=== PATIENT | female | born 1950 | race Caucasian/White ===

== ENCOUNTER 2018-01-16 07:05 | Day surgery (SDC) | payer BC, SELFPAY ==
[2018-01-16 07:20] VITALS: BP 140/75; PULSE 77; RESP 14; TEMP 36.9; O2SAT 96; BMI 27.9
[2018-01-16 08:20] VITALS: BP 140/75; BP 96/50; PULSE 76; RESP 18; TEMP 36.1; O2SAT 99
[2018-01-16 08:25] VITALS: BP 112/63; BP 140/75; PULSE 73; RESP 17; O2SAT 98
[2018-01-16 08:30] VITALS: BP 132/72; BP 140/75; PULSE 73; RESP 16; O2SAT 98
[2018-01-16 08:35] VITALS: BP 123/72; BP 140/75; PULSE 67; RESP 17; TEMP 36.2; O2SAT 97
--- NOTE | 2018-01-16 08:44 | PCM.OPRPT ---
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 After obtaining informed consent, the scope was passed under direct visualization. Throughout the procedure, the patient's blood pressure pulse and position saturations were monitored continuously anesthesia. The colonoscope was introduced through the anus and advanced to the cecum, identified by the ileocolic anastomosis. The colonoscopy was performed without difficulty. The patient tolerated procedure well. Quality of bowel prep was good. Findings: The perianal and digital rectal exam revealed residual external hemorrhoidal tissue, internal hemorrhoid at the right posterior cushion. Moderate diverticulosis was noted in the sigmoid colon. The ileocolic anastomosis was widely patent. Otherwise the colon (entire examined portion) appeared normal. Retroflexed view of the distal rectum and anal verge showed an internal hemorrhoid. Impression: 1. Widely patent ileocolic anastomosis 2. Moderate diverticulosis of the sigmoid colon 3. Internal hemorrhoid-grade 1 Recommendations: Repeat colonoscopy in 2 years for screening purposes and history of colon cancer - Complications none
[2018-01-16 08:52] VITALS: BP 140/75
== END 2018-01-16 08:58 | disposition home or self-care (01) ==
LOC: EN 07:05 → AC 07:07
PROVIDERS: Family Provider Family Medicine; PCP Family Medicine; Visit Provider Surgery
PROC: 0DJD8ZZ Inspection of Lower Intestinal Tract, Via Natural or Artificial Opening Endoscopic (ICD-10-PCS; CPT 45378; principal; 2018-01-16 07:55)
DX: K57.30 Diverticulosis of large intestine without perforation or abscess without bleeding (principal); K64.8 Other hemorrhoids; Z85.038 Personal history of other malignant neoplasm of large intestine; Z87.891 Personal history of nicotine dependence
CPT/HCPCS: 45378; J7120

== ENCOUNTER → 2018-10-22 09:08 | Outpatient (CLI) | payer BC, SELFPAY | PROVIDERS: Family Provider Family Medicine; PCP Family Medicine; Visit Provider Family Medicine | DX: R31.9 Hematuria, unspecified (principal) | CPT/HCPCS: 87086 ==

== ENCOUNTER → 2018-10-29 09:51 | Outpatient (CLI) | payer BC, SELFPAY ==
--- NOTE | 2018-10-29 09:55 | US_ITS ---
STUDY: RENAL ULTRASOUND - COMPLETE REASON FOR EXAM: Female, 68 years old. Hematuria TECHNIQUE: Ultrasound evaluation of the kidneys was performed with real-time and static dugan-scale imaging. COMPARISON: None. FINDINGS: RIGHT KIDNEY: Normal location of the right kidney, which is normal in size. The right kidney measures 10.1 x 4.9 x 3.9 cm. There is a normal cortex of the right kidney. The renal cortex measures 1.2 cm. There is no right renal mass or cyst. There are no right renal calculi. There is no right hydronephrosis. DISTAL RIGHT URETER: There is non-visualization of the distal right ureter. LEFT KIDNEY: Normal location of the left kidney, which is normal in size. The left kidney measures 10.0 x 4.3 x 5.7 cm. There is a normal cortex of the left kidney. The renal cortex measures 1.3 cm. There is no left renal mass or cyst. There are no left renal calculi. There is no left hydronephrosis. DISTAL LEFT URETER: There is non-visualization of the distal left ureter. BLADDER: The distended urinary bladder has a volume of 536 ml. The post void urinary bladder has a volume of 18 ml. There is a normal wall thickness of the distended urinary bladder. There is no demonstrated mass within the urinary bladder. There are no demonstrated bladder calculi. US/Kidney and Bladder IMPRESSION: Normal ultrasound of the kidneys. Mild post void residual in the urinary bladder. Electronically Signed: Christiano Hooks DO at 23:52 EST Tel [phone], Service support ,
== END ==
PROVIDERS: Family Provider Family Medicine; PCP Family Medicine; Referring Provider Family Medicine; Visit Provider Family Medicine
DX: R31.9 Hematuria, unspecified (principal)
CPT/HCPCS: 76770

== ENCOUNTER → 2018-11-05 13:19 | Outpatient (CLI) | payer BC, SELFPAY ==
--- NOTE | 2018-11-05 13:21 | US_ITS ---
STUDY: ULTRASOUND OF THE FEMALE PELVIS - COMPLETE REASON FOR EXAM: Female, 68 years old. Postmenopausal bleeding x2 weeks LMP: Unknown. TECHNIQUE: Transabdominal and Transvaginal TECHNICAL QUALITY: Adequate. COMPARISON: None. FINDINGS: The uterus is retroverted and is in a midline position. The uterus measures 7.3 x 4.9 x 3.8 cm. There is a Nabothian cyst of the cervix. The endometrium measures 5 mm in thickness, and is fluid distended. There is no demonstrated endometrial mass. Possible pedunculated fibroid measuring 2 x 1.9 x 1.4 cm. Another mass in the pelvis measuring 3.2 x 4.3 x 2.3 cm. Unsure if this also represents a fibroid. I.U.D. - The patient does not have an I.U.D. The right ovary is visualized. The right ovary measures 3.3 x 2.6 x 2.1 cm. Dominant anechoic follicle measuring 1.6 x 1.4 x 0.6 cm. There is no visualized right adnexal mass or complex lesion. There is normal arterial and normal venous vascularity. The left ovary is visualized. The left ovary measures 3.3 x 3.1 x 1.4 cm. There is no left ovarian cyst or ovarian mass. There is no visualized left adnexal mass or complex lesion. There is normal arterial and normal venous vascularity. There is no fluid in the cul-de-sac. The pre void volume of the bladder was 209 ml. US/Pelvic (Non ) IMPRESSION: 1. Fluid distended endometrium measuring 5 mm. 2. Possible uterine fibroids versus pelvic masses. Difficult to evaluate with ultrasound. Consider female pelvic MRI to further evaluate. Electronically Signed: Anthony Madsen DO at 9:55 EST Tel , Service support ,
--- NOTE | 2018-11-05 13:22 | US_ITS ---
STUDY: ULTRASOUND OF THE FEMALE PELVIS - COMPLETE REASON FOR EXAM: Female, 68 years old. Postmenopausal bleeding x2 weeks LMP: Unknown. TECHNIQUE: Transabdominal and Transvaginal TECHNICAL QUALITY: Adequate. COMPARISON: None. FINDINGS: The uterus is retroverted and is in a midline position. The uterus measures 7.3 x 4.9 x 3.8 cm. There is a Nabothian cyst of the cervix. The endometrium measures 5 mm in thickness, and is fluid distended. There is no demonstrated endometrial mass. Possible pedunculated fibroid measuring 2 x 1.9 x 1.4 cm. Another mass in the pelvis measuring 3.2 x 4.3 x 2.3 cm. Unsure if this also represents a fibroid. I.U.D. - The patient does not have an I.U.D. The right ovary is visualized. The right ovary measures 3.3 x 2.6 x 2.1 cm. Dominant anechoic follicle measuring 1.6 x 1.4 x 0.6 cm. There is no visualized right adnexal mass or complex lesion. There is normal arterial and normal venous vascularity. The left ovary is visualized. The left ovary measures 3.3 x 3.1 x 1.4 cm. There is no left ovarian cyst or ovarian mass. There is no visualized left adnexal mass or complex lesion. There is normal arterial and normal venous vascularity. There is no fluid in the cul-de-sac. The pre void volume of the bladder was 209 ml. US/Transvaginal Non- IMPRESSION: 1. Fluid distended endometrium measuring 5 mm. 2. Possible uterine fibroids versus pelvic masses. Difficult to evaluate with ultrasound. Consider female pelvic MRI to further evaluate. Electronically Signed: Anthony Madsen DO at 9:55 EST Tel , Service support ,
== END ==
PROVIDERS: Family Provider Family Medicine; PCP Family Medicine; Referring Provider Urology; Visit Provider Urology
DX: N95.0 Postmenopausal bleeding (principal)
CPT/HCPCS: 76830; 76856; 93976

== ENCOUNTER → 2018-11-06 10:42 | Outpatient (CLI) | payer BC, SELFPAY ==
--- NOTE | 2018-11-06 | EMB_PTH ---
PATIENT: SANTI NAM LOC: [facility] U#:[id number] AGE/SX: 75/F ROOM: RE11/06/[address]: PAYAL Kilpatrick : 1950 BED: DIS: SPEC #: [id number] RECD: 11/06/18 13:08 STATUS: LOLA KEYSHAWN #: [id number] AARON: 11/06/18 00:[address]: Lorie Landry NP DEPT: SURGICAL PATHOLOGY RECD BY: Fabiano Malave ENTERED: 11/06/18 14:24 SP TYPE: ENDOM BX/C MAO DR: Dr. Adrián Mckee MD Tissues: Endometrium, NOS Procedures: Surgery Specimen Level IV HEADER OPERATION: Endometrial biopsy PRE-OP DIAGNOSIS: Postmenopausal bleeding TISSUE SUBMITTED: Endometrial biopsy MICROSCOPIC DIAGNOSIS Endometrium, biopsy: Scant strips of benign superficial glandular mucosa. See comment. AM:john 11/07/18 COMMENT The specimen primarily consists of mucous. Clinical correlation is suggested. MICROSCOPIC DESCRIPTION Slides are reviewed. GROSS DESCRIPTION Received is one container labeled with the patient's name and not further designated. The specimen consists of multiple irregular fragments of light pink-figueroa mucoid tissue that in aggregate measure 2 x 1.8 x 0.2 cm. The specimen is totally submitted in one cassette. / AM:john 11/06/18 TC:5 [facility]: [id number]
[2018-11-06 10:11] VITALS: BMI 27.9
[2018-11-08 20:44] LABS: Cancer Antigen 125 9.3 U/mL (0.0-38.1); Carbohydrate Ag 19-9 2261 5 U/mL (0-35); Carcinoembryonic Antigen 7.6 ng/mL (0.0-4.7)
[2018-11-13 11:11] LABS: HPV APTIMA, High Risk Negative (Negative)
== END ==
LOC: PAVLAB 10:44 → LABSPEC 13:39
PROVIDERS: Family Provider Family Medicine; PCP Family Medicine; Referring Provider Nurse Practitioner Women's Health; Visit Provider Nurse Practitioner Women's Health
DX: N95.0 Postmenopausal bleeding (principal); Z12.4 Encounter for screening for malignant neoplasm of cervix
CPT/HCPCS: 82378; 86301; 86304; 87624; 88175; 88305; G0145

== ENCOUNTER → 2018-11-14 12:52 | Outpatient (CLI) | payer BC, SELFPAY ==
[2018-11-06 10:11] VITALS: BMI 27.9
--- NOTE | 2018-11-14 13:19 | MRI_ITS ---
STUDY: MRI FEMALE PELVIS WITHOUT AND WITH IV CONTRAST REASON FOR EXAM: Female, 68 years old. Uterine mass, vaginal bleeding. History of colon cancer. TECHNIQUE: Multisequence multiplanar MRI of the pelvis without and with IV contrast. Gadavist, 7 mL. COMPARISON: Ultrasound pelvis 11/05/2018, CT abdomen and pelvis 01/16/2017 FINDINGS: Body wall soft tissues: No acute process. No inguinal lymphadenopathy. Osseous structures: No evidence of lytic or blastic metastatic disease. Small bowel: No acute process. Urinary tract: Distal ureters, urinary bladder normal. Ovaries: Unremarkable appearance of the left ovary with no mass or cyst. There are 2 small follicles of the right ovary measuring 9.5 mm and 7.5 mm respectively. Vagina: Normal. Cervix: Small nabothian cysts, the largest measuring approximately 8.3 mm. Uterus: The cervix anteverted, uterus retroflexed. There is a septation running down the entire length of the endometrial cavity, complete septate uterus with what appears to be a single cervix. The endometrium within the right-sided endometrium measures up to 6.6 cm and the left sided endometrium 7 mm. There is no evidence of endometrial mass. There is no evidence of myometrial mass. Large bowel: Normal appearance of the evaluated portions of the sigmoid colon. In the proximal 3rd of the rectum, there is a mass of the anterior wall the rectum measuring approximately 3.5 cm craniocaudal, 2.3 cm anterior-posterior, and 3 cm transverse. Centrally the mass has fairly abundant T2 signal suggesting mucoid features. The mass involves the rectal wall from the right 10:00 position, around the anterior margin to the leftward 5:00 position. There is obliteration of the muscular propria with extension of the mass through the muscular propria along its anterior and left anterior lateral margin. The axis of imaging along the mass makes it somewhat difficult to assess the extent of anterior extension. The mass appears to penetrate through the mesial rectal fascial/peritoneal reflection with its anterior most margin abutting the left posterior margin of the uterus. The inferior margin of the mass lies approximately 6.4 cm from the anorectal angle, and 9 cm from the anal verge. Suspected. The level of the mass on the left, a lymph node in the perirectal fat measures 4.1 mm. No other definitive adenopathy is evident. MRI/Pelvis W/WO Contrast IMPRESSION: 1. Mass within the proximal 3rd of the rectum. The left anterior portion of the mass appears to penetrate the mesorectal fascia/peritoneal reflection. Approximate staging: T4a N1 Multiple Savage images are saved to the PACS archive. 2. There is no evidence of myometrial mass. The cervix anteverted, the uterus retroflexed. Complete septate uterus. Electronically Signed: Von Mcdermott MD at 8:52 EST Tel , Service support ,
== END ==
PROVIDERS: Family Provider Family Medicine; PCP Family Medicine; Referring Provider Nurse Practitioner Women's Health; Visit Provider Nurse Practitioner Women's Health
DX: C18.0 Malignant neoplasm of cecum (principal); N95.0 Postmenopausal bleeding
CPT/HCPCS: 72197; A9585

== ENCOUNTER 2018-12-06 12:42 | Day surgery (SDC) | payer BC, SELFPAY ==
[2018-11-06 10:11] VITALS: BMI 27.9
[2018-12-06] VITALS (7 sets, daily range): BP systolic 100–149; BP diastolic 71–85; PULSE 63–74; RESP 14–16; TEMP 36.2–36.5; O2SAT 97–100; BMI 25.2
--- NOTE | 2018-12-06 08:20 | HP.PCM_ITS ---
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 Patient was diagnosed with ascending adenocarcinoma in December 2016 and underwent right hemicolectomy and also chemotherapy. Patient's port was removed in 2018. However patient began having postmenopausal vaginal bleeding. Upon workup patient was had found to have abnormal glandular cells and a subsequent MRI was performed. This did show a mass in the pelvis which invaded the uterus as well as the rectum. Patient has been followed by Dr. Whyte. She was referred to [facility] regarding oncology as well as colorectal emplaning to have chemotherapy starting 12/11/18. Patient still having vaginal bleeding pad every 2-3 days denies any blood per rectum however is also difficult to tell occasionally when she wipes she will have blood. Past Medical History Past Medical History (Chronic Problems): Chronic Problems (Last Updated 12/06/18 @ 08:19 by Emma Zurita MD) S/P colectomy (Chronic) right colectomy Acid reflux (Chronic) Medical History: Medical History (Last Updated 12/06/18 @ 08:19 by Emma Zurita MD) Acid reflux (Chronic) K21.9 Encounter for adjustment or management of vascular access device (Acute) Z45.2 Port removed in office 11/27/2017 Adenocarcinoma of cecum (Resolved) C18.0 Will get a repeat colonoscopy in a year at the end of December 2017. Peritoneal metastases C78.6 Allergies No Known Allergies Allergy (Verified 12/03/18 08:10) Home Medications: Ambulatory Orders Medication Instructions Recorded Multivitamins,Therapeutic 1 tab PO DAILY 01/12/17 [Multivitamin] Omeprazole [Prilosec] 20 mg PO DAILY 01/12/17 Fexofenadine HCl 180 mg PO DAILY 01/15/17 Docusate Sodium [Colace] 100 mg PO DAILY 12/06/18 Surgical History: Surgical History (Last Updated 11/06/18 @ 09:54 by Marisel Dimas) S/P laparoscopic colectomy Z90.49 History of Z98.891 s/p port placement Surgical History: - - right hemicolectomy 01/2017, colonoscopy 01/08 & 01/09 Psychiatric 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: - - Postmenopausal bleeding due to tumor invading the uterus Smoking Status: Former smoker - *Family History Maternal Family History: Family History (Last Updated 11/06/18 @ 09:55 by Marisel Dimas) Mother Hypertension Father Melanoma Brother Melanoma Aunt Breast cancer Review of Systems Constitutional: Denies: Anorexia Eyes: Denies: Blurred vision Cardiovascular: Denies: Chest Pain Respiratory: Denies: Shortness of breath at rest Gastrointestinal: Denies: Abdominal Pain Gynecological: Reports: Vaginal bleeding VTE Information - Inpt Only VTE Present on Admission: Yes VTE Mechan Device Prophylaxis: SCD's - Physical Exam General: Alert, Oriented x3, Cooperative, No apparent distress HEENT: Atraumatic Neck: Supple Lungs: Normal air movement Cardiovascular: Regular rate Abdomen: Soft, Non Tender, Non-Distended, - - Midline incision well-healed Extremities: No clubbing, No cyanosis, No edema Skin: No rashes Neurological: Cranial nerves II-XII grossly intact Psych/Mental Status: Normal Affect Body Mass Index (BMI) 27.9 Assessment/Plan All Active Problems (Last Updated 12/06/18 @ 08:19 by Emma Zurita MD) s/p port placement (Acute) 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 Patient has been counseled as to the risks/benefits of the procedure. I have explained the risks of the surgery, including but not limited to: infection, bleeding, injury to any blood vessels/nerves, injury to lungs (such as pneumothorax or hemothorax and need for chest tube), not having any access, nonfunctioning of port due to thrombosis, infection of port, etc. the patient understands and agrees to proceed. I have answered all the patient's questions to the patient?s satisfaction and the patient has no further questions. Emma Zurita M.D. Pager: [phone] [facility] [address] [place] [address], [facility], [address] [place] [address] Office: [phone]
--- NOTE | 2018-12-06 13:50 | PCM.HP.STD ---
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 Patient was diagnosed with ascending adenocarcinoma in December 2016 and underwent right hemicolectomy and also chemotherapy. Patient's port was removed in 2018. However patient began having postmenopausal vaginal bleeding. Upon workup patient was had found to have abnormal glandular cells and a subsequent MRI was performed. This did show a mass in the pelvis which invaded the uterus as well as the rectum. Patient has been followed by Dr. Whyte. She was referred to [facility] regarding oncology as well as colorectal emplaning to have chemotherapy starting 12/11/18. Patient still having vaginal bleeding pad every 2-3 days denies any blood per rectum however is also difficult to tell occasionally when she wipes she will have blood. Past Medical History Past Medical History (Chronic Problems): Chronic Problems (Last Updated 12/06/18 @ 08:19 by Emma Zurita MD) S/P colectomy (Chronic) right colectomy Acid reflux (Chronic) Medical History: Medical History (Last Updated 12/06/18 @ 08:19 by Emma Zurita MD) Acid reflux (Chronic) K21.9 Encounter for adjustment or management of vascular access device (Acute) Z45.2 Port removed in office 11/27/2017 Adenocarcinoma of cecum (Resolved) C18.0 Will get a repeat colonoscopy in a year at the end of December 2017. Peritoneal metastases C78.6 Allergies No Known Allergies Allergy (Verified 12/03/18 08:10) Home Medications: Ambulatory Orders Medication Instructions Recorded Multivitamins,Therapeutic 1 tab PO DAILY 01/12/17 [Multivitamin] Omeprazole [Prilosec] 20 mg PO DAILY 01/12/17 Fexofenadine HCl 180 mg PO DAILY 01/15/17 Docusate Sodium [Colace] 100 mg PO DAILY 12/06/18 Surgical History: Surgical History (Last Updated 11/06/18 @ 09:54 by Marisel Dimas) S/P laparoscopic colectomy Z90.49 History of Z98.891 s/p port placement Surgical History: - - right hemicolectomy 01/2017, colonoscopy 01/08 & 01/09 Psychiatric History: 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: - - Postmenopausal bleeding due to tumor invading the uterus Smoking Status: Former smoker - *Family History Maternal Family History: Family History (Last Updated 11/06/18 @ 09:55 by Marisel Dimas) Mother Hypertension Father Melanoma Brother Melanoma Aunt Breast cancer Review of Systems Constitutional: Denies: Anorexia Eyes: Denies: Blurred vision Cardiovascular: Denies: Chest Pain Respiratory: Denies: Shortness of breath at rest Gastrointestinal: Denies: Abdominal Pain Gynecological: Reports: Vaginal bleeding VTE Information - Inpt Only VTE Present on Admission: Yes VTE Mechan Device Prophylaxis: SCD's - Physical Exam General: Alert, Oriented x3, Cooperative, No apparent distress HEENT: Atraumatic Neck: Supple Lungs: Normal air movement Cardiovascular: Regular rate Abdomen: Soft, Non Tender, Non-Distended, - - Midline incision well-healed Extremities: No clubbing, No cyanosis, No edema Skin: No rashes Neurological: Cranial nerves II-XII grossly intact Psych/Mental Status: Normal Affect Body Mass Index (BMI) 27.9 Assessment/Plan All Active Problems (Last Updated 12/06/18 @ 08:19 by Emma Zurita MD) s/p port placement (Acute) 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 Patient has been counseled as to the risks/benefits of the procedure. I have explained the risks of the surgery, including but not limited to: infection, bleeding, injury to any blood vessels/nerves, injury to lungs (such as pneumothorax or hemothorax and need for chest tube), not having any access, nonfunctioning of port due to thrombosis, infection of port, etc. the patient understands and agrees to proceed. I have answered all the patient's questions to the patient?s satisfaction and the patient has no further questions. Emma Zurita M.D. Pager: [phone] [facility] [address] [place] [address], [facility], [address] [place] [address] Office: [phone]
[2018-12-06] MEDS: Cefazolin 2 GM in 0.9% Normal Saline 100 ML IV (14:24)
[2018-12-06] MEDS: Bupivacaine Mpf 0.5% 30 ML VIAL (14:45)
--- NOTE | 2018-12-06 15:11 | PCM.OPRPT ---
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 Placement of left IJ Port-A-Cath. 2. Use of fluoroscopy. 3. Use of ultrasound Type of Anesthesia:: MAC/Supplemental/Local Anesthesiologist: Vik Faith Special Medications: ancef 2 grams IV x1 Specimen's removed: none Estimated Blood Loss (mL): minimal Fluids Replaced: 900 cc Description of Procedure: After informed consent was given, the patient was brought to the operating room and placed in the supine position. Appropriate time out protocol was followed. He was then given IV conscious sedation for anesthesia. The patient's bilateral upper chest and neck were then prepped with a surgical skin preparation and sterile surgical drapes were placed. After proper landmarks were ascertained, the skin at the upper left chest area was then infiltrated with 1:1 mixture of 1% lidocaine with epinephrine and 0.5% maricaine. A needle trocar was then inserted into the left internal jugular vein with ultrasound guidance-multiple vessels were viewed with u/s and the left IJ was chosen-- and there was good aspiration of venous blood. A wire was then threaded into the needle trocar and this was visualized under fluoroscopy to ensure that the wire was in the superior vena cava. Once this was done, then the needle trocar was removed. A small skin cleveland was made with an 11 blade knife at the wire entrance site. The dilator with the introducer sheath attached was then placed over the wire into the left internal jugular vein via the Seldinger technique and this was visualized under fluoroscopy. The dilator and sheath were in proper position as visualized by fluoroscopy. A subcutaneous pocket was then created caudad to the catheter insertion site. A transverse skin incision was made after the skin and subcutaneous tissues were infiltrated with local anesthetic. Blunt dissection was then used to create a space large enough for placement of the subcutaneous port. The catheter was then tunneled into the subcutaneous pocket. The wire and dilator were then removed. The catheter was then threaded into the introducer sheath and was positioned with its tip at the junction of the superior vena cava and the right atrium as visualized under fluoroscopy. The excess catheter was transected. The catheter was then attached to the subcutaneous port using manufacturers guidelines. The catheter was flushed with a heparin saline mixture prior to placement. Hemostasis was carefully controlled with electrocautery. The port was sutured to the subcutaneous fascia using 3-0 PDS suture at two sites. The port was then placed in the subcutaneous pocket and the sutures were ligated. The incision were reapproximated with interrupted subdermal 3-0 vicryl sutures. The skin was reapproximated with 3-0 nylon suture in a interrupted fashion. Steristrips were used for reinforcement of the skin closure at IJ insertion site and a sterile opsite dressings were applied. The patient tolerated the procedure well. Implants Used: [employer] PowerPort isp M.R.I. 6Fr Lot [id number] Grafts/Implants Used: [employer] PowerPort isp M.R.I. 6Fr Lot [id number] - Complications none
--- NOTE | 2018-12-06 15:17 | DCINST_ITS ---
Discharge Diet: No Restrictions Discharge Activity: May not drive while taking narcotic pain medications. May shower in (days): 5 - keep port dry for 5 days, ok for lower showers or cover with taped off ziplock bag Lifting Restrictions: no lifting >15 lb w left arm x 1 week Call your doctor if your incision/area has: Continuous Slow Oozing, Sudden Increased Bleeding, Increased Pain/ Swelling, Increased Redness, Foul Smelling Discharge, Swelling at the incision site Call your doctor if you observe: Fever of 101 or Higher Remove Dressing in (days):: 3 - ok to remove neck opsite tomorrow and ok to keep other opsite in place for 2-3 days Allergies/Adverse Reactions: Allergies No Known Allergies Allergy (Verified 12/03/18 08:10) Medications to take at Discharge Multivitamins,Therapeutic [Multivitamin] 1 tab PO DAILY 01/12/17 Omeprazole [Prilosec] 20 mg PO DAILY 01/12/17 Fexofenadine HCl 180 mg PO DAILY 01/15/17 Docusate Sodium [Colace] 100 mg PO DAILY 12/06/18 Primary Care Physician: Adrián Mckee MD [Primary Care Provider] - Test Results: Test results from this visit will be discussed in further detail at your follow- up appointment, if applicable. Please Follow Up With: Emma Zurita MD - After 5 PM and on the weekends call [phone] with any concerns When: Call the office on Sunday for a follow-up appointment in 10 days from surge Proposed Discharge Date: 12/06/18
--- NOTE | 2018-12-06 15:19 | RAD_ITS ---
STUDY: X-RAY CHEST REASON FOR EXAM: Female, 68 years old. Status post port placement TECHNIQUE: Single AP portable view of the chest. COMPARISON: 05/19/2017 chest x-ray FINDINGS: There is a left-sided Port-A-Cath the tip is in the superior vena cava. There is no evidence of pneumothorax. The lungs are clear and expanded. There is no demonstrated pleural abnormality. There is borderline cardiomegaly. Normal mediastinum and mamta. Normal visualized pulmonary arteries. There is atherosclerotic tortuosity of the aortic arch and descending thoracic aorta. Normal visualized thoracic spine. Normal visualized ribs, clavicles, and shoulders. There is no demonstrated abnormality of the visualized soft tissue structures of the upper abdomen. RAD/CXR for Line Placement IMPRESSION: Left-sided Port-A-Cath tip in the superior vena cava. Electronically Signed: Susy Gee MD at 15:42 EDT Tel , Service support ,
== END 2018-12-06 16:26 | disposition home or self-care (01) ==
LOC: SDC 12:42 → AC 12:45
PROVIDERS: Family Provider Family Medicine; PCP Family Medicine; Referring Provider Surgery; Visit Provider Surgery
PROC: (CPT 36561; principal; 2018-12-06 14:15)
DX: Z45.2 Encounter for adjustment and management of vascular access device (principal); C78.6 Secondary malignant neoplasm of retroperitoneum and peritoneum; C18.0 Malignant neoplasm of cecum; K21.9 Gastro-esophageal reflux disease without esophagitis; Z90.49 Acquired absence of other specified parts of digestive tract; Z87.891 Personal history of nicotine dependence; Z85.038 Personal history of other malignant neoplasm of large intestine
CPT/HCPCS: 00532; 36561; 71045; 77001; J7120

== ENCOUNTER 2023-05-29 15:27 | Inpatient (IN) | payer MEDICARE, OTHER, SELFPAY ==
[2023-05-29] VITALS (12 sets, daily range): BP systolic 92–130; BP diastolic 48–65; PULSE 18–122; RESP 16–22; TEMP 36.2–37.2; O2SAT 96–100; BMI 25.9; BMI 25.4
--- NOTE | 2023-05-29 15:30 | EKG12_ITS ---
Test Reason : DIZZY Blood Pressure : / mmHG Vent. Rate : 078 BPM Atrial Rate : 078 BPM P-R Int : 194 ms QRS Dur : 084 ms QT Int : 356 ms P-R-T Axes : 073 064 077 degrees QTc Int : 405 ms Poor data quality, interpretation may be adversely affected Normal sinus rhythm Normal ECG Confirmed by DANIELLE FORBES, AMAURI ([id number]), scientific editor RYAN BOWEN ([id number]) on 06/01/2023 11:23:00 AM Referred By: Confirmed By:AMAURI SANTOS MD
--- NOTE | 2023-05-29 15:31 | EDS_ITS ---
HPI History of Present Illness Chief Complaint: Hypotension Narrative Narrative: Patient has a history of colon cancer, she has not been on chemotherapy for over a month, about 3 weeks ago she had surgery at [facility] and had an ileostomy placed. She has been weak since then however over the past 2 to 3 days she has been increasingly weak, she has been lightheaded quite unsteady when she walks around. She was found to have somewhat low blood pressure her visiting home nurse today she was 80s over 50s. She tells me she does feel lightheaded when she stands up. She has no vertiginous symptoms. She is denying any fevers or chills. She tells me her p.o. intake is relatively adequate per her, no excessive output in the ostomy. No urinary symptoms. She is denying any chest pain or shortness of breath. [facility] Medical History Acid reflux Adenocarcinoma of cecum Encounter for adjustment or management of vascular access device Peritoneal metastases s/p port placement Home Medications omeprazole 20 mg capsule,delayed release 20 mg PO DAILY ACID REFLUX 01/12/17 [History Last Taken 12/06/18 07:30] fexofenadine 180 mg tablet 180 mg PO DAILY PRN ALLERGIES 01/15/17 [History Last Taken Unknown] amlodipine 5 mg tablet 5 mg PO DAILY BLOOD PRESSURE 05/29/23 [History Last Taken 05/28/23] lisinopril 30 mg tablet 30 mg PO DAILY BLOOD PRESSURE 05/29/23 [History Last Taken 05/28/23] Allergy/AdvReac Type Severity Reaction Status Date / Time No Known Allergies Allergy Verified 05/29/23 15:31 Family History Mother Hypertension Father Melanoma Brother Melanoma Aunt Breast cancer Surgical History History of bowel resection History of Hx of ileostomy S/P laparoscopic colectomy s/p port placement (~12/06/18) Social History Smoking Status: Former smoker alcohol intake: current alcohol intake frequency: holidays/special occasions only substance use type: does not use caffeine: Yes what type of physical activity do you participate in: walking and weight training frequency: daily seatbelt use: always do you feel safe at home: Yes additional social history: - [employer]-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 Generalized weakness. ENT: No upper airway congestion, normal voice Neck: No neck pain Cardiovascular: No chest pain no palpitations. Respiratory: No shortness of breath or cough Gastrointestinal: No abdominal pain, nausea or vomiting. Normal output of the ostomy Genitourinary: No dysuria Musculoskeletal: Denies myalgias. Skin: No rash Neurological: No memory loss, confusion or any focal weakness Psych: No recent behavioral changes Hematologic: No easy bleeding or easy bruising EXAM Physical Exam Narrative Exam Narrative: Physical exam Blood pressure in the ED is 104/48. Heart rate is 82. General: Well nourished, Well developed, No Acute Distress Head: Normocephalic, Atraumatic Eyes: Conjunctiva not pale ENT: Dry mucous membranes Neck: Supple, Nontender, No lymphadenopathy Cardiovascular: Regular rate, Regular rhythm Chest wall: Mediport site is clean dry and intact Respiratory: No distress, CTA bilaterally Abdomen: Soft, Nontender, Nondistended. Ostomy is intact with output in the ostomy bag without any signs of infection. Back: Nontender, Normal Inspection. Negative for: CVA tenderness Extremities: Nontender, No edema Skin: Normal color, No rash Neurological: Alert, Normal Strength, Normal Sensation Const Vital Signs: 05/29/23 15:28 05/29/23 16:53 05/29/23 16:54 Temperature 97.7 F L Temperature Source Temporal Pulse Rate 82 79 Respiratory Rate 16 16 Respiratory Pattern Normal Blood Pressure 104/48 L 111/50 L Blood Pressure Mean 66 70 Pulse Ox 100 99 Oxygen Delivery Method Room Air Room Air MDM MDM MDM Narrative Medical decision making narrative: Patient is found to have acute kidney injury. Creatinine is 10, BUN is 144. Patient is also hyperkalemic at 7.2. There are no EKG changes. Patient received IV fluids and we will treat the hyperkalemia. At this time there is no evidence of sepsis or any kind of infection the CT does show possible cystitis however the patient has not made urine in a few days. I talked to the hospitalist for admission. I have a call out to nephrology to see if the patient meets criteria for emergent dialysis. In the meantime we will admit to the intensive care unit. Patient is not acidotic therefore I did not give bicarb. Patient is not have any EKG changes or instability therefore I did not give calcium for the hyperkalemia Lab Data Labs: Laboratory Results - last 24 hr 05/29/23 05/29/23 15:25 15:36 WBC 14.5 H RBC 4.29 Hgb 11.2 L Hct 36.3 L MCV 84.6 MCH 26.1 L MCHC 30.9 L RDW Std Deviation 53.7 H RDW Coeff of Ismael 17.5 H Plt Count 613 H MPV 9.9 Immature Gran % (Auto) 0.600 Neut % (Auto) 84.8 H Lymph % (Auto) 6.0 L [place] % (Auto) 8.3 Eos % (Auto) 0.1 Baso % (Auto) 0.2 Absolute Neuts (auto) 12.3 H Absolute Lymphs (auto) 0.87 Nucleated RBC % 0 PT 14.3 INR 1.1 Sodium 128 L Potassium 7.2 H* Chloride 95 L Carbon Dioxide 13.0 L Anion Gap 20 H BUN 144 H* Creatinine 10.00 H* Estim Creat Clear Calc 5.02 Est GFR (MDRD) Af Amer 5 L Est GFR (MDRD) Non-Af 4 L BUN/Creatinine Ratio 14.4 Glucose 116 H Lactic Acid 0.9 Calcium 10.5 H Total Bilirubin 0.40 AST 17 ALT 20 Alkaline Phosphatase 202 H Total Protein 8.8 H Albumin 4.1 Globulin 4.7 H Albumin/Globulin Ratio 0.9 Lipase 328 H Radiography Diagnostic Testing: Clinical Impression(s) from Imaging Studies Chest X-Ray 05/29/23 15:50 IMPRESSION: Streaky opacities in the right lung base could represent atelectasis versus infection. Electronically Signed: Carson Pruett MD at 16:27 EDT , Abdomen/Pelvis CT 05/29/23 16:19 IMPRESSION: Findings suspicious for cystitis. Correlate with urinalysis. Findings suspicious for enteritis. Bibasilar lung consolidations versus atelectasis. Consider chest CT for further evaluation. Postsurgical changes status post partial bowel resection with ileostomy in place. Electronically Signed: Carson Pruett MD at 17:02 EDT , Chest x-ray read by me as normal Critical Care Time Critical care time (excluding procedures): 30-74 minutes, Discussing w/Patient &/or Family/[employer]ipes [employer]sembler, Discussing w/Consultants, Arranging Admission or Transfer, Performing Direct Patient Care at Bedside and - (35 minutes) Discharge Plan Triage Chief Complaint: Hypotension Other Complaint: Dizziness ED Provider: Ned Posey Dx/Rx/DC Orders Clinical Impression: MAJO (acute kidney injury), Anuria, Dehydration, Acute hyperkalemia Prescriptions: No Action omeprazole 20 MG capsule 20 mg PO DAILY fexofenadine 180 MG tablet 180 mg PO DAILY PRN (Reason: ALLERGIES) amlodipine 5 mg tablet 5 mg PO DAILY lisinopril 30 mg tablet 30 mg PO DAILY Primary Care Provider: Adrián Mckee Referrals: Adrián Mckee MD [Primary Care Provider] - Disposition Disposition: Acute Care Hospital [facility]
[2023-05-29] MEDS: 0.9% Normal Saline 1,000 ML 1000 ML IV (15:34)
[2023-05-29 15:46] LABS: Absolute Lymphocyte Count 0.87 X10^3/uL (0.83-4.51); Absolute Neutrophil Count 12.3 X10^3/uL (2.0-7.7); Basophil# 0.03 X10^3/uL; Basophil% 0.2 % (0-1); Eosinophil# 0.01 X10^3/uL; Eosinophils% 0.1 % (0-5); Hematocrit 36.3 % (37-47); Hemoglobin 11.2 g/dL (12.0-15.0); Lymphocyte # 0.87 X10^3/ul (0.83-4.51); Mean Corp Hgb Conc 30.9 g/dL (32-36); Mean Corpuscular Hgb 26.1 pg (27.0-32.0); Mean Corpuscular Volume 84.6 fL (81-99); Mean Platelet Vol. 9.9 fl (6.2-12.0); Monocyte% 8.3 % (0-10); NRBC Flagged by Analyzer 0 % (0-5); Neutrophil % 84.8 % (47-70); Platelet Count 613 K/mm3 (150-450); RBC Distribution Width CV 17.5 % (11.6-14.6); RBC Distribution Width SD 53.7 fl (35.1-43.9); Red Blood Count 4.29 M/mm3 (4.2-5.4); White Blood Count 14.5 K/mm3 (4.4-11.0)
--- NOTE | 2023-05-29 15:50 | RAD_ITS ---
INDICATION: weakness EXAMINATION/TECHNIQUE: X-RAY - XR Chest 1 View COMPARISON: 12/06/2018. FINDINGS: Streaky opacities in the right lung base. Tortuous and calcified thoracic aorta. The heart is not enlarged. Left sided chest port. No pleural effusion or pneumothorax. Degenerative changes of the thoracic spine. RAD/Chest 1 View (Portable) IMPRESSION: Streaky opacities in the right lung base could represent atelectasis versus infection. Electronically Signed: Carson Pruett MD at 16:27 EDT ,
[2023-05-29 15:57] LABS: International Normalized Ratio 1.1; Prothrombin Time (Protime)PT. 14.3 SECONDS (11.7-14.9)
[2023-05-29 16:12] LABS: ALB/GLOB Ratio 0.9 RATIO (0.9-2.4); AST(SGOT) 17 U/L (15-37); Alanine Aminotransfer ALT/SGPT 20 U/L (13-56); Albumin, Serum 4.1 g/dL (3.2-5.0); Alkaline Phosphatase 202 U/L (45-117); Anion Gap 20 (5-15); BUN 144 mg/dL (7-18); BUN/Creat Ratio 14.4 RATIO (10-20); Calcium,Total 10.5 mg/dL (8.5-10.1); Chloride 95 mmol/L (98-107); EST Glomerular Filtration Rate 4 mL/min (>60); Est Glom Filt Rate - Afr Amer 5 mL/min (>60); Estimated Creatinine Clearance 5.02 ml/min; Globulin 4.7 g/dL (2.2-4.2); Glucose 116 mg/dL (74-106); Lipase 328 U/L (13-75); Potassium 7.2 mmol/L (3.5-5.1); Protein, Total 8.8 g/dL (6.4-8.2); Sodium Level 128 mmol/L (136-145)
[2023-05-29 16:18] LABS: Lactic Acid 0.9 mmol/L (0.4-1.9)
--- NOTE | 2023-05-29 16:19 | CT_ITS ---
INDICATION: pain post op EXAMINATION: CT Abdomen And Pelvis W/O Contrast Injection TECHNIQUE: Helically acquired images were obtained of the abdomen and pelvis after IV contrast. A radiation dose optimization technique was used for this scan. IV Contrast dosage and agent: None Oral contrast: None. COMPARISON: 01/16/2017 FINDINGS: Visualized lung bases: Bibasilar consolidations versus atelectasis. Liver: Unremarkable Gallbladder: Unremarkable Spleen: Unremarkable Pancreas: Unremarkable Adrenal Glands: Unremarkable Kidneys: Unremarkable Vasculature: Unremarkable GI Tract: Postsurgical changes status post partial bowel resection with ileostomy in place. A few proximal loops of small bowel demonstrate mild circumferential wall thickening with surrounding mesenteric fat stranding. Lymphadenopathy: None Peritoneum: No ascites. Bladder: Mild circumferential wall thickening with subtle surrounding inflammatory changes. Reproductive organs: Unremarkable Bones/Soft tissues: There are diffuse degenerative changes of the spine. CT/Abdomen/Pelvis without Cont IMPRESSION: Findings suspicious for cystitis. Correlate with urinalysis. Findings suspicious for enteritis. Bibasilar lung consolidations versus atelectasis. Consider chest CT for further evaluation. Postsurgical changes status post partial bowel resection with ileostomy in place. Electronically Signed: Carson Pruett MD at 17:02 EDT ,
--- NOTE | 2023-05-29 17:22 | HP.PCM_ITS ---
HPI - General General Date of Admission: 05/29/23 Date of Service: 05/29/23 Chief Complaint: hypotension HPI Narrative SANTI NAM, is a 73 F with a PMH as outlined who presents via the ED on 05/29/2023 with a complaint of hypotension. She has a history of colon cancer and had surgery with ileostomy placed ~ 3 weeks ago. She has been feeling weak and tired with associated lightheadedness. She has been unsteady on her feet. She has not been eating and drinking well. She denied any fever, chills, cough, chest pain, palpitations, dizziness, nausea, vomiting or any other symptoms. Review of systems is otherwise negative. Her home nurse went to see her and she was found to be hypotensive, so she was asked to come to the ED.She says she has been having at least 1.2L of output from the ileostomy, and has been vomiting also. She has however not been eating or drinking well. She hasnt had chemotherapy for at least one month due to her having surgery. Vitals in the ED were BP of 11/50, NM of 79, RR of 16 and she has been saturating at 99% on room air. CBC showed hb of 11.2, wbc of 14.5 and platelets of 613. Chemistry showed sodiium of 128, potassium of 7.2, bicarb of 13 and Cr of 10. Anion gap is 20. Calcium is 10.5. Lipase was 328. CT abdomen pelvis showed evidence of cystitis and enteritis and bibasilar lung consolidations vs atelectasis, with evidence of post surgical changes s/p partial bowel resection with ileostomy. She is being admitted to the ICu to be managed for MAJO with hyperkalemia and anion gap metabolic acidosis. [facility] Medical History Acid reflux Adenocarcinoma of cecum Encounter for adjustment or management of vascular access device Peritoneal metastases s/p port placement Home Medications omeprazole 20 mg capsule,delayed release 20 mg PO DAILY ACID REFLUX 01/12/17 [History Last Taken 12/06/18 07:30] fexofenadine 180 mg tablet 180 mg PO DAILY PRN ALLERGIES 01/15/17 [History Last Taken Unknown] amlodipine 5 mg tablet 5 mg PO DAILY BLOOD PRESSURE 05/29/23 [History Last Taken 05/28/23] lisinopril 30 mg tablet 30 mg PO DAILY BLOOD PRESSURE 05/29/23 [History Last Taken 05/28/23] Allergy/AdvReac Type Severity Reaction Status Date / Time No Known Allergies Allergy Verified 05/29/23 15:31 Family History Mother Hypertension Father Melanoma Brother Melanoma Aunt Breast cancer Surgical History History of bowel resection History of Hx of ileostomy S/P laparoscopic colectomy s/p port placement (~12/06/18) Social History Smoking Status: Former smoker alcohol intake: current alcohol intake frequency: holidays/special occasions only substance use type: does not use caffeine: Yes what type of physical activity do you participate in: walking and weight training frequency: daily seatbelt use: always do you feel safe at home: Yes additional social history: - [employer]-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[facility] Constitutional Constitutional: Reports anorexia, fatigue, malaise and weakness; Denies chills or fever(s) Eyes Eyes: Denies change in vision ENT HEENT: Denies dysphagia Cardiovascular Cardiovascular: Denies chest pain, edema, orthopnea, palpitations or syncope Respiratory/Chest Respiratory/Chest: Denies cough, shortness of breath at rest or shortness of breath with exertion Gastrointestinal Gastrointestinal: Denies abdominal pain, constipation, diarrhea, nausea or vomiting Genitourinary Genitourinary: Denies dysuria Musculoskeletal Musculoskeletal: Denies back pain, extremity pain or muscle weakness Neurologic Neurologic: Denies confusion, dizziness or headache(s) Psychiatric Psychiatric: Denies anxiety Hematologic/Lymphatic Hematologic/Lymphatic: Denies anemia Vital Signs Vital Signs Vital Signs: 05/29/23 15:28 05/29/23 16:53 05/29/23 16:54 Temperature 97.7 F L Temperature Source Temporal Pulse Rate 82 79 Respiratory Rate 16 16 Respiratory Pattern Normal Blood Pressure 104/48 L 111/50 L Blood Pressure Mean 66 70 Pulse Ox 100 99 Oxygen Delivery Method Room Air Room Air Weight Weight: 166 lb 0.129 oz Body Mass Index (BMI) 25.9 Physical Exam Const alert, oriented x3 and no apparent distress Constitutional Narrative: frail General Appearance: cooperative HEENT normocephalic and head/scalp atraumatic Mouth: dry mucous membranes Eyes PERRL and EOMs intact bilaterally Neck no lymphadenopathy and supple Lymph Lymphatic: no lymphadenopathy noted and no lymphedema noted Resp Resp Narrative: mildly diminiished breath sounds bibasally, no wheezes or crackles. on room air. Cardio regular rate, regular rhythm, S1 normal heart sound, S2 normal heart sound and no murmurs GI normal to inspection, nondistended, normoactive bowel sounds, soft to palpation and non-tender GI Narrative: ileostomy bag in place Extremity normal capillary refill and no clubbing, cyanosis or edema Skin General Skin Exam: no breakdown Neuro CN's II-XII intact bilaterally, no focal motor deficits and no sensory deficits noted Coordination / Balance: [id number] test normal Motor Exam: strength 5/5 throughout Psych thought process normal, cooperative and affect normal Results Lab / Micro Data 05/30/23 09:20 05/30/23 09:20 Labs: Laboratory Results - last 24 hr 05/29/23 15:25: WBC 14.5 H, RBC 4.29, Hgb 11.2 L, Hct 36.3 L, MCV 84.6, MCH 26.1 L, MCHC 30.9 L, RDW Std Deviation 53.7 H, RDW Coeff of Ismael 17.5 H, Plt Count 613 H, MPV 9.9, Immature Gran % (Auto) 0.600, Neut % (Auto) 84.8 H, Lymph % (Auto) 6.0 L, [place] % (Auto) 8.3, Eos % (Auto) 0.1, Baso % (Auto) 0.2, Absolute Neuts (auto) 12.3 H, Absolute Lymphs (auto) 0.87, Nucleated RBC % 0, PT 14.3, INR 1.1, Sodium 128 L, Potassium 7.2 H*, Chloride 95 L, Carbon Dioxide 13.0 L, Anion Gap 20 H, BUN 144 H*, Creatinine 10.00 H*, Estim Creat Clear Calc 5.02, Est GFR (MDRD) Af Amer 5 L, Est GFR (MDRD) Non-Af 4 L, BUN/Creatinine Ratio 14.4, Glucose 116 H, Calcium 10.5 H, Total Bilirubin 0.40, AST 17, ALT 20, Alkaline Phosphatase 202 H, Total Protein 8.8 H, Albumin 4.1, Globulin 4.7 H, Albumin/Globulin Ratio 0.9, Lipase 328 H 05/29/23 15:36: Lactic Acid 0.9 Radiology Impression Chest X-Ray 05/29/23 15:50 IMPRESSION: Streaky opacities in the right lung base could represent atelectasis versus infection. Electronically Signed: Carson Pruett MD at 16:27 EDT , Abdomen/Pelvis CT 05/29/23 16:19 IMPRESSION: Findings suspicious for cystitis. Correlate with urinalysis. Findings suspicious for enteritis. Bibasilar lung consolidations versus atelectasis. Consider chest CT for further evaluation. Postsurgical changes status post partial bowel resection with ileostomy in place. Electronically Signed: Carson Pruett MD at 17:02 EDT , Assessment & Plan Assessment/Plan (1) MAJO (acute kidney injury): (2) Metabolic acidosis: PLAN: Plan #Acute kidney injury with metabolic acidosis and hyperkalemia * admit to ICU * Cr is 10, with last known Cr being 0.86, from 2017 * BUN is 144 and potassium is 7.2 (no hemolysis) * sodium is 128. * consult nephrology urgently; ED doctor spoke to nephrology and Dr Tafoya requested for initiation of a bicarb drip * insert Dennis catheter * CT abdomen and pelvis showed no evidence of urinary outlet obstruction * hydrate with IVF NS @ 125cc/hr * give potassium depleting cocktail * consult critical care * didnt recently have chemotherapy so tumor lysis syndrome is lower on the list of differentials. Will check uric acid and and phosphate levels out of an abundance of precaution * #Anion gap metabolic acidosis * start bicarb drip per nephrology * bicarb is 13 and anion gap is 20. * consult nephrology * * #Hyperkalemia: as above. EKG didnt show any acute ST changes. #Hyponatremia: * sodium is 128. Likely due to dehydration. Should improve with hydration. if it doesnt, will do further workup for hyponatremia #Leucocytosis * wbc is 14.5 * denies any cough or shortness of breath * CXR showed patchy opacities in the right lung base which could represent atelectasis vs infection * CT abdomen showed bibasilar consolidations vs atelectasis. * Says she has no cough or shortness of breath no fever, the WBC could be reactive and I am leaning more towards possible atelectasis for the chest imaging findings. * Will monitor for now and if WBC trends upwards or she develops a fever, chills or shortness of breath, will have a low threshold for initiating antibiotics. 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 * Patient counseled extensively about different types of CODE STATUS including full code, DNR CCA and DNR CCA. Patient elects to be full code. Her healthcare power of procurement specialist is her daughter Jocelynn. * Total [id number] time 16 minutes. * * Total critical care time spent on evaluation and management of patient, reviewing chart and specialist notes, discussing plan with patient, discussion with nursing and ancillary staff as well as documentation: 85 mins Charges/Coding Visit Charges Inpatient E&M: 96246 Init Hosp L3 Procedures Hospitalists Procedures: 49415 Critial Care 1st Hr (advanced care plan 30 mins: [id number])
[2023-05-29] MEDS: Ceftriaxone 1 GM/50 ML BAG IV (18:02)
[2023-05-29 18:06] LABS: Bacteria 0 SEEN /hpf (None Seen); Mucous, Urine 0 SEEN /hpf (<or=2+); Red Blood Cells-Urine 0 SEEN /hpf (0-5); Squamous Epithelial Cells - UA 0 SEEN /hpf (5-10)
[2023-05-29 18:29] LABS: Uric Acid 15.8 mg/dL (2.6-6.0)
[2023-05-29 18:32] LABS: Color, Urine Yellow (Yellow); Glucose, Dipstick Normal (Normal); Ketone-Dipstick Negative (Negative); Leukocyte Esterase-Dipstick 500 /ul (Negative); Nitrite-Dipstick Negative (Negative); Occult Blood-Urine 150 /ul (Negative); Protein-Dipstick 500 mg/dl (Negative); Specific Gravity, Urine 1.015 (1.002-1.030); Urine Bilirubin Dipstick Negative (Negative); Urine Clarity Turbid (Clear); Urine Urobilinogen Normal (Normal)
--- NOTE | 2023-05-29 19:16 | ED.RN ---
1914: Report called to Yumiko BANEGAS on ICU.
[2023-05-29 19:21] LABS: White Blood Cells >100 SEEN /hpf (0-5)
[2023-05-29] MEDS: Ondansetron 4 MG/2 ML Vial IV (19:52)
[2023-05-29] MEDS: Sodium Polystyrene Sulfonate 15 GM/60 ML UDC 30 GM PO (19:57)
[2023-05-29] MEDS: 0.9% Normal Saline 1,000 ML 125 ML IV (20:00)
[2023-05-29] MEDS: Dextrose 50%-Water 25 GM/50 ML DISP.SYRIN IV (20:00)
[2023-05-29] MEDS: Insulin Lispro 10 UNIT in Syringe 0 ML 6 UNIT IV (20:20)
[2023-05-29] MEDS: Calcium Gluconate IV 3 GM in Syringe 1 EACH IV (20:21)
[2023-05-29] MEDS: Albuterol 2.5 MG/3 ML VIAL.NEB. 10 MG INHALATION (20:37)
[2023-05-29 21:09] LABS: Allen Test Positive; Base Excess -15 mmol/L (-2 to +2); Bicarbonate 11.3 mmol/L (22-26); Blood Gas Specimen Type ART; O2 Delivery Device Room Air; PO2 113 mmHG (75-100); SITE R Radial; SO2 98 % (95-99); Total Carbon Dioxide 12 mmol/L
[2023-05-29] MEDS: Heparin Injection (Vial) 5,000 UNIT/ML VIAL 5000 UNIT SC (21:50)
[2023-05-29 22:33] LABS: Anion Gap 18 (5-15); BUN 143 mg/dL (7-18); BUN/Creat Ratio 15.6 RATIO (10-20); Calcium,Total 10.9 mg/dL (8.5-10.1); Chloride 99 mmol/L (98-107); Creatinine, Serum 9.16 mg/dL (0.55-1.02); EST Glomerular Filtration Rate 5 mL/min (>60); Est Glom Filt Rate - Afr Amer 6 mL/min (>60); Estimated Creatinine Clearance 5.48 ml/min; Glucose 188 mg/dL (74-106); Potassium 5.6 mmol/L (3.5-5.1); Sodium Level 131 mmol/L (136-145)
[2023-05-30] VITALS (53 sets, daily range): BP systolic 69–143; BP diastolic 47–77; PULSE 83–112; RESP 14–24; TEMP 36.8–37.6; O2SAT 96–100; BMI 25.6
[2023-05-30] MEDS: 0.9% Normal Saline 1,000 ML 999 ML IV ×2 (00:31→02:36)
[2023-05-30] MEDS: Calcium Gluconate 1 GM/10 ML Vial 0.5 GM IVP (01:29)
[2023-05-30] MEDS: Dextrose 50%-Water 25 GM/50 ML DISP.SYRIN IV (01:31)
[2023-05-30] MEDS: Insulin Lispro 10 UNIT in Syringe 0 ML 6 UNIT IV (01:32)
[2023-05-30] MEDS: 0.9% Saline Lock 10 ML Syringe IV ×4 (01:40→06:13)
[2023-05-30] MEDS: Albuterol 2.5 MG/3 ML VIAL.NEB. 10 MG INHALATION (02:06)
[2023-05-30 03:33] LABS: Absolute Lymphocyte Count 0.84 X10^3/uL (0.83-4.51); Absolute Neutrophil Count 6.1 X10^3/uL (2.0-7.7); Basophil# 0.01 X10^3/uL; Basophil% 0.1 % (0-1); Eosinophil# 0.01 X10^3/uL; Eosinophils% 0.1 % (0-5); Hematocrit 24.6 % (37-47); Hemoglobin 7.8 g/dL (12.0-15.0); Lymphocyte # 0.84 X10^3/ul (0.83-4.51); Lymphocyte % 10.2 % (19-41); Mean Corp Hgb Conc 31.7 g/dL (32-36); Mean Corpuscular Volume 85.1 fL (81-99); Mean Platelet Vol. 9.7 fl (6.2-12.0); Monocyte# 1.23 X10^3/uL; NRBC Flagged by Analyzer 0 % (0-5); Neutrophil # 6.05 X10^3/uL (2.7-7.7); Neutrophil % 73.7 % (47-70); Platelet Count 321 K/mm3 (150-450); RBC Distribution Width CV 17.3 % (11.6-14.6); RBC Distribution Width SD 54.4 fl (35.1-43.9); Red Blood Count 2.89 M/mm3 (4.2-5.4); White Blood Count 8.2 K/mm3 (4.4-11.0)
--- NOTE | 2023-05-30 04:06 | PCM.HOSP.N ---
Hospitalist Note Patient with ongoing issues with hypotension despite IVFs. When completes she has recurrent hypotension. Normally on HTN regimen per RN report. Currently onset mild crackles/starting to appear overloaded. Obtained repeat BMP w/ K improved but notable MAJO. Suspect likely will need HD. Given current mildly overloaded appearance with aggressive IVFs already administered, no marked UOP will start NEP and continue to closely monitor. If needs HD may be difficult to be initiated given her BP.
[2023-05-30 04:23] LABS: Anion Gap 17 (5-15); BUN 128 mg/dL (7-18); BUN/Creat Ratio 15.8 RATIO (10-20); Calcium,Total 9.1 mg/dL (8.5-10.1); Chloride 106 mmol/L (98-107); Creatinine, Serum 8.09 mg/dL (0.55-1.02); EST Glomerular Filtration Rate 5 mL/min (>60); Est Glom Filt Rate - Afr Amer 6 mL/min (>60); Glucose 192 mg/dL (74-106); Potassium 4.6 mmol/L (3.5-5.1); Sodium Level 138 mmol/L (136-145)
[2023-05-30] MEDS: Loperamide 2 MG Capsule 4 MG PO (04:31)
[2023-05-30] MEDS: Heparin Injection (Vial) 5,000 UNIT/ML VIAL 5000 UNIT SC ×3 (06:12→23:40)
--- NOTE | 2023-05-30 06:16 | CON.PCM.CC_ITS ---
Assessment & Plan Assessment/Plan (1) MAJO (acute kidney injury): (2) Metabolic acidosis: PLAN: Plan RECOMMENDATIONS: 1. Start empiric broad-spectrum antimicrobials. 2. Check C. difficile PCR and enteric panel. 3. Continue Levophed to maintain mean arterial pressure at or above 65 mmHg. 4. Send type and screen. Continue to monitor H&H. Transfuse if hemoglobin drops below 7 g/dL. 5. Continue sodium bicarbonate infusion. Await nephrology consultation. 6. Continue appropriate DVT and GI prophylaxis. IMPRESSIONS: 1. Multifactorial shock The patient presented to the hospital with generalized weakness and dizziness in the setting of decreased p.o. intake and hypotension. Her presenting is likely multifactorial with intravascular volume depletion and possible sepsis contributing. The patient did develop fluid refractory hypotension, which required the initiation of vasopressor support. Potential sources of infection include pneumonia, cystitis and possible C. difficile colitis. Cultures are pending. We will plan to initiate appropriate antimicrobials at this time, pending infectious work-up. Continue Levophed to maintain a mean arterial pressure at or above 65 mmHg. 2. Acute kidney injury Most likely prerenal in etiology with evolution to ischemic ATN in the setting of #1. Urine output is minimal. The patient has been volume resuscitated and remains on Levophed. Nephrology has been consulted to evaluate the patient. Plan to continue to monitor urine output for now and await nephrology recommendations regarding the need for dialysis. 3. Anemia The patient was quite hemoconcentrated upon arrival to the hospital. With volume resuscitation her hemoglobin has dropped to 7.8 g/dL. Recommend sending type and screen and continuing to monitor H&H daily. Plan to transfuse if hemoglobin drops below 7 g/dL. Continue PPI therapy. 4. History of colon CA status post recent surgical intervention/hyp ertension/GERD Complicates care, management, recovery and prognosis. Continue to hold home antihypertensives. TIME: 38 minutes of critical care time, independent of procedures, was spent addressing the patient's multifactorial shock, acute kidney injury, anemia, review of all data and collaboration with the care team. HPI Consult Data Date of Consult: 05/30/23 HPI Narrative Reason for Consultation: Acute kidney injury HPI Narrative: The patient is a 73-year-old female, with a history as outlined below, who presented to the emergency department on May 29 with generalized weakness and dizziness. The patient has a history of colon CA and recently underwent surgery with ileostomy approximately 3 weeks ago. The patient also has a medical history significant for hypertension and GERD. The patient did report decreased p.o. intake in the days leading up to her hospitalization along with increased output from her ostomy. On presentation to the emergency department, the patient was noted to be afebrile with a presenting blood pressure of 104/48 mmHg. She was maintaining appropriate oxygen saturations on room air. Initial laboratory evaluation revealed a white blood cell count of 14,000. Hemoglobin was noted to be 11.2 g/dL. Arterial blood gas obtained on room air demonstrated a pH of 7.3 with a PCO2 of 23 and PO2 of 113. Chemistry profile was notable for a sodium of 128, potassium of 7.2, chloride of 95, bicarbonate of 13, anion gap of 20, BUN of 144 and creatinine of 10.0. Lactate was normal at 0.9. Lipase was elevated at 328. Urine analysis was positive for leukocyte esterase but no urine bacteria. Chest x-ray demonstrated streaky atelectasis in the right lung base. CT abdomen/pelvis demonstrated findings suspicious for cystitis and enteritis. Bibasilar lung consolidations were also noted. The patient received supplemental IV fluid hydration. She was initiated on a sodium bicarbonate infusion. This morning, the patient sodium has improved to 138 with a bicarbonate of 15, BUN of 128 and creatinine of 8.09. [facility] Medical History Acid reflux Adenocarcinoma of cecum Encounter for adjustment or management of vascular access device Peritoneal metastases s/p port placement Home Medications omeprazole 20 mg capsule,delayed release 20 mg PO DAILY ACID REFLUX 01/12/17 [History Last Taken 12/06/18 07:30] fexofenadine 180 mg tablet 180 mg PO DAILY PRN ALLERGIES 01/15/17 [History Last Taken Unknown] amlodipine 5 mg tablet 5 mg PO DAILY BLOOD PRESSURE 05/29/23 [History Last Taken 05/28/23] lisinopril 30 mg tablet 30 mg PO DAILY BLOOD PRESSURE 05/29/23 [History Last Taken 05/28/23] Allergy/AdvReac Type Severity Reaction Status Date / Time No Known Allergies Allergy Verified 05/29/23 15:31 Family History Mother Hypertension Father Melanoma Brother Melanoma Aunt Breast cancer Surgical History History of bowel resection History of Hx of ileostomy S/P laparoscopic colectomy s/p port placement (~12/06/18) Social History Smoking Status: Former smoker alcohol intake: current alcohol intake frequency: holidays/special occasions only substance use type: does not use caffeine: Yes what type of physical activity do you participate in: walking and weight training frequency: daily seatbelt use: always do you feel safe at home: Yes additional social history: - 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 Physical Exam Const alert and no apparent distress General Appearance: cooperative HEENT normocephalic and head/scalp atraumatic Eyes PERRL, EOMs intact bilaterally and conjunctivae normal Neck supple General: trachea midline Chest inspection of chest normal Resp normal respiratory effort Auscultation: diminished lung sounds; Negative for rales, rhonchi or wheezes Cardio regular rate and regular rhythm GI soft to palpation and non-tender Inspection: ostomy present Extremity no clubbing, cyanosis or edema Skin no rashes or lesions noted Neuro CN's II-XII intact bilaterally and no focal motor deficits Psych cooperative and affect normal Lab / Micro Data 05/30/23 09:20 05/30/23 09:20 Labs: Laboratory Results - last 24 hr 05/29/23 15:25: WBC 14.5 H, RBC 4.29, Hgb 11.2 L, Hct 36.3 L, MCV 84.6, MCH 26.1 L, MCHC 30.9 L, RDW Std Deviation 53.7 H, RDW Coeff of Ismael 17.5 H, Plt Count 613 H, MPV 9.9, Immature Gran % (Auto) 0.600, Neut % (Auto) 84.8 H, Lymph % (Auto) 6.0 L, [place] % (Auto) 8.3, Eos % (Auto) 0.1, Baso % (Auto) 0.2, Absolute Neuts (auto) 12.3 H, Absolute Lymphs (auto) 0.87, Nucleated RBC % 0, PT 14.3, INR 1.1, Sodium 128 L, Potassium 7.2 H*, Chloride 95 L, Carbon Dioxide 13.0 L, Anion Gap 20 H, BUN 144 H*, Creatinine 10.00 H*, Estim Creat Clear Calc 5.02, Est GFR (MDRD) Af Amer 5 L, Est GFR (MDRD) Non-Af 4 L, BUN/Creatinine Ratio 14.4, Glucose 116 H, Uric Acid 15.8 H, Calcium 10.5 H, Total Bilirubin 0.40, AST 17, ALT 20, Alkaline Phosphatase 202 H, Total Protein 8.8 H, Albumin 4.1, Globulin 4 .7 H, Albumin/Globulin Ratio 0.9, Lipase 328 H 05/29/23 15:36: Lactic Acid 0.9 05/29/23 17:45: Urine Color Yellow, Urine Clarity Turbid, Urine pH 7.0, Ur Specific [place] 1.015, Urine Protein 500 H, Urine Glucose (UA) Normal, Urine Ketones Negative, Urine Occult Blood 150 H, Urine Nitrite Negative, Urine Bilirubin Negative, Urine Urobilinogen Normal, Ur Leukocyte Esterase 500 H, Urine RBC 0 SEEN, Urine WBC >100 SEEN, Ur Squamous Epith Cells 0 SEEN, Urine Bacteria 0 SEEN, Urine Mucus 0 SEEN 05/29/23 21:48: Sodium 131 L, Potassium 5.6 H, Chloride 99, Carbon Dioxide 14.0 L, Anion Gap 18 H, BUN 143 H*, Creatinine 9.16 H*, Estim Creat Clear Calc 5.48, Est GFR (MDRD) Af Amer 6 L, Est GFR (MDRD) Non-Af 5 L, BUN/Creatinine Ratio 15.6, Glucose 188 H, Calcium 10.9 H 05/30/23 03:25: WBC 8.2, RBC 2.89 L, Hgb 7.8 L, Hct 24.6 L, MCV 85.1, MCH 27.0, MCHC 31.7 L, RDW Std Deviation 54.4 H, RDW Coeff of Ismael 17.3 H, Plt Count 321, MPV 9.7, Immature Gran % (Auto) 0.900, Neut % (Auto) 73.7 H, Lymph % (Auto) 10.2 L, [place] % (Auto) 15.0 H, Eos % (Auto) 0.1, Baso % (Auto) 0.1, Absolute Neuts (auto) 6.1, Absolute Lymphs (auto) 0.84, Nucleated RBC % 0, Sodium 138, Potassium 4.6, Chloride 106, Carbon Dioxide 15.0 L, Anion Gap 17 H, BUN 128 H*, Creatinine 8.09 H*, Estim Creat Clear Calc 6.20, Est GFR (MDRD) Af Amer 6 L, Est GFR (MDRD) Non-Af 5 L, BUN/Creatinine Ratio 15.8, Glucose 192 H, Calcium 9.1 05/30/23 04:40: Procalcitonin 0.20 H Micro: Microbiology 05/30/23 04:30 Stool Stool Occult Blood (JULIET) - Final ABG Data ABG results: ABG 05/29/23 21:05 Specimen Type ART Sample Site R Radial pH 7.30 L Bicarbonate Actual 11.3 L Total CO2 12 Base Excess -15 L O2 Saturation 98 ABG pCO2 23.0 L ABG pO2 113 H Shantanu Test Positive O2 Delivery Device Room Air Radiology Impression Chest X-Ray 05/29/23 15:50 IMPRESSION: Streaky opacities in the right lung base could represent atelectasis versus infection. Electronically Signed: Carson Pruett MD at 16:27 EDT , Abdomen/Pelvis CT 05/29/23 16:19 IMPRESSION: Findings suspicious for cystitis. Correlate with urinalysis. Findings suspicious for enteritis. Bibasilar lung consolidations versus atelectasis. Consider chest CT for further evaluation. Postsurgical changes status post partial bowel resection with ileostomy in place. Electronically Signed: Carson Pruett MD at 17:02 EDT , Charges/Coding Procedures Hospitalists Procedures: [id number] Critial Care 1st Hr
--- NOTE | 2023-05-30 07:05 | NURSING ---
Addendum entered by Bel Boswell 05/30/23 07:10: Correction: 250 mL Original Note: Upon further investigation, patient wilson tubing was found to be kinked. Preventing urine from flowing. After straightening catheter, patient had about 400 mL of output.
--- NOTE | 2023-05-30 07:14 | PN.HOSP_ITS ---
Objective Data Objective Data Vital Signs: Vital Signs Temp Pulse Resp BP Pulse Ox O2 Del Method 98.6 F 85 19 H 125/58 H 98 Room Air 05/30/23 07:00 05/30/23 07:00 05/30/23 07:00 05/30/23 07:00 05/30/23 07:00 05/30/23 07:00 Oxygen Delivery Method Room Air Weight: 163 lb 9.328 oz Body Mass Index (BMI) 25.6 Intake & Output: Intake and Output for Last 24 Hours 05/28/23 05/29/23 05/30/23 23:59 23:59 23:59 Intake Total 1080 / 1080 4211.73 / 4211.73 Output Total 415 / 430 1715 / 1715 Balance 665 / 650 2496.73 / 2496.73 Lab / Micro Data 05/30/23 09:20 05/30/23 09:20 Labs: Laboratory Results - last 24 hr 05/29/23 15:25: WBC 14.5 H, RBC 4.29, Hgb 11.2 L, Hct 36.3 L, MCV 84.6, MCH 26.1 L, MCHC 30.9 L, RDW Std Deviation 53.7 H, RDW Coeff of Ismael 17.5 H, Plt Count 613 H, MPV 9.9, Immature Gran % (Auto) 0.600, Neut % (Auto) 84.8 H, Lymph % (Auto) 6.0 L, [place] % (Auto) 8.3, Eos % (Auto) 0.1, Baso % (Auto) 0.2, Absolute Neuts (auto) 12.3 H, Absolute Lymphs (auto) 0.87, Nucleated RBC % 0, PT 14.3, INR 1.1, Sodium 128 L, Potassium 7.2 H*, Chloride 95 L, Carbon Dioxide 13.0 L, Anion Gap 20 H, BUN 144 H*, Creatinine 10.00 H*, Estim Creat Clear Calc 5.02, Est GFR (MDRD) Af Amer 5 L, Est GFR (MDRD) Non-Af 4 L, BUN/Creatinine Ratio 14.4, Glucose 116 H, Uric Acid 15.8 H, Calcium 10.5 H, Total Bilirubin 0.40, AST 17, ALT 20, Alkaline Phosphatase 202 H, Total Protein 8.8 H, Albumin 4.1, Globulin 4.7 H, Albumin/Globulin Ratio 0.9, Lipase 328 H 05/29/23 15:36: Lactic Acid 0.9 05/29/23 17:45: Urine Color Yellow, Urine Clarity Turbid, Urine pH 7.0, Ur Specific [employer] 1.015, Urine Protein 500 H, Urine Glucose (UA) Normal, Urine Ketones Negative, Urine Occult Blood 150 H, Urine Nitrite Negative, Urine Bilirubin Negative, Urine Urobilinogen Normal, Ur Leukocyte Esterase 500 H, Urine RBC 0 SEEN, Urine WBC >100 SEEN, Ur Squamous Epith Cells 0 SEEN, Urine Bacteria 0 SEEN, Urine Mucus 0 SEEN 05/29/23 21:48: Sodium 131 L, Potassium 5.6 H, Chloride 99, Carbon Dioxide 14.0 L, Anion Gap 18 H, BUN 143 H*, Creatinine 9.16 H*, Estim Creat Clear Calc 5.48, Est GFR (MDRD) Af Amer 6 L, Est GFR (MDRD) Non-Af 5 L, BUN/Creatinine Ratio 15.6, Glucose 188 H, Calcium 10.9 H 05/30/23 03:25: WBC 8.2, RBC 2.89 L, Hgb 7.8 L, Hct 24.6 L, MCV 85.1, MCH 27.0, MCHC 31.7 L, RDW Std Deviation 54.4 H, RDW Coeff of Ismael 17.3 H, Plt Count 321, MPV 9.7, Immature Gran % (Auto) 0.900, Neut % (Auto) 73.7 H, Lymph % (Auto) 10.2 L, [place] % (Auto) 15.0 H, Eos % (Auto) 0.1, Baso % (Auto) 0.1, Absolute Neuts (auto) 6.1, Absolute Lymphs (auto) 0.84, Nucleated RBC % 0, Sodium 138, Potassium 4.6, Chloride 106, Carbon Dioxide 15.0 L, Anion Gap 17 H, BUN 128 H*, Creatinine 8.09 H*, Estim Creat Clear Calc 6.20, Est GFR (MDRD) Af Amer 6 L, Est GFR (MDRD) Non-Af 5 L, BUN/Creatinine Ratio 15.8, Glucose 192 H, Calcium 9.1 05/30/23 04:40: Procalcitonin 0.20 H Micro: Microbiology 05/30/23 04:30 Stool Stool Occult Blood (JULIET) - Final ABG Data ABG results: ABG 05/29/23 21:05 Specimen Type ART Sample Site R Radial pH 7.30 L Bicarbonate Actual 11.3 L Total CO2 12 Base Excess -15 L O2 Saturation 98 ABG pCO2 23.0 L ABG pO2 113 H Shantanu Test Positive O2 Delivery Device Room Air Radiography Diagnostic Testing: Radiology Impression Chest X-Ray 05/29/23 15:50 IMPRESSION: Streaky opacities in the right lung base could represent atelectasis versus infection. Electronically Signed: Carson Pruett MD at 16:27 EDT , Abdomen/Pelvis CT 05/29/23 16:19 IMPRESSION: Findings suspicious for cystitis. Correlate with urinalysis. Findings suspicious for enteritis. Bibasilar lung consolidations versus atelectasis. Consider chest CT for further evaluation. Postsurgical changes status post partial bowel resection with ileostomy in place. Electronically Signed: Carson Pruett MD at 17:02 EDT , Assessment & Plan Assessment/Plan (1) MAJO (acute kidney injury): (2) Metabolic acidosis: PLAN: Plan 73-year-old female is being admitted through ED for generalized weakness, lightheadedness, hypotension, vomiting and increased ileostomy output at least 1.2 L daily. Patient had decreased urine output very concentrated before admission. Overnight patient continued to be low blood pressure/recurrent hypotension despite IV fluid patient started developing crackles therefore started on IV norepinephrine drip. #Acute kidney injury with metabolic acidosis and hyperkalemia with anion gap metabolic acidosis * Admitted to ICU. * Cr is 10, with last known Cr being 0.86, from 2017 * BUN is 144 and potassium is 7.2 (no hemolysis). Repeat potassium is 4.6. BUNs/creatinine 1.88/8.07 * sodium is 128. Martin sodium 138. * Design Inserter is consulted; ED doctor spoke to nephrology and Dr Tafoya. Patient on bicarb drip * Dennis catheter. Urine output 165 mL on 9/5 and 265 mL since midnight. * CT abdomen and pelvis showed no evidence of urinary outlet obstruction * didnt recently have chemotherapy so tumor lysis syndrome is lower on the list of differentials. * Repeat bicarb is 15. Anion gap 17. High anion gap metabolic acidosis. * EKG didnt show any acute ST changes. * #Hyponatremia: sodium is 128. Likely due to dehydration. Repeat sodium is 138 #Multifactorial shock: Patient presented with hypotension with decreased intake increased ileostomy output. Patient developed refractory hypotension therefore started on norepinephrine. Potential sources of infection include pneumonia cystitis possible C. difficile. Cultures are pending. * wbc is 14.5. Repeat labs shows WBC count 8.2 thousand. Hemoglobin 7.8. Neutrophils 73%., Lymphocyte 10%. Monocytosis 15%. * denies any cough or shortness of breath * CXR showed patchy opacities in the right lung base which could represent atelectasis vs infection * CT abdomen showed bibasilar consolidations vs atelectasis. * Says she has no cough or shortness of breath no fever, the WBC could be reactive. * Started on White antibiotic. 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 * hasnt had chemotherapy for ~ 4 weeks. Uric acid 15.8. Lactic acid normal. * s/p colectomy. * had surgery with ileostomy bag placement a few weeks ago * management as per oncology as an outpatient. * Stool output 250 mill 9/5, 1650 mL today. Stool for enteric bacteriology panel and C. difficile ordered. DVT prophylaxis: heparin Code status; full code. * Patient counseled extensively about different types of CODE STATUS including full code, DNR CCA and DNR CCA. Patient elects to be full code. Her healthcare power of civil litigation attorney is her daughter Jocelynn. Total time of the visit including total time spent in counseling or coordination of care, (more than 50% of the total time, spent in obtaining medical information from nurses and other ancillary care providers,explaining to the patient about labs, imaging, diagnosis and management of active complex medical conditions), discussion with consultants, review of labs and imaging is 40 minutes. Charges/Coding Visit Charges Inpatient E&M: 75092 Subs Hosp L3
[2023-05-30] MEDS: Pantoprazole Sodium 20 MG Tablet PO (08:12)
[2023-05-30] MEDS: amLODIPine 5 MG Tablet PO (08:12)
[2023-05-30 09:59] LABS: Absolute Lymphocyte Count 0.83 X10^3/uL (0.83-4.51); Absolute Neutrophil Count 9.4 X10^3/uL (2.0-7.7); Basophil# 0.03 X10^3/uL; Basophil% 0.3 % (0-1); Eosinophil# 0.04 X10^3/uL; Eosinophils% 0.3 % (0-5); Hematocrit 25.2 % (37-47); Hemoglobin 8.3 g/dL (12.0-15.0); Lymphocyte # 0.83 X10^3/ul (0.83-4.51); Lymphocyte % 7.1 % (19-41); Mean Corp Hgb Conc 32.9 g/dL (32-36); Mean Corpuscular Hgb 27.6 pg (27.0-32.0); Mean Corpuscular Volume 83.7 fL (81-99); Mean Platelet Vol. 9.9 fl (6.2-12.0); Monocyte# 1.35 X10^3/uL; Monocyte% 11.5 % (0-10); NRBC Flagged by Analyzer 0 % (0-5); Neutrophil # 9.42 X10^3/uL (2.7-7.7); Neutrophil % 80.3 % (47-70); Platelet Count 441 K/mm3 (150-450); RBC Distribution Width CV 17.5 % (11.6-14.6); RBC Distribution Width SD 53.6 fl (35.1-43.9); Red Blood Count 3.01 M/mm3 (4.2-5.4); White Blood Count 11.7 K/mm3 (4.4-11.0)
--- NOTE | 2023-05-30 10:15 | CASEMGMT ---
Addendum entered by Amanda Kline 05/30/23 13:48: Confirmation pt is active with [facility]care with SN services, they are able to accept pt back for care. Original Note: BASSAM DEL VALLE Assessment: Face to Face with pt for initial transition planning/care coordination assessment. BASSAM DEL VALLE introduced self and role at [facility], pt voices understanding and consents to assessment. Pt is A/O x4 and answers all questions appropriately at this time. Pt lying in bed in no distress. Care providers, pharmacy, and demographics verified/updated. Admitting Dx: MAJO, hyperkalemia PCP:Rafi Specialists:[facility], onc; [facility], colorectal OR Preferred Pharmacy: [facility] Insurance: [employer], [employer] Supp Prescription Benefit: yes LNOK: Jocelynn Agrawal dtr Living Arrangements: Pt lives alone in a single story home with 4 steps to enter. Pt reports she typically is I in ADL's but in the last week has needed help. Pt does her own meals, groceries and laundry. Pt denies concerns at home. Transportation: Pt drives self and denies concerns with transportation. DME/HHC/SNF: Pt has a FWW that she just started using a couple of days ago. Pt receives ostomy supplies from [facility] Homecare in which she is active with for SN. Pt states she could be independent with all aspects of the care of her ostomy but [facility] is assisting still. Pt denies SNF stays. Pt states no concerns with going home at time of dc. Pt would like to return home with [facility] Homecare. She is open to adding therapy if she needs it. DC mail handler assistant [facility] and they are willing to continue her care post dc. Pt denies need for a list of other options of [facility] agencies. Pt states no further concerns/needs. CM to follow. Advised pt to ask CM if any further question/concerns/needs arise, voices understanding. Pt Goal: Home with [facility] Plan: Home with [facility], follow to add therapy; pending course of hospitalization
[2023-05-30 10:19] LABS: Phosphorus 8.1 mg/dL (2.5-4.9)
[2023-05-30 10:25] LABS: Magnesium 2.1 mg/dL (1.6-2.6)
[2023-05-30 10:29] LABS: Anion Gap 16 (5-15); BUN 125 mg/dL (7-18); BUN/Creat Ratio 17.5 RATIO (10-20); Calcium,Total 9.1 mg/dL (8.5-10.1); Chloride 101 mmol/L (98-107); Creatinine, Serum 7.16 mg/dL (0.55-1.02); EST Glomerular Filtration Rate 6 mL/min (>60); Est Glom Filt Rate - Afr Amer 7 mL/min (>60); Estimated Creatinine Clearance 7.01 ml/min; Glucose 234 mg/dL (74-106); Sodium Level 134 mmol/L (136-145)
--- NOTE | 2023-05-30 10:31 | CASEMGMT ---
Discharge Planning Resumption referral sent to [facility] via [facility]. Kathleen Shin, Dicharge Planning Asst.
--- NOTE | 2023-05-30 11:47 | CON.PCM.RE_ITS ---
Assessment & Plan Assessment/Plan (1) MAJO (acute kidney injury): PLAN: Acute renal failure. Normal baseline creatinine. CT abdomen without any hydronephrosis. She had a CT cystogram with [facility] on the which did not show any urinary leak. Ileostomy output has been around 1200 cc a day. Poor appetite, poor oral intake. Likely volume depletion. Continue IV bicarbonate for now. Hyperkalemia. Potassium has improved. HPI Consult Data Date of Consult: 05/30/23 HPI Narrative Reason for Consultation: Renal failure HPI Narrative: SANTI NAM, is a 73 F who presents hospital with acute renal failure. Nephrology on consult for the same. Most of her recent care has been with [facility]. Review of records. She has known history of colon cancer which was initially diagnosed in 2017. Initially had hemicolectomy. 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 Recently had peritoneal metastasis resection along with Bilateral ureteral stents Exploratory laparotomy with extensive lysis of adhesions Resection of pelvic metastasis included vaginal cuff repair and partial bladder resection Colorectal anastomosis Terminal ileal resection with ileostomy Splenic flexure mobilization Bladder repair by urology Vaginal cuff resection by [facility]EL[facility]IST[facility] oncologist Omental pedicle graft She was discharged home on the . Says she has been feeling weak since then. Poor appetite. Urine output stopped completely over the weekend. Found to have acute renal failure, acidosis Somewhat better today [facility] Medical History Acid reflux Adenocarcinoma of cecum Encounter for adjustment or management of vascular access device Peritoneal metastases s/p port placement Home Medications omeprazole 20 mg capsule,delayed release 20 mg PO DAILY ACID REFLUX 01/12/17 [History Last Taken 12/06/18 07:30] fexofenadine 180 mg tablet 180 mg PO DAILY PRN ALLERGIES 01/15/17 [History Last Taken Unknown] amlodipine 5 mg tablet 5 mg PO DAILY BLOOD PRESSURE 05/29/23 [History Last Taken 05/28/23] lisinopril 30 mg tablet 30 mg PO DAILY BLOOD PRESSURE 05/29/23 [History Last Taken 05/28/23] Allergy/AdvReac Type Severity Reaction Status Date / Time No Known Allergies Allergy Verified 05/29/23 15:31 Family History Mother Hypertension Father Melanoma Brother Melanoma Aunt Breast cancer Surgical History History of bowel resection History of Hx of ileostomy S/P laparoscopic colectomy s/p port placement (~12/06/18) Social History Smoking Status: Former smoker alcohol intake: current alcohol intake frequency: holidays/special occasions only substance use type: does not use caffeine: Yes what type of physical activity do you participate in: walking and weight training frequency: daily seatbelt use: always do you feel safe at home: Yes additional social history: - [employer]-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 ROS ROS Narrative negative except above Physical Exam Narrative Alert awake oriented x 3 no obvious distress no pallor no icterus no JVD s1s2 no murmurs lungs clear abdomen soft no organomegaly no edema no cyanosis wilson + Lab / Micro Data 05/30/23 09:20 05/30/23 09:20 Labs: Laboratory Results - last 24 hr 05/29/23 15:25: WBC 14.5 H, RBC 4.29, Hgb 11.2 L, Hct 36.3 L, MCV 84.6, MCH 26.1 L, MCHC 30.9 L, RDW Std Deviation 53.7 H, RDW Coeff of Ismael 17.5 H, Plt Count 613 H, MPV 9.9, Immature Gran % (Auto) 0.600, Neut % (Auto) 84.8 H, Lymph % (Auto) 6.0 L, [place] % (Auto) 8.3, Eos % (Auto) 0.1, Baso % (Auto) 0.2, Absolute Neuts (auto) 12.3 H, Absolute Lymphs (auto) 0.87, Nucleated RBC % 0, PT 14.3, INR 1.1, Sodium 128 L, Potassium 7.2 H*, Chloride 95 L, Carbon Dioxide 13.0 L, Anion Gap 20 H, BUN 144 H*, Creatinine 10.00 H*, Estim Creat Clear Calc 5.02, Est GFR (MDRD) Af Amer 5 L, Est GFR (MDRD) Non-Af 4 L, BUN/Creatinine Ratio 14.4, Glucose 116 H, Uric Acid 15.8 H, Calcium 10.5 H, Total Bilirubin 0.40, AST 17, ALT 20, Alkaline Phosphatase 202 H, Total Protein 8.8 H, Albumin 4.1, Globulin 4.7 H, Albumin/Globulin Ratio 0.9, Lipase 328 H 05/29/23 15:36: Lactic Acid 0.9 05/29/23 17:45: Urine Color Yellow, Urine Clarity Turbid, Urine pH 7.0, Ur Specific [place] 1.015, Urine Protein 500 H, Urine Glucose (UA) Normal, Urine Ketones Negative, Urine Occult Blood 150 H, Urine Nitrite Negative, Urine Bilirubin Negative, Urine Urobilinogen Normal, Ur Leukocyte Esterase 500 H, Urine RBC 0 SEEN, Urine WBC >100 SEEN, Ur Squamous Epith Cells 0 SEEN, Urine Bacteria 0 SEEN, Urine Mucus 0 SEEN 05/29/23 21:48: Sodium 131 L, Potassium 5.6 H, Chloride 99, Carbon Dioxide 14.0 L, Anion Gap 18 H, BUN 143 H*, Creatinine 9.16 H*, Estim Creat Clear Calc 5.48, Est GFR (MDRD) Af Amer 6 L, Est GFR (MDRD) Non-Af 5 L, BUN/Creatinine Ratio 15.6, Glucose 188 H, Calcium 10.9 H 05/30/23 03:25: WBC 8.2, RBC 2.89 L, Hgb 7.8 L, Hct 24.6 L, MCV 85.1, MCH 27.0, MCHC 31.7 L, RDW Std Deviation 54.4 H, RDW Coeff of Ismael 17.3 H, Plt Count 321, MPV 9.7, Immature Gran % (Auto) 0.900, Neut % (Auto) 73.7 H, Lymph % (Auto) 10.2 L, [place] % (Auto) 15.0 H, Eos % (Auto) 0.1, Baso % (Auto) 0.1, Absolute Neuts (auto) 6.1, Absolute Lymphs (auto) 0.84, Nucleated RBC % 0, Sodium 138, Potassium 4.6, Chloride 106, Carbon Dioxide 15.0 L, Anion Gap 17 H, BUN 128 H*, Creatinine 8.09 H*, Estim Creat Clear Calc 6.20, Est GFR (MDRD) Af Amer 6 L, Est GFR (MDRD) Non-Af 5 L, BUN/Creatinine Ratio 15.8, Glucose 192 H, Calcium 9.1 05/30/23 04:40: Procalcitonin 0.20 H 05/30/23 09:20: WBC 11.7 H, RBC 3.01 L, Hgb 8.3 L, Hct 25.2 L, MCV 83.7, MCH 27.6, MCHC 32.9, RDW Std Deviation 53.6 H, RDW Coeff of Ismael 17.5 H, Plt Count 441, MPV 9.9, Immature Gran % (Auto) 0.500, Neut % (Auto) 80.3 H, Lymph % (Auto) 7.1 L, [place] % (Auto) 11.5 H, Eos % (Auto) 0.3, Baso % (Auto) 0.3, Absolute Neuts (auto) 9.4 H, Absolute Lymphs (auto) 0.83, Nucleated RBC % 0, Sodium 134 L, Potassium 5.0, Chloride 101, Carbon Dioxide 17.0 L, Anion Gap 16 H, BUN 125 H*, Creatinine 7.16 H, Estim Creat Clear Calc 7.01, Est GFR (MDRD) Af Amer 7 L, Est GFR (MDRD) Non-Af 6 L, BUN/Creatinine Ratio 17.5, Glucose 234 H, Calcium 9.1, Phosphorus 8.1 H, Magnesium 2.1, Blood Type B NEGATIVE, Antibody Screen NEGATIVE Micro: Microbiology 05/30/23 04:30 Stool Stool Occult Blood (JULIET) - Final ABG Data ABG results: ABG 05/29/23 21:05 Specimen Type ART Sample Site R Radial pH 7.30 L Bicarbonate Actual 11.3 L Total CO2 12 Base Excess -15 L O2 Saturation 98 ABG pCO2 23.0 L ABG pO2 113 H Shantanu Test Positive O2 Delivery Device Room Air Radiology Impression Chest X-Ray 05/29/23 15:50 IMPRESSION: Streaky opacities in the right lung base could represent atelectasis versus infection. Electronically Signed: Carson Pruett MD at 16:27 EDT , Abdomen/Pelvis CT 05/29/23 16:19 IMPRESSION: Findings suspicious for cystitis. Correlate with urinalysis. Findings suspicious for enteritis. Bibasilar lung consolidations versus atelectasis. Consider chest CT for further evaluation. Postsurgical changes status post partial bowel resection with ileostomy in place. Electronically Signed: Carson Pruett MD at 17:02 EDT ,
[2023-05-30 12:03] LABS: M R Staph aureus DNA By PCR Negative (Negative)
[2023-05-30 12:05] LABS: Probe Check PASS; Specimen Processing Control PASS
[2023-05-30 12:13] LABS: CPK Total, Creatine Kinase 34 U/L (26-192)
--- NOTE | 2023-05-30 12:50 | PCM.RX.CS ---
Consult Antibiotic Management Pharmacy has been consulted to manage selected antiobiotic: Vancomycin Type of Intervention Type of Consult: New start Suspected Infection Suspected Infection: Pneumonia Prior Doses of Antibiotics Prior Doses of Antibiotics Received/Current Regimen: Received 1750mg iv x 1 on 05.30.23. Labs Labs: Sodium 134 mmol/L (136-145) L 05/30/23 09:20 Potassium 5.0 mmol/L (3.5-5.1) 05/30/23 09:20 Chloride 101 mmol/L (98-107) 05/30/23 09:20 Carbon Dioxide 17.0 mmol/L (21.0-32.0) L 05/30/23 09:20 Anion Gap 16 (5-15) H 05/30/23 09:20 BUN 125 mg/dL (7-18) H* 05/30/23 09:20 Creatinine 7.16 mg/dL (0.55-1.02) H 05/30/23 09:20 Est GFR (MDRD) Af Amer 7 mL/min (>60) L 05/30/23 09:20 Est GFR (MDRD) Non-Af 6 mL/min (>60) L 05/30/23 09:20 BUN/Creatinine Ratio 17.5 RATIO (10-20) 05/30/23 09:20 Glucose 234 mg/dL (74-106) H 05/30/23 09:20 Microbiology Microbiology: Microbiology 05/30/23 04:30 Stool Stool Occult Blood (JULIET) - Final Dosing Weight Weight used for dosin.2 kg Estimated Creatinine Clearance Estimated Creatinine Clearance: 6 ml/min Goal Trough Goal Trough: 15-20 mcg/mL Pharmacy Plan for Drug Dosing Pharmacy Plan for Drug Dosing: Cr 8.09m with CrCl ~6ml/min. Given a 1x order of ~25mg/kg (1750mg) as 1x order. No further dosing to be done at this time due to renal function. Have ordered random level for AM of 06.01.23. Pharmacy Service will continue to monitor and adjust dosing as required. Follow-Up Labs Follow-Up Labs: Trough: Other (random level 06.01.23 in AM)
[2023-05-31] VITALS (19 sets, daily range): BP systolic 93–140; BP diastolic 50–71; PULSE 77–104; RESP 16–20; TEMP 36.6–37.2; O2SAT 94–100; BMI 26.6
[2023-05-31 05:14] LABS: Absolute Lymphocyte Count 0.66 X10^3/uL (0.83-4.51); Basophil# 0.03 X10^3/uL; Basophil% 0.5 % (0-1); Eosinophil# 0.33 X10^3/uL; Eosinophils% 5.6 % (0-5); Hematocrit 23.6 % (37-47); Hemoglobin 7.4 g/dL (12.0-15.0); Lymphocyte # 0.66 X10^3/ul (0.83-4.51); Lymphocyte % 11.2 % (19-41); Mean Corp Hgb Conc 31.4 g/dL (32-36); Mean Corpuscular Hgb 26.5 pg (27.0-32.0); Mean Corpuscular Volume 84.6 fL (81-99); Mean Platelet Vol. 9.1 fl (6.2-12.0); Monocyte# 0.82 X10^3/uL; Monocyte% 13.9 % (0-10); NRBC Flagged by Analyzer 0 % (0-5); Neutrophil # 4.02 X10^3/uL (2.7-7.7); Neutrophil % 68.5 % (47-70); Platelet Count 267 K/mm3 (150-450); RBC Distribution Width CV 17.2 % (11.6-14.6); RBC Distribution Width SD 53.8 fl (35.1-43.9); Red Blood Count 2.79 M/mm3 (4.2-5.4); White Blood Count 5.9 K/mm3 (4.4-11.0)
[2023-05-31] MEDS: Heparin Injection (Vial) 5,000 UNIT/ML VIAL 5000 UNIT SC ×3 (05:14→21:41)
[2023-05-31 05:34] LABS: ALB/GLOB Ratio 0.9 RATIO (0.9-2.4); AST(SGOT) 11 U/L (15-37); Alanine Aminotransfer ALT/SGPT 10 U/L (13-56); Albumin, Serum 2.6 g/dL (3.2-5.0); Alkaline Phosphatase 105 U/L (45-117); Anion Gap 6 (5-15); BUN 86 mg/dL (7-18); BUN/Creat Ratio 23.4 RATIO (10-20); Calcium,Total 8.4 mg/dL (8.5-10.1); Chloride 104 mmol/L (98-107); Creatinine, Serum 3.68 mg/dL (0.55-1.02); EST Glomerular Filtration Rate 13 mL/min (>60); Est Glom Filt Rate - Afr Amer 16 mL/min (>60); Estimated Creatinine Clearance 13.64 ml/min; Glucose 128 mg/dL (74-106); Magnesium 1.9 mg/dL (1.6-2.6); Phosphorus 4.9 mg/dL (2.5-4.9); Potassium 4.7 mmol/L (3.5-5.1); Protein, Total 5.6 g/dL (6.4-8.2); Sodium Level 142 mmol/L (136-145)
--- NOTE | 2023-05-31 07:23 | PCM.PN.INT ---
Assessment & Plan Assessment/Plan (1) MAJO (acute kidney injury): (2) Metabolic acidosis: PLAN: Plan RECOMMENDATIONS: 1. Continue empiric antimicrobials, pending finalized culture results. 2. Defer ongoing need for sodium bicarbonate to nephrology. 3. Continue to monitor H&H. Transfuse if hemoglobin drops below 7 g/dL. 4. Continue appropriate DVT prophylaxis. 5. Encourage incentive spirometer use and mobilize patient as tolerated. 6. The patient is medically stable for transfer out of the intensive care unit. IMPRESSIONS: 1. Multifactorial shock The patient presented to the hospital with generalized weakness and dizziness in the setting of decreased p.o. intake and hypotension. Her presenting symptoms were likely multifactorial with intravascular volume depletion and possible sepsis contributing. The patient did develop fluid refractory hypotension, which required the initiation of vasopressor support. However, with aggressive volume resuscitation, the patient has been weaned from vasopressor support. C. difficile colitis was ruled out. Blood and urine cultures are still pending. Plan to continue empiric antimicrobials for now. If cultures are negative tomorrow, antibiotics can be likely discontinued. 2. Acute kidney injury Improving. Most likely prerenal in etiology with evolution to ischemic ATN in the setting of #1. The patient remains on a sodium bicarb infusion with improving renal function parameters. Nephrology is following to assist with medical management. 3. Anemia The patient was quite hemoconcentrated upon arrival to the hospital. With volume resuscitation her hemoglobin was noted to have dropped. Plan to continue to monitor H&H and transfuse if hemoglobin drops below 7 g/dL. Continue PPI therapy. 4. History of colon CA status post recent surgical intervention/hypertension/GERD Complicates care, management, recovery and prognosis. Continue to hold home antihypertensives. This note was generated with [employer] dictation software. It may contain incorrect words, spelling, and punctuation that were not noted in checking the note before signing. Subjective Subjective The patient was seen and examined at the bedside this morning. Events from the last 24 hours have been reviewed. The patient is currently afebrile, hemodynamically stable and maintaining appropriate oxygen saturations on room air. The patient was able to be weaned completely off of Levophed. She has no specific complaints this morning. The patient is documented to be overall net +3.4 L for the hospitalization. Hemoglobin this morning was noted to be 7.4 g/dL. Renal function has improved with a BUN of 86 and creatinine of 3.68. Objective Data Objective Data The patient's most recent lab work, culture data and imaging studies have all been personally reviewed. C. difficile PCR was negative. Enteric panel was unremarkable. Blood and urine cultures are pending. Vital Signs: Vital Signs Temp Pulse Resp BP Pulse Ox O2 Del Method 98.3 F 77 18 140/58 H 95 Room Air 05/31/23 04:00 05/31/23 06:21 05/31/23 06:21 05/31/23 06:21 05/31/23 06:21 05/31/23 06:21 Oxygen Delivery Method Room Air Weight: 170 lb 6.677 oz Body Mass Index (BMI) 26.6 Intake & Output: Intake and Output for Last 24 Hours 05/29/23 05/30/23 05/31/23 23:59 23:59 23:59 Intake Total 1080 / 1080 7414.10 / 7414.10 50 / 50 Output Total 415 / 430 4065 / 4065 650 / 650 Balance 665 / 650 3349.10 / 3349.10 -600 / -600 Lab / Micro Data Attestation: I reviewed the patient's lab results. 05/31/23 05:00 05/31/23 05:00 Labs: Laboratory Results - last 24 hr 05/30/23 09:20: WBC 11.7 H, RBC 3.01 L, Hgb 8.3 L, Hct 25.2 L, MCV 83.7, MCH 27.6, MCHC 32.9, RDW Std Deviation 53.6 H, RDW Coeff of Ismael 17.5 H, Plt Count 441, MPV 9.9, Immature Gran % (Auto) 0.500, Neut % (Auto) 80.3 H, Lymph % (Auto) 7.1 L, [place] % (Auto) 11.5 H, Eos % (Auto) 0.3, Baso % (Auto) 0.3, Absolute Neuts (auto) 9.4 H, Absolute Lymphs (auto) 0.83, Nucleated RBC % 0, Sodium 134 L, Potassium 5.0, Chloride 101, Carbon Dioxide 17.0 L, Anion Gap 16 H, BUN 125 H*, Creatinine 7.16 H, Estim Creat Clear Calc 7.01, Est GFR (MDRD) Af Amer 7 L, Est GFR (MDRD) Non-Af 6 L, BUN/Creatinine Ratio 17.5, Glucose 234 H, Calcium 9.1, Phosphorus 8.1 H, Magnesium 2.1, Total Creatine Kinase 34, Blood Type B NEGATIVE, Antibody Screen NEGATIVE 05/30/23 09:30: MRSA (PCR) Negative 05/31/23 05:00: WBC 5.9, RBC 2.79 L, Hgb 7.4 L, Hct 23.6 L, MCV 84.6, MCH 26.5 L, MCHC 31.4 L, RDW Std Deviation 53.8 H, RDW Coeff of Ismael 17.2 H, Plt Count 267, MPV 9.1, Immature Gran % (Auto) 0.300, Neut % (Auto) 68.5, Lymph % (Auto) 11.2 L, [place] % (Auto) 13.9 H, Eos % (Auto) 5.6 H, Baso % (Auto) 0.5, Absolute Neuts (auto) 4.0, Absolute Lymphs (auto) 0.66 L, Nucleated RBC % 0, Sodium 142, Potassium 4.7, Chloride 104, Carbon Dioxide 32.0, Anion Gap 6, BUN 86 H, Creatinine 3.68 H, Estim Creat Clear Calc 13.64, Est GFR (MDRD) Af Amer 16 L, Est GFR (MDRD) Non-Af 13 L, BUN/Creatinine Ratio 23.4 H, Glucose 128 H, Calcium 8.4 L, Phosphorus 4.9, Magnesium 1.9, Total Bilirubin 0.30, AST 11 L, ALT 10 L, Alkaline Phosphatase 105, Total Protein 5.6 L, Albumin 2.6 L, Globulin 3.0, Albumin/Globulin Ratio 0.9 Micro: Microbiology 05/30/23 09:30 Stool C. difficile DNA Amplification - Final 05/30/23 09:30 Stool Enteric Bacteriology - Final 05/30/23 04:30 Stool Stool Occult Blood (JULIET) - Final Physical Exam Const alert and no apparent distress General Appearance: cooperative HEENT normocephalic and head/scalp atraumatic Eyes PERRL, EOMs intact bilaterally and conjunctivae normal Neck supple General: trachea midline Chest inspection of chest normal Resp normal respiratory effort Auscultation: diminished lung sounds; Negative for rales, rhonchi or wheezes Cardio regular rate and regular rhythm GI soft to palpation and non-tender Inspection: ostomy present Extremity no clubbing, cyanosis or edema Skin no rashes or lesions noted Neuro oriented x3, CN's II-XII intact bilaterally, moves all extremities and no focal motor deficits Psych cooperative and affect normal Charges/Coding Visit Charges Inpatient E&M: 33541 Subs Hosp L3
--- NOTE | 2023-05-31 08:27 | PN.HOSP_ITS ---
Reason for Visit Reason for Visit: Diagnoses Acidosis, unspecified (05/29/23) Acute kidney failure, unspecified (05/29/23) Objective Data Objective Data Vital Signs: Vital Signs Temp Pulse Resp BP Pulse Ox O2 Del Method 98.8 F 92 19 H 100/58 L 96 Room Air 05/31/23 08:00 05/31/23 08:00 05/31/23 08:00 05/31/23 08:00 05/31/23 08:00 05/31/23 08:00 Oxygen Delivery Method Room Air Weight: 170 lb 6.677 oz Body Mass Index (BMI) 26.6 Intake & Output: Intake and Output for Last 24 Hours 05/29/23 05/30/23 05/31/23 23:59 23:59 23:59 Intake Total 1080 / 1080 7414.10 / 7414.10 50 / 50 Output Total 415 / 430 4065 / 4065 650 / 650 Balance 665 / 650 3349.10 / 3349.10 -600 / -600 Lab / Micro Data 05/31/23 05:00 05/31/23 05:00 Labs: Laboratory Results - last 24 hr 05/30/23 09:20: WBC 11.7 H, RBC 3.01 L, Hgb 8.3 L, Hct 25.2 L, MCV 83.7, MCH 27.6, MCHC 32.9, RDW Std Deviation 53.6 H, RDW Coeff of Ismael 17.5 H, Plt Count 44 1, MPV 9.9, Immature Gran % (Auto) 0.500, Neut % (Auto) 80.3 H, Lymph % (Auto) 7.1 L, [place] % (Auto) 11.5 H, Eos % (Auto) 0.3, Baso % (Auto) 0.3, Absolute Neuts (auto) 9.4 H, Absolute Lymphs (auto) 0.83, Nucleated RBC % 0, Sodium 134 L, Potassium 5.0, Chloride 101, Carbon Dioxide 17.0 L, Anion Gap 16 H, BUN 125 H*, Creatinine 7.16 H, Estim Creat Clear Calc 7.01, Est GFR (MDRD) Af Amer 7 L, Est GFR (MDRD) Non-Af 6 L, BUN/Creatinine Ratio 17.5, Glucose 234 H, Calcium 9.1, Phosphorus 8.1 H, Magnesium 2.1, Total Creatine Kinase 34, Blood Type B NEGATIVE, Antibody Screen NEGATIVE 05/30/23 09:30: MRSA (PCR) Negative 05/31/23 05:00: WBC 5.9, RBC 2.79 L, Hgb 7.4 L, Hct 23.6 L, MCV 84.6, MCH 26.5 L , MCHC 31.4 L, RDW Std Deviation 53.8 H, RDW Coeff of Ismael 17.2 H, Plt Count 267, MPV 9.1, Immature Gran % (Auto) 0.300, Neut % (Auto) 68.5, Lymph % (Auto) 11.2 L , [place] % (Auto) 13.9 H, Eos % (Auto) 5.6 H, Baso % (Auto) 0.5, Absolute Neuts (auto) 4.0, Absolute Lymphs (auto) 0.66 L, Nucleated RBC % 0, Sodium 142, Potassium 4.7, Chloride 104, Carbon Dioxide 32.0, Anion Gap 6, BUN 86 H, Creatinine 3.68 H, Estim Creat Clear Calc 13.64, Est GFR (MDRD) Af Amer 16 L, Est GFR (MDRD) Non-Af 13 L, BUN/Creatinine Ratio 23.4 H, Glucose 128 H, Calcium 8.4 L, Phosphorus 4.9, Magnesium 1.9, Total Bilirubin 0.30, AST 11 L, ALT 10 L, Alkaline Phosphatase 105, Total Protein 5.6 L, Albumin 2.6 L, Globulin 3.0, Albumin/Globulin Ratio 0.9 Micro: Microbiology 05/30/23 09:30 Stool C. difficile DNA Amplification - Final 05/30/23 09:30 Stool Enteric Bacteriology - Final 05/30/23 04:30 Stool Stool Occult Blood (JULIET) - Final Physical Exam Narrative Seen and examined. Patient is awake and alert and responsive. Urine output has increased mostly clear except some residual in the Dennis tube. Increased stool/ileostomy output. Levophed is off. No fever. Physical exam: General: Alert, Oriented x3, Cooperative HEENT: Atraumatic, PERRLA, EOMI, Normocephalic Oral: Oral mucosa dry. No Gingival or Mucosal Lesions/ Ulcerations Neck: Supple, No JVD, Negative Carotid Bruits Lungs: Air entry diminished in bilateral lung bases. No crepitation/rhonchi Cardiovascular: Regular rate, Regular Rhythm, Normal S1, Normal S2, systolic murmur LLSB and apex Abdomen: Bowel Sounds Present, Soft, Non Tender, Non-Distended. RLQ ileostomy with liquid bilious stool. : Dennis catheter. No renal angle tenderness. No suprapubic tenderness. Extremities: Pitting bilateral ankle edema, Capillary Refill Less than 3 Seconds Skin: No rashes, No breakdown Musculoskeletal: No Tenderness to Palpation of Joints or Extremities. ROM intact. Neurological: Cranial nerves II-XII grossly intact, DTR 2+/4. No acute focal neurological deficit. Psych/Mental Status: Normal Affect, Appropriate. Assessment & Plan Assessment/Plan (1) MAJO (acute kidney injury): (2) Metabolic acidosis: PLAN: Plan #Acute kidney injury with metabolic acidosis and hyperkalemia * admit to ICU * Cr is 10, with last known Cr being 0.86, from 2017 * BUN is 144 and potassium is 7.2 (no hemolysis) * sodium is 128. * consult nephrology urgently; ED doctor spoke to nephrology and Dr Tafoya requested for initiation of a bicarb drip * insert Dennis catheter * CT abdomen and pelvis showed no evidence of urinary outlet obstruction * hydrate with IVF NS @ 125cc/hr * give potassium depleting cocktail * consult critical care * didnt recently have chemotherapy so tumor lysis syndrome is lower on the list of differentials. Uric acid was high 15.8. Phosphorus 8.1 05/31: Patient off Levophed drip last night. Maintaining her blood pressure in systolic 100s. cardiac monitor shows sinus rhythm. Phosphorus 4.9. BUN/creatinine profile but 36/3.68. Urine output about 1900 mL yesterday and 500 mL since midnight. Ileostomy/stool output 2100 mL yesterday. Net positive fluid balance 3.4 L. #Anion gap metabolic acidosis * start bicarb drip per nephrology * bicarb is 13 and anion gap is 20. 05/31: Electrolytes in normal range. Anion gap 6 bicarb 32. Patient on bicarbonate which can be stopped. #Hyperkalemia: as above. EKG didnt show any acute ST changes. 05/31: Resolved. #Hyponatremia: * sodium is 128. Likely due to dehydration. Should improve with hydration. if it doesnt, will do further workup for hyponatremia 05/31: Resolved. #Leucocytosis * wbc is 14.5, H&H 11.2/36.3 probably concentrated as it dropped to 7.8 next day. * denies any cough or shortness of breath * CXR showed patchy opacities in the right lung base which could represent atelectasis vs infection * CT abdomen showed bibasilar consolidations vs atelectasis. * Says she has no cough or shortness of breath no fever, the WBC could be reactive and I am leaning more towards possible atelectasis for the chest imaging findings. 05/31: Leukocytosis resolved WBC count 5.9 thousand. Severe normocytic anemia 7.4. Platelet count normal. #Adenocarcinoma of the cecum with mets to the peritoneum * hasnt had chemotherapy for ~ 4 weeks * s/p colectomy * had surgery with ileostomy bag placement a few weeks ago * management as per oncology DVT prophylaxis: heparin We will discontinue heparin. Code status; full code. * Patient counseled extensively about different types of CODE STATUS including full code, DNR CCA and DNR CCA. Patient elects to be full code. Her healthcare power of civil attorney is her daughter Jocelynn. Total time of the visit including total time spent in counseling or coordination of care, (more than 50% of the total time, spent in obtaining medical information from nurses and other ancillary care providers,explaining to the patient about labs, imaging, diagnosis and management of active complex medical conditions), discussion with consultants head trimmer and fiber optics engineer, review of labs and imaging is 45 minutes. Charges/Coding Visit Charges Inpatient E&M: 63643 Subs Hosp L3
[2023-05-31] MEDS: 0.45% Normal Saline 1,000 ML 100 ML IV ×2 (09:20→19:29)
[2023-05-31] MEDS: Pantoprazole Sodium 20 MG Tablet PO (09:20)
[2023-05-31 09:21] LABS: CPK Total, Creatine Kinase 32 U/L (26-192); Uric Acid 11.1 mg/dL (2.6-6.0)
--- NOTE | 2023-05-31 11:03 | PN.RENAL_ITS ---
Subjective Subjective Patient is awake, resting quietly. Denies any complaints today. She is complaining of feeling thirsty. Objective Data Objective Data Vital Signs: Vital Signs Temp Pulse Resp BP Pulse Ox O2 Del Method 98.8 F 93 19 H 99/51 L 100 Room Air 05/31/23 08:00 05/31/23 10:00 05/31/23 08:00 05/31/23 10:00 05/31/23 10:00 05/31/23 10:00 Oxygen Delivery Method Room Air Weight: 77.3 kg Body Mass Index (BMI) 26.6 Intake & Output: Intake and Output for Last 24 Hours 05/29/23 05/30/23 05/31/23 23:59 23:59 23:59 Intake Total 1080 / 1080 7414.10 / 7414.10 1200 / 1200 Output Total 415 / 430 4065 / 4065 900 / 900 Balance 665 / 650 3349.10 / 3349.10 300 / 300 Lab / Micro Data 05/31/23 05:00 05/31/23 05:00 Labs: Laboratory Results - last 24 hr 05/30/23 09:20: Total Creatine Kinase 34 05/30/23 09:30: MRSA (PCR) Negative 05/31/23 05:00: WBC 5.9, RBC 2.79 L, Hgb 7.4 L, Hct 23.6 L, MCV 84.6, MCH 26.5 L , MCHC 31.4 L, RDW Std Deviation 53.8 H, RDW Coeff of Ismael 17.2 H, Plt Count 267, MPV 9.1, Immature Gran % (Auto) 0.300, Neut % (Auto) 68.5, Lymph % (Auto) 11.2 L , Bethel % (Auto) 13.9 H, Eos % (Auto) 5.6 H, Baso % (Auto) 0.5, Absolute Neuts (auto) 4.0, Absolute Lymphs (auto) 0.66 L, Nucleated RBC % 0, Sodium 142, Potassium 4.7, Chloride 104, Carbon Dioxide 32.0, Anion Gap 6, BUN 86 H, Creatinine 3.68 H, Estim Creat Clear Calc 13.64, Est GFR (MDRD) Af Amer 16 L, Est GFR (MDRD) Non-Af 13 L, BUN/Creatinine Ratio 23.4 H, Glucose 128 H, Uric Acid 11.1 H, Calcium 8.4 L, Phosphorus 4.9, Magnesium 1.9, Total Bilirubin 0.30, AST 11 L, ALT 10 L, Alkaline Phosphatase 105, Total Creatine Kinase 32, Total Protein 5.6 L, Albumin 2.6 L, Globulin 3.0, Albumin/Globulin Ratio 0.9 Micro: Microbiology 05/30/23 06:45 Urine Catheter - Wilson Urine Culture - Preliminary GPC Poss Enterococcus sp GNR lactose organic chemistry professor 05/30/23 09:30 Stool C. difficile DNA Amplification - Final 05/30/23 09:30 Stool Enteric Bacteriology - Final 05/30/23 04:30 Stool Stool Occult Blood (JULIET) - Final Physical Exam Narrative Alert awake oriented x 3 no obvious distress s1s2 no murmurs lungs clear abdomen soft no edema wilson + Assessment & Plan Assessment/Plan (1) MAJO (acute kidney injury): PLAN: Acute renal failure likely secondary to significant volume depletion. Normal baseline creatinine. Creatinine 10 mg/dL on admission (05/29), today renal function improving, creatinine 3.68 mg/dL. No acute indication for [facility]. Potassium and bicarb normal. Good urine output. CT abdomen without any hydronephrosis. She had a CT cystogram with [facility] on the which did not show any urinary leak. Poor appetite, poor oral intake. Initially on IV bicarbonate, changed to half-normal saline. Continue IV fluids as combined output yesterday from urine and stool around 4 L. Encouraged patient to try to increase solute and fluid intake. Hyperkalemia. Potassium has improved. HTN; bps on low side, amlodipine on hold Stool negative for C. difficile. Blood culture, urine culture final report pending. On Zosyn
[2023-06-01] VITALS: BP 112/58; PULSE 97; RESP 15; TEMP 36.7; O2SAT 97
[2023-06-01 01:00] VITALS: BP 114/71; PULSE 100; RESP 18; TEMP 36.7; O2SAT 97
[2023-06-01] MEDS: Heparin Injection (Vial) 5,000 UNIT/ML VIAL 5000 UNIT SC (05:19)
[2023-06-01] MEDS: 0.45% Normal Saline 1,000 ML 100 ML IV (05:19)
[2023-06-01 05:32] VITALS: BMI 27.2
[2023-06-01 05:34] LABS: Absolute Lymphocyte Count 0.82 X10^3/uL (0.83-4.51); Absolute Neutrophil Count 3.7 X10^3/uL (2.0-7.7); Basophil# 0.02 X10^3/uL; Basophil% 0.3 % (0-1); Eosinophil# 0.64 X10^3/uL; Eosinophils% 10.6 % (0-5); Hemoglobin 7.3 g/dL (12.0-15.0); Lymphocyte # 0.82 X10^3/ul (0.83-4.51); Lymphocyte % 13.5 % (19-41); Mean Corp Hgb Conc 30.4 g/dL (32-36); Mean Corpuscular Volume 88.9 fL (81-99); Mean Platelet Vol. 9.2 fl (6.2-12.0); Monocyte# 0.81 X10^3/uL; Monocyte% 13.4 % (0-10); NRBC Flagged by Analyzer 0 % (0-5); Neutrophil # 3.74 X10^3/uL (2.7-7.7); Neutrophil % 61.7 % (47-70); Platelet Count 244 K/mm3 (150-450); RBC Distribution Width CV 17.3 % (11.6-14.6); White Blood Count 6.1 K/mm3 (4.4-11.0)
[2023-06-01 05:56] LABS: ALB/GLOB Ratio 0.8 RATIO (0.9-2.4); AST(SGOT) 13 U/L (15-37); Alanine Aminotransfer ALT/SGPT 11 U/L (13-56); Albumin, Serum 2.5 g/dL (3.2-5.0); Alkaline Phosphatase 102 U/L (45-117); Anion Gap 0 (5-15); BUN 55 mg/dL (7-18); BUN/Creat Ratio 22.1 RATIO (10-20); Calcium,Total 8.3 mg/dL (8.5-10.1); Chloride 107 mmol/L (98-107); Creatinine, Serum 2.49 mg/dL (0.55-1.02); EST Glomerular Filtration Rate 20 mL/min (>60); Est Glom Filt Rate - Afr Amer 25 mL/min (>60); Estimated Creatinine Clearance 20.15 ml/min; Globulin 3.1 g/dL (2.2-4.2); Glucose 87 mg/dL (74-106); Magnesium 1.9 mg/dL (1.6-2.6); Phosphorus 3.2 mg/dL (2.5-4.9); Protein, Total 5.6 g/dL (6.4-8.2); Sodium Level 140 mmol/L (136-145)
[2023-06-01 05:58] LABS: Vancomycin, Random Level 12.2 ug/mL (0.0-15.0)
[2023-06-01 06:21] LABS: CPK Total, Creatine Kinase 33 U/L (26-192)
--- NOTE | 2023-06-01 06:51 | PCM.PN.INT ---
Assessment & Plan Assessment/Plan (1) MAJO (acute kidney injury): (2) Metabolic acidosis: PLAN: Plan RECOMMENDATIONS: 1. Okay to discontinue antimicrobials from my perspective. 2. Continue supplemental IV fluid hydration. 3. Continue to monitor H&H. Transfuse if hemoglobin drops below 7 g/dL. 4. Continue appropriate DVT prophylaxis. 5. Encourage incentive spirometer use and mobilize patient as tolerated. 6. We will sign off from a critical care perspective. Please call with any additional questions. IMPRESSIONS: 1. Multifactorial shock The patient presented to the hospital with generalized weakness and dizziness in the setting of decreased p.o. intake and hypotension. Her presenting symptoms were likely multifactorial with intravascular volume depletion. Sepsis was ruled out with negative culture results. The patient did develop fluid refractory hypotension, which required the initiation of vasopressor support. However, with aggressive volume resuscitation, the patient has been weaned from vasopressor support. C. difficile colitis was ruled out. Empiric antimicrobials can be discontinued from my perspective. 2. Acute kidney injury Improving. Most likely prerenal in etiology with evolution to ischemic ATN in the setting of #1. Nephrology is following to assist with medical management. 3. Anemia The patient was quite hemoconcentrated upon arrival to the hospital. With volume resuscitation her hemoglobin was noted to have dropped. Plan to continue to monitor H&H and transfuse if hemoglobin drops below 7 g/dL. Continue PPI therapy. 4. History of colon CA status post recent surgical intervention/hypertension/GERD Complicates care, management, recovery and prognosis. Continue to hold home antihypertensives. This note was generated with [employer] dictation software. It may contain incorrect words, spelling, and punctuation that were not noted in checking the note before signing. Subjective Subjective The patient was seen and examined at the bedside this morning. Events from the last 24 hours have been reviewed. The patient is currently afebrile, hemodynamically stable and maintaining appropriate oxygen saturations on room air. No overnight events were noted. Hemoglobin remained stable at 7.3 g/dL. Creatinine has improved to 2.49. Objective Data Objective Data The patient's most recent lab work, culture data and imaging studies have all been personally reviewed. C. difficile PCR was negative. Enteric panel was unremarkable. Blood and urine cultures are pending. Vital Signs: Vital Signs Temp Pulse Resp BP Pulse Ox O2 Del Method 98.0 F 100 18 114/71 97 Room Air 06/01/23 01:00 06/01/23 01:00 06/01/23 01:00 06/01/23 01:00 06/01/23 01:00 06/01/23 02:00 Oxygen Delivery Method Room Air Weight: 173 lb 15.115 oz Body Mass Index (BMI) 27.2 Intake & Output: Intake and Output for Last 24 Hours 05/30/23 05/31/23 06/01/23 23:59 23:59 23:59 Intake Total 7414.10 / 7414.10 2250 / 2250 1033.33 / 1033.33 Output Total 4065 / 4065 3050 / 3050 850 / 850 Balance 3349.10 / 3349.10 -800 / -800 183.33 / 183.33 Lab / Micro Data Attestation: I reviewed the patient's lab results. 06/01/23 05:30 06/01/23 05:30 Labs: Laboratory Results - last 24 hr 05/31/23 05:00: Uric Acid 11.1 H, Total Creatine Kinase 32 06/01/23 05:30: WBC 6.1, RBC 2.70 L, Hgb 7.3 L, Hct 24.0 L, MCV 88.9 D, MCH 27.0, MCHC 30.4 L, RDW Std Deviation 56.0 H, RDW Coeff of Ismael 17.3 H, Plt Count 244, MPV 9.2, Immature Gran % (Auto) 0.500, Neut % (Auto) 61.7, Lymph % (Auto) 13.5 L, [place] % (Auto) 13.4 H, Eos % (Auto) 10.6 H, Baso % (Auto) 0.3, Absolute Neuts (auto) 3.7, Absolute Lymphs (auto) 0.82 L, Nucleated RBC % 0, Sodium 140, Potassium 5.0, Chloride 107, Carbon Dioxide 33.0 H, Anion Gap 0 L, BUN 55 H, Creatinine 2.49 H, Estim Creat Clear Calc 20.15, Est GFR (MDRD) Af Amer 25 L, Est GFR (MDRD) Non-Af 20 L, BUN/Creatinine Ratio 22.1 H, Glucose 87, Calcium 8.3 L, Phosphorus 3.2, Magnesium 1.9, Total Bilirubin 0.30, AST 13 L, ALT 11 L, Alkaline Phosphatase 102, Total Creatine Kinase 33, Total Protein 5.6 L, Albumin 2.5 L, Globulin 3.1, Albumin/Globulin Ratio 0.8 L, Random Vancomycin 12.2 Micro: Microbiology 05/30/23 06:45 Urine Catheter - Dennis Urine Culture - Preliminary GPC Poss Enterococcus sp GNR lactose cylinder tester 05/30/23 09:30 Stool C. difficile DNA Amplification - Final 05/30/23 09:30 Stool Enteric Bacteriology - Final 05/30/23 04:30 Stool Stool Occult Blood (JULIET) - Final Physical Exam Const alert and no apparent distress General Appearance: cooperative HEENT normocephalic and head/scalp atraumatic Eyes PERRL, EOMs intact bilaterally and conjunctivae normal Neck supple General: trachea midline Chest inspection of chest normal Resp normal respiratory effort Auscultation: diminished lung sounds; Negative for rales, rhonchi or wheezes Cardio regular rate and regular rhythm GI soft to palpation and non-tender Inspection: ostomy present Extremity no clubbing, cyanosis or edema Skin no rashes or lesions noted Neuro oriented x3, CN's II-XII intact bilaterally, moves all extremities and no focal motor deficits Psych cooperative and affect normal Charges/Coding Visit Charges Inpatient E&M: 76767 Subs Hosp L2
[2023-06-01 07:00] VITALS: BP 110/64; PULSE 83; RESP 16; TEMP 36.7; O2SAT 98
--- NOTE | 2023-06-01 07:28 | PN.HOSP_ITS ---
Reason for Visit Reason for Visit: Diagnoses Acidosis, unspecified (05/29/23) Acute kidney failure, unspecified (05/29/23) Subjective Subjective No acute complaint. Ileostomy bag is still has liquid bilious stool Objective Data Objective Data Vital Signs: Vital Signs Temp Pulse Resp BP Pulse Ox O2 Del Method 98.0 F 100 18 114/71 97 Room Air 06/01/23 01:00 06/01/23 01:00 06/01/23 01:00 06/01/23 01:00 06/01/23 01:00 06/01/23 02:00 Oxygen Delivery Method Room Air Weight: 173 lb 15.115 oz Body Mass Index (BMI) 27.2 Intake & Output: Intake and Output for Last 24 Hours 05/30/23 05/31/23 06/01/23 23:59 23:59 23:59 Intake Total 7414.10 / 7414.10 2250 / 2250 1033.33 / 1033.33 Output Total 4065 / 4065 3050 / 3050 850 / 850 Balance 3349.10 / 3349.10 -800 / -800 183.33 / 183.33 Lab / Micro Data 06/01/23 05:30 06/01/23 05:30 Labs: Laboratory Results - last 24 hr 05/31/23 05:00: Uric Acid 11.1 H, Total Creatine Kinase 32 06/01/23 05:30: WBC 6.1, RBC 2.70 L, Hgb 7.3 L, Hct 24.0 L, MCV 88.9 D, MCH 27.0, MCHC 30.4 L, RDW Std Deviation 56.0 H, RDW Coeff of Ismael 17.3 H, Plt Count 244, MPV 9.2, Immature Gran % (Auto) 0.500, Neut % (Auto) 61.7, Lymph % (Auto) 13.5 L, Marshall % (Auto) 13.4 H, Eos % (Auto) 10.6 H, Baso % (Auto) 0.3, Absolute Neuts (auto) 3.7, Absolute Lymphs (auto) 0.82 L, Nucleated RBC % 0, Sodium 140, Potassium 5.0, Chloride 107, Carbon Dioxide 33.0 H, Anion Gap 0 L, BUN 55 H, C reatinine 2.49 H, Estim Creat Clear Calc 20.15, Est GFR (MDRD) Af Amer 25 L, Est GFR (MDRD) Non-Af 20 L, BUN/Creatinine Ratio 22.1 H, Glucose 87, Calcium 8.3 L, Phosphorus 3.2, Magnesium 1.9, Total Bilirubin 0.30, AST 13 L, ALT 11 L, Alkaline Phosphatase 102, Total Creatine Kinase 33, Total Protein 5.6 L, Albumin 2.5 L, Globulin 3.1, Albumin/Globulin Ratio 0.8 L, Random Vancomycin 12.2 Micro: Microbiology 05/30/23 06:45 Urine Catheter - Dennis Urine Culture - Preliminary GPC Poss Enterococcus sp GNR lactose front desk associate 05/30/23 09:30 Stool C. difficile DNA Amplification - Final 05/30/23 09:30 Stool Enteric Bacteriology - Final 05/30/23 04:30 Stool Stool Occult Blood (JULIET) - Final Physical Exam Narrative Seen and examined. Patient is awake and alert and responsive. Afebrile. Urine output has is clear in the Dennis tube. Increased stool/ileostomy output. Pressure spontaneously. Physical exam: General: Alert, Oriented x3, Cooperative HEENT: Atraumatic, PERRLA, EOMI, Normocephalic Oral: Oral mucosa No Gingival or Mucosal Lesions/ Ulcerations Neck: Supple, No JVD, Negative Carotid Bruits Lungs: Air entry diminished in bilateral lung bases. No crepitation/rhonchi Cardiovascular: Regular rate, Regular Rhythm, Normal S1, Normal S2, systolic murmur LLSB and apex Abdomen: Bowel Sounds Present, Soft, Non Tender, Non-Distended. RLQ ileostomy with liquid bilious stool. : Dennis catheter. No renal angle tenderness. No suprapubic tenderness. Extremities: Pitting bilateral ankle edema, Capillary Refill Less than 3 Seconds Skin: No rashes, No breakdown Musculoskeletal: No Tenderness to Palpation of Joints or Extremities. ROM intact. Neurological: Cranial nerves II-XII grossly intact, DTR 2+/4. No acute focal neurological deficit. Psych/Mental Status: Normal Affect, Appropriate. Assessment & Plan Assessment/Plan (1) MAJO (acute kidney injury): (2) Metabolic acidosis: PLAN: Plan 73-year-old female is being admitted through ED for generalized weakness, lightheadedness, hypotension, vomiting and increased ileostomy output at least 1.2 L daily. Patient had decreased urine output very concentrated before admission. Overnight patient continued to be low blood pressure/recurrent hypotension despite IV fluid patient started developing crackles therefore started on IV norepinephrine drip. #Acute kidney injury with metabolic acidosis and hyperkalemia with anion gap metabolic acidosis * Admitted to ICU. * Cr is 10, with last known Cr being 0.86, from 2017 * BUN is 144 and potassium is 7.2 (no hemolysis). Repeat potassium is 4.6. BUNs/creatinine 1.88/8.07 * sodium is 128. Martin sodium 138. * Textile Coating Machine Operator is consulted; ED doctor spoke to nephrology and Dr Tafoya. Patient on bicarb drip * Dennis catheter. Urine output 165 mL on 05/29 and 265 mL since midnight. * CT abdomen and pelvis showed no evidence of urinary outlet obstruction * didnt recently have chemotherapy so tumor lysis syndrome is lower on the list of differentials. * Repeat bicarb is 15. Anion gap 17. High anion gap metabolic acidosis. * EKG didnt show any acute ST changes. 06/01: Creatinine profile is better. Urine output 1850 mL yesterday. Stool amount 1200 bilious fluid yesterday. Patient having bilateral lower extremity pitting edema therefore IV fluid discontinued. Urine culture shows less than 1000 GPC possible Enterococcus and GNR lactose front desk associate in nonpathologic range therefore empiric antibiotic discontinued. Microbiology Past 72 Hours 05/30/23 06:55 Blood Culture (Wb) - Anticubital Right Blood Culture - Preliminary No growth in 48 hours. 05/30/23 06:45 Blood Culture (Wb) - Port Blood Culture - Preliminary No growth in 48 hours. 05/30/23 06:45 Urine Catheter - Dennis Urine Culture - Preliminary GPC Poss Enterococcus sp GNR lactose front desk associate 05/30/23 09:30 Stool C. difficile DNA Amplification - Final 05/30/23 09:30 Stool Enteric Bacteriology - Final 05/30/23 04:30 Stool Stool Occult Blood (JULIET) - Final Laboratory Results 05/31/23 05:00: Uric Acid 11.1 H, Total Creatine Kinase 32 06/01/23 05:30: WBC 6.1, RBC 2.70 L, Hgb 7.3 L, Hct 24.0 L, MCV 88.9 D, MCH 27.0, MCHC 30.4 L, RDW Std Deviation 56.0 H, RDW Coeff of Ismael 17.3 H, Plt Count 244, MPV 9.2, Immature Gran % (Auto) 0.500, Neut % (Auto) 61.7, Lymph % (Auto) 13.5 L, Marshall % (Auto) 13.4 H, Eos % (Auto) 10.6 H, Baso % (Auto) 0.3, Absolute Neuts (auto) 3.7, Absolute Lymphs (auto) 0.82 L, Nucleated RBC % 0, Sodium 140, Potassium 5.0, Chloride 107, Carbon Dioxide 33.0 H, Anion Gap 0 L, BUN 55 H, Creatinine 2.49 H, Estim Creat Clear Calc 20.15, Est GFR (MDRD) Af Amer 25 L, Est GFR (MDRD) Non-Af 20 L, BUN/Creatinine Ratio 22.1 H, Glucose 87, Calcium 8.3 L, Phosphorus 3.2, Magnesium 1.9, Total Bilirubin 0.30, AST 13 L, ALT 11 L, Alkaline Phosphatase 102, Total Creatine Kinase 33, Total Protein 5.6 L, Albumin 2.5 L, Globulin 3.1, Albumin/Globulin Ratio 0.8 L, Random Vancomycin 12.2 06/01/23 07:35: Retic Count 1.02, Immature Retic Fraction 17.10 H, Retic Hgb Equivalent 30.5, Iron Pending, TIBC Pending, Iron Saturation Pending, Ferritin Pending, Vitamin B12 Pending, Folate Pending #Hyponatremia: sodium is 128. Likely due to dehydration. Repeat sodium is 138 06/01: Serum sodium potassium bicarb level acceptable limit. #Multifactorial shock: Patient presented with hypotension with decreased intake increased ileostomy output. Patient developed refractory hypotension therefore started on norepinephrine. Potential sources of infection include pneumonia cystitis possible C. difficile. Cultures are pending. * wbc is 14.5. Repeat labs shows WBC count 8.2 thousand. Hemoglobin 7.8. Neutrophils 73%., Lymphocyte 10%. Monocytosis 15%. * denies any cough or shortness of breath * CXR showed patchy opacities in the right lung base which could represent atelectasis vs infection * CT abdomen showed bibasilar consolidations vs atelectasis. * Says she has no cough or shortness of breath no fever, the WBC could be reactive. 06/01: Started on antibiotic on admission and discontinued after cultures did not grow bacteria and pathology cringe. 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 * hasnt had chemotherapy for ~ 4 weeks. Uric acid 15.8. Lactic acid normal. * s/p colectomy. * had surgery with ileostomy bag placement a few weeks ago * management as per oncology as an outpatient. * Stool output 250 mill 05/29, 1650 mL today. 06/01: Stool for enteric bacteriology panel CD4 negative. Stool output about 1200 mL. Liquid bilious in nature. #Severe normocytic normal anemic: Patient baseline hemoglobin about 11 g in 2017 and on November 26, 2022. This might be hemoconcentrated as hemoglobin sedately decreased to 7.8 next day to 12 hours after fluid resuscitation. Anemia work-up including iron profile reticulocyte panel, B12 and folic acid ordered. DVT prophylaxis: 06/01: Heparin subcu for DVT prophylaxis discontinued because of severe anemia Code status; full code. * Patient counseled extensively about different types of CODE STATUS including full code, DNR CCA and DNR CCA. Patient elects to be full code. Her healthcare power of senior trial attorney is her daughter Jocelynn. Total time of the visit including total time spent in counseling or coordination of care, (more than 50% of the total time, spent in obtaining medical information from nurses and other ancillary care providers,explaining to the patient about labs, imaging, diagnosis and management of active complex medical conditions), discussion with consultants, review of labs and imaging is 40 minutes. Charges/Coding Visit Charges Inpatient E&M: 67954 Subs Hosp L3
[2023-06-01 07:54] LABS: Platelet Count 242 K/mm3 (150-450); RET-HE 30.5 pg (30-35); Reticulocyte Count 1.02 % (0.5-1.5)
--- NOTE | 2023-06-01 07:54 | PHA.PHARE_ITS ---
Consult Antibiotic Management Pharmacy has been consulted to manage selected antiobiotic: Vancomycin Type of Intervention Type of Consult: Follow-up Suspected Infection Suspected Infection: Sepsis Prior Doses of Antibiotics Prior Doses of Antibiotics Received/Current Regimen: Vancomycin 1750 mg X1 given 05/30/23 @ 1021 Labs Labs: Sodium 140 mmol/L (136-145) 06/01/23 05:30 Potassium 5.0 mmol/L (3.5-5.1) 06/01/23 05:30 Chloride 107 mmol/L (98-107) 06/01/23 05:30 Carbon Dioxide 33.0 mmol/L (21.0-32.0) H 06/01/23 05:30 Anion Gap 0 (5-15) L 06/01/23 05:30 BUN 55 mg/dL (7-18) H 06/01/23 05:30 Creatinine 2.49 mg/dL (0.55-1.02) H 06/01/23 05:30 Est GFR (MDRD) Af Amer 25 mL/min (>60) L 06/01/23 05:30 Est GFR (MDRD) Non-Af 20 mL/min (>60) L 06/01/23 05:30 BUN/Creatinine Ratio 22.1 RATIO (10-20) H 06/01/23 05:30 Glucose 87 mg/dL (74-106) 06/01/23 05:30 Random Vancomycin 12.2 ug/mL (0.0-15.0) 06/01/23 05:30 Microbiology Microbiology: Microbiology 05/30/23 06:55 Blood Culture (Wb) - Anticubital Right Blood Culture - Preliminary No growth in 48 hours. 05/30/23 06:45 Blood Culture (Wb) - Port Blood Culture - Preliminary No growth in 48 hours. 05/30/23 06:45 Urine Catheter - Dennis Urine Culture - Preliminary GPC Poss Enterococcus sp GNR lactose green promotions specialist 05/30/23 09:30 Stool C. difficile DNA Amplification - Final 05/30/23 09:30 Stool Enteric Bacteriology - Final 05/30/23 04:30 Stool Stool Occult Blood (JULIET) - Final Dosing Weight Weight used for dosin lb 15.115 oz Goal Trough Goal Trough: 15-20 mcg/mL Pharmacy Plan for Drug Dosing Pharmacy Plan for Drug Dosing: Begin vancomycin 750 mg q24h starting today, trough prior to 3rd dose. Pharmacy Service will continue to monitor and adjust dosing as required. Follow-Up Labs Follow-Up Labs: Trough: Vancomycin Date/Time Labs Ordered Labs to be done on [date and time ordered]: @ 0800
[2023-06-01 08:23] LABS: Ferritin 61 ng/mL (8-252); Iron 21 ug/dL (50-170); Iron Binding Capacity,Total 239 ug/dL (250-450); PERCENT IRON SATURATION 8.8 % (15.0-55.0)
[2023-06-01] MEDS: Pantoprazole Sodium 20 MG Tablet PO (08:33)
[2023-06-01 09:31] LABS: Vitamin B12 217 pg/mL (211-911)
--- NOTE | 2023-06-01 10:13 | CASEMGMT ---
Addendum entered by Srinivas Yee 06/01/23 15:22: BASSAM DEL VALLE received message that [facility] nurse inquiring about update and tentative d/c plan. Call placed to [facility] and spoke with Maia. She was made aware anticipate pt will ready for discharge over the weekend. Original Note: BASSAM DEL VALLE NOTE: BASSAM DEL VALLE to room. Pt resting in bed. Wound nurse, Kristi, @ bedside. Pt made aware therapy recommending additional therapy and that therapy can be added onto HHC orders. Pt voices thinks this would be good, as she has been weak. She confirms she does wish to resume w/[facility] and declines wanting list of other HHC options. Order placed for PT/OT eval and treat to be added onto [facility] order. Kathleen, d/c media planner, notified and will update [facility] via [facility]. Pt declines having other discharge planning needs or concerns. She states has all the ostomy supplies needed. Melida WALSH RN, CM
--- NOTE | 2023-06-01 10:26 | CASEMGMT ---
Discharge Planning Resumption HH order sent to [facility] via [facility]. Noted that PT/OT have been added. Kathleen Shin, Discharge Planning Asst.
--- NOTE | 2023-06-01 10:36 | WOUNDNOTE ---
Ileostomy appliance changed. stoma is well bedded and pink. peristomal skin is intact. cleansed with warm water and pat dry. applied a new 2 piece flat Paisley appliance with a paste ring. pt tolerated well. very appreciative of care.
[2023-06-01 13:00] VITALS: BP 120/65; PULSE 90; RESP 16; TEMP 36.6; O2SAT 99
--- NOTE | 2023-06-01 13:50 | PN.RENAL_ITS ---
Subjective Subjective No new complaints today. Ileostomy bag with mostly watery content. Urine output has improved. Creatinine down to 2.3. Appetite has improved. No nausea, abdominal pain. Objective Data Objective Data Vital Signs: Vital Signs Temp Pulse Resp BP Pulse Ox O2 Del Method 97.9 F 90 16 120/65 99 Room Air 06/01/23 13:00 06/01/23 13:00 06/01/23 13:00 06/01/23 13:00 06/01/23 13:00 06/01/23 13:00 Oxygen Delivery Method Room Air Weight: 78.9 kg Body Mass Index (BMI) 27.2 Intake & Output: Intake and Output for Last 24 Hours 05/30/23 05/31/23 06/01/23 23:59 23:59 23:59 Intake Total 7414.10 / 7414.10 2250 / 2250 1720.00 / 1720.00 Output Total 4065 / 4065 3050 / 3050 1200 / 1200 Balance 3349.10 / 3349.10 -800 / -800 520.00 / 520.00 Lab / Micro Data 06/01/23 05:30 06/01/23 05:30 Labs: Laboratory Results - last 24 hr 06/01/23 05:30: WBC 6.1, RBC 2.70 L, Hgb 7.3 L, Hct 24.0 L, MCV 88.9 D, MCH 27.0, MCHC 30.4 L, RDW Std Deviation 56.0 H, RDW Coeff of Ismael 17.3 H, Plt Count 244, MPV 9.2, Immature Gran % (Auto) 0.500, Neut % (Auto) 61.7, Lymph % (Auto) 13.5 L, Millard % (Auto) 13.4 H, Eos % (Auto) 10.6 H, Baso % (Auto) 0.3, Absolute Neuts (auto) 3.7, Absolute Lymphs (auto) 0.82 L, Nucleated RBC % 0, Sodium 140, Potassium 5.0, Chloride 107, Carbon Dioxide 33.0 H, Anion Gap 0 L, BUN 55 H, Creatinine 2.49 H, Estim Creat Clear Calc 20.15, Est GFR (MDRD) Af Amer 25 L, Est GFR (MDRD) Non-Af 20 L, BUN/Creatinine Ratio 22.1 H, Glucose 87, Calcium 8.3 L, Phosphorus 3.2, Magnesium 1.9, Total Bilirubin 0.30, AST 13 L, ALT 11 L, Alkaline Phosphatase 102, Total Creatine Kinase 33, Total Protein 5.6 L, Albumin 2.5 L, Globulin 3.1, Albumin/Globulin Ratio 0.8 L, Random Vancomycin 12.2 06/01/23 07:35: Retic Count 1.02, Immature Retic Fraction 17.10 H, Retic Hgb Equivalent 30.5, Iron 21 L, TIBC 239 L, Iron Saturation 8.8 L, Ferritin 61, Vitamin B12 217, Folate 12.10 Micro: Microbiology 05/30/23 06:45 Urine Catheter - Dennis Urine Culture - Final Enterococcus faecalis Klebsiella pneumoniae sp pneum 05/30/23 06:55 Blood Culture (Wb) - Anticubital Right Blood Culture - Preliminary No growth in 48 hours. 05/30/23 06:45 Blood Culture (Wb) - Port Blood Culture - Preliminary No growth in 48 hours. 05/30/23 09:30 Stool C. difficile DNA Amplification - Final 05/30/23 09:30 Stool Enteric Bacteriology - Final 05/30/23 04:30 Stool Stool Occult Blood (JULIET) - Final Physical Exam Narrative Alert awake oriented x 3 no obvious distress s1s2 no murmurs lungs clear abdomen soft no edema Assessment & Plan Assessment/Plan (1) MAJO (acute kidney injury): PLAN: Acute renal failure likely secondary to significant volume depletion. Normal baseline creatinine. Creatinine 10 mg/dL on admission (05/29), today renal function improving, creatinine 2.3. Good urine output. CT abdomen without any hydronephrosis. She had a CT cystogram with [facility] on the which did not show any urinary leak. Poor appetite, poor oral intake. Initially on IV bicarbonate, changed to half-normal saline. Currently off fluids due to some lower extremity edema. Hyperkalemia. Potassium has improved. HTN; bps on low side, amlodipine on hold Stool negative for C. difficile. Off pressors. Has large amounts of ileostomy output. Advised her to call [facility] to see if there can try medication such as Questran/Imodium for high ileostomy output. No further work-up from nephrology standpoint
[2023-06-01 17:46] VITALS: BP 116/72; PULSE 92; RESP 15; TEMP 36.6; O2SAT 98
[2023-06-01 23:30] VITALS: BP 130/65; PULSE 85; RESP 18; TEMP 37.1; O2SAT 98
[2023-06-02] VITALS: BP 130/65; PULSE 85; RESP 18; TEMP 37.2; O2SAT 98
[2023-06-02 05:00] VITALS: BP 129/66; PULSE 87; RESP 16; TEMP 36.7; O2SAT 96
[2023-06-02 05:37] LABS: CPK Total, Creatine Kinase 25 U/L (26-192)
[2023-06-02 05:54] LABS: Magnesium 1.5 mg/dL (1.6-2.6); Phosphorus 2.2 mg/dL (2.5-4.9)
[2023-06-02 06:00] VITALS: BMI 26.8
--- NOTE | 2023-06-02 07:37 | PN.HOSP_ITS ---
Reason for Visit Reason for Visit: Diagnoses Acidosis, unspecified (05/29/23) Acute kidney failure, unspecified (05/29/23) Objective Data Objective Data Vital Signs: Vital Signs Temp Pulse Resp BP Pulse Ox O2 Del Method 98.0 F 87 16 129/66 H 96 Room Air 06/02/23 05:00 06/02/23 05:00 06/02/23 05:00 06/02/23 05:00 06/02/23 05:00 06/02/23 05:00 Oxygen Delivery Method Room Air Weight: 171 lb 4.787 oz Body Mass Index (BMI) 26.8 Intake & Output: Intake and Output for Last 24 Hours 05/31/23 06/01/23 06/02/23 23:59 23:59 23:59 Intake Total 2250 / 2250 2060.00 / 2060.00 Output Total 3050 / 3050 2200 / 2200 450 / 450 Balance -800 / -800 -140.00 / -140.00 -450 / -450 Lab / Micro Data 06/01/23 05:30 06/01/23 05:30 Labs: Laboratory Results - last 24 hr 06/01/23 07:35: Retic Count 1.02, Immature Retic Fraction 17.10 H, Retic Hgb Equivalent 30.5, Iron 21 L, TIBC 239 L, Iron Saturation 8.8 L, Ferritin 61, Vitamin B12 217, Folate 12.10 06/02/23 05:08: Phosphorus 2.2 L, Magnesium 1.5 L, Total Creatine Kinase 25 L Micro: Microbiology 05/30/23 06:45 Urine Catheter - Dennis Urine Culture - Final Enterococcus faecalis Klebsiella pneumoniae sp pneum 05/30/23 06:55 Blood Culture (Wb) - Anticubital Right Blood Culture - Preliminary No growth in 48 hours. 05/30/23 06:45 Blood Culture (Wb) - Port Blood Culture - Preliminary No growth in 48 hours. 05/30/23 09:30 Stool C. difficile DNA Amplification - Final 05/30/23 09:30 Stool Enteric Bacteriology - Final 05/30/23 04:30 Stool Stool Occult Blood (JULIET) - Final Physical Exam Narrative Seen and examined. Patient is awake and alert and responsive. Afebrile. Urine output has is clear in the Dennis tube. Increased stool/ileostomy output. Pressure spontaneously. Physical exam: General: Alert, Oriented x3, Cooperative HEENT: Atraumatic, PERRLA, EOMI, Normocephalic Oral: Oral mucosa No Gingival or Mucosal Lesions/ Ulcerations Neck: Supple, No JVD, Negative Carotid Bruits Lungs: Air entry diminished in bilateral lung bases. No crepitation/rhonchi Cardiovascular: Regular rate, Regular Rhythm, Normal S1, Normal S2, systolic murmur LLSB and apex Abdomen: Bowel Sounds Present, Soft, Non Tender, Non-Distended. RLQ ileostomy with liquid bilious stool. : Dennis catheter. No renal angle tenderness. No suprapubic tenderness. Extremities: Pitting bilateral ankle edema, Capillary Refill Less than 3 Seconds Skin: No rashes, No breakdown Musculoskeletal: No Tenderness to Palpation of Joints or Extremities. ROM intact. Neurological: Cranial nerves II-XII grossly intact, DTR 2+/4. No acute focal neurological deficit. Psych/Mental Status: Normal Affect, Appropriate. Assessment & Plan Assessment/Plan (1) MAJO (acute kidney injury): (2) Metabolic acidosis: PLAN: Plan 73-year-old female is being admitted through ED for generalized weakness, lightheadedness, hypotension, vomiting and increased ileostomy output at least 1.2 L daily. Patient had decreased urine output very concentrated before admission. Overnight patient continued to be low blood pressure/recurrent hypotension despite IV fluid patient started developing crackles therefore started on IV norepinephrine drip. #Acute kidney injury with metabolic acidosis and hyperkalemia with anion gap metabolic acidosis * Admitted to ICU. * Cr is 10, with last known Cr being 0.86, from 2017 * BUN is 144 and potassium is 7.2 (no hemolysis). Repeat potassium is 4.6. BUNs/creatinine 1.88/8.07 * sodium is 128. Martin sodium 138. * Executive Services Administrator is consulted; ED doctor spoke to nephrology and Dr Tafoya. Patient on bicarb drip * Dennis catheter. Urine output 165 mL on 05/29 and 265 mL since midnight. * CT abdomen and pelvis showed no evidence of urinary outlet obstruction * didnt recently have chemotherapy so tumor lysis syndrome is lower on the list of differentials. * Repeat bicarb is 15. Anion gap 17. High anion gap metabolic acidosis. * EKG didnt show any acute ST changes. 06/01: Creatinine profile is better. Urine output 1850 mL yesterday. Stool amount 1200 bilious fluid yesterday. Patient having bilateral lower extremity pitting edema therefore IV fluid discontinued. Urine culture shows less than 1000 GPC possible Enterococcus and GNR lactose legal department manager in nonpathologic range therefore empiric antibiotic discontinued. Microbiology Past 72 Hours 05/30/23 06:55 Blood Culture (Wb) - Anticubital Right Blood Culture - Preliminary No growth in 48 hours. 05/30/23 06:45 Blood Culture (Wb) - Port Blood Culture - Preliminary No growth in 48 hours. 05/30/23 06:45 Urine Catheter - Dennis Urine Culture - Preliminary GPC Poss Enterococcus sp GNR lactose legal department manager 05/30/23 09:30 Stool C. difficile DNA Amplification - Final 05/30/23 09:30 Stool Enteric Bacteriology - Final 05/30/23 04:30 Stool Stool Occult Blood (JULIET) - Final Laboratory Results 05/31/23 05:00: Uric Acid 11.1 H, Total Creatine Kinase 32 06/01/23 05:30: WBC 6.1, RBC 2.70 L, Hgb 7.3 L, Hct 24.0 L, MCV 88.9 D, MCH 27.0, MCHC 30.4 L, RDW Std Deviation 56.0 H, RDW Coeff of Ismael 17.3 H, Plt Count 244, MPV 9.2, Immature Gran % (Auto) 0.500, Neut % (Auto) 61.7, Lymph % (Auto) 13.5 L, Baraga % (Auto) 13.4 H, Eos % (Auto) 10.6 H, Baso % (Auto) 0.3, Absolute Neuts (auto) 3.7, Absolute Lymphs (auto) 0.82 L, Nucleated RBC % 0, Sodium 140, Potassium 5.0, Chloride 107, Carbon Dioxide 33.0 H, Anion Gap 0 L, BUN 55 H, Creatinine 2.49 H, Estim Creat Clear Calc 20.15, Est GFR (MDRD) Af Amer 25 L, Est GFR (MDRD) Non-Af 20 L, BUN/Creatinine Ratio 22.1 H, Glucose 87, Calcium 8.3 L, Phosphorus 3.2, Magnesium 1.9, Total Bilirubin 0.30, AST 13 L, ALT 11 L, Alkaline Phosphatase 102, Total Creatine Kinase 33, Total Protein 5.6 L, Albumin 2.5 L, Globulin 3.1, Albumin/Globulin Ratio 0.8 L, Random Vancomycin 12.2 06/01/23 07:35: Retic Count 1.02, Immature Retic Fraction 17.10 H, Retic Hgb Equivalent 30.5, Iron Pending, TIBC Pending, Iron Saturation Pending, Ferritin Pending, Vitamin B12 Pending, Folate Pending #Hyponatremia: sodium is 128. Likely due to dehydration. Repeat sodium is 138 06/01: Serum sodium potassium bicarb level acceptable limit. #Multifactorial shock: Patient presented with hypotension with decreased intake increased ileostomy output. Patient developed refractory hypotension therefore started on norepinephrine. Potential sources of infection include pneumonia cystitis possible C. difficile. Cultures are pending. * wbc is 14.5. Repeat labs shows WBC count 8.2 thousand. Hemoglobin 7.8. Neutrophils 73%., Lymphocyte 10%. Monocytosis 15%. * denies any cough or shortness of breath * CXR showed patchy opacities in the right lung base which could represent atelectasis vs infection * CT abdomen showed bibasilar consolidations vs atelectasis. * Says she has no cough or shortness of breath no fever, the WBC could be reactive. 06/01: Started on antibiotic on admission and discontinued after cultures did not grow bacteria and pathology cringe. 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 * hasnt had chemotherapy for ~ 4 weeks. Uric acid 15.8. Lactic acid normal. * s/p colectomy. * had surgery with ileostomy bag placement a few weeks ago * management as per oncology as an outpatient. * Stool output 250 mill 05/29, 1650 mL today. 06/01: Stool for enteric bacteriology panel CD4 negative. Stool output about 1200 mL. Liquid bilious in nature. #Severe normocytic normal anemic: Patient baseline hemoglobin about 11 g in 2017 and on November 26, 2022. This might be hemoconcentrated as hemoglobin sedately decreased to 7.8 next day to 12 hours after fluid resuscitation. Anemia work-up including iron profile reticulocyte panel, B12 and folic acid ordered. DVT prophylaxis: 06/01: Heparin subcu for DVT prophylaxis discontinued because of severe anemia Code status; full code. * Patient counseled extensively about different types of CODE STATUS including full code, DNR CCA and DNR CCA. Patient elects to be full code. Her healthcare power of senior trial attorney is her daughter Jocelynn. Total time of the visit including total time spent in counseling or coordination of care, (more than 50% of the total time, spent in obtaining medical information from nurses and other ancillary care providers,explaining to the patient about labs, imaging, diagnosis and management of active complex medical conditions), discussion with consultants, review of labs and imaging is 40 minutes.
--- NOTE | 2023-06-02 09:08 | PCM.DC ---
Discharge Instructions Diet Discharge Diet: 2000 mg Sodium Diet Activity Discharge Activity: Return to Normal Activity Weight Bearing Status: Weight bearing as tolerated Dressing / Incision Call your doctor if you observe: Fever of 101 or Higher, Coldness, Increased Pain, Numbness or Tingling, Change in Color, Inability to urinate, Inability to have a bowel movement, Shortness of breath, Dizziness, Fainting spells, Swelling in the ankles, Chest pain, Prolonged hiccupping, Increased palpitations (irregular heartbeat) and Calf discomfort Follow Up Care When: IN 2 WEEKS Test Results: Test results from this visit will be discussed in further detail at your follow-up appointment, if applicable. Discharge Plan Admission Admit Date/Time: 05/29/23 17:39 Primary Reason for Your Visit: MAJO with metabolic acidosis Attending Provider: Papi Campos Primary Care Provider: Adrián Mckee Consulting Providers: Isamar Degroot; Enoch Desir; Mckay Warren; Jose Roberto Caballero; Jeremiah Dalton; Luis Khan; Arabella Lam NP; Florentino Tafoya Instructions Additional Instructions / Restrictions: Follow-up BMP, magnesium and phosphorus with freight flow sales leader or PCP in 1 week Discharge Orders/Prescriptions Prescriptions: Continued omeprazole 20 MG capsule 20 mg PO DAILY fexofenadine 180 MG tablet 180 mg PO DAILY PRN (Reason: ALLERGIES) amlodipine 5 mg tablet 5 mg PO DAILY 30 Days Qty: 0 0RF Rx Instructions: Hold for SBP less than 130 mmHg Held lisinopril 30 mg tablet 30 mg PO DAILY Hold Instructions: Hold for 1 week until sees freight flow sales leader Referrals / Follow Up: Adrián Mckee MD [Primary Care Provider] - Florentino Tafoya MD [Med Staff - Consulting] - Within 1 Week (Follow-up BMP, magnesium and phosphorus in 1 week) Disposition Disposition (needs filled in before D/C Order can be placed): Home Health Service
[2023-06-02] MEDS: Pantoprazole Sodium 20 MG Tablet PO (09:16)
[2023-06-02 09:33] LABS: Absolute Lymphocyte Count 0.85 X10^3/uL (0.83-4.51); Absolute Neutrophil Count 4.4 X10^3/uL (2.0-7.7); Basophil# 0.02 X10^3/uL; Basophil% 0.3 % (0-1); Eosinophil# 0.95 X10^3/uL; Eosinophils% 13.5 % (0-5); Hematocrit 24.9 % (37-47); Hemoglobin 7.7 g/dL (12.0-15.0); Lymphocyte # 0.85 X10^3/ul (0.83-4.51); Lymphocyte % 12.1 % (19-41); Mean Corp Hgb Conc 30.9 g/dL (32-36); Mean Corpuscular Hgb 27.6 pg (27.0-32.0); Mean Corpuscular Volume 89.2 fL (81-99); Mean Platelet Vol. 10.2 fl (6.2-12.0); Monocyte# 0.76 X10^3/uL; Monocyte% 10.8 % (0-10); NRBC Flagged by Analyzer 0 % (0-5); Neutrophil % 62.7 % (47-70); Platelet Count 257 K/mm3 (150-450); RBC Distribution Width CV 17.2 % (11.6-14.6); RBC Distribution Width SD 55.8 fl (35.1-43.9); Red Blood Count 2.79 M/mm3 (4.2-5.4)
[2023-06-02 09:38] LABS: Anion Gap 3 (5-15); BUN 36 mg/dL (7-18); BUN/Creat Ratio 25.5 RATIO (10-20); Calcium,Total 7.1 mg/dL (8.5-10.1); Chloride 117 mmol/L (98-107); Creatinine, Serum 1.41 mg/dL (0.55-1.02); EST Glomerular Filtration Rate 39 mL/min (>60); Est Glom Filt Rate - Afr Amer 47 mL/min (>60); Estimated Creatinine Clearance 35.59 ml/min; Glucose 77 mg/dL (74-106); Potassium 4.2 mmol/L (3.5-5.1); Sodium Level 144 mmol/L (136-145)
[2023-06-02 11:00] VITALS: BP 137/69; PULSE 93; RESP 15; TEMP 36.7; O2SAT 98
--- NOTE | 2023-06-02 11:51 | PCM.DC.SUM ---
Providers Date of Admission: 05/29/23 Date of Discharge: 06/02/23 Primary Care Physician: Dr. Adrián Mckee MD Consultations 05/29/23 19:39 Consult: It Help Desk Associate / Pulmonary Medicine Routine Consulting Provider: Pulmonary Medicine gabbie [place] Reason for Consult: MAJO with severe hyperkalemia EMERGENT Consult: No Notified: Yes Date Notified: 05/29/23 Time Notified: 17:42 Method of Notification: Text Consult: Nephrology Routine Consulting Provider: Florentino Tafoya Reason for Consult: MAJO with hyperkalemia EMERGENT Consult: No Notified: Yes Date Notified: 05/29/23 Time Notified: 17:42 Method of Notification: Text 05/31/23 10:05 Consult: Onc/Wound/director of head start Routine Comment: Last change of appliance was 05/29 Reason for Consult:: Ileostomy Comments:: Surgery 3 wks ago, home RN still helping pt manage Reason For Visit: MAJO, HYPERKALEMIA Diagnosis Discharge Diagnosis (1) MAJO (acute kidney injury): Status: Acute Code(s): N17.9 - Acute kidney failure, unspecified (2) Metabolic acidosis: Status: Acute Code(s): E87.20 - Acidosis, unspecified Plan 73-year-old female is being admitted through ED for generalized weakness, lightheadedness, hypotension, vomiting and increased ileostomy output at least 1.2 L daily. Patient had decreased urine output very concentrated before admission. Overnight patient continued to be low blood pressure/recurrent hypotension despite IV fluid patient started developing crackles therefore started on IV norepinephrine drip. #Acute kidney injury with metabolic acidosis and hyperkalemia with anion gap metabolic acidosis Admitted to ICU. Cr is 10, with last known Cr being 0.86, from 2017 BUN is 144 and potassium is 7.2 (no hemolysis). Repeat potassium is 4.6. BUNs/creatinine 1.88/8.07 sodium is 128. Martin sodium 138. Radiographer is consulted; ED doctor spoke to nephrology and Dr Tafoya. Patient on bicarb drip Dennis catheter. Urine output 165 mL on 05/29 and [address] abdomen and pelvis showed no evidence of urinary outlet obstruction didnt recently have chemotherapy so tumor lysis syndrome is lower on the list of differentials. Repeat bicarb is 15. Anion gap 17. High anion gap metabolic acidosis. EKG didnt show any acute ST changes. 06/01: Creatinine profile is better. Urine output 1850 mL yesterday. Stool amount 1200 bilious fluid yesterday. Patient having bilateral lower extremity pitting edema therefore IV fluid discontinued. 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 06/02: Rate. Labs reviewed. BUNs/creatinine 36/1.41 markedly improved. Patient making good amount of urine. Dennis catheter already removed yesterday. Voiding urine spontaneously. Electrolytes in normal range except chloride 117. Magnesium 1.5, hypomagnesemia, magnesium chloride prescription given. Total CK normal. Hold lisinopril until patient has repeat BMP, magnesium and phosphorus and follow-up with teletype or varitype keyboard operator in 1 week. Discussed with the teletype or varitype keyboard operator regarding discharge. #Hyponatremia: sodium is 128. Likely due to dehydration. Repeat sodium is 138 06/01: Serum sodium potassium bicarb level acceptable limit. #Multifactorial shock: Patient presented with hypotension with decreased intake increased ileostomy output. Patient developed refractory hypotension therefore started on norepinephrine. Potential sources of infection include pneumonia cystitis possible C. difficile. Cultures are pending. wbc is 14.5. Repeat labs shows WBC count 8.2 thousand. Hemoglobin 7.8. Neutrophils 73%., Lymphocyte 10%. Monocytosis 15%. denies any cough or shortness of breath CXR showed patchy opacities in the right lung base which could represent atelectasis vs infection CT abdomen showed bibasilar consolidations vs atelectasis. Says she has no cough or shortness of breath no fever, the WBC could be reactive. 06/01: Started on antibiotic on admission and discontinued after cultures did not grow bacteria and pathology cringe. 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 hasnt had chemotherapy for ~ 4 weeks. Uric acid 15.8. Lactic acid normal. s/p colectomy. had surgery with ileostomy bag placement a few weeks ago management as per oncology as an outpatient. Stool output 250 mill 05/29, 1650 mL today. 06/01: Stool for enteric bacteriology panel CD4 negative. Stool output about 1200 mL. Liquid bilious in nature. #Severe normocytic normal anemic: Patient baseline hemoglobin about 11 g in 2017 and on November 26, 2022. This might be hemoconcentrated as hemoglobin sedately decreased to 7.8 next day to 12 hours after fluid resuscitation. Anemia work-up including iron profile reticulocyte panel, B12 and folic acid ordered. 06/02: Anemia work-up shows low iron, TIBC low iron saturation low but ferritin normal suggestive of anemia of chronic disease probably due to kidney disease. Prescription for ferrous sulfate and vitamin C given. DVT prophylaxis: 06/01: Heparin subcu for DVT prophylaxis discontinued because of severe anemia Code status; full code. Patient counseled extensively about different types of CODE STATUS including full code, DNR CCA and DNR CCA. Patient elects to be full code. Her healthcare power of counselor nurses' association is her daughter Jocelynn. Total time of the visit including total time spent in counseling or coordination of care, (more than 50% of the total time, spent in obtaining medical information from nurses and other ancillary care providers,explaining to the patient about labs, imaging, diagnosis and management of active complex medical conditions), discussion with consultants, review of labs and imaging is 40 minutes. Medications at Discharge Home Medications omeprazole 20 mg capsule,delayed release 20 mg PO DAILY ACID REFLUX 01/12/17 fexofenadine 180 mg tablet 180 mg PO DAILY PRN ALLERGIES 01/15/17 lisinopril 30 mg tablet 30 mg PO DAILY BLOOD PRESSURE 05/29/23 amlodipine 5 mg tablet 5 mg PO DAILY BLOOD PRESSURE 30 days #0 tabs 06/02/23 ascorbic acid (vitamin C) 500 mg tablet 500 mg PO BID #60 tabs 06/02/23 ferrous sulfate 325 mg (65 mg iron) tablet (FeroSul) 325 mg PO DAILY #30 tabs 06/02/23 magnesium chloride 64 mg (magnesium chloride) tablet,delayed release 128 mg (2 x 64 mg) PO BID 3 days #12 tabs 06/02/23 Physical Exam Narrative Seen and examined. Patient is awake and alert and responsive. Afebrile. Voiding urine spontaneously. Increased stool/ileostomy output 350 mL so far since midnight. Blood pressure normal. site monitor shows sinus rhythm. Physical exam: General: Alert, Oriented x3, Cooperative HEENT: Atraumatic, PERRLA, EOMI, Normocephalic Oral: Oral mucosa No Gingival or Mucosal Lesions/ Ulcerations Neck: Supple, No JVD, Negative Carotid Bruits Lungs: Air entry diminished in bilateral lung bases. No crepitation/rhonchi Cardiovascular: Regular rate, Regular Rhythm, Normal S1, Normal S2, systolic murmur LLSB and apex Abdomen: Bowel Sounds Present, Soft, Non Tender, Non-Distended. RLQ ileostomy with liquid bilious stool. : Dennis catheter. No renal angle tenderness. No suprapubic tenderness. Extremities: Pitting bilateral ankle edema, Capillary Refill Less than 3 Seconds Skin: No rashes, No breakdown Musculoskeletal: No Tenderness to Palpation of Joints or Extremities. ROM intact. Neurological: Cranial nerves II-XII grossly intact, DTR 2+/4. No acute focal neurological deficit. Psych/Mental Status: Normal Affect, Appropriate. Weight / BMI Weight Weight: 171 lb 4.787 oz Body Mass Index (BMI) 26.8 ABG / Lab / Microbiology Data 06/02/23 05:08 06/02/23 05:08 Laboratory: Laboratory Results - last 24 hr 06/02/23 05:08: WBC 7.0, RBC 2.79 L, Hgb 7.7 L, Hct 24.9 L, MCV 89.2, MCH 27.6, MCHC 30.9 L, RDW Std Deviation 55.8 H, RDW Coeff of Ismael 17.2 H, Plt Count 257, MPV 10.2, Immature Gran % (Auto) 0.600, Neut % (Auto) 62.7, Lymph % (Auto) 12.1 L, [place] % (Auto) 10.8 H, Eos % (Auto) 13.5 H, Baso % (Auto) 0.3, Absolute Neuts (auto) 4.4, Absolute Lymphs (auto) 0.85, Nucleated RBC % 0, Sodium 144, Potassium 4.2, Chloride 117 H, Carbon Dioxide 24.0, Anion Gap 3 L, BUN 36 H, Creatinine 1.41 H, Estim Creat Clear Calc 35.59, Est GFR (MDRD) Af Amer 47 L, Est GFR (MDRD) Non-Af 39 L, BUN/Creatinine Ratio 25.5 H, Glucose 77, Calcium 7.1 L, Phosphorus 2.2 L, Magnesium 1.5 L, Total Creatine Kinase 25 L Microbiology: Microbiology 05/30/23 06:45 Urine Catheter - Dennis Urine Culture - Final Enterococcus faecalis Klebsiella pneumoniae sp pneum 05/30/23 06:55 Blood Culture (Wb) - Anticubital Right Blood Culture - Preliminary No growth in 48 hours. 05/30/23 06:45 Blood Culture (Wb) - Port Blood Culture - Preliminary No growth in 48 hours. 05/30/23 09:30 Stool C. difficile DNA Amplification - Final 05/30/23 09:30 Stool Enteric Bacteriology - Final 05/30/23 04:30 Stool Stool Occult Blood (JULIET) - Final D/C Instructions Discharge Diet: 2000 mg Sodium Diet Weight Bearing Status: Weight bearing as tolerated Call your doctor if you observe: Fever of 101 or Higher, Coldness, Increased Pain, Numbness or Tingling, Change in Color, Inability to urinate, Inability to have a bowel movement, Shortness of breath, Dizziness, Fainting spells, Swelling in the ankles, Chest pain, Prolonged hiccupping, Increased palpitations (irregular heartbeat) and Calf discomfort When: IN 2 WEEKS Meaningful Use Info Meaningful Use Diagnoses (Choose all that apply): None applicable Discharge Plan Admission Admit Date/Time: 05/29/23 17:39 Primary Reason for Your Visit: MAJO with metabolic acidosis Attending Provider: Papi Campos Primary Care Provider: Adrián Mckee Consulting Providers: Isamar Degroot; Enoch Desir; Mckay Warren; Jose Roberto Caballero; Jeremiah Dalton; Luis Khan; Arabella Lam NP; Florentino Tafoya Instructions Additional Instructions / Restrictions: Follow-up BMP, magnesium and phosphorus with teletype or varitype keyboard operator or PCP in 1 week Discharge Orders/Prescriptions Prescriptions: New ferrous sulfate [FeroSul] 325 mg (65 mg iron) tablet 325 mg PO DAILY Qty: 30 1RF ascorbic acid (vitamin C) 500 mg tablet 500 mg PO BID Qty: 60 2RF magnesium chloride 64 mg tablet,delayed release (DR/EC) 128 mg PO BID 3 Days Qty: 12 0RF Continued omeprazole 20 MG capsule 20 mg PO DAILY fexofenadine 180 MG tablet 180 mg PO DAILY PRN (Reason: ALLERGIES) amlodipine 5 mg tablet 5 mg PO DAILY 30 Days Qty: 0 0RF Rx Instructions: Hold for SBP less than 130 mmHg Held lisinopril 30 mg tablet 30 mg PO DAILY Hold Instructions: Hold for 1 week until sees teletype or varitype keyboard operator Referrals / Follow Up: Adrián Mckee MD [Primary Care Provider] - Florentino Tafoya MD [Med Staff - Consulting] - Within 1 Week (Follow-up BMP, magnesium and phosphorus in 1 week) Disposition Disposition (needs filled in before D/C Order can be placed): Home Health Service Charges/Coding Visit Charges Inpatient E&M: 67968 Disch Hosp >30min
--- NOTE | 2023-06-02 13:30 | CASEMGMT ---
Social Work SW contacted by patient's RN, patient inquiring about transportation resources for appointments. SW met with patient and introduced self and role as [facility] SW. Patient seated on chair and agreeable to speak with SW. SW engaged patient in conversation regarding transportation needs. Patient inquired about transportation options in the community. SW provided resource list of transportation services and reviewed [facility] transportation and [employer] transportation programs. Patient voiced understanding and reports no other needs. Rebecca Morrissey MSW, [place]
== END 2023-06-02 15:15 | disposition home health service (06) | DRG 640 ==
LOC: ED 17:34 → ICU 05-30 07:00
PROVIDERS: Family Medicine; Internal Medicine Critical Care Medicine; Admitting Provider Student in an Organized Health Care Education/Training Program; Emergency Provider Emergency Medicine; PCP Family Medicine; Visit Provider Internal Medicine
DX: E87.1 Hypo-osmolality and hyponatremia (principal); N17.0 Acute kidney failure with tubular necrosis; R57.9 Shock, unspecified; C78.6 Secondary malignant neoplasm of retroperitoneum and peritoneum; C18.0 Malignant neoplasm of cecum; N30.00 Acute cystitis without hematuria; E87.20 Acidosis, unspecified; D64.9 Anemia, unspecified; Z93.2 Ileostomy status; I10 Essential (primary) hypertension; D72.821 Monocytosis (symptomatic); E86.0 Dehydration; E87.5 Hyperkalemia; Z87.891 Personal history of nicotine dependence; Z80.8 Family history of malignant neoplasm of other organs or systems; Z80.3 Family history of malignant neoplasm of breast
CPT/HCPCS: 36600; 71045; 74176; 80048; 80053; 80202; 81001; 82274; 82550; 82607; 82728; 82746; 82803; 83540; 83550; 83605; 83690; 83735; 84100; 84145; 84550; 85025; 85045; 85610; 86850; 86900; 86901; 87040; 87077; 87086; 87088; 87186; 87493; 87506; 87641; 93005; 94640; 97110; 97162; 97166; 97530; 97535; 97802; 99285; J7030; J7040; J7050; A4216; J0612; J2405

== ENCOUNTER 2023-08-01 17:42 | Inpatient (IN) | payer MEDICARE, OTHER, SELFPAY ==
[2023-08-01 17:43] VITALS: BP 127/79; PULSE 101; RESP 18; TEMP 36.6; O2SAT 98; BMI 25.4
[2023-08-01 18:37] VITALS: O2SAT 99
[2023-08-01 18:39] LABS: Absolute Lymphocyte Count 1.33 X10^3/uL (0.83-4.51); Absolute Neutrophil Count 4.8 X10^3/uL (2.0-7.7); Basophil# 0.03 X10^3/uL; Basophil% 0.4 % (0-1); Eosinophil# 0.26 X10^3/uL; Eosinophils% 3.6 % (0-5); Hematocrit 33.8 % (37-47); Hemoglobin 10.6 g/dL (12.0-15.0); Lymphocyte # 1.33 X10^3/ul (0.83-4.51); Lymphocyte % 18.4 % (19-41); Mean Corp Hgb Conc 31.4 g/dL (32-36); Mean Platelet Vol. 9.1 fl (6.2-12.0); Monocyte# 0.75 X10^3/uL; Monocyte% 10.4 % (0-10); NRBC Flagged by Analyzer 0 % (0-5); Neutrophil # 4.76 X10^3/uL (2.7-7.7); Neutrophil % 66.1 % (47-70); Platelet Count 243 K/mm3 (150-450); RBC Distribution Width CV 15.8 % (11.6-14.6); RBC Distribution Width SD 49.1 fl (35.1-43.9); Red Blood Count 3.93 M/mm3 (4.2-5.4); White Blood Count 7.2 K/mm3 (4.4-11.0)
--- NOTE | 2023-08-01 18:45 | RAD_ITS ---
INDICATION: SOB EXAMINATION: Frontal view of the chest COMPARISON: Chest x-ray May 29, 2023. FINDINGS: Frontal view of the chest was obtained. The tip of the left Port-A-Cath projects over the superior vena cava. The cardiac silhouette is not enlarged. Linear atelectasis/scarring at the right lung base, similar to the prior exam. Suspected mild right lower lobe opacity, new. No pneumothorax. RAD/Chest 1 View (Portable) IMPRESSION: Atelectasis/scarring in the right lower lobe with a suspected new mild opacity. Findings raise the possibility of infection. Electronically Signed: Jonny Goldstein MD at 19:48 EST ,
[2023-08-01 18:52] LABS: Anion Gap 7 (5-15); BUN 22 mg/dL (7-18); BUN/Creat Ratio 14.9 RATIO (10-20); Calcium,Total 9.2 mg/dL (8.5-10.1); Chloride 108 mmol/L (98-107); Creatinine, Serum 1.48 mg/dL (0.55-1.02); EST Glomerular Filtration Rate 37 mL/min (>60); Est Glom Filt Rate - Afr Amer 45 mL/min (>60); Glucose 110 mg/dL (74-106); Potassium 4.1 mmol/L (3.5-5.1); Sodium Level 137 mmol/L (136-145)
[2023-08-01 19:31] VITALS: BP 141/80; PULSE 80; RESP 16; O2SAT 99
--- NOTE | 2023-08-01 19:42 | CT_ITS ---
We are attempting to reach an attending provider to discuss findings. An addendum with communication details will be sent when the communication is complete. EXAM: CT pulmonary angiogram. HISTORY: Pulmonary embolism TECHNIQUE: CTA Chest WO/W Contrast Injection A radiation dose optimization technique was used for this scan. Multiplanar reconstructions were obtained. 3-D postprocessing was performed. COMPARISON: Chest CT January 16, 2017. LIMITATIONS: None. LUNGS: Linear atelectasis in the lower lungs bilaterally. Multiple pulmonary nodules bilaterally, new since the prior exam. The largest measures 1.5 cm in the right lower lobe. Focal opacity measures 1.8 cm in the right lung apex, new since the prior exam. Mild adjacent bronchiectasis. PULMONARY VESSELS: Filling defects are in the right main pulmonary artery as well as lobar and segmental pulmonary arteries in the right upper, middle and lower lobes. Filling defect in the left lower lobar pulmonary artery. Segmental filling defects in the left upper and lower lobes as well as the lingula. PLEURA: Normal. MEDIASTINUM: Normal. HEART: Upper normal in size. No definitive evidence of right heart strain. AORTA: No thoracic aortic aneurysm or dissection. UPPER ABDOMEN: Moderate hydronephrosis of the partially visualized right kidney. BONES/SOFT TISSUES: No acute fracture. OTHER: 6 mm nodule in the right lobe of the thyroid gland. CONCLUSION: Large central pulmonary emboli diffusely bilaterally. Multiple pulmonary nodules bilaterally suggestive of metastatic disease. Opacity in the right lung apex could represent mild infection, scarring/atelectasis or metastatic disease. Partially visualized moderate right hydronephrosis. Electronically Signed: Jonny Goldstein MD at 20:38 EST , CT/CTA Chest W/WO Contrast IMPRESSION: undefined
--- NOTE | 2023-08-01 19:43 | EKG12_ITS ---
Test Reason : DYSRHYTHMIA Blood Pressure : / mmHG Vent. Rate : 076 BPM Atrial Rate : 076 BPM P-R Int : 172 ms QRS Dur : 084 ms QT Int : 388 ms P-R-T Axes : 056 017 048 degrees QTc Int : 436 ms Normal sinus rhythm Normal ECG Confirmed by OLGA FORBES, BENJI ([id number]), department editor LEIDA DUDLEY ([id number]) on 08/06/2023 10:38:07 AM Referred By: Confirmed By:NANCI ESPINOZA MD
--- NOTE | 2023-08-01 19:45 | EDS_ITS ---
HPI History of Present Illness Chief Complaint: Shortness of Breath Onset/Context/Timing Onset: Days (4) Context: exertion Timing: Intermittent Quality: Positive for Dyspnea on exertion Worsened by: Exertion Relieved by: Rest Associated Symptoms cough, rhinorrhea and clear sputum; Negative for post nasal drip, fever, sore throat, chills, sweats, white sputum, yellow sputum or green sputum Narrative Narrative: Patient presents with shortness of breath that has been getting worse over the last 4 days. Patient underwent chemotherapy last week. Patient states she was referred to the emergency department for possible pulmonary embolism. Patient states her breathing is worse with any exertion and better with rest. Patient states she is coughing up some clear sputum in the mornings. Patient also admits to some rhinorrhea. Patient denies any fevers or chills. Patient denies any chest pain. Patient states she had similar symptoms with a urinary tract infection recently. PE Risk Factors: Positive for Cancer and Recent surgery; Negative for Prior DVT or PE, Recent immobilization or Recent travel [facility] Medical History Acid reflux Adenocarcinoma of cecum Encounter for adjustment or management of vascular access device Peritoneal metastases s/p port placement Home Medications omeprazole 20 mg capsule,delayed release 40 mg PO DAILY ACID REFLUX 01/12/17 [History Last Taken 08/01/23] amlodipine 5 mg tablet 5 mg PO DAILY BLOOD PRESSURE 30 days #0 tabs 06/02/23 [Rx Last Taken 08/01/23] loperamide 2 mg capsule 2 mg PO Q6H PRN loose stool 08/01/23 [History Last Taken 08/01/23 09:58] loratadine 10 mg tablet (Claritin) 10 mg PO DAILY allergies 08/01/23 [History Last Taken 07/31/23] Allergy/AdvReac Type Severity Reaction Status Date / Time No Known Allergies Allergy Verified 08/01/23 17:43 Family History Mother Hypertension Father Melanoma Brother Melanoma Aunt Breast cancer Surgical History History of bowel resection History of Hx of ileostomy S/P laparoscopic colectomy s/p port placement (~12/06/18) Social History Smoking Status: Former smoker alcohol intake: current alcohol intake frequency: holidays/special occasions only substance use type: does not use caffeine: Yes what type of physical activity do you participate in: walking and weight training frequency: daily seatbelt use: always do you feel safe at home: Yes additional social history: - [employer]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 ROS ROS ED Constitutional Constitutional ED: Denies chills or fever(s) Eyes Eyes: Denies blurry vision or change in vision ENT ENT ED: Denies rhinorrhea or sore throat Cardiovascular Cardiovascular: Denies chest pain or palpitations Respiratory/Chest Respiratory/Chest: Reports cough and dyspnea Gastrointestinal Gastrointestinal: Reports nausea; Denies vomiting Genitourinary Genitourinary ED: Denies dysuria or hematuria Musculoskeletal Musculoskeletal: Denies back pain or neck pain Integumentary Denies abscess or rash Neurologic Neurologic: Denies headache(s) or weakness Allergic/Immunologic Allergic/Immunologic ED: Denies mouth swelling or urticaria EXAM Physical Exam Const Vital Signs: 08/01/23 17:43 08/01/23 18:37 08/01/23 18:37 Temperature 97.8 F Temperature Source Temporal Pulse Rate 101 H Respiratory Rate 18 Respiratory Effort Blood Pressure 127/79 H Blood Pressure Mean 95 Pulse Ox 98 99 Oxygen Delivery Method Room Air Room Air Room Air 08/01/23 18:37 08/01/23 19:31 08/01/23 21:19 Temperature Temperature Source Pulse Rate 80 98 Respiratory Rate 16 18 Respiratory Effort Short of Breath Blood Pressure 141/80 H 165/82 H Blood Pressure Mean 100 109 Pulse Ox 99 97 Oxygen Delivery Method Room Air Room Air 08/01/23 21:42 Temperature 98 F Temperature Source Pulse Rate 102 H Respiratory Rate 16 Respiratory Effort Blood Pressure 144/85 H Blood Pressure Mean 104 Pulse Ox Oxygen Delivery Method Positive well nourished and well developed General Appearance ED: well developed and NAD HEENT Reports moist mucous membranes Neck supple and no JVD Resp normal respiratory effort and clear to auscultation bilaterally Cardio regular rate and regular rhythm GI non-distended Auscultation: normoactive bowel sounds Palpation: soft Neuro oriented x3, CN's II-XII intact bilaterally and no sensory deficits noted Grabiel Coma Scale: document GCS findings Spontaneous Obeys Commands Oriented 15 Sensorium / Orientation: alert Motor Exam: strength 5/5 throughout Psych mental status grossly normal MDM MDM MDM Narrative Medical decision making narrative: Differential diagnosis includes pulmonary embolism, pneumonia, cardiac dysrhythmia, cardiac ischemia, urinary tract infection, and electrolyte abnormality. CBC will be obtained to assess for leukocytosis and anemia. Chest x-ray will be obtained to assess for pneumonia. Basic metabolic profile will be obtained to assess for electrolyte abnormality and renal function. High- sensitivity troponin will be obtained to assess for cardiac ischemia. CTA of the chest will be obtained to assess for pulmonary embolism. 19 rapid antigen will be obtained to assess for COVID-19 infection. Lab Data Attestation: I reviewed the patient's lab results. Lab results narrative: CBC was reviewed. There is a mild anemia with a hemoglobin of 10.6 and hematocrit 33.8. Platelets were normal. White blood cell count was normal. Basic metabolic profile was reviewed. BUN was slightly elevated at 22 and creatinine was 1.48. These are consistent with prior results. High-sensitivity troponin was reviewed and was normal at 8. Urinalysis was reviewed. Leukocyte esterase was 500 with 50-100 white blood cells. Labs: Laboratory Results - last 24 hr 08/01/23 08/01/23 18:30 20:29 WBC 7.2 RBC 3.93 L Hgb 10.6 L Hct 33.8 L MCV 86.0 MCH 27.0 MCHC 31.4 L RDW Std Deviation 49.1 H RDW Coeff of Ismael 15.8 H Plt Count 243 MPV 9.1 Immature Gran % (Auto) 1.100 H Neut % (Auto) 66.1 Lymph % (Auto) 18.4 L [place] % (Auto) 10.4 H Eos % (Auto) 3.6 Baso % (Auto) 0.4 Absolute Neuts (auto) 4.8 Absolute Lymphs (auto) 1.33 Nucleated RBC % 0 Sodium 137 Potassium 4.1 Chloride 108 H Carbon Dioxide 22.0 Anion Gap 7 BUN 22 H Creatinine 1.48 H Estim Creat Clear Calc 33.90 Est GFR (MDRD) Af Amer 45 L Est GFR (MDRD) Non-Af 37 L BUN/Creatinine Ratio 14.9 Glucose 110 H Calcium 9.2 Troponin I High Sens 8 Urine Color Yellow Urine Clarity Sl. Cloudy Urine pH 6.0 Ur Specific [place] 1.010 Urine Protein 30 H Urine Glucose (UA) Normal Urine Ketones Negative Urine Occult Blood 10 H Urine Nitrite Negative Urine Bilirubin Negative Urine Urobilinogen Normal Ur Leukocyte Esterase 500 H Urine RBC 0 SEEN Urine WBC 50-100 SEEN Ur Squamous Epith Cells 0-5 SEEN Urine Bacteria 0 SEEN Urine Mucus 0 SEEN Urine Yeast 1+ Radiography Diagnostic Testing: Clinical Impression(s) from Imaging Studies Chest X-Ray 08/01/23 18:45 IMPRESSION: Atelectasis/scarring in the right lower lobe with a suspected new mild opacity. Findings raise the possibility of infection. Electronically Signed: Jonny Goldstein MD at 19:48 EST , Chest CTA 08/01/23 19:42 IMPRESSION: undefined ADDENDUM: 08/01/232045 IMPRESSION: undefined Portable 1 view chest x-ray was obtained. On my independent interpretation, lung grady show atelectasis versus infiltrate in the right lower lobe. There is normal cardiac silhouette. Bony thorax is normal. Radiologist also interpreted the x-ray and agrees. CTA of the chest was obtained. There are bilateral central pulmonary emboli noted. There is metastatic disease noted. This was interpreted by the radiologist and was also independently reviewed by myself. Treatment and Re-Evaluation :: Patient was given IV fluids. Urine culture was ordered. Patient was advised of her findings. Patient was given a dose of Lovenox here. Patient was also given a dose of Rocephin. Because of the bilateral central pulmonary emboli, I recommended admission to the hospital. Patient is agreeable with this. Case will be discussed with the hospitalist for admission. Hospitalist will admit the patient to PCU. Patient understood and was agreeable with the plan. All questions were answered. Discharge Plan Dx/Rx/DC Orders Clinical Impression: Urinary tract infection, Bilateral pulmonary embolism Disposition Disposition: Acute Care Hospital [facility]
[2023-08-01] MEDS: 0.9% Normal Saline (1000mL) 1,000 ML 1000 ML IV (19:56)
[2023-08-01 20:10] LABS: Troponin-I HS 8 pg/mL (3.0-54.0)
[2023-08-01 20:37] LABS: Bacteria 0 SEEN /hpf (None Seen); Mucous, Urine 0 SEEN /hpf (<or=2+); Red Blood Cells-Urine 0 SEEN /hpf (0-5)
[2023-08-01 20:38] LABS: Color, Urine Yellow (Yellow); Glucose, Dipstick Normal (Normal); Ketone-Dipstick Negative (Negative); Leukocyte Esterase-Dipstick 500 /ul (Negative); Nitrite-Dipstick Negative (Negative); Occult Blood-Urine 10 /ul (Negative); Protein-Dipstick 30 mg/dl (Negative); Urine Bilirubin Dipstick Negative (Negative); Urine Clarity Sl. Cloudy (Clear); Urine Urobilinogen Normal (Normal)
[2023-08-01 20:44] LABS: White Blood Cells 50-100 SEEN /hpf (0-5); Yeast-Urine 1+ /hpf (None Seen)
[2023-08-01 20:45] LABS: Squamous Epithelial Cells - UA 0-5 SEEN /hpf (5-10)
[2023-08-01 21:19] VITALS: BP 165/82; PULSE 98; RESP 18; O2SAT 97
[2023-08-01] MEDS: Ceftriaxone 1 GM/50 ML BAG IV (21:27)
[2023-08-01] MEDS: Enoxaparin 80 MG/0.8 ML Syringe SC (21:27)
--- NOTE | 2023-08-01 21:39 | PCM.HP.STD ---
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 Mrs. Nam reports her symptoms began approximately 4 days prior to admission with dyspnea on exertion that progressed to shortness of breath at rest. She states that she was referred to the emergency department for possible pulmonary embolism with her previous work-up negative for venous thromboembolism. She does admit to rhinorrhea and congested cough with patient bringing up clear sputum mainly in the mornings. She denies associated fever, chills, nausea or vomiting. In the ER CT scan of the chest was positive for bilateral central PE's without evidence of right heart strain and her urinalysis was positive for acute cystitis; without gross hematuria with a chest x-ray that was suspicious for right lower lobe atelectasis. She was then admitted to the PCU for ongoing care for a stay that is expected to be greater than 48 hours. [facility] Medical History Acid reflux Adenocarcinoma of cecum Encounter for adjustment or management of vascular access device Peritoneal metastases s/p port placement Home Medications omeprazole 20 mg capsule,delayed release 40 mg PO DAILY ACID REFLUX 01/12/17 [History Last Taken 08/01/23] amlodipine 5 mg tablet 5 mg PO DAILY BLOOD PRESSURE 30 days #0 tabs 06/02/23 [Rx Last Taken 08/01/23] loperamide 2 mg capsule 2 mg PO Q6H PRN loose stool 08/01/23 [History Last Taken 08/01/23 09:58] loratadine 10 mg tablet (Claritin) 10 mg PO DAILY allergies 08/01/23 [History Last Taken 07/31/23] Allergy/AdvReac Type Severity Reaction Status Date / Time No Known Allergies Allergy Verified 08/01/23 17:43 Family History Mother Hypertension Father Melanoma Brother Melanoma Aunt Breast cancer Surgical History History of bowel resection History of Hx of ileostomy S/P laparoscopic colectomy s/p port placement (~12/06/18) Social History Smoking Status: Former smoker alcohol intake: current alcohol intake frequency: holidays/special occasions only substance use type: does not use caffeine: Yes what type of physical activity do you participate in: walking and weight training frequency: daily seatbelt use: always do you feel safe at home: Yes additional social history: - [employer]-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 [employer] Narrative Review of systems: Constitutional: Patient appears well-nourished and well-developed with no reports of fevers or chills Eyes: Patient denies blurry vision or changes in her vision HEENT: Patient denies sore throat or difficulty swallowing Cardiovascular: Patient denies chest pain or palpitations Respiratory: Patient admits to dyspnea on exertion that has progressed to shortness of breath at rest along with cough productive of clear sputum Gastrointestinal: Patient denies nausea, vomiting or diarrhea Genitourinary: Patient denies dysuria or hematuria Musculoskeletal: Patient denies back or neck pain Integumentary: Patient denies abscess or rash on skin Neurologic: Patient denies headache or focal neurologic deficits Allergic: Patient denies mild swelling or urticaria 14 point review of systems otherwise negative except for positives noted in HPI above. Vital Signs Vital Signs Vital Signs: 08/01/23 17:43 08/01/23 18:37 08/01/23 18:37 Temperature 97.8 F Temperature Source Temporal Pulse Rate 101 H Respiratory Rate 18 Respiratory Effort Blood Pressure 127/79 H Blood Pressure Mean 95 Pulse Ox 98 99 Oxygen Delivery Method Room Air Room Air Room Air 08/01/23 18:37 08/01/23 19:31 08/01/23 21:19 Temperature Temperature Source Pulse Rate 80 98 Respiratory Rate 16 18 Respiratory Effort Short of Breath Blood Pressure 141/80 H 165/82 H Blood Pressure Mean 100 109 Pulse Ox 99 97 Oxygen Delivery Method Room Air Room Air Weight Weight: 162 lb 14.4 oz Body Mass Index (BMI) 25.4 Physical Exam Const alert, oriented x3, no apparent distress, average body habitus and healthy appearing General Appearance: cooperative HEENT normocephalic, head/scalp atraumatic, hearing grossly normal bilaterally, moist oral mucous membranes and oropharynx normal Eyes PERRL, EOMs intact bilaterally and conjunctivae normal Neck no lymphadenopathy, supple and no JVD Resp normal respiratory effort, no retractions, no use of accessory muscles and clear to auscultation bilaterally Cardio regular rate and regular rhythm GI normal to inspection, nondistended, normoactive bowel sounds, soft to palpation, non-tender and non-distended Extremity normal to inspection Skin Skin Narrative: No rashes present at this time. Neuro oriented x3, CN's II-XII intact bilaterally, moves all extremities and no focal motor deficits Sensorium / Orientation: awake, alert, oriented to person, oriented to place and oriented to time Speech: speech normal Motor Exam: strength 5/5 throughout Psych affect normal Results Medical Records Data Attestation: I reviewed the patient's medical records Lab / Micro Data Attestation: I reviewed the patient's lab results. 08/01/23 18:30 08/01/23 18:30 Labs: Laboratory Results - last 24 hr 08/01/23 18:30: WBC 7.2, RBC 3.93 L, Hgb 10.6 L, Hct 33.8 L, MCV 86.0, MCH 27.0, MCHC 31.4 L, RDW Std Deviation 49.1 H, RDW Coeff of Ismael 15.8 H, Plt Count 243, MPV 9.1, Immature Gran % (Auto) 1.100 H, Neut % (Auto) 66.1, Lymph % (Auto) 18.4 L, Jay % (Auto) 10.4 H, Eos % (Auto) 3.6, Baso % (Auto) 0.4, Absolute Neuts (auto) 4.8, Absolute Lymphs (auto) 1.33, Nucleated RBC % 0, Sodium 137, Potassium 4.1, Chloride 108 H, Carbon Dioxide 22.0, Anion Gap 7, BUN 22 H, Creatinine 1.48 H, Estim Creat Clear Calc 33.90, Est GFR (MDRD) Af Amer 45 L, Est GFR (MDRD) Non-Af 37 L, BUN/Creatinine Ratio 14.9, Glucose 110 H, Calcium 9.2, Troponin I High Sens 8 08/01/23 20:29: Urine Color Yellow, Urine Clarity Sl. Cloudy, Urine pH 6.0, Ur Specific [place] 1.010, Urine Protein 30 H, Urine Glucose (UA) Normal, Urine Ketones Negative, Urine Occult Blood 10 H, Urine Nitrite Negative, Urine Bilirubin Negative, Urine Urobilinogen Normal, Ur Leukocyte Esterase 500 H, Urine RBC 0 SEEN, Urine WBC 50-100 SEEN, Ur Squamous Epith Cells 0-5 SEEN, Urine Bacteria 0 SEEN, Urine Mucus 0 SEEN, Urine Yeast 1+ Micro: Microbiology 08/01/23 18:39 Nasal Secretion SARS-CoV-2 Antigen (Rapid) - Final Radiology Impression Chest X-Ray 08/01/23 18:45 IMPRESSION: Atelectasis/scarring in the right lower lobe with a suspected new mild opacity. Findings raise the possibility of infection. 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 Bilateral central pulmonary emboli - Admit to PCU. Continue with full dose Lovenox 80 mg SQ twice daily begun in the ER. Check bilateral lower extremity ultrasound to evaluate for residual clot burden. Give Tylenol as needed for fever or pain. 2. Acute cystitis; without gross hematuria complicating #1 - Continue IV Rocephin begun in the ER and await culture and sensitivity data. 3. History of adenocarcinoma of the colon; status post laparoscopic colectomy a few months ago along with chronic ileostomy compounding #1 and #2 - There is a relatively high index of suspicion for a paraneoplastic component to the cause of #1. Patient was informed by her surgeon because of her recent surgery a few months ago, her decreased mobility and her cancer she was likely to have VTE. 4. Essential hypertension - Continue home medications as previous. Give IV hydralazine as needed for systolic blood pressure greater than 160 mmHg. 5. DVT prophylaxis - Patient is already on full dose Lovenox for #1 which will be continued. Total time: Approximately 55 minutes. Charges/Coding Visit Charges Inpatient E&M: 37961 Init Hosp L2
[2023-08-01 21:42] VITALS: BP 144/85; PULSE 102; RESP 16; TEMP 36.6
--- NOTE | 2023-08-01 22:04 | VDLE_ITS ---
Reason For Study: Pulmonary embolism RIGHT LEFT GSV is normal. GSV is normal. CFV is compressible, spontaneous, phasic, CFV is compressible, spontaneous, phasic, competent and demonstrates normal competent, and demonstrates normal augmentation. augmentation. FV is compressible, spontaneous, phasic, FV is compressible, spontaneous, phasic, competent and demonstrates normal competent and demonstrates normal augmentation. augmentation. POP V is compressible, spontaneous, phasic, POP V is compressible, spontaneous, phasic, competent and demonstrates normal competent and demonstrates normal augmentation. augmentation. T/P Trunk is compressible. T/P Trunk is compressible. PTV is compressible. PTV is compressible. Acute deep vein thrombosis is noted in the LT PerV is compressible. Maurice V and SoleusV. It is dilated and NONCOMPRESSIBLE. Procedure This is a venous duplex using B-mode, color flow and spectral Doppler. Exam performed portable in patient room. A preliminary report was called and/or faxed to Vicki BANEGAS. VL/Venous Duplex US - Benedicto Extrem Interpretation Summary Acute deep vein thrombosis is noted in the right soleus vein, peroneal vein. Deep veins of the left lower extremity are patent and compressible segmentally. There is no evidence of left lower extremity deep vein thrombosis. The bilateral great saphenous vei ns appear patent and compressible segmentally. Ordering Physician: Kyle Ferguson Referring Physician: Adrián Mckee MD Performed By: Helen Salinas RVT
[2023-08-01 23:50] VITALS: BP 147/77; PULSE 90; RESP 14; TEMP 36.8; O2SAT 98
[2023-08-01 23:51] VITALS: BMI 25.4
[2023-08-02] MEDS: 0.9% Normal Saline (1000mL) 1,000 ML 100 ML IV ×2 (00:07→11:35)
[2023-08-02] MEDS: 0.9% Saline Lock 10 ML Syringe IV (00:41)
[2023-08-02 03:15] VITALS: O2SAT 98
--- NOTE | 2023-08-02 03:35 | ECHOD_ITS ---
Reason For Study: CHF Procedure This was a 2D Doppler, Color Flow transthoracic echocardiogram. Myocardial strain analysis was performed in this exam to aid in the assessment of cardiac function. Exam performed portable in patient room. Left Ventricle Normal LV size. The estimated ejection fraction is 65 %. No evidence for diastolic dysfunction. No regional wall motion abnormalities noted. Right Ventricle Normal RV size. Normal systolic function. Atria Normal left atrium. Normal right atrium. No doppler evidence for ASD. Mitral Valve There is no mitral valve stenosis. No mitral valve insufficiency. 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 Trivial tricuspid valve insufficiency. Unable to estimate RV systolic pressure due to insufficient tricuspid regurgitant envelope. Aortic Valve Trisinus/trileaflet aortic valve. There is no aortic stenosis. No aortic valve insufficiency. Pulmonic Valve There is no pulmonic valvular stenosis. No pulmonic valve insufficiency. Great Vessels Normal aortic root. Pericardium/Pleural No pericardial effusion. MMode/2D Measurements & Calculations LVIDd: 4.1 cm IVSd: 1.2 cm Ao root diam: 3.1 cm LVIDs: 2.3 cm LVPWd: 0.99 cm LA dimension: 3.4 cm RVDd: 3.4 cm FS: 43.0 % LAV(MOD-bp): 34.9 ml LA A4 area: 13.0 cm2 RA A4 area: 14.1 cm2 LAV(MOD-bp) Indexed: 18.9 ml/m2 LAV(MOD-sp2): 37.9 ml LAV(MOD-sp4): 28.9 ml TAPSE: 1.9 cm Time Measurements MV dec time: 0.19 sec Doppler Measurements & Calculations MV E max wale: 83.1 cm/sec Lat Peak E' Wale: 16.9 cm/sec Med Peak E' Wale: 10.2 cm/sec MV A max wale: 86.2 cm/sec E/E' lat: 4.9 E/E' med: 8.2 MV E/A: 0.96 MV V2 max: 105.1 cm/sec MV P1/2t max wale: 102.0 cm/sec Ao V2 max: 139.9 cm/sec MV max P.4 mmHg MV P1/2t: 67.8 msec Ao max P.9 mmHg MV V2 mean: 68.1 cm/sec Ao V2 mean: 98.8 cm/sec MV mean P.1 mmHg MV dec slope: 440.5 cm/sec2 Ao mean P.5 mmHg MV V2 VTI: 22.0 cm MVA(P1/2t): 3.2 cm2 Ao V2 VTI: 30.4 cm AV (velocity ratio): 1.00 LV V1 max: 146.9 cm/sec PA V2 max: 114.4 cm/sec TR max wale: 300.0 cm/sec LV V1 max P.6 mmHg PA V2 mean: 79.2 cm/sec TR max P.0 mmHg LV V1 mean P.7 mmHg LV V1 mean: 101.6 cm/sec LV V1 VTI: 30.4 cm ECHO/Echo Complete Interpretation Summary The estimated ejection fraction is 65 %. No evidence for diastolic dysfunction. Ordering Physician: Kyle Ferguson Referring Physician: Adrián Mckee Performed By: Josue Yuan RCS
[2023-08-02 05:15] VITALS: BP 124/70; PULSE 75; RESP 16; TEMP 36.8; O2SAT 97
[2023-08-02 06:00] VITALS: BMI 25.4
[2023-08-02 06:53] LABS: Absolute Lymphocyte Count 0.92 X10^3/uL (0.83-4.51); Absolute Neutrophil Count 3.3 X10^3/uL (2.0-7.7); Basophil# 0.02 X10^3/uL; Basophil% 0.4 % (0-1); Eosinophil# 0.21 X10^3/uL; Eosinophils% 4.1 % (0-5); Hematocrit 29.3 % (37-47); Hemoglobin 9.2 g/dL (12.0-15.0); Lymphocyte # 0.92 X10^3/ul (0.83-4.51); Lymphocyte % 17.9 % (19-41); Mean Corp Hgb Conc 31.4 g/dL (32-36); Mean Corpuscular Hgb 27.3 pg (27.0-32.0); Mean Corpuscular Volume 86.9 fL (81-99); Mean Platelet Vol. 9.6 fl (6.2-12.0); Monocyte# 0.62 X10^3/uL; Monocyte% 12.1 % (0-10); NRBC Flagged by Analyzer 0 % (0-5); Neutrophil # 3.33 X10^3/uL (2.7-7.7); Neutrophil % 64.7 % (47-70); Platelet Count 216 K/mm3 (150-450); RBC Distribution Width CV 16.2 % (11.6-14.6); RBC Distribution Width SD 51.2 fl (35.1-43.9); Red Blood Count 3.37 M/mm3 (4.2-5.4); White Blood Count 5.1 K/mm3 (4.4-11.0)
[2023-08-02 07:39] LABS: ALB/GLOB Ratio 0.9 RATIO (0.9-2.4); AST(SGOT) 17 U/L (15-37); Alanine Aminotransfer ALT/SGPT 7 U/L (13-56); Albumin, Serum 2.8 g/dL (3.2-5.0); Alkaline Phosphatase 110 U/L (45-117); Anion Gap 5 (5-15); BUN 19 mg/dL (7-18); BUN/Creat Ratio 13.4 RATIO (10-20); Calcium,Total 8.3 mg/dL (8.5-10.1); Chloride 116 mmol/L (98-107); Creatinine, Serum 1.42 mg/dL (0.55-1.02); EST Glomerular Filtration Rate 39 mL/min (>60); Est Glom Filt Rate - Afr Amer 47 mL/min (>60); Estimated Creatinine Clearance 35.34 ml/min; Globulin 3.1 g/dL (2.2-4.2); Glucose 93 mg/dL (74-106); Potassium 3.9 mmol/L (3.5-5.1); Protein, Total 5.9 g/dL (6.4-8.2); Sodium Level 142 mmol/L (136-145); Thyroid Stim Hormone (TSH) 3.41 uIU/mL (0.358-3.74)
[2023-08-02 07:52] VITALS: O2SAT 95
--- NOTE | 2023-08-02 08:57 | US_ITS ---
STUDY: RENAL ULTRASOUND - COMPLETE REASON FOR EXAM: Female, 73 years old. Concern for R sided hydro on CT TECHNIQUE: Ultrasound evaluation of the kidneys was performed with real-time and static dugan-scale imaging. COMPARISON: Comparison made with prior CT scan of the chest dated August 01, 2023. FINDINGS: RIGHT KIDNEY: Normal location of the right kidney, which is normal in size. The right kidney measures 10.9 cm x 6 cm x 4.8 cm. There is a normal cortex of the right kidney. The renal cortex measures 1.4 cm. There is no right renal mass or cyst. There are no right renal calculi. Mild to moderate degree of right hydronephrosis. DISTAL RIGHT URETER: There is non-visualization of the distal right ureter. There is no demonstrated right ureterovesical junction calculus. There is a visualized right ureteral jet. LEFT KIDNEY: Normal location of the left kidney, which is normal in size. The left kidney measures 11.2 cm x 5.3 cm x 4.7 cm. There is a normal cortex of the left kidney. The renal cortex measures 1.2 cm. There is no left renal mass or cyst. There are no left renal calculi. There is no left hydronephrosis. DISTAL LEFT URETER: There is non-visualization of the distal left ureter. There is no demonstrated left ureterovesical junction calculus. There is a visualized left ureteral jet. BLADDER: The distended urinary bladder has a volume of 382 ml. The empty urinary bladder has a volume of 201 ml. There is a normal wall thickness of the distended urinary bladder. There is no demonstrated mass within the urinary bladder. There are no demonstrated bladder calculi. US/Kidney and Bladder IMPRESSION: Mild to moderate degree of right hydronephrosis. Moderate amount of postvoid residual. Electronically Signed: Doron Doyle MD at 12:28 EST ,
[2023-08-02] MEDS: Enoxaparin 80 MG/0.8 ML Syringe SC ×2 (09:06→22:00)
[2023-08-02] MEDS: Loratadine 10 MG Tablet PO (09:06)
[2023-08-02] MEDS: Pantoprazole Sodium 40 MG Tablet PO (09:06)
[2023-08-02] MEDS: amLODIPine 5 MG Tablet PO (09:06)
[2023-08-02 11:00] VITALS: BP 124/76; PULSE 84; RESP 16; TEMP 36.3; O2SAT 100
--- NOTE | 2023-08-02 11:00 | CASEMGMT ---
[place] Face to Face with patient for initial transition planning/care coordination assessment. RN CM introduced self and role at [facility]. Patient lying in bed, alert and oriented. Patient willing to participate in assessment and is able to answer all questions appropriately. Care providers, pharmacy, and demographics verified. Patient wishes to discharge home, denies need for home health at this time. Patient states she has no further needs or concerns at this time. CM to follow for discharge planning needs that may arise. PCP: Rafi Specialists: Pato, oncologist; [facility] Preferred Pharmacy: [facility] Insurance: [employer] [facility] Prescription Benefit: yes Living Will/HPOA: yes, daughter Jocelynn Agrawal LNOK: daughter Living Arrangements: Patient lives alone in a [place] with 12 steps and railing. Patient states she is independent and able to ambulate stairs. Transportation: self, neighbor DME/HHC: Patient has BSC, grab bars, walker at home. No previous SNF. [facility] previously. Will monitor for hoe oxygen, no preferences for DME. Disposition Plan: Patient to discharge home with family support and follow-up plans in place. WIll monitor for home oxygen Helen WALSH, RN, CM
[2023-08-02] MEDS: Flu Vacc QS2023-24(65YR UP)/PF 240 MCG/0.7 ML Syringe IM (12:48)
--- NOTE | 2023-08-02 15:56 | PN.HOSP_ITS ---
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) Other pulmonary embolism without acute cor pulmonale (08/01/23) Acute cystitis without hematuria (08/01/23) Subjective Subjective Still feeling fatigued and short of breath, also reports problems with not feeling like she empties her bladder but also having urinary incontinence Objective Data Objective Data Vital Signs: Vital Signs Temp Pulse Resp BP Pulse Ox O2 Del Method 97.4 F L 84 16 124/76 H 100 Room Air 08/02/23 11:00 08/02/23 11:00 08/02/23 11:00 08/02/23 11:00 08/02/23 11:00 08/02/23 11:00 Oxygen Delivery Method Room Air Weight: 73.7 kg Body Mass Index (BMI) 25.4 Intake & Output: Intake and Output for Last 24 Hours 07/31/23 08/01/23 08/02/23 23:59 23:59 23:59 Intake Total 1050 / 1050 1440 / 1440 Balance 1050 / 1050 1440 / 1440 Lab / Micro Data 08/02/23 06:10 08/02/23 06:10 Labs: Laboratory Results - last 24 hr 08/01/23 18:30: WBC 7.2, RBC 3.93 L, Hgb 10.6 L, Hct 33.8 L, MCV 86.0, MCH 27.0, MCHC 31.4 L, RDW Std Deviation 49.1 H, RDW Coeff of Ismael 15.8 H, Plt Count 243, MPV 9.1, Immature Gran % (Auto) 1.100 H, Neut % (Auto) 66.1, Lymph % (Auto) 18.4 L, [place] % (Auto) 10.4 H, Eos % (Auto) 3.6, Baso % (Auto) 0.4, Absolute Neuts (auto) 4.8, Absolute Lymphs (auto) 1.33, Nucleated RBC % 0, Sodium 137, Potassium 4.1, Chloride 108 H, Carbon Dioxide 22.0, Anion Gap 7, BUN 22 H, Creatinine 1.48 H, Estim Creat Clear Calc 33.90, Est GFR (MDRD) Af Amer 45 L, Est GFR (MDRD) Non-Af 37 L, BUN/Creatinine Ratio 14.9, Glucose 110 H, Calcium 9.2, Troponin I High Sens 8 08/01/23 20:29: Urine Color Yellow, Urine Clarity Sl. Cloudy, Urine pH 6.0, Ur Specific [place] 1.010, Urine Protein 30 H, Urine Glucose (UA) Normal, Urine Ketones Negative, Urine Occult Blood 10 H, Urine Nitrite Negative, Urine Bilirubin Negative, Urine Urobilinogen Normal, Ur Leukocyte Esterase 500 H, Urine RBC 0 SEEN, Urine WBC 50-100 SEEN, Ur Squamous Epith Cells 0-5 SEEN, Urine Bacteria 0 SEEN, Urine Mucus 0 SEEN, Urine Yeast 1+ 08/02/23 06:10: WBC 5.1, RBC 3.37 L, Hgb 9.2 L, Hct 29.3 L, MCV 86.9, MCH 27.3, MCHC 31.4 L, RDW Std Deviation 51.2 H, RDW Coeff of Ismael 16.2 H, Plt Count 216, MPV 9.6, Immature Gran % (Auto) 0.800, Neut % (Auto) 64.7, Lymph % (Auto) 17.9 L , [place] % (Auto) 12.1 H, Eos % (Auto) 4.1, Baso % (Auto) 0.4, Absolute Neuts (auto) 3.3, Absolute Lymphs (auto) 0.92, Nucleated RBC % 0, Sodium 142, Potassium 3.9, Chloride 116 H, Carbon Dioxide 21.0, Anion Gap 5, BUN 19 H, Creatinine 1.42 H, Estim Creat Clear Calc 35.34, Est GFR (MDRD) Af Amer 47 L, Est GFR (MDRD) Non-Af 39 L, BUN/Creatinine Ratio 13.4, Glucose 93, Calcium 8.3 L , Total Bilirubin 0.10 L, AST 17, ALT 7 L, Alkaline Phosphatase 110, Total Protein 5.9 L, Albumin 2.8 L, Globulin 3.1, Albumin/Globulin Ratio 0.9, TSH 3.41 Micro: Microbiology 08/01/23 20:29 Urine, Clean Catch Urine Culture - Preliminary Culture exhibits no growth. 08/01/23 18:39 Nasal Secretion SARS-CoV-2 Antigen (Rapid) - Final Radiography Diagnostic Testing: Radiology Impression Chest X-Ray 08/01/23 18:45 IMPRESSION: Atelectasis/scarring in the right lower lobe with a suspected new mild opacity. Findings raise the possibility of infection. Electronically Signed: Jonny Goldstein MD at 19:48 EST , Chest CTA 08/01/23 19:42 IMPRESSION: undefined ADDENDUM: 08/01/232045 IMPRESSION: undefined Venous Doppler Study 08/01/23 22:04 Interpretation Summary Acute deep vein thrombosis is noted in the right soleus vein, peroneal vein. Deep veins of the left lower extremity are patent and compressible segmentally. There is no evidence of left lower extremity deep vein thrombosis. The bilateral great saphenous veins appear patent and compressible segmentally. Ordering Physician: Kyle Ferguson Referring Physician: Adrián Mckee MD Performed By: Helen Salinas RVT Echocardiogram 08/02/23 03:35 Interpretation Summary The estimated ejection fraction is 65 %. No evidence for diastolic dysfunction. Ordering Physician: Kyle Ferguson Referring Physician: Adrián Mckee Performed By: Josue Yuan [facility] Renal Ultrasound 08/02/23 08:57 IMPRESSION: Mild to moderate degree of right hydronephrosis. Moderate amount of postvoid residual. Electronically Signed: Doron Doyle MD at 12:28 EST , Physical Exam Narrative General: Alert, oriented, no apparent distress HEENT: Atraumatic, normocephalic Eyes: Anicteric, normal conjunctiva, extraocular movements grossly intact Neck: Supple Respiratory: Clear to auscultation bilaterally, normal respiratory effort Cardiovascular: Regular rate and rhythm GI: Soft, nontender, nondistended Extremities: No edema Musculoskeletal: Moving all extremities Neuro: No overt focal neurological deficits Skin: No rashes appreciated Psych: Cooperative Assessment & Plan Assessment/Plan (1) Adenocarcinoma of cecum: (2) Bilateral pulmonary embolism: (3) S/P colectomy: (4) Urinary retention: PLAN: Plan #Bilateral central pulmonary emboli - Admit to PCU. Continue with full dose Lovenox 80 mg SQ twice daily begun in the ER. Check bilateral lower extremity ultrasound to evaluate for residual clot burden. Give Tylenol as needed for fever or pain. -08/02: Patient does have right lower extremity DVT, tolerating subcu Lovenox at this time, short of breath but O2 saturations maintaining #Lower urinary tract symptoms and right-sided hydronephrosis - Continue IV Rocephin begun in the ER and await culture and sensitivity data. -08/02: 0 bacteria in UA and culture no growth to date, patient has had multiple recent UTIs however. On CT of chest it was noted she may have right-sided hydronephrosis so renal ultrasound obtained which showed mild to moderate degree of right hydronephrosis and moderate postvoid residual. Patient did report she has been having the feeling that its been difficult to empty her bladder but then she also has urinary incontinence. Will straight cath x1, start tamsulosin, will attempt post void in the morning, if retaining may need Dennis and follow-up with urology outpatient. Will obtain CT abdomen to assess for any extrinsic compression or other potential cause for patient's hydronephrosis #[id number] -Supportive care -See above #History of adenocarcinoma of the colon; status post laparoscopic colectomy a few months ago along with chronic ileostomy compounding #1 and #2 - There is a relatively high index of suspicion for a paraneoplastic component to the cause of #1. Patient was informed by her surgeon because of her recent surgery a few months ago, her decreased mobility and her cancer she was likely to have VTE. #Essential hypertension - Continue home medications as previous. Give IV hydralazine as needed for systolic blood pressure greater than 160 mmHg. Total time: Approximately 35 minutes. Charges/Coding Visit Charges Inpatient E&M: 86092 Subs Hosp L2
--- NOTE | 2023-08-02 15:56 | CT_ITS ---
STUDY: CT ABDOMEN AND PELVIS WITHOUT CONTRAST REASON FOR EXAM: Female, 73 years old. R hydronephrosis US unrevealing RADIATION DOSAGE (If Supplied By Facility): CTDIvol = ( 6.79 ) mGy, DLP = ( 333.98 ) mGycm TECHNIQUE: Transaxial images were obtained from the dome of the diaphragm to the symphysis pubis without oral contrast, and without intravenous contrast. Sagittal and coronal images were reconstructed. Individualized dose optimization techniques were used for this CT. COMPARISON: May 29, 2023. FINDINGS: Right lower lobe 2.3 cm nodular density, larger than on previous study. The visualized portions of the heart are within normal limits. Normal liver. Normal gallbladder and extrahepatic biliary system. Normal spleen. Normal pancreas. Normal bilateral adrenal glands. Right hydronephrosis. Bilateral hydroureters. Normal visualized stomach. Normal small intestine. Diverticulosis of the colon. Prior colonic surgery. The appendix is not visualized. Normal abdominal aorta. Normal inferior vena cava. Normal retroperitoneum. Mild wall thickening of the urinary bladder. Mild presacral fluid/edema. There is an ileostomy through the right anterior abdominal wall. Normal osseous structures. CT/Abdomen/Pelvis without Cont IMPRESSION: Enlarging right lower lobe pulmonary nodular density. Further evaluation is needed. Right hydronephrosis. Bilateral hydroureters. Mild wall thickening of the urinary bladder. Diverticulosis of the colon. Prior colonic surgery. Mild presacral fluid/edema. Electronically Signed: Christiano Hooks DO at 19:18 EST Reading Location ID and State: [facility] / [place] Tel [phone], Service support ,
[2023-08-02] MEDS: Loperamide 2 MG Capsule PO (16:44)
[2023-08-02] MEDS: Tamsulosin HCl 0.4 MG Capsule PO (17:58)
[2023-08-02 18:01] VITALS: BP 154/74; PULSE 86; RESP 16; TEMP 36.3; O2SAT 99
[2023-08-02] MEDS: Ceftriaxone 1 GM/50 ML BAG IV (21:59)
[2023-08-03] VITALS: BP 148/75; PULSE 89; RESP 14; TEMP 36.6; O2SAT 99
[2023-08-03 05:00] VITALS: BMI 25.7
[2023-08-03 06:00] VITALS: BP 131/66; PULSE 85; RESP 16; TEMP 36.4; O2SAT 98
[2023-08-03 06:10] LABS: Absolute Lymphocyte Count 0.47 X10^3/uL (0.83-4.51); Absolute Neutrophil Count 2.3 X10^3/uL (2.0-7.7); Basophil# 0.02 X10^3/uL; Basophil% 0.6 % (0-1); Eosinophil# 0.24 X10^3/uL; Hemoglobin 9.1 g/dL (12.0-15.0); Lymphocyte # 0.47 X10^3/ul (0.83-4.51); Lymphocyte % 13.7 % (19-41); Mean Corp Hgb Conc 30.3 g/dL (32-36); Mean Corpuscular Hgb 27.1 pg (27.0-32.0); Mean Corpuscular Volume 89.3 fL (81-99); Mean Platelet Vol. 9.1 fl (6.2-12.0); Monocyte# 0.43 X10^3/uL; Monocyte% 12.5 % (0-10); NRBC Flagged by Analyzer 0 % (0-5); Neutrophil # 2.26 X10^3/uL (2.7-7.7); Neutrophil % 65.6 % (47-70); POSITIVE DIFFERENTIAL YES; Platelet Count 218 K/mm3 (150-450); RBC Distribution Width SD 51.7 fl (35.1-43.9); Red Blood Count 3.36 M/mm3 (4.2-5.4); White Blood Count 3.4 K/mm3 (4.4-11.0)
[2023-08-03 06:14] LABS: Differential Indicated SCAN CRITERIA MET
[2023-08-03 06:31] LABS: Differential Comment SCANNED
[2023-08-03 06:46] LABS: Anion Gap 4 (5-15); BUN 13 mg/dL (7-18); BUN/Creat Ratio 10.2 RATIO (10-20); Calcium,Total 8.7 mg/dL (8.5-10.1); Chloride 115 mmol/L (98-107); Creatinine, Serum 1.27 mg/dL (0.55-1.02); EST Glomerular Filtration Rate 44 mL/min (>60); Est Glom Filt Rate - Afr Amer 53 mL/min (>60); Estimated Creatinine Clearance 39.51 ml/min; Glucose 95 mg/dL (74-106); Potassium 4.1 mmol/L (3.5-5.1); Sodium Level 141 mmol/L (136-145)
[2023-08-03 08:15] VITALS: O2SAT 96
[2023-08-03 08:49] VITALS: BP 135/70; PULSE 84; RESP 14; TEMP 36.8; O2SAT 98
[2023-08-03] MEDS: Pantoprazole Sodium 40 MG Tablet PO (08:50)
[2023-08-03] MEDS: amLODIPine 5 MG Tablet PO (08:50)
[2023-08-03] MEDS: Loratadine 10 MG Tablet PO (08:51)
[2023-08-03] MEDS: Enoxaparin 80 MG/0.8 ML Syringe SC (08:51)
--- NOTE | 2023-08-03 13:55 | DCINST_ITS ---
Discharge Instructions Diet Discharge Diet: No restrictions Activity Discharge Activity: - (Increase activity as tolerated) Follow Up Care Test Results: Test results from this visit will be discussed in further detail at your follow- up appointment, if applicable. Discharge Plan Admission Admit Date/Time: 08/01/23 22:02 Primary Reason for Your Visit: Fatigue, shortness of breath Attending Provider: Snow Millard Primary Care Provider: Adrián Mckee Consulting Providers: Kyle Ferguson Instructions Patient Instructions: DVT/PE Discharge instruction sheet Additional Instructions / Restrictions: DISCHARGE INSTRUCTIONS PLEASE READ *Please take this with you to your next doctors appointment* -You are found to have blood clots in your lungs, you will be discharged on Eliquis and will take 10 mg twice daily for 7 days followed by 5 mg twice daily thereafter -You were retaining urine and suspect this is also why you had repeat urinary tract infections. After draining your bladder you are subsequently able to empty your bladder yourself however did have some difficulty but did not require placement of Dennis catheter. You will be discharged on a medication called tamsulosin and you will need to follow-up with urology next week as previously s cheduled -Additionally please follow with your cancer doctor, Dr. Whyte, upon discharge -Please call your primary care provider's office upon discharge to schedule a hospital follow up within 1 week. -For any concerning signs or symptoms please call 911 or proceed to the nearest emergency department Discharge Orders/Prescriptions Prescriptions: New Eliquis DVT-PE Treat 30D Start 5 mg (74 tabs) tablets,dose pack 5 mg PO BID Qty: 74 0RF tamsulosin 0.4 mg Capsule 0.4 mg PO DAILY 30 Days Qty: 30 0RF Continued omeprazole 20 MG capsule 40 mg PO DAILY amlodipine 5 mg tablet 5 mg PO DAILY 30 Days Qty: 0 0RF Rx Instructions: Hold for SBP less than 130 mmHg loperamide 2 mg capsule 2 mg PO Q6H PRN (Reason: loose stool) loratadine [Claritin] 10 mg tablet 10 mg PO DAILY Referrals / Follow Up: Adrián Mckee MD [Primary Care Provider] - 08/09/23 2:10 pm (Appointment is with ) Disposition Disposition (needs filled in before D/C Order can be placed): Home, Self Care
[2023-08-03 13:58] VITALS: BP 125/76; PULSE 105; RESP 14; TEMP 36.6; O2SAT 100
[2023-08-03 13:59] VITALS: O2SAT 100
--- NOTE | 2023-08-03 14:00 | PCM.DC.SUM ---
Providers Date of Admission: 08/01/23 Date of Discharge: 08/03/23 Primary Care Physician: Dr. Adrián Mckee MD Reason For Visit: BILATERAL CENTRAL PE Diagnosis Discharge Diagnosis (1) Adenocarcinoma of cecum: Status: Resolved Code(s): C18.0 - Malignant neoplasm of cecum (2) Bilateral pulmonary embolism: Status: Acute Code(s): I26.99 - Other pulmonary embolism without acute cor pulmonale (3) S/P colectomy: Status: Chronic Code(s): Z90.49 - Acquired absence of other specified parts of digestive tract (4) Urinary retention: Status: Acute Code(s): R33.9 - Retention of urine, unspecified Plan #Bilateral central pulmonary emboli #Lower urinary tract symptoms and urinary retention w/ bilateral hydroureter #CKDIIIb #History of adenocarcinoma of the colon; status post laparoscopic colectomy a few months ago along with chronic ileostomy compounding #1 and #2 #Essential hypertension Medications at Discharge Home Medications omeprazole 20 mg capsule,delayed release 40 mg PO DAILY ACID REFLUX 01/12/17 amlodipine 5 mg tablet 5 mg PO DAILY BLOOD PRESSURE 30 days #0 tabs 06/02/23 loperamide 2 mg capsule 2 mg PO Q6H PRN loose stool 08/01/23 loratadine 10 mg tablet (Claritin) 10 mg PO DAILY allergies 08/01/23 apixaban 5 mg (74 tabs) tablets in a dose pack (Eliquis DVT-PE Treat 30D Start) 5 mg PO BID #74 tabs 08/03/23 tamsulosin 0.4 mg capsule 0.4 mg PO DAILY 30 days #30 caps 08/03/23 Hospital Course Summary of Care Provided Minutes Spent on Discharge: 35 Hospital Course: SANTI NAM, is a 73 F with a past medical history of essential hypertension, previous history of tobacco abuse, GERD, 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 ER complaining of shortness of breath. Mrs. Nam reports her symptoms began approximately 4 days prior to admission with dyspnea on exertion that progressed to shortness of breath at rest. She was found to have bilateral central pulmonary emboli and continued on full dose Lovenox twice daily. Was found to have a DVT on lower extremity ultrasound but no heart strain on echocardiogram. Patient had symptoms she thought were consistent with another UTI however UA without bacteria and urine culture negative but patient has had recent recurrent UTIs and on CT of chest it showed right-sided hydronephrosis. Kidney ultrasound showed postvoid residual with some mild to moderate right-sided hydronephrosis and patient did report since her bowel surgery she has been having a hard time emptying her bladder but also has incontinence. Straight cath x1 due to retaining and CT abdomen obtained to see given her cancer if there is any extrinsic or other abdominal etiology affecting the ureter. CT showed thickening of the bladder and bilateral hydroureter with right-sided hydronephrosis so suspect this is all due to retention, patient had postvoid checked the following day after she was successfully straight cath and with compensatory mechanisms (coughing and pushing) patient did not retain any urine. She was started on tamsulosin and she already has an appointment with urology at [facility] next week. Patient to be discharged on Eliquis 10 twice daily for 7 days followed by decreased to 5 twice daily thereafter. Also advised to follow-up with her cancer doctor on discharge. Physical Exam Narrative General: Alert, oriented, no apparent distress HEENT: Atraumatic, normocephalic Eyes: Anicteric, normal conjunctiva, extraocular movements grossly intact Neck: Supple Respiratory: Clear to auscultation bilaterally, normal respiratory effort Cardiovascular: Regular rate and rhythm GI: Soft, nontender, nondistended Extremities: No edema Musculoskeletal: Moving all extremities Neuro: No overt focal neurological deficits Skin: No rashes appreciated Psych: Cooperative Weight / BMI Weight Weight: 74.3 kg Body Mass Index (BMI) 25.7 ABG / Lab / Microbiology Data 08/03/23 05:35 08/03/23 05:35 Laboratory: Laboratory Results - last 24 hr 08/03/23 05:35: WBC 3.4 L, RBC 3.36 L, Hgb 9.1 L, Hct 30.0 L, MCV 89.3, MCH 27.1, MCHC 30.3 L, RDW Std Deviation 51.7 H, RDW Coeff of Ismael 16.0 H, Plt Count 218, MPV 9.1, Immature Gran % (Auto) 0.600, Neut % (Auto) 65.6, Lymph % (Auto) 13.7 L, Baldwin % (Auto) 12.5 H, Eos % (Auto) 7.0 H, Baso % (Auto) 0.6, Absolute Neuts (auto) 2.3, Absolute Lymphs (auto) 0.47 L, Nucleated RBC % 0, Differential Comment SCANNED, Diff Path Review January, Sodium 141, Potassium 4.1, Chloride 115 H, Carbon Dioxide 22.0, Anion Gap 4 L, BUN 13, Creatinine 1.27 H, Estim Creat Clear Calc 39.51, Est GFR (MDRD) Af Amer 53 L, Est GFR (MDRD) Non-Af 44 L, BUN/Creatinine Ratio 10.2, Glucose 95, Calcium 8.7 Microbiology: Microbiology 08/01/23 20:29 Urine, Clean Catch Urine Culture - Preliminary Yeast Like Organism 08/01/23 18:39 Nasal Secretion SARS-CoV-2 Antigen (Rapid) - Final Radiography Diagnostic Testing: Radiology Impression Venous Doppler Study 08/01/23 22:04 Interpretation Summary Acute deep vein thrombosis is noted in the right soleus vein, peroneal vein. Deep veins of the left lower extremity are patent and compressible segmentally. There is no evidence of left lower extremity deep vein thrombosis. The bilateral great saphenous veins appear patent and compressible segmentally. Ordering Physician: Kyle Ferguson Referring Physician: Adrián Mckee MD Performed By: Helen Salinas RVT Echocardiogram 08/02/23 03:35 Interpretation Summary The estimated ejection fraction is 65 %. No evidence for diastolic dysfunction. Ordering Physician: Kyle Ferguson Referring Physician: Adrián Mckee Performed By: Josue Yuan RCS Abdomen/Pelvis CT 08/02/23 15:56 IMPRESSION: Enlarging right lower lobe pulmonary nodular density. Further evaluation is needed. Right hydronephrosis. Bilateral hydroureters. Mild wall thickening of the urinary bladder. Diverticulosis of the colon. Prior colonic surgery. Mild presacral fluid/edema. Electronically Signed: Christiano Hooks DO at 19:18 EST Reading Location ID and State: [facility] / [place] Tel [phone], Service support , D/C Instructions Discharge Diet: No restrictions Meaningful Use Info Meaningful Use Diagnoses (Choose all that apply): VTE VTE Anticoag overlap given w/in hospital stay or rx'd at dc?: No Pt receive overlap for 5 days?: No Reason overlap not ordered, prescribed, or given for 5 days: Treatment Not Indicated Discharge Plan Admission Admit Date/Time: 08/01/23 22:02 Primary Reason for Your Visit: Fatigue, shortness of breath Attending Provider: Snow Millard Primary Care Provider: Adrián Mckee Consulting Providers: Kyle Ferguson Instructions Patient Instructions: DVT/PE Discharge instruction sheet Additional Instructions / Restrictions: DISCHARGE INSTRUCTIONS PLEASE READ *Please take this with you to your next doctors appointment* -You are found to have blood clots in your lungs, you will be discharged on Eliquis and will take 10 mg twice daily for 7 days followed by 5 mg twice daily thereafter -You were retaining urine and suspect this is also why you had repeat urinary tract infections. After draining your bladder you are subsequently able to empty your bladder yourself however did have some difficulty but did not require placement of Dennis catheter. You will be discharged on a medication called tamsulosin and you will need to follow-up with urology next week as previously scheduled -Additionally please follow with your cancer doctor, Dr. Whyte, upon discharge -Please call your primary care provider's office upon discharge to schedule a hospital follow up within 1 week. -For any concerning signs or symptoms please call 911 or proceed to the nearest emergency department Discharge Orders/Prescriptions Prescriptions: New Eliquis DVT-PE Treat 30D Start 5 mg (74 tabs) tablets,dose pack 5 mg PO BID Qty: 74 0RF tamsulosin 0.4 mg Capsule 0.4 mg PO DAILY 30 Days Qty: 30 0RF Continued omeprazole 20 MG capsule 40 mg PO DAILY amlodipine 5 mg tablet 5 mg PO DAILY 30 Days Qty: 0 0RF Rx Instructions: Hold for SBP less than 130 mmHg loperamide 2 mg capsule 2 mg PO Q6H PRN (Reason: loose stool) loratadine [Claritin] 10 mg tablet 10 mg PO DAILY Referrals / Follow Up: Adrián Mckee MD [Primary Care Provider] - 08/09/23 2:10 pm (Appointment is with ) Disposition Disposition (needs filled in before D/C Order can be placed): Home, Self Care Charges/Coding Visit Charges Inpatient E&M: 78783 Disch Hosp >30min
--- NOTE | 2023-08-03 14:40 | PHA.DC_ITS ---
Pharmacy [facility] Service has performed discharge medication reconciliation and counseling for this patient. The patient's discharge medication list was reviewed for discrepancies and discrepancies were resolved. The patient was counseled on the following discharge medications and changes in medications for homegoing were reviewed. The Reason for Use, instructions for use, and potential side effects were reviewed for all new medications. The patient's questions regarding all of their medications were answered. The patient was able to verbally demonstrate an understanding of their discharge medications. The patient was counselled on new medications Eliquis and Tamsulosin by pharmacy operations manager Antonio. Medications at Discharge Home Medications omeprazole 20 mg capsule,delayed release 40 mg PO DAILY ACID REFLUX 01/12/17 amlodipine 5 mg tablet 5 mg PO DAILY BLOOD PRESSURE 30 days #0 tabs 06/02/23 loperamide 2 mg capsule 2 mg PO Q6H PRN loose stool 08/01/23 loratadine 10 mg tablet (Claritin) 10 mg PO DAILY allergies 08/01/23 apixaban 5 mg (74 tabs) tablets in a dose pack (Eliquis DVT-PE Treat 30D Start) 5 mg PO BID #74 tabs 08/03/23 tamsulosin 0.4 mg capsule 0.4 mg PO DAILY 30 days #30 caps 08/03/23
--- NOTE | 2023-08-03 14:46 | CASEMGMT ---
Patient has order for discharge. Patient discharging on Eliquis. BASSAM DEL VALLE called [facility] to verify copay, cost is $535.14 and they will not have any medication till Sunday. BASSAM DEL VALLE requested [facility] transfer to [facility]. BASSAM DEL VALLE in and updated patient, will provide savings card. BASSAM DEL VALLE instructed patient follow-up with PCP regarding Eliquis prescription. Patient voiced understanding. Patient denied further needs at discharge. Patient had no further questions or concerns at this time.
[2023-08-07 09:44] LABS: Pathologist Review Reviewed
== END 2023-08-03 16:30 | disposition home or self-care (01) | DRG 176 ==
LOC: ED 21:27 → PCU 22:02
PROVIDERS: Admitting Provider Internal Medicine; Emergency Provider Emergency Medicine; PCP Family Medicine; Visit Provider Internal Medicine
DX: I26.99 Other pulmonary embolism without acute cor pulmonale (principal); N13.30 Unspecified hydronephrosis; C18.0 Malignant neoplasm of cecum; N13.4 Hydroureter; N18.32 Chronic kidney disease, stage 3b; Z93.2 Ileostomy status; I12.9 Hypertensive chronic kidney disease with stage 1 through stage 4 chronic kidney disease, or unspecified chronic kidney disease; Z80.8 Family history of malignant neoplasm of other organs or systems; Z80.3 Family history of malignant neoplasm of breast; Z87.891 Personal history of nicotine dependence; Z79.01 Long term (current) use of anticoagulants; R33.9 Retention of urine, unspecified; Z90.49 Acquired absence of other specified parts of digestive tract
CPT/HCPCS: 36415; 71045; 71275; 74176; 76770; 80048; 80053; 81001; 84443; 84484; 85025; 87086; 87088; 87811; 93005; 93306; 93970; 94668; 94760; 99285; J7030; Q9967; 90662; A4216

== ENCOUNTER 2023-09-11 14:00 | Inpatient (IN) | payer MEDICARE, OTHER, SELFPAY ==
[2023-09-11] VITALS (26 sets, daily range): BP systolic 121–151; BP diastolic 58–75; PULSE 94–125; RESP 13–27; TEMP 36.5–38.7; O2SAT 94–100; BMI 26.3; BMI 27.3
--- NOTE | 2023-09-11 15:02 | EDS_ITS ---
HPI <PAYAL Oliver - Last Filed: 09/11/23 16:40> History of Present Illness Chief Complaint: Abd Pain Narrative Narrative: Patient is a 73-year-old female with history of hypertension, colon cancer is currently getting treated with chemotherapy last infusion was 1 week ago[address] Patient sees Dr. Barragan. Patient does have an ileostomy. Over the last 3 to 4 days, patient noticed that her urine was more cloudy. She then developed fevers, chills, did have 1 episode of nausea and vomiting. She did have a fever of 102 at home, secondary to her cancer diagnosis, she is here for evaluation. PFSH <PAYAL Oliver - Last Filed: 09/11/23 16:40> [facility] Medical History Acid reflux Adenocarcinoma of cecum Encounter for adjustment or management of vascular access device Peritoneal metastases s/p port placement Home Medications omeprazole 20 mg capsule,delayed release 40 mg PO DAILY ACID REFLUX 01/12/17 [History Last Taken 09/11/23] amlodipine 5 mg tablet 5 mg PO DAILY BLOOD PRESSURE 30 days #0 tabs 06/02/23 [Rx Last Taken 09/11/23] loperamide 2 mg capsule 2 mg PO Q6H PRN DIARRHEA 08/01/23 [History Last Taken 09/10/23] loratadine 10 mg tablet (Claritin) 10 mg PO DAILY ALLERGIES 08/01/23 [History Last Taken 09/11/23] apixaban 5 mg tablet (Eliquis) 5 mg PO BID BLOOD THINNER 09/11/23 [History Last Taken 09/11/23] magnesium oxide 400 mg PO DAILY SUPPLEMENT 09/11/23 [History Last Taken 09/10/23] metoclopramide HCl 10 mg tablet 10 mg PO Q6H PRN NAUSEA 09/11/23 [History Last Taken 09/11/23] Allergy/AdvReac Type Severity Reaction Status Date / Time No Known Allergies Allergy Verified 09/11/23 14:02 Family History Mother Hypertension Father Melanoma Brother Melanoma Aunt Breast cancer Surgical History History of bowel resection History of Hx of ileostomy S/P laparoscopic colectomy s/p port placement (~12/06/18) Social History Smoking Status: Former smoker alcohol intake: current alcohol intake frequency: holidays/special occasions only substance use type: does not use caffeine: Yes what type of physical activity do you participate in: walking and weight training frequency: daily seatbelt use: always do you feel safe at home: Yes additional social history: - [employer]-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 Positive for fever and chills, weakness Eyes: Negative for vision loss, vision change, double vision ENT: Negative for any sore throat, ear pain, congestion Cardiovascular: Negative for any chest pain, tightness, palpitations Respiratory: Negative for any cough, sputum production, hemoptysis, dyspnea, dyspnea on exertion, orthopnea Gastrointestinal: Negative for any abdominal pain, diarrhea, constipation, blood in stool, blood in vomit. Positive for nausea and vomiting : Negative for any urinary frequency, retention, blood in urine. Positive for dysuria, urinary frequency Muscle skeletal: Negative for any arthralgias, neck pain, back pain. Positive for myalgias Neurological: Negative for any headache, syncope, paresthesias, dizziness Skin: Negative for any rashes, lumps, itching, abrasions, lacerations Psychiatric: Negative for any depression, anxiety, stress, suicidal ideation, homicidal ideation Hematologic: Negative for any easy bruising, excessive bruising, easy bleeding Allergies: Negative for any eczema, hives, rash EXAM <PAYAL Oliver - Last Filed: 09/11/23 16:40> Physical Exam Narrative Exam Narrative: Vital signs reviewed. Patient is febrile here, tachycardic. Secondary the patient's history of chemo, last dose was 1 week ago, I do believe the patient is concerned for sepsis. Neutropenia. HEET: Head normocephalic atraumatic, TMs clear bilaterally. Posterior pharynx is clear, dry mucous membranes. Nares clear bilaterally. Neck: Supple with no lymphadenopathy or tenderness. No signs of meningismus. Cardiac: Tachycardic rate no murmurs gallops or rubs, equal peripheral pulses bilaterally. Respiratory: Lungs clear to auscultation bilaterally. No chest tenderness. Abdomen: Soft, nontender, nondistended. No abdominal bruit or pulsatile masses. No hepatosplenomegaly Extremities: No peripheral edema, no signs of gross trauma or deformity. Active full range of motion of all extremities. Neuro: Cranial nerves II through XII intact, no focal neurological deficits. Skin: Clean dry and intact with no rash, purpura, petechiae, vesicles or pustules. Backs/flank: No CVA tenderness, no midline spinal tenderness, no deformity. Psych: Normal mood and affect. No SI, HI or acute psychosis. Const Vital Signs: 09/11/23 14:02 09/11/23 15:14 09/11/23 15:50 Temperature 101.6 F H 99.5 F H Temperature Source Temporal Oral Pulse Rate 125 H 114 H Respiratory Rate 18 18 Blood Pressure 151/73 H 140/73 H Blood Pressure Mean 99 95 Pulse Ox 97 96 Oxygen Delivery Method Room Air Room Air Room Air 09/11/23 16:00 09/11/23 15:48 09/11/23 15:50 Temperature 100.2 F H Temperature Source Oral Pulse Rate 114 H 114 H 116 H Respiratory Rate 18 16 17 Blood Pressure 137/71 H 140/73 H Blood Pressure Mean 93 95 Pulse Ox 96 96 96 Oxygen Delivery Method Room Air Room Air <Dr. Mark Graves MD - Last Filed: 09/11/23 16:41> Physical Exam Const Vital Signs: 09/11/23 14:02 09/11/23 15:14 09/11/23 15:50 Temperature 101.6 F H 99.5 F H Temperature Source Temporal Oral Pulse Rate 125 H 114 H Respiratory Rate 18 18 Blood Pressure 151/73 H 140/73 H Blood Pressure Mean 99 95 Pulse Ox 97 96 Oxygen Delivery Method Room Air Room Air Room Air 09/11/23 16:00 09/11/23 15:48 09/11/23 15:50 Temperature 100.2 F H Temperature Source Oral Pulse Rate 114 H 114 H 116 H Respiratory Rate 18 16 17 Blood Pressure 137/71 H 140/73 H Blood Pressure Mean 93 95 Pulse Ox 96 96 96 Oxygen Delivery Method Room Air Room Air Sepsis Attestation <Dr. Mark Graves MD - Last Filed: 09/11/23 16:41> Sepsis Alert: Yes Sepsis Attestation: Agree w/Sepsis Date exam was performed: 09/11/23 Time exam was performed: 14:10 Possible Source of Sepsis: Genitourinary Sepsis Organ Dysfunction Criteria Present: Lactic Acid > 2 mmol/L Supportive Findings: Received a 1 L bolus. Patient does not meet criteria for septic shock and did not receive a 30 cc/kg bolus. MDM <PAYAL Oliver - Last Filed: 09/11/23 16:40> [facility] Lab Data Labs: Laboratory Results - last 24 hr 09/11/23 09/11/23 15:10 15:11 WBC 9.5 RBC 4.04 L Hgb 11.3 L Hct 36.0 L MCV 89.1 MCH 28.0 MCHC 31.4 L RDW Std Deviation 55.0 H RDW Coeff of Ismael 17.1 H Plt Count 274 MPV 9.4 Immature Gran % (Auto) 1.200 H Neut % (Auto) 83.1 H Lymph % (Auto) 2.6 L [place] % (Auto) 12.8 H Eos % (Auto) 0.0 Baso % (Auto) 0.3 Absolute Neuts (auto) 7.9 H Absolute Lymphs (auto) 0.25 L Nucleated RBC % 0 Differential Comment SCANNED Sodium 132 L Potassium 4.1 Chloride 104 Carbon Dioxide 19.0 L Anion Gap 9 BUN 18 Creatinine 2.10 H Estim Creat Clear Calc 23.89 Est GFR (MDRD) Af Amer 30 L Est GFR (MDRD) Non-Af 25 L BUN/Creatinine Ratio 8.6 L Glucose 182 H Lactic Acid 3.8 H* Calcium 9.2 Total Bilirubin 1.00 AST 124 H ALT 47 Alkaline Phosphatase 199 H Total Protein 7.2 Albumin 3.1 L Globulin 4.1 Albumin/Globulin Ratio 0.8 L Urine Color Yellow Urine Clarity Sl. Cloudy Urine pH 6.0 Ur Specific [place] 1.015 Urine Protein 30 H Urine Glucose (UA) Normal Urine Ketones Negative Urine Occult Blood 50 H Urine Nitrite Positive H Urine Bilirubin Negative Urine Urobilinogen Normal Ur Leukocyte Esterase 500 H Urine RBC 0-5 SEEN Urine WBC >100 SEEN Ur Squamous Epith Cells 0-5 SEEN Urine Bacteria 2+ Urine Mucus 0 SEEN Treatment and Re-Evaluation :: Patient appears to be in no obvious respiratory distress however patient is concerned for septicemia secondary to the tachycardia, fever of 101.6. Patient is currently receiving chemotherapy last dose was 1 week ago. Differential diagnosis includes sepsis, urinary tract infection, viral illness such as COVID, flu, RSV, pneumonia. Patient will receive 2 sets of blood cultures, will be given IV fluids, Tylenol, will be started IV Zosyn for empiric treatment. Patient likely need to be admitted to the hospital. Patient's urinalysis positive for infection with 2+ bacteria greater than 100 white blood cells, 500 leukocytes positive nitrates, this to be sent for a urine culture, patient was placed on Zosyn. Chest x-ray was unremarkable, patient's laboratory values show a elevated lactic acidosis at 3.8. Patient's CBC showed a white blood count of 9.5, patient's chemistries show a normal anion gap, sodium 132, creatinine is on uptake from 2.10, over the last several months, patient has had intermittent elevated creatinines. Last 1 was early July at 1.27, now is 2.10. Patient <Dr. Mark Graves MD - Last Filed: 09/11/23 16:41> [facility] MDM Narrative Medical decision making narrative: I have personally performed a face to face assessment of the patient and have reviewed the SAMEER Note. I performed a substantive portion of the visit including all aspects of the following. My hernandez findings include: History is remarkable for fever, chills, odor and turbid urine since this weekend. She had chemo therapy 1 week ago. She gets chemotherapy every other week. Her oncologist is Dr. Ned Whyte. She denies shaking chills. She denies headache, visual, ocular auditory symptoms. Denies neck pain or neck stiffness. She denies cough or shortness of breath. She does endorse nausea without vomiting or diarrhea. She denies abdominal pain. She denies back or flank pa in. She denies any skin lesions. Exam is for a heart rate of 125, temperature of 101.6 and blood pressure is elevated 151/73. Clinically patient appears dehydrated. HEENT exam is remarkable for pale conjunctive up. Mucosa is dry. Heart is rapid and regular. There is no murmur, gallop or rub. Lungs are clear to auscultation with fair breath sounds on the bilateral. There is suprapubic discomfort on palpation. There is no CVA tenderness noted. Patient does have a port. There is no evidence infection around the port. Neuroexam is nonfocal. Medical Decision Making patient recently receiving chemo and the fact that she is febrile tachycardic there is concern for neutropenia. Sepsis/neutropenia order set was initiated. Patient was treated with Zosyn empirically. Other additions or changes: Was discussed with oncologist and hospitalist for admission. Lab Data Attestation: I reviewed the patient's lab results. Lab results narrative: Count is normal with shift. There is no bandemia. Hemoglobin is 11.3 with hematocrit of 30.0. Basic metabolic panel reveals a BUN and creatinine of 18 and 2.1. Estimated GFR is 25. Glucose is 182 with a low CO2 and normal anion gap. Lactate elevated 3.8. Urine is consistent with infection. Labs: Laboratory Results - last 24 hr 09/11/23 09/11/23 15:10 15:11 WBC 9.5 RBC 4.04 L Hgb 11.3 L Hct 36.0 L MCV 89.1 MCH 28.0 MCHC 31.4 L RDW Std Deviation 55.0 H RDW Coeff of Ismael 17.1 H Plt Count 274 MPV 9.4 Immature Gran % (Auto) 1.200 H Neut % (Auto) 83.1 H Lymph % (Auto) 2.6 L [place] % (Auto) 12.8 H Eos % (Auto) 0.0 Baso % (Auto) 0.3 Absolute Neuts (auto) 7.9 H Absolute Lymphs (auto) 0.25 L Nucleated RBC % 0 Differential Comment SCANNED Sodium 132 L Potassium 4.1 Chloride 104 Carbon Dioxide 19.0 L Anion Gap 9 BUN 18 Creatinine 2.10 H Estim Creat Clear Calc 23.89 Est GFR (MDRD) Af Amer 30 L Est GFR (MDRD) Non-Af 25 L BUN/Creatinine Ratio 8.6 L Glucose 182 H Lactic Acid 3.8 H* Calcium 9.2 Total Bilirubin 1.00 AST 124 H ALT 47 Alkaline Phosphatase 199 H Total Protein 7.2 Albumin 3.1 L Globulin 4.1 Albumin/Globulin Ratio 0.8 L Urine Color Yellow Urine Clarity Sl. Cloudy Urine pH 6.0 Ur Specific [place] 1.015 Urine Protein 30 H Urine Glucose (UA) Normal Urine Ketones Negative Urine Occult Blood 50 H Urine Nitrite Positive H Urine Bilirubin Negative Urine Urobilinogen Normal Ur Leukocyte Esterase 500 H Urine RBC 0-5 SEEN Urine WBC >100 SEEN Ur Squamous Epith Cells 0-5 SEEN Urine Bacteria 2+ Urine Mucus 0 SEEN Radiography Chest X-Ray - ED: 1 View and Read by ED Physician (Single view chest x-ray is independent reviewed interpreted by me at 1555 as negative for any infiltrate. There is atelectasis right lower lobe. Cardiac silhouette and size normal. P erihilar regions normal. Osseous structures unremarkable.) EKG Initial EKG: Attestation: I personally reviewed and interpreted this EKG as follows: Interpretation: Sinus Tachycardia (Rate is 108. The EKG is normal other than sinus tachycardia. FL interval is 150 ms. QRS duration 82 ms. QT duration 348 ms. [place] is normal.) Management Discussion w/another healthcare provider: Hospitalist (Bleed the hospitalist was paged for admission. Delete requested full 30 cc/kg bolus. Patient be admitted to the ICU.) and Income Tax Preparer (Spoke with Dr. Ned Whyte her oncologist.) <Dr. Mark Graves MD - Last Filed: 09/11/23 16:41> Critical Care Time Critical Care Time: Yes Critical care time (excluding procedures): 30-74 minutes (32), Including time spent: (, Physical, documentation, independent review interpretation laboratories notes and imaging, initiation of therapy for sepsis possible neutropenia in patient receiving chemotherapy.), Discussing w/Patient &/or Family/Veneer Repairer Machine, Discussing w/Consultants (Hospitalist and Dr. Ned Whyte) and Arranging Admission or Transfer Discharge Plan Dx/Rx/DC Orders Clinical Impression: Fever in adult, Complicated UTI (urinary tract infection), Anticoagulant long- term use, Sepsis without acute organ dysfunction, Sinus tachycardia by electrocardiography, Acidosis, lactic, UTI (urinary tract infection), Acute dehydration, History of colon cancer, Acute kidney insufficiency Disposition Disposition: Acute Care Hospital [facility]
[2023-09-11 15:23] LABS: Mucous, Urine 0 SEEN /hpf (<or=2+)
[2023-09-11] MEDS: Piperacil/Tazobactam 3.375 GM in 0.9% Normal Saline (50mL MB+) 50 ML IV (15:24)
[2023-09-11] MEDS: 0.9% Normal Saline (1000mL) 1,000 ML 999 ML IV ×2 (15:24→17:53)
[2023-09-11] MEDS: Acetaminophen 500 MG Tablet 1000 MG PO (15:24)
[2023-09-11 15:29] LABS: Absolute Lymphocyte Count 0.25 X10^3/uL (0.83-4.51); Absolute Neutrophil Count 7.9 X10^3/uL (2.0-7.7); Basophil# 0.03 X10^3/uL; Basophil% 0.3 % (0-1); Hemoglobin 11.3 g/dL (12.0-15.0); Lymphocyte # 0.25 X10^3/ul (0.83-4.51); Lymphocyte % 2.6 % (19-41); Mean Corp Hgb Conc 31.4 g/dL (32-36); Mean Corpuscular Volume 89.1 fL (81-99); Mean Platelet Vol. 9.4 fl (6.2-12.0); Monocyte# 1.21 X10^3/uL; Monocyte% 12.8 % (0-10); NRBC Flagged by Analyzer 0 % (0-5); Neutrophil # 7.86 X10^3/uL (2.7-7.7); Neutrophil % 83.1 % (47-70); POSITIVE DIFFERENTIAL YES; Platelet Count 274 K/mm3 (150-450); RBC Distribution Width CV 17.1 % (11.6-14.6); Red Blood Count 4.04 M/mm3 (4.2-5.4); White Blood Count 9.5 K/mm3 (4.4-11.0)
[2023-09-11 15:29] LABS: Color, Urine Yellow (Yellow); Glucose, Dipstick Normal (Normal); Ketone-Dipstick Negative (Negative); Leukocyte Esterase-Dipstick 500 /ul (Negative); Nitrite-Dipstick Positive (Negative); Occult Blood-Urine 50 /ul (Negative); Protein-Dipstick 30 mg/dl (Negative); Specific Gravity, Urine 1.015 (1.002-1.030); Urine Bilirubin Dipstick Negative (Negative); Urine Clarity Sl. Cloudy (Clear); Urine Urobilinogen Normal (Normal)
[2023-09-11 15:38] LABS: Bacteria 2+ /hpf (None Seen); White Blood Cells >100 SEEN /hpf (0-5)
[2023-09-11 15:39] LABS: Red Blood Cells-Urine 0-5 SEEN /hpf (0-5); Squamous Epithelial Cells - UA 0-5 SEEN /hpf (5-10)
[2023-09-11 15:48] LABS: ALB/GLOB Ratio 0.8 RATIO (0.9-2.4); AST(SGOT) 124 U/L (15-37); Alanine Aminotransfer ALT/SGPT 47 U/L (13-56); Albumin, Serum 3.1 g/dL (3.2-5.0); Alkaline Phosphatase 199 U/L (45-117); Anion Gap 9 (5-15); BUN 18 mg/dL (7-18); BUN/Creat Ratio 8.6 RATIO (10-20); Calcium,Total 9.2 mg/dL (8.5-10.1); Chloride 104 mmol/L (98-107); EST Glomerular Filtration Rate 25 mL/min (>60); Est Glom Filt Rate - Afr Amer 30 mL/min (>60); Estimated Creatinine Clearance 23.89 ml/min; Globulin 4.1 g/dL (2.2-4.2); Glucose 182 mg/dL (74-106); Potassium 4.1 mmol/L (3.5-5.1); Protein, Total 7.2 g/dL (6.4-8.2); Sodium Level 132 mmol/L (136-145)
--- NOTE | 2023-09-11 15:50 | RAD_ITS ---
INDICATION: cough EXAMINATION/TECHNIQUE: X-RAY - XR Chest 1 View COMPARISON: August 01, 2023 FINDINGS: LINES/DEVICES: Stable left venous port. LUNGS: No consolidation, edema or effusion. Basilar atelectasis. No pneumothorax. MEDIASTINUM AND CARDIOVASCULAR STRUCTURES: Cardiac silhouette not enlarged. Central airways and mediastinal contour are unremarkable. BONES AND SOFT TISSUES: Unremarkable. RAD/Chest 1 View (Portable) IMPRESSION: Basilar atelectasis. Electronically Signed: Christiano Hooks DO at 17:28 EST ,
[2023-09-11 15:56] LABS: Lactic Acid 3.8 mmol/L (0.4-1.9)
[2023-09-11 16:00] LABS: Differential Indicated SCAN CRITERIA MET
[2023-09-11 16:09] LABS: Differential Comment SCANNED
--- NOTE | 2023-09-11 16:19 | EKG12_ITS ---
Test Reason : Blood Pressure : / mmHG Vent. Rate : 108 BPM Atrial Rate : 108 BPM P-R Int : 150 ms QRS Dur : 082 ms QT Int : 348 ms P-R-T Axes : 041 011 040 degrees QTc Int : 466 ms Sinus tachycardia Otherwise normal ECG Confirmed by DANIELLE FORBES, AMAURI ([id number]), editor news SRINIVASA FINCH ([id number]) on 09/13/2023 10:26:38 AM Referred By: Confirmed By:AMAURI SANTOS MD
--- NOTE | 2023-09-11 16:23 | CT_ITS ---
STUDY: CT ABDOMEN AND PELVIS WITHOUT CONTRAST REASON FOR EXAM: Female, 73 years old. Kidney stone RADIATION DOSAGE (If Supplied By Facility): CTDIvol = ( 7.64 ) mGy, DLP = ( 402.97 ) mGycm TECHNIQUE: Transaxial images were obtained from the dome of the diaphragm to the symphysis pubis without oral contrast, and without intravenous contrast. Sagittal and coronal images were reconstructed. Individualized dose optimization techniques were used for this CT. COMPARISON: August 02, 2023. FINDINGS: The visualized lung bases demonstrate basilar scarring/atelectasis. Interval increasing parenchymal nodules bilaterally.. Largest parenchymal lesion in the right base measures 2.1 cm. The visualized portions of the heart are within normal limits. Normal liver. Normal gallbladder and extrahepatic biliary system. Normal spleen. Normal pancreas. Normal bilateral adrenal glands. Bilateral hydronephrosis, right more than left. Right perinephric stranding. Bilateral hydroureters. Normal visualized stomach. Normal small intestine. Mild diverticulosis of the colon. Prior colonic surgery. The appendix is not visualized. Normal abdominal aorta. Normal inferior vena cava. Normal retroperitoneum. Mild wall thickening of the urinary bladder. There is stable presacral stranding/thickening. There is an ileostomy through the right abdominal wall. Normal osseous structures. CT/Abdomen/Pelvis without Cont IMPRESSION: Bilateral hydronephrosis, right more than left. Right perinephric stranding is noted since the previous study. Bilateral hydroureters. Mild wall thickening of the urinary bladder. Mild colonic diverticulosis. Increasing pulmonary nodules in the visualized lung bases. Relatively stable right lower lobe parenchymal lesion. Electronically Signed: Christiano Hooks DO at 17:13 EST ,
--- NOTE | 2023-09-11 16:43 | PCM.HP.STD ---
HPI - General General Date of Admission: 09/11/23 Date of Service: 09/11/23 Chief Complaint: Abdominal pain HPI Narrative SANTI NAM, is a 73 F who presented to the emergency department at [facility] due to abdominal pain. Patient has a history of colon cancer and is currently being treated with chemotherapy by Dr. Whyte. Her last infusion was about 1 week ago. She has an ileostomy. For about 3 to 4 days prior to presentation the patient noticed that her urine was more cloudy and then she developed fevers, chills and had 1 episode of nausea and vomiting. Tmax at home was 102 today. She denies any frequency or dysuria but states she has issues with bladder sensation due to previous surgeries and typically every time she gets up she goes to urinate so frequency has not significantly changed. She has had increased fatigue and generalized weakness as well. Given the above she came for evaluation. Vital signs on presentation showed temperature of 101.6, heart rate was 125, initial blood pressure was 151/73 but it has come down to 137/71 and she is awaiting antibiotics, respiratory to 18 oxygen saturations are 97% on room air. CBC shows a normal white count but a significant left shift with a 83.1% neutrophilia. Hemoglobin is stable 11.3. Coags are slightly do elevated likely related to her Eliquis use. Her chemistry panel shows mild hyponatremia with a sodium of 132, low serum bicarb at 19, elevated serum creatinine at 2.10 with a normal BUN (baseline serum creatinine runs between 1.25 and 1.5), AST and alk phos are slightly elevated but ALT is normal. Bilirubin is normal. Her glucose was 182 and her lactic acid was 3.8. Her UA is consistent with infection showing positive nitrites, leuk esterase, greater than 100 white cells and bacteria is 2+. Chest x-ray is overall unremarkable. EKG shows sinus tachycardia with normal intervals and no ST-T wave changes concerning for acute ischemia. In the emergency department she was treated with IV fluids, acetaminophen, and given Zosyn. I have ordered a CT of the abdomen pelvis to rule out obstruction and then she will be admitted to the ICU [facility] Medical History (Updated 09/11/23 @ 17:[address] Anna Daniels, DO) Acid reflux Adenocarcinoma of cecum Anemia Encounter for adjustment or management of vascular access device Peritoneal metastases s/p port placement Home Medications omeprazole 20 mg capsule,delayed release 40 mg PO DAILY ACID REFLUX 01/12/17 [History Last Taken 09/11/23] loperamide 2 mg capsule 2 mg PO Q6H PRN DIARRHEA 08/01/23 [History Last Taken 09/10/23] loratadine 10 mg tablet (Claritin) 10 mg PO DAILY ALLERGIES 08/01/23 [History Last Taken 09/11/23] amlodipine 5 mg tablet 5 mg PO DAILY BLOOD PRESSURE 09/11/23 [History Last Taken 09/11/23] apixaban 5 mg tablet (Eliquis) 5 mg PO BID BLOOD THINNER 09/11/23 [History Last Taken 09/11/23] magnesium oxide 400 mg PO DAILY SUPPLEMENT 09/11/23 [History Last Taken 09/10/23] metoclopramide HCl 10 mg tablet 10 mg PO Q6H PRN NAUSEA 09/11/23 [History Last Taken 09/11/23] Allergy/AdvReac Type Severity Reaction Status Date / Time No Known Allergies Allergy Verified 09/11/23 14:02 Family History Mother Hypertension Father Melanoma Brother Melanoma Aunt Breast cancer Surgical History History of bowel resection History of Hx of ileostomy S/P laparoscopic colectomy s/p port placement (~12/06/18) Social History Smoking Status: Former smoker alcohol intake: current alcohol intake frequency: holidays/special occasions only substance use type: does not use caffeine: Yes what type of physical activity do you participate in: walking and weight training frequency: daily seatbelt use: always do you feel safe at home: Yes additional social history: - [employer]-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 Constitutional Constitutional: Reports chills, fatigue, fever(s), malaise and weakness; Denies anorexia, change in weight, night sweats or other Eyes Eyes: Denies blurry vision, change in eye color, change in vision, discharge from eye(s), double vision, erythema, eye pain, loss of vision or other ENT HEENT: Denies abnormal hearing, dysphagia, ear pain, epistaxis, headache(s), hearing loss, nasal congestion, nasal discharge, post nasal drip, sinus pressure, sore throat or other Cardiovascular Cardiovascular: Denies chest pain, claudication, dyspnea on exertion, edema, lightheadedness, orthopnea, palpitations, paroxysmal nocturnal dyspnea, rapid heart rate, syncope or other Respiratory/Chest Respiratory/Chest: Denies cough, dyspnea, excessive phlegm production, hemoptysis, productive cough, shortness of breath at rest, shortness of breath with exertion, wheezing or other Gastrointestinal Gastrointestinal: Reports abdominal pain, nausea, vomiting and other Details: Decreased ostomy output ; Denies coffee ground emesis, constipation, diarrhea, dyspepsia, hematemesis, hematochezia, loose stools or melena Genitourinary Genitourinary: Reports other Details: Patient has decreased bladder sensation due to previous surgery ; Denies burning urination, difficulty urinating, dysuria, hematuria, nocturia, urinary frequency, urinary hesitancy, urinary incontinence or urinary urgency Neurologic Neurologic: Denies abnormal gait, abnormal speech, confusion, disequilibrium, dizziness, focal weakness, headache(s), numbness, paresthesias, seizure-like activity, seizures, syncope, tingling, tremor(s) or other Psychiatric Psychiatric: Denies anxiety, depression, homicidal ideation, suicidal ideation or other Endocrine Endocrinology: Denies change in body appearance, cold intolerance, excessive sweating, heat intolerance, polydipsia, polyuria or other Hematologic/Lymphatic Hematologic/Lymphatic: Reports easy bleeding and easy bruising; Denies anemia, lymphadenopathy or other Allergic/Immunologic Allergic/Immunologic: Denies rhinitis, hives, eczemia, asthma or other Vital Signs Vital Signs Vital Signs: 09/11/23 14:02 09/11/23 15:14 09/11/23 15:50 Temperature 101.6 F H 99.5 F H Temperature Source Temporal Oral Pulse Rate 125 H 114 H Respiratory Rate 18 18 Blood Pressure 151/73 H 140/73 H Blood Pressure Mean 99 95 Pulse Ox 97 96 Oxygen Delivery Method Room Air Room Air Room Air 09/11/23 16:00 09/11/23 15:48 09/11/23 15:50 Temperature 100.2 F H Temperature Source Oral Pulse Rate 114 H 114 H 116 H Respiratory Rate 18 16 17 Blood Pressure 137/71 H 140/73 H Blood Pressure Mean 93 95 Pulse Ox 96 96 96 Oxygen Delivery Method Room Air Room Air Weight Weight: 76.249 kg Body Mass Index (BMI) 26.3 Physical Exam Const alert, oriented x3, no apparent distress and average body habitus; Negative for healthy appearing or well nourished Constitutional Narrative: Older, white female, sitting up in bed, appears comfortable, clinically patient appears better than she looks on paper or her vital signs appear General Appearance: cooperative HEENT normocephalic, head/scalp atraumatic, hearing grossly normal bilaterally and moist oral mucous membranes HEENT Narrative: Holding due to chemotherapy, dentition is good for age, Mallampati is 2, no thrush Eyes PERRL, EOMs intact bilaterally and conjunctivae normal Eyes Narrative: No scleral icterus Neck no lymphadenopathy and supple Neck Narrative: Trachea midline, no thyroid enlargement Resp normal respiratory effort, no retractions, no use of accessory muscles and clear to auscultation bilaterally Auscultation: Negative for rales, rhonchi or wheezes Cardio regular rhythm, S1 normal heart sound, S2 normal heart sound, no murmurs, no rub, no gallops and no clicks Cardio Narrative: Tachycardic GI normal to inspection, nondistended, normoactive bowel sounds and soft to palpation GI Narrative: Mild tenderness in the upper abdomen, ostomy with good output currently-patient states that is improved since she has gotten some IV liquids Extremity no clubbing, cyanosis or edema Extremity Narrative: Pedal pulses are 2+ Skin Skin Narrative: Skin is pale, left upper chest port in place and accessed, no erythema or drainage in the area of the port Neuro oriented x3, CN's II-XII intact bilaterally, moves all extremities and no focal motor deficits Speech: speech normal Psych affect normal Psych Narrative: Very pleasant, eye contact is good, patient interacts appropriately Results Medical Records Data Attestation: I reviewed the patient's medical records Lab / Micro Data 09/11/23 15:10 09/11/23 15:10 Labs: Laboratory Results - last 24 hr 09/11/23 15:10: WBC 9.5, RBC 4.04 L, Hgb 11.3 L, Hct 36.0 L, MCV 89.1, MCH 28.0, MCHC 31.4 L, RDW Std Deviation 55.0 H, RDW Coeff of Ismael 17.1 H, Plt Count 274, MPV 9.4, Immature Gran % (Auto) 1.200 H, Neut % (Auto) 83.1 H, Lymph % (Auto) 2.6 L, [place] % (Auto) 12.8 H, Eos % (Auto) 0.0, Baso % (Auto) 0.3, Absolute Neuts (auto) 7.9 H, Absolute Lymphs (auto) 0.25 L, Nucleated RBC % 0, Differential Comment SCANNED, Sodium 132 L, Potassium 4.1, Chloride 104, Carbon Dioxide 19.0 L, Anion Gap 9, BUN 18, Creatinine 2.10 H, Estim Creat Clear Calc 23.89, Est GFR (MDRD) Af Amer 30 L, Est GFR (MDRD) Non-Af 25 L, BUN/Creatinine Ratio 8.6 L, Glucose 182 H, Lactic Acid 3.8 H*, Calcium 9.2, Total Bilirubin 1.00, AST 124 H, ALT 47, Alkaline Phosphatase 199 H, Total Protein 7.2, Albumin 3.1 L, Globulin 4.1, Albumin/Globulin Ratio 0.8 L 09/11/23 15:11: Urine Color Yellow, Urine Clarity Sl. Cloudy, Urine pH 6.0, Ur Specific [place] 1.015, Urine Protein 30 H, Urine Glucose (UA) Normal, Urine Ketones Negative, Urine Occult Blood 50 H, Urine Nitrite Positive H, Urine Bilirubin Negative, Urine Urobilinogen Normal, Ur Leukocyte Esterase 500 H, Urine RBC 0-5 SEEN, Urine WBC >100 SEEN, Ur Squamous Epith Cells 0-5 SEEN, Urine Bacteria 2+, Urine Mucus 0 SEEN Assessment & Plan Assessment/Plan (1) Acute dehydration: (2) UTI (urinary tract infection): (3) Sepsis: (4) Acidosis, lactic: (5) Sinus tachycardia by electrocardiography: (6) Fever in adult: (7) MAJO (acute kidney injury): PLAN: Plan Sepsis secondary to UTI -Patient meets sepsis criteria with fever greater than 100.9, tachycardia, endorgan damage in the form of MAJO and lactic acidosis of 3.8 -UA is suggestive of infection, urine cultures and blood cultures are pending -Check MRSA PCR -Start cefepime and vancomycin -Patient received 1 dose of Zosyn in the emergency department -Fluid boluses at 30 cc/kg ideal body weight--> gram-negative organism is highly suspicious especially with UTI and I am concerned that her blood pressures may drop after receiving antibiotics due to cytokine release and physiologic response to gram-negative sepsis -Reevaluate after fluid boluses and IV antibiotics as patient may need pressors depending on blood pressure response -Will check CT of the abdomen pelvis to rule out obstruction given the presentation with UTI and sepsis -Patient did have some hydronephrosis noted in early July on the right side that was mild to moderate with a moderate postvoid residual -Post void was checked on day 2 of her hospitalization and she was able to empty with compensatory mechanisms -Patient was to follow-up with urology at [facility] and it sounds as if he had but I am unable to tell -Sepsis order set utilized MAJO -Baseline serum creatinine runs between 1.25 and 1.5 -Current serum creatinine is 2.10 -Suspect related to sepsis and dehydration -Aggressive fluid hydration -Will continue IV fluids after bolus at 70 cc/h with LR -Avoid nephrotoxins -Repeat lab in a.m. Nausea and vomiting -Antiemetics -IV fluids as above Lactic acidosis -Related to the above -Sepsis protocol in place -Repeat pending per sepsis guidelines Hyponatremia -Suspect related to volume depletion -IV fluids being replaced -Repeat a.m. -No further workup required at this time History of DVT/bilateral PE -Continue home apixaban -Diagnosed early in July at which time she was admitted -Patient was bridged with Lovenox initially and then started on Eliquis at discharge GERD -Continue home PPI Colon cancer with peritoneal metastasis -CT of the abdomen pelvis pending to rule out obstruction either extrinsic or intrinsic -Patient follows with Dr. Whyte and currently on chemotherapy -Last chemotherapy was 1 week ago -Patient is not neutropenic on presentation -Follow-up with Dr. Whyte after discharge History of tobacco abuse -Remote -Recommend ongoing smoking cessation DVT prophylaxis -Continue full dose apixaban for recent PE CODE STATUS -Full code is verified on admission Sepsis Attestation Sepsis Alert: Yes Sepsis Attestation: Agree w/Sepsis Date exam was performed: 09/11/23 Time exam was performed: 16:43 Possible Source of Sepsis: Genitourinary Sepsis Organ Dysfunction Criteria Present: Creatinine > 2.0 mg/dL and Lactic Acid > 2 mmol/L Supportive Findings: Fever greater than 100.9 and tachycardia Fluid Resuscitation Fluid resuscitation indicated?: Yes Fluid Resuscitation ordered: 30 ml/kg fluid bolus ordered Amount of fluid ordered: 2,500 Charges/Coding Visit Charges Inpatient E&M: 54640 Init Hosp L3
[2023-09-11] MEDS: 0.9% Normal Saline (1000mL) 1,000 ML 1000 ML IV (16:46)
[2023-09-11 16:47] LABS: International Normalized Ratio 1.4; Prothrombin Time (Protime)PT. 16.9 SECONDS (11.7-14.9)
[2023-09-11 16:48] LABS: Partial Thromboplast Time 29.3 Seconds (24.1-36.2)
--- NOTE | 2023-09-11 17:01 | ED.RN ---
report called to ICU nurseOlivia
[2023-09-11] MEDS: Lactated Ringers 1,000 ML 70 ML IV (17:53)
[2023-09-11] MEDS: Vancomycin HCl 2,000 MG in 0.9% Normal Saline (500mL Bag) 500 ML 250 MG IV (18:15)
--- NOTE | 2023-09-11 18:27 | PCM.RX.CS ---
Consult Antibiotic Management Pharmacy has been consulted to manage selected antiobiotic: Vancomycin Type of Intervention Type of Consult: New start Suspected Infection Suspected Infection: Sepsis and Other (UTI) Labs Labs: Sodium 132 mmol/L (136-145) L 09/11/23 15:10 Potassium 4.1 mmol/L (3.5-5.1) 09/11/23 15:10 Chloride 104 mmol/L (98-107) 09/11/23 15:10 Carbon Dioxide 19.0 mmol/L (21.0-32.0) L 09/11/23 15:10 Anion Gap 9 (5-15) 09/11/23 15:10 BUN 18 mg/dL (7-18) 09/11/23 15:10 Creatinine 2.10 mg/dL (0.55-1.02) H 09/11/23 15:10 Est GFR (MDRD) Af Amer 30 mL/min (>60) L 09/11/23 15:10 Est GFR (MDRD) Non-Af 25 mL/min (>60) L 09/11/23 15:10 BUN/Creatinine Ratio 8.6 RATIO (10-20) L 09/11/23 15:10 Glucose 182 mg/dL (74-106) H 09/11/23 15:10 Dosing Weight Weight used for dosin.1 kg Estimated Creatinine Clearance Estimated Creatinine Clearance: 26.6ML/MIN Goal Trough Goal Trough: 15-20 mcg/mL Pharmacy Plan for Drug Dosing Pharmacy Plan for Drug Dosing: Give initial load dose of 2000mg IV x1, then continue with 750mg IV q24h per [facility] dosing protocol. Will check a trough before the 3rd total dose. The patient's CrCl was calculated using an adjusted body weight. Pharmacy Service will continue to monitor and adjust dosing as required. Follow-Up Labs Follow-Up Labs: Trough: Vancomycin Date/Time Labs Ordered Labs to be done on [date and time ordered]: 09/13/23 17:30
--- NOTE | 2023-09-11 18:31 | PCM.HOSP.N ---
Sepsis Attestation Sepsis Note Date exam was performed: 09/11/23 Time exam was performed: 18:31 Sepsis Attestation: Sepsis re-evaluation was performed (abx in and pt receiving last 500 cc of resucitation and pt does not need pressors)
[2023-09-11 19:17] LABS: Reflex Lactate? Y
[2023-09-11 20:10] LABS: Lactic Acid 1.7 mmol/L (0.4-1.9)
--- NOTE | 2023-09-11 20:14 | PCM.CONS.GEN ---
Assessment & Plan Assessment/Plan (1) Complicated UTI (urinary tract infection): (2) Acute dehydration: (3) MAJO (acute kidney injury): (4) Bilateral hydronephrosis: PLAN: Plan Continue supportive care in the ICU with antibiotic coverage and cultures pending To the operating room today for cystoscopy and bilateral ureteral stent insertion informed consent has been obtained If I am unable to place ureteral stents secondary to her previous surgical intervention, she will need evaluation and management by interventional radiology with percutaneous nephrostomy tube insertion HPI Consult Data Date of Consult: 09/11/23 HPI Narrative Reason for Consultation: Hydronephrosis, acute renal failure, evidence of urosepsis HPI Narrative: SANTI NAM, is a 73 F who presented to the emergency room with fever, chills, nausea and vomiting. 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 She is currently undergoing chemotherapy at this time. Since the bladder procedure she has not had any feeling of urgency or sensation to void and has been having issues with urinary incontinence. She started feeling poorly approximately 2 days ago at home. She is followed at the [facility]. [facility] Medical History (Updated 09/11/23 @ 20:[address] Janet Curran MD) Acid reflux Adenocarcinoma of cecum Anemia Bilateral hydronephrosis Encounter for adjustment or management of vascular access device Peritoneal metastases s/p port placement Home Medications omeprazole 20 mg capsule,delayed release 40 mg PO DAILY ACID REFLUX 01/12/17 [History Last Taken 09/11/23] loperamide 2 mg capsule 2 mg PO Q6H PRN DIARRHEA 08/01/23 [History Last Taken 09/10/23] loratadine 10 mg tablet (Claritin) 10 mg PO DAILY ALLERGIES 08/01/23 [History Last Taken 09/11/23] amlodipine 5 mg tablet 5 mg PO DAILY BLOOD PRESSURE 09/11/23 [History Last Taken 09/11/23] apixaban 5 mg tablet (Eliquis) 5 mg PO BID BLOOD THINNER 09/11/23 [History Last Taken 09/11/23] magnesium oxide 400 mg PO DAILY SUPPLEMENT 09/11/23 [History Last Taken 09/10/23] metoclopramide HCl 10 mg tablet 10 mg PO Q6H PRN NAUSEA 09/11/23 [History Last Taken 09/11/23] Allergy/AdvReac Type Severity Reaction Status Date / Time No Known Allergies Allergy Verified 09/11/23 14:02 Family History Mother Hypertension Father Melanoma Brother Melanoma Aunt Breast cancer Surgical History History of bowel resection History of Hx of ileostomy S/P laparoscopic colectomy s/p port placement (~12/06/18) Social History Smoking Status: Former smoker alcohol intake: current alcohol intake frequency: holidays/special occasions only substance use type: does not use caffeine: Yes what type of physical activity do you participate in: walking and weight training frequency: daily seatbelt use: always do you feel safe at home: Yes additional social history: - [employer]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 Constitutional: Reports body ache(s), chills, fatigue and fever(s) Eyes Eyes: Reports systems reviewed and no addt'l complaints, except as documented ENT HEENT: Reports systems reviewed and no addt'l complaints, except as documented Cardiovascular Cardiovascular: Reports nausea and vomiting; Denies chest pain Respiratory/Chest Respiratory/Chest: Reports systems reviewed and no addt'l complaints, except as documented Gastrointestinal Gastrointestinal: Reports nausea and vomiting Genitourinary Genitourinary: Reports urinary incontinence; Denies burning urination, hematuria, urinary frequency or urinary urgency Integumentary Integumentary: Reports systems reviewed and no addt'l complaints, except as documented Neurologic Neurologic: Reports systems reviewed and no addt'l complaints, except as documented Psychiatric Psychiatric: Reports systems reviewed and no addt'l complaints, except as documented Endocrine Endocrinology: Reports systems reviewed and no addt'l complaints, except as documented Hematologic/Lymphatic Hematologic/Lymphatic: Reports systems reviewed and no addt'l complaints, except as documented Allergic/Immunologic Allergic/Immunologic: Reports systems reviewed and no addt'l complaints, except as documented Physical Exam Const alert and oriented x3 Constitutional Narrative: Appears pale and frail, tired. HEENT normocephalic, head/scalp atraumatic, hearing grossly normal bilaterally, external ears normal and external nose normal Eyes General Eye: normal appearance of both eyes Neck supple General: normal visual inspection and trachea midline Chest inspection of chest normal Resp normal respiratory effort and normal air movement Cardio Rate: tachycardic GI soft to palpation, non-tender and non-distended Bladder / Kidney Exam: No catheter in place Back/Spine no CVA tenderness Skin no rashes or lesions noted, no wounds, no jaundice, no petechiae and no mottling Neuro oriented x3, CN's II-XII intact bilaterally and moves all extremities Psych mental status grossly normal, thought process normal and cooperative Lab / Micro Data 09/11/23 15:10 09/11/23 15:10 Labs: Laboratory Results - last 24 hr 09/11/23 15:10: WBC 9.5, RBC 4.04 L, Hgb 11.3 L, Hct 36.0 L, MCV 89.1, MCH 28.0, MCHC 31.4 L, RDW Std Deviation 55.0 H, RDW Coeff of Ismael 17.1 H, Plt Count 274, MPV 9.4, Immature Gran % (Auto) 1.200 H, Neut % (Auto) 83.1 H, Lymph % (Auto) 2.6 L, [place] % (Auto) 12.8 H, Eos % (Auto) 0.0, Baso % (Auto) 0.3, Absolute Neuts (auto) 7.9 H, Absolute Lymphs (auto) 0.25 L, Nucleated RBC % 0, Differential Comment SCANNED, PT 16.9 H, INR 1.4, APTT 29.3, Sodium 132 L, Potassium 4.1, Chloride 104, Carbon Dioxide 19.0 L, Anion Gap 9, BUN 18, Creatinine 2.10 H, Estim Creat Clear Calc 23.89, Est GFR (MDRD) Af Amer 30 L, Est GFR (MDRD) Non-Af 25 L, BUN/Creatinine Ratio 8.6 L, Glucose 182 H, Lactic Acid 3.8 H*, Calcium 9.2, Total Bilirubin 1.00, AST 124 H, ALT 47, Alkaline Phosphatase 199 H, Total Protein 7.2, Albumin 3.1 L, Globulin 4.1, Albumin/Globulin Ratio 0.8 L 09/11/23 15:11: Urine Color Yellow, Urine Clarity Sl. Cloudy, Urine pH 6.0, Ur Specific [place] 1.015, Urine Protein 30 H, Urine Glucose (UA) Normal, Urine Ketones Negative, Urine Occult Blood 50 H, Urine Nitrite Positive H, Urine Bilirubin Negative, Urine Urobilinogen Normal, Ur Leukocyte Esterase 500 H, Urine RBC 0-5 SEEN, Urine WBC >100 SEEN, Ur Squamous Epith Cells 0-5 SEEN, Urine Bacteria 2+, Urine Mucus 0 SEEN 09/11/23 19:40: Lactic Acid 1.7 Imagaing Radiology Impression Chest X-Ray 09/11/23 15:50 IMPRESSION: Basilar atelectasis. Electronically Signed: Christiano Hooks DO at 17:28 EST , Abdomen/Pelvis CT 09/11/23 16:23 IMPRESSION: Bilateral hydronephrosis, right more than left. Right perinephric stranding is noted since the previous study. Bilateral hydroureters. Mild wall thickening of the urinary bladder. Mild colonic diverticulosis. Increasing pulmonary nodules in the visualized lung bases. Relatively stable right lower lobe parenchymal lesion. Electronically Signed: Christiano Hooks DO at 17:13 EST ,
--- NOTE | 2023-09-11 20:22 | PCM.OPRPT ---
Report of Operation Date of Procedure: 09/11/23 Pre-Operative Diagnosis: Bilateral hydronephrosis, urinary tract infection, acute renal failure Post-Operative Diagnosis: Same Surgery/Procedure Performed:: Cystoscopy with bilateral ureteral stent insertion Description of Surgical Findings:: 6 x 26 JJ stents, purulent urine from the right kidney Surgeon: Janet Curran Type of Anesthesia: MAC Specimen's removed: None Description of Procedure: The patient is a 73-year-old female on chemotherapy for metastatic colon cancer. She underwent a partial cystectomy of her bladder secondary to tumor resection in April. Since then she has been struggling and admitted with dehydration, found to have bilateral hydronephrosis. They have been following this. Earlier this week she developed nausea, vomiting, fever to 102 at home with no urinary symptoms. Of note she has not had normal bladder function since the procedure in April. She was taken to the emergency room and found to have bilateral hydronephrosis with with significant stranding on the right side along with urine consistent with infection. Her white count is elevated for her at 9. The decision was made to take the patient to the operating room for cystoscopy and bilateral ureteral stent insertion. Informed consent was obtained. The patient was taken to the operating room and placed on the operating room table. Anesthesia monitored the head, neck, airway, IV access and vital signs throughout the case. Once anesthesia was appropriate ministered, the patient was placed into dorsolithotomy position was prepped and draped in usual sterile fashion. The cystoscope was inserted through the urethra under direct visualization into the urinary bladder. The urine was filled with white debris and after irrigating I was finally able to locate the ureteral orifices which appeared to be widely patent bilaterally. A 0.035 Glidewire was inserted through the left ureteral orifice and was seen in the renal pelvis on fluoroscopic visualization. A 6 [place] by 26 cm JJ stent was inserted over the wire with good positioning in the renal pelvis as well as the urinary bladder. This process was then repeated on the patient's right side. After insertion of the wire significant amount of purulent urine was seen exiting the right kidney. This continued throughout placement of the stent and continued afterward as well. At this time the cystoscope was removed and a Dennis catheter was inserted to straight drain with 10 cc in the balloon. Of note the patient's urethra is edematous. There were no complications during the procedure. She was awakened and taken to the ICU in okay condition. Grafts/Implants Used: Bilateral 6 [place] Island[place] by 26 cm JJ stent Complications None Admit VTE Documentation VTE Present on Admission: Yes VTE Mechan Device Prophylaxis: SCD's VTE Pharm Prophylaxis ordered?: Yes
[2023-09-11] MEDS: 0.9% Saline Lock 10 ML Syringe IV (21:42)
[2023-09-11] MEDS: Cefepime HCl 2 GM in 0.9% Normal Saline (100mL MB+) 100 ML IV (21:52)
[2023-09-11] MEDS: APIXABAN 5 MG TABLET PO (21:53)
[2023-09-11] MEDS: Acetaminophen 325 MG Tablet 650 MG PO (23:30)
[2023-09-12] VITALS (26 sets, daily range): BP systolic 95–133; BP diastolic 50–73; PULSE 98–122; RESP 13–32; TEMP 36.7–38.7; O2SAT 93–100; BMI 26.6
[2023-09-12] MEDS: Lactated Ringers 1,000 ML 999 ML IV (01:06)
[2023-09-12 01:29] LABS: M R Staph aureus DNA By PCR Negative (Negative); Probe Check PASS; Specimen Processing Control PASS
[2023-09-12] MEDS: 0.9% Saline Lock 10 ML Syringe IV (05:00)
[2023-09-12] MEDS: Lactated Ringers 1,000 ML 70 ML IV (05:00)
[2023-09-12] MEDS: metroNIDAZOLE 500 MG/100 ML BAG 100 MG IV (05:00)
[2023-09-12 05:05] LABS: Absolute Lymphocyte Count 0.32 X10^3/uL (0.83-4.51); Absolute Neutrophil Count 9.7 X10^3/uL (2.0-7.7); Basophil# 0.05 X10^3/uL; Basophil% 0.5 % (0-1); Eosinophil# 0.04 X10^3/uL; Eosinophils% 0.4 % (0-5); Hematocrit 30.5 % (37-47); Hemoglobin 9.6 g/dL (12.0-15.0); Lymphocyte # 0.32 X10^3/ul (0.83-4.51); Mean Corp Hgb Conc 31.5 g/dL (32-36); Mean Corpuscular Hgb 28.2 pg (27.0-32.0); Mean Corpuscular Volume 89.4 fL (81-99); Mean Platelet Vol. 9.4 fl (6.2-12.0); Monocyte# 0.69 X10^3/uL; Monocyte% 6.4 % (0-10); NRBC Flagged by Analyzer 0 % (0-5); Neutrophil # 9.69 X10^3/uL (2.7-7.7); Neutrophil % 89.4 % (47-70); POSITIVE DIFFERENTIAL YES; POSITIVE MORPHOLOGY YES; Platelet Count 240 K/mm3 (150-450); RBC Distribution Width CV 17.2 % (11.6-14.6); Red Blood Count 3.41 M/mm3 (4.2-5.4); White Blood Count 10.8 K/mm3 (4.4-11.0)
[2023-09-12 05:15] LABS: Differential Indicated SCAN CRITERIA MET
[2023-09-12 05:36] LABS: ALB/GLOB Ratio 0.7 RATIO (0.9-2.4); AST(SGOT) 39 U/L (15-37); Alanine Aminotransfer ALT/SGPT 22 U/L (13-56); Albumin, Serum 2.2 g/dL (3.2-5.0); Alkaline Phosphatase 109 U/L (45-117); Anion Gap 8 (5-15); BUN 20 mg/dL (7-18); BUN/Creat Ratio 9.1 RATIO (10-20); Calcium,Total 7.8 mg/dL (8.5-10.1); Chloride 111 mmol/L (98-107); EST Glomerular Filtration Rate 23 mL/min (>60); Est Glom Filt Rate - Afr Amer 28 mL/min (>60); Estimated Creatinine Clearance 22.81 ml/min; Glucose 108 mg/dL (74-106); Magnesium 1.2 mg/dL (1.6-2.6); Phosphorus 1.8 mg/dL (2.5-4.9); Potassium 3.8 mmol/L (3.5-5.1); Protein, Total 5.2 g/dL (6.4-8.2); Sodium Level 140 mmol/L (136-145)
[2023-09-12 07:25] LABS: Differential Comment SCANNED
[2023-09-12] MEDS: Potassium Phosphate 40 MM in 0.9% Normal Saline (500mL Bag) 500 ML 62.5 MM IV (08:26)
[2023-09-12] MEDS: Magnesium Chloride 64 MG Delay Rel.Tablet 128 MG PO (08:28)
--- NOTE | 2023-09-12 09:44 | EX.PCM.CONCC ---
Assessment & Plan Assessment/Plan (1) MAJO (acute kidney injury): (2) Bilateral hydronephrosis: (3) Sepsis: (4) Peritoneal metastases: PLAN: Plan RECOMMENDATIONS: 1. Continue empiric antibiotics pending cultures 2. Attempt fluid challenge with hypotension 3. Okay to continue Eliquis as long as she does not develop clotting 4. Aggressive electrolyte repletion 5. Potential transfer from the intensive care unit later today 6. Possible sign off from a critical care perspective later today if able to go to the floor IMPRESSIONS: 1. Sepsis secondary to UTI with obstructing stones Patient does have positive blood cultures at this time. Patient is on broad-spectrum antibiotics. Clinical suspicion for gram-negative sepsis. Patient has been fluid responsive to this point. Patient remains on room air, so would likely recommend a fluid challenge if patient does develop lowering blood pressure. Patient has had high fevers, but no pressors needed to be initiated. Likely okay to transfer out of the intensive care unit later today as long as she has no further issues. Aggressive electrolytes have been ordered. 2. Acute kidney injury Clinical suspicion for prerenal and postrenal etiology. Patient did have obstructing stones that have been relieved. Patient also had some hypotension related to problem #1. Will continue to monitor closely. Patient does not require any renal replacement therapy at this time. Anticipate aggressive electrolyte repletion will be required moving forward. Patient can follow-up with urology as an outpatient for removal of stents. 3. Colon cancer with peritoneal metastasis on chemotherapy with history of PE-DVT/seasonal allergies/advanced age Complicates care, management, recovery and prognosis. Likely okay to continue with systemic anticoagulation with only mild hematuria. Patient tolerating room air, so saline nasal rinses are likely sufficient. Patient is verified is a full code and sees Dr. Whyte as an outpatient. HPI Consult Data Date of Consult: 09/12/23 HPI Narrative HPI Narrative: SANTI NAM is a 73 F, with past medical history listed below, who presents to [facility] on 09/11/2023 secondary to cloudy urine, fever, chills and 1 episode of vomiting. Patient also noted to have a temperature of 102 ?F at home and is currently receiving chemotherapy for colon cancer. Patient is on anticoagulation at baseline and has a history of smoking in the past. In the ER, patient was noted to be febrile at 101.6 ?F, tachycardic at 125 bpm and hypertensive. Patient was saturating well on room air at that time. Initial laboratory workup showed a white blood cell count of 9.5, hemoglobin of 11.3 and platelets of 274. Chemistries were significant for a bicarbonate of 19, creatinine of 2.1 and a BUN of 18. Glucose was elevated at 182 along with lactate at 3.8. Patient did have some mild elevation of alkaline phosphatase and AST. UTI was highly suggestive of urinary tract infection. Patient was pancultured and started on empiric antibiotics. Patient did receive sepsis fluids. When patient was evaluated by the hospitalist, a CT of the abdomen and pelvis was ordered. This ended up showing bilateral obstruction. Patient was subsequently taken to the OR and had stents placed. Patient was hypotensive and was transferred to the intensive care unit for monitoring overnight. On my evaluation this morning, patient was feeling better. Patient did have a maximum temperature of 38.7 ?C. Patient did have Levophed ordered, but this did not have to be administered. Patient had reported some backache and some mild nausea, but no emesis. Patient did have chills overnight. Patient overall felt subjectively slightly improved compared to previous, but not back to baseline. Patient does not report any antibiotic allergies. No rashes have been reported. Patient states that she has continued to make urine. Patient is not reporting any palpitations. Patient had not reported any hemoptysis, hematochezia or melena. Review of systems otherwise negative from a constitutional, HEENT, respiratory, cardiovascular, GI, genitourinary, musculoskeletal, skin, neurologic, psychiatric and hematologic system unless stated above. [facility] Medical History Acid reflux Adenocarcinoma of cecum Anemia Bilateral hydronephrosis Encounter for adjustment or management of vascular access device Peritoneal metastases s/p port placement Home Medications omeprazole 20 mg capsule,delayed release 40 mg PO DAILY ACID REFLUX 01/12/17 [History Last Taken 09/11/23] loperamide 2 mg capsule 2 mg PO Q6H PRN DIARRHEA 08/01/23 [History Last Taken 09/10/23] loratadine 10 mg tablet (Claritin) 10 mg PO DAILY ALLERGIES 08/01/23 [History Last Taken 09/11/23] amlodipine 5 mg tablet 5 mg PO DAILY BLOOD PRESSURE 09/11/23 [History Last Taken 09/11/23] apixaban 5 mg tablet (Eliquis) 5 mg PO BID BLOOD THINNER 09/11/23 [History Last Taken 09/11/23] magnesium oxide 400 mg PO DAILY SUPPLEMENT 09/11/23 [History Last Taken 09/10/23] metoclopramide HCl 10 mg tablet 10 mg PO Q6H PRN NAUSEA 09/11/23 [History Last Taken 09/11/23] Allergy/AdvReac Type Severity Reaction Status Date / Time No Known Allergies Allergy Verified 09/11/23 14:02 Family History Mother Hypertension Father Melanoma Brother Melanoma Aunt Breast cancer Surgical History History of bowel resection History of Hx of ileostomy S/P laparoscopic colectomy s/p port placement (~12/06/18) Social History Smoking Status: Former smoker alcohol intake: current alcohol intake frequency: holidays/special occasions only substance use type: does not use caffeine: Yes what type of physical activity do you participate in: walking and weight training frequency: daily seatbelt use: always do you feel safe at home: Yes additional 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 General Appearance: cooperative and well developed HEENT normocephalic, head/scalp atraumatic and hearing grossly normal bilaterally Eyes PERRL, EOMs intact bilaterally and conjunctivae normal Neck supple General: normal visual inspection and trachea midline Chest inspection of chest normal Resp normal respiratory effort, normal air movement and no use of accessory muscles Auscultation: clear to auscultation bilaterally; Negative for rales, rhonchi or wheezes Cardio S1 normal heart sound, S2 normal heart sound, no murmurs, no rub and no gallops Rate: tachycardic GI normal to inspection, nondistended, normoactive bowel sounds Bladder / Kidney Exam: catheter in place urethral (Cloudy urine noted with pink-tinged) Extremity General Extremity: Negative for clubbing or edema Skin no rashes or lesions noted, no wounds, no jaundice, no petechiae and no mottling Neuro oriented x3, CN's II-XII intact bilaterally and moves all extremities Psych mental status grossly normal, thought process normal and cooperative Medical Records Data Attestation: I reviewed the patient's medical records Lab / Micro Data Attestation: I reviewed the patient's lab results. 09/12/23 04:58 09/12/23 04:58 Labs: Laboratory Results - last 24 hr 09/11/23 15:10: WBC 9.5, RBC 4.04 L, Hgb 11.3 L, Hct 36.0 L, MCV 89.1, MCH 28.0, MCHC 31.4 L, RDW Std Deviation 55.0 H, RDW Coeff of Ismael 17.1 H, Plt Count 274, MPV 9.4, Immature Gran % (Auto) 1.200 H, Neut % (Auto) 83.1 H, Lymph % (Auto) 2.6 L, [place] % (Auto) 12.8 H, Eos % (Auto) 0.0, Baso % (Auto) 0.3, Absolute Neuts (auto) 7.9 H, Absolute Lymphs (auto) 0.25 L, Nucleated RBC % 0, Differential Comment SCANNED, PT 16.9 H, INR 1.4, APTT 29.3, Sodium 132 L, Potassium 4.1, Chloride 104, Carbon Dioxide 19.0 L, Anion Gap 9, BUN 18, Creatinine 2.10 H, Estim Creat Clear Calc 23.89, Est GFR (MDRD) Af Amer 30 L, Est GFR (MDRD) Non-Af 25 L, BUN/Creatinine Ratio 8.6 L, Glucose 182 H, Lactic Acid 3.8 H*, Calcium 9.2, Total Bilirubin 1.00, AST 124 H, ALT 47, Alkaline Phosphatase 199 H, Total Protein 7.2, Albumin 3.1 L, Globulin 4.1, Albumin/Globulin Ratio 0.8 L 09/11/23 15:11: Urine Color Yellow, Urine Clarity Sl. Cloudy, Urine pH 6.0, Ur Specific [place] 1.015, Urine Protein 30 H, Urine Glucose (UA) Normal, Urine Ketones Negative, Urine Occult Blood 50 H, Urine Nitrite Positive H, Urine Bilirubin Negative, Urine Urobilinogen Normal, Ur Leukocyte Esterase 500 H, Urine RBC 0-5 SEEN, Urine WBC >100 SEEN, Ur Squamous Epith Cells 0-5 SEEN, Urine Bacteria 2+, Urine Mucus 0 SEEN 09/11/23 18:05: MRSA (PCR) Cancelled 09/11/23 19:40: Lactic Acid 1.7 09/11/23 23:14: MRSA (PCR) Negative 09/12/23 04:58: WBC 10.8, RBC 3.41 L, Hgb 9.6 L, Hct 30.5 L, MCV 89.4, MCH 28.2, MCHC 31.5 L, RDW Std Deviation 56.0 H, RDW Coeff of Ismael 17.2 H, Plt Count 240, MPV 9.4, Immature Gran % (Auto) 0.300, Neut % (Auto) 89.4 H, Lymph % (Auto) 3.0 L, [place] % (Auto) 6.4, Eos % (Auto) 0.4, Baso % (Auto) 0.5, Absolute Neuts (auto) 9.7 H, Absolute Lymphs (auto) 0.32 L, Nucleated RBC % 0, Differential Comment SCANNED, Sodium 140, Potassium 3.8, Chloride 111 H, Carbon Dioxide 21.0, Anion Gap 8, BUN 20 H, Creatinine 2.20 H, Estim Creat Clear Calc 22.81, Est GFR (MDRD) Af Amer 28 L, Est GFR (MDRD) Non-Af 23 L, BUN/Creatinine Ratio 9.1 L, Glucose 108 H, Calcium 7.8 L, Phosphorus 1.8 L, Magnesium 1.2 L, Total Bilirubin 1.60 H, AST 39 H, ALT 22, Alkaline Phosphatase 109, Total Protein 5.2 L, Albumin 2.2 L, Globulin 3.0, Albumin/Globulin Ratio 0.7 L Micro: Microbiology 09/11/23 15:10 Blood Culture (Wb) - Port Blood Culture - Preliminary Imagaing Radiology Impression Chest X-Ray 09/11/23 15:50 IMPRESSION: Basilar atelectasis. Electronically Signed: Christiano Hooks DO at 17:28 EST Reading Location ID and State: [facility] / [place] Tel [phone], Service support , Abdomen/Pelvis CT 09/11/23 16:23 IMPRESSION: Bilateral hydronephrosis, right more than left. Right perinephric stranding is noted since the previous study. Bilateral hydroureters. Mild wall thickening of the urinary bladder. Mild colonic diverticulosis. Increasing pulmonary nodules in the visualized lung bases. Relatively stable right lower lobe parenchymal lesion. Electronically Signed: Christiano Hooks DO at 17:13 EST Reading Location ID and State: [facility] / [place] Tel [phone], Service support , Charges/Coding Visit Charges Inpatient E&M: 61749 Init Hosp L3
[2023-09-12] MEDS: APIXABAN 5 MG TABLET PO ×2 (10:21→21:35)
[2023-09-12] MEDS: Pantoprazole Sodium 40 MG Tablet PO (10:21)
[2023-09-12] MEDS: Loperamide 2 MG Capsule 4 MG PO ×2 (10:22→16:14)
[2023-09-12] MEDS: Acetaminophen 325 MG Tablet 650 MG PO ×2 (14:36→21:51)
--- NOTE | 2023-09-12 14:58 | PCM.PN.HOSP ---
Reason for Visit Reason for Visit: Diagnoses Sepsis, unspecified organism (09/11/23) Secondary malignant neoplasm of retroperitoneum and peritoneum (09/11/23) Dehydration (09/11/23) Acidosis, unspecified (09/11/23) Unspecified hydronephrosis (09/11/23) Acute kidney failure, unspecified (09/11/23) Urinary tract infection, site not specified (09/11/23) Tachycardia, unspecified (09/11/23) Fever, unspecified (09/11/23) Subjective Subjective Seen and examined today, her white blood cell count today is 10.8, hemoglobin is 9.6. I received culture results from her outpatient urine specimen-it grew out Klebsiella which is pansensitive, her Flagyl and vancomycin were stopped, patient's blood pressure today appears stable, she is still febrile. I talked to urology today (Dr. Curran) discussed the case with her. Objective Data Objective Data Vital Signs: Vital Signs Temp Pulse Resp BP Pulse Ox O2 Del Method 101.2 F H 104 H 29 H 130/66 H 100 Room Air 09/12/23 14:00 09/12/23 14:00 09/12/23 14:00 09/12/23 14:00 09/12/23 14:00 09/12/23 14:00 Oxygen Delivery Method Room Air Weight: 77.2 kg Body Mass Index (BMI) 26.6 Intake & Output: Intake and Output for Last 24 Hours 09/10/23 09/11/23 09/12/23 23:59 23:59 23:59 Intake Total 3691.17 / 3691.17 1725.33 / 1725.33 Output Total 957 / 957 1553 / 1553 Balance 2734.17 / 2734.17 172.33 / 172.33 Lab / Micro Data 09/12/23 04:58 09/12/23 04:58 Labs: Laboratory Results - last 24 hr 09/11/23 15:10: WBC 9.5, RBC 4.04 L, Hgb 11.3 L, Hct 36.0 L, MCV 89.1, MCH 28.0, MCHC 31.4 L, RDW Std Deviation 55.0 H, RDW Coeff of Ismael 17.1 H, Plt Count 274, MPV 9.4, Immature Gran % (Auto) 1.200 H, Neut % (Auto) 83.1 H, Lymph % (Auto) 2.6 L, [place] % (Auto) 12.8 H, Eos % (Auto) 0.0, Baso % (Auto) 0.3, Absolute Neuts (auto) 7.9 H, Absolute Lymphs (auto) 0.25 L, Nucleated RBC % 0, Differential Comment SCANNED, PT 16.9 H, INR 1.4, APTT 29.3, Sodium 132 L, Potassium 4.1, Chloride 104, Carbon Dioxide 19.0 L, Anion Gap 9, BUN 18, Creatinine 2.10 H, Estim Creat Clear Calc 23.89, Est GFR (MDRD) Af Amer 30 L, Est GFR (MDRD) Non-Af 25 L, BUN/Creatinine Ratio 8.6 L, Glucose 182 H, Lactic Acid 3.8 H*, Calcium 9.2, Total Bilirubin 1.00, AST 124 H, ALT 47, Alkaline Phosphatase 199 H, Total Protein 7.2, Albumin 3.1 L, Globulin 4.1, Albumin/Globulin Ratio 0.8 L 09/11/23 15:11: Urine Color Yellow, Urine Clarity Sl. Cloudy, Urine pH 6.0, Ur Specific [place] 1.015, Urine Protein 30 H, Urine Glucose (UA) Normal, Urine Ketones Negative, Urine Occult Blood 50 H, Urine Nitrite Positive H, Urine Bilirubin Negative, Urine Urobilinogen Normal, Ur Leukocyte Esterase 500 H, Urine RBC 0-5 SEEN, Urine WBC >100 SEEN, Ur Squamous Epith Cells 0-5 SEEN, Urine Bacteria 2+, Urine Mucus 0 SEEN 09/11/23 18:05: MRSA (PCR) Cancelled 09/11/23 19:40: Lactic Acid 1.7 09/11/23 23:14: MRSA (PCR) Negative 09/12/23 04:58: WBC 10.8, RBC 3.41 L, Hgb 9.6 L, Hct 30.5 L, MCV 89.4, MCH 28.2, MCHC 31.5 L, RDW Std Deviation 56.0 H, RDW Coeff of Ismael 17.2 H, Plt Count 240, MPV 9.4, Immature Gran % (Auto) 0.300, Neut % (Auto) 89.4 H, Lymph % (Auto) 3.0 L, [place] % (Auto) 6.4, Eos % (Auto) 0.4, Baso % (Auto) 0.5, Absolute Neuts (auto) 9.7 H, Absolute Lymphs (auto) 0.32 L, Nucleated RBC % 0, Differential Comment SCANNED, Sodium 140, Potassium 3.8, Chloride 111 H, Carbon Dioxide 21.0, Anion Gap 8, BUN 20 H, Creatinine 2.20 H, Estim Creat Clear Calc 22.81, Est GFR (MDRD) Af Amer 28 L, Est GFR (MDRD) Non-Af 23 L, BUN/Creatinine Ratio 9.1 L, Glucose 108 H, Calcium 7.8 L, Phosphorus 1.8 L, Magnesium 1.2 L, Total Bilirubin 1.60 H, AST 39 H, ALT 22, Alkaline Phosphatase 109, Total Protein 5.2 L, Albumin 2.2 L, Globulin 3.0, Albumin/Globulin Ratio 0.7 L Micro: Microbiology 09/11/23 15:10 Urine, Clean Catch Urine Culture - Preliminary GNR lactose 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 Electronically Signed: Christiano Hooks DO at 17:28 EST , Abdomen/Pelvis CT 09/11/23 16:23 IMPRESSION: Bilateral hydronephrosis, right more than left. Right perinephric stranding is noted since the previous study. Bilateral hydroureters. Mild wall thickening of the urinary bladder. Mild colonic diverticulosis. Increasing pulmonary nodules in the visualized lung bases. Relatively stable right lower lobe parenchymal lesion. Electronically Signed: Christiano Hooks DO at 17:13 EST , Physical Exam Const alert, oriented x3, no apparent distress and healthy appearing General Appearance: cooperative, well kempt and well developed Orientation / Consciousness: awake, oriented to person, oriented to place and oriented to time HEENT normocephalic, head/scalp atraumatic and moist oral mucous membranes Eyes PERRL, EOMs intact bilaterally and conjunctivae normal Neck supple, no JVD, thyroid normal and no carotid bruits General: trachea midline Resp normal respiratory effort, no retractions, no use of accessory muscles and clear to auscultation bilaterally Auscultation: Negative for rales, rhonchi or wheezes Cardio regular rate, regular rhythm, S1 normal heart sound, S2 normal heart sound, no murmurs, no rub and no gallops GI normal to inspection, nondistended, normoactive bowel sounds, soft to palpation, non-tender and non-distended Extremity no clubbing, cyanosis or edema Skin no rashes or lesions noted General Skin Exam: no breakdown Neuro oriented x3, CN's II-XII intact bilaterally, moves all extremities, no focal motor deficits and no sensory deficits noted Sensorium / Orientation: awake and alert Speech: speech normal Psych affect normal Assessment & Plan Assessment/Plan (1) Sepsis: PLAN: Plan 1. Sepsis secondary to Klebsiella bacteremia from urinary tract infection-continue cefepime, await final blood culture results-preliminary blood culture results show a gram-negative geeta. I talked with urology about her care today, they will see the patient tomorrow. 2 acute kidney injury-patient will remain on IV fluids at this time, labs will be repeated tomorrow- patient's creatinine today was 2.2 #3 chronic use of Eliquis-this is secondary to past history of PE/VTE-patient will continue on Eliquis #4 colon cancer with peritoneal metastases-patient's last chemotherapy was a week ago, she follows with Dr. Whyte #5 bilateral hydronephrosis-status post cystoscopy with bilateral ureteral stent insertion 09/11/2023, urology continues to participate in her care Clinical time spent by myself addressing the patient's medical issues, reviewing all of her data, and collaborating with patient's care team: 35 minutes Charges/Coding Visit Charges Inpatient E&M: 65206 Subs Hosp L2
--- NOTE | 2023-09-12 15:15 | CASEMGMT ---
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 Pt voices understanding and consents to?assessment?at this time.? Pt resting in bed in no distress at this time.? Pt is A/O at this time and answers all questions appropriately.?? Care providers, pharmacy, and demographics verified/updated at this time. PCP: Dr Mckee Specialists: Dr Whyte, oncologist; [facility]; Dr Nati Short, urologist @ [facility] Preferred Pharmacy: [facility] Retail Insurance: MCR, [employer] MCR Prescription Benefit: yes Living Will/HPOA: Has both LW and HCPOA, who is her daughter Jocelynn Cooper Ratini LNOK: pt has only one adult child, Jocelynn, who lives in [place] Living Arrangements: Patient lives alone in a raised ranch with 12 steps and railing from the the garage, but only 4 steps through the main entrance. Patient states she is independent w/ADL's and IADL's and able to ambulate stairs. Neighbors check on her almost daily. Transportation: self, neighbor DME: Patient has BSC and walker available at home, but does not use. She also has grab bars. She denies needs for any further DME. SNF/HHC: No previous SNF. [facility] previously. Denies need for HHC and no needs identified. Pt wishes to return home and states has no concerns with going home at time of discharge.? CM?to follow for any discharge planning/needs.? Pt voices no concerns/needs at this time.? Advised pt to ask for?CM?if any questions/concerns/needs arise.? Voices understanding. Plan: Patient to discharge home with family support and discharge plans in place. Melida GONZALEZN BASSAM CM
[2023-09-12] MEDS: Lactated Ringers 1,000 ML 125 ML IV (18:44)
[2023-09-12] MEDS: Cefepime HCl 2 GM in 0.9% Normal Saline (100mL MB+) 100 ML IV (21:35)
[2023-09-13] VITALS (25 sets, daily range): BP systolic 89–157; BP diastolic 52–80; PULSE 88–115; RESP 15–26; TEMP 36.9–38.4; O2SAT 92–100; BMI 27.3
[2023-09-13] MEDS: Lactated Ringers 1,000 ML 125 ML IV ×3 (02:49→18:25)
[2023-09-13 03:02] LABS: Absolute Lymphocyte Count 0.39 X10^3/uL (0.83-4.51); Absolute Neutrophil Count 7.2 X10^3/uL (2.0-7.7); Basophil# 0.03 X10^3/uL; Basophil% 0.4 % (0-1); Eosinophil# 0.19 X10^3/uL; Eosinophils% 2.2 % (0-5); Hematocrit 26.2 % (37-47); Hemoglobin 8.2 g/dL (12.0-15.0); Lymphocyte # 0.39 X10^3/ul (0.83-4.51); Lymphocyte % 4.6 % (19-41); Mean Corp Hgb Conc 31.3 g/dL (32-36); Mean Corpuscular Hgb 28.5 pg (27.0-32.0); Mean Platelet Vol. 9.4 fl (6.2-12.0); Monocyte# 0.54 X10^3/uL; Monocyte% 6.4 % (0-10); NRBC Flagged by Analyzer 0 % (0-5); Neutrophil # 7.23 X10^3/uL (2.7-7.7); Neutrophil % 85.1 % (47-70); POSITIVE DIFFERENTIAL YES; POSITIVE MORPHOLOGY YES; Platelet Count 182 K/mm3 (150-450); RBC Distribution Width CV 17.4 % (11.6-14.6); Red Blood Count 2.88 M/mm3 (4.2-5.4); White Blood Count 8.5 K/mm3 (4.4-11.0)
[2023-09-13 03:09] LABS: Differential Indicated SCAN CRITERIA MET
[2023-09-13 03:21] LABS: ALB/GLOB Ratio 0.6 RATIO (0.9-2.4); AST(SGOT) 17 U/L (15-37); Alanine Aminotransfer ALT/SGPT 16 U/L (13-56); Albumin, Serum 1.9 g/dL (3.2-5.0); Alkaline Phosphatase 86 U/L (45-117); Anion Gap 7 (5-15); BUN 30 mg/dL (7-18); Calcium,Total 7.3 mg/dL (8.5-10.1); Chloride 112 mmol/L (98-107); Differential Comment SCANNED; EST Glomerular Filtration Rate 20 mL/min (>60); Est Glom Filt Rate - Afr Amer 24 mL/min (>60); Estimated Creatinine Clearance 20.07 ml/min; Globulin 3.1 g/dL (2.2-4.2); Glucose 94 mg/dL (74-106); Potassium 4.1 mmol/L (3.5-5.1); Sodium Level 141 mmol/L (136-145)
--- NOTE | 2023-09-13 07:36 | PCM.PN.HOSP ---
Reason for Visit Reason for Visit: Diagnoses Sepsis, unspecified organism (09/11/23) Secondary malignant neoplasm of retroperitoneum and peritoneum (09/11/23) Dehydration (09/11/23) Acidosis, unspecified (09/11/23) Unspecified hydronephrosis (09/11/23) Acute kidney failure, unspecified (09/11/23) Urinary tract infection, site not specified (09/11/23) Tachycardia, unspecified (09/11/23) Fever, unspecified (09/11/23) Objective Data Objective Data Vital Signs: Vital Signs Temp Pulse Resp BP Pulse Ox O2 Del Method 100.2 F H 97 20 H 110/59 L 92 Room Air 09/13/23 04:00 09/13/23 06:00 09/13/23 06:00 09/13/23 06:00 09/13/23 06:00 09/13/23 06:00 Oxygen Delivery Method Room Air Weight: 174 lb 9.698 oz Body Mass Index (BMI) 27.3 Intake & Output: Intake and Output for Last 24 Hours 09/11/23 09/12/23 09/13/23 23:59 23:59 23:59 Intake Total 3691.17 / 3691.17 3399.9933 / 3399.9933 1000 / 1000 Output Total 957 / 957 3203 / 3203 675 / 675 Balance 2734.17 / 2734.17 196.9933 / 196.9933 325 / 325 Lab / Micro Data 09/13/23 02:55 09/13/23 02:55 Labs: Laboratory Results - last 24 hr 09/13/23 02:55: WBC 8.5, RBC 2.88 L, Hgb 8.2 L, Hct 26.2 L, MCV 91.0, MCH 28.5, MCHC 31.3 L, RDW Std Deviation 58.0 H, RDW Coeff of Ismael 17.4 H, Plt Count 182, MPV 9.4, Immature Gran % (Auto) 1.300 H, Neut % (Auto) 85.1 H, Lymph % (Auto) 4.6 L, [place] % (Auto) 6.4, Eos % (Auto) 2.2, Baso % (Auto) 0.4, Absolute Neuts (auto) 7.2, Absolute Lymphs (auto) 0.39 L, Nucleated RBC % 0, Differential Comment SCANNED, Sodium 141, Potassium 4.1, Chloride 112 H, Carbon Dioxide 22.0, Anion Gap 7, BUN 30 H, Creatinine 2.50 H, Estim Creat Clear Calc 20.07, Est GFR (MDRD) Af Amer 24 L, Est GFR (MDRD) Non-Af 20 L, BUN/Creatinine Ratio 12.0, Glucose 94, Calcium 7.3 L, Total Bilirubin 1.00, AST 17, ALT 16, Alkaline Phosphatase 86, Total Protein 5.0 L, Albumin 1.9 L, Globulin 3.1, Albumin/Globulin Ratio 0.6 L Micro: Microbiology 09/11/23 15:10 Urine, Clean Catch Urine Culture - Final Klebsiella pneumoniae sp pneum 09/11/23 15:10 Blood Culture (Wb) - Port Blood Culture - Preliminary Physical Exam Narrative Last night she had fever Tmax 100.9 Fahrenheit. Tylenol was given. Currently 99 Fahrenheit. Patient on room air. Had bilateral ureteric stent for hydronephrosis. Patient also has colon cancer for about 6 to 7 years. She had redo surgery on April 2023 with ileostomy. Patient is on chemotherapy after surgery by Dr. Whtye. Physical exam: General: Alert, Oriented x3, Cooperative HEENT: Atraumatic, PERRLA, EOMI, Normocephalic Oral: Oral mucosa moist. No Gingival or Mucosal Lesions/ Ulcerations Neck: Supple, No JVD, Negative Carotid Bruits Chest/lungs: Left subclavicular Mediport. Air entry diminished in bilateral lung bases. No crepitation/rhonchi Cardiovascular: Regular rate, Regular Rhythm, Normal S1, Normal S2, No murmurs Abdomen: Ileostomy, bilious liquid in the bag. Bowel Sounds Present, Soft, Non Tender, Non-Distended : Dennis catheter, dark color urine with solomon color residue/debris lining on the tube. No renal angle tenderness. No suprapubic tenderness. Extremities: No edema, Capillary Refill Less than 3 Seconds Skin: No rashes, No breakdown Musculoskeletal: No Tenderness to Palpation of Joints or Extremities Neurological: Cranial nerves II-XII grossly intact, DTR 2+/4. No acute focal neurological deficit. Psych/Mental Status: Normal Affect, Appropriate. Assessment & Plan Assessment/Plan (1) Sepsis: PLAN: Plan 73-year-old female was admitted for fever, temperature 102 Fahrenheit at home chills, nausea vomiting, temperature and cloudy urine/UTI 1. 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 Urine culture Klebsiella pneumoniae. Continue cefepime urologist, Dr. Morgan lopez is consulted. Patient had bilateral ureteric stents on 09/11. 2. Acute kidney injury-patient: Continue IV fluids at this time, BUNs/creatinine 30/2.5. Electrolytes in normal range except chloride 112. 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 She had bowel resection and ileostomy in the past and then reversed and she again required surgery in April 2023 with ileostomy. 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 regional facilities manager 09/11/23 15:10 Urine, Clean Catch Urine Culture - Final Klebsiella pneumoniae sp pneum Laboratory Results 09/13/23 02:55: WBC 8.5, RBC 2.88 L, Hgb 8.2 L, Hct 26.2 L, MCV 91.0, MCH 28.5, MCHC 31.3 L, RDW Std Deviation 58.0 H, RDW Coeff of Ismael 17.4 H, Plt Count 182, MPV 9.4, Immature Gran % (Auto) 1.300 H, Neut % (Auto) 85.1 H, Lymph % (Auto) 4.6 L, [place] % (Auto) 6.4, Eos % (Auto) 2.2, Baso % (Auto) 0.4, Absolute Neuts (auto) 7.2, Absolute Lymphs (auto) 0.39 L, Nucleated RBC % 0, Differential Comment SCANNED, Sodium 141, Potassium 4.1, Chloride 112 H, Carbon Dioxide 22.0, Anion Gap 7, BUN 30 H, Creatinine 2.50 H, Estim Creat Clear Calc 20.07, Est GFR (MDRD) Af Amer 24 L, Est GFR (MDRD) Non-Af 20 L, BUN/Creatinine Ratio 12.0, Glucose 94, Calcium 7.3 L, Total Bilirubin 1.00, AST 17, ALT 16, Alkaline Phosphatase 86, Total Protein 5.0 L, Albumin 1.9 L, Globulin 3.1, Albumin/Globulin Ratio 0.6 L Charges/Coding Visit Charges Inpatient E&M: 03469 Subs Hosp L3
[2023-09-13] MEDS: Pantoprazole Sodium 40 MG Tablet PO (09:13)
[2023-09-13] MEDS: APIXABAN 5 MG TABLET PO ×2 (09:13→20:49)
[2023-09-13] MEDS: Loratadine 10 MG Tablet PO (09:13)
[2023-09-13] MEDS: Acetaminophen 325 MG Tablet 650 MG PO ×2 (09:17→20:35)
--- NOTE | 2023-09-13 09:37 | PN.CC_ITS ---
Assessment & Plan Assessment/Plan (1) MAJO (acute kidney injury): (2) Bilateral hydronephrosis: (3) Sepsis: (4) Peritoneal metastases: PLAN: Plan RECOMMENDATIONS: 1. Consider narrowing antibiotic spectrum given urine culture 2. Okay to continue Eliquis for now 3. Okay to leave the intensive care unit from my perspective 4. Hemodynamically stable on room air. Will sign off from a critical care perspective IMPRESSIONS: 1. Sepsis secondary to UTI with obstructing stones Patient does have positive blood and urine cultures at this time showing Klebsiella pneumonia that is relatively sensitive. Patient is on broad-spectrum antibiotics, but could be narrowed from my perspective. Patient responded to initial fluid bolus and has not required additional interventions in the last 24 hours. Patient remains on room air, so would likely recommend a fluid challenge if patient does develop lowering blood pressure. Patient has had high fevers, but no pressors needed to be initiated. Okay to transfer out of the intensive care unit. Will sign off from a critical care perspective 2. Acute kidney injury Clinical suspicion for prerenal and postrenal etiology. Patient did have obstructing stones that have been relieved. Patient also had some hypotension related to problem #1. Will continue to monitor closely. Patient does not require any renal replacement therapy at this time. Anticipate aggressive electrolyte repletion will be required moving forward. Patient can follow-up with urology as an outpatient for removal of stents. 3. Colon cancer with peritoneal metastasis on chemotherapy with history of PE-DVT/seasonal allergies/advanced age Complicates care, management, recovery and prognosis. Likely okay to continue with systemic anticoagulation with only mild hematuria. Patient tolerating room air, so saline nasal rinses are likely sufficient. Patient is verified is a full code and sees Dr. Whyte as an outpatient. Subjective Subjective Patient did well overnight. Patient was febrile, but has remained hemodynamically stable. No fluid boluses or supplemental oxygen has been required. Patient did report decreased sleep associated with assessments. Objective Data Objective Data Vital Signs: Vital Signs Temp Pulse Resp BP Pulse Ox O2 Del Method 37.2 C 106 H 18 126/73 H 96 Room Air 09/13/23 08:00 09/13/23 09:00 09/13/23 09:00 09/13/23 09:00 09/13/23 09:00 09/13/23 09:00 Oxygen Delivery Method Room Air Weight: 79.2 kg Body Mass Index (BMI) 27.3 Intake & Output: Intake and Output for Last 24 Hours 09/11/23 09/12/23 09/13/23 23:59 23:59 23:59 Intake Total 3691.17 / 3691.17 3399.9933 / 3399.9933 1000 / 1000 Output Total 957 / 957 3203 / 3203 775 / 775 Balance 2734.17 / 2734.17 196.9933 / 196.9933 225 / 225 Lab / Micro Data Attestation: I reviewed the patient's lab results. 09/13/23 02:55 09/13/23 02:55 Labs: Laboratory Results - last 24 hr 09/13/23 02:55: WBC 8.5, RBC 2.88 L, Hgb 8.2 L, Hct 26.2 L, MCV 91.0, MCH 28.5, MCHC 31.3 L, RDW Std Deviation 58.0 H, RDW Coeff of Ismael 17.4 H, Plt Count 182, M PV 9.4, Immature Gran % (Auto) 1.300 H, Neut % (Auto) 85.1 H, Lymph % (Auto) 4.6 L, [place] % (Auto) 6.4, Eos % (Auto) 2.2, Baso % (Auto) 0.4, Absolute Neuts (auto) 7.2, Absolute Lymphs (auto) 0.39 L, Nucleated RBC % 0, Differential Comment SCANNED, Sodium 141, Potassium 4.1, Chloride 112 H, Carbon Dioxide 22.0, Anion Gap 7, BUN 30 H, Creatinine 2.50 H, Estim Creat Clear Calc 20.07, Est GFR (MDRD) Af Amer 24 L, Est GFR (MDRD) Non-Af 20 L, BUN/Creatinine Ratio 12.0, Glucose 94, Calcium 7.3 L, Total Bilirubin 1.00, AST 17, ALT 16, Alkaline Phosphatase 86, T otal Protein 5.0 L, Albumin 1.9 L, Globulin 3.1, Albumin/Globulin Ratio 0.6 L Micro: Microbiology 09/11/23 15:10 Blood Culture (Wb) - Port Blood Culture - Preliminary GNR lactose staffing manager 09/11/23 15:10 Urine, Clean Catch Urine Culture - Final Klebsiella pneumoniae sp pneum Physical Exam Const alert, oriented x3 and no apparent distress Constitutional Narrative: Appears pale and frail, tired. No conversational dyspnea General Appearance: cooperative and well developed HEENT normocephalic, head/scalp atraumatic and hearing grossly normal bilaterally Eyes PERRL, EOMs intact bilaterally and conjunctivae normal Neck supple General: normal visual inspection and trachea midline Chest inspection of chest normal Resp normal respiratory effort, normal air movement and no use of accessory muscles Auscultation: clear to auscultation bilaterally; Negative for rales, rhonchi or wheezes Cardio S1 normal heart sound, S2 normal heart sound, no murmurs, no rub and no gallops Rate: tachycardic GI normal to inspection, nondistended, normoactive bowel sounds Bladder / Kidney Exam: catheter in place urethral (Cloudy urine noted with pink- tinged) Extremity General Extremity: Negative for clubbing or edema Skin no rashes or lesions noted, no wounds, no jaundice, no petechiae and no mottling Neuro oriented x3, CN's II-XII intact bilaterally and moves all extremities Psych mental status grossly normal, thought process normal and cooperative Charges/Coding Visit Charges Inpatient E&M: 69637 Subs Hosp L2
--- NOTE | 2023-09-13 10:39 | PCM.PN.GU ---
Subjective Subjective She is currently sitting up in the chair at bedside. She is starting to feel better today. We had a discussion regarding the fact that I think these issues are likely stemming from neurogenic dysfunction of the bladder. She has had a Dennis catheter at home previously and my feelings are that she will likely need to learn to straight cath at home. We discussed that she will go home with a catheter and learn to cath herself in the office in a few weeks. Objective Data Objective Data Vital Signs: Vital Signs Temp Pulse Resp BP Pulse Ox O2 Del Method 99 F 113 H 20 H 117/64 96 Room Air 09/13/23 08:00 09/13/23 10:00 09/13/23 10:00 09/13/23 10:00 09/13/23 10:00 09/13/23 10:00 Oxygen Delivery Method Room Air Weight: 79.2 kg Body Mass Index (BMI) 27.3 Intake & Output: Intake and Output for Last 24 Hours 09/11/23 09/12/23 09/13/23 23:59 23:59 23:59 Intake Total 3691.17 / 3691.17 3399.9933 / 3399.9933 1000 / 1000 Output Total 957 / 957 3203 / 3203 775 / 775 Balance 2734.17 / 2734.17 196.9933 / 196.9933 225 / 225 Lab / Micro Data 09/13/23 02:55 09/13/23 02:55 Labs: Laboratory Results - last 24 hr 09/13/23 02:55: WBC 8.5, RBC 2.88 L, Hgb 8.2 L, Hct 26.2 L, MCV 91.0, MCH 28.5, MCHC 31.3 L, RDW Std Deviation 58.0 H, RDW Coeff of Ismael 17.4 H, Plt Count 182, MPV 9.4, Immature Gran % (Auto) 1.300 H, Neut % (Auto) 85.1 H, Lymph % (Auto) 4.6 L, [place] % (Auto) 6.4, Eos % (Auto) 2.2, Baso % (Auto) 0.4, Absolute Neuts (auto) 7.2, Absolute Lymphs (auto) 0.39 L, Nucleated RBC % 0, Differential Comment SCANNED, Sodium 141, Potassium 4.1, Chloride 112 H, Carbon Dioxide 22.0, Anion Gap 7, BUN 30 H, Creatinine 2.50 H, Estim Creat Clear Calc 20.07, Est GFR (MDRD) Af Amer 24 L, Est GFR (MDRD) Non-Af 20 L, BUN/Creatinine Ratio 12.0, Glucose 94, Calcium 7.3 L, Total Bilirubin 1.00, AST 17, ALT 16, Alkaline Phosphatase 86, Total Protein 5.0 L, Albumin 1.9 L, Globulin 3.1, Albumin/Globulin Ratio 0.6 L Micro: Microbiology 09/11/23 15:10 Blood Culture (Wb) - Port Blood Culture - Preliminary GNR lactose extension service agent 09/11/23 15:10 Urine, Clean Catch Urine Culture - Final Klebsiella pneumoniae sp pneum Physical Exam Const alert, oriented x3 and no apparent distress HEENT normocephalic and head/scalp atraumatic Narrative: Dennis catheter is draining concentrated yellow urine. Skin no rashes or lesions noted Neuro oriented x3 and CN's II-XII intact bilaterally Psych mental status grossly normal Assessment & Plan Assessment/Plan (1) Bilateral hydronephrosis: (2) MAJO (acute kidney injury): (3) Sepsis: (4) UTI (urinary tract infection): (5) Urinary retention: PLAN: Plan Continue Dennis catheter and bilateral ureteral stents Continue antibiotics and supportive care Plan to further evaluate in the office with straight cath teaching and eventually urodynamics to be done as an outpatient Plan for home with Dennis
[2023-09-13] MEDS: Loperamide 2 MG Capsule 4 MG PO (10:52)
[2023-09-13] MEDS: Cefepime HCl 2 GM in 0.9% Normal Saline (100mL MB+) 100 ML IV (20:50)
[2023-09-14] VITALS (16 sets, daily range): BP systolic 115–152; BP diastolic 66–75; PULSE 70–99; RESP 16–25; TEMP 36.2–37.6; O2SAT 91–100; BMI 27.3
[2023-09-14] MEDS: Lactated Ringers 1,000 ML 125 ML IV ×3 (02:54→19:27)
[2023-09-14] MEDS: Loperamide 2 MG Capsule 4 MG PO (05:10)
[2023-09-14] MEDS: Sodium Chloride 0.65% 1 SPRAY SPRAY.BTL NASAL (05:13)
[2023-09-14] MEDS: APIXABAN 5 MG TABLET PO ×2 (09:22→19:31)
[2023-09-14] MEDS: Pantoprazole Sodium 40 MG Tablet PO (09:28)
--- NOTE | 2023-09-14 09:42 | WOUNDNOTE ---
Was asked to see patient for ostomy change. patient changes appliance at home, but did not bring any supplies with her. patient asking that the appliance be changed today. patient currently uses a 2 piece Mary appliance with a paste ring. emptied appliance for 200cc's liquid brown/green stool. removed the appliance. stoma is well budded and pink. peristomal skin is intact. cleansed skin with warm water. pat dry. applied a new 2 piece flat Murray appliance with an [employer] paste ring. pt tolerated well. pt very appreciative of care. denies further needs at this time.
--- NOTE | 2023-09-14 09:46 | CON.PCM.RE_ITS ---
Documented by User: PAYAL Almazan 09/14/23 10:00 Assessment & Plan Assessment/Plan (1) MAJO (acute kidney injury): (2) Bilateral hydronephrosis: PLAN: Plan This is a very pleasant 73-year-old female with past medical history significant for colon cancer with metastasis who presented to the emergency room on September 11 with nausea, vomiting, abdominal pain, fever and chills and feeling unwell, admitted for concern for sepsis from UTI. CT of abdomen and pelvis showed bilateral hydronephrosis right greater than left, she was evaluated by urology and underwent bilateral stent placement. Nephrology consulted in view of rising creatinine. Patient is known to our group from previous consultation in hospital May 2023 for MAJO secondary to significant volume depletion. Patient never required any renal placement therapy. Her serum creatinine peaked 10mg/dL on admission and with IV fluids/volume expansion kidney function improved daily. Her creatinine was 1.4 by time of hospital discharge. Patient did have lab work on 08/03 her creatinine was 1.27. For this admission on September 11 creatinine 2.10, her creatinine peaked 2.50 yesterday, we ordered stat labs today and her creatinine just resulted at 2.06 mg/dL. Overall renal function is improving. Patient is nonoliguric. She is on IV fluids. Blood pressures were low which may have also contributed to MAJO along with obstructive uropathy. There is no acute indication for PRODUCT MANAGEMENT CONSULTANT. Blood pressures have improved, she is not on any antihypertensives. Patient does not take NSAIDs. Patient does have history of metabolic acidosis from MAJO and diarrhea. She was on bicarb. Bicarb level is 22. She does not need any further sodium bicarbonate once discharged from hospital. We will continue to monitor patient along with you. Labs ordered for tomorrow. Further orders forthcoming as hospitalization evolves, thank you for allowing us to participate in the care of Ms. Nam. HPI Consult Data Date of Consult: 09/14/23 HPI Narrative HPI Narrative: SANTI NAM, is a 73 F with past medical history significant for colon cancer (initially diagnosed 2016) with metastasis into her bladder requiring partial cystectomy in April 2023 currently undergoing chemotherapy for Dr. Whyte who presented to the emergency room with complaints of nausea, vomiting, fever and chills. Patient was admitted for concerns for sepsis from UTI, also through workup of CT of abdomen and pelvis she was found to have bilateral hydronephrosis. Urology consulted and patient did undergo cystoscopy with bilateral ureteral stent insertion on 09/11. Nephrology consulted for MAJO. Patient is known to our group from previous hospitalization back in May 2023. At that time she was admitted for MAJO which was secondary to significant volume depletion. Her creatinine peaked at 10 on admission but improved daily with IV fluids, volume resuscitation. Patient never required any PRODUCT MANAGEMENT CONSULTANT. Patient reports her appetite has improved. She denies any nausea, vomiting or diarrhea last few days. Last lab work yesterday creatinine 2.50. On admission creatinine was 2.1. [facility] Medical History Acid reflux Adenocarcinoma of cecum Anemia Bilateral hydronephrosis Encounter for adjustment or management of vascular access device Peritoneal metastases s/p port placement Home Medications omeprazole 20 mg capsule,delayed release 40 mg PO DAILY ACID REFLUX 01/12/17 [History Last Taken 09/11/23] loperamide 2 mg capsule 2 mg PO Q6H PRN DIARRHEA 08/01/23 [History Last Taken 09/10/23] loratadine 10 mg tablet (Claritin) 10 mg PO DAILY ALLERGIES 08/01/23 [History Last Taken 09/11/23] amlodipine 5 mg tablet 5 mg PO DAILY BLOOD PRESSURE 09/11/23 [History Last Taken 09/11/23] apixaban 5 mg tablet (Eliquis) 5 mg PO BID BLOOD THINNER 09/11/23 [History Last Taken 09/11/23] magnesium oxide 400 mg PO DAILY SUPPLEMENT 09/11/23 [History Last Taken 09/10/23] metoclopramide HCl 10 mg tablet 10 mg PO Q6H PRN NAUSEA 09/11/23 [History Last Taken 09/11/23] Allergy/AdvReac Type Severity Reaction Status Date / Time No Known Allergies Allergy Verified 09/11/23 14:02 Family History Mother Hypertension Father Melanoma Brother Melanoma Aunt Breast cancer Surgical History History of bowel resection History of Hx of ileostomy S/P laparoscopic colectomy s/p port placement (~12/06/18) Social History Smoking Status: Former smoker alcohol intake: current alcohol intake frequency: holidays/special occasions only substance use type: does not use caffeine: Yes what type of physical activity do you participate in: walking and weight training frequency: daily seatbelt use: always do you feel safe at home: Yes additional social history: - [employer]-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 No wheezes rhonchi rales noted Abdomen soft, nontender No edema Lab / Micro Data 09/13/23 02:55 09/14/23 09:30 Micro: Microbiology 09/11/23 15:10 Blood Culture (Wb) - Port Blood Culture - Final Klebsiella pneumoniae sp pneum 09/11/23 15:45 Blood Culture (Wb) - Anticubital Right Blood Culture - Preliminary No growth in 48 hours. 09/11/23 15:10 Urine, Clean Catch Urine Culture - Final Klebsiella pneumoniae sp pneum Documented by User: Dr. Florentino Tafoya MD 09/14/23 15:40 Assessment & Plan Assessment/Plan (1) MAJO (acute kidney injury): (2) Bilateral hydronephrosis: PLAN: Plan This is a very pleasant 73-year-old female with past medical history significant for colon cancer with metastasis who presented to the emergency room on September 11 with nausea, vomiting, abdominal pain, fever and chills and feeling unwell, admitted for concern for sepsis from UTI. CT of abdomen and pelvis showed bilateral hydronephrosis right greater than left, she was evaluated by urology and underwent bilateral stent placement. Nephrology consulted in view of rising creatinine. Patient is known to our group from previous consultation in hosp [place] May 2023 for MAJO secondary to significant volume depletion. Patient never required any renal placement therapy. Her serum creatinine peaked 10mg/dL on admission and with IV fluids/volume expansion kidney function improved daily. Her creatinine was 1.4 by time of hospital discharge. Patient did have lab work on 08/03 her creatinine was 1.27. For this admission on September 11 creatinine 2.10, her creatinine peaked 2.50 yesterday, we ordered stat labs today and her creatinine just resulted at 2.06 mg/dL. Overall renal function is improving. Patient is nonoliguric. She is on IV fluids. Blood pressures were low which may have also contributed to MAJO along with obstructive uropathy. There is no acute indication for PRODUCT MANAGEMENT CONSULTANT. Blood pressures have improved, she is not on any antihypertensives. Patient does not take NSAIDs. Patient does have history of metabolic acidosis from MAJO and diarrhea. She was on bicarb. Bicarb level is 22. She does not need any further sodium bicarbonate once discharged from hospital. We will continue to monitor patient along with you. Labs or dered for tomorrow. Further orders forthcoming as hospitalization evolves, thank you for allowing us to participate in the care of Ms. Nam. Seen and examined independently. Baseline creatinine around 1.2. She is currently getting FOLFIRI, recently finished second round. Avastin was held due to recent PE. Presented with fever, pyelonephritis. S/p stent placement, she will likely need Dennis versus self cath. Creatinine is better. Antibiotics as per ID. HPI Consult Data Date of Consult: 09/14/23 [facility] Medical History Acid reflux Adenocarcinoma of cecum Anemia Bilateral hydronephrosis Encounter for adjustment or management of vascular access device Peritoneal metastases s/p port placement Home Medications omeprazole 20 mg capsule,delayed release 40 mg PO DAILY ACID REFLUX 01/12/17 [History Last Taken 09/11/23] loperamide 2 mg capsule 2 mg PO Q6H PRN DIARRHEA 08/01/23 [History Last Taken 09/10/23] loratadine 10 mg tablet (Claritin) 10 mg PO DAILY ALLERGIES 08/01/23 [History Last Taken 09/11/23] amlodipine 5 mg tablet 5 mg PO DAILY BLOOD PRESSURE 09/11/23 [History Last Taken 09/11/23] apixaban 5 mg tablet (Eliquis) 5 mg PO BID BLOOD THINNER 09/11/23 [History Last Taken 09/11/23] magnesium oxide 400 mg PO DAILY SUPPLEMENT 09/11/23 [History Last Taken 09/10/23] metoclopramide HCl 10 mg tablet 10 mg PO Q6H PRN NAUSEA 09/11/23 [History Last Taken 09/11/23] Allergy/AdvReac Type Severity Reaction Status Date / Time No Known Allergies Allergy Verified 09/11/23 14:02 Family History Mother Hypertension Father Melanoma Brother Melanoma Aunt Breast cancer Surgical History History of bowel resection History of Hx of ileostomy S/P laparoscopic colectomy s/p port placement (~12/06/18) Social History Smoking Status: Former smoker alcohol intake: current alcohol intake frequency: holidays/special occasions only substance use type: does not use caffeine: Yes what type of physical activity do you participate in: walking and weight training frequency: daily seatbelt use: always do you feel safe at home: Yes additional social history: - [employer]-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
[2023-09-14 09:52] LABS: Albumin, Serum 1.9 g/dL (3.2-5.0); BUN 26 mg/dL (7-18); BUN/Creat Ratio 12.6 RATIO (10-20); Calcium,Total 8.4 mg/dL (8.5-10.1); Chloride 111 mmol/L (98-107); Creatinine, Serum 2.06 mg/dL (0.55-1.02); EST Glomerular Filtration Rate 25 mL/min (>60); Est Glom Filt Rate - Afr Amer 31 mL/min (>60); Estimated Creatinine Clearance 24.36 ml/min; Glucose 120 mg/dL (74-106); Phosphorus 2.7 mg/dL (2.5-4.9); Potassium 3.8 mmol/L (3.5-5.1); Sodium Level 139 mmol/L (136-145)
--- NOTE | 2023-09-14 11:08 | PCM.PN.HOSP ---
Reason for Visit Reason for Visit: Diagnoses Sepsis, unspecified organism (09/11/23) Secondary malignant neoplasm of retroperitoneum and peritoneum (09/11/23) Dehydration (09/11/23) Acidosis, unspecified (09/11/23) Unspecified hydronephrosis (09/11/23) Acute kidney failure, unspecified (09/11/23) Urinary tract infection, site not specified (09/11/23) Tachycardia, unspecified (09/11/23) Retention of urine, unspecified (09/11/23) Fever, unspecified (09/11/23) Objective Data Objective Data Vital Signs: Vital Signs Temp Pulse Resp BP Pulse Ox O2 Del Method 99.0 F 99 23 H 149/70 H 96 Room Air 09/14/23 09:00 09/14/23 09:00 09/14/23 09:00 09/14/23 09:00 09/14/23 09:00 09/14/23 09:00 Oxygen Delivery Method Room Air Weight: 175 lb 0.752 oz Body Mass Index (BMI) 27.3 Intake & Output: Intake and Output for Last 24 Hours 09/12/23 09/13/23 09/14/23 23:59 23:59 23:59 Intake Total 3399.9933 / 3399.9933 4394.17 / 4394.17 2717.50 / 2717.50 Output Total 3203 / 3203 3125 / 3125 2075 / 2075 Balance 196.9933 / 196.9933 1269.17 / 1269.17 642.50 / 642.50 Lab / Micro Data 09/13/23 02:55 09/14/23 09:30 Labs: Laboratory Results - last 24 hr 09/14/23 09:30: Sodium 139, Potassium 3.8, Chloride 111 H, Carbon Dioxide 24.0, BUN 26 H, Creatinine 2.06 H, Estim Creat Clear Calc 24.36, Est GFR (MDRD) Af Amer 31 L, Est GFR (MDRD) Non-Af 25 L, BUN/Creatinine Ratio 12.6, Glucose 120 H, Calcium 8.4 L, Phosphorus 2.7, Albumin 1.9 L Micro: Microbiology 09/11/23 15:10 Blood Culture (Wb) - Port Blood Culture - Final Klebsiella pneumoniae sp pneum 09/11/23 15:45 Blood Culture (Wb) - Anticubital Right Blood Culture - Preliminary No growth in 48 hours. 09/11/23 15:10 Urine, Clean Catch Urine Culture - Final Klebsiella pneumoniae sp pneum Physical Exam Narrative Fever Tmax 101.1 Fahrenheit last evening at 8 PM. During the daytime patient was afebrile or low-grade fever. Her creatinine went up but she is urinating good; no acute decrease. Had bilateral ureteric stent for hydronephrosis. Patient also has colon cancer for about 6 to 7 years. She had redo surgery on April 2023 with ileostomy. Patient is on chemotherapy after surgery by Dr. Whyte. Physical exam: General: Alert, Oriented x3, Cooperative HEENT: Atraumatic, PERRLA, EOMI, Normocephalic Oral: Oral mucosa moist. No Gingival or Mucosal Lesions/ Ulcerations Neck: Supple, No JVD, Negative Carotid Bruits Chest/lungs: Left subclavicular Mediport. Air entry diminished in bilateral lung bases. No crepitation/rhonchi Cardiovascular: Regular rate, Regular Rhythm, Normal S1, Normal S2, No murmurs Abdomen: Ileostomy, bilious liquid in the bag. Bowel Sounds Present, Soft, Non Tender, Non-Distended : Dennis catheter, clear urine. No renal angle tenderness. No suprapubic tenderness. Extremities: No edema, Capillary Refill Less than 3 Seconds Skin: No rashes, No breakdown Musculoskeletal: No Tenderness to Palpation of Joints or Extremities Neurological: Cranial nerves II-XII grossly intact, DTR 2+/4. No acute focal neurological deficit. Psych/Mental Status: Normal Affect, Appropriate. Assessment & Plan Assessment/Plan (1) Sepsis: PLAN: Plan 73-year-old female was admitted for fever, temperature 102 Fahrenheit at home chills, nausea vomiting, temperature and cloudy urine/UTI 1. 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 Urine culture Klebsiella pneumoniae. Continue cefepime urologist, Dr. Morgan lopez is consulted. Patient had bilateral ureteric stents on 09/11. 09/14: Patient had fever last night 101.1 Fahrenheit. Patient has Klebsiella bacteremia therefore ID consulted. Patient is hemodynamically stable therefore transferred to PCU. 2. Nonoliguric acute kidney injury-: Continue IV fluids at this time, BUNs/creatinine 30/2.5. Electrolytes in normal range except chloride 112. 09/14: Patient was in the hospital May 2023 for MAJO and had peritonitis creatinine peaked at 10 mg/dL which got better and resolved with IV fluid. At this time creatinine peaked to 2.5. Lacquer Coater is consulted. 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 She had bowel resection and ileostomy in the past and then reversed and she again required surgery in April 2023 with ileostomy. #5 bilateral hydronephrosis-status post cystoscopy with bilateral ureteral stent insertion 09/11/2023, urology continues to participate in her care Clinical Impression(s) from Imaging Studies Chest X-Ray 09/11/23 15:50 IMPRESSION: Basilar atelectasis. Abdomen/Pelvis CT 09/11/23 16:23 IMPRESSION: Bilateral hydronephrosis, right more than left. Right perinephric stranding is noted since the previous study. Bilateral hydroureters. Mild wall thickening of the urinary bladder. Mild colonic diverticulosis. Increasing pulmonary nodules in the visualized lung bases. Relatively stable right lower lobe parenchymal lesion. Charges/Coding Visit Charges Inpatient E&M: 72441 Subs Hosp L2
--- NOTE | 2023-09-14 14:51 | PCM.CONS.GEN ---
Assessment & Plan Assessment/Plan (1) Bilateral hydronephrosis: (2) MAJO (acute kidney injury): (3) Sepsis: (4) History of colon cancer: (5) Bacteremia due to Klebsiella pneumoniae: PLAN: Klebs bacteremia due to uti/pyelo - Bilat stents placed 09/11/[address] Curran. Will narrow abx to ceftriaxone. Klebs is R to ampicillin. Plan on discharge home with 10 days po keflex, dosed based on GFR at discharge. Port in place. Will follow, thank you HPI Consult Data Date of Consult: 09/14/23 HPI Narrative Reason for Consultation: bacteremia HPI Narrative: SANTI NAM, is a 73 F with colon cancer, on chemo via L chest port, has ostomy, neurogenic bladder. Admitted 09/11 with 2 days fever, abd pain, n/v, cloudy urine. No dysuria. Admitted on zosyn, seen by urology and critical care. Bilat stents placed 09/11/[address] Curran. Feeling better, out of icu, on cefepime. Some mild dry cough the past week. Full ROS performed and neg except as noted above. [facility] Medical History Acid reflux Adenocarcinoma of cecum Anemia Bilateral hydronephrosis Encounter for adjustment or management of vascular access device Peritoneal metastases s/p port placement Home Medications omeprazole 20 mg capsule,delayed release 40 mg PO DAILY ACID REFLUX 01/12/17 [History Last Taken 09/11/23] loperamide 2 mg capsule 2 mg PO Q6H PRN DIARRHEA 08/01/23 [History Last Taken 09/10/23] loratadine 10 mg tablet (Claritin) 10 mg PO DAILY ALLERGIES 08/01/23 [History Last Taken 09/11/23] amlodipine 5 mg tablet 5 mg PO DAILY BLOOD PRESSURE 09/11/23 [History Last Taken 09/11/23] apixaban 5 mg tablet (Eliquis) 5 mg PO BID BLOOD THINNER 09/11/23 [History Last Taken 09/11/23] magnesium oxide 400 mg PO DAILY SUPPLEMENT 09/11/23 [History Last Taken 09/10/23] metoclopramide HCl 10 mg tablet 10 mg PO Q6H PRN NAUSEA 09/11/23 [History Last Taken 09/11/23] Allergy/AdvReac Type Severity Reaction Status Date / Time No Known Allergies Allergy Verified 09/11/23 14:02 Family History Mother Hypertension Father Melanoma Brother Melanoma Aunt Breast cancer Surgical History History of bowel resection History of Hx of ileostomy S/P laparoscopic colectomy s/p port placement (~12/06/18) Social History Smoking Status: Former smoker alcohol intake: current alcohol intake frequency: holidays/special occasions only substance use type: does not use caffeine: Yes what type of physical activity do you participate in: walking and weight training frequency: daily seatbelt use: always do you feel safe at home: Yes additional social history: - Arthur-Retired 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 09/13/23 02:55 09/14/23 09:30 Labs: Laboratory Results - last 24 hr 09/14/23 09:30: Sodium 139, Potassium 3.8, Chloride 111 H, Carbon Dioxide 24.0, BUN 26 H, Creatinine 2.06 H, Estim Creat Clear Calc 24.36, Est GFR (MDRD) Af Amer 31 L, Est GFR (MDRD) Non-Af 25 L, BUN/Creatinine Ratio 12.6, Glucose 120 H, Calcium 8.4 L, Phosphorus 2.7, Albumin 1.9 L Micro: Microbiology 09/11/23 15:10 Blood Culture (Wb) - Port Blood Culture - Final Klebsiella pneumoniae sp pneum 09/11/23 15:45 Blood Culture (Wb) - Anticubital Right Blood Culture - Preliminary No growth in 48 hours.
[2023-09-14] MEDS: Ceftriaxone 2 GM in 0.9% Normal Saline (50mL MB+) 50 ML IV (16:29)
[2023-09-15 02:12] VITALS: PULSE 92
[2023-09-15] MEDS: Lactated Ringers 1,000 ML 125 ML IV (03:26)
[2023-09-15 04:26] VITALS: BP 157/81; PULSE 92; RESP 14; TEMP 36.2; O2SAT 99
[2023-09-15 05:53] VITALS: BMI 27.4
[2023-09-15 07:05] VITALS: O2SAT 95
[2023-09-15 07:26] LABS: Anion Gap 3 (5-15); BUN 24 mg/dL (7-18); BUN/Creat Ratio 13.2 RATIO (10-20); Calcium,Total 8.5 mg/dL (8.5-10.1); Chloride 112 mmol/L (98-107); Creatinine, Serum 1.82 mg/dL (0.55-1.02); EST Glomerular Filtration Rate 29 mL/min (>60); Est Glom Filt Rate - Afr Amer 35 mL/min (>60); Estimated Creatinine Clearance 27.57 ml/min; Glucose 91 mg/dL (74-106); Potassium 4.1 mmol/L (3.5-5.1); Sodium Level 140 mmol/L (136-145)
[2023-09-15 10:03] VITALS: BP 162/81; PULSE 96; RESP 22; TEMP 37.1; O2SAT 100
[2023-09-15] MEDS: Ceftriaxone 2 GM in 0.9% Normal Saline (50mL MB+) 50 ML IV (10:05)
[2023-09-15] MEDS: APIXABAN 5 MG TABLET PO (10:06)
[2023-09-15] MEDS: Pantoprazole Sodium 40 MG Tablet PO (10:06)
[2023-09-15] MEDS: Loratadine 10 MG Tablet PO (10:06)
[2023-09-15] MEDS: 0.9 % NaCl (Sterile) Posiflush 10 mL IV ×2 (10:07→15:25)
[2023-09-15 11:26] VITALS: BP 162/81; PULSE 96; RESP 22; TEMP 37.1; O2SAT 100
--- NOTE | 2023-09-15 11:28 | PCM.DC.SUM ---
Providers Date of Admission: 09/11/23 Date of Discharge: 09/15/23 Primary Care Physician: Dr. Adrián Mckee MD Consultations 09/11/23 17:31 Consult: Urology Routine Consulting Provider: Janet Curran Reason for Consult: Hydronephrosis/hydroureter EMERGENT Consult: No Notified: Yes Date Notified: 09/11/23 Time Notified: 17:29 Method of Notification: Verbal 09/11/23 17:43 Consult: Wool Broker / Pulmonary Medicine Routine Consulting Provider: Pulmonary Medicine [facility] Reason for Consult: sepsis EMERGENT Consult: No Notified: Yes Date Notified: 09/11/23 Time Notified: 18:30 Method of Notification: Text 09/14/23 09:10 Consult: Nephrology Routine Consulting Provider: Coretta Rayo Reason for Consult: MAJO EMERGENT Consult: No Notified: Yes Date Notified: 09/14/23 Time Notified: 09:10 Method of Notification: Verbal 09/14/23 09:12 Consult: Infectious Disease Routine Consulting Provider: Arthur Valverde Reason for Consult: [place] bactermia from UTI EMERGENT Consult: No Notified: Yes Date Notified: 09/14/23 Time Notified: 09:12 Method of Notification: Text Reason For Visit: SEPSIS 2/2 TO UTI Diagnosis Discharge Diagnosis (1) MAJO (acute kidney injury): Status: Acute Code(s): N17.9 - Acute kidney failure, unspecified (2) Bilateral hydronephrosis: Status: Acute Code(s): N13.30 - Unspecified hydronephrosis Medications at Discharge Home Medications omeprazole 20 mg capsule,delayed release 40 mg PO DAILY ACID REFLUX 01/12/17 loperamide 2 mg capsule 2 mg PO Q6H PRN DIARRHEA 08/01/23 loratadine 10 mg tablet (Claritin) 10 mg PO DAILY ALLERGIES 08/01/23 amlodipine 5 mg tablet 5 mg PO DAILY BLOOD PRESSURE 09/11/23 apixaban 5 mg tablet (Eliquis) 5 mg PO BID BLOOD THINNER 09/11/23 magnesium oxide 400 mg PO DAILY SUPPLEMENT 09/11/23 metoclopramide HCl 10 mg tablet 10 mg PO Q6H PRN NAUSEA 09/11/23 cephalexin 500 mg capsule 500 mg PO Q8H #30 caps 12/23/23 Hospital Course Operations None Procedures None Summary of Care Provided Minutes Spent on Discharge: 55 Hospital Course: Patient is a 73-year-old female with a past medical history as outlined was admitted through the ED on 09/11/2023 with a complaint of abdominal pain. She did have a history of colon cancer and was being treated with chemotherapy by oncology. Her last infusion was a week prior to admission. Patient had subsequently noted that her urine was getting more cloudy and subsequently had fever and chills as well as nausea and vomiting. Temperature at home was 102 Fahrenheit. She also had increased fatigue and weakness. She therefore came into the ED where a urinalysis showed evidence of UTI with 2+ bacteria and elevated leukocytes esterase and elevated WBC. Chest x-ray was unremarkable. She was admitted and managed for UTI and was started on IV Zosyn. Antibiotic was subsequently switched to IV cefepime urine cultures grew Klebsiella and blood cultures were also positive for Klebsiella. Urology was consulted and she had bilateral stents placed on 09/11/2023. CT of the abdomen and pelvis was positive for bilateral hydronephrosis, which necessitated insertion of the stents by urology. ID was also consulted. Patient had a Dennis catheter inserted. Plan was for her to go home with Dennis catheter in situ. Patient remained stable and was discharged on 09/15/2023. Per ID recommendation she was discharged home on p.o. Keflex for 10-day course. She is follow-up with her primary care doctor and urology within 1 to 2 weeks. Patient was seen and examined prior to discharge. She felt well and was ready to be discharged home. She had an uneventful night and review of systems otherwise negative. Labs and vitals reviewed. Home medication reviewed and reconciled. Of note, patient was noted to be leaking urine and this was thought to be due to the small size of her Dennis catheter. Dennis catheter size was therefore increased to 18 and she was discharged home, to follow-up with urology on outpatient basis for change of catheter. Physical Exam Const alert, oriented x3 and no apparent distress General Appearance: cooperative and comfortable Orientation / Consciousness: awake Exam Limitations: no limitations HEENT normocephalic, head/scalp atraumatic, hearing grossly normal bilaterally and moist oral mucous membranes Mouth: oral and palatal mucosa normal Eyes PERRL, EOMs intact bilaterally and conjunctivae normal Neck no lymphadenopathy and supple Resp normal respiratory effort, no retractions, no use of accessory muscles and clear to auscultation bilaterally Cardio regular rate, regular rhythm, S1 normal heart sound, S2 normal heart sound and no murmurs GI normal to inspection, nondistended, normoactive bowel sounds, soft to palpation, non-tender, non-distended and hepatosplenomegaly GI Narrative: ileostomy in place Extremity normal to inspection, full ROM and no clubbing, cyanosis or edema Skin no rashes or lesions noted and no wounds Neuro oriented x3, CN's II-XII intact bilaterally, moves all extremities and no focal motor deficits Sensorium / Orientation: awake and alert Motor Exam: strength 5/5 throughout Psych affect normal Weight / BMI Weight Weight: 175 lb 7.807 oz Body Mass Index (BMI) 27.4 ABG / Lab / Microbiology Data 09/13/23 02:55 09/15/23 06:16 Laboratory: Laboratory Results - last 24 hr 09/15/23 06:16: Sodium 140, Potassium 4.1, Chloride 112 H, Carbon Dioxide 25.0, Anion Gap 3 L, BUN 24 H, Creatinine 1.82 H, Estim Creat Clear Calc 27.57, Est GFR (MDRD) Af Amer 35 L, Est GFR (MDRD) Non-Af 29 L, BUN/Creatinine Ratio 13.2, Glucose 91, Calcium 8.5 Microbiology: Microbiology 09/11/23 15:45 Blood Culture (Wb) - Anticubital Right Blood Culture - 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 09/11/23 15:10 Blood Culture (Wb) - Port Blood Culture - Final Klebsiella pneumoniae sp pneum 09/11/23 15:10 Urine, Clean Catch Urine Culture - Final Klebsiella pneumoniae sp pneum D/C Instructions Discharge Diet: Low fat / Low cholesterol Weight Bearing Status: Weight bearing as tolerated Call your doctor if you observe: Fever of 101 or Higher, Shortness of breath, Dizziness, Swelling in the ankles, Chest pain and Increased palpitations (irregular heartbeat) Meaningful Use Info Meaningful Use Diagnoses (Choose all that apply): None applicable Discharge Plan Admission Admit Date/Time: 09/11/23 16:31 Primary Reason for Your Visit: UTI, Klebsiella bacteremia Attending Provider: Isamar Degroot Primary Care Provider: Adrián Mckee Consulting Providers: Anna Daniels; Rivera Griggs; Arthur Valverde; Coretta Rayo; Janet Curran; Papi Campos Instructions Patient Instructions: ED Bacteremia, Suspected (Adult), ED Cystitis Female Adult Discharge Orders/Prescriptions Prescriptions: New cephalexin 500 mg capsule 500 mg PO Q8H Qty: 30 0RF Continued omeprazole 20 MG capsule 40 mg PO DAILY loperamide 2 mg capsule 2 mg PO Q6H PRN (Reason: DIARRHEA ) loratadine [Claritin] 10 mg tablet 10 mg PO DAILY Eliquis 5 mg tablet 5 mg PO BID metoclopramide HCl 10 mg tablet 10 mg PO Q6H PRN (Reason: NAUSEA ) magnesium oxide 400 mg magnesium tablet 400 mg PO DAILY amlodipine 5 mg tablet 5 mg PO DAILY Rx Instructions: Hold for SBP less than 130 mmHg Referrals / Follow Up: Adrián Mckee MD [Primary Care Provider] - Within 1 Week Janet Curran MD [Med Staff - Active Staff] - Within 1 Week Disposition Disposition (needs filled in before D/C Order can be placed): Home, Self Care Charges/Coding Visit Charges Inpatient E&M: 65938 Disch Hosp >30min
== END 2023-09-15 16:00 | disposition home or self-care (01) | DRG 854 ==
LOC: ED 16:18 → ICU 17:02 → PCU 09-15 07:12
PROVIDERS: Internal Medicine Critical Care Medicine; Nurse Practitioner; Nurse Practitioner Adult Health; Urology; Admitting Provider Internal Medicine; Emergency Provider Emergency Medicine; PCP Family Medicine; Visit Provider Student in an Organized Health Care Education/Training Program
PROC: 0T788DZ Dilation of Bilateral Ureters with Intraluminal Device, Via Natural or Artificial Opening Endoscopic (ICD-10-PCS; principal; 2023-09-11 20:00)
DX: A41.59 Other Gram-negative sepsis (principal); N17.9 Acute kidney failure, unspecified; E87.20 Acidosis, unspecified; E87.1 Hypo-osmolality and hyponatremia; C18.9 Malignant neoplasm of colon, unspecified; N13.6 Pyonephrosis; C78.6 Secondary malignant neoplasm of retroperitoneum and peritoneum; J98.11 Atelectasis; E86.0 Dehydration; Z93.2 Ileostomy status; I10 Essential (primary) hypertension; K21.9 Gastro-esophageal reflux disease without esophagitis; K57.30 Diverticulosis of large intestine without perforation or abscess without bleeding; Z80.8 Family history of malignant neoplasm of other organs or systems; Z80.3 Family history of malignant neoplasm of breast; Z92.21 Personal history of antineoplastic chemotherapy; Z87.891 Personal history of nicotine dependence; Z79.01 Long term (current) use of anticoagulants; R73.9 Hyperglycemia, unspecified; R33.9 Retention of urine, unspecified
CPT/HCPCS: 36415; 36591; 71045; 74176; 76000; 80048; 80053; 80069; 81001; 83605; 83735; 84100; 85025; 85610; 85730; 87040; 87077; 87086; 87088; 87186; 87641; 93005; 94668; 94762; 97110; 97116; 97162; 97166; 97530; 97535; 97802; 97803; 99285; J7030; J7040; J7120; A4216; C2617

== ENCOUNTER 2023-09-27 12:18 | Inpatient (IN) | payer MEDICARE, OTHER, SELFPAY ==
[2023-09-27] VITALS (8 sets, daily range): BP systolic 121–165; BP diastolic 63–76; PULSE 71–112; RESP 16–18; TEMP 36.7–38.7; O2SAT 96–100; BMI 25.9; BMI 25.4
--- NOTE | 2023-09-27 14:23 | EX.ED.DYSGE1 ---
HPI History of Present Illness Chief Complaint: Fever Informant: patient Narrative Narrative: Presents with a fever this morning. Patient's fever is 102. She has had a recent admission for UTI with sepsis from approximately the through the . She just finished her antibiotics on Sunday which sounds like it was cephalexin. I did review her culture which was sensitive to cephalexin. She states a couple days ago she had abdominal cramping but that is completely gone. Her ostomy output is unchanged. No blood. She has had a tickle in the back of her throat and some drainage that makes her cough over the last couple days but she is not really short of breath. She states the cough comes from the drainage not from down in her lungs. She has a Dennis catheter in because her urine has not been draining correctly due to multiple surgeries and colon cancer. Her last chemotherapy was over 3 weeks ago. She is concerned if the UTI and urosepsis is back. She states she has not felt well since admission. But the last day her toe she has felt just a little worse. Patient does have her stents in place as well as the Dennis still. [facility] Medical History Acid reflux Acidosis, lactic Acute dehydration Adenocarcinoma of cecum MAJO (acute kidney injury) Anemia Anticoagulant long-term use Bacteremia due to Klebsiella pneumoniae Bilateral hydronephrosis Complicated UTI (urinary tract infection) Encounter for adjustment or management of vascular access device Fever in adult History of colon cancer Peritoneal metastases s/p port placement Sepsis Sinus tachycardia by electrocardiography Urinary retention UTI (urinary tract infection) Home Medications omeprazole 20 mg capsule,delayed release 40 mg PO DAILY ACID REFLUX 01/12/17 [History Last Taken 09/11/23] loperamide 2 mg capsule 2 mg PO Q6H PRN DIARRHEA 08/01/23 [History Last Taken 09/10/23] loratadine 10 mg tablet (Claritin) 10 mg PO DAILY ALLERGIES 08/01/23 [History Last Taken 09/11/23] amlodipine 5 mg tablet 5 mg PO DAILY BLOOD PRESSURE 09/11/23 [History Last Taken 09/11/23] apixaban 5 mg tablet (Eliquis) 5 mg PO BID BLOOD THINNER 09/11/23 [History Last Taken 09/11/23] Allergy/AdvReac Type Severity Reaction Status Date / Time No Known Allergies Allergy Verified 09/27/23 12:18 Family History Mother Hypertension Father Melanoma Brother Melanoma Aunt Breast cancer Surgical History History of bowel resection History of Hx of ileostomy S/P laparoscopic colectomy s/p port placement (~12/06/18) Social History Smoking Status: Former smoker alcohol intake: current alcohol intake frequency: holidays/special occasions only substance use type: does not use caffeine: Yes what type of physical activity do you participate in: walking and weight training frequency: daily seatbelt use: always do you feel safe at home: Yes additional social history: - Arthur-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 Some specific details below. Constitutional: Fever this morning. No rigors. EYE: No visual complaints or pain. ENT: Mild nasal congestion and postnasal drip for the last couple days. CV: No chest pain or palpitations. Respiratory: No dyspnea. No hemoptysis. No difficulty taking breaths. She states she has an occasional nonproductive cough due to the drainage. GI: Abdominal cramping few days ago but now completely normal. She is eating and drinking normally. : Urine is occasionally a little darker. But no significant change in the amount or significant change in color or appearance. Musculoskeletal: No recent trauma. No pains. No myalgias. Skin: No rash. Nondiaphoretic. Neuro: No weakness or numbness. Endocrine: No polyuria or polydipsia. EXAM Physical Exam Narrative Exam Narrative: CONSTITUTIONAL: Patient is nontoxic in appearance. The patient looks comfortable. HEENT: No notable trauma. Mucous membranes moist. No sinus tenderness. No indication of pain with swallowing. Throat is not notably erythematous. No exudates. EYES: No conjunctival injection. No icterus. CARDIOVASCULAR: Regular rate at about 90 when I listen. Regular rhythm. No notable murmur. No JVD. RESPIRATORY: No respiratory distress. Breathing is unlabored. No wheezes. No rhonchi. No rales. No pain with a deep breath. Saturations are normal at 100% on room air showing no hypoxia. GASTROINTESTINAL: Not distended. Bowel sounds are normal. No tenderness. No guarding. No rebound. No palpable mass. No bruit. Ostomy looks healthy. She has typical light figueroa stool in the bag. Midline incision is healing well. GENITOURINARY: No tenderness over the bladder. No CVA tenderness. The urine does have some dark urine. No clots. It does not look notably cloudy in the bag. MUSCULOSKELETAL: Atraumatic. No peripheral edema. No cord. No tenderness along the deep venous system. No asymmetry. NEUROLOGICAL: Patient is alert and appropriate. No focal deficit noted. SKIN: No noted rashes. No diaphoresis. PSYCHIATRIC: Patient is calm. Mood is appropriate. Const Vital Signs: 09/27/23 12:18 09/27/23 12:20 09/27/23 15:15 Temperature 99.0 F 99 F Temperature Source Oral Temporal Pulse Rate 112 H 112 H Respiratory Rate 16 16 Respiratory Effort Normal Respiratory Pattern Normal Blood Pressure 129/69 H 129/69 H Blood Pressure Mean 89 89 Pulse Ox 100 100 Oxygen Delivery Method Room Air Room Air 09/27/23 15:26 Temperature Temperature Source Pulse Rate 71 Respiratory Rate 16 Respiratory Effort Respiratory Pattern Blood Pressure 132/76 H Blood Pressure Mean 94 Pulse Ox 96 Oxygen Delivery Method Room Air MDM MDM MDM Narrative Medical decision making narrative: My independent interpretation of her single view chest x-ray shows her Medpor and some atelectasis. Final reading also noted nodule opacities bilaterally. This can be evaluated with CT but does not need to be acutely done. Patient CBC shows high white count which is a new rise. It is 18.5. Mild anemia at 9.2. Platelets are normal. Patient's electrolytes show a new acute kidney injury with over doubling of her creatinine since discharge. She is now 4.13. Right upper quadrant Patient's liver function test show no marked abnormalities. Patient's urine is cloudy she has nitrites, leukocyte esterase, greater than 100 white cells and 1+ bacteria. Patient's last urine culture was Klebsiella sensitive to about everything except ampicillin. She is given Rocephin here. She is given IV fluids for her acute kidney injury. I did discuss case with hospitalist. I think with her stent still in place, white count, acute kidney injury and UTI she does need to come back in the hospital. Lab Data Attestation: I reviewed the patient's lab results. Labs: Laboratory Results - last 24 hr 09/27/23 09/27/23 14:50 15:08 WBC 18.5 H RBC 3.31 L Hgb 9.2 L Hct 30.4 L MCV 91.8 MCH 27.8 MCHC 30.3 L RDW Std Deviation 55.5 H RDW Coeff of Ismael 16.7 H Plt Count 360 MPV 9.2 Immature Gran % (Auto) 0.900 Neut % (Auto) 78.7 H Lymph % (Auto) 6.5 L [place] % (Auto) 12.0 H Eos % (Auto) 1.4 Baso % (Auto) 0.5 Absolute Neuts (auto) 14.6 H Absolute Lymphs (auto) 1.21 Nucleated RBC % 0 Differential Comment SCANNED Diff Path Review May foll Sodium 136 Potassium 4.6 Chloride 106 Carbon Dioxide 22.0 Anion Gap 8 BUN 37 H Creatinine 4.13 H Estim Creat Clear Calc 12.15 Est GFR (MDRD) Af Amer 14 L Est GFR (MDRD) Non-Af 11 L BUN/Creatinine Ratio 9.0 L Glucose 87 Lactic Acid 0.7 Calcium 8.9 Total Bilirubin 0.70 AST 18 ALT 10 L Alkaline Phosphatase 186 H Total Protein 6.9 Albumin 2.7 L Globulin 4.2 Albumin/Globulin Ratio 0.6 L Urine Color Yellow Urine Clarity Cloudy Urine pH 5.0 Ur Specific [place] 1.015 Urine Protein 500 H Urine Glucose (UA) Normal Urine Ketones 5 H Urine Occult Blood 250 H Urine Nitrite Positive H Urine Bilirubin Negative Urine Urobilinogen Normal Ur Leukocyte Esterase 500 H Urine RBC 50-100 SEEN Urine WBC >100 SEEN Ur Squamous Epith Cells 0 SEEN Urine Bacteria 1+ Urine Mucus 0 SEEN Urine Yeast 3+ Radiography Diagnostic Testing: Clinical Impression(s) from Imaging Studies Chest X-Ray 09/27/23 15:10 IMPRESSION: Indeterminate nodular opacities within the left mid and right lung base, cannot exclude a neoplastic process, consider chest CT for further evaluation. Stable bibasilar atelectasis and/or scarring. Electronically Signed: Zaria Dominique MD at 15:26 EST , Discharge Plan Dx/Rx/DC Orders Clinical Impression: Acute kidney injury, Ureteral stent present, History of colon cancer, Leukocytosis, Acute UTI Disposition Disposition: Acute Care Hospital [facility]
--- NOTE | 2023-09-27 15:10 | RAD_ITS ---
INDICATION: cough EXAMINATION/TECHNIQUE: X-RAY - XR Chest 1 View COMPARISON: September 11, 2023 FINDINGS: LINES/DEVICES: There is a left-sided central venous catheter in place with its tip within the expected region of the superior vena cava. LUNGS: There is a stable hazy opacity within the right upper lung. There is a 1.4 cm nodule within the left midlung. There is a curvilinear and somewhat nodular opacity at the right lung base. There are stable curvilinear opacities within the left lower lung. No pneumothorax. MEDIASTINUM AND CARDIOVASCULAR STRUCTURES: Cardiac silhouette not enlarged. Central airways and mediastinal contour are unremarkable. BONES AND SOFT TISSUES: Unremarkable. RAD/Chest 1 View (Portable) IMPRESSION: Indeterminate nodular opacities within the left mid and right lung base, cannot exclude a neoplastic process, consider chest CT for further evaluation. Stable bibasilar atelectasis and/or scarring. Electronically Signed: Zaria Dominique MD at 15:26 EST ,
[2023-09-27 15:11] LABS: Absolute Lymphocyte Count 1.21 X10^3/uL (0.83-4.51); Absolute Neutrophil Count 14.6 X10^3/uL (2.0-7.7); Basophil# 0.09 X10^3/uL; Basophil% 0.5 % (0-1); Eosinophil# 0.26 X10^3/uL; Eosinophils% 1.4 % (0-5); Hematocrit 30.4 % (37-47); Hemoglobin 9.2 g/dL (12.0-15.0); Lymphocyte # 1.21 X10^3/ul (0.83-4.51); Lymphocyte % 6.5 % (19-41); Mean Corp Hgb Conc 30.3 g/dL (32-36); Mean Corpuscular Hgb 27.8 pg (27.0-32.0); Mean Corpuscular Volume 91.8 fL (81-99); Mean Platelet Vol. 9.2 fl (6.2-12.0); Monocyte# 2.23 X10^3/uL; NRBC Flagged by Analyzer 0 % (0-5); Neutrophil # 14.58 X10^3/uL (2.7-7.7); Neutrophil % 78.7 % (47-70); POSITIVE DIFFERENTIAL YES; Platelet Count 360 K/mm3 (150-450); RBC Distribution Width CV 16.7 % (11.6-14.6); RBC Distribution Width SD 55.5 fl (35.1-43.9); Red Blood Count 3.31 M/mm3 (4.2-5.4); White Blood Count 18.5 K/mm3 (4.4-11.0)
[2023-09-27 15:18] LABS: Mucous, Urine 0 SEEN /hpf (<or=2+); Squamous Epithelial Cells - UA 0 SEEN /hpf (5-10)
[2023-09-27 15:20] LABS: ALB/GLOB Ratio 0.6 RATIO (0.9-2.4); AST(SGOT) 18 U/L (15-37); Alanine Aminotransfer ALT/SGPT 10 U/L (13-56); Albumin, Serum 2.7 g/dL (3.2-5.0); Alkaline Phosphatase 186 U/L (45-117); Anion Gap 8 (5-15); BUN 37 mg/dL (7-18); Calcium,Total 8.9 mg/dL (8.5-10.1); Chloride 106 mmol/L (98-107); Creatinine, Serum 4.13 mg/dL (0.55-1.02); EST Glomerular Filtration Rate 11 mL/min (>60); Est Glom Filt Rate - Afr Amer 14 mL/min (>60); Estimated Creatinine Clearance 12.15 ml/min; Globulin 4.2 g/dL (2.2-4.2); Glucose 87 mg/dL (74-106); Potassium 4.6 mmol/L (3.5-5.1); Protein, Total 6.9 g/dL (6.4-8.2); Sodium Level 136 mmol/L (136-145)
[2023-09-27] MEDS: 0.9% Normal Saline (500mL Bag) 500 ML 1000 ML IV (15:24)
[2023-09-27 15:31] LABS: Differential Indicated SCAN CRITERIA MET
[2023-09-27 15:33] LABS: Lactic Acid 0.7 mmol/L (0.4-1.9)
[2023-09-27 15:46] LABS: Color, Urine Yellow (Yellow); Glucose, Dipstick Normal (Normal); Ketone-Dipstick 5 mg/dl (Negative); Leukocyte Esterase-Dipstick 500 /ul (Negative); Nitrite-Dipstick Positive (Negative); Occult Blood-Urine 250 /ul (Negative); Protein-Dipstick 500 mg/dl (Negative); Specific Gravity, Urine 1.015 (1.002-1.030); Urine Bilirubin Dipstick Negative (Negative); Urine Clarity Cloudy (Clear); Urine Urobilinogen Normal (Normal)
[2023-09-27 15:54] LABS: Bacteria 1+ /hpf (None Seen); Red Blood Cells-Urine 50-100 SEEN /hpf (0-5); White Blood Cells >100 SEEN /hpf (0-5); Yeast-Urine 3+ /hpf (None Seen)
[2023-09-27 16:08] LABS: Differential Comment SCANNED
[2023-09-27] MEDS: Ceftriaxone 1 GM/50 ML BAG IV (16:11)
[2023-09-27] MEDS: 0.9% Normal Saline (1000mL) 1,000 ML 999 ML IV (16:11)
--- NOTE | 2023-09-27 17:43 | PCM.HP.STD ---
HPI - General General Date of Admission: 09/27/23 Date of Service: 09/27/23 Chief Complaint: Febrile HPI Narrative SANTI NAM, is a 73-year-old female history of colon cancer with chronic ostomy, hx VTE, UTIs, GERD presented to [facility] with a fever of 102 this a.m. Had recent admission for UTI with sepsis from approximately 18 through the and just finished her antibiotics Sunday. Over the past couple days she has had a little bit of a tickle in her throat and some drainage that makes her cough a little bit but no shortness of breath. Has Dennis catheter in place because urine has not been draining correctly after multiple surgeries. Is on chemotherapy with last over 3 weeks ago. Patient was concerned that she may have another UTI so she presented to the ED. UA was indeed concerning for UTI and patient had elevated white blood cell count with left shift and new MAJO, hospitalist contacted for admission. Patient evaluated bedside. She reports that last night she had a temperature of 100.8 and took a Tylenol however this morning had a temp of 102 prompting her to come to the ED. Reports she has not been having a good appetite today and has had some crampy abdominal pain since Sunday but no change in ostomy, has been having some nasal drainage and subsequent cough but does not feel short of breath, no nausea or vomiting. No other complaints at this time. [facility] Medical History Acid reflux Acidosis, lactic Acute dehydration Adenocarcinoma of cecum MAJO (acute kidney injury) Anemia Anticoagulant long-term use Bacteremia due to Klebsiella pneumoniae Bilateral hydronephrosis Complicated UTI (urinary tract infection) Encounter for adjustment or management of vascular access device Fever in adult History of colon cancer Peritoneal metastases s/p port placement Sepsis Sinus tachycardia by electrocardiography Urinary retention UTI (urinary tract infection) Home Medications omeprazole 20 mg capsule,delayed release 40 mg PO DAILY ACID REFLUX 01/12/17 [History Last Taken 09/27/23] loperamide 2 mg capsule 2 mg PO Q6H PRN DIARRHEA 08/01/23 [History Last Taken 09/27/23] loratadine 10 mg tablet (Claritin) 10 mg PO DAILY ALLERGIES 08/01/23 [History Last Taken 09/27/23] amlodipine 5 mg tablet 5 mg PO DAILY BLOOD PRESSURE 09/11/23 [History Last Taken 09/27/23] apixaban 5 mg tablet (Eliquis) 5 mg PO BID BLOOD THINNER 09/11/23 [History Last Taken 09/27/23] Allergy/AdvReac Type Severity Reaction Status Date / Time No Known Allergies Allergy Verified 09/27/23 12:18 Family History Mother Hypertension Father Melanoma Brother Melanoma Aunt Breast cancer Surgical History History of bowel resection History of Hx of ileostomy S/P laparoscopic colectomy s/p port placement (~12/06/18) Social History Smoking Status: Former smoker alcohol intake: current alcohol intake frequency: holidays/special occasions only substance use type: does not use caffeine: Yes what type of physical activity do you participate in: walking and weight training frequency: daily seatbelt use: always do you feel safe at home: Yes additional social history: - 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 HENT: Has had some nasal drainage EYES: Denies changes in vision Resp: Slight cough with nasal drainage, denies shortness of breath Cardiac: Denies chest pain GI: Some crampy abdominal pain since Sunday without change from ostomy : Denies any overt changes Extremity: Did feel her legs were little bit swollen a couple days ago but that this is resolved MSK: Somewhat generally weak today Neuro: Denies any numbness/tingling Heme: Denies any bleeding or bruising Skin: Denies rashes Psychiatric: No complaints voiced Vital Signs Vital Signs Vital Signs: 09/27/23 12:18 09/27/23 12:20 09/27/23 15:15 Temperature 99.0 F 99 F Temperature Source Oral Temporal Pulse Rate 112 H 112 H Respiratory Rate 16 16 Respiratory Effort Normal Respiratory Pattern Normal Blood Pressure 129/69 H 129/69 H Blood Pressure Mean 89 89 Pulse Ox 100 100 Oxygen Delivery Method Room Air Room Air 09/27/23 15:26 09/27/23 16:00 09/27/23 17:00 Temperature 98.1 F Temperature Source Oral Pulse Rate 71 74 74 Respiratory Rate 16 16 16 Respiratory Effort Respiratory Pattern Blood Pressure 132/76 H 136/69 H 143/74 H Blood Pressure Mean 94 91 97 Pulse Ox 96 96 99 Oxygen Delivery Method Room Air Room Air Weight Weight: 75.296 kg Body Mass Index (BMI) 25.9 Physical Exam Narrative General: Alert, oriented HEENT: Atraumatic, normocephalic Eyes: Anicteric, normal conjunctiva, extraocular movements grossly intact Neck: Supple Respiratory: Clear to auscultation bilaterally, normal respiratory effort Cardiovascular: Regular rate and rhythm GI: Soft, nontender, nondistended Extremities: No edema Musculoskeletal: Moving all extremities Neuro: No overt focal neurological deficits Skin: No rashes appreciated Psych: Cooperative Results Lab / Micro Data 09/27/23 14:50 09/27/23 14:50 Labs: Laboratory Results - last 24 hr 09/27/23 14:50: WBC 18.5 H, RBC 3.31 L, Hgb 9.2 L, Hct 30.4 L, MCV 91.8, MCH 27.8, MCHC 30.3 L, RDW Std Deviation 55.5 H, RDW Coeff of Ismael 16.7 H, Plt Count 360, MPV 9.2, Immature Gran % (Auto) 0.900, Neut % (Auto) 78.7 H, Lymph % (Auto) 6.5 L, [place] % (Auto) 12.0 H, Eos % (Auto) 1.4, Baso % (Auto) 0.5, Absolute Neuts (auto) 14.6 H, Absolute Lymphs (auto) 1.21, Nucleated RBC % 0, Differential Comment SCANNED, Diff Path Review January, Sodium 136, Potassium 4.6, Chloride 106, Carbon Dioxide 22.0, Anion Gap 8, BUN 37 H, Creatinine 4.13 H, Estim Creat Clear Calc 12.15, Est GFR (MDRD) Af Amer 14 L, Est GFR (MDRD) Non-Af 11 L, BUN/Creatinine Ratio 9.0 L, Glucose 87, Lactic Acid 0.7, Calcium 8.9, Total Bilirubin 0.70, AST 18, ALT 10 L, Alkaline Phosphatase 186 H, Total Protein 6.9, Albumin 2.7 L, Globulin 4.2, Albumin/Globulin Ratio 0.6 L 09/27/23 15:08: Urine Color Yellow, Urine Clarity Cloudy, Urine pH 5.0, Ur Specific [place] 1.015, Urine Protein 500 H, Urine Glucose (UA) Normal, Urine Ketones 5 H, Urine Occult Blood 250 H, Urine Nitrite Positive H, Urine Bilirubin Negative, Urine Urobilinogen Normal, Ur Leukocyte Esterase 500 H, Urine RBC 50-100 SEEN, Urine WBC >100 SEEN, Ur Squamous Epith Cells 0 SEEN, Urine Bacteria 1+, Urine Mucus 0 SEEN, Urine Yeast 3+ Micro: Microbiology 09/27/23 13:55 Mucosa - Nose SARS-CoV-2, Influenza & RSV (PCR) - Final Imagaing Radiology Impression Chest X-Ray 09/27/23 15:10 IMPRESSION: Indeterminate nodular opacities within the left mid and right lung base, cannot exclude a neoplastic process, consider chest CT for further evaluation. Stable bibasilar atelectasis and/or scarring. Electronically Signed: Zaria Dominique MD at 15:26 EST , Assessment & Plan Assessment/Plan (1) Acute UTI: (2) Acute kidney injury: (3) History of colon cancer: (4) Leukocytosis: (5) Ureteral stent present: PLAN: Plan #Complicated UTI associated with indwelling Dennis catheter and patient also has ureteral stents placed in August -UA concerning for UTI, white blood cell count 18.5 with left shift, patient febrile in the a.m., creatinine is 4.13 up from baseline -Will place patient on fluids, antibiotics -Urine and blood cultures ordered -Most recently grew Klebsiella however has grown enteric coccus in the past, will start on Vanco and Zosyn and narrow pending cultures -Has seen Dr. Curran on previous admission and she had insertion of bilateral stents during last admission 09/11/2023 -Given kidney function would want to avoid any contrasted scans if possible, will start with kidney ultrasound to assess for any hydro/abscess/overt abnormalities, can consider further workup and/or imaging from there pending results -Change Dennis catheter # History of colon cancer with ostomy -Last chemotherapy 3 weeks ago, further chemo has been delayed due to patient being ill -On chest x-ray there were indeterminate nodular opacities within the left mid and right lung base and cannot exclude neoplastic process -Unclear duration or if this is known -May need follow-up imaging, does have known metastasis -Will need to follow with oncology upon discharge # History of VTE Continue Eliquis #GERD -Continue PPI #DVT ppx: Continue Eliquis Snow Millard MD Time spent in the patient's overall evaluation,decision-making process, review of diagnostic data, adjustment of management, discussion with other providers, nursing nursing and ancillary staff involved in patient's care documentation, 55 minutes Charges/Coding Visit Charges Inpatient E&M: 50778 Init Hosp L2
--- NOTE | 2023-09-27 20:04 | US_ITS ---
STUDY: RENAL ULTRASOUND - COMPLETE REASON FOR EXAM: Female, 73 years old. Recurrent UTIs and MAJO, ?kidney abscess or hydro TECHNIQUE: Ultrasound evaluation of the kidneys was performed with real-time and static dugan-scale imaging. COMPARISON: 08/02/2023 FINDINGS: RIGHT KIDNEY: Normal location of the right kidney, which is normal in size. The right kidney measures 11.2 cm. There is a normal cortex of the right kidney. The renal cortex measures 1.6 cm. There is no right renal mass or cyst. There are no right renal calculi. There is no right hydronephrosis. DISTAL RIGHT URETER: There is non-visualization of the distal right ureter. There is no demonstrated right ureterovesical junction calculus. There is a visualized right ureteral jet. LEFT KIDNEY: Normal location of the left kidney, which is normal in size. The left kidney measures 13.1 cm. There is a normal cortex of the left kidney. The renal cortex measures 2.1 cm. There is no left renal mass or cyst. There are no left renal calculi. There is mild hydronephrosis of the left kidney. DISTAL LEFT URETER: There is non-visualization of the distal left ureter. There is no demonstrated left ureterovesical junction calculus. There is a visualized left ureteral jet. BLADDER: Nondistended with Dennis catheter.. US/Kidney and Bladder IMPRESSION: Mild left hydronephrosis. Electronically Signed: Von Sanders MD at 22:09 EST ,
[2023-09-27] MEDS: Acetaminophen 325 MG Tablet 650 MG PO (20:48)
[2023-09-27] MEDS: 0.9% Saline Lock 10 ML Syringe IV (20:48)
[2023-09-27] MEDS: 0.9% Normal Saline (1000mL) 1,000 ML 75 ML IV (20:49)
[2023-09-27] MEDS: Vancomycin HCl 1,750 MG in 0.9% Normal Saline (500mL Bag) 500 ML 250 MG IV (21:13)
[2023-09-27] MEDS: APIXABAN 5 MG TABLET PO (23:11)
[2023-09-27] MEDS: Piperacil/Tazobactam 3.375 GM in 0.9% Normal Saline (50mL MB+) 50 ML IV (23:37)
[2023-09-28] VITALS (7 sets, daily range): BP systolic 109–147; BP diastolic 60–74; PULSE 77–109; RESP 16–18; TEMP 36.4–38.8; O2SAT 95–98
--- NOTE | 2023-09-28 00:32 | PHA.PHARE_ITS ---
Consult Antibiotic Management Pharmacy has been consulted to manage selected antibiotic: Vancomycin Type of Intervention Type of Consult: New start Suspected Infection Suspected Infection: Other Labs Labs: Sodium 136 mmol/L (136-145) 09/27/23 14:50 Potassium 4.6 mmol/L (3.5-5.1) 09/27/23 14:50 Chloride 106 mmol/L (98-107) 09/27/23 14:50 Carbon Dioxide 22.0 mmol/L (21.0-32.0) 09/27/23 14:50 Anion Gap 8 (5-15) 09/27/23 14:50 BUN 37 mg/dL (7-18) H 09/27/23 14:50 Creatinine 4.13 mg/dL (0.55-1.02) H 09/27/23 14:50 Est GFR (MDRD) Af Amer 14 mL/min (>60) L 09/27/23 14:50 Est GFR (MDRD) Non-Af 11 mL/min (>60) L 09/27/23 14:50 BUN/Creatinine Ratio 9.0 RATIO (10-20) L 09/27/23 14:50 Glucose 87 mg/dL (74-106) 09/27/23 14:50 Microbiology Microbiology: Microbiology 09/27/23 13:55 Mucosa - Nose SARS-CoV-2, Influenza & RSV (PCR) - Final Dosing Weight Weight used for dosin kg Estimated Creatinine Clearance Estimated Creatinine Clearance: 12 Goal Trough Goal Trough: 15-20 mcg/mL Pharmacy Plan for Drug Dosing Pharmacy Plan for Drug Dosing: Vancomycin IV was initiated with a 1750mg dose 09/27/23 @2113. Since current CrCl< 20 we will hold off on a continuing dose for now. A random vanco level will be drawn with the 09/29/23 a.m. labs, and further dosing will be determined from that result. Pharmacy Service will continue to monitor and adjust dosing as required. Follow-Up Labs Follow-Up Labs: Trough: Vancomycin (random) Date/Time Labs Ordered Labs to be done on [date and time ordered]: 09/29/23 @0600
[2023-09-28 06:21] LABS: Absolute Lymphocyte Count 0.65 X10^3/uL (0.83-4.51); Absolute Neutrophil Count 14.7 X10^3/uL (2.0-7.7); Basophil# 0.06 X10^3/uL; Basophil% 0.3 % (0-1); Eosinophil# 0.09 X10^3/uL; Eosinophils% 0.5 % (0-5); Hematocrit 29.2 % (37-47); Hemoglobin 8.9 g/dL (12.0-15.0); Lymphocyte # 0.65 X10^3/ul (0.83-4.51); Lymphocyte % 3.7 % (19-41); Mean Corp Hgb Conc 30.5 g/dL (32-36); Mean Corpuscular Volume 91.8 fL (81-99); Mean Platelet Vol. 9.7 fl (6.2-12.0); Monocyte# 1.67 X10^3/uL; Monocyte% 9.6 % (0-10); NRBC Flagged by Analyzer 0 % (0-5); Neutrophil # 14.73 X10^3/uL (2.7-7.7); Neutrophil % 84.7 % (47-70); POSITIVE DIFFERENTIAL YES; Platelet Count 342 K/mm3 (150-450); RBC Distribution Width CV 16.5 % (11.6-14.6); RBC Distribution Width SD 56.3 fl (35.1-43.9); Red Blood Count 3.18 M/mm3 (4.2-5.4); White Blood Count 17.4 K/mm3 (4.4-11.0)
[2023-09-28 06:43] LABS: Differential Indicated SCAN CRITERIA MET
[2023-09-28 07:16] LABS: ALB/GLOB Ratio 0.5 RATIO (0.9-2.4); AST(SGOT) 14 U/L (15-37); Alanine Aminotransfer ALT/SGPT 7 U/L (13-56); Albumin, Serum 2.3 g/dL (3.2-5.0); Alkaline Phosphatase 166 U/L (45-117); Anion Gap 7 (5-15); BUN 32 mg/dL (7-18); BUN/Creat Ratio 8.5 RATIO (10-20); Calcium,Total 8.2 mg/dL (8.5-10.1); Chloride 112 mmol/L (98-107); Creatinine, Serum 3.76 mg/dL (0.55-1.02); EST Glomerular Filtration Rate 13 mL/min (>60); Est Glom Filt Rate - Afr Amer 15 mL/min (>60); Estimated Creatinine Clearance 13.35 ml/min; Globulin 4.2 g/dL (2.2-4.2); Glucose 98 mg/dL (74-106); Potassium 4.5 mmol/L (3.5-5.1); Protein, Total 6.5 g/dL (6.4-8.2); Sodium Level 139 mmol/L (136-145)
[2023-09-28 07:21] LABS: Differential Comment SCANNED
[2023-09-28] MEDS: APIXABAN 5 MG TABLET PO ×2 (07:50→20:38)
[2023-09-28] MEDS: Acetaminophen 325 MG Tablet 650 MG PO ×2 (07:50→15:40)
[2023-09-28] MEDS: amLODIPine 5 MG Tablet PO (07:51)
[2023-09-28] MEDS: Pantoprazole Sodium 40 MG Tablet PO (07:51)
--- NOTE | 2023-09-28 07:58 | PN.HOSP_ITS ---
Subjective Subjective Feeling better. Had hematuria prior to catheter change, worse afterwards, but currently improving. Objective Data Objective Data Vital Signs: Vital Signs Temp Pulse Resp BP Pulse Ox O2 Del Method 37.9 C H 94 18 134/60 H 95 Room Air 09/28/23 05:39 09/28/23 05:39 09/28/23 05:39 09/28/23 05:39 09/28/23 05:39 09/28/23 05:39 Oxygen Delivery Method Room Air Weight: 73.7 kg Body Mass Index (BMI) 25.4 Intake & Output: Intake and Output for Last 24 Hours 09/26/23 09/27/23 09/28/23 23:59 23:59 23:59 Intake Total 2085 / 2085 50 / 50 Output Total 1900 / 1900 1150 / 1150 Balance 185 / 185 -1100 / -1100 Lab / Micro Data 09/28/23 05:32 09/28/23 05:32 Labs: Laboratory Results - last 24 hr 09/27/23 14:50: WBC 18.5 H, RBC 3.31 L, Hgb 9.2 L, Hct 30.4 L, MCV 91.8, MCH 27.8, MCHC 30.3 L, RDW Std Deviation 55.5 H, RDW Coeff of Ismael 16.7 H, Plt Count 360, MPV 9.2, Immature Gran % (Auto) 0.900, Neut % (Auto) 78.7 H, Lymph % (Auto) 6.5 L, [place] % (Auto) 12.0 H, Eos % (Auto) 1.4, Baso % (Auto) 0.5, Absolute Neuts (auto) 14.6 H, Absolute Lymphs (auto) 1.21, Nucleated RBC % 0, Differential Com ment SCANNED, Diff Path Review January, Sodium 136, Potassium 4.6, Chloride 106, Carbon Dioxide 22.0, Anion Gap 8, BUN 37 H, Creatinine 4.13 H, Estim Creat Clear Calc 12.15, Est GFR (MDRD) Af Amer 14 L, Est GFR (MDRD) Non-Af 11 L, BUN/Creatinine Ratio 9.0 L, Glucose 87, Lactic Acid 0.7, Calcium 8.9, Total Bilirubin 0.70, AST 18, ALT 10 L, Alkaline Phosphatase 186 H, Total Protein 6.9, Albumin 2.7 L, Globulin 4.2, Albumin/Globulin Ratio 0.6 L 09/27/23 15:08: Urine Color Yellow, Urine Clarity Cloudy, Urine pH 5.0, Ur Specific [place] 1.015, Urine Protein 500 H, Urine Glucose (UA) Normal, Urine Ketones 5 H, Urine Occult Blood 250 H, Urine Nitrite Positive H, Urine Bilirubin Negative, Urine Urobilinogen Normal, Ur Leukocyte Esterase 500 H, Urine RBC 50- 100 SEEN, Urine WBC >100 SEEN, Ur Squamous Epith Cells 0 SEEN, Urine Bacteria 1+, Urine Mucus 0 SEEN, Urine Yeast 3+ 09/28/23 05:32: WBC 17.4 H, RBC 3.18 L, Hgb 8.9 L, Hct 29.2 L, MCV 91.8, MCH 28.0, MCHC 30.5 L, RDW Std Deviation 56.3 H, RDW Coeff of Ismael 16.5 H, Plt Count 342, MPV 9.7, Immature Gran % (Auto) 1.200 H, Neut % (Auto) 84.7 H, Lymph % (Au to) 3.7 L, [place] % (Auto) 9.6, Eos % (Auto) 0.5, Baso % (Auto) 0.3, Absolute N euts (auto) 14.7 H, Absolute Lymphs (auto) 0.65 L, Nucleated RBC % 0, Differential Comment SCANNED, Diff Path Review January, Sodium 139, Potassium 4.5, Chloride 112 H, Carbon Dioxide 20.0 L, Anion Gap 7, BUN 32 H, Creatinine 3.76 H, Estim Creat Clear Calc 13.35, Est GFR (MDRD) Af Amer 15 L, Est GFR (MDRD) Non-Af 13 L, BUN/Creatinine Ratio 8.5 L, Glucose 98, Calcium 8.2 L, Total Bilirubin 0.90, AST 14 L, ALT 7 L, Alkaline Phosphatase 166 H, Total Protein 6.5, Albumin 2.3 L, Globulin 4.2, Albumin/Globulin Ratio 0.5 L Micro: Microbiology 09/27/23 15:05 Blood Culture (Wb) - Port Blood Culture - Preliminary 09/27/23 13:55 Mucosa - Nose SARS-CoV-2, Influenza & RSV (PCR) - Final Radiography Diagnostic Testing: Radiology Impression Chest X-Ray 09/27/23 15:10 IMPRESSION: Indeterminate nodular opacities within the left mid and right lung base, cannot exclude a neoplastic process, consider chest CT for further evaluation. Stable bibasilar atelectasis and/or scarring. Electronically Signed: Zaria Dominique MD at 15:26 EST , Renal Ultrasound 09/27/23 20:04 IMPRESSION: Mild left hydronephrosis. Electronically Signed: Von Sanders MD at 22:09 EST , Physical Exam Const alert and no apparent distress Resp normal respiratory effort and no retractions Cardio regular rate, regular rhythm, S1 normal heart sound and S2 normal heart sound GI normal to inspection, nondistended, normoactive bowel sounds Assessment & Plan Assessment/Plan (1) Acute UTI: (2) Acute kidney injury: (3) Leukocytosis: PLAN: Plan CAUTI: * Complicated with known ureteral stent. Catheter changed. * abx w pip/tazo dc vancomycin * follow up UCx. Bacteremia * + on the for VRE. Suspect urinary source, though urine culture currently pending. * Start linezolid. Repeat BCx. MAJO: * POA. Admission creatinine 4.13, baseline around 1.8. Improved to 3.76 * US showed mild left hydronephrosis * Continue IVF, Chronic conditions * History of colon cancer with ostomy-Last chemotherapy 3 weeks ago, further chemo has been delayed due to patient being ill-On chest x-ray there were indeterminate nodular opacities within the left mid and right lung base and cannot exclude neoplastic process-Unclear duration or if this is known-May need follow-up imaging, does have known metastasis-Will need to follow with oncology upon discharge * History of VTE: apixaban * GERD-Continue PPI DVT ppx: not indicated as pt on apixaban. Charges/Coding Visit Charges Inpatient E&M: 86413 Subs Hosp L2
--- NOTE | 2023-09-28 08:11 | WOUNDNOTE ---
Was asked to see patient d/t having an ileostomy. patient has been caring for her ostomy independently at home. states she just changed the appliance yesterday before coming into the hospital. appliance is intact. no sign of leaks noted. moderate amount of light brown/yellow watery stool noted. pt denies further needs or concerns at this time.
[2023-09-28] MEDS: Ensure Plus High Protein 120 ML LIQUID PO ×4 (09:10→20:38)
[2023-09-28] MEDS: 0.9% Normal Saline (1000mL) 1,000 ML 75 ML IV (09:12)
[2023-09-28] MEDS: Nystatin Powder 15gm Bottle 1 APPLIC TOPICAL ×2 (10:08→20:38)
[2023-09-28] MEDS: Piperacil/Tazobactam 3.375 GM in 0.9% Normal Saline (50mL MB+) 50 ML IV (11:49)
[2023-09-28] MEDS: Loperamide 2 MG Capsule PO ×2 (14:01→21:26)
--- NOTE | 2023-09-28 14:11 | CON.PCM.ID_ITS ---
Assessment & Plan Assessment/Plan (1) Bacteremia: PLAN: Will continue linezolid 600 mg IV every 12 hours. Okay to discontinue Zosyn. Will repeat blood cultures especially with her port in place to look for continuous bacteremia. HPI Consult Data Date of Consult: 09/28/23 HPI Narrative Reason for Consultation: Bacteremia HPI Narrative: SANTI NAM, is a 73 F who presents acute onset of fever and nausea and generalized malaise. Patient was recently hospitalized roughly 2 weeks ago and at that time had Klebsiella bacteremia treated with parenteral antibiotic therapy and then sent home on oral antimicrobial regimen that was completed this past Sunday. Patient has multiple comorbidities including colon cancer status post multiple bowel surgeries and has an ileostomy. Neurogenic bladder with a Dennis catheter placed since her last admission a few weeks ago. Patient has a port in left chest for chemotherapy. Interestingly blood cultures growing E faecium with concern of VRE. No cardiopulmonary distress. Overall hemodynamically stable. Patient does have acute renal injury on this admission. [facility] Medical History (Updated 09/28/23 @ 14:[address] Pablo Newsome MD) Acid reflux Acidosis, lactic Acute dehydration Adenocarcinoma of cecum MAJO (acute kidney injury) Anemia Anticoagulant long-term use Bacteremia due to Klebsiella pneumoniae Bilateral hydronephrosis Chronic indwelling Dennis catheter Complicated UTI (urinary tract infection) Encounter for adjustment or management of vascular access device Fever in adult Former smoker History of colon cancer Kidney disease Peritoneal metastases Pulmonary embolism s/p port placement Sepsis Sinus tachycardia by electrocardiography Urinary retention UTI (urinary tract infection) Home Medications omeprazole 20 mg capsule,delayed release 40 mg PO DAILY ACID REFLUX 01/12/17 [History Last Taken 09/27/23] loperamide 2 mg capsule 2 mg PO Q6H PRN DIARRHEA 08/01/23 [History Last Taken 09/27/23] loratadine 10 mg tablet (Claritin) 10 mg PO DAILY ALLERGIES 08/01/23 [History Last Taken 09/27/23] amlodipine 5 mg tablet 5 mg PO DAILY BLOOD PRESSURE 09/11/23 [History Last Taken 09/27/23] apixaban 5 mg tablet (Eliquis) 5 mg PO BID BLOOD THINNER 09/11/23 [History Last Taken 09/27/23] Allergy/AdvReac Type Severity Reaction Status Date / Time No Known Allergies Allergy Verified 09/27/23 12:18 Family History Mother Hypertension Father Melanoma Brother Melanoma Aunt Breast cancer Surgical History (Updated 09/27/23 @ 19:50 by Rossana Porras) History of appendectomy History of bowel resection History of Hx of ileostomy S/P laparoscopic colectomy s/p port placement (~12/06/18) Social History Smoking Status: Former smoker alcohol intake: current alcohol intake frequency: holidays/special occasions only substance use type: does not use caffeine: Yes what type of physical activity do you participate in: walking and weight training frequency: daily seatbelt use: always do you feel safe at home: Yes additional social history: - [employer]-Retired Patient is [employer]AT[employer] 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 Indwelling Dennis catheter in place. Left chest port in place. Lab / Micro Data 09/28/23 05:32 09/28/23 05:32 Labs: Laboratory Results - last 24 hr 09/27/23 14:50: WBC 18.5 H, RBC 3.31 L, Hgb 9.2 L, Hct 30.4 L, MCV 91.8, MCH 27.8, MCHC 30.3 L, RDW Std Deviation 55.5 H, RDW Coeff of Ismael 16.7 H, Plt Count 360, MPV 9.2, Immature Gran % (Auto) 0.900, Neut % (Auto) 78.7 H, Lymph % (Auto) 6.5 L, [place] % (Auto) 12.0 H, Eos % (Auto) 1.4, Baso % (Auto) 0.5, Absolute Neuts (auto) 14.6 H, Absolute Lymphs (auto) 1.21, Nucleated RBC % 0, Differential Comment SCANNED, Diff Path Review January, Sodium 136, Potassium 4.6, Chloride 106, Carbon Dioxide 22.0, Anion Gap 8, BUN 37 H, Creatinine 4.13 H, Estim Creat Clear Calc 12.15, Est GFR (MDRD) Af Amer 14 L, Est GFR (MDRD) Non-Af 11 L, BUN/Creatinine Ratio 9.0 L, Glucose 87, Lactic Acid 0.7, Calcium 8.9, Total B ilirubin 0.70, AST 18, ALT 10 L, Alkaline Phosphatase 186 H, Total Protein 6.9, Albumin 2.7 L, Globulin 4.2, Albumin/Globulin Ratio 0.6 L 09/27/23 15:08: Urine Color Yellow, Urine Clarity Cloudy, Urine pH 5.0, Ur Specific [place] 1.015, Urine Protein 500 H, Urine Glucose (UA) Normal, Urine Ketones 5 H, Urine Occult Blood 250 H, Urine Nitrite Positive H, Urine Bilirubin Negative, Urine Urobilinogen Normal, Ur Leukocyte Esterase 500 H, Urine RBC 50- 100 SEEN, Urine WBC >100 SEEN, Ur Squamous Epith Cells 0 SEEN, Urine Bacteria 1+, Urine Mucus 0 SEEN, Urine Yeast 3+ 09/28/23 05:32: WBC 17.4 H, RBC 3.18 L, Hgb 8.9 L, Hct 29.2 L, MCV 91.8, MCH 28.0, MCHC 30.5 L, RDW Std Deviation 56.3 H, RDW Coeff of Ismael 16.5 H, Plt Count 342, MPV 9.7, Immature Gran % (Auto) 1.200 H, Neut % (Auto) 84.7 H, Lymph % (Auto) 3.7 L, [place] % (Auto) 9.6, Eos % (Auto) 0.5, Baso % (Auto) 0.3, Absolute Neuts (auto) 14.7 H, Absolute Lymphs (auto) 0.65 L, Nucleated RBC % 0, Differential Comment SCANNED, Diff Path Review January, Sodium 139, Potassium 4.5, Chloride 112 H, Carbon Dioxide 20.0 L, Anion Gap 7, BUN 32 H, Creatinine 3.76 H, Estim Creat Clear Calc 13.35, Est GFR (MDRD) Af Amer 15 L, Est GFR (MDRD) Non-Af 13 L, BUN/Creatinine Ratio 8.5 L, Glucose 98, Calcium 8.2 L, Total Bilirubin 0.90, AST 14 L, ALT 7 L, Alkaline Phosphatase 166 H, Total Protein 6.5, Albumin 2.3 L, Globulin 4.2, Albumin/Globulin Ratio 0.5 L Micro: Microbiology 09/27/23 15:08 Urine, Catheterized Urine Culture - Preliminary Gram positive organism Gram positive organism#2 09/27/23 15:04 Blood Culture (Wb) #2 - Port Bacteria Detection (PCR) - Final Enterococcus faecium Mariajose/vanB Resistance Marker 09/27/23 15:05 Blood Culture (Wb) - Port Blood Culture - Preliminary 09/27/23 13:55 Mucosa - Nose SARS-CoV-2, Influenza & RSV (PCR) - Final Imagaing Radiology Impression Chest X-Ray 09/27/23 15:10 IMPRESSION: Indeterminate nodular opacities within the left mid and right lung base, cannot exclude a neoplastic process, consider chest CT for further evaluation. Stable bibasilar atelectasis and/or scarring. Electronically Signed: Zaria Dominique MD at 15:26 EST , Renal Ultrasound 09/27/23 20:04 IMPRESSION: Mild left hydronephrosis. Electronically Signed: Von Sanders MD at 22:09 EST ,
--- NOTE | 2023-09-28 15:25 | CASEMGMT ---
Index: 09/11/23-09/15/23. Dx: MAJO, UTI, Sepsis Readmission: 09/27/23. Dx: UTI, MAJO Pt with colon cancer, anemia, chronic indwelling Dennis catheter, chronic ostomy, VTE, UTIs, GERD was admitted on the above noted dates. On previous admission, pt was seen for UTI with sepsis. Patient was noted to be leaking urine possibly due to the small size of her Dennis catheter. Dennis catheter size was increased to 18 and she was discharged home. Pt was to follow-up with urology on outpatient basis for change of catheter. Pt was also prescribed cephalexin 500mg PO Q8H. Pt then returned to [facility] with a fever of 102. Pt finished her antibiotics Sunday09/25/23. Pt developed a minor cough, denies SOB. Pt Dennis catheter was still intact. Pt is on chemotherapy with the last treatment being 3 weeks ago. The pt was concerned that she may have another UTI so she presented to the ED. Face to face at this time with pt. Pt states she was compliant with her entire ATB course. Pt states her Dennis was not changed during this time. Pt also states that she kept her Dennis as clean as possible. Pt states that she feels like there was nothing more that I could have done at home to prevent this. Pt states that she has blood cultures pending. Pt states she has been taking Tylenol for her fevers. Pt states a new Dennis was inserted this morning. Pt states her plan after DC this stay may be to learn how to self straight cath to help prevent infection. Pt states that she feels safe, comfortable, and confident going home alone after DC. Pt denies the need for HHC at this time. No further needs noted at this time. Avtar Contreras RN CM
[2023-09-28] MEDS: 0.9% Saline Lock 10 ML Syringe IV (20:38)
[2023-09-28] MEDS: Linezolid 600 MG 600 MG/300 ML BAG 200 MG IV (21:26)
[2023-09-29 00:33] VITALS: BP 130/70; PULSE 100; RESP 18; TEMP 37.6; O2SAT 98
[2023-09-29 05:10] VITALS: BP 141/70; PULSE 98; RESP 20; TEMP 37.7; O2SAT 95
[2023-09-29 06:22] LABS: Absolute Lymphocyte Count 0.83 X10^3/uL (0.83-4.51); Absolute Neutrophil Count 12.6 X10^3/uL (2.0-7.7); Basophil# 0.06 X10^3/uL; Basophil% 0.4 % (0-1); Eosinophil# 0.23 X10^3/uL; Eosinophils% 1.5 % (0-5); Hematocrit 28.7 % (37-47); Hemoglobin 8.8 g/dL (12.0-15.0); Lymphocyte # 0.83 X10^3/ul (0.83-4.51); Lymphocyte % 5.4 % (19-41); Mean Corp Hgb Conc 30.7 g/dL (32-36); Mean Corpuscular Hgb 28.3 pg (27.0-32.0); Mean Corpuscular Volume 92.3 fL (81-99); Monocyte# 1.35 X10^3/uL; Monocyte% 8.8 % (0-10); NRBC Flagged by Analyzer 0 % (0-5); Neutrophil # 12.64 X10^3/uL (2.7-7.7); Neutrophil % 82.8 % (47-70); Platelet Count 363 K/mm3 (150-450); RBC Distribution Width CV 16.3 % (11.6-14.6); RBC Distribution Width SD 55.5 fl (35.1-43.9); Red Blood Count 3.11 M/mm3 (4.2-5.4); White Blood Count 15.3 K/mm3 (4.4-11.0)
[2023-09-29 06:50] LABS: Anion Gap 8 (5-15); BUN 37 mg/dL (7-18); BUN/Creat Ratio 10.4 RATIO (10-20); Calcium,Total 8.2 mg/dL (8.5-10.1); Chloride 112 mmol/L (98-107); Creatinine, Serum 3.55 mg/dL (0.55-1.02); EST Glomerular Filtration Rate 13 mL/min (>60); Est Glom Filt Rate - Afr Amer 16 mL/min (>60); Estimated Creatinine Clearance 14.13 ml/min; Glucose 145 mg/dL (74-106); Potassium 4.4 mmol/L (3.5-5.1); Sodium Level 138 mmol/L (136-145)
--- NOTE | 2023-09-29 08:23 | PN.HOSP_ITS ---
Subjective Subjective No new events. Feels well. Objective Data Objective Data Vital Signs: Vital Signs Temp Pulse Resp BP Pulse Ox O2 Del Method 37.7 C H 98 20 H 141/70 H 95 Room Air 09/29/23 05:10 09/29/23 05:10 09/29/23 05:10 09/29/23 05:10 09/29/23 05:10 09/29/23 05:10 Oxygen Delivery Method Room Air Weight: 73.7 kg Body Mass Index (BMI) 25.4 Intake & Output: Intake and Output for Last 24 Hours 09/27/23 09/28/23 09/29/23 23:59 23:59 23:59 Intake Total 2085 / 2085 2463.54 / 2463.54 300 / 300 Output Total 1900 / 1900 3450 / 4200 2049 Balance 185 / 185 -986.46 / -1736.46 -1750 / -1750 Lab / Micro Data 09/29/23 05:40 09/29/23 05:40 Labs: Laboratory Results - last 24 hr 09/29/23 05:40: WBC 15.3 H, RBC 3.11 L, Hgb 8.8 L, Hct 28.7 L, MCV 92.3, MCH 28.3, MCHC 30.7 L, RDW Std Deviation 55.5 H, RDW Coeff of Ismael 16.3 H, Plt Count 363, MPV 10.0, Immature Gran % (Auto) 1.100 H, Neut % (Auto) 82.8 H, Lymph % (Auto) 5.4 L, [place] % (Auto) 8.8, Eos % (Auto) 1.5, Baso % (Auto) 0.4, Absolute Neuts (auto) 12.6 H, Absolute Lymphs (auto) 0.83, Nucleated RBC % 0, Sodium 138, Potassium 4.4, Chloride 112 H, Carbon Dioxide 18.0 L, Anion Gap 8, BUN 37 H, Creatinine 3.55 H, Estim Creat Clear Calc 14.13, Est GFR (MDRD) Af Amer 16 L, Est GFR (MDRD) Non-Af 13 L, BUN/Creatinine Ratio 10.4, Glucose 145 H, Calcium 8.2 L Micro: Microbiology 09/27/23 15:08 Urine, Catheterized Urine Culture - Preliminary Gram positive organism Gram positive organism#2 09/27/23 15:04 Blood Culture (Wb) #2 - Port Bacteria Detection (PCR) - Final Enterococcus faecium Mariajose/vanB Resistance Marker 09/27/23 15:05 Blood Culture (Wb) - Port Blood Culture - Preliminary 09/27/23 13:55 Mucosa - Nose SARS-CoV-2, Influenza & RSV (PCR) - Final Physical Exam Const alert and no apparent distress Resp normal respiratory effort Extremity normal to inspection Neuro Sensorium / Orientation: awake and alert Assessment & Plan Assessment/Plan (1) Acute UTI: (2) Acute kidney injury: (3) Leukocytosis: PLAN: Plan CAUTI: * Complicated with known ureteral stent. Catheter changed. * linezolid * follow up UCx, thus far showing GPO. Bacteremia * + on the for VRE. Suspect urinary source, though urine culture currently pending. * Start linezolid. * Repeat BCx, if repeats are positive, may need to consider TTE/MARGARITA MAJO: * POA. Admission creatinine 4.13, baseline around 1.8. Improved to 3.55 * US showed mild left hydronephrosis * Continue IVF, Chronic conditions * History of colon cancer with ostomy-Last chemotherapy 3 weeks ago, further chemo has been delayed due to patient being ill-On chest x-ray there were indeterminate nodular opacities within the left mid and right lung base and cannot exclude neoplastic process-Unclear duration or if this is known-May need follow-up imaging, does have known metastasis-Will need to follow with oncology upon discharge * History of VTE: apixaban * GERD-Continue PPI DVT ppx: not indicated as pt on apixaban. Charges/Coding Visit Charges Inpatient E&M: 80525 Subs Hosp L2
[2023-09-29 10:17] VITALS: BP 153/68; PULSE 104; RESP 16; TEMP 37.1; O2SAT 96
[2023-09-29] MEDS: Linezolid 600 MG 600 MG/300 ML BAG 200 MG IV ×2 (10:25→21:16)
[2023-09-29] MEDS: Ensure Plus High Protein 120 ML LIQUID PO ×3 (10:25→17:02)
[2023-09-29] MEDS: Nystatin Powder 15gm Bottle 1 APPLIC TOPICAL ×2 (10:26→21:15)
[2023-09-29] MEDS: 0.9% Normal Saline (1000mL) 1,000 ML 125 ML IV ×2 (10:27→20:24)
[2023-09-29] MEDS: amLODIPine 5 MG Tablet PO (10:27)
[2023-09-29] MEDS: APIXABAN 5 MG TABLET PO ×2 (10:27→21:15)
[2023-09-29] MEDS: Pantoprazole Sodium 40 MG Tablet PO (10:27)
--- NOTE | 2023-09-29 14:55 | ECHOD_ITS ---
Reason For Study: Bacteremia Procedure This was a 2D Doppler, Color Flow transthoracic echocardiogram. Exam performed portable in patient room. Left Ventricle Normal LV size. Left ventricular systolic function is normal. The estimated ejection fraction is 65 %. No regional wall motion abnormalities noted. Right Ventricle Normal right ventricle. Normal systolic function. Atria Normal left atrium. Normal right atrium. Mitral Valve Normal mitral valve. Mild (1+) mitral valve insufficiency. Tricuspid Valve Normal tricuspid valve. Aortic Valve Trisinus/trileaflet aortic valve. Normal aortic valve. Pulmonic Valve Normal pulmonic valve. Great Vessels Normal aortic root. The pulmonary artery is normal size. Normal inferior vena cava. Pericardium/Pleural No pericardial effusion. MMode/2D Measurements & Calculations LVIDd: 4.4 cm IVSd: 0.94 cm Ao root diam: 3.3 cm LVIDs: 2.4 cm LVPWd: 1.0 cm LA dimension: 3.7 cm RVDd: 3.4 cm FS: 45.0 % LAV(MOD-bp): 60.0 ml LVAd ap4: 26.9 cm2 SV(MOD-sp4): 46.6 ml LAV(MOD-bp) Indexed: 32.5 ml/m2 LVLd ap4: 8.3 cm LAV(MOD-sp2): 71.3 ml EDV(MOD-sp4): 71.0 ml LAV(MOD-sp4): 48.9 ml EDV(sp4-el): 73.4 ml LVAs ap4: 13.6 cm2 LVLs ap4: 6.8 cm ESV(MOD-sp4): 24.5 ml ESV(sp4-el): 23.0 ml EF(MOD-sp4): 65.6 % EF(sp4-el): 68.6 % SV(sp4-el): 50.3 ml LA A4 area: 17.5 cm2 RA A4 area: 14.2 cm2 Time Measurements MV dec time: 0.20 sec Doppler Measurements & Calculations MV E max wale: 84.3 cm/sec Lat Peak E' Wale: 12.7 cm/sec Med Peak E' Wale: 8.4 cm/sec MV A max wale: 74.7 cm/sec E/E' lat: 6.7 E/E' med: 10.0 MV E/A: 1.1 MV V2 max: 84.7 cm/sec MV P1/2t max wale: 85.7 cm/sec Ao V2 max: 140.1 cm/sec MV max P.9 mmHg MV P1/2t: 63.3 msec Ao max P.9 mmHg MV V2 mean: 48.4 cm/sec Ao V2 mean: 100.7 cm/sec MV mean P.1 mmHg MV dec slope: 396.7 cm/sec2 Ao mean P.6 mmHg MV V2 VTI: 23.5 cm MVA(P1/2t): 3.5 cm2 Ao V2 VTI: 31.5 cm AV (velocity ratio): 0.76 LV V1 max: 110.7 cm/sec MR max wale: 550.9 cm/sec PA V2 max: 98.7 cm/sec LV V1 max P.9 mmHg MR max P.4 mmHg PA V2 mean: 67.2 cm/sec LV V1 mean P.0 mmHg LV V1 mean: 81.4 cm/sec LV V1 VTI: 24.1 cm ECHO/Echo Complete Interpretation Summary Normal LV size. Left ventricular systolic function is normal. The estimated ejection fraction is 65 %. Structurally normal valves. Ordering Physician: Adrián Hunt Referring Physician: Adrián Mckee Performed By: Josue Yuan RCS
[2023-09-29 15:28] VITALS: BP 140/68; PULSE 99; RESP 16; TEMP 38.1; O2SAT 97
[2023-09-29] MEDS: Acetaminophen 325 MG Tablet 650 MG PO (15:35)
[2023-09-29 21:08] VITALS: BP 153/76; PULSE 88; RESP 16; TEMP 37.1; O2SAT 98
[2023-09-30 03:18] VITALS: BP 145/82; PULSE 94; RESP 18; TEMP 37.3; O2SAT 96
[2023-09-30] MEDS: 0.9% Normal Saline (1000mL) 1,000 ML 125 ML IV ×3 (05:58→21:59)
[2023-09-30 07:38] LABS: Absolute Lymphocyte Count 1.06 X10^3/uL (0.83-4.51); Absolute Neutrophil Count 8.5 X10^3/uL (2.0-7.7); Basophil# 0.06 X10^3/uL; Basophil% 0.5 % (0-1); Eosinophil# 0.19 X10^3/uL; Eosinophils% 1.7 % (0-5); Hematocrit 27.3 % (37-47); Hemoglobin 8.3 g/dL (12.0-15.0); Lymphocyte # 1.06 X10^3/ul (0.83-4.51); Lymphocyte % 9.4 % (19-41); Mean Corp Hgb Conc 30.4 g/dL (32-36); Mean Corpuscular Hgb 27.9 pg (27.0-32.0); Mean Corpuscular Volume 91.6 fL (81-99); Mean Platelet Vol. 9.8 fl (6.2-12.0); Monocyte% 11.6 % (0-10); NRBC Flagged by Analyzer 0 % (0-5); Neutrophil % 75.7 % (47-70); Platelet Count 364 K/mm3 (150-450); RBC Distribution Width CV 16.1 % (11.6-14.6); RBC Distribution Width SD 53.6 fl (35.1-43.9); Red Blood Count 2.98 M/mm3 (4.2-5.4); White Blood Count 11.2 K/mm3 (4.4-11.0)
[2023-09-30 07:39] LABS: Anion Gap 5 (5-15); BUN 34 mg/dL (7-18); BUN/Creat Ratio 10.1 RATIO (10-20); Calcium,Total 8.6 mg/dL (8.5-10.1); Chloride 112 mmol/L (98-107); Creatinine, Serum 3.35 mg/dL (0.55-1.02); EST Glomerular Filtration Rate 14 mL/min (>60); Est Glom Filt Rate - Afr Amer 17 mL/min (>60); Estimated Creatinine Clearance 14.98 ml/min; Glucose 90 mg/dL (74-106); Potassium 4.4 mmol/L (3.5-5.1); Sodium Level 137 mmol/L (136-145)
--- NOTE | 2023-09-30 09:27 | PN.HOSP_ITS ---
Subjective Subjective Feels well. No new events. Objective Data Objective Data Vital Signs: Vital Signs Temp Pulse Resp BP Pulse Ox O2 Del Method 37.3 C H 94 18 145/82 H 96 Room Air 09/30/23 03:18 09/30/23 03:18 09/30/23 03:18 09/30/23 03:18 09/30/23 03:18 09/30/23 03:20 Oxygen Delivery Method Room Air Weight: 73.7 kg Body Mass Index (BMI) 25.4 Intake & Output: Intake and Output for Last 24 Hours 09/28/23 09/29/23 09/30/23 23:59 23:59 23:59 Intake Total 2463.54 / 2463.54 2308.33 / 2308.33 1191.67 / 1191.67 Output Total 3450 / 4200 3250 / 3250 1500 / 1500 Balance -986.46 / -1736.46 -941.67 / -941.67 -308.33 / -308.33 Lab / Micro Data 09/30/23 06:23 09/30/23 06:23 Labs: Laboratory Results - last 24 hr 09/30/23 06:23: WBC 11.2 H, RBC 2.98 L, Hgb 8.3 L, Hct 27.3 L, MCV 91.6, MCH 27.9, MCHC 30.4 L, RDW Std Deviation 53.6 H, RDW Coeff of Ismael 16.1 H, Plt Count 364, MPV 9.8, Immature Gran % (Auto) 1.100 H, Neut % (Auto) 75.7 H, Lymph % (Auto) 9.4 L, [place] % (Auto) 11.6 H, Eos % (Auto) 1.7, Baso % (Auto) 0.5, Absolute Neuts (auto) 8.5 H, Absolute Lymphs (auto) 1.06, Nucleated RBC % 0, Sodium 137, Potassium 4.4, Chloride 112 H, Carbon Dioxide 20.0 L, Anion Gap 5, BUN 34 H, Creatinine 3.35 H, Estim Creat Clear Calc 14.98, Est GFR (MDRD) Af Amer 17 L, Est GFR (MDRD) Non-Af 14 L, BUN/Creatinine Ratio 10.1, Glucose 90, Calcium 8.6 Micro: Microbiology 09/27/23 15:08 Urine, Catheterized Urine Culture - Preliminary Enterococcus faecium Yeast Like Organism 09/27/23 15:05 Blood Culture (Wb) - Port Blood Culture - Final Enterococcus faecium 09/28/23 19:40 Blood Culture (Wb) - Port Blood Culture - Preliminary 09/27/23 14:50 Blood Culture (Wb) - Port Blood Culture - Preliminary No growth in 48 hours. 09/27/23 15:04 Blood Culture (Wb) #2 - Port Bacteria Detection (PCR) - Final Enterococcus faecium Mariajose/vanB Resistance Marker 09/27/23 13:55 Mucosa - Nose SARS-CoV-2, Influenza & RSV (PCR) - Final Physical Exam Const alert and no apparent distress Constitutional Narrative: up in chair. nontoxic. no respiratory distress. Resp normal respiratory effort Extremity normal to inspection and no clubbing, cyanosis or edema Neuro moves all extremities Sensorium / Orientation: awake and alert Psych affect normal Assessment & Plan Assessment/Plan (1) Acute UTI: (2) Acute kidney injury: (3) Leukocytosis: PLAN: Plan CAUTI: * Complicated with known ureteral stent. Catheter changed. * linezolid * follow up UCx, thus far showing GPO. Bacteremia * Blood cultures + on the 4th for VRE. 5th 1 or 2 positive form GPO. 6th pending. * Suspect urinary source, though urine culture currently pending. * Start linezolid. * Repeat BCx, if repeats are positive, may need to consider TTE/MARGARITA MAJO: * POA. Admission creatinine 4.13, baseline around 1.8. Improved to 3.55 * US showed mild left hydronephrosis * Continue IVF * Consult to see if any additional procedures necessary while in the hospital. Chronic conditions * History of colon cancer with ostomy-Last chemotherapy 3 weeks ago, further chemo has been delayed due to patient being ill-On chest x-ray there were indeterminate nodular opacities within the left mid and right lung base and cannot exclude neoplastic process-Unclear duration or if this is known-May need follow-up imaging, does have known metastasis-Will need to follow with oncology upon discharge * History of VTE: apixaban * GERD-Continue PPI DVT ppx: not indicated as pt on apixaban. Charges/Coding Visit Charges Inpatient E&M: 32501 Subs Hosp L2
[2023-09-30 09:36] VITALS: BP 140/73; PULSE 95; RESP 18; TEMP 36.9; O2SAT 96
[2023-09-30] MEDS: amLODIPine 5 MG Tablet PO (09:40)
[2023-09-30] MEDS: Pantoprazole Sodium 40 MG Tablet PO (09:40)
[2023-09-30] MEDS: APIXABAN 5 MG TABLET PO ×2 (09:40→21:58)
[2023-09-30] MEDS: Nystatin Powder 15gm Bottle 1 APPLIC TOPICAL ×2 (09:40→22:03)
[2023-09-30] MEDS: Ensure Plus High Protein 120 ML LIQUID PO ×2 (09:40→17:34)
[2023-09-30] MEDS: Linezolid 600 MG 600 MG/300 ML BAG 200 MG IV ×2 (09:41→21:58)
[2023-09-30] MEDS: Loperamide 2 MG Capsule PO (09:48)
[2023-09-30 14:50] VITALS: BP 158/74; PULSE 103; RESP 18; TEMP 38.2; O2SAT 96
[2023-09-30] MEDS: Acetaminophen 325 MG Tablet 650 MG PO ×2 (15:00→21:59)
[2023-09-30 18:44] VITALS: TEMP 36.9
[2023-09-30 22:30] VITALS: BP 140/76; PULSE 93; RESP 18; TEMP 37.9; O2SAT 98
[2023-10-01 06:00] VITALS: BP 155/79; PULSE 90; RESP 90; TEMP 36.9; O2SAT 97
[2023-10-01 06:26] LABS: Absolute Neutrophil Count 8.2 X10^3/uL (2.0-7.7); Basophil# 0.06 X10^3/uL; Basophil% 0.6 % (0-1); Eosinophil# 0.26 X10^3/uL; Eosinophils% 2.4 % (0-5); Hematocrit 29.1 % (37-47); Lymphocyte % 7.5 % (19-41); Mean Corp Hgb Conc 30.9 g/dL (32-36); Mean Corpuscular Hgb 27.9 pg (27.0-32.0); Mean Corpuscular Volume 90.1 fL (81-99); Mean Platelet Vol. 9.2 fl (6.2-12.0); Monocyte# 1.22 X10^3/uL; Monocyte% 11.5 % (0-10); NRBC Flagged by Analyzer 0 % (0-5); Neutrophil # 8.16 X10^3/uL (2.7-7.7); Neutrophil % 76.6 % (47-70); Platelet Count 378 K/mm3 (150-450); RBC Distribution Width CV 15.9 % (11.6-14.6); Red Blood Count 3.23 M/mm3 (4.2-5.4); White Blood Count 10.7 K/mm3 (4.4-11.0)
[2023-10-01] MEDS: Loperamide 2 MG Capsule PO ×2 (06:42→21:21)
[2023-10-01] MEDS: 0.9% Normal Saline (1000mL) 1,000 ML 125 ML IV ×3 (06:43→23:08)
[2023-10-01 06:54] LABS: Anion Gap 6 (5-15); BUN 29 mg/dL (7-18); BUN/Creat Ratio 9.4 RATIO (10-20); Calcium,Total 8.9 mg/dL (8.5-10.1); Chloride 114 mmol/L (98-107); Creatinine, Serum 3.09 mg/dL (0.55-1.02); EST Glomerular Filtration Rate 16 mL/min (>60); Est Glom Filt Rate - Afr Amer 19 mL/min (>60); Estimated Creatinine Clearance 16.24 ml/min; Glucose 87 mg/dL (74-106); Potassium 4.6 mmol/L (3.5-5.1); Sodium Level 139 mmol/L (136-145)
--- NOTE | 2023-10-01 07:40 | WOUNDNOTE ---
Ileostomy appliance changed per request. removed old appliance. very small amount of liquid stool noted in appliance. stoma is well budded and pink. peristomal skin is intact. cleansed with warm water. pat dry. applied a small amount of stoma powder. applied a new 2 piece flat appliance with a paste ring. pt tolerated well.
--- NOTE | 2023-10-01 07:54 | PCM.CONS.GEN ---
Assessment & Plan Assessment/Plan (1) Bacteremia: PLAN: Repeat blood cultures are negative at 48 hours (2) Acute UTI: (3) Ureteral stent present: (4) Acute kidney injury: PLAN: Plan We discussed ongoing plans for her bladder dysfunction. I would like to be able to remove the Dennis catheter but we cannot do that until she is able to catheterize herself on her own. There is a good chance we may be able to remove the ureteral stents once she is able to cath herself. I do not have definitive proof that the urinary obstruction is above the bladder outlet. From my standpoint, the plan will be to have her discharged with Dennis catheter to straight drain and have her follow-up appointment in the office with me be for straight cath teaching. If she does well with this, the plan will be to remove the stents and follow her hydronephrosis. If it does not return, we can then proceed without the ureteral stents. Continue antibiotic coverage per infectious disease Continue medical management No plans for stent change or surgical intervention during this appointment HPI Consult Data Date of Consult: 10/01/23 HPI Narrative Reason for Consultation: bacteremia, urinary tract infection, stents HPI Narrative: SANTI NAM, is a 73 F who was admitted with bacteremia, urinary tract infections with fever. She reports that since admission her urinary catheter has been changed without incident. When she has a fever she does not feel well, otherwise feeling okay. She is ambulatory and feels she will likely be going home rather than to rehab. [facility] Medical History (Updated 09/28/23 @ 14:[address] Pablo Newsome MD) Acid reflux Acidosis, lactic Acute dehydration Adenocarcinoma of cecum MAJO (acute kidney injury) Anemia Anticoagulant long-term use Bacteremia due to Klebsiella pneumoniae Bilateral hydronephrosis Chronic indwelling Dennis catheter Complicated UTI (urinary tract infection) Encounter for adjustment or management of vascular access device Fever in adult Former smoker History of colon cancer Kidney disease Peritoneal metastases Pulmonary embolism s/p port placement Sepsis Sinus tachycardia by electrocardiography Urinary retention UTI (urinary tract infection) Home Medications omeprazole 20 mg capsule,delayed release 40 mg PO DAILY ACID REFLUX 01/12/17 [History Last Taken 09/27/23] loperamide 2 mg capsule 2 mg PO Q6H PRN DIARRHEA 08/01/23 [History Last Taken 09/27/23] loratadine 10 mg tablet (Claritin) 10 mg PO DAILY ALLERGIES 08/01/23 [History Last Taken 09/27/23] amlodipine 5 mg tablet 5 mg PO DAILY BLOOD PRESSURE 09/11/23 [History Last Taken 09/27/23] apixaban 5 mg tablet (Eliquis) 5 mg PO BID BLOOD THINNER 09/11/23 [History Last Taken 09/27/23] Allergy/AdvReac Type Severity Reaction Status Date / Time No Known Allergies Allergy Verified 09/27/23 12:18 Family History Mother Hypertension Father Melanoma Brother Melanoma Aunt Breast cancer Surgical History (Updated 09/27/23 @ 19:50 by Rossana Porras) History of appendectomy History of bowel resection History of Hx of ileostomy S/P laparoscopic colectomy s/p port placement (~12/06/18) Social History Smoking Status: Former smoker alcohol intake: current alcohol intake frequency: holidays/special occasions only substance use type: does not use caffeine: Yes what type of physical activity do you participate in: walking and weight training frequency: daily seatbelt use: always do you feel safe at home: Yes additional social history: - Arthur-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 Bladder / Kidney Exam: catheter in place Extremity normal to inspection Skin no rashes or lesions noted, no jaundice, no petechiae and no mottling Neuro oriented x3, CN's II-XII intact bilaterally and moves all extremities Psych mental status grossly normal, thought process normal and cooperative Lab / Micro Data 10/01/23 06:19 10/01/23 06:19 Labs: Laboratory Results - last 24 hr 10/01/23 06:19: WBC 10.7, RBC 3.23 L, Hgb 9.0 L, Hct 29.1 L, MCV 90.1, MCH 27.9, MCHC 30.9 L, RDW Std Deviation 52.0 H, RDW Coeff of Ismael 15.9 H, Plt Count 378, MPV 9.2, Immature Gran % (Auto) 1.400 H, Neut % (Auto) 76.6 H, Lymph % (Auto) 7.5 L, Crittenden % (Auto) 11.5 H, Eos % (Auto) 2.4, Baso % (Auto) 0.6, Absolute Neuts (auto) 8.2 H, Absolute Lymphs (auto) 0.80 L, Nucleated RBC % 0, Sodium 139, Potassium 4.6, Chloride 114 H, Carbon Dioxide 19.0 L, Anion Gap 6, BUN 29 H, Creatinine 3.09 H, Estim Creat Clear Calc 16.24, Est GFR (MDRD) Af Amer 19 L, Est GFR (MDRD) Non-Af 16 L, BUN/Creatinine Ratio 9.4 L, Glucose 87, Calcium 8.9 Micro: Microbiology 09/27/23 15:08 Urine, Catheterized Urine Culture - Final Enterococcus faecium Presumptive C albicans 09/28/23 19:40 Blood Culture (Wb) - Port Blood Culture - Preliminary GPC Poss Enterococcus sp 09/27/23 15:05 Blood Culture (Wb) - Port Blood Culture - Final Enterococcus faecium
[2023-10-01] MEDS: Acetaminophen 325 MG Tablet 650 MG PO ×2 (08:40→17:59)
[2023-10-01] MEDS: Pantoprazole Sodium 40 MG Tablet PO (08:40)
[2023-10-01] MEDS: APIXABAN 5 MG TABLET PO ×2 (08:40→21:22)
[2023-10-01] MEDS: amLODIPine 5 MG Tablet PO (08:40)
[2023-10-01] MEDS: Nystatin Powder 15gm Bottle 1 APPLIC TOPICAL ×2 (08:41→21:22)
[2023-10-01 08:43] VITALS: BP 147/70; PULSE 103; RESP 16; TEMP 37.3; O2SAT 96
[2023-10-01 09:37] LABS: Pathologist Review Reviewed
[2023-10-01] MEDS: Linezolid 600 MG 600 MG/300 ML BAG 200 MG IV (09:41)
[2023-10-01 11:08] VITALS: BP 126/67; PULSE 82; RESP 16; TEMP 36.7; O2SAT 98
[2023-10-01] MEDS: Ensure Plus High Protein 120 ML LIQUID PO ×2 (13:57→17:59)
[2023-10-01 15:30] VITALS: BP 124/67; PULSE 95; RESP 16; TEMP 36.6; O2SAT 100
--- NOTE | 2023-10-01 16:39 | PN.HOSP_ITS ---
Reason for Visit Reason for Visit: Diagnoses Elevated white blood cell count, unspecified (09/27/23) Acute kidney failure, unspecified (09/27/23) Urinary tract infection, site not specified (09/27/23) Bacteremia (09/27/23) Personal history of other malignant neoplasm of large intestine (09/27/23) Presence of urogenital implants (09/27/23) Subjective Subjective Patient seen at bedside this morning. Patient was sitting comfortably in bedside chair, conversing normally, no acute distress. Patient states she was having fevers most of this weekend, has not had any fevers now this morning. She has Dennis catheter in place, tolerating without issue. She otherwise denies any acute pain or discomfort. No other acute concerns this time. Objective Data Objective Data Vital Signs: Vital Signs Temp Pulse Resp BP Pulse Ox O2 Del Method 98 F 95 16 124/67 H 100 Room Air 10/01/23 15:30 10/01/23 15:30 10/01/23 15:30 10/01/23 15:30 10/01/23 15:30 10/01/23 15:30 Oxygen Delivery Method Room Air Weight: 73.7 kg Body Mass Index (BMI) 25.4 Intake & Output: Intake and Output for Last 24 Hours 09/29/23 09/30/23 10/01/23 23:59 23:59 23:59 Intake Total 2308.33 / 2308.33 4064.59 / 4064.59 2616.67 / 2616.67 Output Total 3250 / 3250 3850 / 4775 2325 / 2325 Balance -941.67 / -941.67 214.59 / -710.41 291.67 / 291.67 Lab / Micro Data 10/01/23 06:19 10/01/23 06:19 Labs: Laboratory Results - last 24 hr 09/27/23 14:50: Diff Path Review Reviewed 10/01/23 06:19: WBC 10.7, RBC 3.23 L, Hgb 9.0 L, Hct 29.1 L, MCV 90.1, MCH 27.9, MCHC 30.9 L, RDW Std Deviation 52.0 H, RDW Coeff of Ismael 15.9 H, Plt Count 378, MPV 9.2, Immature Gran % (Auto) 1.400 H, Neut % (Auto) 76.6 H, Lymph % (Auto) 7.5 L, Johnson % (Auto) 11.5 H, Eos % (Auto) 2.4, Baso % (Auto) 0.6, Absolute Neuts (auto) 8.2 H, Absolute Lymphs (auto) 0.80 L, Nucleated RBC % 0, Sodium 139, Potassium 4.6, Chloride 114 H, Carbon Dioxide 19.0 L, Anion Gap 6, BUN 29 H, Creatinine 3.09 H, Estim Creat Clear Calc 16.24, Est GFR (MDRD) Af Amer 19 L, Est GFR (MDRD) Non-Af 16 L, BUN/Creatinine Ratio 9.4 L, Glucose 87, Calcium 8.9 Micro: Microbiology 09/28/23 19:40 Blood Culture (Wb) - Port Blood Culture - Preliminary Enterococcus faecium 09/28/23 14:33 Blood Culture (Wb) - Anticubital Right Blood Culture - Preliminary No growth in 48 hours. 09/29/23 05:47 Blood Culture (Wb) - Anticubital Left Blood Culture - Preliminary No growth in 48 hours. 09/29/23 05:40 Blood Culture (Wb) - Anticubital Right Blood Culture - Preliminary No growth in 48 hours. 09/27/23 15:08 Urine, Catheterized Urine Culture - Final Enterococcus faecium Presumptive C albicans 09/27/23 15:05 Blood Culture (Wb) - Port Blood Culture - Final Enterococcus faecium 09/27/23 14:50 Blood Culture (Wb) - Port Blood Culture - Preliminary No growth in 48 hours. 09/27/23 15:04 Blood Culture (Wb) #2 - Port Bacteria Detection (PCR) - Final Enterococcus faecium Mariajose/vanB Resistance Marker 09/27/23 13:55 Mucosa - Nose SARS-CoV-2, Influenza & RSV (PCR) - Final Radiography Diagnostic Testing: Radiology Impression Echocardiogram 09/29/23 14:55 Interpretation Summary Normal LV size. Left ventricular systolic function is normal. The estimated ejection fraction is 65 %. Structurally normal valves. Ordering Physician: Adrián Hunt Referring Physician: Adrián Mckee Performed By: Josue Yuan RCS Physical Exam Const alert, oriented x3, no apparent distress and average body habitus Constitutional Narrative: Pleasant elderly female, sitting comfortably in bed, conversing normally, no acute distress. General Appearance: cooperative and comfortable HEENT normocephalic, head/scalp atraumatic, hearing grossly normal bilaterally, nasal mucous membranes and turbinates normal and moist oral mucous membranes Eyes PERRL, EOMs intact bilaterally and conjunctivae normal Neck full ROM, no lymphadenopathy and supple Lymph Lymphatic: no lymphadenopathy noted Chest inspection of chest normal Resp normal respiratory effort, normal air movement, no use of accessory muscles and clear to auscultation bilaterally Cardio regular rate, regular rhythm, no murmurs and peripheral pulses 2+ throughout GI normal to inspection, nondistended, normoactive bowel sounds, soft to palpation, non-tender and non-distended GI Narrative: Ostomy in place without issues. Back/Spine normal ROM Extremity normal to inspection, full ROM and no pedal edema Skin no rashes or lesions noted Neuro no focal motor deficits and no sensory deficits noted Speech: speech normal Psych mental status grossly normal Assessment & Plan Assessment/Plan (1) Acute UTI: (2) Bacteremia: (3) Acute kidney injury: PLAN: Plan Patient is a 73-year-old female who presented to [facility] ED on 09/27/2023 with fevers. 1. CAUTI, recent history of UTI with hydronephrosis requiring placement of ureteral stents UA on admit infectious. Urine culture positive for Enterococcus faecium sensitive to all but ampicillin and streptomycin. Complicated by known ureteral stents placed during previous admission on 09/11. Catheter was exchanged on admission. ? Urology evaluated on 10/01, appreciate recommendations. Continue Dennis catheter on discharge with outpatient follow-up for straight cath teaching. Hopeful for removal of ureteral stents if patient does well with straight cathing. Infectious disease following as below, continue p.o. linezolid. 2. Enterococcus bacteremia ? Blood cultures 09/28 and urine culture positive for Enterococcus faecium. Repeat blood cultures 09/29 negative after 48 hours. TTE with no concern for vegetations. Infectious disease following. De-escalated to p.o. linezolid on 10/01, will plan for 10-day course total, stop date of 10/07. 3. MAJO, improving ? Creatinine 4.13 on admit, baseline creatinine around 1.8. Renal ultrasound showed mild left hydronephrosis. Likely mixed MAJO with prerenal etiology from infection and poor p.o. intake as well as postobstructive etiology from catheter malfunction. Improving, creatinine 3.09 on 10/01 with good urine output. Monitor daily BMP. Chronic medical conditions: ? History of colon cancer with ostomy: Last chemotherapy 3 weeks ago. Further chemo has been delayed due to patient being ill. Chest x-ray on admit showed indeterminate nodular opacities within the left mid and right lung base suspicious for neoplastic process. Does have known metastases. Follow-up with oncology on discharge. ? 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 ? GERD: Continue home PPI. DVT prophylaxis: Eliquis CODE STATUS: DNR CCA, DNI Expected disposition: Home, 1 to 2 days Total clinical time spent by myself addressing the patient's medical issues, reviewing all the data, and collaborating with patient's care team: 35 minutes. Charges/Coding Visit Charges Inpatient E&M: 20224 Subs Hosp L2
--- NOTE | 2023-10-01 16:45 | PCM.PN.ID ---
Physical Exam Narrative Feeling better, no fever, no abd pain Const alert and no apparent distress General Appearance: cooperative Resp normal air movement and clear to auscultation bilaterally Cardio regular rate and regular rhythm GI soft to palpation, non-tender and non-distended Skin no rashes or lesions noted ID ID: Route of nutrition/ use of supplements: [] Nutritional Intake: [] IV Site: [] Dennis Catheter: [] Assessment & Plan Assessment/Plan (1) Acute UTI: (2) Bacteremia: PLAN: Bcx and ucx with enterococcus faecium. Cont linezolid, will change to po. Plan on 10 days total of abx. Will follow
[2023-10-01 18:01] VITALS: TEMP 37.4
[2023-10-01] MEDS: Linezolid 600 MG Tablet PO (21:22)
[2023-10-01 23:00] VITALS: BP 131/76; PULSE 76; RESP 16; TEMP 36.9; O2SAT 98
[2023-10-02] MEDS: 0.9% Normal Saline (1000mL) 1,000 ML 125 ML IV (06:13)
[2023-10-02 06:16] VITALS: BP 143/71; PULSE 86; RESP 18; TEMP 37; O2SAT 96
[2023-10-02 08:27] LABS: Anion Gap 7 (5-15); BUN 27 mg/dL (7-18); BUN/Creat Ratio 9.8 RATIO (10-20); Calcium,Total 8.7 mg/dL (8.5-10.1); Chloride 116 mmol/L (98-107); Creatinine, Serum 2.76 mg/dL (0.55-1.02); EST Glomerular Filtration Rate 18 mL/min (>60); Est Glom Filt Rate - Afr Amer 22 mL/min (>60); Estimated Creatinine Clearance 18.18 ml/min; Glucose 86 mg/dL (74-106); Potassium 4.8 mmol/L (3.5-5.1); Sodium Level 140 mmol/L (136-145)
[2023-10-02 08:33] VITALS: BP 160/88; PULSE 97; RESP 16; TEMP 36.9; O2SAT 97
[2023-10-02] MEDS: Pantoprazole Sodium 40 MG Tablet PO (08:36)
[2023-10-02] MEDS: Linezolid 600 MG Tablet PO (08:36)
[2023-10-02] MEDS: Nystatin Powder 15gm Bottle 1 APPLIC TOPICAL (08:36)
[2023-10-02] MEDS: amLODIPine 5 MG Tablet PO (08:36)
[2023-10-02] MEDS: APIXABAN 5 MG TABLET PO (08:36)
[2023-10-02] MEDS: Loperamide 2 MG Capsule PO (08:41)
[2023-10-02 10:21] LABS: Pathologist Review Reviewed
[2023-10-02 13:21] VITALS: BP 144/74; PULSE 91; RESP 15; TEMP 36.9; O2SAT 99
--- NOTE | 2023-10-02 13:23 | DCINST_ITS ---
Discharge Instructions Diet Discharge Diet: No restrictions Activity Discharge Activity: No Restrictions Weight Bearing Status: Full weight bearing Follow Up Care Please Follow Up With: Adrián Mckee MD When: As needed Test Results: Test results from this visit will be discussed in further detail at your follow- up appointment, if applicable. Pending Tests Upon Discharge: None Discharge Plan Admission Admit Date/Time: 09/27/23 17:43 Primary Reason for Your Visit: Fevers Attending Provider: Enoch Desir Primary Care Provider: Adrián Mckee Consulting Providers: Snow Millard; Arthur Valverde; Janet Curran; Adrián Hunt Instructions Additional Instructions / Restrictions: Complete antibiotics as noted below. Please have a repeat BMP drawn in 5 to 7 days to evaluate your kidney function. Follow-up with your primary care doctor in the next 1 to 2 weeks. Discharge Orders/Prescriptions Prescriptions: New linezolid 600 mg tablet 600 mg PO Q12H 6 Days Qty: 12 0RF Continued omeprazole 20 MG capsule 40 mg PO DAILY loperamide 2 mg capsule 2 mg PO Q6H PRN (Reason: DIARRHEA ) loratadine [Claritin] 10 mg tablet 10 mg PO DAILY Eliquis 5 mg tablet 5 mg PO BID amlodipine 5 mg tablet 5 mg PO DAILY Rx Instructions: Hold for SBP less than 130 mmHg Referrals / Follow Up: Adrián Mckee MD [Primary Care Provider] - Disposition Disposition (needs filled in before D/C Order can be placed): Home, Self Care
--- NOTE | 2023-10-02 13:26 | PCM.DC.SUM ---
Providers Date of Admission: 09/27/23 Date of Discharge: 10/02/23 Primary Care Physician: Dr. Adrián Mckee MD Consultations 09/27/23 20:04 Consult: Onc/Wound/insurance commissioner Routine Comment: Reason for Consult:: ostomy 09/28/23 11:52 Consult: Infectious Disease Routine Consulting Provider: Arthur Valverde Reason for Consult: bacteremia. EMERGENT Consult: No Notified: Yes Date Notified: 09/28/23 Time Notified: 13:36 Method of Notification: Answering Service 09/30/23 09:31 Consult: Urology Routine Consulting Provider: Janet Curran Reason for Consult: hydronephrosis. ureteral stent EMERGENT Consult: No Notified: Yes Date Notified: 09/30/23 Time Notified: 11:00 Method of Notification: Text Reason For Visit: COMPLICATED UTI Diagnosis Discharge Diagnosis (1) Acute UTI: Status: Acute Code(s): N39.0 - Urinary tract infection, site not specified (2) Bacteremia: Status: Acute Code(s): R78.81 - Bacteremia (3) Acute kidney injury: Status: Acute Code(s): N17.9 - Acute kidney failure, unspecified Medications at Discharge Home Medications omeprazole 20 mg capsule,delayed release 40 mg PO DAILY ACID REFLUX 01/12/17 loperamide 2 mg capsule 2 mg PO Q6H PRN DIARRHEA 08/01/23 loratadine 10 mg tablet (Claritin) 10 mg PO DAILY ALLERGIES 08/01/23 amlodipine 5 mg tablet 5 mg PO DAILY BLOOD PRESSURE 09/11/23 apixaban 5 mg tablet (Eliquis) 5 mg PO BID BLOOD THINNER 09/11/23 linezolid 600 mg tablet 600 mg PO Q12H 6 days #12 tabs 10/02/23 Hospital Course Operations None Procedures EKG, Transthoracic echo and - (Chest x-ray, renal ultrasound) Summary of Care Provided Minutes Spent on Discharge: 35 Hospital Course: Patient is a 73-year-old female who presented to [facility] ED on 09/27/2023 with fevers. Hospital course as noted below. Discharged home in stable condition on 10/02/2023. 1. CAUTI, recent history of UTI with hydronephrosis requiring placement of ureteral stents UA on admit infectious. Urine culture positive for Enterococcus faecium sensitive to all but ampicillin and streptomycin. Complicated by known ureteral stents placed during previous admission on 09/11. Catheter was exchanged on admission. ? Urology evaluated on 10/01. Plan is to continue Dennis catheter on discharge with outpatient follow-up for straight cath teaching. Hopeful for removal of ureteral stents if patient does well with straight cathing. Infectious disease followed as below, p.o. linezolid on discharge. 2. Enterococcus bacteremia ? Blood cultures 09/28 and urine culture positive for Enterococcus faecium. Repeat blood cultures 09/29 negative after 48 hours. TTE with no concern for vegetations. Infectious disease followed. De-escalated to p.o. linezolid on 10/01 with plan for 10-day course total, stop date of 10/07. 3. MAJO, improving Creatinine 4.13 on admit, baseline creatinine around 1.8. Renal ultrasound showed mild left hydronephrosis. Likely mixed MAJO with prerenal etiology from infection and poor p.o. intake as well as postobstructive etiology from catheter malfunction. ? Creatinine 2.76 on discharge. Adequate urine output. Recommend repeat BMP in 5 to 7 days to ensure resolution of MAJO. Chronic medical conditions: ? History of colon cancer with ostomy: Last chemotherapy 3 weeks ago. Further chemo has been delayed due to patient being ill. Chest x-ray on admit showed indeterminate nodular opacities within the left mid and right lung base suspicious for neoplastic process. Does have known metastases. Follow-up with oncology on discharge. ? 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 ? GERD: Continue home PPI. Total clinical time spent by myself addressing the patient's discharge needs: 35 minutes. Physical Exam Const alert, oriented x3, no apparent distress and average body habitus Constitutional Narrative: Pleasant elderly female, sitting comfortably in bed, conversing normally, no acute distress. General Appearance: cooperative and comfortable HEENT normocephalic, head/scalp atraumatic, hearing grossly normal bilaterally, nasal mucous membranes and turbinates normal and moist oral mucous membranes Eyes PERRL, EOMs intact bilaterally and conjunctivae normal Neck full ROM, no lymphadenopathy and supple Lymph Lymphatic: no lymphadenopathy noted Chest inspection of chest normal Resp normal respiratory effort, normal air movement, no use of accessory muscles and clear to auscultation bilaterally Cardio regular rate, regular rhythm, no murmurs and peripheral pulses 2+ throughout GI normal to inspection, nondistended, normoactive bowel sounds, soft to palpation, non-tender and non-distended GI Narrative: Ostomy in place without issues. Back/Spine normal ROM Extremity normal to inspection, full ROM and no pedal edema Skin no rashes or lesions noted Neuro no focal motor deficits and no sensory deficits noted Speech: speech normal Psych mental status grossly normal Weight / BMI Weight Weight: 73.7 kg Body Mass Index (BMI) 25.4 ABG / Lab / Microbiology Data 10/01/23 06:19 10/02/23 07:26 Laboratory: Laboratory Results - last 24 hr 09/28/23 05:32: Diff Path Review Reviewed 10/02/23 07:26: Sodium 140, Potassium 4.8, Chloride 116 H, Carbon Dioxide 17.0 L, Anion Gap 7, BUN 27 H, Creatinine 2.76 H, Estim Creat Clear Calc 18.18, Est GFR (MDRD) Af Amer 22 L, Est GFR (MDRD) Non-Af 18 L, BUN/Creatinine Ratio 9.8 L, Glucose 86, Calcium 8.7 Microbiology: Microbiology 09/28/23 19:40 Blood Culture (Wb) - Port Blood Culture - Final Enterococcus faecium 09/28/23 14:33 Blood Culture (Wb) - Anticubital Right Blood Culture - Preliminary No growth in 48 hours. 09/29/23 05:47 Blood Culture (Wb) - Anticubital Left Blood Culture - Preliminary No growth in 48 hours. 09/29/23 05:40 Blood Culture (Wb) - Anticubital Right Blood Culture - Preliminary No growth in 48 hours. 09/27/23 15:08 Urine, Catheterized Urine Culture - Final Enterococcus faecium Presumptive C albicans 09/27/23 15:05 Blood Culture (Wb) - Port Blood Culture - Final Enterococcus faecium 09/27/23 14:50 Blood Culture (Wb) - Port Blood Culture - Preliminary No growth in 48 hours. 09/27/23 15:04 Blood Culture (Wb) #2 - Port Bacteria Detection (PCR) - Final Enterococcus faecium Mariajose/vanB Resistance Marker 09/27/23 13:55 Mucosa - Nose SARS-CoV-2, Influenza & RSV (PCR) - Final Radiography Diagnostic Testing: Radiology Impression Echocardiogram 09/29/23 14:55 Interpretation Summary Normal LV size. Left ventricular systolic function is normal. The estimated ejection fraction is 65 %. Structurally normal valves. Ordering Physician: Adrián Hunt Referring Physician: Adrián Mckee Performed By: Josue Yuan RCS D/C Instructions Discharge Diet: No restrictions Weight Bearing Status: Full weight bearing Pending Tests Upon Discharge: None Please Follow Up With: Adrián Mckee MD When: As needed Meaningful Use Info Meaningful Use Diagnoses (Choose all that apply): None applicable Discharge Plan Admission Admit Date/Time: 09/27/23 17:43 Primary Reason for Your Visit: Fevers Attending Provider: Enoch Desir Primary Care Provider: Adrián Mckee Consulting Providers: Snow Millard; Arthur Valverde; Janet Curran; Adrián Hunt Instructions Additional Instructions / Restrictions: Complete antibiotics as noted below. Please have a repeat BMP drawn in 5 to 7 days to evaluate your kidney function. Follow-up with your primary care doctor in the next 1 to 2 weeks. Discharge Orders/Prescriptions Prescriptions: New linezolid 600 mg tablet 600 mg PO Q12H 6 Days Qty: 12 0RF Continued omeprazole 20 MG capsule 40 mg PO DAILY loperamide 2 mg capsule 2 mg PO Q6H PRN (Reason: DIARRHEA ) loratadine [Claritin] 10 mg tablet 10 mg PO DAILY Eliquis 5 mg tablet 5 mg PO BID amlodipine 5 mg tablet 5 mg PO DAILY Rx Instructions: Hold for SBP less than 130 mmHg Referrals / Follow Up: Adrián Mckee MD [Primary Care Provider] - 10/11/23 10:50 am (ROSA MENJIVAR) Disposition Disposition (needs filled in before D/C Order can be placed): Home, Self Care Charges/Coding Visit Charges Inpatient E&M: 43751 Disch Hosp >30min
--- NOTE | 2023-10-02 14:29 | CASEMGMT ---
Addendum entered by Anthony Contreras 10/02/23 15:09: This RN CM calls [facility] regarding new Rx for Linezolid. They state that the pt insurance will cover most of the cost and not require a prior auth. $27.59 to get the Rx filled. Original Note: This RN CM to room for any potential DC needs. Pt states that she has an appt with Urology tomorrow to have her Dennis removed. Pt states she will then self cath at home. Pt states that she feels safe being DC home alone. Pt neighbor is to pick pt up from hospital. Pt denies the needs for outpt Tx, HHC, or SNF at this time. Pt was educated how to go about getting this setup after DC if need be. Pt denies any other questions or concerns at this time.
[2023-10-02] MEDS: 0.9 % NaCl (Sterile) Posiflush 10 mL IV (15:25)
== END 2023-10-02 16:22 | disposition home or self-care (01) | DRG 699 ==
LOC: ED 17:44 → MS3 19:09
PROVIDERS: Admitting Provider Internal Medicine; Emergency Provider Emergency Medicine; PCP Family Medicine; Visit Provider Hospitalist
DX: T83.511A Infection and inflammatory reaction due to indwelling urethral catheter, initial encounter (principal); N17.9 Acute kidney failure, unspecified; R78.81 Bacteremia; N13.6 Pyonephrosis; D64.9 Anemia, unspecified; K21.9 Gastro-esophageal reflux disease without esophagitis; B96.1 Klebsiella pneumoniae [K. pneumoniae] as the cause of diseases classified elsewhere; Z87.891 Personal history of nicotine dependence; Z79.01 Long term (current) use of anticoagulants; Z80.8 Family history of malignant neoplasm of other organs or systems; Z80.3 Family history of malignant neoplasm of breast; B95.2 Enterococcus as the cause of diseases classified elsewhere; Z66 Do not resuscitate; Z92.21 Personal history of antineoplastic chemotherapy; Z85.038 Personal history of other malignant neoplasm of large intestine; Y82.9 Unspecified medical devices associated with adverse incidents
CPT/HCPCS: 36415; 36591; 71045; 76770; 80048; 80053; 81001; 83605; 85025; 87040; 87077; 87086; 87088; 87149; 87186; 87631; 93306; 97110; 97162; 97165; 97530; 97802; 99285; J2020; J7030; J7040; A4216

== ENCOUNTER → 2023-10-09 | Outpatient (CLI) | payer MEDICARE, OTHER, SELFPAY ==
--- NOTE | 2023-10-09 15:26 | US_ITS ---
STUDY: RENAL ULTRASOUND - COMPLETE REASON FOR EXAM: Female, 73 years old. HYDRONEPHROSIS TECHNIQUE: Ultrasound evaluation of the kidneys was performed with real-time and static dugan-scale imaging. COMPARISON: None. FINDINGS: RIGHT KIDNEY: Normal location of the right kidney, which is normal in size. The right kidney measures 11.2 x 5.3 x 5.3 cm. There is a normal cortex of the right kidney. The renal cortex measures 1.1 cm. There is no right renal mass or cyst. There are no right renal calculi. There is moderate hydronephrosis. DISTAL RIGHT URETER: There is non-visualization of the distal right ureter. There is no demonstrated right ureterovesical junction calculus. There is a visualized right ureteral jet. LEFT KIDNEY: Normal location of the left kidney, which is normal in size. The left kidney measures 10.9 x 4.2 x 4.7 cm. There is a normal cortex of the left kidney. The renal cortex measures 1.1 cm. There is no left renal mass or cyst. There are no left renal calculi. There is moderate hydronephrosis. DISTAL LEFT URETER: There is non-visualization of the distal left ureter. There is no demonstrated left ureterovesical junction calculus. There is a visualized left ureteral jet. BLADDER: The distended urinary bladder has a volume of 133.1 ml. There are curvilinear structures within the bladder which have the appearance of stents. There is a normal wall thickness of the distended urinary bladder. There is no demonstrated mass within the urinary bladder. There are no demonstrated bladder calculi. US/Kidney and Bladder IMPRESSION: Moderate bilateral renal obstruction.. Curvilinear structures within the bladder possibly representing stents. Clinical correlation recommended. Recommend KUB and possibly CT for further evaluation Recommend KUB or CT for further evaluation N.B. : The above Results were Read Back by Dimitri Fields MD to Janet Curran MD, and understanding confirmed on 10/09/2023 17:13:07 (ET). Electronically Signed: Dimitri Fields MD at 17:33 EST ,
== END | disposition home or self-care (01) ==
LOC: US 15:23
PROVIDERS: PCP Family Medicine; Referring Provider Urology; Visit Provider Urology
DX: N13.30 Unspecified hydronephrosis (principal)
CPT/HCPCS: 76770

== ENCOUNTER 2023-11-05 19:07 | Inpatient (IN) | payer MEDICARE, OTHER, SELFPAY ==
[2023-11-05 19:09] VITALS: BP 116/72; PULSE 75; RESP 18; TEMP 36.3; O2SAT 100; BMI 23.6
--- NOTE | 2023-11-05 19:25 | EX.ED.DYSGE1 ---
HPI History of Present Illness Chief Complaint: Fall Informant: patient Narrative Narrative: Patient presents after a fall at home. Patient states she was walking down steps at home. They were wooden steps and her feet slipped. This was 2 steps from the bottom. She landed on her buttocks sacrum. But did then rolled back and hit the mid upper back. Did not hit her head. She was able to get up and walk around afterwards. She is sore in those 2 areas. Patient also states that she just has generalized weakness and tiredness. I admitted her here for UTI and MAJO at the beginning of September. She was in the hospital until the . She states she was back in the hospital up at [facility] about the or so september. They placed nephrostomy tubes and removed her renal stents. She has been home now for about 2 weeks. She states she is just not getting her energy back. She is not worsening. She is not having fevers chills nausea or vomiting. She is just not getting a lot better. She is set to start chemo again for colon cancer but just feels a little too weak to do that. She would like to make sure she is not having worsening kidney function or dehydration or anemia causing this. [facility] Medical History Acid reflux Acidosis, lactic Acute dehydration Adenocarcinoma of cecum MAJO (acute kidney injury) Anemia Anticoagulant long-term use Bacteremia due to Klebsiella pneumoniae Bilateral hydronephrosis Chronic indwelling Dennis catheter Complicated UTI (urinary tract infection) Encounter for adjustment or management of vascular access device Fever in adult Former smoker History of colon cancer History of colon cancer Kidney disease Peritoneal metastases Pulmonary embolism s/p port placement Sepsis Sinus tachycardia by electrocardiography Ureteral stent present Urinary retention UTI (urinary tract infection) Home Medications omeprazole 20 mg capsule,delayed release 40 mg PO DAILY ACID REFLUX 01/12/17 [History Last Taken 09/27/23] loperamide 2 mg capsule 2 mg PO Q6H PRN DIARRHEA 08/01/23 [History Last Taken 09/27/23] loratadine 10 mg tablet (Claritin) 10 mg PO DAILY ALLERGIES 08/01/23 [History Last Taken 09/27/23] amlodipine 5 mg tablet 5 mg PO DAILY BLOOD PRESSURE 09/11/23 [History Last Taken 09/27/23] apixaban 5 mg tablet (Eliquis) 5 mg PO BID BLOOD THINNER 09/11/23 [History Last Taken 11/05/23 09:00] magnesium 200 mg tablet 400 mg PO DAILY 11/05/23 [History Last Taken Unknown] Allergy/AdvReac Type Severity Reaction Status Date / Time No Known Allergies Allergy Verified 11/05/23 19:09 Family History Mother Hypertension Father Melanoma Brother Melanoma Aunt Breast cancer Surgical History History of appendectomy History of bowel resection History of Hx of ileostomy S/P laparoscopic colectomy s/p port placement (~12/06/18) Social History Smoking Status: Former smoker alcohol intake: current alcohol intake frequency: holidays/special occasions only substance use type: does not use caffeine: Yes what type of physical activity do you participate in: walking and weight training frequency: daily seatbelt use: always do you feel safe at home: Yes additional social history: - 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 No change. Musculoskeletal Musculoskeletal: Reports other Details: See history of present illness. Integumentary Denies rash Neurologic Neurologic: Denies headache(s) Hematologic/Lymphatic Hematologic/Lymphatic: Reports easy bleeding and easy bruising; Denies lymphadenopathy Allergic/Immunologic Allergic/Immunologic ED: Denies urticaria EXAM Physical Exam Narrative Exam Narrative: CONSTITUTIONAL: Patient is nontoxic in appearance. The patient looks comfortable. Work of breathing looks normal. HEENT: No notable trauma. Mucous membranes are slightly dry. No exudate. EYES: No conjunctival injection. No proptosis. NECK:No JVD. No stridor. CARDIOVASCULAR: Regular rate. Regular rhythm. No notable murmur. No JVD. RESPIRATORY: No respiratory distress. Breathing is unlabored. No wheezes. No rhonchi. No rales. No pain with a deep breath. No chest wall tenderness. Saturations are normal at 100% on room air showing no hypoxia. Patient does state that she is somewhat winded but is not sure if it is dyspnea or just tiredness. GASTROINTESTINAL: Not distended. Bowel sounds are normal. No tenderness. No guarding. No rebound. No palpable mass. No bruit is heard. Ostomy looks healthy. GENITOURINARY: Nephrostomy tubes appear to be in place in the back. Clean dressings. Normal drainage without any blood. MUSCULOSKELETAL: Patient has some tenderness at the very top of the sacrum in the midline. But there is no bruising yet even though she is on Eliquis. She also has a little tenderness in the mid to lower thoracic area. But again there is no skin changes bruising or swelling. NEUROLOGICAL: Patient is alert and appropriate. No focal deficit noted. SKIN: No noted rashes. No diaphoresis. PSYCHIATRIC: Patient is calm. Mood is appropriate. Const Vital Signs: 11/05/23 19:09 11/05/23 19:13 11/05/23 20:31 Temperature 97.4 F L Temperature Source Temporal Pulse Rate 75 73 Respiratory Rate 18 16 Respiratory Effort Normal Non-Labored Blood Pressure 116/72 132/84 H Blood Pressure Mean 86 100 Pulse Ox 100 100 Oxygen Delivery Method Room Air Room Air Room Air MDM MDM MDM Narrative Medical decision making narrative: Patient CBC shows mild elevation of white count at 12.4 which is nonspecific. Mild anemia. Electrolytes show markedly low sodium of 122. Creatinine is up a bit at 2.88. Patient states she has been really cutting back on sodium because she was supposed to be on a renal diet. This is certainly possible. She has never had significant high bone natremia before. On the her sodium was 133. I did add lactic acid which was normal. I added magnesium which was normal. Patient's urine does show signs of increased white count. But these are nephrostomy tubes. I am sending off for culture. Patient has not been having fevers. I did bring up labs from outpatient and [facility] admission. On the she had a creatinine of 2.39 and on the she had about 2.36. This is a slight rise. Lab Data Attestation: I reviewed the patient's lab results. Labs: Laboratory Results - last 24 hr 11/05/23 11/05/23 11/05/23 19:40 20:40 20:54 WBC 14.4 H RBC 3.49 L Hgb 9.8 L Hct 28.9 L MCV 82.8 MCH 28.1 MCHC 33.9 RDW Std Deviation 47.4 H RDW Coeff of Ismael 15.8 H Plt Count 458 H MPV 9.2 Immature Gran % (Auto) 3.200 H Neut % (Auto) 79.6 H Lymph % (Auto) 7.7 L [place] % (Auto) 8.0 Eos % (Auto) 1.0 Baso % (Auto) 0.5 Absolute Neuts (auto) 11.5 H Absolute Lymphs (auto) 1.11 Nucleated RBC % 0 Sodium 122 L Potassium 5.0 Chloride 93 L Carbon Dioxide 16.0 L Anion Gap 13 BUN 73 H Creatinine 2.88 H Estim Creat Clear Calc 17.42 Est GFR (MDRD) Af Amer 21 L Est GFR (MDRD) Non-Af 17 L BUN/Creatinine Ratio 25.3 H Glucose 119 H Lactic Acid 1.2 Calcium 9.6 Magnesium 2.0 Urine Color Yellow Urine Clarity Cloudy Urine pH 6.0 Ur Specific [place] 1.020 Urine Protein 500 H Urine Glucose (UA) Normal Urine Ketones Negative Urine Occult Blood 250 H Urine Nitrite Negative Urine Bilirubin Negative Urine Urobilinogen Normal Ur Leukocyte Esterase 500 H Urine RBC 0 SEEN Urine WBC >100 SEEN Ur Squamous Epith Cells 0 SEEN Urine Bacteria 0 SEEN Urine Mucus 0 SEEN Radiography Diagnostic Testing: Clinical Impression(s) from Imaging Studies Chest X-Ray 11/05/23 20:00 IMPRESSION: Right basilar atelectasis, otherwise no acute cardiac pulmonary disease. Left-sided chest port as described. Electronically Signed: Radha Chavez MD at 21:04 EST , Lumbar Spine X-Ray 11/05/23 20:00 IMPRESSION: Multilevel degenerative disease as described with no acute fracture or subluxation. Electronically Signed: Radha Chavez MD at 21:05 EST , Discharge Plan Dx/Rx/DC Orders Clinical Impression: Creatinine elevation, Fall at home, Generalized weakness, Acute hyponatremia Disposition Disposition: Acute Care Hospital [facility]
[2023-11-05 19:59] LABS: Absolute Lymphocyte Count 1.11 X10^3/uL (0.83-4.51); Absolute Neutrophil Count 11.5 X10^3/uL (2.0-7.7); Basophil# 0.07 X10^3/uL; Basophil% 0.5 % (0-1); Eosinophil# 0.14 X10^3/uL; Hematocrit 28.9 % (37-47); Hemoglobin 9.8 g/dL (12.0-15.0); Lymphocyte # 1.11 X10^3/ul (0.83-4.51); Lymphocyte % 7.7 % (19-41); Mean Corp Hgb Conc 33.9 g/dL (32-36); Mean Corpuscular Hgb 28.1 pg (27.0-32.0); Mean Corpuscular Volume 82.8 fL (81-99); Mean Platelet Vol. 9.2 fl (6.2-12.0); Monocyte# 1.15 X10^3/uL; NRBC Flagged by Analyzer 0 % (0-5); Neutrophil # 11.47 X10^3/uL (2.7-7.7); Neutrophil % 79.6 % (47-70); Platelet Count 458 K/mm3 (150-450); RBC Distribution Width CV 15.8 % (11.6-14.6); RBC Distribution Width SD 47.4 fl (35.1-43.9); Red Blood Count 3.49 M/mm3 (4.2-5.4); White Blood Count 14.4 K/mm3 (4.4-11.0)
[2023-11-05 20:00] VITALS: BP 130/70
--- NOTE | 2023-11-05 20:00 | RAD_ITS ---
STUDY: X-RAY CHEST REASON FOR EXAM: Female, 73 years old. SOB, trauma TECHNIQUE: PA and lateral views of the chest. COMPARISON: 09/27/2023. FINDINGS: There is a left-sided chest port with the tip in the middle SVC. There is right lower lobe atelectasis, remainder of the lung grady are clear . There is no demonstrated pleural abnormality. Normal size heart. Normal mediastinum and mamta. Normal visualized pulmonary arteries. There is atherosclerotic calcification of the aortic arch with tortuosity. There are diffuse degenerative changes of the visualized thoracic spine. Diffuse osteopenia. There is no demonstrated abnormality of the visualized soft tissue structures of the upper abdomen. RAD/Chest PA and Lateral IMPRESSION: Right basilar atelectasis, otherwise no acute cardiac pulmonary disease. Left-sided chest port as described. Electronically Signed: Radha Chavez MD at 21:04 EST ,
--- NOTE | 2023-11-05 20:00 | RAD_ITS ---
STUDY: X-RAY - LUMBAR SPINE REASON FOR EXAM: Female, 73 years old. trauma TECHNIQUE: 3 view(s) of the lumbar spine were obtained. COMPARISON: None FINDINGS: There is a slightly exaggerated lumbar lordosis. Minimal scoliosis with convexity to the left versus tilted positioning. There is a normal alignment of the vertebrae. There is multilevel endplate spondylosis of the lumbar vertebrae. There is multi-level degenerative disc disease with multi-level disc space narrowing. There is no demonstrated fracture. Multilevel bilateral facet hypertrophy, more severe from L4 to S1. Bilateral nephrostomy catheters is place. Degenerative disease of bilateral SI joints. RAD/Lumbar Spine 2 or 3 Views IMPRESSION: Multilevel degenerative disease as described with no acute fracture or subluxation. Electronically Signed: Radha Chavez MD at 21:05 EST ,
[2023-11-05 20:18] LABS: Anion Gap 13 (5-15); BUN 73 mg/dL (7-18); BUN/Creat Ratio 25.3 RATIO (10-20); Calcium,Total 9.6 mg/dL (8.5-10.1); Chloride 93 mmol/L (98-107); Creatinine, Serum 2.88 mg/dL (0.55-1.02); EST Glomerular Filtration Rate 17 mL/min (>60); Est Glom Filt Rate - Afr Amer 21 mL/min (>60); Estimated Creatinine Clearance 17.42 ml/min; Glucose 119 mg/dL (74-106); Sodium Level 122 mmol/L (136-145)
[2023-11-05 20:31] VITALS: BP 132/84; PULSE 73; RESP 16; O2SAT 100
[2023-11-05] MEDS: Acetaminophen 500 MG Tablet PO (20:50)
--- NOTE | 2023-11-05 20:57 | ED.RN ---
patient with bilateral nephrostomy tubes. unable to change to clean bag because they were incompatible with supplies at [facility]. no port to draw sample from. sample collected from nephrostomy tubes with original bags.
[2023-11-05 21:05] LABS: Bacteria 0 SEEN /hpf (None Seen); Mucous, Urine 0 SEEN /hpf (<or=2+); Red Blood Cells-Urine 0 SEEN /hpf (0-5); Squamous Epithelial Cells - UA 0 SEEN /hpf (5-10)
[2023-11-05 21:07] LABS: Color, Urine Yellow (Yellow); Glucose, Dipstick Normal (Normal); Ketone-Dipstick Negative (Negative); Leukocyte Esterase-Dipstick 500 /ul (Negative); Nitrite-Dipstick Negative (Negative); Occult Blood-Urine 250 /ul (Negative); Protein-Dipstick 500 mg/dl (Negative); Urine Bilirubin Dipstick Negative (Negative); Urine Clarity Cloudy (Clear); Urine Urobilinogen Normal (Normal)
--- NOTE | 2023-11-05 21:16 | PCM.HP.STD ---
HPI - General General Date of Admission: 11/05/23 Date of Service: 11/05/23 Chief Complaint: Fall at Home. HPI Narrative SANTI NAM, is a 73 F with a past medical history of essential hypertension, history of PE; on Eliquis, Chronic Anemia, GERD, history of metastatic Colon Cancer (2018); s/p laparoscopic colectomy with ileostomy and PORT on chemotherapy (last tx ~1 month ago) and recent history of UTI with MAJO (October 02, 2023 treated with oral Linezolid); in the setting of CKD; stage III with baseline creatinine of ~1.8 mg/dL; s/p recent nephrostomy tubes placed with removal of her renal stents at the [facility] on October 15, 2023 who presents to [facility] ER complaining of fall at home. Ms. Nam reports her symptoms began approximately one hour prior to arrival when she lost her balance and fell onto her buttocks and then striking her mid-upper back with residual soreness since that time. She denies head trauma or LOC associated with her fall and she states she just lost her balance when she slipped on wooden steps. She states that she has never recovered her previous energy and level of function that she had prior to her previous admission with persistent generalized weakness and tiredness - but she is careful to also point out that she is not getting worse. She denies related fever, chills, nausea, vomiting or excessive free-water intake with normal output noted from both her nephrostomy tubes and ileostomy but she does admit to being placed on a special renal diet. In the ER she was noted to have a laboratory evidence of Hyponatremia of 122 mmol/L present on admission complicated by a persistent MAJO; on CKD; stage III with persistently elevated creatinine of 2.88 mg/dL present on admission with a UA positive for Acute Cystitis; without hematuria with leukocytosis of 14.4 present on admission compounded by clinical evidence of generalized weakness with ambulatory dysfunction and mechanical fall after recent nephrostomy tube placement at the [facility] and she was then admitted to the PCU for onging care for a stay that is expected to be greater than 48 hours. [facility] Medical History Acid reflux Acidosis, lactic Acute dehydration Adenocarcinoma of cecum MAJO (acute kidney injury) Anemia Anticoagulant long-term use Bacteremia due to Klebsiella pneumoniae Bilateral hydronephrosis Chronic indwelling Dennis catheter Complicated UTI (urinary tract infection) Encounter for adjustment or management of vascular access device Fever in adult Former smoker History of colon cancer History of colon cancer Kidney disease Peritoneal metastases Pulmonary embolism s/p port placement Sepsis Sinus tachycardia by electrocardiography Ureteral stent present Urinary retention UTI (urinary tract infection) Home Medications omeprazole 20 mg capsule,delayed release 40 mg PO DAILY ACID REFLUX 01/12/17 [History Last Taken 09/27/23] loperamide 2 mg capsule 2 mg PO Q6H PRN DIARRHEA 08/01/23 [History Last Taken 09/27/23] loratadine 10 mg tablet (Claritin) 10 mg PO DAILY ALLERGIES 08/01/23 [History Last Taken 09/27/23] amlodipine 5 mg tablet 5 mg PO DAILY BLOOD PRESSURE 09/11/23 [History Last Taken 09/27/23] apixaban 5 mg tablet (Eliquis) 5 mg PO BID BLOOD THINNER 09/11/23 [History Last Taken 11/05/23 09:00] magnesium 200 mg tablet 400 mg PO DAILY 11/05/23 [History Last Taken Unknown] Allergy/AdvReac Type Severity Reaction Status Date / Time No Known Allergies Allergy Verified 11/05/23 19:09 Family History Mother Hypertension Father Melanoma Brother Melanoma Aunt Breast cancer Surgical History History of appendectomy History of bowel resection History of Hx of ileostomy S/P laparoscopic colectomy s/p port placement (~12/06/18) Social History Smoking Status: Former smoker alcohol intake: current alcohol intake frequency: holidays/special occasions only substance use type: does not use caffeine: Yes what type of physical activity do you participate in: walking and weight training frequency: daily seatbelt use: always do you feel safe at home: Yes additional social history: - 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 Eyes: Denies change in vision or discharge from eyes. ENT: Denies runny nose or sore throat. Cardiovascular: Denies chest pain or palpitations Respiratory: Denies cough or dyspnea Gastrointestinal: Denies abdominal pain, diarrhea, nausea or vomiting Genitourinary: Patient admits to milky discoloration of urine upon self-catheterization that has been been worsening for the past week. Musculoskeletal: Patient admits to mid-upper back pain since her fall. Integumentary: Denies rash or abscess. Neurologic: Denies headache or focal neurologic deficits. Hematologic/Lymphatic: Reports easy bleeding and easy bruising; Denies lymphadenopathy Allergic: Denies lip swelling, tongue swelling or urticaria. Psychiatric: Patient denies uncontrolled depression or anxiety. 14 point review systems otherwise negative except for positives noted above in HPI. Vital Signs Vital Signs Vital Signs: 11/05/23 19:09 11/05/23 19:13 11/05/23 20:31 Temperature 97.4 F L Temperature Source Temporal Pulse Rate 75 73 Respiratory Rate 18 16 Respiratory Effort Normal Non-Labored Blood Pressure 116/72 132/84 H Blood Pressure Mean 86 100 Pulse Ox 100 100 Oxygen Delivery Method Room Air Room Air Room Air Weight Weight: 150 lb 12.739 oz Body Mass Index (BMI) 23.6 Physical Exam Const alert, oriented x3, no apparent distress, average body habitus and healthy appearing General Appearance: cooperative HEENT normocephalic, head/scalp atraumatic and hearing grossly normal bilaterally HEENT Narrative: Mucous membranes are slightly dry. Eyes PERRL, EOMs intact bilaterally and conjunctivae normal Neck no lymphadenopathy and supple Resp normal respiratory effort, no retractions and no use of accessory muscles Cardio regular rate and regular rhythm GI normal to inspection, nondistended, normoactive bowel sounds, soft to palpation, non-tender and non-distended Extremity normal to inspection, full ROM and no clubbing, cyanosis or edema Skin Skin Narrative: Patient has no evidence of rash or abscess at this time. She has no evidence of bruising with nephrostomy tubes in good position with clean dressings and no drainage or signs of acute infection. Neuro oriented x3, CN's II-XII intact bilaterally, moves all extremities and no focal motor deficits Sensorium / Orientation: awake, alert, oriented to person, oriented to place and oriented to time Speech: speech normal Motor Exam: strength 5/5 throughout Psych affect normal Results Medical Records Data Attestation: I reviewed the patient's medical records Lab / Micro Data Attestation: I reviewed the patient's lab results. 11/05/23 19:40 11/05/23 19:40 Labs: Laboratory Results - last 24 hr 11/05/23 19:40: WBC 14.4 H, RBC 3.49 L, Hgb 9.8 L, Hct 28.9 L, MCV 82.8, MCH 28.1, MCHC 33.9, RDW Std Deviation 47.4 H, RDW Coeff of Ismael 15.8 H, Plt Count 458 H, MPV 9.2, Immature Gran % (Auto) 3.200 H, Neut % (Auto) 79.6 H, Lymph % (Auto) 7.7 L, [place] % (Auto) 8.0, Eos % (Auto) 1.0, Baso % (Auto) 0.5, Absolute Neuts (auto) 11.5 H, Absolute Lymphs (auto) 1.11, Nucleated RBC % 0, Sodium 122 L, Potassium 5.0, Chloride 93 L, Carbon Dioxide 16.0 L, Anion Gap 13, BUN 73 H, Creatinine 2.88 H, Estim Creat Clear Calc 17.42, Est GFR (MDRD) Af Amer 21 L, Est GFR (MDRD) Non-Af 17 L, BUN/Creatinine Ratio 25.3 H, Glucose 119 H, Calcium 9.6 11/05/23 20:40: Magnesium 2.0 11/05/23 20:54: Urine Color Yellow, Urine Clarity Cloudy, Urine pH 6.0, Ur Specific [place] 1.020, Urine Protein 500 H, Urine Glucose (UA) Normal, Urine Ketones Negative, Urine Occult Blood 250 H, Urine Nitrite Negative, Urine Bilirubin Negative, Urine Urobilinogen Normal, Ur Leukocyte Esterase 500 H Imaging Radiology Impression Chest X-Ray 11/05/23 20:00 IMPRESSION: Right basilar atelectasis, otherwise no acute cardiac pulmonary disease. Left-sided chest port as described. Electronically Signed: Radha Chavez MD at 21:04 EST , Lumbar Spine X-Ray 11/05/23 20:00 IMPRESSION: Multilevel degenerative disease as described with no acute fracture or subluxation. Electronically Signed: Radha Chavez MD at 21:05 EST , Assessment & Plan Assessment/Plan (1) Acute hyponatremia: (2) Acute UTI: (3) Acute kidney injury: (4) Adenocarcinoma of cecum: (5) Generalized weakness: (6) Fall at home: QUALIFIERS: Encounter type: initial encounter Qualified Code(s): W19.XXXA - Unspecified fall, initial encounter; Y92.009 - Unspecified place in unspecified non-institutional (private) residence as the place of occurrence of the external cause PLAN: Plan 1. Acute Hyponatremia of 122 mmol/L present on admission after recently modified diet (baseline sodium 140 mmol/L past admission) - Admit to PCU. Continue NS IVF and then recheck BMP in the AM to ensure a gradual improvement of 8-10 mmol/L per 24 hours. Finally, we will consult nephrology to see this patient on-rounds in the AM for further recommendations with help appreciated in advance. 2. UA positive for Acute Cystitis; without hematuria with leukocytosis of 14.4 present on admission with recent blood/urine cultures positive for E. faecium complicating #1 - Restart IV Linezolid and add IV Zosyn and then await culture and sensitivity data. Give Tylenol prn pain or fever. 3. Persistent MAJO; on CKD; stage III with persistently elevated creatinine of 2.88 mg/dL present on admission compounding #1 & #2 - We will volume resuscitate and recheck BMP in the AM. 4. History of metastatic Colon Cancer (2018); s/p laparoscopic colectomy with ileostomy and PORT on chemotherapy (last tx ~1 month ago) and recent history of UTI with MAJO (October 02, 2023 with E. faecium treated with oral Linezolid); in the setting of CKD; stage III with baseline creatinine of ~1.8 mg/dL; s/p recent nephrostomy tubes placed with removal of her renal stents at the [facility] on October 15, 2023 adding to the pathology of #1 - #3 - Noted. 5. Generalized weakness with ambulatory dysfunction and mechanical fall after recent nephrostomy tube placement at the [facility] arising from #1 - #4 - PT/OT and Case Management to consult and treat on-rounds in the AM with help appreciated in advance. 6. Essential hypertension - Continue home regimen plus give prn IV Hydralazine for systolic blood pressure > 160 mmHg. 7. History of PE; on Eliquis - Resume Eliquis as previous. 8. Chronic Anemia - Stable. Check daily CBC to ensure continued stability. 9. GERD - Continue PPI as previous. 10. DVT prophylaxis - Patient is already on Eliquis for #7 which will be continued. Total time: Approximately 55 minutes. Charges/Coding Visit Charges Inpatient E&M: 97514 Init Hosp L2
[2023-11-05 21:17] LABS: Lactic Acid 1.2 mmol/L (0.4-1.9)
[2023-11-05] MEDS: 0.9% Normal Saline (1000mL) 1,000 ML 150 ML IV (21:22)
[2023-11-05 21:30] LABS: White Blood Cells >100 SEEN /hpf (0-5)
[2023-11-05 22:00] VITALS: PULSE 78; RESP 15; O2SAT 100
[2023-11-05 22:17] VITALS: BMI 23.1
[2023-11-05 22:51] LABS: Osmolality, Serum 277 mOsm/KG (280-301)
[2023-11-05 22:51] LABS: Osmolality, Urine 321 mOsm/KG
[2023-11-05] MEDS: Linezolid 600 MG 600 MG/300 ML BAG 200 MG IV (22:54)
[2023-11-05] MEDS: Cholecalciferol (Vit D3) 125 MCG CAPSULE (5,000 UNITS) PO (22:59)
[2023-11-05] MEDS: APIXABAN 5 MG TABLET PO (23:01)
[2023-11-06] MEDS: Piperacil/Tazobactam 3.375 GM in 0.9% Normal Saline (50mL MB+) 50 ML IV ×3 (00:28→19:43)
[2023-11-06] MEDS: Morphine 2 MG/ML Syringe IV ×2 (00:32→23:51)
[2023-11-06 01:53] VITALS: BMI 23.1
[2023-11-06 02:00] VITALS: BP 151/79; PULSE 75; RESP 14; TEMP 36.1; O2SAT 100
[2023-11-06] MEDS: 0.9% Normal Saline (1000mL) 1,000 ML 150 ML IV ×2 (04:03→10:39)
[2023-11-06] MEDS: Acetaminophen 325 MG Tablet 650 MG PO ×3 (06:34→21:53)
[2023-11-06 07:28] LABS: Absolute Neutrophil Count 8.2 X10^3/uL (2.0-7.7); Basophil# 0.03 X10^3/uL; Basophil% 0.3 % (0-1); Eosinophil# 0.13 X10^3/uL; Eosinophils% 1.2 % (0-5); Hematocrit 26.3 % (37-47); Lymphocyte % 8.6 % (19-41); Mean Corp Hgb Conc 34.2 g/dL (32-36); Mean Corpuscular Hgb 28.4 pg (27.0-32.0); Monocyte% 9.6 % (0-10); NRBC Flagged by Analyzer 0 % (0-5); Neutrophil # 8.18 X10^3/uL (2.7-7.7); Neutrophil % 78.4 % (47-70); Platelet Count 393 K/mm3 (150-450); RBC Distribution Width CV 15.7 % (11.6-14.6); RBC Distribution Width SD 47.6 fl (35.1-43.9); Red Blood Count 3.17 M/mm3 (4.2-5.4); White Blood Count 10.4 K/mm3 (4.4-11.0)
[2023-11-06 08:12] LABS: ALB/GLOB Ratio 0.7 RATIO (0.9-2.4); AST(SGOT) 18 U/L (15-37); Alanine Aminotransfer ALT/SGPT < 6 U/L (13-56); Albumin, Serum 3.1 g/dL (3.2-5.0); Alkaline Phosphatase 150 U/L (45-117); Anion Gap 10 (5-15); BUN 68 mg/dL (7-18); BUN/Creat Ratio 26.8 RATIO (10-20); Calcium,Total 9.2 mg/dL (8.5-10.1); Chloride 100 mmol/L (98-107); Creatinine, Serum 2.54 mg/dL (0.55-1.02); EST Glomerular Filtration Rate 20 mL/min (>60); Est Glom Filt Rate - Afr Amer 24 mL/min (>60); Estimated Creatinine Clearance 19.76 ml/min; Globulin 4.3 g/dL (2.2-4.2); Glucose 103 mg/dL (74-106); Phosphorus 4.9 mg/dL (2.5-4.9); Potassium 5.2 mmol/L (3.5-5.1); Protein, Total 7.4 g/dL (6.4-8.2); Sodium Level 126 mmol/L (136-145); Thyroid Stim Hormone (TSH) 3.05 uIU/mL (0.358-3.74)
--- NOTE | 2023-11-06 08:26 | PN.HOSP_ITS ---
Subjective Subjective Feeling better. Does self catheterize herself daily but only gets about 50 cc of urine out. Normally she is producing urine through her nephrostomy tubes which had been recently placed. Objective Data Objective Data Vital Signs: Vital Signs Temp Pulse Resp BP Pulse Ox O2 Del Method 36.1 C L 75 14 151/79 H 100 Room Air 11/06/23 02:00 11/06/23 02:00 11/06/23 02:00 11/06/23 02:00 11/06/23 02:00 11/06/23 08:21 Oxygen Delivery Method Room Air Weight: 66.9 kg Body Mass Index (BMI) 23.1 Intake & Output: Intake and Output for Last 24 Hours 11/04/23 11/05/23 11/06/23 23:59 23:59 23:59 Intake Total 1670 / 1670 Output Total 700 / 700 Balance 970 / 970 Lab / Micro Data 11/06/23 07:00 11/06/23 11:41 Labs: Laboratory Results - last 24 hr 11/05/23 19:40: WBC 14.4 H, RBC 3.49 L, Hgb 9.8 L, Hct 28.9 L, MCV 82.8, MCH 28.1, MCHC 33.9, RDW Std Deviation 47.4 H, RDW Coeff of Ismael 15.8 H, Plt Count 458 H, MPV 9.2, Immature Gran % (Auto) 3.200 H, Neut % (Auto) 79.6 H, Lymph % (Auto) 7.7 L, [place] % (Auto) 8.0, Eos % (Auto) 1.0, Baso % (Auto) 0.5, Absolute Neuts (auto) 11.5 H, Absolute Lymphs (auto) 1.11, Nucleated RBC % 0, Sodium 122 L, Potassium 5.0, Chloride 93 L, Carbon Dioxide 16.0 L, Anion Gap 13, BUN 73 H, Creatinine 2.88 H, Estim Creat Clear Calc 17.42, Est GFR (MDRD) Af Amer 21 L, Est GFR (MDRD) Non-Af 17 L, BUN/Creatinine Ratio 25.3 H, Glucose 119 H, Calcium 9.6 11/05/23 20:40: Lactic Acid 1.2, Magnesium 2.0 11/05/23 20:54: Urine Color Yellow, Urine Clarity Cloudy, Urine pH 6.0, Ur Specific [place] 1.020, Urine Protein 500 H, Urine Glucose (UA) Normal, Urine Ketones Negative, Urine Occult Blood 250 H, Urine Nitrite Negative, Urine Bilirubin Negative, Urine Urobilinogen Normal, Ur Leukocyte Esterase 500 H, Urine RBC 0 SEEN, Urine WBC >100 SEEN, Ur Squamous Epith Cells 0 SEEN, Urine Bacteria 0 SEEN, Urine Mucus 0 SEEN, Urine Osmolality 321 11/05/23 22:05: Serum Osmolality 277 L 11/06/23 07:00: WBC 10.4, RBC 3.17 L, Hgb 9.0 L, Hct 26.3 L, MCV 83.0, MCH 28.4, MCHC 34.2, RDW Std Deviation 47.6 H, RDW Coeff of Ismael 15.7 H, Plt Count 393, MPV 9.0, Immature Gran % (Auto) 1.900 H, Neut % (Auto) 78.4 H, Lymph % (Auto) 8.6 L, [place] % (Auto) 9.6, Eos % (Auto) 1.2, Baso % (Auto) 0.3, Absolute Neuts (auto) 8.2 H, Absolute Lymphs (auto) 0.90, Nucleated RBC % 0, Sodium 126 L, Potassium 5.2 H, Chloride 100, Carbon Dioxide 16.0 L, Anion Gap 10, BUN 68 H, Creatinine 2.54 H, Estim Creat Clear Calc 19.76, Est GFR (MDRD) Af Amer 24 L, Est GFR (MDRD) Non-Af 20 L, BUN/Creatinine Ratio 26.8 H, Glucose 103, Calcium 9.2, Phosphorus 4.9, Magnesium 2.0, Total Bilirubin 0.30, AST 18, ALT < 6 L, Alkaline Phosphatase 150 H, Total Protein 7.4, Albumin 3.1 L, Globulin 4.3 H, Albumin/Globulin Ratio 0.7 L, TSH 3.05 Radiography Diagnostic Testing: Radiology Impression Chest X-Ray 11/05/23 20:00 IMPRESSION: Right basilar atelectasis, otherwise no acute cardiac pulmonary disease. Left-sided chest port as described. Electronically Signed: Radha Chavez MD at 21:04 EST , Lumbar Spine X-Ray 11/05/23 20:00 IMPRESSION: Multilevel degenerative disease as described with no acute fracture or subluxation. Electronically Signed: Radha Chavez MD at 21:05 EST Reading Location ID and State: [address] [place] [address] , Service support , Physical Exam Const alert and no apparent distress HEENT head/scalp atraumatic and moist oral mucous membranes Resp normal respiratory effort, no retractions, no use of accessory muscles and clear to auscultation bilaterally Cardio regular rate, regular rhythm, S1 normal heart sound and S2 normal heart sound GI normal to inspection, nondistended, normoactive bowel sounds, soft to palpation, non-tender and non-distended Neuro Sensorium / Orientation: awake and alert Psych affect normal Assessment & Plan Assessment/Plan (1) Acute hyponatremia: (2) Acute UTI: (3) Acute kidney injury: (4) Adenocarcinoma of cecum: (5) Generalized weakness: (6) Fall at home: QUALIFIERS: Encounter type: initial encounter Qualified Code(s): W19.XXXA - Unspecified fall, initial encounter; Y92.009 - Unspecified place in unspecified non-institutional (private) residence as the place of occurrence of the external cause PLAN: Plan Acute Hyponatremia * Admission 122 mmol/L * Suspect SIADH. Patient does not take thiazide diuretics. * TSH WNL * Cortisol appropriately elevated * Nephrology consulted UTI * CAUTI, though patient intermittently self catheterizes, daily. Cannot rule out component of the nephrostomy tubes being infected. * on pip/tazo * follow up UCx. CKD; stage III * with persistently elevated creatinine of 2.88 mg/dL present on admission compounding #1 & #2 - We will volume resuscitate and recheck BMP in the AM. Generalized weakness with ambulatory dysfunction and mechanical fall after recent nephrostomy tube placement at the [facility] arising from #1 - #4 - PT/OT and Case Management to consult and treat on-rounds in the AM with help appreciated in advance. Chronic conditions: * History of metastatic Colon Cancer (2018); s/p laparoscopic colectomy with ileostomy and PORT on chemotherapy (last tx ~1 month ago) * Essential hypertension - Continue home regimen plus give prn IV Hydralazine for systolic blood pressure > 160 mmHg. * History of PE; on Eliquis - Resume Eliquis as previous. * Chronic Anemia - Stable. Check daily CBC to ensure continued stability. * GERD - Continue PPI as previous. DVT prophylaxis - Patient is already on apixaban which will be continued. Charges/Coding Visit Charges Inpatient E&M: 18212 Subs Hosp L2
[2023-11-06 10:33] VITALS: BP 134/75; PULSE 76; RESP 16; TEMP 36.3; O2SAT 100
--- NOTE | 2023-11-06 10:34 | WOUNDNOTE ---
Was consulted on patient for history of ileostomy. appliance is intact at this time. patient states she had just changed the appliance the day prior to coming in. patient is typically self sufficient with the appliance. nursing aware to call if needs arise. patient has bilateral nephrostomy tubes. both draining a slightly cloudy yellow urine. will monitor as needed.
[2023-11-06] MEDS: APIXABAN 5 MG TABLET PO ×2 (10:40→19:42)
[2023-11-06] MEDS: Ascorbic Acid 500 MG Tablet 1000 MG PO ×2 (10:40→17:00)
[2023-11-06] MEDS: Loratadine 10 MG Tablet PO (10:40)
[2023-11-06] MEDS: Pantoprazole Sodium 40 MG Tablet PO (10:41)
[2023-11-06] MEDS: Zinc Sulfate 50 mg zinc (220 mg) ORAL capsule PO (10:41)
[2023-11-06] MEDS: Magnesium Chloride 64 MG Delay Rel.Tablet 128 MG PO (10:41)
[2023-11-06] MEDS: amLODIPine 5 MG Tablet PO (10:41)
[2023-11-06] MEDS: Cholecalciferol (Vit D3) 125 MCG CAPSULE (5,000 UNITS) PO (10:42)
--- NOTE | 2023-11-06 10:45 | CASEMGMT ---
BASSAM DEL VALLE Assessment: Face to Face with pt for initial transition planning/care coordination assessment. BASSAM DEL VALLE introduced self and role at [facility], pt voices understanding and consents to assessment. Pt is A&O x4 and answers all questions appropriately at this time. Pt sitting up in bed in no distress with nurse at bedside. Care providers, pharmacy, and demographics verified/updated. Admitting Dx: hyponatremia, persistent MAJO and UTI PCP:Rafi Specialists:Pato, onc; Erick, uro; Jean-Pierre nephro Preferred Pharmacy: [facility] Retail Insurance: Rosa ESTRADA Sr Supp Prescription Benefit: yes LNOK: Jocelynn Kenneth Agrawal, dtr Living Arrangements: Pt lives alone in a single story home with 4 steps to enter with a rail. Pt reports she has been struggling with bathing and dressing since last hospitalization as far as needing rest breaks in between. Pt prepares her own meals and recently has subscribed to a mail order meal services. Pt does own laundry and orders groceries and she picks up or her neighbor for her. Transportation: Pt drives self and denies concerns with transportation. DME:shower chair, handrails over toilet, walker that she uses only after hospitalization for balance. [facility] Homecare is providing supplies for her ileostomy, straight caths and nephrostomy tubes. Pt is I in straight cathing daily and changing ileostomy; [facility] nurse changes nephrostomy bags and dressings. HHC/SNF: Active with [facility] for SN and therapy, although therapy has not seen pt yet. Pt denies SNF stays. Pt states no concerns with going home at time of dc. She would like to resume [facility], she denies need for a list of other options for HHC. Pt states no further concerns/needs. CM to follow. Advised pt to ask CM if any further question/concerns/needs arise, voices understanding. Pt Goal: Home with HHC resuming Plan: Home with HHC resuming Updated BASSAM DEL VALLE.
[2023-11-06] MEDS: Linezolid 600 MG 600 MG/300 ML BAG 200 MG IV ×2 (10:47→19:37)
[2023-11-06 12:04] LABS: Anion Gap 8 (5-15); BUN 61 mg/dL (7-18); BUN/Creat Ratio 23.9 RATIO (10-20); Chloride 103 mmol/L (98-107); Creatinine, Serum 2.55 mg/dL (0.55-1.02); EST Glomerular Filtration Rate 20 mL/min (>60); Est Glom Filt Rate - Afr Amer 24 mL/min (>60); Estimated Creatinine Clearance 19.68 ml/min; Glucose 161 mg/dL (74-106); Potassium 4.3 mmol/L (3.5-5.1); Sodium Level 128 mmol/L (136-145)
--- NOTE | 2023-11-06 15:47 | CON.PCM.RE_ITS ---
Assessment & Plan Assessment/Plan (1) Acute hyponatremia: (2) Acute kidney injury: (3) Fall at home: QUALIFIERS: Encounter type: initial encounter Qualified Code(s): W19.XXXA - Unspecified fall, initial encounter; Y92.009 - Unspecified place in unspecified non-institutional (private) residence as the place of occurrence of the external cause PLAN: Plan This is a very pleasant unfortunate 73-year-old female with history of metastatic colon cancer status post laparoscopic colectomy, now status post nephrostomy tubes placed approximately 3 weeks ago at [facility] who presented to emergency room after falling at home. Lab work in the emergency room showed sodium of 122 and creatinine of 2.88mg/dL. With gentle IVF renal function improved and her creatinine is 2.55 mg/dL today. Patient has history of recurrent MAJO episodes with serum creatinine going as high as 10 mg/dL in May 2023. Patient never required any [employer]. Fortunately creatinine levels off to around 1.2 and usually with IV fluids alone renal function improved. Patient has good urine output with her nephrostomy tubes. Patient reports she had been doing self catheterizations at home and today feels bladder is full, will check bladder scan at bedside. For hyponatremia, patient has normal baseline sodium trends. Patient had been drinking >2L fluids per day. Urine sodium is ordered and pending. Serum sodium was 122 on admission and is at 128 today. Patient had been increasing and pushing her oral fluids over the last week or so. Will restrict fluids for now. Serum sodium seems to be correcting appropriately. Patient does not need any 3% saline. Patient has not had any seizures, headaches or vision changes. No new medications, no new antidepressants. Patient is not on any diuretics. Will check urine lytes. Urine osmolality was 321, serum osmolality 277. TSH was normal. Further orders forthcoming as hospitalization evolves, thank you for allowing us to participate in the care of Ms. Nam. HPI Consult Data Date of Consult: 11/06/23 HPI Narrative HPI Narrative: SANTI NAM, is a 73 F with past medical history significant for colon cancer (initially diagnosed 2016) with metastasis into the bladder requiring partial cystectomy in April 2023 who was also found to have bilateral hydronephrosis (August 2023), seen by urology and underwent cystoscopy with bilateral ureteral stent insertion in August 2023 in [place], then was admitted to [facility] in September 2023 and underwent removal of stents status post nephrostomy tubes placed who presented to the emergency room yesterday after falling at home. Nephrology consulted for MAJO and hyponatremia. Patient is known to our group from multiple consultations for MAJO when in the hospital. Patient has never required any [employer] SAL[employer]. Patient reports when she was at [facility] she was being seen by nephrology for MAJO, did not require any hemodialysis but was asked to follow renal diet at time of discharge. Patient reports that she has been limiting sodium in diet but has been pushing/increasing her fluid intake drinking over 2L fluids per day. Patient denies any new medications. Does not take NSAIDs. [facility] Medical History Acid reflux Acidosis, lactic Acute dehydration Adenocarcinoma of cecum MAJO (acute kidney injury) Anemia Anticoagulant long-term use Bacteremia due to Klebsiella pneumoniae Bilateral hydronephrosis Chronic indwelling Dennis catheter Complicated UTI (urinary tract infection) Encounter for adjustment or management of vascular access device Fever in adult Former smoker History of colon cancer History of colon cancer Kidney disease Peritoneal metastases Pulmonary embolism s/p port placement Sepsis Sinus tachycardia by electrocardiography Ureteral stent present Urinary retention UTI (urinary tract infection) Home Medications omeprazole 20 mg capsule,delayed release 40 mg PO DAILY ACID REFLUX 01/12/17 [History Last Taken 09/27/23] loperamide 2 mg capsule 2 mg PO Q6H PRN DIARRHEA 08/01/23 [History Last Taken 09/27/23] loratadine 10 mg tablet (Claritin) 10 mg PO DAILY ALLERGIES 08/01/23 [History Last Taken 09/27/23] amlodipine 5 mg tablet 5 mg PO DAILY BLOOD PRESSURE 09/11/23 [History Last Taken 09/27/23] apixaban 5 mg tablet (Eliquis) 5 mg PO BID BLOOD THINNER 09/11/23 [History Last Taken 11/05/23 09:00] magnesium 200 mg tablet 400 mg PO DAILY 11/05/23 [History Last Taken Unknown] Allergy/AdvReac Type Severity Reaction Status Date / Time No Known Allergies Allergy Verified 11/05/23 19:09 Family History Mother Hypertension Father Melanoma Brother Melanoma Aunt Breast cancer Surgical History History of appendectomy History of bowel resection History of Hx of ileostomy S/P laparoscopic colectomy s/p port placement (~12/06/18) Social History Smoking Status: Former smoker alcohol intake: current alcohol intake frequency: holidays/special occasions only substance use type: does not use caffeine: Yes what type of physical activity do you participate in: walking and weight training frequency: daily seatbelt use: always do you feel safe at home: Yes additional social history: - Arthur-Retired Patient is [employer] Narrative As in HPI and past medical history Physical Exam Narrative Alert and orient x 3, no apparent stress S1, S2, RRR Lung sounds clear anteriorly and posteriorly. No wheezes rhonchi rales noted Abdomen soft, nontender Bilateral nephrostomy tubes with clear yellow urine No edema Medical Records Data Medical Nutrition Assessment Dietitian: Malnutrition Criteria Met Start: 11/06/23 12:28 Freq: Status: Active Protocol: Document 11/06/23 12:28 RMA (Rec: 11/06/23 12:29 RMA [id number]) Nutrition Malnutrition Evidence of Malnutrition Exists Yes Malnutrition (severe): Chronic Evidenced By Suboptimal Energy Intake ( Severe),Weight Loss (Severe) Clinical Problem Chronic Disease or Condition Related Malnutrition Etiology Severe protein-calorie malnutrition in the context of acute on chronic disease related to inadequate oral intake and increased energy expenditure due to metastatic cancer Signs/Symptoms as evidenced by PO meeting less than 50% estimated nutrition needs x 1 months, unintentional weight loss~10% x 1 month, unintentional weight loss~13% x 6 months and oarl intake meeting less than 75% estimated nutrition needs x past 6-12 months Status Active Problem Recommendation Dietitian Recommendations/Changes Given signs/symptoms of malnutrition, will liberalize diet to regular/no added salt to encourage improved oral intake as tolerated. Fluid restriction as needed for hyponatremia per physician . Restrict potassium as needed. Will add 240mL ensure clear w/ breakfast and ensure compact BID w/ lunch and dinner trays. Adjust ONS as needed to help optimize oral intake and slow down weight loss. Lab / Micro Data 11/06/23 07:00 11/06/23 11:41 Labs: Laboratory Results - last 24 hr 11/05/23 19:40: WBC 14.4 H, RBC 3.49 L, Hgb 9.8 L, Hct 28.9 L, MCV 82.8, MCH 28.1, MCHC 33.9, RDW Std Deviation 47.4 H, RDW Coeff of Ismael 15.8 H, Plt Count 458 H, MPV 9.2, Immature Gran % (Auto) 3.200 H, Neut % (Auto) 79.6 H, Lymph % (A uto) 7.7 L, [place] % (Auto) 8.0, Eos % (Auto) 1.0, Baso % (Auto) 0.5, Absolute Neuts (auto) 11.5 H, Absolute Lymphs (auto) 1.11, Nucleated RBC % 0, Sodium 122 L, Potassium 5.0, Chloride 93 L, Carbon Dioxide 16.0 L, Anion Gap 13, BUN 73 H, Creatinine 2.88 H, Estim Creat Clear Calc 17.42, Est GFR (MDRD) Af Amer 21 L, E st GFR (MDRD) Non-Af 17 L, BUN/Creatinine Ratio 25.3 H, Glucose 119 H, Calcium 9.6 11/05/23 20:40: Lactic Acid 1.2, Magnesium 2.0 11/05/23 20:54: Urine Color Yellow, Urine Clarity Cloudy, Urine pH 6.0, Ur Specific [place] 1.020, Urine Protein 500 H, Urine Glucose (UA) Normal, Urine Ketones Negative, Urine Occult Blood 250 H, Urine Nitrite Negative, Urine Bilirubin Negative, Urine Urobilinogen Normal, Ur Leukocyte Esterase 500 H, Urine RBC 0 SEEN, Urine WBC >100 SEEN, Ur Squamous Epith Cells 0 SEEN, Urine Bacteria 0 SEEN, Urine Mucus 0 SEEN, Urine Osmolality 321 11/05/23 22:05: Serum Osmolality 277 L 11/06/23 07:00: WBC 10.4, RBC 3.17 L, Hgb 9.0 L, Hct 26.3 L, MCV 83.0, MCH 28.4, MCHC 34.2, RDW Std Deviation 47.6 H, RDW Coeff of Ismael 15.7 H, Plt Count 393, MPV 9.0, Immature Gran % (Auto) 1.900 H, Neut % (Auto) 78.4 H, Lymph % (Auto) 8.6 L, [place] % (Auto) 9.6, Eos % (Auto) 1.2, Baso % (Auto) 0.3, Absolute Neuts (auto) 8.2 H, Absolute Lymphs (auto) 0.90, Nucleated RBC % 0, Sodium 126 L, Potassium 5.2 H, Chloride 100, Carbon Dioxide 16.0 L, Anion Gap 10, BUN 68 H, Creatinine 2.54 H, Estim Creat Clear Calc 19.76, Est GFR (MDRD) Af Amer 24 L, Est GFR (MDRD) Non-Af 20 L, BUN/Creatinine Ratio 26.8 H, Glucose 103, Calcium 9.2, Phosphorus 4.9, Magnesium 2.0, Total Bilirubin 0.30, AST 18, ALT < 6 L, Alkaline Phosphatase 150 H, Total Protein 7.4, Albumin 3.1 L, Globulin 4.3 H, Albumin/Globulin Ratio 0.7 L, TSH 3.05, Cortisol 27.80 H 11/06/23 11:41: Sodium 128 L, Potassium 4.3, Chloride 103, Carbon Dioxide 17.0 L , Anion Gap 8, BUN 61 H, Creatinine 2.55 H, Estim Creat Clear Calc 19.68, Est GF R (MDRD) Af Amer 24 L, Est GFR (MDRD) Non-Af 20 L, BUN/Creatinine Ratio 23.9 H, Glucose 161 H, Calcium 9.0 Micro: Microbiology 11/05/23 20:54 Urine, Clean Catch Urine Culture - Preliminary 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 Left-sided chest port as described. Electronically Signed: Radha Chavez MD at 21:04 EST , Lumbar Spine X-Ray 11/05/23 20:00 IMPRESSION: Multilevel degenerative disease as described with no acute fracture or subluxation. Electronically Signed: Radha Chavez MD at 21:05 EST ,
[2023-11-06 17:04] VITALS: BP 134/69; PULSE 77; RESP 16; TEMP 36.4; O2SAT 100
[2023-11-06 18:20] LABS: Urine Chloride 15 mmol/L (Not Establ.); Urine Sodium 23 mmol/L (Not Establ.)
[2023-11-06] MEDS: 0.9% Normal Saline (1000mL) 1,000 ML 75 ML IV (20:53)
[2023-11-06 23:04] VITALS: BP 115/69; PULSE 76; RESP 14; TEMP 36.4; O2SAT 100
[2023-11-07] VITALS (8 sets, daily range): BP systolic 117–135; BP diastolic 66–72; PULSE 72–81; RESP 14–18; TEMP 36.1–36.4; O2SAT 95–100; BMI 23.5
[2023-11-07] MEDS: Acetaminophen 325 MG Tablet 650 MG PO ×3 (04:32→16:56)
--- NOTE | 2023-11-07 07:28 | NS ---
Changed ensure clear from 8 oz to 4 oz at breakfast d/t fluid restriction.
[2023-11-07 07:37] LABS: Albumin, Serum 2.8 g/dL (3.2-5.0); BUN 54 mg/dL (7-18); BUN/Creat Ratio 20.3 RATIO (10-20); Calcium,Total 9.4 mg/dL (8.5-10.1); Chloride 105 mmol/L (98-107); Creatinine, Serum 2.66 mg/dL (0.55-1.02); EST Glomerular Filtration Rate 19 mL/min (>60); Est Glom Filt Rate - Afr Amer 23 mL/min (>60); Estimated Creatinine Clearance 18.86 ml/min; Glucose 104 mg/dL (74-106); Phosphorus 4.2 mg/dL (2.5-4.9); Potassium 5.1 mmol/L (3.5-5.1); Sodium Level 133 mmol/L (136-145)
[2023-11-07] MEDS: Linezolid 600 MG 600 MG/300 ML BAG 200 MG IV (08:50)
--- NOTE | 2023-11-07 09:17 | PCM.PN.HOSP ---
Subjective Subjective Feeling better. Was straight cathed for 750 cc of urine Objective Data Objective Data Vital Signs: Vital Signs Temp Pulse Resp BP Pulse Ox O2 Del Method 36.4 C L 77 16 134/69 H 100 Room Air 11/07/23 08:37 11/07/23 08:37 11/07/23 08:37 11/07/23 08:37 11/07/23 08:37 11/07/23 08:37 Oxygen Delivery Method Room Air Weight: 67.993 kg Body Mass Index (BMI) 23.5 Intake & Output: Intake and Output for Last 24 Hours 11/05/23 11/06/23 11/07/23 23:59 23:59 23:59 Intake Total 4790.0 / 4790.0 50 / 50 Output Total 3600 / 3600 275 / 275 Balance 1190.0 / 1190.0 -225 / -225 Medical Nutrition Assessment Dietitian: Malnutrition Criteria Met Start: 11/06/23 12:28 Freq: Status: Active Protocol: Document 11/06/23 12:28 RMA (Rec: 11/06/23 12:29 RMA [id number]) Nutrition Malnutrition Evidence of Malnutrition Exists Yes Malnutrition (severe): Chronic Evidenced By Suboptimal Energy Intake ( Severe),Weight Loss (Severe) Clinical Problem Chronic Disease or Condition Related Malnutrition Etiology Severe protein-calorie malnutrition in the context of acute on chronic disease related to inadequate oral intake and increased energy expenditure due to metastatic cancer Signs/Symptoms as evidenced by PO meeting less than 50% estimated nutrition needs x 1 months, unintentional weight loss~10% x 1 month, unintentional weight loss~13% x 6 months and oarl intake meeting less than 75% estimated nutrition needs x past 6-12 months Status Active Problem Recommendation Dietitian Recommendations/Changes Given signs/symptoms of malnutrition, will liberalize diet to regular/no added salt to encourage improved oral intake as tolerated. Fluid restriction as needed for hyponatremia per physician . Restrict potassium as needed. Will add 240mL ensure clear w/ breakfast and ensure compact BID w/ lunch and dinner trays. Adjust ONS as needed to help optimize oral intake and slow down weight loss. Lab / Micro Data 11/06/23 07:00 11/07/23 07:00 Labs: Laboratory Results - last 24 hr 11/06/23 11:41: Sodium 128 L, Potassium 4.3, Chloride 103, Carbon Dioxide 17.0 L, Anion Gap 8, BUN 61 H, Creatinine 2.55 H, Estim Creat Clear Calc 19.68, Est GFR (MDRD) Af Amer 24 L, Est GFR (MDRD) Non-Af 20 L, BUN/Creatinine Ratio 23.9 H, Glucose 161 H, Calcium 9.0 11/06/23 18:04: Ur Random Sodium Cancelled 11/06/23 18:04: Ur Random Sodium 23, Urine Potassium 15.0, Urine Chloride 15 11/07/23 07:00: Sodium 133 L, Potassium 5.1, Chloride 105, Carbon Dioxide 16.0 L, BUN 54 H, Creatinine 2.66 H, Estim Creat Clear Calc 18.86, Est GFR (MDRD) Af Amer 23 L, Est GFR (MDRD) Non-Af 19 L, BUN/Creatinine Ratio 20.3 H, Glucose 104, Calcium 9.4, Phosphorus 4.2, Albumin 2.8 L Micro: Microbiology 11/05/23 20:54 Urine, Clean Catch Urine Culture - Final Enterobacter cloacae complex Physical Exam Const alert and no apparent distress HEENT head/scalp atraumatic Resp normal respiratory effort, no retractions, no use of accessory muscles and clear to auscultation bilaterally Cardio regular rate, regular rhythm, S1 normal heart sound and S2 normal heart sound GI normal to inspection, nondistended, normoactive bowel sounds, soft to palpation, non-tender and non-distended Neuro Sensorium / Orientation: awake and alert Assessment & Plan Assessment/Plan (1) Acute hyponatremia: (2) Acute UTI: (3) Acute kidney injury: (4) Adenocarcinoma of cecum: (5) Generalized weakness: (6) Fall at home: QUALIFIERS: Encounter type: initial encounter Qualified Code(s): W19.XXXA - Unspecified fall, initial encounter; Y92.009 - Unspecified place in unspecified non-institutional (private) residence as the place of occurrence of the external cause PLAN: Plan Acute Hyponatremia Admission 122 mmol/L Suspect SIADH. Patient does not take thiazide diuretics. TSH WNL Cortisol appropriately elevated Fluid restrict 1.5 L/day. UTI CAUTI, though patient intermittently self catheterizes, daily. Cannot rule out component of the nephrostomy tubes being infected. on pip/tazo UCx shows Enterobacter cloacae sensitive to cipro, levofloxacin, imipenem, nitrofurantoin, godfrey, TMP/SMX. This is a different organism as other cultures have shown K. pneumoniae, Enterococcus faecium. Change abx to ciprofloxacin. With nephrostomy tubes, will treat her for total of 2 weeks. CKD; stage III with persistently elevated creatinine of 2.88 mg/dL present on admission compounding #1 & #2 - We will volume resuscitate and recheck BMP in the AM. Ultrasound showed bilateral nephrostomy tubes and no evidence of hydronephrosis. Generalized weakness with ambulatory dysfunction and mechanical fall after recent nephrostomy tube placement at the [facility] arising from #1 - #4 - PT/OT and Case Management to consult and treat on-rounds in the AM with help appreciated in advance. Chronic conditions: History of metastatic Colon Cancer (2018); s/p laparoscopic colectomy with ileostomy and PORT on chemotherapy (last tx ~1 month ago) Essential hypertension - Continue home regimen plus give prn IV Hydralazine for systolic blood pressure > 160 mmHg. History of PE; on Eliquis - Resume Eliquis as previous. Chronic Anemia - Stable. Check daily CBC to ensure continued stability. GERD - Continue PPI as previous. DVT prophylaxis - Patient is already on apixaban which will be continued.
[2023-11-07] MEDS: Pantoprazole Sodium 40 MG Tablet PO (10:14)
[2023-11-07] MEDS: Cholecalciferol (Vit D3) 125 MCG CAPSULE (5,000 UNITS) PO (10:14)
[2023-11-07] MEDS: Ascorbic Acid 500 MG Tablet 1000 MG PO (10:15)
[2023-11-07] MEDS: amLODIPine 5 MG Tablet PO (10:16)
[2023-11-07] MEDS: Loratadine 10 MG Tablet PO (10:16)
[2023-11-07] MEDS: Magnesium Chloride 64 MG Delay Rel.Tablet 128 MG PO (10:16)
[2023-11-07] MEDS: APIXABAN 5 MG TABLET PO (10:16)
[2023-11-07] MEDS: Zinc Sulfate 50 mg zinc (220 mg) ORAL capsule PO (10:17)
[2023-11-07] MEDS: Ciprofloxacin 400 MG/200 ML BAG 200 MG IV (10:55)
--- NOTE | 2023-11-07 11:03 | CASEMGMT ---
Discharge Planning Resumption of HH referral sent via [facility] to [facility]. Kathleen Shin, Discharge Planning Asst.
[2023-11-07] MEDS: 0.9% Normal Saline (1000mL) 1,000 ML 75 ML IV (11:05)
--- NOTE | 2023-11-07 11:48 | US_ITS ---
STUDY: RENAL ULTRASOUND - COMPLETE REASON FOR EXAM: Female, 73 years old. MAJO TECHNIQUE: Ultrasound evaluation of the kidneys was performed with real-time and static dugan-scale imaging. COMPARISON: Comparison is made with prior study dated April 08, 2024. FINDINGS: RIGHT KIDNEY: Normal location of the right kidney, which is normal in size. The right kidney measures 9.6 cm x 4.8 cm x 4.2 cm. There is a normal cortex of the right kidney. The renal cortex measures 1.5 cm. There is no right renal mass or cyst. There are no right renal calculi. There is no right hydronephrosis. Right-sided nephrostomy tube is seen. DISTAL RIGHT URETER: There is non-visualization of the distal right ureter. There is no demonstrated right ureterovesical junction calculus. There is no demonstrated right ureteral jet. LEFT KIDNEY: Normal location of the left kidney, which is normal in size. The left kidney measures 10.9 cm x 4.4 cm x 5.1 cm. There is a normal cortex of the left kidney. The renal cortex measures 1.2 cm. There is no left renal mass or cyst. There are no left renal calculi. There is no left hydronephrosis. DISTAL LEFT URETER: There is non-visualization of the distal left ureter. There is no demonstrated left ureterovesical junction calculus. There is no demonstrated left ureteral jet. A left-sided nephrostomy catheter is seen. BLADDER: The distended urinary bladder has a volume of 31 ml. There is a normal wall thickness of the distended urinary bladder. There is no demonstrated mass within the urinary bladder. There are no demonstrated bladder calculi. US/Kidney and Bladder IMPRESSION: Bilateral nephrostomy tubes. No evidence of hydronephrosis. Electronically Signed: Doron Doyle MD at 13:52 EST ,
--- NOTE | 2023-11-07 11:55 | PCM.PN.REN ---
Subjective Subjective Sitting up in bed. Reports feeling better today. Patient had bladder scan last evening with around 700 mL urine with straight cath. Denies any abdominal tenderness today. Objective Data Objective Data Vital Signs: Vital Signs Temp Pulse Resp BP Pulse Ox O2 Del Method 97.2 F L 81 16 132/71 H 100 Room Air 11/07/23 10:07 11/07/23 10:07 11/07/23 10:07 11/07/23 10:07 11/07/23 10:07 11/07/23 10:07 Oxygen Delivery Method Room Air Weight: 67.993 kg Body Mass Index (BMI) 23.5 Intake & Output: Intake and Output for Last 24 Hours 11/05/23 11/06/23 11/07/23 23:59 23:59 23:59 Intake Total 4790.0 / 4790.0 1710 / 1710 Output Total 3600 / 3600 1100 / 1100 Balance 1190.0 / 1190.0 610 / 610 Medical Nutrition Assessment Dietitian: Malnutrition Criteria Met Start: 11/06/23 12:28 Freq: Status: Active Protocol: Document 11/06/23 12:28 RMA (Rec: 11/06/23 12:29 RMA [id number]) Nutrition Malnutrition Evidence of Malnutrition Exists Yes Malnutrition (severe): Chronic Evidenced By Suboptimal Energy Intake ( Severe),Weight Loss (Severe) Clinical Problem Chronic Disease or Condition Related Malnutrition Etiology Severe protein-calorie malnutrition in the context of acute on chronic disease related to inadequate oral intake and increased energy expenditure due to metastatic cancer Signs/Symptoms as evidenced by PO meeting less than 50% estimated nutrition needs x 1 months, unintentional weight loss~10% x 1 month, unintentional weight loss~13% x 6 months and oarl intake meeting less than 75% estimated nutrition needs x past 6-12 months Status Active Problem Recommendation Dietitian Recommendations/Changes Given signs/symptoms of malnutrition, will liberalize diet to regular/no added salt to encourage improved oral intake as tolerated. Fluid restriction as needed for hyponatremia per physician . Restrict potassium as needed. Will add 240mL ensure clear w/ breakfast and ensure compact BID w/ lunch and dinner trays. Adjust ONS as needed to help optimize oral intake and slow down weight loss. Lab / Micro Data 11/06/23 07:00 11/07/23 07:00 Labs: Laboratory Results - last 24 hr 11/06/23 11:41: Sodium 128 L, Potassium 4.3, Chloride 103, Carbon Dioxide 17.0 L, Anion Gap 8, BUN 61 H, Creatinine 2.55 H, Estim Creat Clear Calc 19.68, Est GFR (MDRD) Af Amer 24 L, Est GFR (MDRD) Non-Af 20 L, BUN/Creatinine Ratio 23.9 H, Glucose 161 H, Calcium 9.0 11/06/23 18:04: Ur Random Sodium Cancelled 11/06/23 18:04: Ur Random Sodium 23, Urine Potassium 15.0, Urine Chloride 15 11/07/23 07:00: Sodium 133 L, Potassium 5.1, Chloride 105, Carbon Dioxide 16.0 L, BUN 54 H, Creatinine 2.66 H, Estim Creat Clear Calc 18.86, Est GFR (MDRD) Af Amer 23 L, Est GFR (MDRD) Non-Af 19 L, BUN/Creatinine Ratio 20.3 H, Glucose 104, Calcium 9.4, Phosphorus 4.2, Albumin 2.8 L Micro: Microbiology 11/05/23 20:54 Urine, Clean Catch Urine Culture - Final Enterobacter cloacae complex Physical Exam Narrative Alert and orient x 3, no apparent stress S1, S2, RRR Lung sounds clear anteriorly and posteriorly. No wheezes, rhonchi, rales noted Abdomen soft, nontender Bilateral nephrostomy tubes with clear yellow urine. More urine in left neph tube than right No edema Assessment & Plan Assessment/Plan (1) Acute hyponatremia: (2) Acute kidney injury: (3) Fall at home: QUALIFIERS: Encounter type: initial encounter Qualified Code(s): W19.XXXA - Unspecified fall, initial encounter; Y92.009 - Unspecified place in unspecified non-institutional (private) residence as the place of occurrence of the external cause PLAN: Plan This is a very pleasant unfortunate 73-year-old female with history of metastatic colon cancer status post laparoscopic colectomy, now status post nephrostomy tubes placed approximately 3 weeks ago at [facility] who presented to emergency room after falling at home. Lab work in the emergency room showed sodium of 122 and creatinine of 2.88mg/dL. With gentle IVF renal function improved and her creatinine is 2.55 mg/dL. -MAJO on probable CKD. Baseline SCr unknown at this time. 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 Creatinine leveled off to around 1.26 July 2023. Patient had MAJO mid-to-late August 2023 and again in September 2022 to present time. When she was at [facility] at discharge serum creatinine was 2.3 mg/dL. For this admission creatinine 2.88 on November 05 and today creatinine is 2.66 mg/dL. Patient has good urine output with her nephrostomy tubes, L>R. Patient had been doing self catheterizations at home. bladder scan yesterday showed volume ~700, straight cath was for ~700ml urine yesterday. Will check Renal US today - Acute hyponatremia, patient has normal baseline sodium trends. Patient had been drinking >2L fluids per day. Urine sodium was 23 after patient had been on IVF for almost 24hrs. Serum sodium was 122 --> 128-->133 today. Urine osmolality was 321, serum osmolality 277. TSH was normal. She is now on FR in hospital and reviewed with patient appropriate amount fluid per day once home. Patient has not had any seizures, headaches or vision changes. No new medications, no new antidepressants. Patient is not on any diuretics. - UTI: on cipro. Cx Enterobacter cloacae - discussed discharge plans with Dr. Hunt, if no acute findings with Renal US ok for discharge when cleared by primary and will make follow up appointment for patient.
--- NOTE | 2023-11-07 15:45 | DS.PCM_ITS ---
Providers Date of Admission: 11/05/23 Primary Care Physician: Dr. Adrián Mckee MD Consultations 11/05/23 22:18 Consult: Nephrology Routine Consulting Provider: Florentino Tafoya Reason for Consult: Persistent MAJO after nephrostomy tubes placed at [facility] EMERGENT Consult: No MD Notified: Yes Date Notified: 11/06/23 Time Notified: 07:54 Method of Notification: Answering Service 11/06/23 08:00 Consult: Onc/Wound/hand hardener Routine Comment: Reason for Consult:: ileostomy/urostomy Reason For Visit: HYPONATREMIA, PERSISTENT MAJO AND UTI. Diagnosis Discharge Diagnosis (1) Acute hyponatremia: Status: Acute Code(s): E87.1 - Hypo-osmolality and hyponatremia (2) Acute UTI: Status: Acute Code(s): N39.0 - Urinary tract infection, site not specified (3) Acute kidney injury: Status: Acute Code(s): N17.9 - Acute kidney failure, unspecified (4) Adenocarcinoma of cecum: Status: Resolved Code(s): C18.0 - Malignant neoplasm of cecum (5) Generalized weakness: Status: Acute Code(s): R53.1 - Weakness (6) Fall at home: Status: Acute Code(s): W19.XXXA - Unspecified fall, initial encounter; Y92.009 - Unspecified place in unspecified non-institutional (private) residence as the place of occurrence of the external cause Qualifiers: Encounter type: initial encounter Qualified Code(s): W19.XXXA - Unspecified fall, initial encounter; Y92.009 - Unspecified place in unspecified non-institutional (private) residence as the place of occurrence of the external cause Plan Acute Hyponatremia * Admission 122 mmol/L * Suspect SIADH. Patient does not take thiazide diuretics. * TSH WNL * Cortisol appropriately elevated * Fluid restrict 1.5 L/day. UTI * CAUTI, though patient intermittently self catheterizes, daily. Cannot rule out component of the nephrostomy tubes being infected. * on pip/tazo * UCx shows Enterobacter cloacae sensitive to cipro, levofloxacin, imipenem, nitrofurantoin, godfrey, TMP/SMX. This is a different organism as other cultures have shown K. pneumoniae, Enterococcus faecium. * Change abx to ciprofloxacin. With nephrostomy tubes, will treat her for total of 2 weeks. CKD; stage III * with persistently elevated creatinine of 2.88 mg/dL present on admission compounding #1 & #2 - We will volume resuscitate and recheck BMP in the AM. * Ultrasound showed bilateral nephrostomy tubes and no evidence of hydronephrosis. Generalized weakness with ambulatory dysfunction and mechanical fall after recent nephrostomy tube placement at the [facility] arising from #1 - #4 - PT/OT and Case Management to consult and treat on-rounds in the AM with help appreciated in advance. Chronic conditions: * History of metastatic Colon Cancer (2018); s/p laparoscopic colectomy with ileostomy and PORT on chemotherapy (last tx ~1 month ago) * Essential hypertension - Continue home regimen plus give prn IV Hydralazine for systolic blood pressure > 160 mmHg. * History of PE; on Eliquis - Resume Eliquis as previous. * Chronic Anemia - Stable. Check daily CBC to ensure continued stability. * GERD - Continue PPI as previous. DVT prophylaxis - Patient is already on apixaban which will be continued. Medications at Discharge Home Medications omeprazole 20 mg capsule,delayed release 40 mg PO DAILY ACID REFLUX 01/12/17 loperamide 2 mg capsule 2 mg PO Q6H PRN DIARRHEA 08/01/23 loratadine 10 mg tablet (Claritin) 10 mg PO DAILY ALLERGIES 08/01/23 amlodipine 5 mg tablet 5 mg PO DAILY BLOOD PRESSURE 09/11/23 apixaban 5 mg tablet (Eliquis) 5 mg PO BID BLOOD THINNER 09/11/23 magnesium 200 mg tablet 400 mg PO DAILY 11/05/23 ciprofloxacin HCl 500 mg tablet 500 mg PO DAILY #12 tabs 11/07/23 Hospital Course Operations None Procedures None Summary of Care Provided Minutes Spent on Discharge: 35 Hospital Course: Patient presents with a fall. Sodium was 122 and also had evidence of urinary tract infection. Sodium did improve to 133. Patient's workup showed normal cortisol and TSH. So this is concerning the patient may have SIADH. Patient was seen by nephrology as well. Patient will be advised to continue with a fluid restricted diet of 1.5 L of fluid per day. Addition patient did have a urinary tract infection patient does self catheterize intermittently so this would be a catheter associated urinary tract infection though complicating this the patient does have recent nephrostomy tubes. Urine culture showed Enterobacter cloque complex. This organism is different than what she has had before but unfortunately it was very sensitive. Patient will be discharged with a course of ciprofloxacin. Given her chronic kidney disease, patient did have an ultrasound that showed nephrostomy tubes present but no evidence of hydronephrosis. Patient will follow-up with her medical staff services coordinator as well as her urologist as outpatient. Medical Records Data Medical Nutrition Assessment Dietitian: Malnutrition Criteria Met Start: 11/06/23 12:28 Freq: Status: Active Protocol: Document 11/06/23 12:28 RMA (Rec: 11/06/23 12:29 RMA [id number]) Nutrition Malnutrition Evidence of Malnutrition Exists Yes Malnutrition (severe): Chronic Evidenced By Suboptimal Energy Intake ( Severe),Weight Loss (Severe) Clinical Problem Chronic Disease or Condition Related Malnutrition Etiology Severe protein-calorie malnutrition in the context of acute on chronic disease related to inadequate oral intake and increased energy expenditure due to metastatic cancer Signs/Symptoms as evidenced by PO meeting less than 50% estimated nutrition needs x 1 months, unintentional weight loss~10% x 1 month, unintentional weight loss~13% x 6 months and oarl intake meeting less than 75% estimated nutrition needs x past 6-12 months Status Active Problem Recommendation Dietitian Recommendations/Changes Given signs/symptoms of malnutrition, will liberalize diet to regular/no added salt to encourage improved oral intake as tolerated. Fluid restriction as needed for hyponatremia per physician . Restrict potassium as needed. Will add 240mL ensure clear w/ breakfast and ensure compact BID w/ lunch and dinner trays. Adjust ONS as needed to help optimize oral intake and slow down weight loss. Weight / BMI Weight Weight: 67.993 kg Body Mass Index (BMI) 23.5 ABG / Lab / Microbiology Data 11/06/23 07:00 11/07/23 07:00 Laboratory: Laboratory Results - last 24 hr 11/06/23 18:04: Ur Random Sodium Cancelled 11/06/23 18:04: Ur Random Sodium 23, Urine Potassium 15.0, Urine Chloride 15 11/07/23 07:00: Sodium 133 L, Potassium 5.1, Chloride 105, Carbon Dioxide 16.0 L , BUN 54 H, Creatinine 2.66 H, Estim Creat Clear Calc 18.86, Est GFR (MDRD) Af Amer 23 L, Est GFR (MDRD) Non-Af 19 L, BUN/Creatinine Ratio 20.3 H, Glucose 104, Calcium 9.4, Phosphorus 4.2, Albumin 2.8 L Microbiology: Microbiology 11/05/23 20:54 Urine, Clean Catch Urine Culture - Final Enterobacter cloacae complex Radiography Diagnostic Testing: Radiology Impression Renal Ultrasound 11/07/23 11:48 IMPRESSION: Bilateral nephrostomy tubes. No evidence of hydronephrosis. Electronically Signed: Doron Doyle MD at 13:52 EST , D/C Instructions Discharge Diet: No restrictions Meaningful Use Info Meaningful Use Diagnoses (Choose all that apply): None applicable Discharge Plan Admission Admit Date/Time: 11/05/23 21:52 Primary Reason for Your Visit: Hyponatremia. Urinary tract infection Attending Provider: Adrián Hunt Primary Care Provider: Adrián Mckee Consulting Providers: Kyle Ferguson; Florentino Tafoya Instructions Additional Instructions / Restrictions: You had low sodium, known as hyponatremia, concerned this may be due to; SIADH. This is a benign condition but you do need to restrict her fluid intake. It is recommended that you limit your fluid intake to 1.5 L (about 8 cups) of fluid maximum per day. He also had a urinary tract infection which is a different organism that you have had before. You will be on a course of antibiotics to address that. Please follow-up with nephrology as outpatient as well as urology for further monitoring of your nephrostomy tubes. Discharge Orders/Prescriptions Prescriptions: New ciprofloxacin HCl 500 mg tablet 500 mg PO DAILY Qty: 12 0RF Continued omeprazole 20 MG capsule 40 mg PO DAILY magnesium 200 mg tablet 400 mg PO DAILY loperamide 2 mg capsule 2 mg PO Q6H PRN (Reason: DIARRHEA ) loratadine [Claritin] 10 mg tablet 10 mg PO DAILY Eliquis 5 mg tablet 5 mg PO BID amlodipine 5 mg tablet 5 mg PO DAILY Rx Instructions: Hold for SBP less than 130 mmHg Referrals / Follow Up: Adrián Mckee MD [Primary Care Provider] - Within 2 Weeks Disposition Disposition (needs filled in before D/C Order can be placed): Home Health Service Charges/Coding Visit Charges Inpatient E&M: 67066 Disch Hosp >30min
--- NOTE | 2023-11-07 16:42 | PHA.DC_ITS ---
Pharmacy [facility] has performed discharge medication reconciliation and counseling for this patient. 1. CIPROFLOXACIN 500MG PO DAILY X 12 DAYS The patient's discharge medication list was reviewed for discrepancies and discrepancies were resolved. The patient was counseled on the following discharge medications and changes in medications for homegoing were reviewed. The Reason for Use, instructions for use, and potential side effects were reviewed for all new medications. The patient's questions regarding all of their medications were answered. The patient was able to verbally demonstrate an understanding of their discharge medications. Medications at Discharge Home Medications omeprazole 20 mg capsule,delayed release 40 mg PO DAILY ACID REFLUX 01/12/17 loperamide 2 mg capsule 2 mg PO Q6H PRN DIARRHEA 08/01/23 loratadine 10 mg tablet (Claritin) 10 mg PO DAILY ALLERGIES 08/01/23 amlodipine 5 mg tablet 5 mg PO DAILY BLOOD PRESSURE 09/11/23 apixaban 5 mg tablet (Eliquis) 5 mg PO BID BLOOD THINNER 09/11/23 magnesium 200 mg tablet 400 mg PO DAILY supplement 11/05/23 ciprofloxacin HCl 500 mg tablet 500 mg PO DAILY #12 tabs 11/07/23
[2023-11-07] MEDS: 0.9 % NaCl (Sterile) Posiflush 10 mL IV (16:56)
--- NOTE | 2023-11-08 10:26 | CASEMGMT ---
Discharge Planning Discharge summary sent via [facility] to [facility]. Kathleen Shin, Discharge Planning Asst.
== END 2023-11-07 17:55 | disposition home health service (06) | DRG 643 ==
LOC: ED 21:37 → PCU 21:53
PROVIDERS: Nurse Practitioner Adult Health; Admitting Provider Internal Medicine; Emergency Provider Emergency Medicine; PCP Family Medicine
DX: E22.2 Syndrome of inappropriate secretion of antidiuretic hormone (principal); E43 Unspecified severe protein-calorie malnutrition; N17.9 Acute kidney failure, unspecified; C18.0 Malignant neoplasm of cecum; N39.0 Urinary tract infection, site not specified; D64.9 Anemia, unspecified; I12.9 Hypertensive chronic kidney disease with stage 1 through stage 4 chronic kidney disease, or unspecified chronic kidney disease; N18.30 Chronic kidney disease, stage 3 unspecified; Z93.2 Ileostomy status; K21.9 Gastro-esophageal reflux disease without esophagitis; W19.XXXA Unspecified fall, initial encounter; Z87.891 Personal history of nicotine dependence; Z79.01 Long term (current) use of anticoagulants; Z80.3 Family history of malignant neoplasm of breast; Z80.8 Family history of malignant neoplasm of other organs or systems; Z86.711 Personal history of pulmonary embolism; Y92.009 Unspecified place in unspecified non-institutional (private) residence as the place of occurrence of the external cause; Z68.23 Body mass index [BMI] 23.0-23.9, adult
CPT/HCPCS: 36415; 36591; 71046; 72100; 76770; 80048; 80053; 80069; 81001; 82436; 82533; 83605; 83735; 83930; 83935; 84100; 84133; 84300; 84443; 85025; 87077; 87086; 87088; 87186; 94668; 97116; 97162; 97166; 99285; J2020; J7030; A4216; J0744

== ENCOUNTER 2024-01-03 21:53 | Inpatient (IN) | payer MEDICARE, OTHER, SELFPAY ==
[2024-01-03 21:56] VITALS: BP 139/79; PULSE 104; RESP 18; TEMP 37.3; O2SAT 97; BMI 23.9
[2024-01-03 21:58] VITALS: TEMP 37.9
--- NOTE | 2024-01-03 22:07 | EX.ED.DYSGE1 ---
HPI History of Present Illness Chief Complaint: Fever Informant: patient Onset/Context/Timing Onset: Today Context: Gradual Onset Timing: Continuous Quality: Cramping Location: Abdomen Worsened by: Nothing Relieved by: Nothing Narrative Narrative: Patient presents with low-grade fever and possible urinary tract infection. Patient states this has been getting worse throughout the day. Patient states she has cramping in her abdomen. Patient states it has been constant. Patient states nothing makes it better and nothing makes it worse. Patient has bilateral nephrostomy tubes. Patient has a history of colon cancer and is currently on chemotherapy. Patient states her temperature at home was 100.9. Patient states she took Tylenol prior to arrival. Patient admits to some nausea and vomiting. Patient denies any chest pain or shortness of breath. Patient admits to some pain in her lower back. 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 Peritoneal metastases Pulmonary embolism s/p port placement Sepsis Sinus tachycardia by electrocardiography Ureteral stent present Urinary retention UTI (urinary tract infection) Home Medications omeprazole 20 mg capsule,delayed release 40 mg PO DAILY ACID REFLUX 01/12/17 [History Last Taken 09/27/23] loperamide 2 mg capsule 2 mg PO Q6H PRN DIARRHEA 08/01/23 [History Last Taken 09/27/23] loratadine 10 mg tablet (Claritin) 10 mg PO DAILY ALLERGIES 08/01/23 [History Last Taken 09/27/23] amlodipine 5 mg tablet 5 mg PO DAILY BLOOD PRESSURE 09/11/23 [History Last Taken 09/27/23] apixaban 5 mg tablet (Eliquis) 5 mg PO BID BLOOD THINNER 09/11/23 [History Last Taken 11/05/23 09:00] magnesium 200 mg tablet 400 mg PO DAILY supplement 11/05/23 [History Last Taken Unknown] trifluridine 20 mg-tipiracil 8.19 mg tablet (Lonsurf) 1 tab PO BID 01/03/24 [History Last Taken Unknown] Allergy/AdvReac Type Severity Reaction Status Date / Time No Known Allergies Allergy Verified 01/03/24 21:55 Family History Mother Hypertension Father Melanoma Brother Melanoma Aunt Breast cancer Surgical History History of appendectomy History of bowel resection History of Hx of ileostomy S/P colectomy S/P laparoscopic colectomy s/p port placement (~12/06/18) Social History Smoking Status: Former smoker alcohol intake: current alcohol intake frequency: holidays/special occasions only substance use type: does not use caffeine: Yes what type of physical activity do you participate in: walking and weight training frequency: daily seatbelt use: always do you feel safe at home: Yes additional social history: - Arthur-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[employer] [facility] ED Constitutional Constitutional ED: Reports fever(s); Denies chills Eyes Eyes: Denies blurry vision or change in vision ENT ENT ED: Denies rhinorrhea or sore throat Cardiovascular Cardiovascular: Denies chest pain or palpitations Respiratory/Chest Respiratory/Chest: Denies cough or dyspnea Gastrointestinal Gastrointestinal: Reports abdominal pain, nausea and vomiting Genitourinary Genitourinary ED: Denies dysuria or hematuria Musculoskeletal Musculoskeletal: Reports back pain; Denies neck pain Integumentary Denies abscess or rash Neurologic Neurologic: Denies headache(s) or weakness Allergic/Immunologic Allergic/Immunologic ED: Denies mouth swelling or urticaria EXAM Physical Exam Const Vital Signs: 01/03/24 21:56 01/03/24 22:27 01/03/24 22:28 Temperature 99.2 F H 99.2 F H Temperature Source Temporal Oral Pulse Rate 104 H Respiratory Rate 18 Respiratory Pattern Normal Blood Pressure 139/79 H Blood Pressure Mean 99 Pulse Ox 97 Oxygen Delivery Method Room Air 01/04/24 00:00 Temperature 98.6 F Temperature Source Oral Pulse Rate 99 Respiratory Rate 16 Respiratory Pattern Blood Pressure 139/75 H Blood Pressure Mean 96 Pulse Ox 99 Oxygen Delivery Method Room Air Positive well nourished and well developed General Appearance ED: well developed and NAD HEENT Reports moist mucous membranes Neck supple and no JVD Resp normal respiratory effort and clear to auscultation bilaterally Cardio regular rhythm Rate: tachycardic GI non-tender and non-distended Palpation: soft Extremity Extremity Narrative: There is trace edema bilaterally. There is no calf tenderness. General Extremety ED: Yes edema; Negative for tenderness General Extremity: edema Neuro oriented x3, CN's II-XII intact bilaterally and no sensory deficits noted Motor Exam: strength 5/5 throughout Psych mental status grossly normal MDM MDM MDM Narrative Medical decision making narrative: Differential diagnosis includes neutropenic fever, sepsis, urinary tract infection, pneumonia, electrolyte abnormality, dehydration, and viral illness. CMP will be obtained to assess for leukocytosis and anemia. Basic metabolic profile will be obtained to assess for electrolyte abnormality and renal function. Serum lactate will be obtained to assess for sepsis. Urinalysis will be obtained to assess for urinary tract infection. Blood cultures will be obtained to assess for sepsis. Urine culture will be obtained to assess for urinary tract infection. COVID-19, influenza, and RSV PCR will be obtained to assess for viral illness. Lab Data Attestation: I reviewed the patient's lab results. Lab results narrative: CBC was reviewed. There is a mild leukocytosis of 13.7. There is a mild anemia with a hemoglobin of 8.9 and hematocrit 28.4. Platelets were normal. Basic metabolic profile was reviewed. BUN was slightly elevated at 28 and creatinine was 2.37. These are consistent with previous results. The serum lactate was reviewed and was elevated at 2.8. COVID-19 PCR was reviewed and was negative. Influenza PCR was reviewed and was negative for influenza A and influenza B. RSV PCR was reviewed and was negative. Labs: Laboratory Results - last 24 hr 01/03/24 23:09 WBC 13.7 H RBC 3.08 L Hgb 8.9 L Hct 28.4 L MCV 92.2 MCH 28.9 MCHC 31.3 L RDW Std Deviation 54.1 H RDW Coeff of Imsael 16.3 H Plt Count 295 MPV 8.9 Immature Gran % (Auto) 1.100 H Neut % (Auto) 93.1 H Lymph % (Auto) 2.4 L [place] % (Auto) 3.3 Eos % (Auto) 0.0 Baso % (Auto) 0.1 Absolute Neuts (auto) 12.7 H Absolute Lymphs (auto) 0.33 L Nucleated RBC % 0 Sodium 137 Potassium 4.7 Chloride 110 H Carbon Dioxide 23.0 Anion Gap 4 L BUN 28 H Creatinine 2.37 H Estim Creat Clear Calc 21.17 Est GFR (MDRD) Af Amer 26 L Est GFR (MDRD) Non-Af 21 L BUN/Creatinine Ratio 11.8 Glucose 151 H Lactic Acid 2.8 H* Calcium 8.7 Radiography Diagnostic Testing: Clinical Impression(s) from Imaging Studies Chest X-Ray 01/03/24 23:33 IMPRESSION: Multiple bilateral lung nodules the largest measures approximately 1.3 cm suggesting metastatic lesions. Electronically Signed: Romina Mares MD at 23:48 EDT , PA and lateral chest x-ray was obtained. There are 2 views. On my independent interpretation, lung grady show multiple bilateral lung nodules suggesting metastatic lesions. There is normal cardiac silhouette. Bony thorax is normal. There is no acute process noted. Radiologist also interpreted the x-ray and agrees. Treatment and Re-Evaluation :: Patient was given IV fluids and ibuprofen. Care of the patient was turned over the oncoming physician pending urinalysis results. Discharge Plan Triage Chief Complaint: Fever Other Complaint: Complaint ED Provider: Adrián Morelos Dx/Rx/DC Orders Clinical Impression: Colon cancer, Acute febrile illness Prescriptions: No Action omeprazole 20 MG capsule 40 mg PO DAILY magnesium 200 mg tablet 400 mg PO DAILY loperamide 2 mg capsule 2 mg PO Q6H PRN (Reason: DIARRHEA ) loratadine [Claritin] 10 mg tablet 10 mg PO DAILY Eliquis 5 mg tablet 5 mg PO BID amlodipine 5 mg tablet 5 mg PO DAILY Rx Instructions: Hold for SBP less than 130 mmHg Lonsurf 20-8.19 mg tablet 1 tab PO BID Primary Care Provider: Adrián Mckee Referrals: Adrián Mckee MD [Primary Care Provider] -
[2024-01-03 22:27] VITALS: TEMP 37.3
[2024-01-03] MEDS: 0.9% Normal Saline (1000mL) 1,000 ML 1000 ML IV (23:10)
[2024-01-03 23:23] LABS: Absolute Lymphocyte Count 0.33 X10^3/uL (0.83-4.51); Absolute Neutrophil Count 12.7 X10^3/uL (2.0-7.7); Basophil# 0.02 X10^3/uL; Basophil% 0.1 % (0-1); Hematocrit 28.4 % (37-47); Hemoglobin 8.9 g/dL (12.0-15.0); Lymphocyte # 0.33 X10^3/ul (0.83-4.51); Lymphocyte % 2.4 % (19-41); Mean Corp Hgb Conc 31.3 g/dL (32-36); Mean Corpuscular Hgb 28.9 pg (27.0-32.0); Mean Corpuscular Volume 92.2 fL (81-99); Mean Platelet Vol. 8.9 fl (6.2-12.0); Monocyte# 0.45 X10^3/uL; Monocyte% 3.3 % (0-10); NRBC Flagged by Analyzer 0 % (0-5); Neutrophil # 12.72 X10^3/uL (2.7-7.7); Neutrophil % 93.1 % (47-70); POSITIVE DIFFERENTIAL YES; Platelet Count 295 K/mm3 (150-450); RBC Distribution Width CV 16.3 % (11.6-14.6); RBC Distribution Width SD 54.1 fl (35.1-43.9); Red Blood Count 3.08 M/mm3 (4.2-5.4); White Blood Count 13.7 K/mm3 (4.4-11.0)
--- NOTE | 2024-01-03 23:33 | RAD_ITS ---
INDICATION: Fever EXAMINATION/TECHNIQUE: X-RAY - XR Chest 2 Views COMPARISON: No relevant prior comparison study available FINDINGS: LINES/DEVICES: By report on the left LUNGS: Multiple bilateral lung nodules the largest measures approximately 1.3 cm suggesting metastatic lesions. Subsegmental atelectasis noted in the lung bases. MEDIASTINUM AND CARDIOVASCULAR STRUCTURES: Cardiac silhouette not enlarged. Central airways and mediastinal contour are unremarkable. BONES AND SOFT TISSUES: Unremarkable. RAD/Chest PA and Lateral IMPRESSION: Multiple bilateral lung nodules the largest measures approximately 1.3 cm suggesting metastatic lesions. Electronically Signed: Romina Mares MD at 23:48 EDT ,
[2024-01-03 23:46] LABS: Anion Gap 4 (5-15); BUN 28 mg/dL (7-18); BUN/Creat Ratio 11.8 RATIO (10-20); Calcium,Total 8.7 mg/dL (8.5-10.1); Chloride 110 mmol/L (98-107); Creatinine, Serum 2.37 mg/dL (0.55-1.02); EST Glomerular Filtration Rate 21 mL/min (>60); Est Glom Filt Rate - Afr Amer 26 mL/min (>60); Estimated Creatinine Clearance 21.17 ml/min; Glucose 151 mg/dL (74-106); Potassium 4.7 mmol/L (3.5-5.1); Sodium Level 137 mmol/L (136-145)
[2024-01-04] VITALS (10 sets, daily range): BP systolic 104–141; BP diastolic 60–75; PULSE 93–104; RESP 15–20; TEMP 37–38.7; O2SAT 94–99; BMI 22.4
[2024-01-04 00:14] LABS: Lactic Acid 2.8 mmol/L (0.4-1.9)
[2024-01-04] MEDS: Ondansetron 4 MG/2 ML Vial IV (02:11)
[2024-01-04] MEDS: Acetaminophen 500 MG Tablet 1000 MG PO (02:34)
[2024-01-04 02:45] LABS: Bacteria 0 SEEN /hpf (None Seen); Mucous, Urine 0 SEEN /hpf (<or=2+)
[2024-01-04 02:50] LABS: Color, Urine Yellow (Yellow); Glucose, Dipstick Normal (Normal); Ketone-Dipstick Negative (Negative); Leukocyte Esterase-Dipstick 100 /ul (Negative); Nitrite-Dipstick Positive (Negative); Occult Blood-Urine 50 /ul (Negative); Protein-Dipstick 30 mg/dl (Negative); Specific Gravity, Urine 1.015 (1.002-1.030); Urine Bilirubin Dipstick Negative (Negative); Urine Clarity Clear (Clear); Urine Urobilinogen Normal (Normal)
[2024-01-04 03:01] LABS: Red Blood Cells-Urine 10-25 SEEN /hpf (0-5); Squamous Epithelial Cells - UA 5-10 SEEN /hpf (5-10); White Blood Cells 5-10 SEEN /hpf (0-5)
[2024-01-04 03:18] LABS: Reflex Lactate? Y
--- NOTE | 2024-01-04 03:21 | PCM.HP.STD ---
HPI - General General Date of Admission: 01/04/24 Date of Service: 01/04/24 Chief Complaint: Fever and abdominal pain. HPI Narrative SANTI NAM, is a 73 F with a past medical history of essential hypertension, history of PE; on Eliquis, Chronic Anemia, GERD, history of metastatic adenocarcinoma of the Colon (2018); s/p laparoscopic right colectomy with ileostomy and PORT on chemotherapy, history of UTI with MAJO (October 02, 2023 treated with oral Linezolid); in the setting of CKD; stage III with baseline creatinine of ~1.8 mg/dL; s/p recent nephrostomy tubes placed with removal of her renal stents at the [facility] on October 15, 2023 along with recent admission here from November 05, 2023 to November 07, 2023 for treatment of UTI; with cultures positive for Enterobacter cloacae complex and acute hyponatremia of 122 mmol/L present on admission who presents to [facility] ER complaining of fever and abdominal pain. Ms. Nam reports her symptoms began approximately five days prior to admission with constant, cramping abdominal pain with nothing making the pain better or worse and fever up to 100.9 ?F for which she was started on oral Cipro and as needed Tylenol without subsequent improvement. She also admits to nausea with bilious emesis with the pain in her low back. She denies chest pain, cough, shortness of breath, diarrhea or constipation. in the ER she was noted to have a urinalysis positive for acute cystitis; with microscopic hematuria with leukocytosis of 13.7; with left shift present on admission and lactic acidosis of 2.8 mmol/L present on admission consistent with suspected sepsis in the setting of failure of outpatient antibiotic treatment with Cipro and she was admitted to the general medical floor for treatment under the sepsis protocol for stay that is expected to be greater than 48 hours. 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 Pulmonary embolism s/p port placement Sepsis Sinus tachycardia by electrocardiography Ureteral stent present Urinary retention UTI (urinary tract infection) Home Medications omeprazole 20 mg capsule,delayed release 40 mg PO DAILY ACID REFLUX 01/12/17 [History Last Taken 09/27/23] loperamide 2 mg capsule 2 mg PO Q6H PRN DIARRHEA 08/01/23 [History Last Taken 09/27/23] loratadine 10 mg tablet (Claritin) 10 mg PO DAILY ALLERGIES 08/01/23 [History Last Taken 09/27/23] amlodipine 5 mg tablet 5 mg PO DAILY BLOOD PRESSURE 09/11/23 [History Last Taken 09/27/23] apixaban 5 mg tablet (Eliquis) 5 mg PO BID BLOOD THINNER 09/11/23 [History Last Taken 11/05/23 09:00] magnesium 200 mg tablet 400 mg PO DAILY supplement 11/05/23 [History Last Taken Unknown] trifluridine 20 mg-tipiracil 8.19 mg tablet (Lonsurf) 1 tab PO BID 01/03/24 [History Last Taken Unknown] Allergy/AdvReac Type Severity Reaction Status Date / Time No Known Allergies Allergy Verified 01/03/24 21:55 Family History Mother Hypertension Father Melanoma Brother Melanoma Aunt Breast cancer Surgical History (Updated 01/04/24 @ 04:53 by Bhavesh Noriega) H/O: hysterectomy History of appendectomy History of bowel resection History of Hx of ileostomy S/P colectomy S/P laparoscopic colectomy s/p port placement (~12/06/18) Social History Smoking Status: Former smoker alcohol intake: current alcohol intake frequency: holidays/special occasions only substance use type: does not use caffeine: Yes what type of physical activity do you participate in: walking and weight training frequency: daily seatbelt use: always do you feel safe at home: Yes additional social history: - 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 HENT: Denies headache, denies stuffy nose, denies sore throat EYES: Denies changes in vision or discharge from eyes. Resp: Denies cough, denies shortness of breath Cardiac: Denies chest pain, palpitations or heart racing. GI: Denies abdominal pain, denies changes in bowel, had nausea with bilious emesis as per HPI. : Denies changes in urination with dysuria or hematuria. Extremity: Denies swelling Musculoskeletal: Feels somewhat generally weak and unwell along with back pain. She denies neck pain. Neuro: Patient denies headache, paresthesias or focal neurologic weakness. Heme: Denies any bleeding or bruising Skin: Denies rashes Psychiatric: No complaints voiced related to uncontrolled depression or anxiety. Endocrine: No polyuria, polydipsia or polyphagia. The rest of the 14 point ROS was negative except for positives in HPI. Vital Signs Vital Signs Vital Signs: 01/03/24 21:56 01/03/24 22:27 01/03/24 22:28 Temperature 99.2 F H 99.2 F H Temperature Source Temporal Oral Pulse Rate 104 H Respiratory Rate 18 Respiratory Pattern Normal Blood Pressure 139/79 H Blood Pressure Mean 99 Pulse Ox 97 Oxygen Delivery Method Room Air 01/04/24 00:00 01/03/24 21:58 01/04/24 02:00 Temperature 98.6 F 100.3 F H 100.3 F H Temperature Source Oral Oral Oral Pulse Rate 99 Respiratory Rate 16 Respiratory Pattern Blood Pressure 139/75 H Blood Pressure Mean 96 Pulse Ox 99 Oxygen Delivery Method Room Air 01/04/24 01:58 01/04/24 02:00 Temperature 100.3 F H 101.0 F H Temperature Source Oral Temporal Pulse Rate 99 104 H Respiratory Rate 18 16 Respiratory Pattern Blood Pressure 139/75 H 141/65 H Blood Pressure Mean 96 90 Pulse Ox 99 94 Oxygen Delivery Method Room Air Room Air Weight Weight: 152 lb 14.4 oz Body Mass Index (BMI) 23.9 Physical Exam Const alert, oriented x3, no apparent distress and average body habitus General Appearance: cooperative HEENT normocephalic, head/scalp atraumatic, hearing grossly normal bilaterally and moist oral mucous membranes Eyes PERRL and EOMs intact bilaterally Neck no lymphadenopathy and supple Resp normal respiratory effort, no retractions, no use of accessory muscles and clear to auscultation bilaterally Cardio regular rate and regular rhythm GI normal to inspection, nondistended, normoactive bowel sounds, soft to palpation, non-tender and non-distended Extremity Extremity Narrative: Trace pitting edema noted in the bilateral lower extremities. Negative for tenderness. Skin Skin Narrative: Patient has no evidence of rash or jaundice at this time. Neuro oriented x3, CN's II-XII intact bilaterally, moves all extremities and no focal motor deficits Sensorium / Orientation: awake, alert, oriented to person, oriented to place and oriented to time Speech: speech normal Psych affect normal Results Medical Records Data Attestation: I reviewed the patient's medical records Lab / Micro Data Attestation: I reviewed the patient's lab results. 01/03/24 23:09 01/03/24 23:09 Labs: Laboratory Results - last 24 hr 01/03/24 23:09: WBC 13.7 H, RBC 3.08 L, Hgb 8.9 L, Hct 28.4 L, MCV 92.2, MCH 28.9, MCHC 31.3 L, RDW Std Deviation 54.1 H, RDW Coeff of Ismael 16.3 H, Plt Count 295, MPV 8.9, Immature Gran % (Auto) 1.100 H, Neut % (Auto) 93.1 H, Lymph % (Auto) 2.4 L, [place] % (Auto) 3.3, Eos % (Auto) 0.0, Baso % (Auto) 0.1, Absolute Neuts (auto) 12.7 H, Absolute Lymphs (auto) 0.33 L, Nucleated RBC % 0, Sodium 137, Potassium 4.7, Chloride 110 H, Carbon Dioxide 23.0, Anion Gap 4 L, BUN 28 H, Creatinine 2.37 H, Estim Creat Clear Calc 21.17, Est GFR (MDRD) Af Amer 26 L, Est GFR (MDRD) Non-Af 21 L, BUN/Creatinine Ratio 11.8, Glucose 151 H, Lactic Acid 2.8 H*, Calcium 8.7 01/04/24 02:37: Urine Color Yellow, Urine Clarity Clear, Urine pH 5.0, Ur Specific [place] 1.015, Urine Protein 30 H, Urine Glucose (UA) Normal, Urine Ketones Negative, Urine Occult Blood 50 H, Urine Nitrite Positive H, Urine Bilirubin Negative, Urine Urobilinogen Normal, Ur Leukocyte Esterase 100 H, Urine RBC 10-25 SEEN, Urine WBC 5-10 SEEN, Ur Squamous Epith Cells 5-10 SEEN, Urine Bacteria 0 SEEN, Urine Mucus 0 SEEN Micro: Microbiology 01/03/24 23:24 Mucosa - Nose SARS-CoV-2, Influenza & RSV (PCR) - Final Imaging Radiology Impression Chest X-Ray 01/03/24 23:33 IMPRESSION: Multiple bilateral lung nodules the largest measures approximately 1.3 cm suggesting metastatic lesions. Electronically Signed: Romina Mares MD at 23:48 EDT , Assessment & Plan Assessment/Plan (1) Acute cystitis without hematuria: (2) Sepsis: QUALIFIERS: Sepsis acute organ dysfunction status: without acute organ dysfunction Sepsis type: sepsis due to unspecified organism Qualified Code(s): A41.9 - Sepsis, unspecified organism (3) Chronic kidney disease: QUALIFIERS: Chronic kidney disease stage: stage 4 (severe) Qualified Code(s): N18.4 - Chronic kidney disease, stage 4 (severe) (4) Colon cancer: QUALIFIERS: Colon location: unspecified part of colon Qualified Code(s): C18.9 - Malignant neoplasm of colon, unspecified PLAN: Plan 1. Acute cystitis; with microscopic hematuria with leukocytosis of 13.7; with left shift present on admission and lactic acidosis of 2.8 mmol/L present on admission consistent with suspected sepsis that failed outpatient treatment with 5 days of oral Cipro - Admit to general medical floor. Continue broad-spectrum antibiotics to cover for multidrug-resistant organisms with IV Zosyn and IV Zyvox begun in the ER. Await culture and sensitivity data to narrow antibiotic spectrum. Serialize lactates to monitor trend. Give Tylenol as needed mild to moderate (level 1-5 out of 10) pain or fever. Give morphine IV as needed for severe (level 6-10 out of 10) pain. 2. Cramping abdominal pain with nausea and bilious emesis due to #1 - Resume supportive care with volume resuscitation and IV Zofran as needed for nausea and vomiting. 3. Recent admission here from November 05, 2023 to November 07, 2023 for treatment of UTI; with cultures positive for Enterobacter cloacae complex and acute hyponatremia of 122 mmol/L complicating #1 & #2 - Noted. Serum sodium 137 mg present this admission. 4. History of UTI with MAJO (October 02, 2023 treated with oral Linezolid); in the setting of CKD; stage III with baseline creatinine of ~1.8 mg/dL; s/p recent nephrostomy tubes placed with removal of her renal stents at the [facility] on October 15, 2023 setting the backdrop for #1 - #3 - Noted. Patient has personally requested urology consult this admission as she thinks one of her nephrostomy tubes may have migrated out of position with help appreciated in advance. 5. History of metastatic adenocarcinoma of the Colon (2018); s/p laparoscopic right colectomy with ileostomy and PORT on chemotherapy - Continue current therapy. 6. Essential hypertension - Hold scheduled antihypertensives until infection outlined in #1 has been neutralized. History of PE; on Eliquis, 7. Chronic Anemia - Likely due mainly to chronic kidney disease with hemoglobin of 8.9 g/dL present on admission. 8. GERD - Resume PPI. 9. History of PE on Eliquis - Resume Eliquis as previous. 10. DVT prophylaxis - Patient is already on apixaban will be continued. Total time: Approximately 55 minutes. Sepsis Attestation Sepsis Alert: Yes Sepsis Attestation: Agree w/Sepsis Date exam was performed: 01/04/24 Time exam was performed: 03:00 Possible Source of Sepsis: Genitourinary Sepsis Organ Dysfunction Criteria Present: Creatinine > 2.0 mg/dL and Lactic Acid > 2 mmol/L Fluid Resuscitation Fluid resuscitation indicated?: Yes Fluid Resuscitation ordered: 30 ml/kg fluid bolus ordered Amount of fluid ordered: 3 Sepsis Note Date exam was performed: 01/04/24 Time exam was performed: 07:00 Sepsis Attestation: Sepsis re-evaluation was performed Response to fluids: Fluid responsive hypotension Charges/Coding Visit Charges Inpatient E&M: 79289 Init Hosp L2
[2024-01-04] MEDS: Piperacil/Tazobactam 2,250 MG in 0.9% Normal Saline (50mL MB+) 50 ML 100 MG IV (03:49)
[2024-01-04] MEDS: 0.9% Normal Saline (1000mL) 1,000 ML 999 ML IV (03:50)
[2024-01-04] MEDS: 0.9% Normal Saline (1000mL) 1,000 ML 100 ML IV ×2 (05:11→16:51)
[2024-01-04] MEDS: Linezolid 600 MG 600 MG/300 ML BAG 200 MG IV (05:11)
[2024-01-04 06:02] LABS: Absolute Lymphocyte Count 0.34 X10^3/uL (0.83-4.51); Absolute Neutrophil Count 11.1 X10^3/uL (2.0-7.7); Basophil# 0.01 X10^3/uL; Basophil% 0.1 % (0-1); Hematocrit 25.5 % (37-47); Hemoglobin 8.1 g/dL (12.0-15.0); Lymphocyte # 0.34 X10^3/ul (0.83-4.51); Lymphocyte % 2.8 % (19-41); Mean Corp Hgb Conc 31.8 g/dL (32-36); Mean Corpuscular Hgb 29.1 pg (27.0-32.0); Mean Corpuscular Volume 91.7 fL (81-99); Mean Platelet Vol. 8.9 fl (6.2-12.0); Monocyte# 0.38 X10^3/uL; Monocyte% 3.2 % (0-10); NRBC Flagged by Analyzer 0.2 % (0-5); Neutrophil # 11.06 X10^3/uL (2.7-7.7); Neutrophil % 91.7 % (47-70); POSITIVE DIFFERENTIAL YES; Platelet Count 255 K/mm3 (150-450); RBC Distribution Width CV 16.2 % (11.6-14.6); RBC Distribution Width SD 54.6 fl (35.1-43.9); Red Blood Count 2.78 M/mm3 (4.2-5.4); White Blood Count 12.1 K/mm3 (4.4-11.0)
[2024-01-04 06:28] LABS: ALB/GLOB Ratio 0.8 RATIO (0.9-2.4); AST(SGOT) 16 U/L (15-37); Alanine Aminotransfer ALT/SGPT < 6 U/L (13-56); Albumin, Serum 2.5 g/dL (3.2-5.0); Alkaline Phosphatase 84 U/L (45-117); Anion Gap 6 (5-15); BUN 29 mg/dL (7-18); BUN/Creat Ratio 11.2 RATIO (10-20); Calcium,Total 8.1 mg/dL (8.5-10.1); Chloride 113 mmol/L (98-107); Creatinine, Serum 2.59 mg/dL (0.55-1.02); EST Glomerular Filtration Rate 19 mL/min (>60); Est Glom Filt Rate - Afr Amer 23 mL/min (>60); Estimated Creatinine Clearance 19.37 ml/min; Globulin 3.2 g/dL (2.2-4.2); Glucose 125 mg/dL (74-106); Potassium 4.3 mmol/L (3.5-5.1); Protein, Total 5.7 g/dL (6.4-8.2); Sodium Level 138 mmol/L (136-145)
--- NOTE | 2024-01-04 08:30 | CT_ITS ---
STUDY: CT ABDOMEN AND PELVIS WITHOUT CONTRAST REASON FOR EXAM: Female, 73 years old. Evaluate nephrostomy tube position RADIATION DOSAGE (If Supplied By Facility): CTDIvol = ( 6.27 ) mGy, DLP = ( 322.49 ) mGycm TECHNIQUE: Transaxial images were obtained from the dome of the diaphragm to the symphysis pubis without oral contrast, and without intravenous contrast. Sagittal and coronal images were reconstructed. Individualized dose optimization techniques were used for this CT. COMPARISON: Comparison is made with prior study September 11, 2023. FINDINGS: Multiple pulmonary nodules are seen in both lower lobes. Bibasilar atelectasis. The visualized portions of the heart are within normal limits. Normal liver. Normal gallbladder and extrahepatic biliary system. Borderline splenomegaly. Normal pancreas. Normal bilateral adrenal glands. Bilateral nephrostomy tubes are seen in good position. Residual bilateral hydronephrosis. Mild degree of bilateral perinephric stranding. Normal visualized stomach. End ileostomy is seen in the right lower quadrant. Postoperative changes are seen. Anastomosis seen in the region of the rectum. There is evidence of a soft tissue prominence in the presacral space. The appendix is visualized and appears normal. Normal abdominal aorta. Normal inferior vena cava. Normal retroperitoneum. Normal abdominal wall. There are degenerative changes of the visualized lumbar spine. CT/Abdomen/Pelvis without Cont IMPRESSION: Bilateral percutaneous nephrostomy tubes are in good position. Residual bilateral hydronephrosis with bilateral perinephric stranding. Pulmonary nodules are seen in the lung bases. Status post ileostomy with the surgical sutures seen in the region of the rectum. Presacral soft tissue changes. Electronically Signed: Doron Doyle MD at 10:02 EDT ,
--- NOTE | 2024-01-04 09:15 | WOUNDNOTE ---
Was asked to see patient d/t having an ileostomy. patient has been quite independent with the ostomy for many years. patient states she changed the appliance on . denies need for appliance change at this time. will monitor for needs.
[2024-01-04] MEDS: Magnesium Chloride 64 MG Delay Rel.Tablet 128 MG PO (10:50)
[2024-01-04] MEDS: Pantoprazole Sodium 40 MG Tablet PO (10:50)
[2024-01-04] MEDS: APIXABAN 5 MG TABLET PO ×2 (10:51→23:25)
[2024-01-04] MEDS: Lactobacillis Acidophilus 2 CAP PO ×2 (10:52→23:25)
--- NOTE | 2024-01-04 11:37 | PN.HOSP_ITS ---
Reason for Visit Reason for Visit: Diagnoses Sepsis, unspecified organism (01/04/24) Malignant neoplasm of colon, unspecified (01/04/24) Chronic kidney disease, stage 4 (severe) (01/04/24) Acute cystitis without hematuria (01/04/24) Subjective Subjective Patient was seen and examined today, I talked with urology about her care- urology initially wanted her left nephrostomy tube replaced, CT scan was done on her abdomen and it showed adequate functioning of both tubes however. Objective Data Objective Data Vital Signs: Vital Signs Temp Pulse Resp BP Pulse Ox O2 Del Method 98.6 F 93 20 H 104/60 97 Room Air 01/04/24 08:03 01/04/24 08:03 01/04/24 08:03 01/04/24 08:03 01/04/24 08:03 01/04/24 08:03 Oxygen Delivery Method Room Air Weight: 65.091 kg Body Mass Index (BMI) 22.4 Intake & Output: Intake and Output for Last 24 Hours 01/02/24 01/03/24 01/04/24 23:59 23:59 23:59 Intake Total 2362.92 / 2362.92 Balance 2362.92 / 2362.92 Medical Nutrition Assessment Dietitian: Malnutrition Criteria Met Start: 01/04/24 11:28 Freq: Status: Active Protocol: Document 01/04/24 11:29 SLA (Rec: 01/04/24 11:29 SLA Desktop) Nutrition Malnutrition Evidence of Malnutrition Exists Yes Malnutrition (severe): Chronic Evidenced By Suboptimal Energy Intake ( Severe),Weight Loss (Severe) Clinical Problem Chronic Disease or Condition Related Malnutrition Etiology related to inadequate energy intake Signs/Symptoms as evidenced by po intake meeting <50% of estimated nutritional needs and 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 Problem Recommendation Dietitian Recommendations/Changes Will liberalize diet to Regular No Added Salt with 4 oz ensure plus high protein w/ breakfast and dinner d/t signs and symptoms of malnutrition Consider appetite stimulant if po intake fails to improve Lab / Micro Data 01/04/24 05:45 01/04/24 05:45 Labs: Laboratory Results - last 24 hr 01/03/24 23:09: WBC 13.7 H, RBC 3.08 L, Hgb 8.9 L, Hct 28.4 L, MCV 92.2, MCH 28.9, MCHC 31.3 L, RDW Std Deviation 54.1 H, RDW Coeff of Ismael 16.3 H, Plt Count 295, MPV 8.9, Immature Gran % (Auto) 1.100 H, Neut % (Auto) 93.1 H, Lymph % (Auto) 2.4 L, Winn % (Auto) 3.3, Eos % (Auto) 0.0, Baso % (Auto) 0.1, Absolute Neuts (auto) 12.7 H, Absolute Lymphs (auto) 0.33 L, Nucleated RBC % 0, Sodium 137, Potassium 4.7, Chloride 110 H, Carbon Dioxide 23.0, Anion Gap 4 L, BUN 28 H , Creatinine 2.37 H, Estim Creat Clear Calc 21.17, Est GFR (MDRD) Af Amer 26 L, Est GFR (MDRD) Non-Af 21 L, BUN/Creatinine Ratio 11.8, Glucose 151 H, Lactic Acid 2.8 H*, Calcium 8.7 01/04/24 02:37: Urine Color Yellow, Urine Clarity Clear, Urine pH 5.0, Ur Specific [place] 1.015, Urine Protein 30 H, Urine Glucose (UA) Normal, Urine Ketones Negative, Urine Occult Blood 50 H, Urine Nitrite Positive H, Urine Bilirubin Negative, Urine Urobilinogen Normal, Ur Leukocyte Esterase 100 H, Urine RBC 10-25 SEEN, Urine WBC 5-10 SEEN, Ur Squamous Epith Cells 5-10 SEEN, Urine Bacteria 0 SEEN, Urine Mucus 0 SEEN 01/04/24 03:35: Lactic Acid 2.0 01/04/24 05:45: WBC 12.1 H, RBC 2.78 L, Hgb 8.1 L, Hct 25.5 L, MCV 91.7, MCH 29.1, MCHC 31.8 L, RDW Std Deviation 54.6 H, RDW Coeff of Ismael 16.2 H, Plt Count 255, MPV 8.9, Immature Gran % (Auto) 2.200 H, Neut % (Auto) 91.7 H, Lymph % (Auto) 2.8 L, Winn % (Auto) 3.2, Eos % (Auto) 0.0, Baso % (Auto) 0.1, Absolute Neuts (auto) 11.1 H, Absolute Lymphs (auto) 0.34 L, Nucleated RBC % 0.2, Sodium 138, Potassium 4.3, Chloride 113 H, Carbon Dioxide 19.0 L, Anion Gap 6, BUN 29 H , Creatinine 2.59 H, Estim Creat Clear Calc 19.37, Est GFR (MDRD) Af Amer 23 L, Est GFR (MDRD) Non-Af 19 L, BUN/Creatinine Ratio 11.2, Glucose 125 H, Calcium 8.1 L, Total Bilirubin 1.20 H, AST 16, ALT < 6 L, Alkaline Phosphatase 84, Total Protein 5.7 L, Albumin 2.5 L, Globulin 3.2, Albumin/Globulin Ratio 0.8 L Micro: Microbiology 01/03/24 23:24 Mucosa - Nose SARS-CoV-2, Influenza & RSV (PCR) - Final Radiography Diagnostic Testing: Radiology Impression Chest X-Ray 01/03/24 23:33 IMPRESSION: Multiple bilateral lung nodules the largest measures approximately 1.3 cm suggesting metastatic lesions. Electronically Signed: Romina Mares MD at 23:48 EDT , Abdomen/Pelvis CT 01/04/24 08:30 IMPRESSION: Bilateral percutaneous nephrostomy tubes are in good position. Residual bilateral hydronephrosis with bilateral perinephric stranding. Pulmonary nodules are seen in the lung bases. Status post ileostomy with the surgical sutures seen in the region of the rectum. Presacral soft tissue changes. Electronically Signed: Doron Doyle MD at 10:02 EDT , Physical Exam Const alert, oriented x3, no apparent distress and healthy appearing General Appearance: cooperative, well kempt and well developed Orientation / Consciousness: awake, oriented to person, oriented to place and oriented to time HEENT normocephalic, head/scalp atraumatic and moist oral mucous membranes Eyes PERRL, EOMs intact bilaterally and conjunctivae normal Neck supple, no JVD, thyroid normal and no carotid bruits General: trachea midline Resp normal respiratory effort, no retractions, no use of accessory muscles and clear to auscultation bilaterally Auscultation: Negative for rales, rhonchi or wheezes Cardio regular rate, regular rhythm, S1 normal heart sound, S2 normal heart sound, no murmurs, no rub and no gallops GI normal to inspection, nondistended, normoactive bowel sounds, soft to palpation, non-tender and non-distended Extremity no clubbing, cyanosis or edema Skin no rashes or lesions noted General Skin Exam: no breakdown Neuro oriented x3, CN's II-XII intact bilaterally, moves all extremities, no focal motor deficits and no sensory deficits noted Sensorium / Orientation: awake and alert Speech: speech normal Psych affect normal Assessment & Plan Assessment/Plan (1) Acute cystitis without hematuria: PLAN: Plan 1. Severe sepsis secondary to acute cystitis-urine cultures are pending at this time, she will remain on her current antibiotics #2 acute cystitis-again culture results are pending, she will remain on Zosyn #3 essential hypertension-medications will be held at this time due to her severe sepsis, blood pressure will be monitored #4 chronic anticoagulation-patient is on Eliquis, this is due to past history of PE #5 chronic anemia-etiology unclear, patient's iron level last year was low, I wi ll repeat her iron studies Total clinical time spent by myself addressing the patient's medical issues, reviewing all of her data, and collaborating with patient's care team: 35 minutes Charges/Coding Visit Charges Inpatient E&M: 97336 Subs Hosp L2
[2024-01-04 12:07] LABS: Ferritin 305 ng/mL (8-252); Iron 8 ug/dL (50-170); Iron Binding Capacity,Total 175 ug/dL (250-450); PERCENT IRON SATURATION 4.6 % (15.0-55.0)
--- NOTE | 2024-01-04 13:30 | CASEMGMT ---
Addendum entered by Srinivas Yee 01/04/24 14:37: Message received from [facility] via [facility] that they are able to accept pt for [facility]. Original Note: BASSAM DEL VALLE Assessment: RN CM to room to meet with pt for initial transition planning/care coordination assessment. BASSAM DEL VALLE introduced self and role at [facility], pt voices understanding and consents to assessment. Pt is A&O and answers all questions appropriately at this time. Pt resting in bed in no distress with nurse at bedside. Care providers, pharmacy, and demographics verified/updated. PCP:Rafi Specialists:Pato, onc; Erick, uro; Jean-Pierre, nephro. 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 Preferred Pharmacy: [facility] @ [place] Made aware of weekend hours and that she will need to choose another pharmacy if she discharges over the weekend when [facility] retail is closed. Insurance: SEAN, Rosa Sr Supp Prescription Benefit: yes LNOK: Jocelynn Agrawal, dtr Living Arrangements: Pt lives alone in a single story home with 4 steps to enter with a rail. Pt prepares most of her own meals and often gets boxed meals that are easier to prepare. Pt does light housekeeping and hires cleaning lady once a month. Transportation: Pt drives self and denies concerns with transportation. Dtr will take her home @ [place] DME:shower chair, handrails over toilet, walker that she doesn't often use, except for after hospitalization for balance. [facility] is providing supplies for her ileostomy, straight caths and nephrostomy tubes. Pt is I in straight cathing daily and changing ileostomy; [facility] nurse changes nephrostomy bags and dressings. HHC/SNF: Pt denies SNF stays. Active with [facility] for SN only and pt would like to resume w/them. She declines wanting list of other HHC options. She declines wanting any therapy added. [facility] order placed and [facility] referral sent to [facility] via [facility]. Pt states no concerns with going home at time of dc. Pt states no further concerns/needs. Advised pt to ask CM if any further question/concerns/needs arise, voices understanding. Plan: Home with [facility] resuming for SN. Melida BSN RN CM
[2024-01-04] MEDS: Acetaminophen 325 MG Tablet 650 MG PO (14:37)
--- NOTE | 2024-01-04 16:13 | NURSING ---
Racquel Oliveros! It's Villa from Sunday's clinical! I just wanted to thank you for doing what you do best! The teaching methods you used are a great way for hands on learners like myself, plus your sense of humor kept me laughing the whole time! I also wanted to say that I appreciate you assisting me in hopefully obtaining a future job at [employer]! Hoping to see you again soon. Have a great weekend.
[2024-01-04] MEDS: Piperacil/Tazobactam 3.375 GM in 0.9% Normal Saline (50mL MB+) 50 ML IV ×2 (16:51→23:27)
--- NOTE | 2024-01-04 17:43 | CON.PCM_ITS ---
Assessment & Plan Assessment/Plan (1) UTI (urinary tract infection): (2) Sepsis: QUALIFIERS: Sepsis type: sepsis due to unspecified organism Sepsis acute organ dysfunction status: without acute organ dysfunction Qualified Code(s): A41.9 - Sepsis, unspecified organism (3) Colon cancer: QUALIFIERS: Colon location: unspecified part of colon Qualified Code(s): C18.9 - Malignant neoplasm of colon, unspecified (4) Bilateral ureteral obstruction: PLAN: Plan Continue antibiotics, await culture results Continue supportive care Straight cath bladder once daily to keep empty, if fevers continue would recomme nd continuous drainage with Dennis catheter If she does not improve with antibiotics and supportive care, I would recommend changing the percutaneous nephrostomy tubes I will have nursing record the output from her nephrostomy tubes separately and the bladder output separately HPI Consult Data Date of Consult: 01/04/24 HPI Narrative Reason for Consultation: Urosepsis, indwelling bilateral percutaneous nephrostomy tubes HPI Narrative: SANTI NAM, is a 73 F known to me with a history of metastatic colon cancer with bilateral ureteral obstruction and indwelling percutaneous nephrostomy tubes. These are usually changed regularly at the [facility]. She is due for her change on January 20. She has been having issues with recurrent urinary tract infections. She has been cathing her bladder every other day and getting about 20 cc out. At home she developed a fever with nausea and vomiting and presented to the emergency room. She is also been having significant low back pain. She is in the middle of chemotherapy. She was taken down earlier today for evaluation of the percutaneous nephrostomy tubes which were flushed and imaged with CT scan. Per interventional radiology, they were draining normally. The fact that she is only getting 20 cc out of the bladder every other day signifies that they are likely draining normally. [facility] Medical History (Updated 01/04/24 @ 17:[address] 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 Peritoneal metastases Pulmonary embolism s/p port placement Sepsis Sinus tachycardia by electrocardiography Ureteral stent present Urinary retention UTI (urinary tract infection) Home Medications omeprazole 20 mg capsule,delayed release 40 mg PO DAILY ACID REFLUX 01/12/17 [History Last Taken 09/27/23] loperamide 2 mg capsule 2 mg PO Q6H PRN DIARRHEA 08/01/23 [History Last Taken 09/27/23] loratadine 10 mg tablet (Claritin) 10 mg PO DAILY ALLERGIES 08/01/23 [History Last Taken 09/27/23] amlodipine 5 mg tablet 5 mg PO DAILY BLOOD PRESSURE 09/11/23 [History Last Taken 09/27/23] apixaban 5 mg tablet (Eliquis) 5 mg PO BID BLOOD THINNER 09/11/23 [History Last Taken 11/05/23 09:00] magnesium 200 mg tablet 400 mg PO DAILY supplement 11/05/23 [History Last Taken Unknown] trifluridine 20 mg-tipiracil 8.19 mg tablet (Lonsurf) 1 tab PO BID 01/03/24 [History Last Taken Unknown] Allergy/AdvReac Type Severity Reaction Status Date / Time No Known Allergies Allergy Verified 01/03/24 21:55 Family History Mother Hypertension Father Melanoma Brother Melanoma Aunt Breast cancer Surgical History H/O: hysterectomy History of appendectomy History of bowel resection History of Hx of ileostomy S/P colectomy S/P laparoscopic colectomy s/p port placement (~12/06/18) Social History Smoking Status: Former smoker alcohol intake: current alcohol intake frequency: holidays/special occasions only substance use type: does not use caffeine: Yes what type of physical activity do you participate in: walking and weight training frequency: daily seatbelt use: always do you feel safe at home: Yes additional social history: - [employer]-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 ROS Respiratory/Chest Respiratory/Chest: Denies change in mental status, chest congestion, dry cough or dyspnea Gastrointestinal Gastrointestinal: Reports cramping, nausea and vomiting Genitourinary Genitourinary: Reports low back pain; Denies burning urination, dysuria, flank pain or hematuria Musculoskeletal Musculoskeletal: Reports back pain Integumentary Integumentary: Reports systems reviewed and no addt'l complaints, except as documented Neurologic Neurologic: Reports systems reviewed and no addt'l complaints, except as documented Psychiatric Psychiatric: Reports systems reviewed and no addt'l complaints, except as documented Endocrine Endocrinology: Reports systems reviewed and no addt'l complaints, except as documented Hematologic/Lymphatic Hematologic/Lymphatic: Reports systems reviewed and no addt'l complaints, except as documented Allergic/Immunologic Allergic/Immunologic: Reports systems reviewed and no addt'l complaints, except as documented Physical Exam Const alert, oriented x3 and no apparent distress General Appearance: cooperative, comfortable and well kempt HEENT normocephalic, head/scalp atraumatic, hearing grossly normal bilaterally, external ears normal, external nose normal and moist oral mucous membranes Eyes General Eye: normal appearance of both eyes Neck supple General: trachea midline Chest inspection of chest normal Chest: symmetrical chest wall rise Resp normal respiratory effort, normal air movement and no retractions Cardio Rate: tachycardic GI soft to palpation Narrative: Bilateral percutaneous nephrostomy tube bags with clear yellow urine, right side more than the left in the bag. I will have nursing measure the urine output separately for each bag. Extremity normal to inspection Skin no rashes or lesions noted, skin turgor normal, no jaundice and no petechiae Neuro oriented x3 and CN's II-XII intact bilaterally Psych mental status grossly normal, thought process normal, cooperative and affect normal Medical Records Data Medical Nutrition Assessment Dietitian: Malnutrition Criteria Met Start: 01/04/24 11:28 Freq: Status: Active Protocol: Document 01/04/24 11:29 [facility] (Rec: 01/04/24 11:29 [facility] Desktop) Nutrition Malnutrition Evidence of Malnutrition Exists Yes Malnutrition (severe): Chronic Evidenced By Suboptimal Energy Intake ( Severe),Weight Loss (Severe) Clinical Problem Chronic Disease or Condition Related Malnutrition Etiology related to inadequate energy intake Signs/Symptoms as evidenced by po intake meeting <50% of estimated nutritional needs and 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 Problem Recommendation Dietitian Recommendations/Changes Will liberalize diet to Regular No Added Salt with 4 oz ensure plus high protein w/ breakfast and dinner d/t signs and symptoms of malnutrition Consider appetite stimulant if po intake fails to improve Lab / Micro Data 01/04/24 05:45 01/04/24 05:45 Labs: Laboratory Results - last 24 hr 01/03/24 23:09: WBC 13.7 H, RBC 3.08 L, Hgb 8.9 L, Hct 28.4 L, MCV 92.2, MCH 28.9, MCHC 31.3 L, RDW Std Deviation 54.1 H, RDW Coeff of Ismael 16.3 H, Plt Count 295, MPV 8.9, Immature Gran % (Auto) 1.100 H, Neut % (Auto) 93.1 H, Lymph % (Auto) 2.4 L, Dent % (Auto) 3.3, Eos % (Auto) 0.0, Baso % (Auto) 0.1, Absolute Neuts (auto) 12.7 H, Absolute Lymphs (auto) 0.33 L, Nucleated RBC % 0, Sodium 137, Potassium 4.7, Chloride 110 H, Carbon Dioxide 23.0, Anion Gap 4 L, BUN 28 H , Creatinine 2.37 H, Estim Creat Clear Calc 21.17, Est GFR (MDRD) Af Amer 26 L, Est GFR (MDRD) Non-Af 21 L, BUN/Creatinine Ratio 11.8, Glucose 151 H, Lactic Acid 2.8 H*, Calcium 8.7 01/04/24 02:37: Urine Color Yellow, Urine Clarity Clear, Urine pH 5.0, Ur Specific [place] 1.015, Urine Protein 30 H, Urine Glucose (UA) Normal, Urine Ketones Negative, Urine Occult Blood 50 H, Urine Nitrite Positive H, Urine Bilirubin Negative, Urine Urobilinogen Normal, Ur Leukocyte Esterase 100 H, Urine RBC 10-25 SEEN, Urine WBC 5-10 SEEN, Ur Squamous Epith Cells 5-10 SEEN, Urine Bacteria 0 SEEN, Urine Mucus 0 SEEN 01/04/24 03:35: Lactic Acid 2.0 01/04/24 05:45: WBC 12.1 H, RBC 2.78 L, Hgb 8.1 L, Hct 25.5 L, MCV 91.7, MCH 29.1, MCHC 31.8 L, RDW Std Deviation 54.6 H, RDW Coeff of Ismael 16.2 H, Plt Count 255, MPV 8.9, Immature Gran % (Auto) 2.200 H, Neut % (Auto) 91.7 H, Lymph % (Auto) 2.8 L, Dent % (Auto) 3.2, Eos % (Auto) 0.0, Baso % (Auto) 0.1, Absolute Neuts (auto) 11.1 H, Absolute Lymphs (auto) 0.34 L, Nucleated RBC % 0.2, Sodium 138, Potassium 4.3, Chloride 113 H, Carbon Dioxide 19.0 L, Anion Gap 6, BUN 29 H , Creatinine 2.59 H, Estim Creat Clear Calc 19.37, Est GFR (MDRD) Af Amer 23 L, Est GFR (MDRD) Non-Af 19 L, BUN/Creatinine Ratio 11.2, Glucose 125 H, Calcium 8.1 L, Iron 8 L, TIBC 175 L, Iron Saturation 4.6 L, Ferritin 305 H, Total Bilirubin 1.20 H, AST 16, ALT < 6 L, Alkaline Phosphatase 84, Total Protein 5.7 L, Albumin 2.5 L, Globulin 3.2, Albumin/Globulin Ratio 0.8 L Micro: Microbiology 01/04/24 00:10 Blood Culture (Wb) - Chest Blood Culture - Preliminary 01/03/24 23:24 Mucosa - Nose SARS-CoV-2, Influenza & RSV (PCR) - Final Imaging Radiology Impression Chest X-Ray 01/03/24 23:33 IMPRESSION: Multiple bilateral lung nodules the largest measures approximately 1.3 cm suggesting metastatic lesions. Electronically Signed: Romina Mares MD at 23:48 EDT , Abdomen/Pelvis CT 01/04/24 08:30 IMPRESSION: Bilateral percutaneous nephrostomy tubes are in good position. Residual bilateral hydronephrosis with bilateral perinephric stranding. Pulmonary nodules are seen in the lung bases. Status post ileostomy with the surgical sutures seen in the region of the rectum. Presacral soft tissue changes. Electronically Signed: Doron Doyle MD at 10:02 EDT ,
[2024-01-05] VITALS (14 sets, daily range): BP systolic 104–126; BP diastolic 61–72; PULSE 85–127; RESP 15–18; TEMP 36.8–39.3; O2SAT 93–95
[2024-01-05] MEDS: 0.9% Normal Saline (1000mL) 1,000 ML 100 ML IV ×3 (03:26→20:21)
[2024-01-05] MEDS: Acetaminophen 325 MG Tablet 650 MG PO ×3 (03:35→23:08)
[2024-01-05 05:50] LABS: Hematocrit 22.3 % (37-47); Mean Corp Hgb Conc 31.4 g/dL (32-36); Mean Corpuscular Hgb 29.2 pg (27.0-32.0); Mean Corpuscular Volume 92.9 fL (81-99); Mean Platelet Vol. 9.3 fl (6.2-12.0); POSITIVE COUNT YES; POSITIVE DIFFERENTIAL YES; POSITIVE MORPHOLOGY YES; Platelet Count 187 K/mm3 (150-450); RBC Distribution Width CV 16.6 % (11.6-14.6); RBC Distribution Width SD 55.5 fl (35.1-43.9); White Blood Count 8.8 K/mm3 (4.4-11.0)
[2024-01-05 05:54] LABS: Differential Indicated MANUAL DIFF
[2024-01-05] MEDS: Loperamide 2 MG Capsule PO ×2 (06:17→18:54)
[2024-01-05 06:30] LABS: ALB/GLOB Ratio 0.6 RATIO (0.9-2.4); AST(SGOT) 14 U/L (15-37); Alanine Aminotransfer ALT/SGPT 7 U/L (13-56); Alkaline Phosphatase 78 U/L (45-117); Anion Gap 7 (5-15); BUN 37 mg/dL (7-18); BUN/Creat Ratio 9.7 RATIO (10-20); Calcium,Total 8.1 mg/dL (8.5-10.1); Chloride 114 mmol/L (98-107); EST Glomerular Filtration Rate 12 mL/min (>60); Est Glom Filt Rate - Afr Amer 15 mL/min (>60); Globulin 3.3 g/dL (2.2-4.2); Glucose 105 mg/dL (74-106); Potassium 4.6 mmol/L (3.5-5.1); Protein, Total 5.3 g/dL (6.4-8.2); Sodium Level 137 mmol/L (136-145)
[2024-01-05 06:33] LABS: Lymphocyte 1 % (19-41); Monocyte 3 % (0-10); Neutrophil-Band 19 % (0-5); Neutrophil-Segmented 77 % (47-70); Total Cells Counted 100 (MANUAL DIFF)
[2024-01-05 06:35] LABS: Absolute Lymphocyte Count 0.09 X10^3/uL (0.83-4.51); Absolute Neutrophil Count 8.4 X10^3/uL (2.0-7.7)
[2024-01-05 06:36] LABS: Differential Comment SCANNED
[2024-01-05] MEDS: Loratadine 10 MG Tablet PO (08:23)
[2024-01-05] MEDS: Lactobacillis Acidophilus 2 CAP PO ×2 (08:23→20:28)
[2024-01-05] MEDS: Pantoprazole Sodium 40 MG Tablet PO (08:24)
[2024-01-05] MEDS: APIXABAN 5 MG TABLET PO ×2 (08:24→20:28)
[2024-01-05] MEDS: Magnesium Chloride 64 MG Delay Rel.Tablet 128 MG PO (08:24)
[2024-01-05] MEDS: Piperacil/Tazobactam 3.375 GM in 0.9% Normal Saline (50mL MB+) 50 ML IV ×2 (10:07→20:29)
--- NOTE | 2024-01-05 10:40 | PN.URO_ITS ---
Subjective Subjective Awake in bed, biggest complaint today is fatigue. She reports sleeping almost all day yesterday. Objective Data Objective Data Vital Signs: Vital Signs Temp Pulse Resp BP Pulse Ox O2 Del Method 98.5 F 90 16 118/64 94 Room Air 01/05/24 09:04 01/05/24 09:04 01/05/24 09:04 01/05/24 09:04 01/05/24 09:04 01/05/24 09:04 Oxygen Delivery Method Room Air Weight: 65.091 kg Body Mass Index (BMI) 22.4 Intake & Output: Intake and Output for Last 24 Hours 01/03/24 01/04/24 01/05/24 23:59 23:59 23:59 Intake Total 3411.25 / 3511.25 1150 / 1150 Output Total 480 / 480 755 / 755 Balance 2931.25 / 3031.25 395 / 395 Medical Nutrition Assessment Dietitian: Malnutrition Criteria Met Start: 01/04/24 11:28 Freq: Status: Active Protocol: Document 01/04/24 11:29 [facility] (Rec: 01/04/24 11:29 [facility] Desktop) Nutrition Malnutrition Evidence of Malnutrition Exists Yes Malnutrition (severe): Chronic Evidenced By Suboptimal Energy Intake ( Severe),Weight Loss (Severe) Clinical Problem Chronic Disease or Condition Related Malnutrition Etiology related to inadequate energy intake Signs/Symptoms as evidenced by po intake meeting <50% of estimated nutritional needs and 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 Problem Recommendation Dietitian Recommendations/Changes Will liberalize diet to Regular No Added Salt with 4 oz ensure plus high protein w/ breakfast and dinner d/t signs and symptoms of malnutrition Consider appetite stimulant if po intake fails to improve Lab / Micro Data 01/05/24 05:20 01/05/24 05:20 Labs: Laboratory Results - last 24 hr 01/04/24 05:45: Iron 8 L, TIBC 175 L, Iron Saturation 4.6 L, Ferritin 305 H 01/05/24 05:20: WBC 8.8, RBC 2.40 L, Hgb 7.0 L, Hct 22.3 L, MCV 92.9, MCH 29.2, MCHC 31.4 L, RDW Std Deviation 55.5 H, RDW Coeff of Ismael 16.6 H, Plt Count 187, MPV 9.3, Neut % (Auto) Not Reportable, Absolute Neuts (auto) 8.4 H, Absolute Lymphs (auto) 0.09 L, Total Counted 100, Neutrophils % (Manual) 77 H, Band Neutrophils % 19 H, Lymphocytes % (Manual) 1 L, Monocytes % (Manual) 3, Differential Comment SCANNED, Sodium 137, Potassium 4.6, Chloride 114 H, Carbon Dioxide 16.0 L, Anion Gap 7, BUN 37 H, Creatinine 3.80 H, Estim Creat Clear Calc 13.20, Est GFR (MDRD) Af Amer 15 L, Est GFR (MDRD) Non-Af 12 L, BUN/Creatinine Ratio 9.7 L, Glucose 105, Calcium 8.1 L, Total Bilirubin 1.20 H, AST 14 L, ALT 7 L, Alkaline Phosphatase 78, Total Protein 5.3 L, Albumin 2.0 L, Globulin 3.3, Albumin/Globulin Ratio 0.6 L 01/05/24 10:15: Crossmatch See Detail Micro: Microbiology 01/03/24 23:09 Blood Culture (Wb) - Port Blood Culture - 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 Assessment & Plan Assessment/Plan (1) Bilateral ureteral obstruction: (2) Acute cystitis without hematuria: (3) Sepsis: QUALIFIERS: Sepsis type: sepsis due to unspecified organism Sepsis acute organ dysfunction status: without acute organ dysfunction Qualified Code(s): A41.9 - Sepsis, unspecified organism (4) Chronic kidney disease: QUALIFIERS: Chronic kidney disease stage: stage 4 (severe) Qualified Code(s): N18.4 - Chronic kidney disease, stage 4 (severe) PLAN: Plan Continue supportive care, fluids and transfusion as needed Continue antibiotics and await culture results Flush percutaneous nephrostomy tubes with 10 cc of normal saline daily Agree with repeat imaging on Sunday if creatinine continues to increase with consultation of nephrology
--- NOTE | 2024-01-05 12:06 | PCM.PN.HOSP ---
Reason for Visit Reason for Visit: Diagnoses Sepsis, unspecified organism (01/04/24) Malignant neoplasm of colon, unspecified (01/04/24) Crossing vessel and stricture of ureter without hydronephrosis (01/04/24) Chronic kidney disease, stage 4 (severe) (01/04/24) Acute cystitis without hematuria (01/04/24) Urinary tract infection, site not specified (01/04/24) Subjective Subjective Patient was seen and examined today, her labs today showed a low hemoglobin at 7, patient's creatinine is elevated at 3.8. I talked briefly with urology by phone today, Dr. Curran verified that the patient had no hematuria, since her admission she has dropped 2 g of hemoglobin. Patient denies any blood in her stool Objective Data Objective Data Vital Signs: Vital Signs Temp Pulse Resp BP Pulse Ox O2 Del Method 100.2 F H 100 16 117/70 95 Room Air 01/05/24 11:40 01/05/24 11:40 01/05/24 11:40 01/05/24 11:40 01/05/24 11:40 01/05/24 11:40 Oxygen Delivery Method Room Air Weight: 65.091 kg Body Mass Index (BMI) 22.4 Intake & Output: Intake and Output for Last 24 Hours 01/03/24 01/04/24 01/05/24 23:59 23:59 23:59 Intake Total 3411.25 / 3511.25 1300 / 1300 Output Total 480 / 480 1055 / 1055 Balance 2931.25 / 3031.25 245 / 245 Medical Nutrition Assessment Dietitian: Malnutrition Criteria Met Start: 01/04/24 11:28 Freq: Status: Active Protocol: Document 01/04/24 11:29 TEODORO (Rec: 01/04/24 11:29 TEODORO Desktop) Nutrition Malnutrition Evidence of Malnutrition Exists Yes Malnutrition (severe): Chronic Evidenced By Suboptimal Energy Intake ( Severe),Weight Loss (Severe) Clinical Problem Chronic Disease or Condition Related Malnutrition Etiology related to inadequate energy intake Signs/Symptoms as evidenced by po intake meeting <50% of estimated nutritional needs and 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 Problem Recommendation Dietitian Recommendations/Changes Will liberalize diet to Regular No Added Salt with 4 oz ensure plus high protein w/ breakfast and dinner d/t signs and symptoms of malnutrition Consider appetite stimulant if po intake fails to improve Lab / Micro Data 01/05/24 05:20 01/05/24 05:20 Labs: Laboratory Results - last 24 hr 01/04/24 05:45: Iron 8 L, TIBC 175 L, Iron Saturation 4.6 L, Ferritin 305 H 01/05/24 05:20: WBC 8.8, RBC 2.40 L, Hgb 7.0 L, Hct 22.3 L, MCV 92.9, MCH 29.2, MCHC 31.4 L, RDW Std Deviation 55.5 H, RDW Coeff of Ismael 16.6 H, Plt Count 187, MPV 9.3, Neut % (Auto) Not Reportable, Absolute Neuts (auto) 8.4 H, Absolute Lymphs (auto) 0.09 L, Total Counted 100, Neutrophils % (Manual) 77 H, Band Neutrophils % 19 H, Lymphocytes % (Manual) 1 L, Monocytes % (Manual) 3, Differential Comment SCANNED, Sodium 137, Potassium 4.6, Chloride 114 H, Carbon Dioxide 16.0 L, Anion Gap 7, BUN 37 H, Creatinine 3.80 H, Estim Creat Clear Calc 13.20, Est GFR (MDRD) Af Amer 15 L, Est GFR (MDRD) Non-Af 12 L, BUN/Creatinine Ratio 9.7 L, Glucose 105, Calcium 8.1 L, Total Bilirubin 1.20 H, AST 14 L, ALT 7 L, Alkaline Phosphatase 78, Total Protein 5.3 L, Albumin 2.0 L, Globulin 3.3, Albumin/Globulin Ratio 0.6 L 01/05/24 10:15: Blood Type B NEGATIVE, Antibody Screen NEGATIVE, Crossmatch See Detail Micro: Microbiology 01/04/24 02:37 Urine, Nephrostomy Urine 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 01/03/24 23:09 Blood Culture (Wb) - Port Blood 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 01/04/24 00:10 Blood Culture (Wb) - Chest Blood 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 01/03/24 23:24 Mucosa - Nose SARS-CoV-2, Influenza & RSV (PCR) - Final Physical Exam Narrative alert, oriented x3, no apparent distress and healthy appearing General Appearance: cooperative, well kempt and well developed Orientation / Consciousness: awake, oriented to person, oriented to place and oriented to time HEENT normocephalic, head/scalp atraumatic and moist oral mucous membranes Eyes PERRL, EOMs intact bilaterally and conjunctivae normal Neck supple, no JVD, thyroid normal and no carotid bruits General: trachea midline Resp normal respiratory effort, no retractions, no use of accessory muscles and clear to auscultation bilaterally Auscultation: Negative for rales, rhonchi or wheezes Cardio regular rate, regular rhythm, S1 normal heart sound, S2 normal heart sound, no murmurs, no rub and no gallops GI normal to inspection, nondistended, normoactive bowel sounds, soft to palpation, non-tender and non-distended Extremity no clubbing, cyanosis or edema Skin no rashes or lesions noted General Skin Exam: no breakdown Neuro oriented x3, CN's II-XII intact bilaterally, moves all extremities, no focal motor deficits and no sensory deficits noted Sensorium / Orientation: awake and alert Speech: speech normal Psych affect normal Assessment & Plan Assessment/Plan (1) Acute cystitis without hematuria: PLAN: Plan 1. Severe sepsis secondary to acute cystitis-urine cultures are pending at this time, she will remain on her current antibiotics #2 acute cystitis-again culture results are pending, she will remain on Zosyn #3 essential hypertension-medications will be held at this time due to her severe sepsis, blood pressure will be monitored #4 chronic anticoagulation-patient is on Eliquis, this is due to past history of PE #5 chronic anemia-requiring blood transfusion-I have decided to give the patient 1 unit of packed red blood cells, CBC will be rechecked tomorrow, I briefly talked with her oncologist by phone today (Dr. Whyte) and her iron studies may indicate iron deficiency anemia in addition to anemia of chronic disease. He recommended given the patient iron. Patient will receive Venofer. #6 severe chronic protein and caloric malnutrition-related to inadequate energy intake as evidenced by p.o. intake meeting less than 50% of estimated nutritional needs and 15.8% unintended weight loss x 9 months-diet was liberalized to regular no added salt with 4 ounces of Ensure plus protein with breakfast and dinner due to signs and symptoms of malnutrition #7 acute kidney injury on a backdrop of chronic kidney disease stage IV- I will continue IV fluids and recheck her BMP tomorrow Total clinical time spent by myself addressing the patient's medical issues, reviewing all of her data, and collaborating with patient's care team: 50 minutes Charges/Coding Visit Charges Inpatient E&M: 15873 Subs Hosp L3
[2024-01-05] MEDS: Sodium Ferric Gluconat/Sucrose 250 MG in 0.9% Normal Saline (250mL Bag) 250 ML 135 MG IV (14:57)
[2024-01-05] MEDS: Acetaminophen 500 MG Tablet PO (16:29)
[2024-01-05] MEDS: 0.9% Saline Lock 10 ML Syringe IV (20:27)
[2024-01-06 06:20] VITALS: BP 137/75; PULSE 90; RESP 20; TEMP 37.2; O2SAT 95
[2024-01-06 06:22] LABS: Absolute Lymphocyte Count 0.57 X10^3/uL (0.83-4.51); Absolute Neutrophil Count 5.1 X10^3/uL (2.0-7.7); Basophil# 0.01 X10^3/uL; Basophil% 0.2 % (0-1); Eosinophil# 0.08 X10^3/uL; Eosinophils% 1.3 % (0-5); Lymphocyte # 0.57 X10^3/ul (0.83-4.51); Lymphocyte % 9.3 % (19-41); Mean Corp Hgb Conc 30.8 g/dL (32-36); Mean Corpuscular Volume 94.2 fL (81-99); Mean Platelet Vol. 9.8 fl (6.2-12.0); Monocyte# 0.28 X10^3/uL; Monocyte% 4.6 % (0-10); NRBC Flagged by Analyzer 0 % (0-5); Neutrophil # 5.05 X10^3/uL (2.7-7.7); Neutrophil % 82.6 % (47-70); POSITIVE DIFFERENTIAL YES; Platelet Count 164 K/mm3 (150-450); RBC Distribution Width CV 16.5 % (11.6-14.6); RBC Distribution Width SD 56.2 fl (35.1-43.9); Red Blood Count 2.76 M/mm3 (4.2-5.4); White Blood Count 6.1 K/mm3 (4.4-11.0)
[2024-01-06] MEDS: 0.9% Normal Saline (1000mL) 1,000 ML 100 ML IV ×2 (06:31→16:00)
[2024-01-06 06:39] LABS: Anion Gap 4 (5-15); BUN 45 mg/dL (7-18); BUN/Creat Ratio 10.4 RATIO (10-20); Calcium,Total 8.6 mg/dL (8.5-10.1); Chloride 119 mmol/L (98-107); Creatinine, Serum 4.32 mg/dL (0.55-1.02); EST Glomerular Filtration Rate 11 mL/min (>60); Est Glom Filt Rate - Afr Amer 13 mL/min (>60); Estimated Creatinine Clearance 11.62 ml/min; Glucose 83 mg/dL (74-106); Potassium 5.1 mmol/L (3.5-5.1); Sodium Level 139 mmol/L (136-145)
[2024-01-06 07:18] LABS: Magnesium 1.7 mg/dL (1.6-2.6)
[2024-01-06] MEDS: Pantoprazole Sodium 40 MG Tablet PO (08:26)
[2024-01-06] MEDS: Lactobacillis Acidophilus 2 CAP PO ×2 (08:26→22:45)
[2024-01-06] MEDS: APIXABAN 5 MG TABLET PO ×2 (08:27→22:44)
[2024-01-06] MEDS: Magnesium Chloride 64 MG Delay Rel.Tablet 128 MG PO (08:27)
[2024-01-06] MEDS: Acetaminophen 325 MG Tablet 650 MG PO (08:30)
[2024-01-06 09:18] VITALS: BP 114/69; PULSE 76; RESP 16; TEMP 37.9; O2SAT 94
[2024-01-06] MEDS: Piperacil/Tazobactam 3.375 GM in 0.9% Normal Saline (50mL MB+) 50 ML IV ×2 (10:05→22:45)
[2024-01-06 11:42] VITALS: BP 118/67; PULSE 77; RESP 16; TEMP 36.6; O2SAT 98
--- NOTE | 2024-01-06 12:07 | PN.HOSP_ITS ---
Reason for Visit Reason for Visit: Diagnoses Sepsis, unspecified organism (01/04/24) Malignant neoplasm of colon, unspecified (01/04/24) Crossing vessel and stricture of ureter without hydronephrosis (01/04/24) Chronic kidney disease, stage 4 (severe) (01/04/24) Acute cystitis without hematuria (01/04/24) Urinary tract infection, site not specified (01/04/24) Subjective Subjective Patient was seen and examined today, her creatinine today was 4.32, hemoglobin was 8. Patient still notices less drainage from her left nephrostomy tubes in her right one. Objective Data Objective Data Vital Signs: Vital Signs Temp Pulse Resp BP Pulse Ox O2 Del Method 97.9 F 77 16 118/67 98 Room Air 01/06/24 11:42 01/06/24 11:42 01/06/24 11:42 01/06/24 11:42 01/06/24 11:42 01/06/24 11:42 Oxygen Delivery Method Room Air Weight: 65.091 kg Body Mass Index (BMI) 22.4 Intake & Output: Intake and Output for Last 24 Hours 01/04/24 01/05/24 01/06/24 23:59 23:59 23:59 Intake Total 3411.25 / 3511.25 3474.34 / 3474.34 1350 / 1350 Output Total 480 / 480 1980 / 2385 1010 / 1010 Balance 2931.25 / 3031.25 1494.34 / 1089.34 340 / 340 Medical Nutrition Assessment Dietitian: Malnutrition Criteria Met Start: 01/04/24 11:28 Freq: Status: Active Protocol: Document 01/04/24 11:29 TEODORO (Rec: 01/04/24 11:29 TEODORO Desktop) Nutrition Malnutrition Evidence of Malnutrition Exists Yes Malnutrition (severe): Chronic Evidenced By Suboptimal Energy Intake ( Severe),Weight Loss (Severe) Clinical Problem Chronic Disease or Condition Related Malnutrition Etiology related to inadequate energy intake Signs/Symptoms as evidenced by po intake meeting <50% of estimated nutritional needs and 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8, Immature Gran % (Auto) 2.000 H, Neut % (Auto) 82.6 H, Lymph % (Auto) 9.3 L, [place] % (Auto) 4.6, Eos % (Auto) 1.3, Baso % (Auto) 0.2, Absolute Neuts (auto) 5.1, Absolute Lymphs (auto) 0.57 L, Nucleated RBC % 0, Sodium 139, Potassium 5.1, Chloride 119 H, Carbon Dioxide 16.0 L, Anion Gap 4 L, BUN 45 H, Creatinine 4.32 H, Estim Creat Clear Calc 11.62, Est GFR (MDRD) Af Amer 13 L, Est GFR (MDRD) Non-Af 11 L, BUN/Creatinine Ratio 10.4, Glucose 83, Calcium 8.6, Magnesium 1.7 Micro: Microbiology 01/04/24 02:37 Urine, Nephrostomy Urine Culture - Preliminary Enterobacter cloacae complex Alpha hemolytic organism 01/04/24 00:10 Blood Culture (Wb) - Chest Blood Culture - Preliminary Enterobacter cloacae complex 01/03/24 23:09 Blood Culture (Wb) - Port Blood Culture - Preliminary Enterobacter cloacae complex 01/03/24 23:24 Mucosa - Nose SARS-CoV-2, Influenza & RSV (PCR) - Final Physical Exam Narrative alert, oriented x3, no apparent distress and healthy appearing General Appearance: cooperative, well kempt and well developed Orientation / Consciousness: awake, oriented to person, oriented to place and oriented to time HEENT normocephalic, head/scalp atraumatic and moist oral mucous membranes Eyes PERRL, EOMs intact bilaterally and conjunctivae normal Neck supple, no JVD, thyroid normal and no carotid bruits General: trachea midline Resp normal respiratory effort, no retractions, no use of accessory muscles and clear to auscultation bilaterally Auscultation: Negative for rales, rhonchi or wheezes Cardio regular rate, regular rhythm, S1 normal heart sound, S2 normal heart sound, no murmurs, no rub and no gallops GI normal to inspection, nondistended, normoactive bowel sounds, soft to palpation, non-tender and non-distended Extremity no clubbing, cyanosis or edema Skin no rashes or lesions noted General Skin Exam: no breakdown Neuro oriented x3, CN's II-XII intact bilaterally, moves all extremities, no focal motor deficits and no sensory deficits noted Sensorium / Orientation: awake and alert Speech: speech normal Psych affect normal Assessment & Plan Assessment/Plan (1) Acute cystitis without hematuria: PLAN: Plan 1. Severe sepsis secondary to acute cystitis-urine cultures are pending at this time, she will remain on her current antibiotics #2 acute cystitis-again culture results are pending, she will remain on Zosyn #3 essential hypertension-medications will be held at this time due to her sever e sepsis, blood pressure will be monitored #4 chronic anticoagulation-patient is on Eliquis, this is due to past history of PE #5 chronic anemia secondary to anemia of chronic disease and iron deficiency anemia-requiring blood transfusion-patient does not require transfusion today, I will repeat her CBC tomorrow, she will receive a dose of Venofer today. #6 severe chronic protein and caloric malnutrition-related to inadequate energy intake as evidenced by p.o. intake meeting less than 50% of estimated nutritional needs and 15.8% unintended weight loss x 9 months-diet was liberalized to regular no added salt with 4 ounces of Ensure plus protein with breakfast and dinner due to signs and symptoms of malnutrition #7 acute kidney injury on a backdrop of chronic kidney disease stage IV- I will continue IV fluids and recheck her BMP tomorrow, I have ordered a CT of the abdomen and pelvis to make sure the left nephrostomy tube is draining, if it is not draining, it will need replaced. I will have Dr. Tafoya see the patient tomorrow, I talked to him briefly by phone today. Total clinical time spent by myself addressing the patient's medical issues, reviewing all of her data, and collaborating with patient's care team: 50 minutes Charges/Coding Visit Charges Inpatient E&M: 24641 Subs Hosp L3
[2024-01-06] MEDS: Sodium Ferric Gluconat/Sucrose 250 MG in 0.9% Normal Saline (250mL Bag) 250 ML 135 MG IV (14:37)
[2024-01-06 14:52] VITALS: BP 135/66; PULSE 113; RESP 16; TEMP 36.8; O2SAT 95
--- NOTE | 2024-01-06 18:37 | RAD_ITS ---
STUDY: X-RAY CHEST REASON FOR EXAM: Female, 73 years old. CHF TECHNIQUE: Single AP portable view of the chest. COMPARISON: 01/03/2024 FINDINGS: Left internal jugular chest port which is unchanged. Poor inspiration with some bibasilar atelectasis. There is no demonstrated pleural abnormality. Normal size heart. Normal mediastinum and mamta. Normal visualized pulmonary arteries. Normal visualized aortic arch and descending thoracic aorta. Normal visualized thoracic spine. Normal visualized ribs, clavicles, and shoulders. There is no demonstrated abnormality of the visualized soft tissue structures of the upper abdomen. RAD/Chest 1 View (Portable) IMPRESSION: Poor inspiration with some bibasilar atelectasis. Electronically Signed: Von Sanders MD at 19:19 EDT ,
[2024-01-06 22:31] VITALS: BP 146/75; PULSE 88; RESP 18; TEMP 37.6; O2SAT 96
[2024-01-06] MEDS: Loperamide 2 MG Capsule PO (22:45)
[2024-01-07] MEDS: 0.9% Normal Saline (1000mL) 1,000 ML 100 ML IV ×2 (01:39→11:43)
[2024-01-07 04:40] VITALS: BP 139/76; PULSE 88; RESP 20; TEMP 37.3; O2SAT 93
[2024-01-07] MEDS: 0.9% Saline Lock 10 ML Syringe IV (04:55)
--- NOTE | 2024-01-07 05:55 | CT_ITS ---
EXAM: CT ABDOMEN AND PELVIS WITHOUT INTRAVENOUS CONTRAST CLINICAL INDICATION: Possible obstruction of left nephrostomy tube TECHNIQUE: Helically acquired images were obtained of the abdomen and pelvis without intravenous contrast. This CT exam was performed using one or more of the following dose reduction techniques: automated exposure control, adjustment of the mA and/or kV according to patient size, and/or use of iterative reconstruction technique. RADIATION DOSE: CTDIvol = 6.62 mGy, DLP = 320.88 mGy-cm COMPARISON: 01/04/2024. FINDINGS: LOWER THORAX: Multiple scattered pulmonary nodules. Moderate atelectasis bilateral lower lobes and small bilateral pleural effusions. No cardiomegaly. ABDOMEN: LIVER: Unremarkable. Homogeneous. GALLBLADDER AND BILE DUCTS: Unremarkable. No calcified gallstones. No gallbladder distention or wall edema. No intra- or extrahepatic biliary ductal dilation. PANCREAS: Unremarkable. No focal cystic mass. SPLEEN: Unremarkable. Normal size without focal cystic or solid mass. ADRENALS: Unremarkable. No nodules. KIDNEYS AND URETERS: Bilateral percutaneous nephrostomies. Mild left perinephric stranding that is decreased compared with the previous examination. No hydronephrosis. Normal renal size and position. STOMACH AND BOWEL: Right hemicolectomy with ileostomy. Rectal anastomosis. No stomach or bowel distention. PELVIS: APPENDIX: See above. BLADDER: Unremarkable. REPRODUCTIVE: Unremarkable as visualized. No mass. ABDOMEN and PELVIS: INTRAPERITONEAL SPACE: Unremarkable. No ascites or other fluid collection. No free air. BONES/JOINTS: Unremarkable. No suspicious lytic or blastic abnormality. SOFT TISSUES: Unremarkable. No discrete abdominal or pelvic wall hernia. VASCULATURE: Unremarkable. Abdominal aorta is non-dilated. LYMPH NODES: Unremarkable. No enlarged lymph nodes. CT/Abdomen/Pelvis without Cont IMPRESSION: 1. Bilateral percutaneous nephrostomies. Mild left perinephric stranding that is decreasing compared with the previous exam. No hydronephrosis. 2. Moderate atelectasis bilateral lower lobes and small bilateral pleural effusions. 3. No acute abdominal pelvic abnormality. 4. Multiple scattered pulmonary nodules. 5. Right hemicolectomy with ileostomy. Rectal anastomosis. Electronically Signed: Martin Guy MD at 5:42 EDT ,
[2024-01-07 06:24] LABS: Absolute Lymphocyte Count 0.55 X10^3/uL (0.83-4.51); Absolute Neutrophil Count 4.3 X10^3/uL (2.0-7.7); Basophil# 0.02 X10^3/uL; Basophil% 0.4 % (0-1); Eosinophils% 1.9 % (0-5); Hematocrit 26.9 % (37-47); Hemoglobin 8.3 g/dL (12.0-15.0); Lymphocyte # 0.55 X10^3/ul (0.83-4.51); Lymphocyte % 10.2 % (19-41); Mean Corp Hgb Conc 30.9 g/dL (32-36); Mean Corpuscular Hgb 28.6 pg (27.0-32.0); Mean Corpuscular Volume 92.8 fL (81-99); Mean Platelet Vol. 9.6 fl (6.2-12.0); Monocyte# 0.36 X10^3/uL; Monocyte% 6.7 % (0-10); NRBC Flagged by Analyzer 0 % (0-5); Neutrophil # 4.26 X10^3/uL (2.7-7.7); Neutrophil % 78.9 % (47-70); POSITIVE DIFFERENTIAL YES; Platelet Count 204 K/mm3 (150-450); RBC Distribution Width CV 16.7 % (11.6-14.6); RBC Distribution Width SD 55.5 fl (35.1-43.9); White Blood Count 5.4 K/mm3 (4.4-11.0)
--- NOTE | 2024-01-07 07:22 | PCM.PN.HOSP ---
Reason for Visit Reason for Visit: Diagnoses Sepsis, unspecified organism (01/04/24) Malignant neoplasm of colon, unspecified (01/04/24) Crossing vessel and stricture of ureter without hydronephrosis (01/04/24) Chronic kidney disease, stage 4 (severe) (01/04/24) Acute cystitis without hematuria (01/04/24) Urinary tract infection, site not specified (01/04/24) Subjective Subjective Feels better overall. Objective Data Objective Data Vital Signs: Vital Signs Temp Pulse Resp BP Pulse Ox O2 Del Method 37.3 C 88 20 H 139/76 H 93 Room Air 01/07/24 04:40 01/07/24 04:40 01/07/24 04:40 01/07/24 04:40 01/07/24 04:40 01/07/24 04:50 Oxygen Delivery Method Room Air Weight: 65.091 kg Body Mass Index (BMI) 22.4 Intake & Output: Intake and Output for Last 24 Hours 01/05/24 01/06/24 01/07/24 23:59 23:59 23:59 Intake Total 3474.34 / 3474.34 3468.33 / 3468.33 1015 / 1015 Output Total 1980 / 2385 2430 / 2430 900 / 900 Balance 1494.34 / 1089.34 1038.33 / 1038.33 115 / 115 Medical Nutrition Assessment Dietitian: Malnutrition Criteria Met Start: 01/04/24 11:28 Freq: Status: Active Protocol: Document 01/04/24 11:29 SLA (Rec: 01/04/24 11:29 TEODORO Desktop) Nutrition Malnutrition Evidence of Malnutrition Exists Yes Malnutrition (severe): Chronic Evidenced By Suboptimal Energy Intake ( Severe),Weight Loss (Severe) Clinical Problem Chronic Disease or Condition Related Malnutrition Etiology related to inadequate energy intake Signs/Symptoms as evidenced by po intake meeting <50% of estimated nutritional needs and 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 Recommendation Dietitian Recommendations/Changes Will liberalize diet to Regular No Added Salt with 4 oz ensure plus high protein w/ breakfast and dinner d/t signs and symptoms of malnutrition Consider appetite stimulant if po intake fails to improve Lab / Micro Data 01/07/24 05:35 01/07/24 05:35 Labs: Laboratory Results - last 24 hr 01/07/24 05:35: WBC 5.4, RBC 2.90 L, Hgb 8.3 L, Hct 26.9 L, MCV 92.8, MCH 28.6, MCHC 30.9 L, RDW Std Deviation 55.5 H, RDW Coeff of Ismael 16.7 H, Plt Count 204, MPV 9.6, Immature Gran % (Auto) 1.900 H, Neut % (Auto) 78.9 H, Lymph % (Auto) 10.2 L, [place] % (Auto) 6.7, Eos % (Auto) 1.9, Baso % (Auto) 0.4, Absolute Neuts (auto) 4.3, Absolute Lymphs (auto) 0.55 L, Nucleated RBC % 0 Micro: Microbiology 01/04/24 02:37 Urine, Nephrostomy Urine Culture - Preliminary Enterobacter cloacae complex Alpha hemolytic organism 01/04/24 00:10 Blood Culture (Wb) - Chest Blood Culture - Preliminary Enterobacter cloacae complex 01/03/24 23:09 Blood Culture (Wb) - Port Blood Culture - Preliminary Enterobacter cloacae complex 01/03/24 23:24 Mucosa - Nose SARS-CoV-2, Influenza & RSV (PCR) - Final Radiography Diagnostic Testing: Radiology Impression Chest X-Ray 01/06/24 18:37 IMPRESSION: Poor inspiration with some bibasilar atelectasis. Electronically Signed: Von Sanders MD at 19:19 EDT , Abdomen/Pelvis CT 01/07/24 05:55 IMPRESSION: 1. Bilateral percutaneous nephrostomies. Mild left perinephric stranding that is decreasing compared with the previous exam. No hydronephrosis. 2. Moderate atelectasis bilateral lower lobes and small bilateral pleural effusions. 3. No acute abdominal pelvic abnormality. 4. Multiple scattered pulmonary nodules. 5. Right hemicolectomy with ileostomy. Rectal anastomosis. Electronically Signed: Martin Guy MD at 5:42 EDT , Physical Exam Narrative nephrostomy tubes with jacey urine. Const alert and no apparent distress HEENT head/scalp atraumatic and moist oral mucous membranes Resp normal respiratory effort, no retractions, no use of accessory muscles and clear to auscultation bilaterally Cardio regular rate, regular rhythm, S1 normal heart sound and S2 normal heart sound GI normal to inspection, nondistended, normoactive bowel sounds, soft to palpation, non-tender and non-distended Extremity normal to inspection Neuro Sensorium / Orientation: awake and alert Assessment & Plan Assessment/Plan (1) Acute cystitis without hematuria: PLAN: Plan UTI UCx with [id number] cloacae complex and VRE. changed to meropenem. qSOFA on admission 0, therefore sepsis ruled out. Has nephrostomy tubes in place Cultures have consistently been Enterobacter cloacae complex. Consult infectious disease. Cannot rule out being chronically infected. CT showed bilateral perc nephrostomies. Mild left perinephric stranding that is decreasing compared to previous. Bacteremia: Enterobacter cloacae complex 2/2 UTI MAJO on CKD IV worsened during admission, since improved. has seen , appears that nephrostomy tubes are draining appropriately. Nephrology following. severe chronic protein and caloric malnutrition related to inadequate energy intake as evidenced by p.o. intake meeting less than 50% of estimated nutritional needs and 15.8% unintended weight loss x 9 months-diet was liberalized to regular no added salt with 4 ounces of Ensure plus protein with breakfast and dinner due to signs and symptoms of malnutrition Chronic conditions: essential hypertension-medications will be held at this time due to her severe sepsis, blood pressure will be monitored h/o VTE: apixaban chronic anemia secondary to anemia of chronic disease and iron deficiency anemia-requiring blood transfusion-patient does not require transfusion today, I will repeat her CBC tomorrow, she will receive a dose of Venofer today. VTE prophylaxis: not indicated as already on anticoagulation. Charges/Coding Visit Charges Inpatient E&M: 47808 Subs Hosp L2
[2024-01-07 07:52] LABS: Anion Gap 8 (5-15); BUN 42 mg/dL (7-18); BUN/Creat Ratio 11.8 RATIO (10-20); Calcium,Total 8.9 mg/dL (8.5-10.1); Chloride 117 mmol/L (98-107); Creatinine, Serum 3.56 mg/dL (0.55-1.02); EST Glomerular Filtration Rate 13 mL/min (>60); Est Glom Filt Rate - Afr Amer 16 mL/min (>60); Glucose 85 mg/dL (74-106); Potassium 4.1 mmol/L (3.5-5.1); Sodium Level 140 mmol/L (136-145)
[2024-01-07 08:30] VITALS: BP 129/70; PULSE 77; RESP 18; TEMP 36.8; O2SAT 95
[2024-01-07] MEDS: APIXABAN 5 MG TABLET PO ×2 (08:31→22:31)
[2024-01-07] MEDS: Pantoprazole Sodium 40 MG Tablet PO (08:31)
[2024-01-07] MEDS: Magnesium Chloride 64 MG Delay Rel.Tablet 128 MG PO (08:31)
[2024-01-07] MEDS: Loratadine 10 MG Tablet PO (08:31)
[2024-01-07] MEDS: Loperamide 2 MG Capsule PO (08:31)
[2024-01-07] MEDS: Lactobacillis Acidophilus 2 CAP PO ×2 (08:31→22:31)
--- NOTE | 2024-01-07 10:20 | WOUNDNOTE ---
Ileostomy appliance changed per pt request. removed pouch. stoma is pink and well budded. peristomal skin is intact. cleansed skin with warm water. pat dry. applied a new 2 piece flat Oxbow appliance with a paste ring. pt tolerated well and denies further needs at this time.
[2024-01-07] MEDS: Piperacil/Tazobactam 3.375 GM in 0.9% Normal Saline (50mL MB+) 50 ML IV (11:43)
--- NOTE | 2024-01-07 12:34 | PCM.CONS.R ---
Documented by User: PAYAL Almazan 01/07/24 12:53 Assessment & Plan Assessment/Plan (1) MAJO (acute kidney injury): (2) Acute cystitis without hematuria: (3) Chronic kidney disease: QUALIFIERS: Chronic kidney disease stage: stage 4 (severe) Qualified Code(s): N18.4 - Chronic kidney disease, stage 4 (severe) (4) Metabolic acidosis: PLAN: Plan This is a very pleasant unfortunate 73-year-old female with past medical history significant for metastatic colon cancer (initially diagnosed 2016) with metastasis into the bladder requiring partial cystectomy April 2023 found to have bilateral hydronephrosis (August 2023) followed by urology and underwent cystoscopy with bilateral ureteral stent insertion August 2023 in [place], admitted to [facility] September 2023 underwent removal of stents and status post b/l nephrostomy tubes placed and states has appointment with interventional radiology end of December for nephrostomy tube change to be seen in [facility] who presented to the emergency room with feeling unwell, nausea, vomiting, fever and abdominal pain, admitted for acute cystitis. Nephrology consulted in view of rising serum creatinine. Creatinine was 2.37 mg/dL on admission, yesterday creatinine peaked 4.32 mg/dL and today creatinine is 3.56 mg/dL. Quite possibly MAJO multi-factoral from significant volume depletion, poor oral and solute intake, infection. Also to note patient reports that she noted since left nephrostomy tube was not producing urine. CT scan in emergency room showed nephrostomy tubes in good position, residual bilateral hydronephrosis with bilateral perinephric stranding. Left nephrostomy tube was flushed yesterday and after flush patient noted nephrostomy tube to be producing urine. At this time there is no acute indication for renal replacement therapy, patient is nonoliguric and potassium is normal, she does have low bicarb but will replace. Patient did have bladder cath in hospital which only showed ~10ml urine. She is on IV antibiotics, Zyvox for cystis. CKD stage IV with baseline SCr ~mid 2mg/dL range. Further orders forthcoming as hospitalization evolves, thank you for allowing us participate in the care of Ms. Nam. HPI Consult Data Date of Consult: 01/07/24 HPI Narrative HPI Narrative: SANTI NAM, is a 73 F with past medical history significant for metastatic colon cancer (initially diagnosed 2016) with metastasis into the bladder requiring partial cystectomy April 2023 found to have bilateral hydronephrosis (August 2023) followed by urology and underwent cystoscopy with bilateral ureteral stent insertion August 2023 in [place], admitted to [facility] September 2023 underwent removal of stents and status post nephrostomy tubes placed and states has appointment with interventional radiology end of December for nephrostomy tube change to be seen in [facility] who presented to the emergency room with feeling unwell, nausea, vomiting, fever and abdominal pain. Workup in the emergency room concerning for cystitis and patient was admitted for further evaluation and treatment. Nephrology consulted in view of rising serum creatinine. Patient is known to our group from consultation in hospital and also seen in office. Patient initially developed acute kidney injury episode with creatinine going as high as 10 mg/dL in May 2023, MAJO episode was from significant volume depletion, hypotension and patient never required any renal replacement therapy. His creatinine leveled off to around 1.2 mg/dL. Patient then developed multiple MAJO episodes after May 2023 but again has never required any renal replacement therapy. Patient was last seen in hospital by our group in October 2023 for MAJO, MAJO felt to be secondary to significant volume depletion and UTI. Her nephrostomy tubes had good urine output with left greater than right at that time but she was also doing self catheterizations of her bladder at home. Patient had a bladder scan in the hospital which showed around 700 mL urine therefore she did self catheterization in hospital. Renal ultrasound was unremarkable in October 2023. Today patient reports that she is not doing bladder self catheterizations as frequently and currently the amount of urine output is very minimal. 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 Peritoneal metastases Pulmonary embolism s/p port placement Sepsis Sinus tachycardia by electrocardiography Ureteral stent present Urinary retention UTI (urinary tract infection) Home Medications omeprazole 20 mg capsule,delayed release 40 mg PO DAILY ACID REFLUX 01/12/17 [History Last Taken 09/27/23] loperamide 2 mg capsule 2 mg PO Q6H PRN DIARRHEA 08/01/23 [History Last Taken 09/27/23] loratadine 10 mg tablet (Claritin) 10 mg PO DAILY ALLERGIES 08/01/23 [History Last Taken 09/27/23] amlodipine 5 mg tablet 5 mg PO DAILY BLOOD PRESSURE 09/11/23 [History Last Taken 09/27/23] apixaban 5 mg tablet (Eliquis) 5 mg PO BID BLOOD THINNER 09/11/23 [History Last Taken 11/05/23 09:00] magnesium 200 mg tablet 400 mg PO DAILY supplement 11/05/23 [History Last Taken Unknown] trifluridine 20 mg-tipiracil 8.19 mg tablet (Lonsurf) 1 tab PO BID 01/03/24 [History Last Taken Unknown] Allergy/AdvReac Type Severity Reaction Status Date / Time No Known Allergies Allergy Verified 01/03/24 21:55 Family History Mother Hypertension Father Melanoma Brother Melanoma Aunt Breast cancer Surgical History H/O: hysterectomy History of appendectomy History of bowel resection History of Hx of ileostomy S/P colectomy S/P laparoscopic colectomy s/p port placement (~12/06/18) Social History Smoking Status: Former smoker alcohol intake: current alcohol intake frequency: holidays/special occasions only substance use type: does not use caffeine: Yes what type of physical activity do you participate in: walking and weight training frequency: daily seatbelt use: always do you feel safe at home: Yes additional social history: - 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 No wheezing rhonchi or rales noted Abdomen soft, nontender No edema Bilateral nephrostomy tube with cloudy yellow urine in each bag, similar volume in each bag Medical Records Data Medical Nutrition Assessment Dietitian: Malnutrition Criteria Met Start: 01/04/24 11:28 Freq: Status: Active Protocol: Document 01/07/24 11:33 SLA (Rec: 01/07/24 11:33 SLA Desktop) Nutrition Malnutrition Evidence of Malnutrition Exists Yes Malnutrition (severe): Chronic Evidenced By Suboptimal Energy Intake ( Severe),Weight Loss (Severe) Clinical Problem Chronic Disease or Condition Related Malnutrition Etiology related to inadequate energy intake Signs/Symptoms as evidenced by po intake meeting ~50% of estimated nutritional needs and 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 Problem Recommendation Dietitian Recommendations/Changes Will continue liberalized diet of Regular No Added Salt with 4 oz ensure plus high protein w/ breakfast and lunch d/t signs and symptoms of malnutrition Consider appetite stimulant if po intake fails to improve Lab / Micro Data 01/07/24 05:35 01/07/24 05:35 Labs: Laboratory Results - last 24 hr 01/07/24 05:35: WBC 5.4, RBC 2.90 L, Hgb 8.3 L, Hct 26.9 L, MCV 92.8, MCH 28.6, MCHC 30.9 L, RDW Std Deviation 55.5 H, RDW Coeff of Ismael 16.7 H, Plt Count 204, MPV 9.6, Immature Gran % (Auto) 1.900 H, Neut % (Auto) 78.9 H, Lymph % (Auto) 10.2 L, [place] % (Auto) 6.7, Eos % (Auto) 1.9, Baso % (Auto) 0.4, Absolute Neuts (auto) 4.3, Absolute Lymphs (auto) 0.55 L, Nucleated RBC % 0, Sodium 140, Potassium 4.1, Chloride 117 H, Carbon Dioxide 15.0 L, Anion Gap 8, BUN 42 H, Creatinine 3.56 H, Estim Creat Clear Calc 14.10, Est GFR (MDRD) Af Amer 16 L, Est GFR (MDRD) Non-Af 13 L, BUN/Creatinine Ratio 11.8, Glucose 85, Calcium 8.9 Micro: Microbiology 01/03/24 23:09 Blood Culture (Wb) - Port Blood Culture - Final Enterobacter cloacae complex 01/04/24 02:37 Urine, Nephrostomy Urine Culture - Final Enterobacter cloacae complex Vancomycin Resist. E. faecium 01/04/24 00:10 Blood Culture (Wb) - Chest Blood Culture - Preliminary Enterobacter cloacae complex Imaging Radiology Impression Chest X-Ray 01/06/24 18:37 IMPRESSION: Poor inspiration with some bibasilar atelectasis. Electronically Signed: Von Sanders MD at 19:19 EDT , Abdomen/Pelvis CT 01/07/24 05:55 IMPRESSION: 1. Bilateral percutaneous nephrostomies. Mild left perinephric stranding that is decreasing compared with the previous exam. No hydronephrosis. 2. Moderate atelectasis bilateral lower lobes and small bilateral pleural effusions. 3. No acute abdominal pelvic abnormality. 4. Multiple scattered pulmonary nodules. 5. Right hemicolectomy with ileostomy. Rectal anastomosis. Electronically Signed: Martin Guy MD at 5:42 EDT , Documented by User: Dr. Ladonna Coyne MD 01/07/24 15:26 Assessment & Plan Assessment/Plan (1) MAJO (acute kidney injury): (2) Acute cystitis without hematuria: (3) Chronic kidney disease: QUALIFIERS: Chronic kidney disease stage: stage 4 (severe) Qualified Code(s): N18.4 - Chronic kidney disease, stage 4 (severe) (4) Metabolic acidosis: HPI Consult Data Date of Consult: 01/07/24 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 Peritoneal metastases Pulmonary embolism s/p port placement Sepsis Sinus tachycardia by electrocardiography Ureteral stent present Urinary retention UTI (urinary tract infection) Home Medications omeprazole 20 mg capsule,delayed release 40 mg PO DAILY ACID REFLUX 01/12/17 [History Last Taken 09/27/23] loperamide 2 mg capsule 2 mg PO Q6H PRN DIARRHEA 08/01/23 [History Last Taken 09/27/23] loratadine 10 mg tablet (Claritin) 10 mg PO DAILY ALLERGIES 08/01/23 [History Last Taken 09/27/23] amlodipine 5 mg tablet 5 mg PO DAILY BLOOD PRESSURE 09/11/23 [History Last Taken 09/27/23] apixaban 5 mg tablet (Eliquis) 5 mg PO BID BLOOD THINNER 09/11/23 [History Last Taken 11/05/23 09:00] magnesium 200 mg tablet 400 mg PO DAILY supplement 11/05/23 [History Last Taken Unknown] trifluridine 20 mg-tipiracil 8.19 mg tablet (Lonsurf) 1 tab PO BID 01/03/24 [History Last Taken Unknown] Allergy/AdvReac Type Severity Reaction Status Date / Time No Known Allergies Allergy Verified 01/03/24 21:55 Family History Mother Hypertension Father Melanoma Brother Melanoma Aunt Breast cancer Surgical History H/O: hysterectomy History of appendectomy History of bowel resection History of Hx of ileostomy S/P colectomy S/P laparoscopic colectomy s/p port placement (~12/06/18) Social History Smoking Status: Former smoker alcohol intake: current alcohol intake frequency: holidays/special occasions only substance use type: does not use caffeine: Yes what type of physical activity do you participate in: walking and weight training frequency: daily seatbelt use: always do you feel safe at home: Yes additional social history: - 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
[2024-01-07] MEDS: Meropenem 500 MG in 0.9% Normal Saline (50mL MB+) 50 ML 100 MG IV ×2 (13:17→22:55)
--- NOTE | 2024-01-07 13:34 | PCM.CONS.GEN ---
Assessment & Plan Assessment/Plan (1) Bacteremia: PLAN: Enterobacter bacteremia due to pyelo with bilat neph tubes in place - urology following. Ucx also with VRE. Zosyn is not reliable for enterobacter, will change to leon and add linezolid for VRE. Will follow, thank you (2) Colon cancer: QUALIFIERS: Colon location: unspecified part of colon Qualified Code(s): C18.9 - Malignant neoplasm of colon, unspecified (3) MAJO (acute kidney injury): (4) Pyelonephritis: HPI Consult Data Date of Consult: 01/07/24 HPI Narrative Reason for Consultation: bacteremia HPI Narrative: SANTI NAM, is a 73 F with h/o colon cancer, bilat neph tubes, gets chemo via L chest port. C/o recurrent urinary infections. Gets tubes changed monthly. Came to ED with several days fever, chills, not feeling well. No abd pain or chest pain. No dysuria. No n/v/d. Admitted on zosyn and linezolid 01/04/24. Linezolid was stopped. Overall feeling a little better. No issues with port. Full ROS performed and neg except as noted above. 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 Peritoneal metastases Pulmonary embolism s/p port placement Sepsis Sinus tachycardia by electrocardiography Ureteral stent present Urinary retention UTI (urinary tract infection) Home Medications omeprazole 20 mg capsule,delayed release 40 mg PO DAILY ACID REFLUX 01/12/17 [History Last Taken 09/27/23] loperamide 2 mg capsule 2 mg PO Q6H PRN DIARRHEA 08/01/23 [History Last Taken 09/27/23] loratadine 10 mg tablet (Claritin) 10 mg PO DAILY ALLERGIES 08/01/23 [History Last Taken 09/27/23] amlodipine 5 mg tablet 5 mg PO DAILY BLOOD PRESSURE 09/11/23 [History Last Taken 09/27/23] apixaban 5 mg tablet (Eliquis) 5 mg PO BID BLOOD THINNER 09/11/23 [History Last Taken 11/05/23 09:00] magnesium 200 mg tablet 400 mg PO DAILY supplement 11/05/23 [History Last Taken Unknown] trifluridine 20 mg-tipiracil 8.19 mg tablet (Lonsurf) 1 tab PO BID 01/03/24 [History Last Taken Unknown] Allergy/AdvReac Type Severity Reaction Status Date / Time No Known Allergies Allergy Verified 01/03/24 21:55 Family History Mother Hypertension Father Melanoma Brother Melanoma Aunt Breast cancer Surgical History H/O: hysterectomy History of appendectomy History of bowel resection History of Hx of ileostomy S/P colectomy S/P laparoscopic colectomy s/p port placement (~12/06/18) Social History Smoking Status: Former smoker alcohol intake: current alcohol intake frequency: holidays/special occasions only substance use type: does not use caffeine: Yes what type of physical activity do you participate in: walking and weight training frequency: daily seatbelt use: always do you feel safe at home: Yes additional social history: - 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 Exam Const alert, oriented x3 and no apparent distress General Appearance: cooperative HEENT normocephalic and head/scalp atraumatic Eyes PERRL and EOMs intact bilaterally Neck supple and No nodes Resp normal air movement and clear to auscultation bilaterally Cardio regular rate and regular rhythm GI soft to palpation, non-tender and non-distended GI Narrative: bilat neph tubes Extremity General Extremity: Negative for edema Skin no rashes or lesions noted Neuro CN's II-XII intact bilaterally Medical Records Data Medical Nutrition Assessment Dietitian: Malnutrition Criteria Met Start: 01/04/24 11:28 Freq: Status: Active Protocol: Document 01/07/24 11:33 SLA (Rec: 01/07/24 11:33 SLA Desktop) Nutrition Malnutrition Evidence of Malnutrition Exists Yes Malnutrition (severe): Chronic Evidenced By Suboptimal Energy Intake ( Severe),Weight Loss (Severe) Clinical Problem Chronic Disease or Condition Related Malnutrition Etiology related to inadequate energy intake Signs/Symptoms as evidenced by po intake meeting ~50% of estimated nutritional needs and 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 01/07/24 05:35 01/07/24 05:35 Labs: Laboratory Results - last 24 hr 01/07/24 05:35: WBC 5.4, RBC 2.90 L, Hgb 8.3 L, Hct 26.9 L, MCV 92.8, MCH 28.6, MCHC 30.9 L, RDW Std Deviation 55.5 H, RDW Coeff of Ismael 16.7 H, Plt Count 204, MPV 9.6, Immature Gran % (Auto) 1.900 H, Neut % (Auto) 78.9 H, Lymph % (Auto) 10.2 L, [place] % (Auto) 6.7, Eos % (Auto) 1.9, Baso % (Auto) 0.4, Absolute Neuts (auto) 4.3, Absolute Lymphs (auto) 0.55 L, Nucleated RBC % 0, Sodium 140, Potassium 4.1, Chloride 117 H, Carbon Dioxide 15.0 L, Anion Gap 8, BUN 42 H, Creatinine 3.56 H, Estim Creat Clear Calc 14.10, Est GFR (MDRD) Af Amer 16 L, Est GFR (MDRD) Non-Af 13 L, BUN/Creatinine Ratio 11.8, Glucose 85, Calcium 8.9 Micro: Microbiology 01/03/24 23:09 Blood Culture (Wb) - Port Blood Culture - Final Enterobacter cloacae complex 01/04/24 02:37 Urine, Nephrostomy Urine Culture - Final Enterobacter cloacae complex Vancomycin Resist. E. faecium Imaging Radiology Impression Chest X-Ray 01/06/24 18:37 IMPRESSION: Poor inspiration with some bibasilar atelectasis. Electronically Signed: Von Sanders MD at 19:19 EDT , Abdomen/Pelvis CT 01/07/24 05:55 IMPRESSION: 1. Bilateral percutaneous nephrostomies. Mild left perinephric stranding that is decreasing compared with the previous exam. No hydronephrosis. 2. Moderate atelectasis bilateral lower lobes and small bilateral pleural effusions. 3. No acute abdominal pelvic abnormality. 4. Multiple scattered pulmonary nodules. 5. Right hemicolectomy with ileostomy. Rectal anastomosis. Electronically Signed: Martin Guy MD at 5:42 EDT ,
[2024-01-07] MEDS: Linezolid 600 MG Tablet PO ×2 (13:40→22:30)
[2024-01-07] MEDS: Sodium Bicarbonate 150 MEQ in Dextrose 5%-Water (1000mL Bag) 1,000 ML 100 MEQ IV (13:40)
--- NOTE | 2024-01-07 13:59 | CASEMGMT ---
Message sent to [facility] via [employer] to make aware pt will not dc this date.
[2024-01-07 14:29] VITALS: BP 145/70; PULSE 79; RESP 16; TEMP 36.6; O2SAT 99
[2024-01-07 22:26] VITALS: BP 154/82; PULSE 78; RESP 18; TEMP 36.9; O2SAT 97
[2024-01-08] MEDS: Sodium Bicarbonate 150 MEQ in Dextrose 5%-Water (1000mL Bag) 1,000 ML 100 MEQ IV (03:05)
[2024-01-08 03:06] VITALS: BP 150/82; PULSE 82; RESP 20; TEMP 36.8; O2SAT 94
[2024-01-08 07:10] LABS: Absolute Lymphocyte Count 0.68 X10^3/uL (0.83-4.51); Absolute Neutrophil Count 2.6 X10^3/uL (2.0-7.7); Basophil# 0.01 X10^3/uL; Basophil% 0.3 % (0-1); Eosinophil# 0.09 X10^3/uL; Eosinophils% 2.3 % (0-5); Hematocrit 25.7 % (37-47); Hemoglobin 8.1 g/dL (12.0-15.0); Lymphocyte # 0.68 X10^3/ul (0.83-4.51); Lymphocyte % 17.7 % (19-41); Mean Corp Hgb Conc 31.5 g/dL (32-36); Mean Corpuscular Hgb 28.1 pg (27.0-32.0); Mean Corpuscular Volume 89.2 fL (81-99); Mean Platelet Vol. 9.6 fl (6.2-12.0); Monocyte% 10.4 % (0-10); NRBC Flagged by Analyzer 0 % (0-5); Neutrophil # 2.63 X10^3/uL (2.7-7.7); Neutrophil % 68.3 % (47-70); Platelet Count 203 K/mm3 (150-450); RBC Distribution Width CV 15.9 % (11.6-14.6); RBC Distribution Width SD 51.7 fl (35.1-43.9); Red Blood Count 2.88 M/mm3 (4.2-5.4); White Blood Count 3.9 K/mm3 (4.4-11.0)
--- NOTE | 2024-01-08 07:13 | PN.HOSP_ITS ---
Reason for Visit Reason for Visit: Diagnoses Sepsis, unspecified organism (01/04/24) Malignant neoplasm of colon, unspecified (01/04/24) Acidosis, unspecified (01/04/24) Tubulo-interstitial nephritis, not specified as acute or chronic (01/04/24) Crossing vessel and stricture of ureter without hydronephrosis (01/04/24) Acute kidney failure, unspecified (01/04/24) Chronic kidney disease, stage 4 (severe) (01/04/24) Acute cystitis without hematuria (01/04/24) Urinary tract infection, site not specified (01/04/24) Bacteremia (01/04/24) Subjective Subjective Feels well. No new issues. Objective Data Objective Data Vital Signs: Vital Signs Temp Pulse Resp BP Pulse Ox O2 Del Method 36.8 C 82 20 H 150/82 H 94 Room Air 01/08/24 03:06 01/08/24 03:06 01/08/24 03:06 01/08/24 03:06 01/08/24 03:06 01/08/24 03:06 Oxygen Delivery Method Room Air Weight: 65.091 kg Body Mass Index (BMI) 22.4 Intake & Output: Intake and Output for Last 24 Hours 01/06/24 01/07/24 01/08/24 23:59 23:59 23:59 Intake Total 3468.33 / 3468.33 3251.25 / 3251.25 230 / 230 Output Total 2430 / 2430 4270 / 4270 1200 / 1200 Balance 1038.33 / 1038.33 -1018.75 / -1018.75 -970 / -970 Medical Nutrition Assessment Dietitian: Malnutrition Criteria Met Start: 01/04/24 11:28 Freq: Status: Active Protocol: Document 01/07/24 11:33 SLA (Rec: 01/07/24 11:33 SLA Desktop) Nutrition Malnutrition Evidence of Malnutrition Exists Yes Malnutrition (severe): Chronic Evidenced By Suboptimal Energy Intake ( Severe),Weight Loss (Severe) Clinical Problem Chronic Disease or Condition Related Malnutrition Etiology related to inadequate energy intake Signs/Symptoms as evidenced by po intake meeting ~50% of estimated nutritional needs and 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 Problem Recommendation Dietitian Recommendations/Changes Will continue liberalized diet of Regular No Added Salt with 4 oz ensure plus high protein w/ breakfast and lunch d/t signs and symptoms of malnutrition Consider appetite stimulant if po intake fails to improve Lab / Micro Data 01/08/24 06:15 01/08/24 06:15 Labs: Laboratory Results - last 24 hr 01/07/24 05:35: Sodium 140, Potassium 4.1, Chloride 117 H, Carbon Dioxide 15.0 L , Anion Gap 8, BUN 42 H, Creatinine 3.56 H, Estim Creat Clear Calc 14.10, Est GFR (MDRD) Af Amer 16 L, Est GFR (MDRD) Non-Af 13 L, BUN/Creatinine Ratio 11.8, Glucose 85, Calcium 8.9 01/08/24 06:15: WBC 3.9 L, RBC 2.88 L, Hgb 8.1 L, Hct 25.7 L, MCV 89.2, MCH 28.1, MCHC 31.5 L, RDW Std Deviation 51.7 H, RDW Coeff of Ismael 15.9 H, Plt Count 203, MPV 9.6, Immature Gran % (Auto) 1.000 H, Neut % (Auto) 68.3, Lymph % (Auto) 17.7 L, [place] % (Auto) 10.4 H, Eos % (Auto) 2.3, Baso % (Auto) 0.3, Absolute Neuts (auto) 2.6, Absolute Lymphs (auto) 0.68 L, Nucleated RBC % 0 Micro: Microbiology 01/03/24 23:09 Blood Culture (Wb) - Port Blood Culture - Final Enterobacter cloacae complex 01/04/24 02:37 Urine, Nephrostomy Urine Culture - Final Enterobacter cloacae complex Vancomycin Resist. E. faecium 01/04/24 00:10 Blood Culture (Wb) - Chest Blood Culture - Preliminary Enterobacter cloacae complex 01/03/24 23:24 Mucosa - Nose SARS-CoV-2, Influenza & RSV (PCR) - Final Physical Exam Const alert and no apparent distress HEENT head/scalp atraumatic and moist oral mucous membranes Resp normal respiratory effort, no retractions, no use of accessory muscles and clear to auscultation bilaterally Cardio regular rate, regular rhythm, S1 normal heart sound and S2 normal heart sound GI normal to inspection, nondistended, normoactive bowel sounds, soft to palpation, non-tender and non-distended Assessment & Plan Assessment/Plan (1) Acute cystitis without hematuria: PLAN: Plan UTI * UCx with [id number] cloacae complex and VRE. * changed to meropenem and linezolid. ID planning on IV ertapenem with home health care (pt ann has a port) * qSOFA on admission 0, therefore sepsis ruled out. * Has nephrostomy tubes in place * CT showed bilateral perc nephrostomies. Mild left perinephric stranding that is decreasing compared to previous. Bacteremia: * Enterobacter cloacae complex * 2/2 UTI MAJO * on CKD IV * worsened during admission, since improved. * has seen , appears that nephrostomy tubes are draining appropriately. * Nephrology following. severe chronic protein and caloric malnutrition * related to inadequate energy intake as evidenced by p.o. intake meeting less than 50% of estimated nutritional needs and 15.8% unintended weight loss x 9 months-diet was liberalized to regular no added salt with 4 ounces of Ensure plus protein with breakfast and dinner due to signs and symptoms of malnutrition Chronic conditions: * essential hypertension-medications will be held at this time due to her severe sepsis, blood pressure will be monitored * h/o VTE: apixaban * chronic anemia secondary to anemia of chronic disease and iron deficiency anemia-requiring blood transfusion-patient does not require transfusion today, I will repeat her CBC tomorrow, she will receive a dose of Venofer today. VTE prophylaxis: not indicated as already on anticoagulation.
[2024-01-08 07:41] LABS: Anion Gap 7 (5-15); BUN 36 mg/dL (7-18); BUN/Creat Ratio 14.3 RATIO (10-20); Calcium,Total 8.5 mg/dL (8.5-10.1); Chloride 114 mmol/L (98-107); Creatinine, Serum 2.52 mg/dL (0.55-1.02); EST Glomerular Filtration Rate 20 mL/min (>60); Est Glom Filt Rate - Afr Amer 24 mL/min (>60); Estimated Creatinine Clearance 19.91 ml/min; Glucose 100 mg/dL (74-106); Potassium 3.7 mmol/L (3.5-5.1); Sodium Level 140 mmol/L (136-145)
[2024-01-08 08:04] VITALS: BP 150/72; PULSE 74; RESP 20; TEMP 36.7; O2SAT 96
[2024-01-08] MEDS: Magnesium Chloride 64 MG Delay Rel.Tablet 128 MG PO (09:51)
[2024-01-08] MEDS: Pantoprazole Sodium 40 MG Tablet PO (09:52)
[2024-01-08] MEDS: Loratadine 10 MG Tablet PO (09:53)
[2024-01-08] MEDS: Loperamide 2 MG Capsule PO (09:53)
[2024-01-08] MEDS: APIXABAN 5 MG TABLET PO (09:53)
[2024-01-08] MEDS: Lactobacillis Acidophilus 2 CAP PO (09:58)
[2024-01-08] MEDS: Linezolid 600 MG Tablet PO (09:58)
--- NOTE | 2024-01-08 10:00 | PCM.PN.REN ---
Subjective Subjective Following for MAJO superimposed on CKD Patient is sitting up in bed. Reports feeling better again today. She does state appetite is still poor, did not eat dinner. No nausea or vomiting Objective Data Objective Data Vital Signs: Vital Signs Temp Pulse Resp BP Pulse Ox O2 Del Method 98.1 F 74 20 H 150/72 H 96 Room Air 01/08/24 08:04 01/08/24 08:04 01/08/24 08:04 01/08/24 08:04 01/08/24 08:04 01/08/24 08:04 Oxygen Delivery Method Room Air Weight: 65.091 kg Body Mass Index (BMI) 22.4 Intake & Output: Intake and Output for Last 24 Hours 01/06/24 01/07/24 01/08/24 23:59 23:59 23:59 Intake Total 3468.33 / 3468.33 3251.25 / 3251.25 230 / 230 Output Total 2430 / 2430 4270 / 4270 1200 / 1200 Balance 1038.33 / 1038.33 -1018.75 / -1018.75 -970 / -970 Medical Nutrition Assessment Dietitian: Malnutrition Criteria Met Start: 01/04/24 11:28 Freq: Status: Active Protocol: Document 01/07/24 11:33 SLA (Rec: 01/07/24 11:33 SLA Desktop) Nutrition Malnutrition Evidence of Malnutrition Exists Yes Malnutrition (severe): Chronic Evidenced By Suboptimal Energy Intake ( Severe),Weight Loss (Severe) Clinical Problem Chronic Disease or Condition Related Malnutrition Etiology related to inadequate energy intake Signs/Symptoms as evidenced by po intake meeting ~50% of estimated nutritional needs and 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 Problem Recommendation Dietitian Recommendations/Changes Will continue liberalized diet of Regular No Added Salt with 4 oz ensure plus high protein w/ breakfast and lunch d/t signs and symptoms of malnutrition Consider appetite stimulant if po intake fails to improve Lab / Micro Data 01/08/24 06:15 01/08/24 06:15 Labs: Laboratory Results - last 24 hr 01/08/24 06:15: WBC 3.9 L, RBC 2.88 L, Hgb 8.1 L, Hct 25.7 L, MCV 89.2, MCH 28.1, MCHC 31.5 L, RDW Std Deviation 51.7 H, RDW Coeff of Ismael 15.9 H, Plt Count 203, MPV 9.6, Immature Gran % (Auto) 1.000 H, Neut % (Auto) 68.3, Lymph % (Auto) 17.7 L, [place] % (Auto) 10.4 H, Eos % (Auto) 2.3, Baso % (Auto) 0.3, Absolute Neuts (auto) 2.6, Absolute Lymphs (auto) 0.68 L, Nucleated RBC % 0, Sodium 140, Potassium 3.7, Chloride 114 H, Carbon Dioxide 19.0 L, Anion Gap 7, BUN 36 H, Creatinine 2.52 H, Estim Creat Clear Calc 19.91, Est GFR (MDRD) Af Amer 24 L, Est GFR (MDRD) Non-Af 20 L, BUN/Creatinine Ratio 14.3, Glucose 100, Calcium 8.5 Micro: Microbiology 01/03/24 23:09 Blood Culture (Wb) - Port Blood Culture - Final Enterobacter cloacae complex 01/04/24 02:37 Urine, Nephrostomy Urine Culture - Final Enterobacter cloacae complex Vancomycin Resist. E. faecium 01/04/24 00:10 Blood Culture (Wb) - Chest Blood Culture - Preliminary Enterobacter cloacae complex 01/03/24 23:24 Mucosa - Nose SARS-CoV-2, Influenza & RSV (PCR) - Final Physical Exam Narrative alert and oriented, no apparent distress S1, S2, RRR Lung sounds clear anteriorly and posteriorly. No wheezing rhonchi or rales noted Abdomen soft, nontender No edema Bilateral nephrostomy tube with yellow urine in each bag, similar volume in each bag Assessment & Plan Assessment/Plan (1) MAJO (acute kidney injury): (2) Acute cystitis without hematuria: (3) Chronic kidney disease: QUALIFIERS: Chronic kidney disease stage: stage 4 (severe) Qualified Code(s): N18.4 - Chronic kidney disease, stage 4 (severe) (4) Metabolic acidosis: PLAN: Plan This is a very pleasant unfortunate 73-year-old female with past medical history significant for metastatic colon cancer (initially diagnosed 2016) with metastasis into the bladder requiring partial cystectomy April 2023 found to have bilateral hydronephrosis (August 2023) followed by urology and underwent cystoscopy with bilateral ureteral stent insertion August 2023 in [place], admitted to [facility] September 2023 underwent removal of stents and status post b/l nephrostomy tubes placed and states has appointment with interventional radiology end of December for nephrostomy tube change to be seen in [facility] who presented to the emergency room with feeling unwell, nausea, vomiting, fever and abdominal pain, admitted for acute cystitis. Nephrology consulted in view of rising serum creatinine. -Nonoliguric, mildly hypovolemic MAJO multi-factoral from significant volume depletion, poor oral and solute intake, infection. Also to note patient noted since left nephrostomy tube was not producing urine. CT scan in emergency room showed nephrostomy tubes in good position, residual bilateral hydronephrosis with bilateral perinephric stranding. Left nephrostomy tube was flushed 01/05 and after flush patient noted nephrostomy tube to be producing more urine. Patient now has good urine output out of each nephrostomy tube, documented output yesterday ~1.7L from each tube. Renal function is improving. Serum creatinine 2.37 mg/dL on admission, peaked 4.32 mg/dL on 01/05 and today creatinine is 2.52 mg/dL. No acute indication for renal placement therapy. Labs ordered for morning. - Metabolic acidosis possibly secondary to MAJO, improving with bicarb drip. Today bicarb is 19. Will continue on IV fluids for another day. -Enterobacter bacteremia due to pyelonephritis. Urine culture Enterobacter. IV antibiotics per ID. Zyvox and ertapenem. - CKD stage IV with baseline SCr ~mid 2mg/dL range.
--- NOTE | 2024-01-08 10:03 | CASEMGMT ---
Addendum entered by Amanda Kline 01/08/24 14:40: [facility] agreeable to [facility] being infusion company. Pt has dc in. DC summary attached and sent to [facility] and [facility] at this time. Addendum entered by Amanda Kline 01/08/24 13:28: Update from [facility] that they would like to use their pharmacy. Made aware that pt has chosen [facility]. [facility] gave benefit information. BASSAM DEL VALLE back into pt room to further verify that she wants to use [facility]. Pt states she would like to proceed and she is fine with the cost of the medication. She is aware that [facility] may call her to discuss. Message sent to [facility] requesting to proceed with [facility]. Awaiting response. Original Note: BASSAM DEL VALLE into pt room, pt sitting up in bed with nursing students at bedside. Pt aware that she will be dc'd to home with IV atb. Pt states she flushes her own nephrostomy tubes and that she can do her own IV atb. Provided pt with a verbal local in network list of infusion companies, pt chose [facility]. Referral sent to [facility] at this time via [employer].
[2024-01-08 10:22] VITALS: BP 144/77; PULSE 70; RESP 16; TEMP 36.6; O2SAT 96
--- NOTE | 2024-01-08 10:55 | PCM.PN.ID ---
Physical Exam Narrative Feeling better, no fever, no n/v/d. Const alert and no apparent distress Resp normal air movement and clear to auscultation bilaterally Cardio regular rate and regular rhythm GI soft to palpation, non-tender and non-distended Skin no rashes or lesions noted ID ID: Route of nutrition/ use of supplements: [] Nutritional Intake: [] IV Site: [] Dennis Catheter: [] Assessment & Plan Assessment/Plan (1) Bacteremia: PLAN: Enterobacter bacteremia due to pyelo with bilat neph tubes in place - urology following. Ucx also with small amount VRE. Bcx not finalized yet. At this point will stop linezolid, change to erta for once daily dosing as outpt iv daily via port. Changing neph tubes while on iv abx may help decrease occurrence of infection. Not a candidate for methenamine due to GFR. Will follow, wrote rx, d/w case packer and sealer (2) Colon cancer: QUALIFIERS: Colon location: unspecified part of colon Qualified Code(s): C18.9 - Malignant neoplasm of colon, unspecified (3) MAJO (acute kidney injury): (4) Pyelonephritis:
[2024-01-08] MEDS: Ertapenem Sod 0.5 GM in 0.9% Normal Saline (50mL Bag) 50 ML IV (12:07)
--- NOTE | 2024-01-08 13:49 | DS.PCM_ITS ---
Providers Date of Admission: 01/04/24 Primary Care Physician: Dr. Adrián Mckee MD Consultations 01/04/24 05:21 Consult: Onc/Wound/radiologic technician Routine Comment: Reason for Consult:: bilat nephrostomy tubes, ileostomy 01/04/24 07:36 Consult: Urology Routine Consulting Provider: Janet Curran Reason for Consult: nephrostomy tubes/UTI EMERGENT Consult: No MD Notified: Yes Date Notified: 01/04/24 Time Notified: 07:36 Method of Notification: Verbal 01/04/24 07:49 Consult: Interventional Radiology Routine Consulting Provider: Jolynn Lara Reason for Consult: nephrostomy tubes changed EMERGENT Consult: No MD Notified: No Date Notified: 01/04/24 Time Notified: 07:49 01/06/24 12:47 Consult: Nephrology Routine Consulting Provider: Florentino Tafoya Reason for Consult: MAJO, pt known to you EMERGENT Consult: No MD Notified: Yes Date Notified: 01/06/24 Time Notified: 12:47 Method of Notification: Verbal 01/07/24 07:35 Consult: Infectious Disease Routine Consulting Provider: Arthur Valverde Reason for Consult: recurrent UTI EMERGENT Consult: No Notified: Yes Date Notified: 01/07/24 Time Notified: 07:46 Method of Notification: Text Reason For Visit: UTI WITH SEPSIS Diagnosis Discharge Diagnosis (1) Acute cystitis without hematuria: Status: Acute Code(s): N30.00 - Acute cystitis without hematuria Plan UTI * UCx with [id number] cloacae complex and VRE. * changed to meropenem and linezolid. ID planning on IV ertapenem with home health care (pt [place] has a port) * qSOFA on admission 0, therefore sepsis ruled out. * Has nephrostomy tubes in place * CT showed bilateral perc nephrostomies. Mild left perinephric stranding that is decreasing compared to previous. Bacteremia: * Enterobacter cloacae complex * 2/2 UTI MAJO * on CKD IV * worsened during admission, since improved. * has seen , appears that nephrostomy tubes are draining appropriately. * Nephrology following. severe chronic protein and caloric malnutrition * related to inadequate energy intake as evidenced by p.o. intake meeting less than 50% of estimated nutritional needs and 15.8% unintended weight loss x 9 months-diet was liberalized to regular no added salt with 4 ounces of Ensure plus protein with breakfast and dinner due to signs and symptoms of malnutrition Chronic conditions: * essential hypertension-medications will be held at this time due to her severe sepsis, blood pressure will be monitored * h/o VTE: apixaban * chronic anemia secondary to anemia of chronic disease and iron deficiency anemia-requiring blood transfusion-patient does not require transfusion today, I will repeat her CBC tomorrow, she will receive a dose of Venofer today. VTE prophylaxis: not indicated as already on anticoagulation. Medications at Discharge Home Medications omeprazole 20 mg capsule,delayed release 40 mg PO DAILY ACID REFLUX 01/12/17 loperamide 2 mg capsule 2 mg PO Q6H PRN DIARRHEA 08/01/23 loratadine 10 mg tablet (Claritin) 10 mg PO DAILY ALLERGIES 08/01/23 amlodipine 5 mg tablet 5 mg PO DAILY BLOOD PRESSURE 09/11/23 apixaban 5 mg tablet (Eliquis) 5 mg PO BID BLOOD THINNER 09/11/23 magnesium 200 mg tablet 400 mg PO DAILY supplement 11/05/23 trifluridine 20 mg-tipiracil 8.19 mg tablet (Lonsurf) 1 tab PO BID 01/03/24 ertapenem 1 gram solution for injection 0.5 g IV DAILY #7 ea 01/08/24 Hospital Course Operations None Procedures None Summary of Care Provided Minutes Spent on Discharge: 40 Hospital Course: Patient presents with recurrent urinary tract infections. Culture was positive for Enterobacter and VRE. Patient be discharged with IV ertapenem. Concerned that patient may have colonization additionally on her nephrostomy tubes. Patient is to have this exchanged on the . Patient did have acute kidney i njury that did respond with IV fluids. Nephrostomy tubes are draining appropriately and was seen by urology. 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 Problem Recommendation Dietitian Recommendations/Changes Will continue liberalized diet of Regular No Added Salt with 4 oz ensure plus high protein w/ breakfast and lunch d/t signs and symptoms of malnutrition Consider appetite stimulant if po intake fails to improve Weight / BMI Weight Weight: 65.091 kg Body Mass Index (BMI) 22.4 ABG / Lab / Microbiology Data 01/08/24 06:15 01/08/24 06:15 Laboratory: Laboratory Results - last 24 hr 01/08/24 06:15: WBC 3.9 L, RBC 2.88 L, Hgb 8.1 L, Hct 25.7 L, MCV 89.2, MCH 28.1, MCHC 31.5 L, RDW Std Deviation 51.7 H, RDW Coeff of Ismael 15.9 H, Plt Count 203, MPV 9.6, Immature Gran % (Auto) 1.000 H, Neut % (Auto) 68.3, Lymph % (Auto) 17.7 L, [place] % (Auto) 10.4 H, Eos % (Auto) 2.3, Baso % (Auto) 0.3, Absolute Neuts (auto) 2.6, Absolute Lymphs (auto) 0.68 L, Nucleated RBC % 0, Sodium 140, Potassium 3.7, Chloride 114 H, Carbon Dioxide 19.0 L, Anion Gap 7, BUN 36 H, Creatinine 2.52 H, Estim Creat Clear Calc 19.91, Est GFR (MDRD) Af Amer 24 L, Est GFR (MDRD) Non-Af 20 L, BUN/Creatinine Ratio 14.3, Glucose 100, Calcium 8.5 Microbiology: Microbiology 01/03/24 23:09 Blood Culture (Wb) - Port Blood Culture - Final Enterobacter cloacae complex 01/04/24 02:37 Urine, Nephrostomy Urine Culture - Final Enterobacter cloacae complex Vancomycin Resist. E. faecium 01/04/24 00:10 Blood Culture (Wb) - Chest Blood Culture - Preliminary Enterobacter cloacae complex 01/03/24 23:24 Mucosa - Nose SARS-CoV-2, Influenza & RSV (PCR) - Final D/C Instructions Discharge Diet: No restrictions Meaningful Use Info Meaningful Use Diagnoses (Choose all that apply): None applicable Discharge Plan Admission Admit Date/Time: 01/04/24 03:52 Primary Reason for Your Visit: recurrent UTI. Attending Provider: Adrián Hunt Primary Care Provider: Adrián Mckee Consulting Providers: Kyle Ferguson; Janet Curran; Florentino Tafoya; Rivera Griggs; Arthur Valverde Instructions Additional Instructions / Restrictions: He had recurrent urinary tract infection. You will be on IV antibiotics with ertapenem. Please follow-up with hemodynamically in clinic on the for nephrostomy tube exchange. Additionally, follow-up with . Discharge Orders/Prescriptions Prescriptions: New ertapenem 1 gram recon soln 0.5 g IV DAILY Qty: 7 0RF Rx Instructions: weekly bmp, cbc, and LFT while on iv abx, fax to [phone]. Continued omeprazole 20 MG capsule 40 mg PO DAILY magnesium 200 mg tablet 400 mg PO DAILY loperamide 2 mg capsule 2 mg PO Q6H PRN (Reason: DIARRHEA ) loratadine [Claritin] 10 mg tablet 10 mg PO DAILY Eliquis 5 mg tablet 5 mg PO BID amlodipine 5 mg tablet 5 mg PO DAILY Rx Instructions: Hold for SBP less than 130 mmHg Lonsurf 20-8.19 mg tablet 1 tab PO BID Referrals / Follow Up: Adrián Mckee MD [Primary Care Provider] - Within 2 Weeks Janet Curran MD [Med Staff - Active Staff] - Within 1 Month Disposition Disposition (needs filled in before D/C Order can be placed): Home Health Service Charges/Coding Visit Charges Inpatient E&M: 66381 Disch Hosp >30min
--- NOTE | 2024-01-08 15:07 | PHA.DC_ITS ---
Pharmacy [facility] Service has performed discharge medication reconciliation and counseling for this patient. 1. ERTAPENEM 0.5GM IV DAILY X 7 DAYS The patient's discharge medication list was reviewed for discrepancies and discrepancies were resolved. The patient was counseled on the following discharge medications and changes in medications for homegoing were reviewed. The Reason for Use, instructions for use, and potential side effects were reviewed for all new medications. The patient's questions regarding all of their medications were answered. The patient was able to verbally demonstrate an understanding of their discharge medications. Medications at Discharge Home Medications omeprazole 20 mg capsule,delayed release 40 mg PO DAILY ACID REFLUX 01/12/17 loperamide 2 mg capsule 2 mg PO Q6H PRN DIARRHEA 08/01/23 loratadine 10 mg tablet (Claritin) 10 mg PO DAILY ALLERGIES 08/01/23 amlodipine 5 mg tablet 5 mg PO DAILY BLOOD PRESSURE 09/11/23 apixaban 5 mg tablet (Eliquis) 5 mg PO BID BLOOD THINNER 09/11/23 magnesium 200 mg tablet 400 mg PO DAILY supplement 11/05/23 trifluridine 20 mg-tipiracil 8.19 mg tablet (Lonsurf) 1 tab PO BID 01/03/24 ertapenem 1 gram solution for injection 0.5 g IV DAILY #7 ea 01/08/24
[2024-01-08] MEDS: 0.9% Saline Lock 10 ML Syringe IV (15:20)
== END 2024-01-08 16:15 | disposition home health service (06) | DRG 689 ==
LOC: ED 01-04 03:32 → MS3 01-04 04:03
PROVIDERS: Internal Medicine; Admitting Provider Internal Medicine; Emergency Provider Emergency Medicine; PCP Family Medicine
DX: N13.6 Pyonephrosis (principal); E43 Unspecified severe protein-calorie malnutrition; R78.81 Bacteremia; E87.20 Acidosis, unspecified; C18.9 Malignant neoplasm of colon, unspecified; N17.9 Acute kidney failure, unspecified; D63.1 Anemia in chronic kidney disease; E86.9 Volume depletion, unspecified; N18.4 Chronic kidney disease, stage 4 (severe); Z93.2 Ileostomy status; Z93.6 Other artificial openings of urinary tract status; I12.9 Hypertensive chronic kidney disease with stage 1 through stage 4 chronic kidney disease, or unspecified chronic kidney disease; D50.9 Iron deficiency anemia, unspecified; K21.9 Gastro-esophageal reflux disease without esophagitis; B95.2 Enterococcus as the cause of diseases classified elsewhere; Z68.22 Body mass index [BMI] 22.0-22.9, adult; Z11.52 Encounter for screening for COVID-19; Z79.01 Long term (current) use of anticoagulants; Z87.891 Personal history of nicotine dependence; Z92.21 Personal history of antineoplastic chemotherapy
CPT/HCPCS: 36415; 36591; 71045; 71046; 74176; 80048; 80053; 81001; 82728; 83540; 83550; 83605; 83735; 85025; 86850; 86900; 86901; 86920; 86922; 87040; 87077; 87086; 87088; 87186; 87631; 94762; 97802; 99284; J2020; J2185; J7030; J7050; P9016; A4216; J2405; J2916; J3490

== ENCOUNTER 2024-01-15 13:44 | Outpatient (CLI) | payer MEDICARE, OTHER, SELFPAY ==
[2024-01-15 13:54] LABS: Hematocrit 29.4 % (37-47); Hemoglobin 9.1 g/dL (12.0-15.0); Mean Corpuscular Hgb 28.9 pg (27.0-32.0); Mean Corpuscular Volume 93.3 fL (81-99); Mean Platelet Vol. 9.3 fl (6.2-12.0); Platelet Count 562 K/mm3 (150-450); RBC Distribution Width CV 16.3 % (11.6-14.6); RBC Distribution Width SD 53.5 fl (35.1-43.9); Red Blood Count 3.15 M/mm3 (4.2-5.4); White Blood Count 4.9 K/mm3 (4.4-11.0)
[2024-01-15 14:21] LABS: AST(SGOT) 11 U/L (15-37); Alanine Aminotransfer ALT/SGPT < 6 U/L (13-56); Albumin, Serum 2.7 g/dL (3.2-5.0); Alkaline Phosphatase 147 U/L (45-117); Anion Gap 5 (5-15); BUN 15 mg/dL (7-18); BUN/Creat Ratio 9.8 RATIO (10-20); Bilirubin, Direct 0.13 mg/dL (0.00-0.30); Calcium,Total 8.8 mg/dL (8.5-10.1); Chloride 109 mmol/L (98-107); Creatinine, Serum 1.53 mg/dL (0.55-1.02); EST Glomerular Filtration Rate 36 mL/min (>60); Est Glom Filt Rate - Afr Amer 43 mL/min (>60); Globulin 4.1 g/dL (2.2-4.2); Glucose 70 mg/dL (74-106); Potassium 4.5 mmol/L (3.5-5.1); Protein, Total 6.8 g/dL (6.4-8.2); Sodium Level 138 mmol/L (136-145)
== END 2024-01-15 23:59 | disposition home or self-care (01) ==
LOC: LABSPEC 13:46
PROVIDERS: PCP Family Medicine; Referring Provider Internal Medicine Infectious Disease; Visit Provider Internal Medicine Infectious Disease
DX: A41.81 Sepsis due to Enterococcus (principal)
CPT/HCPCS: 80048; 80076; 85027

== ENCOUNTER 2024-02-12 08:43 | Outpatient (CLI) | payer MEDICARE, OTHER, SELFPAY ==
[2024-02-12] VITALS (7 sets, daily range): BP systolic 125–147; BP diastolic 63–74; PULSE 93–113; RESP 16; TEMP 36.7–37.1; O2SAT 99–100; BMI 22.7
== END 2024-02-12 23:59 | disposition home or self-care (01) ==
LOC: MEDOUTP 08:44
PROVIDERS: PCP Family Medicine; Referring Provider Internal Medicine Hematology & Oncology; Visit Provider Internal Medicine Hematology & Oncology
DX: D64.81 Anemia due to antineoplastic chemotherapy (principal); C20 Malignant neoplasm of rectum
CPT/HCPCS: 36430; 86850; 86900; 86901; 86920; 86922; J7040; P9016; A4216

== ENCOUNTER 2024-02-21 08:45 | Emergency (ER) | payer MEDICARE, OTHER, SELFPAY ==
[2024-02-21 08:46] VITALS: BP 147/90; PULSE 99; RESP 14; TEMP 36.2; O2SAT 98; BMI 23.0
[2024-02-21] MEDS: 0.9% Normal Saline (1000mL) 1,000 ML 999 ML IV (10:39)
[2024-02-21] MEDS: Ondansetron 4 MG/2 ML Vial IV (10:39)
[2024-02-21 10:42] VITALS: BP 137/82; PULSE 80; RESP 16; O2SAT 98
[2024-02-21 10:47] LABS: Absolute Lymphocyte Count 0.64 X10^3/uL (0.83-4.51); Absolute Neutrophil Count 7.2 X10^3/uL (2.0-7.7); Basophil# 0.03 X10^3/uL; Basophil% 0.4 % (0-1); Eosinophil# 0.01 X10^3/uL; Eosinophils% 0.1 % (0-5); Hematocrit 31.3 % (37-47); Lymphocyte # 0.64 X10^3/ul (0.83-4.51); Lymphocyte % 7.5 % (19-41); Mean Corp Hgb Conc 31.9 g/dL (32-36); Mean Corpuscular Volume 90.7 fL (81-99); Mean Platelet Vol. 8.8 fl (6.2-12.0); Monocyte# 0.41 X10^3/uL; Monocyte% 4.8 % (0-10); NRBC Flagged by Analyzer 0 % (0-5); Neutrophil # 7.22 X10^3/uL (2.7-7.7); Neutrophil % 85.1 % (47-70); Platelet Count 528 K/mm3 (150-450); RBC Distribution Width CV 15.8 % (11.6-14.6); RBC Distribution Width SD 50.8 fl (35.1-43.9); Red Blood Count 3.45 M/mm3 (4.2-5.4); White Blood Count 8.5 K/mm3 (4.4-11.0)
[2024-02-21 11:21] LABS: ALB/GLOB Ratio 0.7 RATIO (0.9-2.4); AST(SGOT) 15 U/L (15-37); Alanine Aminotransfer ALT/SGPT 8 U/L (13-56); Albumin, Serum 2.9 g/dL (3.2-5.0); Alkaline Phosphatase 135 U/L (45-117); Anion Gap 7 (5-15); BUN 25 mg/dL (7-18); BUN/Creat Ratio 12.8 RATIO (10-20); Calcium,Total 9.2 mg/dL (8.5-10.1); Chloride 107 mmol/L (98-107); Creatinine, Serum 1.96 mg/dL (0.55-1.02); EST Glomerular Filtration Rate 27 mL/min (>60); Est Glom Filt Rate - Afr Amer 32 mL/min (>60); Globulin 4.3 g/dL (2.2-4.2); Glucose 105 mg/dL (74-106); Potassium 4.6 mmol/L (3.5-5.1); Protein, Total 7.2 g/dL (6.4-8.2); Sodium Level 135 mmol/L (136-145)
--- NOTE | 2024-02-21 11:47 | CT_ITS ---
STUDY: CT ABDOMEN AND PELVIS WITHOUT CONTRAST REASON FOR EXAM: Female, 73 years old. Abdominal pain, decreased ostomy output RADIATION DOSAGE (If Supplied By Facility): CTDIvol = ( 6.58 ) mGy, DLP = ( 337.23 ) mGycm TECHNIQUE: Transaxial images were obtained from the dome of the diaphragm to the symphysis pubis without oral contrast, and without intravenous contrast. Sagittal and coronal images were reconstructed. Individualized dose optimization techniques were used for this CT. COMPARISON: Comparison is made with prior study dated January 07, 2024. FINDINGS: Multiple pulmonary nodules are seen at the lung bases. These were not well seen on prior study due to the bibasilar infiltrates. Coronary artery calcification. Normal liver. Mildly distended gallbladder. Densities are seen within the gallbladder lumen suggestive of a gallstones. Normal spleen. Normal pancreas. Normal bilateral adrenal glands. Bilateral nephrostomy catheters seen. Normal visualized stomach. The patient is status post right hemicolectomy. Ileostomy is seen in the right lower quadrant. There is evidence of a sigmoid diverticulosis. There has been resection of the rectum. Stable increased markings in the presacral space. Normal abdominal aorta. Normal inferior vena cava. Normal retroperitoneum. Normal urinary bladder. Normal abdominal wall. There are diffuse degenerative changes of the visualized lumbar spine. Stable sclerotic changes seen in the sacrum bilaterally. This may be related to patient''s history of prior radiation therapy. CT/Abdomen/Pelvis without Cont IMPRESSION: Multiple bilateral pulmonary nodules. Status post right hemicolectomy and ileostomy in the right lower quadrant. Surgical resection of the rectum with the persistent increased markings in the presacral space. Mildly dilated gallbladder with low-level densities within the suggestive possible gallstones or sludge. Electronically Signed: Doron Doyle MD at 12:28 EDT ,
[2024-02-21 12:00] VITALS: BP 136/81; PULSE 68; RESP 16; O2SAT 100
--- NOTE | 2024-02-21 12:52 | ED.VIS.GI ---
HPI HPI - GI History of Present Illness Chief Complaint: Constipation Informant: patient Narrative Narrative: Patient is a 73-year-old female with significant surgical medical history including metastatic colon cancer to the lungs with colon resection and ostomy, hydronephrosis requiring bilateral nephrostomy tubes and chronic anticoagulation on Eliquis and currently on oral chemotherapy with Lonsurf presenting with decreased ostomy output as well as nausea and crampy abdominal pain. Patient states this symptom started yesterday. She notes yesterday she had a lot of liquid output from her ostomy but had taken Imodium about 2 days before. She did not have any significant ostomy output overnight and into this morning. She notes she normally empties her bag 3-4 times a day. She had some crampy abdominal pain associated nausea. She came to the ER for further evaluation. She notes that last night she switched to a liquid diet because she looked up her symptoms online. She does note that she has had good urine output from her nephrostomy tubes. She is been compliant with her chemotherapy. She did have a blood transfusion about a week ago for hemoglobin 6.3 and notes that her last creatinine was around 2 which seems to be her new baseline. She denies any other complaints at this time. Denies any black or blood in her ostomy. Patient is noted that upon arrival to the ER she has noted that she has started to have stool output again in her ostomy bag. [facility] Medical History Bilateral ureteral obstruction Chronic kidney disease Colon cancer Kidney disease Chronic indwelling Dennis catheter Former smoker Pulmonary embolism History of colon cancer Ureteral stent present Bacteremia due to Klebsiella pneumoniae Bilateral hydronephrosis Anemia MAJO (acute kidney injury) Sepsis History of colon cancer Acute dehydration UTI (urinary tract infection) Acidosis, lactic Sinus tachycardia by electrocardiography Anticoagulant long-term use Complicated UTI (urinary tract infection) Fever in adult Urinary retention Bilateral pulmonary embolism Metabolic acidosis 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 Peritoneal metastases Acid reflux s/p port placement Encounter for adjustment or management of vascular access device Adenocarcinoma of cecum Home Medications ?Medication ?Instructions ?Recorded ?Last Taken ?Type omeprazole 20 mg capsule,delayed 40 mg PO DAILY ACID REFLUX 01/12/17 09/27/23 History release loperamide 2 mg capsule 2 mg PO Q6H PRN DIARRHEA 08/01/23 09/27/23 History loratadine 10 mg tablet (Claritin) 10 mg PO DAILY ALLERGIES 08/01/23 09/27/23 History amlodipine 5 mg tablet 5 mg PO DAILY BLOOD PRESSURE 09/11/23 09/27/23 History apixaban 5 mg tablet (Eliquis) 5 mg PO BID BLOOD THINNER 09/11/23 11/05/23 09:00 History magnesium 200 mg tablet 400 mg PO DAILY supplement 11/05/23 Unknown History trifluridine 20 mg-tipiracil 8.19 1 tab PO BID 01/03/24 Unknown History mg tablet (Lonsurf) Allergy/AdvReac Type Severity Reaction Status Date / Time No Known Allergies Allergy Verified 02/21/24 08:47 Family History Mother Hypertension Father Melanoma Brother Melanoma Aunt Breast cancer Surgical History H/O: hysterectomy History of appendectomy History of bowel resection Hx of ileostomy History of s/p port placement (~12/06/18) S/P laparoscopic colectomy S/P colectomy Social History Smoking Status: Former smoker alcohol intake: current alcohol intake frequency: holidays/special occasions only substance use type: does not use caffeine: Yes what type of physical activity do you participate in: walking and weight training frequency: daily seatbelt use: always do you feel safe at home: Yes additional social history: - [employer]-Retired 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[employer] [facility] Constitutional Constitutional ED: Denies chills or fever(s) Gastrointestinal Gastrointestinal: Reports abdominal pain, constipation, nausea and other Details: Decreased ostomy output ; Denies vomiting Musculoskeletal Musculoskeletal: Denies arthralgias or myalgias Neurologic Neurologic: Denies headache(s) Hematologic/Lymphatic Hematologic/Lymphatic: Reports easy bleeding and easy bruising EXAM Physical Exam Const Vital Signs: 02/21/24 08:46 02/21/24 10:42 02/21/24 12:00 Temperature 97.1 F L Temperature Source Temporal Pulse Rate 99 80 68 Respiratory Rate 14 16 16 Blood Pressure 147/90 H 137/82 H 136/81 H Blood Pressure Mean 109 100 99 Pulse Ox 98 98 100 Oxygen Delivery Method Room Air Room Air Room Air Positive well nourished and well developed General Appearance ED: well developed and NAD; Negative for pallor HEENT Reports dry mucous membranes normocephalic and atraumatic Mouth ED: Yes dry mucous membranes Mouth: dry mucous membranes Eyes PERRL and EOMs intact bilaterally Neck supple Chest Wall Chest Narrative: [place] present in the left anterior chest wall Resp normal respiratory effort and clear to auscultation bilaterally Cardio regular rate and regular rhythm GI non-distended GI Narrative: Colostomy with stool output that is brown present in the right mid abdomen. Auscultation: normoactive bowel sounds Palpation: soft and tender suprapubic Extremity full ROM General Extremety ED: Negative for edema General Extremity: Negative for edema Neuro Sensorium / Orientation: alert Motor Exam: Negative for general weakness Psych mental status grossly normal and thought process normal Skin no wounds General Skin Exam: Negative for pallor MDM MDM MDM Narrative Medical decision making narrative: Patient is evaluated for crampy abdominal pain, nausea and decreased colostomy output. She appears nontoxic in no acute distress. Upon arrival to the ER she is actually started to have output of her ostomy again. I visualized her stoma through the ostomy and it appears healthy and pink. She is not having tenderness of the stoma. She does have some mild tenderness to the midline of her colostomy in her abdomen but she is not peritoneal. Differential includes partial small bowel obstruction, colitis, breakdown of the anastomosis and constipation. Will obtain basic lab work as well as CT imaging. Patient is given IV morphine, Zofran and IV fluids in the emergency room for symptom relief. Lab work is largely stable. She does not have a leukocytosis or neutropenia. Her hemoglobin is improved at 10.0 and appears to be trending up from prior lab work that was reviewed. Her creatinine is also stable is now at 1.96. She does not have any significant electrolyte derangement. CT of the abdomen and pelvis shows multiple surgical changes and a mildly dilated gallbladder with low-level densities within the suggestive possible gallstones. Patient's presentation is not consistent with acute cholecystitis or symptomatic cholelithiasis however patient is informed that she can follow-up outpatient as needed for a right upper quadrant ultrasound and given signs and symptoms of biliary colic/cholecystitis. Patient is able to take p.o. with her water in the ER. She states he is feeling better. She continues to have ostomy output in the emergency room. Will be discharged home with outpatient follow-up and return precautions. She is agreeable with this plan of care. History & Record Review Additional record(s) reviewed:: Prior labs Lab Data Attestation: I reviewed the patient's lab results. Labs: Laboratory Results - last 24 hr 02/21/24 10:32 WBC 8.5 RBC 3.45 L Hgb 10.0 L Hct 31.3 L MCV 90.7 MCH 29.0 MCHC 31.9 L RDW Std Deviation 50.8 H RDW Coeff of Ismael 15.8 H Plt Count 528 H MPV 8.8 Immature Gran % (Auto) 2.100 H Neut % (Auto) 85.1 H Lymph % (Auto) 7.5 L Gilchrist % (Auto) 4.8 Eos % (Auto) 0.1 Baso % (Auto) 0.4 Absolute Neuts (auto) 7.2 Absolute Lymphs (auto) 0.64 L Nucleated RBC % 0 Sodium 135 L Potassium 4.6 Chloride 107 Carbon Dioxide 21.0 Anion Gap 7 BUN 25 H Creatinine 1.96 H Estim Creat Clear Calc 25.60 Est GFR (MDRD) Af Amer 32 L Est GFR (MDRD) Non-Af 27 L BUN/Creatinine Ratio 12.8 Glucose 105 Calcium 9.2 Total Bilirubin 0.30 AST 15 ALT 8 L Alkaline Phosphatase 135 H Total Protein 7.2 Albumin 2.9 L Globulin 4.3 H Albumin/Globulin Ratio 0.7 L Radiography Diagnostic Testing: Clinical Impression(s) from Imaging Studies Abdomen/Pelvis CT 02/21/24 11:47 IMPRESSION: Multiple bilateral pulmonary nodules. Status post right hemicolectomy and ileostomy in the right lower quadrant. Surgical resection of the rectum with the persistent increased markings in the presacral space. Mildly dilated gallbladder with low-level densities within the suggestive possible gallstones or sludge. Electronically Signed: Doron Doyle MD at 12:28 EDT , Discharge Plan Triage Chief Complaint: Constipation ED Provider: Godman,Cathleen Dx/Rx/DC Orders Clinical Impression: Abdominal pain, History of colostomy, Nausea Prescriptions: No Action omeprazole 20 MG capsule 40 mg PO DAILY magnesium 200 mg tablet 400 mg PO DAILY loperamide 2 mg capsule 2 mg PO Q6H PRN (Reason: DIARRHEA ) loratadine [Claritin] 10 mg tablet 10 mg PO DAILY Eliquis 5 mg tablet 5 mg PO BID amlodipine 5 mg tablet 5 mg PO DAILY Rx Instructions: Hold for SBP less than 130 mmHg Lonsurf 20-8.19 mg tablet 1 tab PO BID Primary Care Provider: Adrián Mckee Referrals: Adrián Mckee MD [Primary Care Provider] - Activity Restrictions/Additional Instructions: Please follow-up with your surgeon/oncologist. Your workup is largely normal today with no signs of acute obstruction. You have questionable gallstones I do not think there contribute your presentation today. If you have pain in the right upper quadrant or have increased pain with eating fatty or fried foods either return to emergency room or follow-up with your surgeon. Print Language: Nicaraguan Disposition Disposition: Home, Self Care Discharge Date/Time: 02/21/24 13:19
== END 2024-02-21 13:19 | disposition home or self-care (01) ==
PROVIDERS: Emergency Provider Emergency Medicine; PCP Family Medicine; Visit Provider Emergency Medicine
DX: K59.00 Constipation, unspecified (principal); C78.00 Secondary malignant neoplasm of unspecified lung; Z93.3 Colostomy status; C18.9 Malignant neoplasm of colon, unspecified; Z87.891 Personal history of nicotine dependence; Z79.899 Other long term (current) drug therapy
CPT/HCPCS: 96361; 96374; 96375; 99282; 36591; 74176; 80053; 85025; J7030; A4216; J2405

== ENCOUNTER 2024-02-23 16:00 | Inpatient (IN) | payer MEDICARE, OTHER, SELFPAY ==
[2024-02-23] VITALS (7 sets, daily range): BP systolic 97–120; BP diastolic 54–67; PULSE 92–116; RESP 16–18; TEMP 36.1–37.9; O2SAT 96–99; BMI 22.7
--- NOTE | 2024-02-23 16:22 | EDS_ITS ---
HPI <PAYAL Oliver - Last Filed: 02/23/24 18:50> History of Present Illness Chief Complaint: Fever Narrative Narrative: Patient is a 73-year-old female that is on Eliquis history of pulmonary embolus, hypertension, currently getting treated for colon cancer. Patient did have an ileostomy placed April 2023. Patient sees Dr. Whyte, she is currently under his care getting oral chemotherapy, she is in the middle of her dosing. States over the last 2 to 3 days she has been feeling more tired, today she had a fever of 102, took Tylenol as then called the office that told her to come to the emergency primary. She does have a cough that is getting worse. She is concerned about possible UTI and possible URI. PFS <PAYAL Oliver - Last Filed: 02/23/24 18:50> [facility] Medical History Bilateral ureteral obstruction Chronic kidney disease Colon cancer Kidney disease Chronic indwelling Dennis catheter Former smoker Pulmonary embolism History of colon cancer Ureteral stent present Bacteremia due to Klebsiella pneumoniae Bilateral hydronephrosis Anemia MAJO (acute kidney injury) Sepsis History of colon cancer Acute dehydration UTI (urinary tract infection) Acidosis, lactic Sinus tachycardia by electrocardiography Anticoagulant long-term use Complicated UTI (urinary tract infection) Fever in adult Urinary retention Bilateral pulmonary embolism Metabolic acidosis 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 Peritoneal metastases Acid reflux s/p port placement Encounter for adjustment or management of vascular access device Adenocarcinoma of cecum Home Medications ?Medication ?Instructions ?Recorded ?Last Taken ?Type omeprazole 20 mg capsule,delayed 40 mg PO DAILY ACID REFLUX 01/12/17 09/27/23 History release loperamide 2 mg capsule 2 mg PO Q6H PRN DIARRHEA 08/01/23 09/27/23 History loratadine 10 mg tablet (Claritin) 10 mg PO DAILY ALLERGIES 08/01/23 09/27/23 History amlodipine 5 mg tablet 5 mg PO DAILY BLOOD PRESSURE 09/11/23 09/27/23 History apixaban 5 mg tablet (Eliquis) 5 mg PO BID BLOOD THINNER 09/11/23 11/05/23 09:00 History trifluridine 20 mg-tipiracil 8.19 1 tab PO BID 01/03/24 Unknown History mg tablet (Lonsurf) Allergy/AdvReac Type Severity Reaction Status Date / Time No Known Allergies Allergy Verified 02/23/24 16:01 Family History Mother Hypertension Father Melanoma Brother Melanoma Aunt Breast cancer Surgical History H/O: hysterectomy History of appendectomy History of bowel resection Hx of ileostomy History of s/p port placement (~12/06/18) S/P laparoscopic colectomy S/P colectomy Social History Smoking Status: Former smoker alcohol intake: current alcohol intake frequency: holidays/special occasions only substance use type: does not use caffeine: Yes what type of physical activity do you participate in: walking and weight training frequency: daily seatbelt use: always do you feel safe at home: Yes additional social history: - [employer]-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 Positive fever, chills, weakness Eyes: Negative for vision loss, vision change, double vision ENT: Negative for any sore throat, ear pain, congestion Cardiovascular: Negative for any chest pain, tightness, palpitations Respiratory: Negative for any sputum production, hemoptysis, dyspnea, dyspnea on exertion, orthopnea. Positive for cough Gastrointestinal: Negative for any abdominal pain, nausea, vomiting, diarrhea, constipation, blood in stool, blood in vomit : Negative for any urinary frequency, dysuria, retention, blood in urine Muscle skeletal: Negative for any neck pain, back pain Neurological: Negative for any headache, syncope, dizziness Skin: Negative for any rashes, itching, abrasions, lacerations Psychiatric: Negative for any depression, anxiety, stress, suicidal ideation, homicidal ideation Hematologic: Negative for any excessive bruising, easy bleeding EXAM <PAYAL Oliver - Last Filed: 02/23/24 18:50> Physical Exam Narrative Exam Narrative: Vital signs reviewed. Patient is oral temp is 99.0 this is after antipyretics. Patient alert orient x 4 HEET: Head normocephalic atraumatic, TMs clear bilaterally. Posterior pharynx is clear, dry mucous membranes. Nares clear bilaterally. Neck: Supple with no lymphadenopathy or tenderness. No signs of meningismus. Cardiac: Regular rate and rhythm no murmurs gallops or rubs, equal peripheral pulses bilaterally. Respiratory: Lungs clear to auscultation bilaterally. No chest tenderness. Abdomen: Soft, nontender, nondistended. No abdominal bruit or pulsatile masses. No hepatosplenomegaly. Patient does have ileostomy, patient does have nephrostomy tubes Extremities: No peripheral edema, no signs of gross trauma or deformity. Active full range of motion of all extremities. Neuro: Cranial nerves II through XII intact, no focal neurological deficits. Skin: Clean dry and intact with no rash, purpura, petechiae, vesicles or pustules. Backs/flank: No CVA tenderness, no midline spinal tenderness, no deformity. Psych: Normal mood and affect. No SI, HI or acute psychosis. Const Vital Signs: 02/23/24 16:01 02/23/24 16:28 02/23/24 17:19 Temperature 97 F L 98.5 F Temperature Source Temporal Oral Pulse Rate 116 H 92 Respiratory Rate 18 16 Respiratory Pattern Normal Blood Pressure 97/66 116/60 Blood Pressure Mean 76 78 Pulse Ox 98 96 Oxygen Delivery Method Room Air Room Air 02/23/24 18:01 Temperature Temperature Source Pulse Rate 96 Respiratory Rate 16 Respiratory Pattern Blood Pressure 104/61 Blood Pressure Mean 75 Pulse Ox 97 Oxygen Delivery Method Room Air <Dr. Mark Graves MD - Last Filed: 02/23/24 20:21> Physical Exam Const Vital Signs: 02/23/24 16:01 02/23/24 16:28 02/23/24 17:19 Temperature 97 F L 98.5 F Temperature Source Temporal Oral Pulse Rate 116 H 92 Respiratory Rate 18 16 Respiratory Pattern Normal Blood Pressure 97/66 116/60 Blood Pressure Mean 76 78 Pulse Ox 98 96 Oxygen Delivery Method Room Air Room Air 02/23/24 18:01 Temperature Temperature Source Pulse Rate 96 Respiratory Rate 16 Respiratory Pattern Blood Pressure 104/61 Blood Pressure Mean 75 Pulse Ox 97 Oxygen Delivery Method Room Air JENY <PAYAL Oliver - Last Filed: 02/23/24 18:50> JENY Lab Data Labs: Laboratory Results - last 24 hr 02/23/24 02/23/24 16:30 18:55 WBC 15.5 H RBC 3.02 L Hgb 8.7 L Hct 27.1 L MCV 89.7 MCH 28.8 MCHC 32.1 RDW Std Deviation 51.9 H RDW Coeff of Ismael 16.0 H Plt Count 380 MPV 9.1 Neut % (Auto) Not Reportable Absolute Neuts (auto) 15.5 H Absolute Lymphs (auto) 0.46 L Total Counted 100 Neutrophils % (Manual) 95 H Band Neutrophils % 1 Lymphocytes % (Manual) 3 L Monocytes % (Manual) 1 Diff Path Review May foll Platelet Estimate ADEQUATE RBC Morphology N CHROM Anisocytosis RARE Macrocytosis RARE Sodium 133 L Potassium 4.2 Chloride 103 Carbon Dioxide 17.0 L Anion Gap 13 BUN 40 H Creatinine 3.59 H Estim Creat Clear Calc 13.98 Est GFR (MDRD) Af Amer 16 L Est GFR (MDRD) Non-Af 13 L BUN/Creatinine Ratio 11.1 Glucose 126 H Lactic Acid 1.6 Calcium 8.9 Total Bilirubin 0.60 AST 19 ALT < 6 L Alkaline Phosphatase 172 H Total Protein 7.2 Albumin 2.7 L Globulin 4.5 H Albumin/Globulin Ratio 0.6 L Urine Color Yellow Urine Clarity Sl. Cloudy Urine pH 5.0 Ur Specific [place] 1.010 Urine Protein 30 H Urine Glucose (UA) Normal Urine Ketones Negative Urine Occult Blood 150 H Urine Nitrite Positive H Urine Bilirubin Negative Urine Urobilinogen Normal Ur Leukocyte Esterase 500 H Urine RBC 0 SEEN Urine WBC 25-50 SEEN Ur Squamous Epith Cells 0 SEEN Urine Bacteria 1+ Fine Granular Casts 0-5 SEEN Urine Mucus 0 SEEN Radiography Diagnostic Testing: Clinical Impression(s) from Imaging Studies Chest X-Ray 02/23/24 18:24 IMPRESSION: No acute consolidative process. Extensive bilateral pulmonary nodules which are poorly seen, consistent with metastatic disease. Electronically Signed: Ramón Brunson MD at 19:59 EDT , Treatment and Re-Evaluation :: Differential diagnosis includes however is not limited to: Neutropenic fever, UTI, reaction to chemotherapy, worsening colon cancer, community-acquired pneumonia, viral syndrome such as COVID-19 RSV or influenza Patient appears to be in no obvious respiratory distress, patient's vitals show slight low blood pressure 97/66, slight tachycardia with a rate of 116 bpm. Patient was 99.0 Fahrenheit oral temperature. Patient received a full septic workup secondary to the patient being on chemotherapy and having a fever of 102.0 at home. Patient is have a cough is also concern for UTI. Patient will receive a two-view chest x-ray, IV fluids. He will receive IV Zofran for nausea. All radiologic examinations were read, reviewed by the emergency department attending. From these reads, a plan of care will be put in place. Patient's laboratory values, patient has a leukocytosis with a white blood count of 15.5, patient is not neutropenic. Patient's hemoglobin is 8.7, however this is baseline for the patient. Patient's chemistries is consistent with dehydration with a CO2 of 17, patient's creatinine is 3.59, this is elevated, 2 days ago, the patient's creatinine is 1.96, last week of December, is 1.53 this is a significant jump. Albumin is low at 2.7, alkaline phosphatase elevated 172 over this seems to be ongoing since late December 2023. Currently waiting for urinalysis, chest x-ray, patient will receive IV bank and Zosyn, as well as IV fluids. Patient will need to be admitted to the hospital. Patient's x-ray does show a right-sided lower lobe pneumonia. I reached out to the hospitalist as well as oncology. Spoke with hospitalist who is agreeable. Again patient started on vancomycin and Zosyn. Patient stable for admission <Dr. Mark Graves MD - Last Filed: 02/23/24 20:21> [facility] Narrative Medical decision making narrative: I have personally performed a face to face assessment of the patient and have reviewed the SAMEER Note. I performed a substantive portion of the visit including all aspects of the following. My hernandez findings include: History is remarkable patient on oral chemo twice a day. She started this course on Sunday. She presents because of temperature greater than 102. She states she has a cough. She reports decreased output from her right nephrostomy tube. She denies back or flank pain. She denies vomiting or diarrhea. She denies headache. She has full phobia or stiffness of her neck. Patient has history of colon cancer. She also has history of hypertension and allergies. B ased on medication she probably has GERD. She is on anticoagulant Eliquis 5 mg twice daily. Exam is vital signs remarkable for tachycardia. She is afebrile. She did take Tylenol approximately 1.5 hours prior to presentation. She did contact her oncologist. Dr. Tramaine Phillips is on-call for Dr. Ned Whyte. He recommended that she come to the emergency department. HEENT exam is unremarkable. Neck is supple. Lungs reveal no wheeze rales rhonchi. Heart is regular and rapid. There is no murmur, gallop or rub. Nephrostomy tubes are in position. Abdomen is benign. Medical Decision Making need to evaluate for neutropenia. Neutropenia order set was initiated. Antibiotics were not started at this time. Based on history suspect respiratory source. Will also need to evaluate for urologic since she has nephrostomy tube on the right and left. She also has an ileostomy. There is no watery material noted that has mucus or blood. Other additions or changes: Source is unknown as of yet and patient has elevated white count with shift including 95% segs 1 band and 3 lymphocytes we will start on vancomycin and Zosyn for unknown source. This will cover both respiratory and urologic. Lab Data Attestation: I reviewed the patient's lab results. Lab results narrative: White count is elevated with shift. Patient has a acute on chronic anemia. Hemoglobin is 8.7. She will not require transfusion. BUN/creatinine are elevated at 40 and 3.59. There is significant jump in creatinine from 2 days ago. Creatinine on January was 1.9. Glucose is slightly elevated 126. Alkaline phosphatase is slightly elevated 172. Patient does have hypoalbuminemia with albumin of 2.7. Labs: Laboratory Results - last 24 hr 02/23/24 02/23/24 16:30 18:55 WBC 15.5 H RBC 3.02 L Hgb 8.7 L Hct 27.1 L MCV 89.7 MCH 28.8 MCHC 32.1 RDW Std Deviation 51.9 H RDW Coeff of Ismael 16.0 H Plt Count 380 MPV 9.1 Neut % (Auto) Not Reportable Absolute Neuts (auto) 15.5 H Absolute Lymphs (auto) 0.46 L Total Counted 100 Neutrophils % (Manual) 95 H Band Neutrophils % 1 Lymphocytes % (Manual) 3 L Monocytes % (Manual) 1 Diff Path Review May foll Platelet Estimate ADEQUATE RBC Morphology N CHROM Anisocytosis RARE Macrocytosis RARE Sodium 133 L Potassium 4.2 Chloride 103 Carbon Dioxide 17.0 L Anion Gap 13 BUN 40 H Creatinine 3.59 H Estim Creat Clear Calc 13.98 Est GFR (MDRD) Af Amer 16 L Est GFR (MDRD) Non-Af 13 L BUN/Creatinine Ratio 11.1 Glucose 126 H Lactic Acid 1.6 Calcium 8.9 Total Bilirubin 0.60 AST 19 ALT < 6 L Alkaline Phosphatase 172 H Total Protein 7.2 Albumin 2.7 L Globulin 4.5 H Albumin/Globulin Ratio 0.6 L Urine Color Yellow Urine Clarity Sl. Cloudy Urine pH 5.0 Ur Specific [place] 1.010 Urine Protein 30 H Urine Glucose (UA) Normal Urine Ketones Negative Urine Occult Blood 150 H Urine Nitrite Positive H Urine Bilirubin Negative Urine Urobilinogen Normal Ur Leukocyte Esterase 500 H Urine RBC 0 SEEN Urine WBC 25-50 SEEN Ur Squamous Epith Cells 0 SEEN Urine Bacteria 1+ Fine Granular Casts 0-5 SEEN Urine Mucus 0 SEEN Radiography Chest X-Ray - ED: 2 View and Read by ED Physician (Interpreted by me at 1841 for pneumonia right lower lobe. Cardiac silhouette size normal. Hilum is unremarkable. Osseous trucks unremarkable.) Diagnostic Testing: Clinical Impression(s) from Imaging Studies Chest X-Ray 02/23/24 18:24 IMPRESSION: No acute consolidative process. Extensive bilateral pulmonary nodules which are poorly seen, consistent with metastatic disease. Electronically Signed: Ramón Brunson MD at 19:59 EDT Reading Location ID and State: [facility] / [place] Tel , Service support , <Dr. 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 Tramaine johnson) and Arranging Admission or Transfer Discharge Plan Dx/Rx/DC Orders Clinical Impression: Right lower lobe pneumonia, Sinus tachycardia seen on playground monitor, Acute on chronic kidney failure, Sepsis with acute organ dysfunction, Acute dehydration, Adenocarcinoma of colon, Community acquired pneumonia, Colon cancer, Effect of immunosuppressant therapy, Cough, Cystitis Disposition Disposition: Acute Care [facility]
[2024-02-23 16:38] LABS: Hematocrit 27.1 % (37-47); Hemoglobin 8.7 g/dL (12.0-15.0); Mean Corp Hgb Conc 32.1 g/dL (32-36); Mean Corpuscular Hgb 28.8 pg (27.0-32.0); Mean Corpuscular Volume 89.7 fL (81-99); Mean Platelet Vol. 9.1 fl (6.2-12.0); POSITIVE COUNT YES; POSITIVE DIFFERENTIAL YES; POSITIVE MORPHOLOGY YES; Platelet Count 380 K/mm3 (150-450); RBC Distribution Width SD 51.9 fl (35.1-43.9); Red Blood Count 3.02 M/mm3 (4.2-5.4); White Blood Count 15.5 K/mm3 (4.4-11.0)
[2024-02-23 16:40] LABS: Differential Indicated MANUAL DIFF
[2024-02-23] MEDS: Ondansetron 4 MG/2 ML Vial IV (16:53)
[2024-02-23] MEDS: 0.9% Normal Saline (1000mL) 1,000 ML 999 ML IV (16:53)
[2024-02-23 17:03] LABS: Lactic Acid 1.6 mmol/L (0.4-1.9); Lymphocyte 3 % (19-41); Monocyte 1 % (0-10); Neutrophil-Band 1 % (0-5); Neutrophil-Segmented 95 % (47-70); Total Cells Counted 100 (MANUAL DIFF)
[2024-02-23 17:04] LABS: ALB/GLOB Ratio 0.6 RATIO (0.9-2.4); AST(SGOT) 19 U/L (15-37); Alanine Aminotransfer ALT/SGPT < 6 U/L (13-56); Albumin, Serum 2.7 g/dL (3.2-5.0); Alkaline Phosphatase 172 U/L (45-117); Anion Gap 13 (5-15); BUN 40 mg/dL (7-18); BUN/Creat Ratio 11.1 RATIO (10-20); Calcium,Total 8.9 mg/dL (8.5-10.1); Chloride 103 mmol/L (98-107); Creatinine, Serum 3.59 mg/dL (0.55-1.02); EST Glomerular Filtration Rate 13 mL/min (>60); Est Glom Filt Rate - Afr Amer 16 mL/min (>60); Estimated Creatinine Clearance 13.98 ml/min; Globulin 4.5 g/dL (2.2-4.2); Glucose 126 mg/dL (74-106); Potassium 4.2 mmol/L (3.5-5.1); Protein, Total 7.2 g/dL (6.4-8.2); Sodium Level 133 mmol/L (136-145)
[2024-02-23 17:05] LABS: Absolute Lymphocyte Count 0.46 X10^3/uL (0.83-4.51); Absolute Neutrophil Count 15.5 X10^3/uL (2.0-7.7)
[2024-02-23 17:06] LABS: Anisocytosis RARE; Macrocytosis RARE; Platelet Estimate ADEQUATE (ADEQ); Red Cell Morphology N CHROM NORMAL (NORM C&C)
[2024-02-23] MEDS: Piperacil/Tazobactam 4.5 GM in 0.9% Normal Saline (100mL MB+) 100 ML IV (17:39)
--- NOTE | 2024-02-23 18:24 | RAD_ITS ---
INDICATION: cough EXAMINATION/TECHNIQUE: X-RAY - XR Chest 2 Views COMPARISON: Chest x-ray 01/06/2024, CT abdomen and pelvis 02/21/2024 FINDINGS: LINES/DEVICES: Stable left-sided port. LUNGS: Scattered bilateral pulmonary nodules poorly seen. No consolidation. Vascular congestion or pleural effusion. Subsegmental atelectasis right lower lobe. MEDIASTINUM AND CARDIOVASCULAR STRUCTURES: Cardiac silhouette not enlarged. Central airways and mediastinal contour are unremarkable. BONES AND SOFT TISSUES: No acute changes. RAD/Chest PA and Lateral IMPRESSION: No acute consolidative process. Extensive bilateral pulmonary nodules which are poorly seen, consistent with metastatic disease. Electronically Signed: Ramón Brunson MD at 19:59 EDT ,
--- NOTE | 2024-02-23 18:46 | PCM.HP.STD ---
HPI - General General Date of Admission: 02/23/24 Date of Service: 02/23/24 Chief Complaint: Fever HPI Narrative SANTI NAM, is a 73 F with past medical history of essential hypertension, history of PE; on Eliquis, Chronic Anemia, GERD, history of metastatic adenocarcinoma of the Colon (2017); s/p laparoscopic right colectomy with ileostomy and PORT on chemotherapy, history of UTI with MAJO (October 02, 2023 treated with oral Linezolid); in the setting of CKD; stage III with baseline creatinine of ~1.8 mg/dL; s/p recent nephrostomy tubes placed with removal of her renal stents at the [facility] on October 15, 2023, she was recently admitted on 01/04/2024 for fever and abdominal pain And was found to have urinary tract infection with Enterobacter cloacae complex and twice daily. At the time she was changed to meropenem and linezolid. Since last 2 days she is complaining of ongoing fever, recorded to be 102 Fahrenheit this morning. Also associated nausea, anorexia. Since 2 days also her right nephrostomy drain is not flowing, she feels her fevers episodes are similar to her prior admission in December. She has a chronic cough with mucoid expectoration, no phlegm, no changes in sputum color, no blood in sputum. No shortness of breath She was given Zosyn, Zofran, IV fluids in the ED. COUNT INCLUDES THE [facility] Medical History Bilateral ureteral obstruction Chronic kidney disease Colon cancer Kidney disease Chronic indwelling Dennis catheter Former smoker Pulmonary embolism History of colon cancer Ureteral stent present Bacteremia due to Klebsiella pneumoniae Bilateral hydronephrosis Anemia MAJO (acute kidney injury) Sepsis History of colon cancer Acute dehydration UTI (urinary tract infection) Acidosis, lactic Sinus tachycardia by electrocardiography Anticoagulant long-term use Complicated UTI (urinary tract infection) Fever in adult Urinary retention Bilateral pulmonary embolism Metabolic acidosis 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 Peritoneal metastases Acid reflux s/p port placement Encounter for adjustment or management of vascular access device Adenocarcinoma of cecum Home Medications ?Medication ?Instructions ?Recorded ?Last Taken ?Type omeprazole 20 mg capsule,delayed 40 mg PO DAILY ACID REFLUX 01/12/17 09/27/23 History release loperamide 2 mg capsule 2 mg PO Q6H PRN DIARRHEA 08/01/23 09/27/23 History loratadine 10 mg tablet (Claritin) 10 mg PO DAILY ALLERGIES 08/01/23 09/27/23 History amlodipine 5 mg tablet 5 mg PO DAILY BLOOD PRESSURE 09/11/23 09/27/23 History apixaban 5 mg tablet (Eliquis) 5 mg PO BID BLOOD THINNER 09/11/23 11/05/23 09:00 History trifluridine 20 mg-tipiracil 8.19 1 tab PO BID 01/03/24 Unknown History mg tablet (Lonsurf) Allergy/AdvReac Type Severity Reaction Status Date / Time No Known Allergies Allergy Verified 02/23/24 16:01 Family History Mother Hypertension Father Melanoma Brother Melanoma Aunt Breast cancer Surgical History H/O: hysterectomy History of appendectomy History of bowel resection Hx of ileostomy History of s/p port placement (~12/06/18) S/P laparoscopic colectomy S/P colectomy Social History Smoking Status: Former smoker alcohol intake: current alcohol intake frequency: holidays/special occasions only substance use type: does not use caffeine: Yes what type of physical activity do you participate in: walking and weight training frequency: daily seatbelt use: always do you feel safe at home: Yes additional social history: - [employer]-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 Constitutional Constitutional: Reports anorexia, chills, fatigue and fever(s) Eyes Eyes: Denies blurry vision, change in eye color, change in vision, discharge from eye(s), double vision, erythema, eye pain, loss of vision or other ENT HEENT: Denies abnormal hearing, dysphagia, ear pain, epistaxis, headache(s), hearing loss, nasal congestion, nasal discharge, post nasal drip, sinus pressure, sore throat or other Cardiovascular Cardiovascular: Denies chest pain, claudication, dyspnea on exertion, edema, lightheadedness, orthopnea, palpitations, paroxysmal nocturnal dyspnea, rapid heart rate, syncope or other Respiratory/Chest Respiratory/Chest: Reports cough; Denies dyspnea, excessive phlegm production, hemoptysis, productive cough, shortness of breath at rest, shortness of breath with exertion, wheezing or other Gastrointestinal Gastrointestinal: Denies abdominal pain, coffee ground emesis, constipation, diarrhea, dyspepsia, hematemesis, hematochezia, loose stools, melena, nausea, vomiting or other Musculoskeletal Musculoskeletal: Denies arthralgias, back pain, joint pain, joint stiffness, joint swelling, myalgias, neck pain or other Neurologic Neurologic: Denies abnormal gait, abnormal speech, confusion, disequilibrium, dizziness, focal weakness, headache(s), numbness, paresthesias, seizure-like activity, seizures, syncope, tingling, tremor(s) or other Psychiatric Psychiatric: Denies anxiety, depression, homicidal ideation, suicidal ideation or other Endocrine Endocrinology: Denies change in body appearance, cold intolerance, excessive sweating, heat intolerance, polydipsia, polyuria or other Hematologic/Lymphatic Hematologic/Lymphatic: Denies anemia, easy bleeding, easy bruising, lymphadenopathy or other Allergic/Immunologic Allergic/Immunologic: Denies rhinitis, hives, eczemia, asthma or other Vital Signs Vital Signs Vital Signs: 02/23/24 16:01 02/23/24 16:28 02/23/24 17:19 Temperature 97 F L 98.5 F Temperature Source Temporal Oral Pulse Rate 116 H 92 Respiratory Rate 18 16 Respiratory Pattern Normal Blood Pressure 97/66 116/60 Blood Pressure Mean 76 78 Pulse Ox 98 96 Oxygen Delivery Method Room Air Room Air Weight Weight: 145 lb 6.4 oz Body Mass Index (BMI) 22.7 Physical Exam Const alert and oriented x3 HEENT normocephalic and head/scalp atraumatic Eyes PERRL and EOMs intact bilaterally Neck no lymphadenopathy Resp normal respiratory effort, no retractions, no use of accessory muscles and clear to auscultation bilaterally Cardio regular rate and regular rhythm GI normal to inspection, nondistended, normoactive bowel sounds GI Narrative: Bilateral drains in place Extremity normal to inspection, full ROM and no clubbing, cyanosis or edema Neuro oriented x3, moves all extremities and no focal motor deficits Psych affect normal Results Medical Records Data Attestation: I reviewed the patient's medical records Lab / Micro Data Attestation: I reviewed the patient's lab results. Lab results narrative: Leukocytosis with severe anemia, MAJO 02/23/24 16:30 02/23/24 16:30 Labs: Laboratory Results - last 24 hr 02/23/24 16:30: WBC 15.5 H, RBC 3.02 L, Hgb 8.7 L, Hct 27.1 L, MCV 89.7, MCH 28.8, MCHC 32.1, RDW Std Deviation 51.9 H, RDW Coeff of Ismael 16.0 H, Plt Count 380, MPV 9.1, Neut % (Auto) Not Reportable, Absolute Neuts (auto) 15.5 H, Absolute Lymphs (auto) 0.46 L, Total Counted 100, Neutrophils % (Manual) 95 H, Band Neutrophils % 1, Lymphocytes % (Manual) 3 L, Monocytes % (Manual) 1, Diff Path Review January, Platelet Estimate ADEQUATE, RBC Morphology N CHROM, Anisocytosis RARE, Macrocytosis RARE, Sodium 133 L, Potassium 4.2, Chloride 103, Carbon Dioxide 17.0 L, Anion Gap 13, BUN 40 H, Creatinine 3.59 H, Estim Creat Clear Calc 13.98, Est GFR (MDRD) Af Amer 16 L, Est GFR (MDRD) Non-Af 13 L, BUN/Creatinine Ratio 11.1, Glucose 126 H, Lactic Acid 1.6, Calcium 8.9, Total Bilirubin 0.60, AST 19, ALT < 6 L, Alkaline Phosphatase 172 H, Total Protein 7.2, Albumin 2.7 L, Globulin 4.5 H, Albumin/Globulin Ratio 0.6 L Micro: Microbiology 02/23/24 17:50 Mucosa - Nose SARS-CoV-2, Influenza & RSV (PCR) - Final Assessment & Plan Assessment/Plan (1) Acute on chronic kidney failure: PLAN: Plan 73-year-old female with prior history of colon cancer, bilateral nephrostomy tubes in place presents to the ED with concerns regarding fever, and was found to have leukocytosis with MAJO at presentation. She gives a history of decreased urine output since through her right nephrostomy tubes, and symptoms similar to her prior admission in December. The likely concerns include obstructive MAJO with urinary tract infection. Given her prior history of VRE we will start her on her antibiotics from last discharge. #Suspected acute cystitis: Has a prior history of VRE and Enterobacter cloacae infection -ID consult -IV meropenem and IV linezolid -Follow-up on urine and blood cultures -Urine analysis -CT abdomen pelvis to evaluate the position of the nephrostomy tubes -If displaced will need urology consult -IV LR started in the ED -Tab Tylenol 1 g as needed for fevers #MAJO on CKD: Suspect postobstructive due to displaced nephrostomy tube versus sepsis related MAJO -Follow-up as above with CT scan -IV fluids and monitor creatinine levels #Chronic cough: Less likely with illness of infection, no change in sputum -Follow-up on the read of the chest x-ray -Has a history of lung mets and suspect cough secondary to that # History of metastatic adenocarcinoma of the Colon (2018); s/p laparoscopic right colectomy with ileostomy and PORT on chemotherapy - Continue current therapy. # Essential hypertension - Hold scheduled antihypertensives until infection outlined in #1 has been neutralized. History of PE; on Eliquis, # Chronic Anemia - Likely due mainly to chronic kidney disease with hemoglobin of 8.9 g/dL present on admission. # GERD - Resume PPI. # History of PE on Eliquis - Resume Eliquis as previous. # DVT prophylaxis - Patient is already on apixaban will be continued. Charges/Coding Visit Charges Inpatient E&M: 47688 Init Hosp L2
[2024-02-23] MEDS: Vancomycin HCl 1,750 MG in 0.9% Normal Saline (500mL Bag) 500 ML 250 MG IV (18:50)
[2024-02-23 19:11] LABS: Mucous, Urine 0 SEEN /hpf (<or=2+); Red Blood Cells-Urine 0 SEEN /hpf (0-5); Squamous Epithelial Cells - UA 0 SEEN /hpf (5-10)
[2024-02-23 19:31] LABS: Color, Urine Yellow (Yellow); Glucose, Dipstick Normal (Normal); Ketone-Dipstick Negative (Negative); Leukocyte Esterase-Dipstick 500 /ul (Negative); Nitrite-Dipstick Positive (Negative); Occult Blood-Urine 150 /ul (Negative); Protein-Dipstick 30 mg/dl (Negative); Urine Bilirubin Dipstick Negative (Negative); Urine Clarity Sl. Cloudy (Clear); Urine Urobilinogen Normal (Normal)
[2024-02-23 19:48] LABS: Bacteria 1+ /hpf (None Seen); Fine Granular Cast- Urine 0-5 SEEN /lpf (0-5); White Blood Cells 25-50 SEEN /hpf (0-5)
--- NOTE | 2024-02-23 21:29 | CT_ITS ---
We are attempting to reach an attending provider to discuss findings. An addendum with communication details will be sent when the communication is complete. INDICATION: Prior nephrostomy tubes now with MAJO suspect obstr EXAMINATION: CT ABDOMEN AND PELVIS WITHOUT CONTRAST - CT Abdomen And Pelvis W/O Contrast Injection TECHNIQUE: Helically acquired images were obtained of the abdomen and pelvis without oral or IV contrast. A radiation dose optimization technique was used for this scan. IV Contrast dosage and agent: None. Oral contrast: None. COMPARISON: 02/21/2024 FINDINGS: LOWER CHEST: Stable numerous bilateral pulmonary nodules with atelectatic findings. No cardiomegaly or pericardial effusion. LIVER: Homogeneous. No focal mass. GALLBLADDER AND BILIARY TREE: No calcified gallstones. No gallbladder distension or wall edema. No intra- or extrahepatic biliary ductal dilation. PANCREAS: No focal cystic or solid mass. SPLEEN: Normal size without focal cystic or solid mass. ADRENAL GLANDS: No nodules. KIDNEYS AND URETERS: Bilateral nephrostomy tubes remain in place. Interval development right hydroureteronephrosis, no ureteral calculus identified. Distal right ureter not well demonstrated. No left hydronephrosis. PERITONEUM: No ascites or free air. BOWEL: Stable surgical changes of partial right hemicolectomy with right lower quadrant ileostomy and stable presacral soft tissue thickening. Resection of the rectum again noted. No stomach or bowel distension. Sigmoid diverticulosis without focal inflammatory bowel wall changes. LYMPH NODES: No enlarged mesenteric or retroperitoneal lymph nodes. VESSELS: Aorta is non-dilated. URINARY BLADDER: Nondistended. REPRODUCTIVE ORGANS: No pelvic masses. BONES: Stable. CT/Abdomen/Pelvis without Cont IMPRESSION: Interval development of right hydroureteronephrosis with bilateral percutaneous nephrostomy tubes in place. Etiology of the obstruction is not demonstrated. Retrograde study may be indicated. Stable pulmonary metastasis. Electronically Signed: Ramón Brunson MD at 1:05 EDT Reading Location ID and State: [facility] / [place] Tel , Service support ,
[2024-02-23] MEDS: 0.9% Normal Saline (500mL Bag) 500 ML 999 ML IV (21:52)
[2024-02-23] MEDS: Meropenem 2 GM in 0.9% Normal Saline (100mL Bag) 100 ML IV (22:46)
[2024-02-23] MEDS: Linezolid 600 MG 600 MG/300 ML BAG 200 MG IV (23:41)
[2024-02-23] MEDS: APIXABAN 5 MG TABLET PO (23:46)
[2024-02-23] MEDS: Acetaminophen 325 MG Tablet 650 MG PO (23:59)
[2024-02-24] VITALS (7 sets, daily range): BP systolic 111–138; BP diastolic 61–76; PULSE 87–109; RESP 16–19; TEMP 36.8–37.8; O2SAT 96–98
--- NOTE | 2024-02-24 01:29 | NURSING ---
CT scan results back. Will make Dr. Mckeon aware.
--- NOTE | 2024-02-24 07:47 | PN.HOSP_ITS ---
Reason for Visit Reason for Visit: Diagnoses Acute kidney failure, unspecified (02/23/24) Chronic kidney disease, unspecified (02/23/24) Objective Data Objective Data Vital Signs: Vital Signs Temp Pulse Resp BP Pulse Ox O2 Del Method 98.2 F 87 16 111/61 96 Room Air 02/24/24 03:11 02/24/24 03:11 02/24/24 03:11 02/24/24 03:11 02/24/24 03:11 02/24/24 03:11 Oxygen Delivery Method Room Air Weight: 145 lb Body Mass Index (BMI) 22.7 Intake & Output: Intake and Output for Last 24 Hours 02/22/24 02/23/24 02/24/24 23:59 23:59 23:59 Intake Total 2315.72 / 2315.72 409.28 / 409.28 Output Total 420 / 420 Balance 1895.72 / 1895.72 409.28 / 409.28 Lab / Micro Data 02/23/24 16:30 02/23/24 16:30 Labs: Laboratory Results - last 24 hr 02/23/24 16:30: WBC 15.5 H, RBC 3.02 L, Hgb 8.7 L, Hct 27.1 L, MCV 89.7, MCH 28.8, MCHC 32.1, RDW Std Deviation 51.9 H, RDW Coeff of Ismael 16.0 H, Plt Count 380, MPV 9.1, Neut % (Auto) Not Reportable, Absolute Neuts (auto) 15.5 H, A bsolute Lymphs (auto) 0.46 L, Total Counted 100, Neutrophils % (Manual) 95 H, Band Neutrophils % 1, Lymphocytes % (Manual) 3 L, Monocytes % (Manual) 1, Diff Path Review January, Platelet Estimate ADEQUATE, RBC Morphology N CHROM, Anisocytosis RARE, Macrocytosis RARE, Sodium 133 L, Potassium 4.2, Chloride 103, Carbon Dioxide 17.0 L, Anion Gap 13, BUN 40 H, Creatinine 3.59 H, Estim Creat Clear Calc 13.98, Est GFR (MDRD) Af Amer 16 L, Est GFR (MDRD) Non-Af 13 L, BUN/Creatinine Ratio 11.1, Glucose 126 H, Lactic Acid 1.6, Calcium 8.9, Total Bilirubin 0.60, AST 19, ALT < 6 L, Alkaline Phosphatase 172 H, Total Protein 7.2, Albumin 2.7 L, Globulin 4.5 H, A lbumin/Globulin Ratio 0.6 L 02/23/24 18:55: Urine Color Yellow, Urine Clarity Sl. Cloudy, Urine pH 5.0, Ur Specific [place] 1.010, Urine Protein 30 H, Urine Glucose (UA) Normal, Urine Ketones Negative, Urine Occult Blood 150 H, Urine Nitrite Positive H, Urine Bilirubin Negative, Urine Urobilinogen Normal, Ur Leukocyte Esterase 500 H, Urine RBC 0 SEEN, Urine WBC 25-50 SEEN, Ur Squamous Epith Cells 0 SEEN, Urine Bacteria 1+, Fine Granular Casts 0-5 SEEN, Urine Mucus 0 SEEN Micro: Microbiology 02/23/24 17:50 Mucosa - Nose SARS-CoV-2, Influenza & RSV (PCR) - Final Radiography Diagnostic Testing: Radiology Impression Chest X-Ray 02/23/24 18:24 IMPRESSION: No acute consolidative process. Extensive bilateral pulmonary nodules which are poorly seen, consistent with metastatic disease. Electronically Signed: Ramón Brunson MD at 19:59 EDT , Abdomen/Pelvis CT 02/23/24 21:29 IMPRESSION: Interval development of right hydroureteronephrosis with bilateral percutaneous nephrostomy tubes in place. Etiology of the obstruction is not demonstrated. Retrograde study may be indicated. Stable pulmonary metastasis. Electronically Signed: Ramón Brunson MD at 1:05 EDT , ADDENDUM: 02/24/24 0135 IMPRESSION: Interval development of right hydroureteronephrosis with bilateral percutaneous nephrostomy tubes in place. Etiology of the obstruction is not demonstrated. Retrograde study may be indicated. Stable pulmonary metastasis. N.B. : The above Results were Read Back by Ramón Brunson MD to BASSAM Mckee RN, and understanding confirmed on 02/24/2024 01:28:32 (ET). Electronically Signed: Ramón Brunson MD at 1:05 EDT Reading Location ID and State: [facility] / [place] Tel , Service support , Physical Exam Narrative Seen and examined. Patient has history of colon cancer metastatic nature to lungs, rectum and pelvic organs including vagina. She had partial resection of rectum and vaginal wall. This time admitted with high-grade fever 102 Fahrenheit last 2 to 3 days and was taking Tylenol. She also has cough mainly dry. Physical exam General: Alert, Oriented x3, Cooperative HEENT: Atraumatic, PERRLA, EOMI, Normocephalic Oral: Oral mucosa dry. No Gingival or Mucosal Lesions/ Ulcerations Neck: Supple, No JVD, Negative Carotid Bruits Chest wall/Lungs: Air entry diminished in bilateral lung bases. Bilateral fine crepitations Cardiovascular: Regular rate, Regular Rhythm, Normal S1, Normal S2, No M/G/R Abdomen: Ileostomy with history of bowel resection. Bowel Sounds Present, Soft, Non Tender, Non-Distended : Right-sided hydroureter with nephrostomy tube not draining urine, urobag empty. Left nephrostomy tube draining urine. No renal angle tenderness. No suprapubic tenderness. Self-catheterization every other day Extremities: No edema, Capillary Refill Less than 3 Seconds Skin: No rashes, No breakdown Musculoskeletal: No Tenderness to Palpation of Joints or Extremities Neurological: Cranial nerves II-XII grossly intact, DTR 2+/4. No acute focal neurological deficit. Psych/Mental Status: Normal Affect, Appropriate. Assessment & Plan Assessment/Plan (1) Acute on chronic kidney failure: PLAN: Plan 73-year-old female with prior history of colon cancer, bilateral nephrostomy tubes in place presents to the ED with concerns regarding fever, and was found to have leukocytosis with MAJO at presentation. She gives a history of decreased urine output through her right nephrostomy tubes, not draining urine for last 2 days and symptoms similar to her prior admission in December. The likely concerns include obstructive MAJO with urinary tract infection. Given her prior history of VRE we will start her on her antibiotics from last discharge. #Suspected acute complicated ,CAUTI with obstructed right nephrostomy tube and interval right hydroureteronephrosis: Has a prior history of VRE and Enterobacter cloacae infection. Zosyn is not good for Enterobacter. -ID consult. Patient has leukocytosis mainly neutrophils 95%. UA positive of nitrite and leukocyte esterase, WBC 25-50 cells. Urine culture shows 1000- 10,000 GNR from nephrostomy tube. Blood cultures pending. -IV meropenem and IV linezolid. CT abdomen pelvis was right hydroureteronephrosis but etiology of obstruction not demonstrated. Extensive bilateral pulmonary metastatic nodules but no acute consolidative process and pulmonary nodules are stable. Urologist consulted. Right nephrostomy tube needs to be changed. I also talked to radiology and confirm that OUR IR does change of nephrostomy tube but from Sunday to Sunday. Therefore, IR consulted. Continue IV fluid and Tylenol. -Tab Tylenol 1 g as needed for fevers #MAJO on CKD stage IIIb: Suspect postobstructive due to displaced nephrostomy tube causing MAJO. Last creatinine was 1.53 on 01/14/2024, BUN 15. Admitted with 25/1.96. [employer] Maintenance Consultant is consulted. Continue IV fluid. #Chronic cough: Less likely with illness of infection, no change in sputum. Chest x-ray and CT does not show acute consolidative process but has bilateral metastatic nodules. Patient on IV antibiotic. Does not seem pneumonia. # History of metastatic adenocarcinoma of the Colon (2018); s/p laparoscopic right colectomy with ileostomy and PORT on chemotherapy - Continue current therapy. # Essential hypertension - Hold scheduled antihypertensives until infection outlined in #1 has been neutralized. History of PE; on Eliquis, # Chronic Anemia - Likely due mainly to chronic kidney disease with hemoglobin of 8.9 g/dL present on admission. # GERD - Resume PPI. # History of PE on Eliquis - Resume Eliquis as previous. # DVT prophylaxis - Patient is already on apixaban will be continued. Total time of the visit including total time spent in counseling or coordination of care, (more than 50% of the total time, spent in obtaining medical information from nurses and other ancillary care providers,explaining to the patient about labs, imaging, diagnosis and management of active complex medical conditions), discussion with the special investigator and urologist and radiologist, ID consult, review of labs and imaging is 40 minutes. Microbiology Past 72 Hours 02/23/24 18:55 Urine, Nephrostomy Urine Culture - Preliminary Gram negative geeta 02/23/24 17:50 Mucosa - Nose SARS-CoV-2, Influenza & RSV (PCR) - Final Laboratory Results 02/23/24 16:30: WBC 15.5 H, RBC 3.02 L, Hgb 8.7 L, Hct 27.1 L, MCV 89.7, MCH 28.8, MCHC 32.1, RDW Std Deviation 51.9 H, RDW Coeff of Ismael 16.0 H, Plt Count 380, MPV 9.1, Neut % (Auto) Not Reportable, Absolute Neuts (auto) 15.5 H, A bsolute Lymphs (auto) 0.46 L, Total Counted 100, Neutrophils % (Manual) 95 H, Band Neutrophils % 1, Lymphocytes % (Manual) 3 L, Monocytes % (Manual) 1, Diff Path Review January, Platelet Estimate ADEQUATE, RBC Morphology N CHROM, Anisocytosis RARE, Macrocytosis RARE, Sodium 133 L, Potassium 4.2, Chloride 103, Carbon Dioxide 17.0 L, Anion Gap 13, BUN 40 H, Creatinine 3.59 H, Estim Creat Clear Calc 13.98, Est GFR (MDRD) Af Amer 16 L, Est GFR (MDRD) Non-Af 13 L, BUN/Creatinine Ratio 11.1, Glucose 126 H, Lactic Acid 1.6, Calcium 8.9, Total Bilirubin 0.60, AST 19, ALT < 6 L, Alkaline Phosphatase 172 H, Total Protein 7.2, Albumin 2.7 L, Globulin 4.5 H, Albumin/Globulin Ratio 0.6 L 02/23/24 18:55: Urine Color Yellow, Urine Clarity Sl. Cloudy, Urine pH 5.0, Ur Specific [place] 1.010, Urine Protein 30 H, Urine Glucose (UA) Normal, Urine Ketones Negative, Urine Occult Blood 150 H, Urine Nitrite Positive H, Urine Bilirubin Negative, Urine Urobilinogen Normal, Ur Leukocyte Esterase 500 H, Urine RBC 0 SEEN, Urine WBC 25-50 SEEN, Ur Squamous Epith Cells 0 SEEN, Urine Bacteria 1+, Fine Granular Casts 0-5 SEEN, Urine Mucus 0 SEEN 02/24/24 08:15: Phosphorus 3.7, Magnesium 1.6, Total Bilirubin 0.70, Direct Bilirubin 0.38 H, AST 16, ALT 7 L, Alkaline Phosphatase 165 H, Total Creatine Kinase 16 L, Total Protein 6.4, Albumin 2.2 L, Globulin 4.2 Clinical Impression(s) from Imaging Studies Chest X-Ray 02/23/24 18:24 IMPRESSION: No acute consolidative process. Extensive bilateral pulmonary nodules which are poorly seen, consistent with metastatic disease. Abdomen/Pelvis CT 02/23/24 21:29 IMPRESSION: Interval development of right hydroureteronephrosis with bilateral percutaneous nephrostomy tubes in place. Etiology of the obstruction is not demonstrated. Retrograde study may be indicated. Stable pulmonary metastasis. Charges/Coding Visit Charges Inpatient E&M: 31113 Subs Hosp L3
[2024-02-24 09:02] LABS: Phosphorus 3.7 mg/dL (2.5-4.9)
[2024-02-24 09:21] LABS: AST(SGOT) 16 U/L (15-37); Alanine Aminotransfer ALT/SGPT 7 U/L (13-56); Albumin, Serum 2.2 g/dL (3.2-5.0); Alkaline Phosphatase 165 U/L (45-117); Bilirubin, Direct 0.38 mg/dL (0.00-0.30); CPK Total, Creatine Kinase 16 U/L (26-192); Globulin 4.2 g/dL (2.2-4.2); Magnesium 1.6 mg/dL (1.6-2.6); Protein, Total 6.4 g/dL (6.4-8.2)
[2024-02-24] MEDS: Meropenem 500 MG in 0.9% Normal Saline (50mL MB+) 50 ML 100 MG IV ×2 (10:16→22:42)
[2024-02-24] MEDS: Linezolid 600 MG 600 MG/300 ML BAG 200 MG IV ×2 (10:18→21:09)
[2024-02-24] MEDS: APIXABAN 5 MG TABLET PO ×2 (10:21→21:21)
[2024-02-24] MEDS: Pantoprazole Sodium 40 MG Tablet PO (10:21)
[2024-02-24] MEDS: Loratadine 10 MG Tablet PO (10:21)
[2024-02-24] MEDS: amLODIPine 5 MG Tablet PO (10:21)
[2024-02-24 12:10] LABS: Absolute Lymphocyte Count 0.44 X10^3/uL (0.83-4.51); Absolute Neutrophil Count 10.2 X10^3/uL (2.0-7.7); Basophil# 0.02 X10^3/uL; Basophil% 0.2 % (0-1); Eosinophil# 0.02 X10^3/uL; Eosinophils% 0.2 % (0-5); Hematocrit 26.8 % (37-47); Hemoglobin 8.3 g/dL (12.0-15.0); Lymphocyte # 0.44 X10^3/ul (0.83-4.51); Lymphocyte % 3.9 % (19-41); Mean Corpuscular Hgb 28.8 pg (27.0-32.0); Mean Corpuscular Volume 93.1 fL (81-99); Mean Platelet Vol. 9.7 fl (6.2-12.0); Monocyte% 1.8 % (0-10); NRBC Flagged by Analyzer 0 % (0-5); Neutrophil % 89.4 % (47-70); POSITIVE DIFFERENTIAL YES; Platelet Count 321 K/mm3 (150-450); RBC Distribution Width CV 16.3 % (11.6-14.6); RBC Distribution Width SD 55.1 fl (35.1-43.9); Red Blood Count 2.88 M/mm3 (4.2-5.4); White Blood Count 11.4 K/mm3 (4.4-11.0)
[2024-02-24 12:32] LABS: AST(SGOT) 17 U/L (15-37); Alanine Aminotransfer ALT/SGPT 8 U/L (13-56); Albumin, Serum 2.3 g/dL (3.2-5.0); Alkaline Phosphatase 174 U/L (45-117); Anion Gap 8 (5-15); BUN 36 mg/dL (7-18); BUN/Creat Ratio 10.4 RATIO (10-20); Bilirubin, Direct 0.39 mg/dL (0.00-0.30); Calcium,Total 8.2 mg/dL (8.5-10.1); Chloride 108 mmol/L (98-107); Creatinine, Serum 3.45 mg/dL (0.55-1.02); EST Glomerular Filtration Rate 14 mL/min (>60); Est Glom Filt Rate - Afr Amer 17 mL/min (>60); Estimated Creatinine Clearance 14.54 ml/min; Globulin 3.7 g/dL (2.2-4.2); Glucose 102 mg/dL (74-106); Potassium 4.6 mmol/L (3.5-5.1); Sodium Level 136 mmol/L (136-145)
[2024-02-24] MEDS: 0.9% Saline Lock 10 ML Syringe IV (12:44)
[2024-02-24] MEDS: 0.9% Normal Saline (1000mL) 1,000 ML 75 ML IV (12:44)
--- NOTE | 2024-02-24 13:22 | CON.PCM_ITS ---
Assessment & Plan Assessment/Plan (1) Obstructed nephrostomy tube: (2) Bilateral ureteral obstruction: (3) Complicated UTI (urinary tract infection): PLAN: Plan She needs evaluation of her right percutaneous nephrostomy tube in interventional radiology and this is being planned for tomorrow Continue antibiotic coverage and await culture results Add straight cath of the urinary bladder Continue supportive care HPI Consult Data Date of Consult: 02/24/24 HPI Narrative Reason for Consultation: non-draining right nephrostomy tube HPI Narrative: SANTI NAM, is a 73 F who presented to the emergency department yesterday with a fever to 102 at home. She had nausea and vomiting a few days ago. She reports that her colostomy had been blocked and then began to work while she was here in the hospital. Since she went home the right nephrostomy tube has not been draining. She denies pain. She is feeling better today than she was yesterday. She reports that the nurse was just in her room and attempted to flush the right nephrostomy tube. She reports that she could feel the irrigant going into the renal pelvis, yet there is still no significant output in her nephrostomy tube drainage bag. [facility] Medical History (Updated 02/24/24 @ 13:[address] Janet Curran MD) Bilateral ureteral obstruction Complicated UTI (urinary tract infection) Chronic kidney disease Colon cancer Kidney disease Chronic indwelling Dennis catheter Former smoker Pulmonary embolism History of colon cancer Ureteral stent present Bacteremia due to Klebsiella pneumoniae Bilateral hydronephrosis Anemia MAJO (acute kidney injury) Sepsis History of colon cancer Acute dehydration UTI (urinary tract infection) Acidosis, lactic Sinus tachycardia by electrocardiography Anticoagulant long-term use Fever in adult Urinary retention Bilateral pulmonary embolism Metabolic acidosis 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 Peritoneal metastases Acid reflux s/p port placement Encounter for adjustment or management of vascular access device Adenocarcinoma of cecum Home Medications ?Medication ?Instructions ?Recorded ?Last Taken ?Type omeprazole 20 mg capsule,delayed 40 mg PO DAILY ACID REFLUX 01/12/17 09/27/23 History release loperamide 2 mg capsule 2 mg PO Q6H PRN DIARRHEA 08/01/23 09/27/23 History loratadine 10 mg tablet (Claritin) 10 mg PO DAILY ALLERGIES 08/01/23 09/27/23 History amlodipine 5 mg tablet 5 mg PO DAILY BLOOD PRESSURE 09/11/23 09/27/23 History apixaban 5 mg tablet (Eliquis) 5 mg PO BID BLOOD THINNER 09/11/23 11/05/23 09:00 History trifluridine 20 mg-tipiracil 8.19 1 tab PO BID 01/03/24 Unknown History mg tablet (Lonsurf) Allergy/AdvReac Type Severity Reaction Status Date / Time No Known Allergies Allergy Verified 02/23/24 16:01 Family History Mother Hypertension Father Melanoma Brother Melanoma Aunt Breast cancer Surgical History H/O: hysterectomy History of appendectomy History of bowel resection Hx of ileostomy History of s/p port placement (~12/06/18) S/P laparoscopic colectomy S/P colectomy Social History Smoking Status: Former smoker alcohol intake: current alcohol intake frequency: holidays/special occasions only substance use type: does not use caffeine: Yes what type of physical activity do you participate in: walking and weight training frequency: daily seatbelt use: always do you feel safe at home: Yes additional social history: - 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 ROS Constitutional Constitutional: Reports chills and fever(s) Eyes Eyes: Reports systems reviewed and no addt'l complaints, except as documented ENT HEENT: Reports systems reviewed and no addt'l complaints, except as documented Cardiovascular Cardiovascular: Denies chest pain or dyspnea at rest Respiratory/Chest Respiratory/Chest: Reports systems reviewed and no addt'l complaints, except as documented Gastrointestinal Gastrointestinal: Reports nausea and vomiting; Denies abdominal pain or cramping Genitourinary Genitourinary: Reports other Details: Nondraining right nephrostomy tube, no pain, no hematuria. She has not had her bladder drained with a catheter in 2 to 3 days. Musculoskeletal Musculoskeletal: Reports systems reviewed and no addt'l complaints, except as documented Integumentary Integumentary: Reports systems reviewed and no addt'l complaints, except as documented Neurologic Neurologic: Reports systems reviewed and no addt'l complaints, except as documented Psychiatric Psychiatric: Reports systems reviewed and no addt'l complaints, except as documented Endocrine Endocrinology: Reports systems reviewed and no addt'l complaints, except as documented Hematologic/Lymphatic Hematologic/Lymphatic: Reports systems reviewed and no addt'l complaints, except as documented Allergic/Immunologic Allergic/Immunologic: Reports systems reviewed and no addt'l complaints, except as documented Physical Exam Const alert, oriented x3 and no apparent distress General Appearance: cooperative and comfortable HEENT normocephalic, head/scalp atraumatic, hearing grossly normal bilaterally, external ears normal and external nose normal Eyes General Eye: normal appearance of both eyes Neck supple General: normal visual inspection and trachea midline Chest inspection of chest normal Resp normal respiratory effort, normal air movement and no retractions Cardio regular rate GI soft to palpation no CVA tenderness Skin no rashes or lesions noted, no jaundice, no petechiae and no mottling Neuro oriented x3, CN's II-XII intact bilaterally and moves all extremities Psych mental status grossly normal and thought process normal Lab / Micro Data 02/24/24 08:15 02/24/24 08:15 Labs: Laboratory Results - last 24 hr 02/23/24 16:30: WBC 15.5 H, RBC 3.02 L, Hgb 8.7 L, Hct 27.1 L, MCV 89.7, MCH 28.8, MCHC 32.1, RDW Std Deviation 51.9 H, RDW Coeff of Ismael 16.0 H, Plt Count 380, MPV 9.1, Neut % (Auto) Not Reportable, Absolute Neuts (auto) 15.5 H, A bsolute Lymphs (auto) 0.46 L, Total Counted 100, Neutrophils % (Manual) 95 H, Band Neutrophils % 1, Lymphocytes % (Manual) 3 L, Monocytes % (Manual) 1, Diff Path Review January, Platelet Estimate ADEQUATE, RBC Morphology N CHROM, Anisocytosis RARE, Macrocytosis RARE, Sodium 133 L, Potassium 4.2, Chloride 103, Carbon Dioxide 17.0 L, Anion Gap 13, BUN 40 H, Creatinine 3.59 H, Estim Creat Clear Calc 13.98, Est GFR (MDRD) Af Amer 16 L, Est GFR (MDRD) Non-Af 13 L, BUN/Creatinine Ratio 11.1, Glucose 126 H, Lactic Acid 1.6, Calcium 8.9, Total Bilirubin 0.60, AST 19, ALT < 6 L, Alkaline Phosphatase 172 H, Total Protein 7.2, Albumin 2.7 L, Globulin 4.5 H, Albumin/Globulin Ratio 0.6 L 02/23/24 18:55: Urine Color Yellow, Urine Clarity Sl. Cloudy, Urine pH 5.0, Ur Specific [place] 1.010, Urine Protein 30 H, Urine Glucose (UA) Normal, Urine Ketones Negative, Urine Occult Blood 150 H, Urine Nitrite Positive H, Urine Bilirubin Negative, Urine Urobilinogen Normal, Ur Leukocyte Esterase 500 H, Urine RBC 0 SEEN, Urine WBC 25-50 SEEN, Ur Squamous Epith Cells 0 SEEN, Urine Bacteria 1+, Fine Granular Casts 0-5 SEEN, Urine Mucus 0 SEEN 02/24/24 08:15: WBC 11.4 H, RBC 2.88 L, Hgb 8.3 L, Hct 26.8 L, MCV 93.1, MCH 28.8, MCHC 31.0 L, RDW Std Deviation 55.1 H, RDW Coeff of Ismael 16.3 H, Plt Count 321, MPV 9.7, Immature Gran % (Auto) 4.500 H, Neut % (Auto) 89.4 H, Lymph % (Auto) 3.9 L, [place] % (Auto) 1.8, Eos % (Auto) 0.2, Baso % (Auto) 0.2, Absolute Neuts (auto) 10.2 H, Absolute Lymphs (auto) 0.44 L, Nucleated RBC % 0, Sodium 136, Potassium 4.6, Chloride 108 H, Carbon Dioxide 20.0 L, Anion Gap 8, BUN 36 H , Creatinine 3.45 H, Estim Creat Clear Calc 14.54, Est GFR (MDRD) Af Amer 17 L, Est GFR (MDRD) Non-Af 14 L, BUN/Creatinine Ratio 10.4, Glucose 102, Calcium 8.2 L, Phosphorus 3.7, Magnesium 1.6, Total Bilirubin 0.70 02/24/24 08:15: Total Bilirubin 0.70, Direct Bilirubin 0.38 H 02/24/24 08:15: Direct Bilirubin 0.39 H, AST 16 02/24/24 08:15: AST 17, ALT 7 L 02/24/24 08:15: ALT 8 L, Alkaline Phosphatase 165 H 02/24/24 08:15: Alkaline Phosphatase 174 H, Total Creatine Kinase 16 L, C-React Prot Ext Range 210.00 H, Total Protein 6.4 02/24/24 08:15: Total Protein 6.0 L, Albumin 2.2 L 02/24/24 08:15: Albumin 2.3 L, Globulin 4.2 02/24/24 08:15: Globulin 3.7 Micro: Microbiology 02/23/24 18:55 Urine, Nephrostomy Urine Culture - Preliminary Gram negative geeta 02/23/24 17:50 Mucosa - Nose SARS-CoV-2, Influenza & RSV (PCR) - Final Imaging Radiology Impression Chest X-Ray 02/23/24 18:24 IMPRESSION: No acute consolidative process. Extensive bilateral pulmonary nodules which are poorly seen, consistent with metastatic disease. Electronically Signed: Ramón Brunson MD at 19:59 EDT , Abdomen/Pelvis CT 02/23/24 21:29 IMPRESSION: Interval development of right hydroureteronephrosis with bilateral percutaneous nephrostomy tubes in place. Etiology of the obstruction is not demonstrated. Retrograde study may be indicated. Stable pulmonary metastasis. Electronically Signed: Ramón Brunson MD at 1:05 EDT , ADDENDUM: 02/24/24 0135 IMPRESSION: Interval development of right hydroureteronephrosis with bilateral percutaneous nephrostomy tubes in place. Etiology of the obstruction is not demonstrated. Retrograde study may be indicated. Stable pulmonary metastasis. N.B. : The above Results were Read Back by Ramón Brunson MD to BASSAM Mckee RN, and understanding confirmed on 02/24/2024 01:28:32 (ET). Electronically Signed: Ramón Brunson MD at 1:05 EDT ,
[2024-02-24] MEDS: Mag Hydrox/Al Hydrox/Simeth 30 ML UDC PO (15:18)
--- NOTE | 2024-02-24 16:33 | CON.PCM.RE_ITS ---
Assessment & Plan Assessment/Plan (1) Acute on chronic kidney failure: QUALIFIERS: Acute renal failure type: unspecified Chronic kidney disease stage: stage 4 (severe) Qualified Code(s): N17.9 - Acute kidney failure, unspecified; N18.4 - Chronic kidney disease, stage 4 (severe) PLAN: Mostly due to low Effective circulating blood volume in the setting of urosepsis, decreased oral fluid intake. Left sided hydronephrosis/clogged nephrostomy tube contributing Plan Volume expansion No need for [employer] CLERK IR to open PNT tomorrow HPI Consult Data Date of Consult: 02/24/24 HPI Narrative Reason for Consultation: MAJO on CKD 4 HPI Narrative: SANTI NAM, is a 73 F who presents to ER with high fever, chills, decreased oral intake and lack of UO via PNT on the right. CT scan showed left sided hydro. Cr 2 days ago was 1.94, and today is 4.5. Started on IVF. She has had multiple episodes of MAJO within last year, usually associated with UTIs. Past medical history of essential hypertension, history of PE; on Eliquis, Chronic Anemia, GERD, history of metastatic adenocarcinoma of the Colon (2018); s/p laparoscopic right colectomy with ileostomy and PORT on chemotherapy, history of UTI with MAJO (October 02, 2023 treated with oral Linezolid); in the setting of CKD; stage III with baseline creatinine of ~1.8 mg/dL; s/p recent nephrostomy tubes placed with removal of her renal stents at the [facility] on October 15, 2023 [facility] Medical History Bilateral ureteral obstruction Complicated UTI (urinary tract infection) Chronic kidney disease Colon cancer Kidney disease Chronic indwelling Dennis catheter Former smoker Pulmonary embolism History of colon cancer Ureteral stent present Bacteremia due to Klebsiella pneumoniae Bilateral hydronephrosis Anemia MAJO (acute kidney injury) Sepsis History of colon cancer Acute dehydration UTI (urinary tract infection) Acidosis, lactic Sinus tachycardia by electrocardiography Anticoagulant long-term use Fever in adult Urinary retention Bilateral pulmonary embolism Metabolic acidosis 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 Peritoneal metastases Acid reflux s/p port placement Encounter for adjustment or management of vascular access device Adenocarcinoma of cecum Home Medications ?Medication ?Instructions ?Recorded ?Last Taken ?Type omeprazole 20 mg capsule,delayed 40 mg PO DAILY ACID REFLUX 01/12/17 09/27/23 History release loperamide 2 mg capsule 2 mg PO Q6H PRN DIARRHEA 08/01/23 09/27/23 History loratadine 10 mg tablet (Claritin) 10 mg PO DAILY ALLERGIES 08/01/23 09/27/23 History amlodipine 5 mg tablet 5 mg PO DAILY BLOOD PRESSURE 09/11/23 09/27/23 History apixaban 5 mg tablet (Eliquis) 5 mg PO BID BLOOD THINNER 09/11/23 11/05/23 09:00 History trifluridine 20 mg-tipiracil 8.19 1 tab PO BID 01/03/24 Unknown History mg tablet (Lonsurf) Allergy/AdvReac Type Severity Reaction Status Date / Time No Known Allergies Allergy Verified 02/23/24 16:01 Family History Mother Hypertension Father Melanoma Brother Melanoma Aunt Breast cancer Surgical History H/O: hysterectomy History of appendectomy History of bowel resection Hx of ileostomy History of s/p port placement (~12/06/18) S/P laparoscopic colectomy S/P colectomy Social History Smoking Status: Former smoker alcohol intake: current alcohol intake frequency: holidays/special occasions only substance use type: does not use caffeine: Yes what type of physical activity do you participate in: walking and weight training frequency: daily seatbelt use: always do you feel safe at home: Yes 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 Constitutional Constitutional: Reports chills, fever(s), malaise and weakness Eyes Eyes: Denies blindness, blurry vision, change in vision, discongugate gaze, double vision, dry eyes or loss of vision ENT HEENT: Reports dry mouth Cardiovascular Cardiovascular: Denies chest pain, claudication, diaphoresis, dyspnea on exertion, edema, irregular heart rhythm, leg edema, orthopnea, palpitations or syncope Respiratory/Chest Respiratory/Chest: Reports dry cough Gastrointestinal Gastrointestinal: Reports anorexia Genitourinary Genitourinary: Reports difficulty urinating Musculoskeletal Musculoskeletal: Denies abnormal gait, arthralgias, joint stiffness, joint swelling, muscle cramps or myalgias Integumentary Integumentary: Denies dry skin, erythema, jaundice, lesions, pruritus, rash or skin ulcer Neurologic Neurologic: Denies abnormal gait, burning sensations, confusion, focal weakness, frequent falls, headache(s), numbness, restless legs, seizures, syncope, tremor(s) or weakness Psychiatric Psychiatric: Denies anxiety, confusion, depression or hallucinations Endocrine Endocrinology: Denies cold intolerance, fatigue, heat intolerance, polydipsia or polyuria Physical Exam Const alert, oriented x3, no apparent distress and average body habitus Orientation / Consciousness: oriented to person, oriented to place and oriented to time HEENT normocephalic Head and Scalp: atraumatic Neck no lymphadenopathy Resp no use of accessory muscles and clear to auscultation bilaterally Cardio regular rate GI non-tender Auscultation: normoactive bowel sounds Skin no rashes or lesions noted Neuro Sensorium / Orientation: awake and alert Psych cooperative Lab / Micro Data Attestation: I reviewed the patient's lab results. 02/24/24 08:15 02/24/24 08:15 Labs: Laboratory Results - last 24 hr 02/23/24 16:30: WBC 15.5 H, RBC 3.02 L, Hgb 8.7 L, Hct 27.1 L, MCV 89.7, MCH 28.8, MCHC 32.1, RDW Std Deviation 51.9 H, RDW Coeff of Ismael 16.0 H, Plt Count 380, MPV 9.1, Neut % (Auto) Not Reportable, Absolute Neuts (auto) 15.5 H, A bsolute Lymphs (auto) 0.46 L, Total Counted 100, Neutrophils % (Manual) 95 H, Band Neutrophils % 1, Lymphocytes % (Manual) 3 L, Monocytes % (Manual) 1, Diff Path Review January, Platelet Estimate ADEQUATE, RBC Morphology N CHROM, Anisocytosis RARE, Macrocytosis RARE, Sodium 133 L, Potassium 4.2, Chloride 103, Carbon Dioxide 17.0 L, Anion Gap 13, BUN 40 H, Creatinine 3.59 H, Estim Creat Clear Calc 13.98, Est GFR (MDRD) Af Amer 16 L, Est GFR (MDRD) Non-Af 13 L, BUN/Creatinine Ratio 11.1, Glucose 126 H, Lactic Acid 1.6, Calcium 8.9, Total Bilirubin 0.60, AST 19, ALT < 6 L, Alkaline Phosphatase 172 H, Total Protein 7.2, Albumin 2.7 L, Globulin 4.5 H, Albumin/Globulin Ratio 0.6 L 02/23/24 18:55: Urine Color Yellow, Urine Clarity Sl. Cloudy, Urine pH 5.0, Ur Specific [place] 1.010, Urine Protein 30 H, Urine Glucose (UA) Normal, Urine Ketones Negative, Urine Occult Blood 150 H, Urine Nitrite Positive H, Urine Bilirubin Negative, Urine Urobilinogen Normal, Ur Leukocyte Esterase 500 H, Urine RBC 0 SEEN, Urine WBC 25-50 SEEN, Ur Squamous Epith Cells 0 SEEN, Urine Bacteria 1+, Fine Granular Casts 0-5 SEEN, Urine Mucus 0 SEEN 02/24/24 08:15: WBC 11.4 H, RBC 2.88 L, Hgb 8.3 L, Hct 26.8 L, MCV 93.1, MCH 28.8, MCHC 31.0 L, RDW Std Deviation 55.1 H, RDW Coeff of Ismael 16.3 H, Plt Count 321, MPV 9.7, Immature Gran % (Auto) 4.500 H, Neut % (Auto) 89.4 H, Lymph % (Auto) 3.9 L, [place] % (Auto) 1.8, Eos % (Auto) 0.2, Baso % (Auto) 0.2, Absolute Neuts (auto) 10.2 H, Absolute Lymphs (auto) 0.44 L, Nucleated RBC % 0, Sodium 136, Potassium 4.6, Chloride 108 H, Carbon Dioxide 20.0 L, Anion Gap 8, BUN 36 H , Creatinine 3.45 H, Estim Creat Clear Calc 14.54, Est GFR (MDRD) Af Amer 17 L, Est GFR (MDRD) Non-Af 14 L, BUN/Creatinine Ratio 10.4, Glucose 102, Calcium 8.2 L, Phosphorus 3.7, Magnesium 1.6, Total Bilirubin 0.70 02/24/24 08:15: Total Bilirubin 0.70, Direct Bilirubin 0.38 H 02/24/24 08:15: Direct Bilirubin 0.39 H, AST 16 02/24/24 08:15: AST 17, ALT 7 L 02/24/24 08:15: ALT 8 L, Alkaline Phosphatase 165 H 02/24/24 08:15: Alkaline Phosphatase 174 H, Total Creatine Kinase 16 L, C-React Prot Ext Range 210.00 H, Total Protein 6.4 02/24/24 08:15: Total Protein 6.0 L, Albumin 2.2 L 02/24/24 08:15: Albumin 2.3 L, Globulin 4.2 02/24/24 08:15: Globulin 3.7 Micro: Microbiology 02/23/24 18:55 Urine, Nephrostomy Urine Culture - Preliminary Gram negative geeta 02/23/24 17:50 Mucosa - Nose SARS-CoV-2, Influenza & RSV (PCR) - Final Imaging Radiology Impression Chest X-Ray 02/23/24 18:24 IMPRESSION: No acute consolidative process. Extensive bilateral pulmonary nodules which are poorly seen, consistent with metastatic disease. Electronically Signed: Ramón Brunson MD at 19:59 EDT Reading Location ID and State: [facility], [facility] / [place] Tel , Service support , Abdomen/Pelvis CT 02/23/24 21:29 IMPRESSION: Interval development of right hydroureteronephrosis with bilateral percutaneous nephrostomy tubes in place. Etiology of the obstruction is not demonstrated. Retrograde study may be indicated. Stable pulmonary metastasis. Electronically Signed: Ramón Brunson MD at 1:05 EDT , ADDENDUM: 02/24/24 0135 IMPRESSION: Interval development of right hydroureteronephrosis with bilateral percutaneous nephrostomy tubes in place. Etiology of the obstruction is not demonstrated. Retrograde study may be indicated. Stable pulmonary metastasis. N.B. : The above Results were Read Back by Ramón Brunson MD to BASSAM Mckee RN, and understanding confirmed on 02/24/2024 01:28:32 (ET). Electronically Signed: Ramón Brunson MD at 1:05 EDT ,
--- NOTE | 2024-02-24 17:53 | NURSING ---
This RN st. cathed pt earlier today around 1500 and only able to obtain 5cc of purlent, bloody urine.
[2024-02-24] MEDS: Acetaminophen 325 MG Tablet 650 MG PO (21:21)
--- NOTE | 2024-02-24 21:50 | NURSING ---
This RN emptied 5cc of strong, foul odor to Rt Nephrostomy tube.
[2024-02-25] VITALS (7 sets, daily range): BP systolic 119–137; BP diastolic 65–77; PULSE 73–105; RESP 16–18; TEMP 36.8–37.5; O2SAT 93–99
[2024-02-25] MEDS: 0.9% Normal Saline (1000mL) 1,000 ML 75 ML IV (04:29)
[2024-02-25 07:05] LABS: Basophil# 0.02 X10^3/uL; Eosinophil# 0.01 X10^3/uL; Hematocrit 24.7 % (37-47); Hemoglobin 7.5 g/dL (12.0-15.0); Mean Corp Hgb Conc 30.4 g/dL (32-36); Mean Corpuscular Hgb 28.2 pg (27.0-32.0); Mean Corpuscular Volume 92.9 fL (81-99); Mean Platelet Vol. 9.3 fl (6.2-12.0); Monocyte# 0.21 X10^3/uL; NRBC Flagged by Analyzer 0 % (0-5); POSITIVE COUNT YES; POSITIVE DIFFERENTIAL YES; POSITIVE MORPHOLOGY YES; Platelet Count 303 K/mm3 (150-450); RBC Distribution Width CV 15.9 % (11.6-14.6); RBC Distribution Width SD 53.8 fl (35.1-43.9); Red Blood Count 2.66 M/mm3 (4.2-5.4); White Blood Count 7.4 K/mm3 (4.4-11.0)
[2024-02-25 07:10] LABS: Differential Indicated SCAN CRITERIA MET
[2024-02-25 07:20] LABS: Anion Gap 6 (5-15); BUN 32 mg/dL (7-18); BUN/Creat Ratio 11.1 RATIO (10-20); Calcium,Total 8.7 mg/dL (8.5-10.1); Chloride 113 mmol/L (98-107); Creatinine, Serum 2.89 mg/dL (0.55-1.02); EST Glomerular Filtration Rate 17 mL/min (>60); Est Glom Filt Rate - Afr Amer 21 mL/min (>60); Estimated Creatinine Clearance 17.36 ml/min; Glucose 103 mg/dL (74-106); Potassium 4.1 mmol/L (3.5-5.1); Sodium Level 139 mmol/L (136-145)
[2024-02-25] MEDS: Budesonide Respules 0.5 MG/2 ML AMPUL.NEB. INHALATION ×2 (07:25→18:25)
[2024-02-25 08:17] LABS: Eosinophil 1 % (0-5); Lymphocyte 8 % (19-41); Monocyte 1 % (0-10); Neutrophil-Band 3 % (0-5); Neutrophil-Segmented 87 % (47-70); Platelet Estimate ADEQUATE (ADEQ); Red Cell Morphology NORM C+C NORMAL (NORM C&C); Total Cells Counted 100 (MANUAL DIFF)
[2024-02-25 08:18] LABS: Scan Smear per Review Criteria MANUAL DIFF
[2024-02-25 08:19] LABS: Absolute Neutrophil Count 6.7 X10^3/uL (2.0-7.7)
--- NOTE | 2024-02-25 08:25 | PCM.PN.HOSP ---
Reason for Visit Reason for Visit: Diagnoses Crossing vessel and stricture of ureter without hydronephrosis (02/23/24) Acute kidney failure, unspecified (02/23/24) Chronic kidney disease, stage 4 (severe) (02/23/24) Chronic kidney disease, unspecified (02/23/24) Urinary tract infection, site not specified (02/23/24) Other mechanical complication of nephrostomy catheter, initial encounter (02/23/24) Subjective Subjective Patient is a 73-year-old lady with history of colonic CA status post laparoscopic right colectomy with ileostomy currently on chemo, history of bilateral nephrostomy tubes who presented with fever. Patient was found to have decreased output from her right nephrostomy tube with right hydronephrosis. Admitted to the regular nursing floor for further management Objective Data Objective Data Vital Signs: Vital Signs Temp Pulse Resp BP Pulse Ox O2 Del Method 98.2 F 73 18 126/69 H 98 Room Air 02/25/24 03:00 02/25/24 07:26 02/25/24 07:26 02/25/24 03:00 02/25/24 03:00 02/25/24 03:00 Oxygen Delivery Method Room Air Weight: 65.771 kg Body Mass Index (BMI) 22.7 Intake & Output: Intake and Output for Last 24 Hours 02/23/24 02/24/24 02/25/24 23:59 23:59 23:59 Intake Total 2315.72 / 2315.72 2838.03 / 2838.03 551.25 / 551.25 Output Total 420 / 420 2455 / 2455 750 / 750 Balance 1895.72 / 1895.72 383.03 / 383.03 -198.75 / -198.75 Lab / Micro Data 02/25/24 06:35 02/25/24 06:35 Labs: Laboratory Results - last 24 hr 02/24/24 08:15: WBC 11.4 H, RBC 2.88 L, Hgb 8.3 L, Hct 26.8 L, MCV 93.1, MCH 28.8, MCHC 31.0 L, RDW Std Deviation 55.1 H, RDW Coeff of Ismael 16.3 H, Plt Count 321, MPV 9.7, Immature Gran % (Auto) 4.500 H, Neut % (Auto) 89.4 H, Lymph % (Auto) 3.9 L, [place] % (Auto) 1.8, Eos % (Auto) 0.2, Baso % (Auto) 0.2, Absolute Neuts (auto) 10.2 H, Absolute Lymphs (auto) 0.44 L, Nucleated RBC % 0, Sodium 136, Potassium 4.6, Chloride 108 H, Carbon Dioxide 20.0 L, Anion Gap 8, BUN 36 H, Creatinine 3.45 H, Estim Creat Clear Calc 14.54, Est GFR (MDRD) Af Amer 17 L, Est GFR (MDRD) Non-Af 14 L, BUN/Creatinine Ratio 10.4, Glucose 102, Calcium 8.2 L, Phosphorus 3.7, Magnesium 1.6, Total Bilirubin 0.70 02/24/24 08:15: Total Bilirubin 0.70, Direct Bilirubin 0.38 H 02/24/24 08:15: Direct Bilirubin 0.39 H, AST 16 02/24/24 08:15: AST 17, ALT 7 L 02/24/24 08:15: ALT 8 L, Alkaline Phosphatase 165 H 02/24/24 08:15: Alkaline Phosphatase 174 H, Total Creatine Kinase 16 L, C-React Prot Ext Range 210.00 H, Total Protein 6.4 02/24/24 08:15: Total Protein 6.0 L, Albumin 2.2 L 02/24/24 08:15: Albumin 2.3 L, Globulin 4.2 02/24/24 08:15: Globulin 3.7 02/25/24 06:35: WBC 7.4, RBC 2.66 L, Hgb 7.5 L, Hct 24.7 L, MCV 92.9, MCH 28.2, MCHC 30.4 L, RDW Std Deviation 53.8 H, RDW Coeff of Ismael 15.9 H, Plt Count 303, MPV 9.3, Immature Gran % (Auto) HEARING AID REPAIR TECHNICIAN, Neut % (Auto) HEARING AID REPAIR TECHNICIAN, Lymph % (Auto) HEARING AID REPAIR TECHNICIAN, [place] % (Auto) HEARING AID REPAIR TECHNICIAN, Eos % (Auto) HEARING AID REPAIR TECHNICIAN, Baso % (Auto) HEARING AID REPAIR TECHNICIAN, Absolute Neuts (auto) 6.7, Absolute Lymphs (auto) 0.60 L, Total Counted 100, Neutrophils % (Manual) 87 H, Band Neutrophils % 3, Lymphocytes % (Manual) 8 L, Monocytes % (Manual) 1, Eosinophils % (Manual) 1, Nucleated RBC % 0, Differential Comment COMMENT, Diff Path Review May foll, Platelet Estimate ADEQUATE, RBC Morphology NORM C+C, Sodium 139, Potassium 4.1, Chloride 113 H, Carbon Dioxide 20.0 L, Anion Gap 6, BUN 32 H, Creatinine 2.89 H, Estim Creat Clear Calc 17.36, Est GFR (MDRD) Af Amer 21 L, Est GFR (MDRD) Non-Af 17 L, BUN/Creatinine Ratio 11.1, Glucose 103, Calcium 8.7 Micro: Microbiology 02/23/24 18:55 Urine, Nephrostomy Urine Culture - Preliminary Gram negative geeta 02/23/24 17:50 Mucosa - Nose SARS-CoV-2, Influenza & RSV (PCR) - Final Physical Exam Narrative S GENERAL: cooperative HEENT: Atraumatic; normocephalic EYES; Anicteric, Normal Conjunctiva NECK; supple, normal thyroid, RESPIRATORY: Diminished to auscultation CARDIOVASCULAR: Regular S1 S2, GI: soft, normoactive bowel sounds, ileostomy right lower quadrant : No Renal angle tenderness; bilateral nephrostomy tubes EXTREMITIES: No edema, no clubbing, MUSCULOSKELETAL: no muscle wasting NEURO: Awake; no lateralizing signs. SKIN: No Rash PSYCH; Flat affect Assessment & Plan Assessment/Plan (1) Acute on chronic kidney failure: QUALIFIERS: Acute renal failure type: unspecified Chronic kidney disease stage: stage 4 (severe) Qualified Code(s): N17.9 - Acute kidney failure, unspecified; N18.4 - Chronic kidney disease, stage 4 (severe) PLAN: Plan Patient is a 73-year-old lady with history of colonic CA status post laparoscopic right colectomy with ileostomy currently on chemo, history of bilateral nephrostomy tubes who presented with fever. Patient was found to have decreased output from her right nephrostomy tube with right hydronephrosis. Admitted to the regular nursing floor for further management 1. Acute complicated UTI ? Patient has history of VRE as well as Enterobacter cloacae infection. Patient was started on meropenem as well as linezolid cultures sent 2. Obstructed right nephrostomy tube ? Plan was for patient to have undergone change of nephrostomy tube by IR. Bear Patient initially was however able to get the nephrostomy tube to drain freely with 20 mL of purulent fluid taken out and sent for cultures. 3. Anemia - Secondary to chronic disorder as well as anemia of malignancy, monitoring H&H and transfuse if patient becomes symptomatic or hemoglobin falls below 7 4. Acute kidney injury ? Patient baseline creatinine 1.53 from 422 2023. Creatinine on admission was 3.45. Started on IV fluid with subsequent monitoring of electrolytes ordered 5. Chronic kidney disease stage III ? Patient presented with MAJO management as discussed above 6. History of metastatic adenocarcinoma of the Colon (2017); s/p laparoscopic right colectomy with ileostomy and PORT on chemotherapy. Patient is managed by Dr. Whyte plan is for patient to resume her chemo following her discharge 7. Hypertension - Blood pressure controlled, home medications continued with dose adjustment as needed 8. 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 Patient's apixaban did continue Time spent in the patient's overall evaluation,decision-making process, review of diagnostic data, adjustment of management, discussion with other providers, nursing nursing and ancillary staff involved in patient's care documentation, 54 . Minutes Charges/Coding Visit Charges Inpatient E&M: 50624 [facility] L3
--- NOTE | 2024-02-25 08:36 | WOUNDNOTE ---
In to assess ostomy appliance. patient states appliance should probably be changed today. patient had thought she brought her supplies with her, but did not haven them when she checked. there is a small amount of liquid stool noted in the appliance. removed the appliance. peristomal skin is intact. stoma is pink and moist. measures approx 1 1/2 and is slightly oval in shape. cleansed skin with warm water. pat dry. applied a new 2 piece flat Cornell appliance with a paste ring per patient request. pt tolerated well. states the plan is to replace her right nephrostomy tube today. pt states she plans to move to [place] next week to be closer to her daughter. no further needs voiced at this time.
--- NOTE | 2024-02-25 09:14 | NURSING ---
dr munguia paged for when pt should start chemo regimen
--- NOTE | 2024-02-25 09:17 | RAD_ITS ---
STUDY: EVALUATION OF THE RIGHT NEPHROSTOMY TUBE. RIGHT REASON FOR EXAM: Female, 73 years old. Evaluate right nephrostomy tube FLUOROSCOPY TIME (if supplied): ( 24 seconds ) minutes/seconds. 9.98 mGy. 3 images were obtained. TECHNIQUE: Contrast was injected into the indwelling nephrostomy catheter. The catheter is patent. 20 cc of a appearance material was aspirated. COMPARISON: None. FINDINGS: The nephrostomy catheter is patent. RAD/Urography Antegrade Nephrostog IMPRESSION: Right nephrostomy catheter is patent. Aspiration of 20 cc of purulent material from the tube. Electronically Signed: Doron Doyle MD at 10:08 EDT ,
[2024-02-25] MEDS: Pantoprazole Sodium 40 MG Tablet PO (10:24)
[2024-02-25] MEDS: Loratadine 10 MG Tablet PO (10:24)
[2024-02-25] MEDS: amLODIPine 5 MG Tablet PO (10:24)
[2024-02-25] MEDS: APIXABAN 5 MG TABLET PO ×2 (10:25→21:46)
[2024-02-25] MEDS: Meropenem 500 MG in 0.9% Normal Saline (50mL MB+) 50 ML 100 MG IV ×2 (10:29→20:45)
--- NOTE | 2024-02-25 11:00 | CASEMGMT ---
RN CM Face to Face with patient for initial transition planning/care coordination assessment. RN CM introduced self and role at [facility]. Patient lying in bed, alert and oriented. Patient willing to participate in assessment and is able to answer all questions appropriately. Care providers, pharmacy, and demographics verified. PCP: Rafi Specialists: Pato, oncologist; Magdy urologist Preferred Pharmacy: [facility] Insurance: MCR, [employer] Prescription Benefit: yes Living Will/HPOA: yes, daughter Jocelynn Agrawal LNOK: daughter Living Arrangements: Patient lives alone but states daughter is currently staying with her. Patient lives in a raised ranch with 4 step and railing to enter. Transportation: daughter DME/HHC: Patient states she has shower chair, raised toilet, grab bars, and walker at home. No previous SNF. Patient is active with [facility] for fpc 2x per week. Patient wishes to discharge home with resumption of [facility], declines list. Patient states she has no further needs or concerns at this time. CM to follow for discharge planning needs that may arise. Disposition Plan: Patient to discharge home with resumption of HHC, family support, and follow-up plans in place. Helen WALSH, RN, CM
[2024-02-25 11:07] LABS: Pathologist Review Reviewed
[2024-02-25 11:08] LABS: Pathologist Review Reviewed
[2024-02-25] MEDS: Linezolid 600 MG 600 MG/300 ML BAG 200 MG IV ×2 (11:23→21:46)
--- NOTE | 2024-02-25 11:44 | CASEMGMT ---
BASSAM DEL VALLE asked discharge logistics planning manager Kathleen to send C MATTIE via careport to [facility].
--- NOTE | 2024-02-25 12:14 | CASEMGMT ---
Addendum entered by Kathleen Shin 02/25/24 12:42: Patient receives SN from [facility]. Kathleen Shin DC Planning Asst. Original Note: Discharge Planning Resumption HH referral sent via CarePort to [facility]. Asked what disciplines are currently ordered. Awaiting response. Kathleen Shin DC Planning Asst.
--- NOTE | 2024-02-25 13:07 | PCM.PN.REN ---
Subjective Subjective Resting in bed. Denies any complaints. States appetite fair. Objective Data Objective Data Vital Signs: Vital Signs Temp Pulse Resp BP Pulse Ox O2 Del Method 98.6 F 84 16 119/73 97 Room Air 02/25/24 08:00 02/25/24 08:00 02/25/24 08:00 02/25/24 08:00 02/25/24 08:00 02/25/24 08:00 Oxygen Delivery Method Room Air Weight: 65.771 kg Body Mass Index (BMI) 22.7 Intake & Output: Intake and Output for Last 24 Hours 02/23/24 02/24/24 02/25/24 23:59 23:59 23:59 Intake Total 2315.72 / 2315.72 2838.03 / 2838.03 1261.25 / 1261.25 Output Total 420 / 420 2455 / 2455 1200 / 1200 Balance 1895.72 / 1895.72 383.03 / 383.03 61.25 / 61.25 Lab / Micro Data 02/25/24 06:35 02/25/24 06:35 Labs: Laboratory Results - last 24 hr 02/23/24 16:30: Diff Path Review Reviewed 02/25/24 06:35: WBC 7.4, RBC 2.66 L, Hgb 7.5 L, Hct 24.7 L, MCV 92.9, MCH 28.2, MCHC 30.4 L, RDW Std Deviation 53.8 H, RDW Coeff of Ismael 15.9 H, Plt Count 303, MPV 9.3, Immature Gran % (Auto) PHOTO SPECIALIST, Neut % (Auto) PHOTO SPECIALIST, Lymph % (Auto) PHOTO SPECIALIST, [place] % (Auto) PHOTO SPECIALIST, Eos % (Auto) PHOTO SPECIALIST, Baso % (Auto) PHOTO SPECIALIST, Absolute Neuts (auto) 6.7, Absolute Lymphs (auto) 0.60 L, Total Counted 100, Neutrophils % (Manual) 87 H, Band Neutrophils % 3, Lymphocytes % (Manual) 8 L, Monocytes % (Manual) 1, Eosinophils % (Manual) 1, Nucleated RBC % 0, Differential Comment COMMENT, Diff Path Review Reviewed, Platelet Estimate ADEQUATE, RBC Morphology NORM C+C, Sodium 139, Potassium 4.1, Chloride 113 H, Carbon Dioxide 20.0 L, Anion Gap 6, BUN 32 H, Creatinine 2.89 H, Estim Creat Clear Calc 17.36, Est GFR (MDRD) Af Amer 21 L, Est GFR (MDRD) Non-Af 17 L, BUN/Creatinine Ratio 11.1, Glucose 103, Calcium 8.7 Micro: Microbiology 02/23/24 18:55 Urine, Nephrostomy Urine Culture - Preliminary Raoultella planticola 02/23/24 16:30 Blood Culture (Wb) #2 - Anticubital Right Blood Culture - Preliminary 02/23/24 17:50 Mucosa - Nose SARS-CoV-2, Influenza & RSV (PCR) - Final Radiography Diagnostic Testing: Radiology Impression Nephrostogram 02/25/24 09:17 IMPRESSION: Right nephrostomy catheter is patent. Aspiration of 20 cc of purulent material from the tube. Electronically Signed: Doron Doyle MD at 10:08 EDT , Physical Exam Narrative Alert and orient x 3, no apparent distress S1, S2, RRR Lung sounds clear Abdomen soft, nontender No edema Left nephrostomy tube yellow urine in bag. Right nephrostomy tube cloudy light yellow urine noted in tubing Assessment & Plan Assessment/Plan (1) Acute on chronic kidney failure: QUALIFIERS: Acute renal failure type: unspecified Chronic kidney disease stage: stage 4 (severe) Qualified Code(s): N17.9 - Acute kidney failure, unspecified; N18.4 - Chronic kidney disease, stage 4 (severe) PLAN: - MAJO on CKD stage III/IV; MAJO secondary to low effective circulating blood volume in the setting of urosepsis, decreased oral fluid intake and left sided hydronephrosis/clogged nephrostomy tube contributing. Renal function is improving. SCr 3.59 on admission, today SCr 2.89. Patient has good urine output from left nephrostomy tube. Patient had nephrostogram on right side today, right nephrostomy tube flushed and is patent, will follow urine output. Patient has scheduled appointment Sunday with [facility] in [place] to have nephrostomy tube change. No acute indication for SALES ROUTE DRIVER, volume status acceptable, continue on IV fluids as ordered. No hyperkalemia or acidemia and good urine output. - CKD stage III/IV; baseline SCr unknown as patient has multiple MAJO episodes and widely fluctuating serum creatinine trends. 01/15/2024 serum creatinine 1.53 mg/dL/egfr 36 and 02/21/2024 creatinine 1.96/egfr 27. This may be around her baseline. - UTI; antibiotics meropenem and linezolid. Blood cultures pending. -Patient states she will be moving to [place] in 2 weeks to live with her daughter. She states she has oncology and urology appointments established. She states she will also establish with nephrology
--- NOTE | 2024-02-25 14:09 | PCM.CONS.GEN ---
Assessment & Plan Assessment/Plan (1) Obstructed nephrostomy tube: (2) Complicated UTI (urinary tract infection): PLAN: MAJO improved, Ucx with GNR. Prior h/o VRE. On empiric linezolid/leon. Will follow, thank you (3) Adenocarcinoma of colon: HPI Consult Data Date of Consult: 02/25/24 HPI Narrative Reason for Consultation: pyelo HPI Narrative: SANTI NAM, is a 73 F with colon cancer, bilat neph tubes, recurrent uti, presented 02/22 with one week of fever, not feeling well, nausea, poor appetite, decrease R tube output. Some chronic cough. No abd pain. Admitted here, seen by neph and urology, taken to IR today. Feeling better, on linezolid and meropenem. Full ROS performed and neg except as noted above. [facility] Medical History Bilateral ureteral obstruction Complicated UTI (urinary tract infection) Chronic kidney disease Colon cancer Kidney disease Chronic indwelling Dennis catheter Former smoker Pulmonary embolism History of colon cancer Ureteral stent present Bacteremia due to Klebsiella pneumoniae Bilateral hydronephrosis Anemia MAJO (acute kidney injury) Sepsis History of colon cancer Acute dehydration UTI (urinary tract infection) Acidosis, lactic Sinus tachycardia by electrocardiography Anticoagulant long-term use Fever in adult Urinary retention Bilateral pulmonary embolism Metabolic acidosis 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 Peritoneal metastases Acid reflux s/p port placement Encounter for adjustment or management of vascular access device Adenocarcinoma of cecum Home Medications ?Medication ?Instructions ?Recorded ?Last Taken ?Type omeprazole 20 mg capsule,delayed 40 mg PO DAILY ACID REFLUX 01/12/17 09/27/23 History release loperamide 2 mg capsule 2 mg PO Q6H PRN DIARRHEA 08/01/23 09/27/23 History loratadine 10 mg tablet (Claritin) 10 mg PO DAILY ALLERGIES 08/01/23 09/27/23 History amlodipine 5 mg tablet 5 mg PO DAILY BLOOD PRESSURE 09/11/23 09/27/23 History apixaban 5 mg tablet (Eliquis) 5 mg PO BID BLOOD THINNER 09/11/23 11/05/23 09:00 History trifluridine 20 mg-tipiracil 8.19 1 tab PO BID 01/03/24 Unknown History mg tablet (Lonsurf) Allergy/AdvReac Type Severity Reaction Status Date / Time No Known Allergies Allergy Verified 02/23/24 16:01 Family History Mother Hypertension Father Melanoma Brother Melanoma Aunt Breast cancer Surgical History H/O: hysterectomy History of appendectomy History of bowel resection Hx of ileostomy History of s/p port placement (~12/06/18) S/P laparoscopic colectomy S/P colectomy Social History Smoking Status: Former smoker alcohol intake: current alcohol intake frequency: holidays/special occasions only substance use type: does not use caffeine: Yes what type of physical activity do you participate in: walking and weight training frequency: daily seatbelt use: always do you feel safe at home: Yes additional social history: - [employer]-Retired 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 02/25/24 06:35 02/25/24 06:35 Labs: Laboratory Results - last 24 hr 02/23/24 16:30: Diff Path Review Reviewed 02/25/24 06:35: WBC 7.4, RBC 2.66 L, Hgb 7.5 L, Hct 24.7 L, MCV 92.9, MCH 28.2, MCHC 30.4 L, RDW Std Deviation 53.8 H, RDW Coeff of Ismael 15.9 H, Plt Count 303, MPV 9.3, Immature Gran % (Auto) PHYSIOLOGICAL CHEMIST, Neut % (Auto) PHYSIOLOGICAL CHEMIST, Lymph % (Auto) PHYSIOLOGICAL CHEMIST, [place] % (Auto) PHYSIOLOGICAL CHEMIST, Eos % (Auto) PHYSIOLOGICAL CHEMIST, Baso % (Auto) PHYSIOLOGICAL CHEMIST, Absolute Neuts (auto) 6.7, Absolute Lymphs (auto) 0.60 L, Total Counted 100, Neutrophils % (Manual) 87 H, Band Neutrophils % 3, Lymphocytes % (Manual) 8 L, Monocytes % (Manual) 1, Eosinophils % (Manual) 1, Nucleated RBC % 0, Differential Comment COMMENT, Diff Path Review Reviewed, Platelet Estimate ADEQUATE, RBC Morphology NORM C+C, Sodium 139, Potassium 4.1, Chloride 113 H, Carbon Dioxide 20.0 L, Anion Gap 6, BUN 32 H, Creatinine 2.89 H, Estim Creat Clear Calc 17.36, Est GFR (MDRD) Af Amer 21 L, Est GFR (MDRD) Non-Af 17 L, BUN/Creatinine Ratio 11.1, Glucose 103, Calcium 8.7 Micro: Microbiology 02/23/24 18:55 Urine, Nephrostomy Urine Culture - Preliminary Raoultella planticola Yeast Like Organism 02/23/24 16:30 Blood Culture (Wb) #2 - Anticubital Right Blood Culture - Preliminary Imaging Radiology Impression Nephrostogram 02/25/24 09:17 IMPRESSION: Right nephrostomy catheter is patent. Aspiration of 20 cc of purulent material from the tube. Electronically Signed: Doron Doyle MD at 10:08 EDT ,
--- NOTE | 2024-02-25 14:29 | PN.URO_ITS ---
Subjective Subjective Patient is sleeping comfortably. Objective Data Objective Data I discussed with nursing staff. The straight cath from the bladder yielded minimal urine output. She did have her nephrostomy tube evaluated. It is in good position but there is thick purulent drainage there. We discussed continuing flushing the right nephrostomy tube with 30 cc every shift. We will continue removing urine from the bladder at least once daily. Vital Signs: Vital Signs Temp Pulse Resp BP Pulse Ox O2 Del Method 98.6 F 84 16 119/73 97 Room Air 02/25/24 08:00 02/25/24 08:00 02/25/24 08:00 02/25/24 08:00 02/25/24 08:00 02/25/24 08:00 Oxygen Delivery Method Room Air Weight: 65.771 kg Body Mass Index (BMI) 22.7 Intake & Output: Intake and Output for Last 24 Hours 02/23/24 02/24/24 02/25/24 23:59 23:59 23:59 Intake Total 2315.72 / 2315.72 2838.03 / 2838.03 1261.25 / 1261.25 Output Total 420 / 420 2455 / 2455 1200 / 1200 Balance 1895.72 / 1895.72 383.03 / 383.03 61.25 / 61.25 Lab / Micro Data Attestation: I reviewed the patient's lab results. 02/25/24 06:35 02/25/24 06:35 Labs: Laboratory Results - last 24 hr 02/23/24 16:30: Diff Path Review Reviewed 02/25/24 06:35: WBC 7.4, RBC 2.66 L, Hgb 7.5 L, Hct 24.7 L, MCV 92.9, MCH 28.2, MCHC 30.4 L, RDW Std Deviation 53.8 H, RDW Coeff of Ismael 15.9 H, Plt Count 303, MPV 9.3, Immature Gran % (Auto) LAMINA SEARCHER, Neut % (Auto) LAMINA SEARCHER, Lymph % (Auto) LAMINA SEARCHER, [place] % (Auto) LAMINA SEARCHER, Eos % (Auto) LAMINA SEARCHER, Baso % (Auto) LAMINA SEARCHER, Absolute Neuts (auto) 6.7, A bsolute Lymphs (auto) 0.60 L, Total Counted 100, Neutrophils % (Manual) 87 H, Band Neutrophils % 3, Lymphocytes % (Manual) 8 L, Monocytes % (Manual) 1, Eosinophils % (Manual) 1, Nucleated RBC % 0, Differential Comment COMMENT, Diff Path Review Reviewed, Platelet Estimate ADEQUATE, RBC Morphology NORM C+C, Sodium 139, Potassium 4.1, Chloride 113 H, Carbon Dioxide 20.0 L, Anion Gap 6, B UN 32 H, Creatinine 2.89 H, Estim Creat Clear Calc 17.36, Est GFR (MDRD) Af Amer 21 L, Est GFR (MDRD) Non-Af 17 L, BUN/Creatinine Ratio 11.1, Glucose 103, Calcium 8.7 Micro: Microbiology 02/23/24 18:55 Urine, Nephrostomy Urine Culture - Preliminary Raoultella planticola Yeast Like Organism 02/23/24 16:30 Blood Culture (Wb) #2 - Anticubital Right Blood Culture - Preliminary 02/23/24 17:50 Mucosa - Nose SARS-CoV-2, Influenza & RSV (PCR) - Final Radiography Diagnostic Testing: Radiology Impression Nephrostogram 02/25/24 09:17 IMPRESSION: Right nephrostomy catheter is patent. Aspiration of 20 cc of purulent material from the tube. Electronically Signed: Doron Doyle MD at 10:08 EDT , Physical Exam Narrative The patient is currently resting and I did not awaken her. Assessment & Plan Assessment/Plan (1) Obstructed nephrostomy tube: (2) Complicated UTI (urinary tract infection): (3) Bilateral ureteral obstruction: PLAN: Plan Continue supportive care Continue right nephrostomy tube flushing Continue antibiotic coverage Cath urinary bladder once daily
[2024-02-26] VITALS (8 sets, daily range): BP systolic 135–146; BP diastolic 75–81; PULSE 89–95; RESP 13–18; TEMP 36.8–37; O2SAT 96–100
[2024-02-26 06:38] LABS: Absolute Lymphocyte Count 0.62 X10^3/uL (0.83-4.51); Absolute Neutrophil Count 4.6 X10^3/uL (2.0-7.7); Basophil# 0.02 X10^3/uL; Basophil% 0.4 % (0-1); Eosinophil# 0.02 X10^3/uL; Eosinophils% 0.4 % (0-5); Hematocrit 25.1 % (37-47); Hemoglobin 7.8 g/dL (12.0-15.0); Lymphocyte # 0.62 X10^3/ul (0.83-4.51); Mean Corp Hgb Conc 31.1 g/dL (32-36); Mean Corpuscular Hgb 28.5 pg (27.0-32.0); Mean Corpuscular Volume 91.6 fL (81-99); Monocyte# 0.22 X10^3/uL; Monocyte% 3.9 % (0-10); NRBC Flagged by Analyzer 0 % (0-5); Neutrophil # 4.61 X10^3/uL (2.7-7.7); Neutrophil % 81.6 % (47-70); POSITIVE MORPHOLOGY YES; Platelet Count 298 K/mm3 (150-450); RBC Distribution Width CV 15.9 % (11.6-14.6); RBC Distribution Width SD 52.1 fl (35.1-43.9); Red Blood Count 2.74 M/mm3 (4.2-5.4); White Blood Count 5.6 K/mm3 (4.4-11.0)
[2024-02-26 06:48] LABS: Differential Indicated SCAN CRITERIA MET
[2024-02-26 07:27] LABS: Anion Gap 6 (5-15); BUN 29 mg/dL (7-18); BUN/Creat Ratio 10.7 RATIO (10-20); Calcium,Total 8.7 mg/dL (8.5-10.1); Chloride 110 mmol/L (98-107); EST Glomerular Filtration Rate 18 mL/min (>60); Est Glom Filt Rate - Afr Amer 22 mL/min (>60); Estimated Creatinine Clearance 18.58 ml/min; Glucose 91 mg/dL (74-106); Magnesium 1.6 mg/dL (1.6-2.6); Phosphorus 3.4 mg/dL (2.5-4.9); Potassium 4.4 mmol/L (3.5-5.1); Sodium Level 136 mmol/L (136-145)
[2024-02-26] MEDS: Albuterol 2.5 MG/3 ML VIAL.NEB. INHALATION (07:47)
[2024-02-26] MEDS: Budesonide Respules 0.5 MG/2 ML AMPUL.NEB. INHALATION (07:48)
[2024-02-26 07:50] LABS: Differential Comment SCANNED
[2024-02-26 07:52] LABS: Anisocytosis 1+; Hypochromasia 1+; Microcytosis 1+; Ovalocyte 1+
[2024-02-26] MEDS: amLODIPine 5 MG Tablet PO (07:53)
[2024-02-26 07:54] LABS: Schistocytes 1+
[2024-02-26] MEDS: Loratadine 10 MG Tablet PO (07:54)
[2024-02-26] MEDS: APIXABAN 5 MG TABLET PO ×2 (07:54→21:12)
[2024-02-26] MEDS: Pantoprazole Sodium 40 MG Tablet PO (07:54)
--- NOTE | 2024-02-26 09:30 | PCM.PN.HOSP ---
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 Patient remains on linezolid as well as meropenem Objective Data Objective Data Vital Signs: Vital Signs Temp Pulse Resp BP Pulse Ox O2 Del Method 98.6 F 95 18 137/76 H 97 Room Air 02/26/24 06:59 02/26/24 07:50 02/26/24 07:50 02/26/24 06:59 02/26/24 07:51 02/26/24 07:51 Oxygen Delivery Method Room Air Weight: 65.771 kg Body Mass Index (BMI) 22.7 Intake & Output: Intake and Output for Last 24 Hours 02/24/24 02/25/24 02/26/24 23:59 23:59 23:59 Intake Total 2838.03 / 2838.03 3121.25 / 3121.25 Output Total 2455 / 2455 1950 / 2150 870 / 870 Balance 383.03 / 383.03 1171.25 / 971.25 -870 / -870 Lab / Micro Data 02/26/24 06:13 02/26/24 06:13 Labs: Laboratory Results - last 24 hr 02/23/24 16:30: Diff Path Review Reviewed 02/25/24 06:35: Diff Path Review Reviewed 02/26/24 06:13: WBC 5.6, RBC 2.74 L, Hgb 7.8 L, Hct 25.1 L, MCV 91.6, MCH 28.5, MCHC 31.1 L, RDW Std Deviation 52.1 H, RDW Coeff of Ismael 15.9 H, Plt Count 298, MPV 9.0, Immature Gran % (Auto) 2.700 H, Neut % (Auto) 81.6 H, Lymph % (Auto) 11.0 L, [place] % (Auto) 3.9, Eos % (Auto) 0.4, Baso % (Auto) 0.4, Absolute Neuts (auto) 4.6, Absolute Lymphs (auto) 0.62 L, Nucleated RBC % 0, Differential Comment SCANNED, Hypochromasia 1+, Anisocytosis 1+, Microcytosis 1+, Ovalocytes 1+, Schistocytes 1+, Sodium 136, Potassium 4.4, Chloride 110 H, Carbon Dioxide 20.0 L, Anion Gap 6, BUN 29 H, Creatinine 2.70 H, Estim Creat Clear Calc 18.58, Est GFR (MDRD) Af Amer 22 L, Est GFR (MDRD) Non-Af 18 L, BUN/Creatinine Ratio 10.7, Glucose 91, Calcium 8.7, Phosphorus 3.4, Magnesium 1.6 Micro: Microbiology 02/23/24 18:55 Urine, Nephrostomy Urine Culture - Preliminary Raoultella planticola Yeast Like Organism 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 02/25/24 09:48 Aspirate - Other Gram Stain - Final 02/23/24 17:50 Mucosa - Nose SARS-CoV-2, Influenza & RSV (PCR) - Final Radiography Diagnostic Testing: Radiology Impression Nephrostogram 02/25/24 09:17 IMPRESSION: Right nephrostomy catheter is patent. Aspiration of 20 cc of purulent material from the tube. Electronically Signed: Doron Doyle MD at 10:08 EDT , Physical Exam Narrative S GENERAL: cooperative HEENT: Atraumatic; normocephalic EYES; Anicteric, Normal Conjunctiva NECK; supple, normal thyroid, RESPIRATORY: Diminished to auscultation CARDIOVASCULAR: Regular S1 S2, GI: soft, normoactive bowel sounds, ileostomy right lower quadrant : No Renal angle tenderness; bilateral nephrostomy tubes EXTREMITIES: No edema, no clubbing, MUSCULOSKELETAL: no muscle wasting NEURO: Awake; no lateralizing signs. SKIN: No Rash PSYCH; Flat affect Assessment & Plan Assessment/Plan (1) Acute on chronic kidney failure: QUALIFIERS: Acute renal failure type: unspecified Chronic kidney disease stage: stage 4 (severe) Qualified Code(s): N17.9 - Acute kidney failure, unspecified; N18.4 - Chronic kidney disease, stage 4 (severe) PLAN: Plan Patient is a 73-year-old lady with history of colonic CA status post laparoscopic right colectomy with ileostomy currently on chemo, history of bilateral nephrostomy tubes who presented with fever. Patient was found to have decreased output from her right nephrostomy tube with right hydronephrosis. Admitted to the regular nursing floor for further management 1. Acute complicated UTI ? Patient has history of VRE as well as Enterobacter cloacae infection. 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 Patient remains on linezolid as well as meropenem patient was seen in consultation by infectious disease notes and recommendations reviewed 2. Obstructed right nephrostomy tube ? Plan was for patient to have undergone change of nephrostomy tube by IR. Bear Patient initially was however able to get the nephrostomy tube to drain freely with 20 mL of purulent fluid taken out and sent for cultures. 3. Anemia - Secondary to chronic disorder as well as anemia of malignancy, monitoring H&H and transfuse if patient becomes symptomatic or hemoglobin falls below 7 4. Acute kidney injury ? Patient baseline creatinine 1.53 from 422 2023. Creatinine on admission was 3.45. Started on IV fluid with subsequent monitoring of electrolytes ordered 5. Chronic kidney disease stage III ? Patient presented with MAJO management as discussed above 6. History of metastatic adenocarcinoma of the Colon (2018); s/p laparoscopic right colectomy with ileostomy and PORT on chemotherapy. Patient is managed by Dr. Whyte plan is for patient to resume her chemo following her discharge 7. Hypertension - Blood pressure controlled, home medications continued with dose adjustment as needed 8. 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 Patient's apixaban did continue Time spent in the patient's overall evaluation,decision-making process, review of diagnostic data, adjustment of management, discussion with other providers, nursing nursing and ancillary staff involved in patient's care documentation, 40 . Minutes Charges/Coding Visit Charges Inpatient E&M: 70196 Subs Hosp L2
[2024-02-26] MEDS: Linezolid 600 MG Tablet PO (10:46)
[2024-02-26] MEDS: Meropenem 500 MG in 0.9% Normal Saline (50mL MB+) 50 ML 100 MG IV ×2 (10:46→21:12)
--- NOTE | 2024-02-26 13:27 | PCM.PN.ID ---
Physical Exam Narrative Feeling better, but minimal neph tube output. No fever. Const alert and no apparent distress General Appearance: cooperative Resp normal air movement and clear to auscultation bilaterally Cardio regular rate and regular rhythm GI soft to palpation, non-tender and non-distended Skin no rashes or lesions noted ID ID: Route of nutrition/ use of supplements: [] Nutritional Intake: [] IV Site: [] Dennis Catheter: [] Assessment & Plan Assessment/Plan (1) Obstructed nephrostomy tube: (2) Complicated UTI (urinary tract infection): PLAN: MAJO improved, Ucx with small amount raoultella and yest here. 02/21 [facility] ucx with heavy growth citrobacter. Prior h/o VRE. On empiric linezolid/leon. Will stop linezolid today. Poor drain output, may need another procedure if this persists. Overall, she is feeling better. Will follow (3) Adenocarcinoma of colon:
[2024-02-27 03:23] VITALS: BP 126/78; PULSE 88; RESP 16; TEMP 36.8; O2SAT 98
[2024-02-27 07:20] LABS: Absolute Neutrophil Count 3.2 X10^3/uL (2.0-7.7); Basophil# 0.02 X10^3/uL; Basophil% 0.5 % (0-1); Eosinophil# 0.01 X10^3/uL; Eosinophils% 0.2 % (0-5); Hematocrit 25.9 % (37-47); Lymphocyte % 18.5 % (19-41); Mean Corp Hgb Conc 30.9 g/dL (32-36); Mean Corpuscular Hgb 28.3 pg (27.0-32.0); Mean Corpuscular Volume 91.5 fL (81-99); Mean Platelet Vol. 9.1 fl (6.2-12.0); Monocyte# 0.19 X10^3/uL; Monocyte% 4.4 % (0-10); NRBC Flagged by Analyzer 0 % (0-5); Neutrophil # 3.24 X10^3/uL (2.7-7.7); Platelet Count 299 K/mm3 (150-450); RBC Distribution Width CV 15.7 % (11.6-14.6); RBC Distribution Width SD 52.2 fl (35.1-43.9); Red Blood Count 2.83 M/mm3 (4.2-5.4); White Blood Count 4.3 K/mm3 (4.4-11.0)
--- NOTE | 2024-02-27 07:56 | PCM.PN.GU ---
Subjective Subjective Feeling better today. Nephrostomy tube now draining on the right. Objective Data Objective Data Vital Signs: Vital Signs Temp Pulse Resp BP Pulse Ox O2 Del Method 98.2 F 88 16 126/78 H 98 Room Air 02/27/24 03:23 02/27/24 03:23 02/27/24 03:23 02/27/24 03:23 02/27/24 03:23 02/27/24 03:23 Oxygen Delivery Method Room Air Weight: 65.771 kg Body Mass Index (BMI) 22.7 Intake & Output: Intake and Output for Last 24 Hours 02/25/24 02/26/24 02/27/24 23:59 23:59 23:59 Intake Total 3121.25 / 3121.25 140 / 140 Output Total 1950 / 2150 2378 / 2378 550 / 550 Balance 1171.25 / 971.25 -2238 / -2238 -550 / -550 Lab / Micro Data 02/27/24 07:03 02/26/24 06:13 Labs: Laboratory Results - last 24 hr 02/27/24 07:03: WBC 4.3 L, RBC 2.83 L, Hgb 8.0 L, Hct 25.9 L, MCV 91.5, MCH 28.3, MCHC 30.9 L, RDW Std Deviation 52.2 H, RDW Coeff of Ismael 15.7 H, Plt Count 299, MPV 9.1, Immature Gran % (Auto) 1.400 H, Neut % (Auto) 75.0 H, Lymph % (Auto) 18.5 L, [place] % (Auto) 4.4, Eos % (Auto) 0.2, Baso % (Auto) 0.5, Absolute Neuts (auto) 3.2, Absolute Lymphs (auto) 0.80 L, Nucleated RBC % 0 Micro: Microbiology 02/23/24 18:55 Urine, Nephrostomy Urine Culture - Preliminary Raoultella planticola Yeast, not Anjelica albicans GNR lactose manager field services 02/25/24 09:48 Aspirate - Other Gram Stain - Final 02/25/24 09:48 Aspirate - Other Wound Culture - Preliminary GNR lactose manager field services Alpha hemolytic organism 02/23/24 16:30 Blood Culture (Wb) #2 - Anticubital Right Blood Culture - Preliminary GNR lactose manager field services 02/23/24 16:55 Blood Culture (Wb) - Chest Blood Culture - Preliminary No growth in 48 hours. 02/23/24 17:50 Mucosa - Nose SARS-CoV-2, Influenza & RSV (PCR) - Final Physical Exam Const alert, oriented x3 and no apparent distress HEENT normocephalic and head/scalp atraumatic Eyes General Eye: normal appearance of both eyes Neck supple General: trachea midline Chest inspection of chest normal Resp normal air movement Effort and Inspection: able to speak in complete sentences and symmetric chest movement Cardio regular rate GI soft to palpation Narrative: both PCN tubes are draining, right one is still cloudy but improved. Back/Spine no CVA tenderness Extremity normal to inspection Skin no rashes or lesions noted, skin turgor normal, no jaundice, no petechiae and no mottling Neuro oriented x3 and CN's II-XII intact bilaterally Psych mental status grossly normal Assessment & Plan Assessment/Plan (1) Complicated UTI (urinary tract infection): (2) Bilateral ureteral obstruction: (3) Cystitis: (4) Obstructed nephrostomy tube: PLAN: Plan continue antibiotics per ID and supportive care continue flushing the nephrostomy tubes ok to go back to every other day with the bladder cathing
[2024-02-27 08:02] VITALS: PULSE 70; RESP 18; O2SAT 99
[2024-02-27] MEDS: Budesonide Respules 0.5 MG/2 ML AMPUL.NEB. INHALATION ×2 (08:02→19:31)
--- NOTE | 2024-02-27 09:12 | PCM.PN.HOSP ---
Reason for Visit Reason for Visit: Diagnoses Malignant neoplasm of colon, unspecified (02/23/24) Crossing vessel and stricture of ureter without hydronephrosis (02/23/24) Acute kidney failure, unspecified (02/23/24) Chronic kidney disease, stage 4 (severe) (02/23/24) Chronic kidney disease, unspecified (02/23/24) Cystitis, unspecified without hematuria (02/23/24) Urinary tract infection, site not specified (02/23/24) Other mechanical complication of nephrostomy catheter, initial encounter (02/23/24) Subjective Subjective Patient seen both urine and blood cultures positive Citrobacter freundii. Case discussed with Dr. Curran patient nephrostomy tubes draining Objective Data Objective Data Vital Signs: Vital Signs Temp Pulse Resp BP Pulse Ox O2 Del Method 98.2 F 70 18 126/78 H 99 Room Air 02/27/24 03:23 02/27/24 08:02 02/27/24 08:02 02/27/24 03:23 02/27/24 08:02 02/27/24 08:02 Oxygen Delivery Method Room Air Weight: 65.771 kg Body Mass Index (BMI) 22.7 Intake & Output: Intake and Output for Last 24 Hours 02/25/24 02/26/24 02/27/24 23:59 23:59 23:59 Intake Total 3121.25 / 3121.25 140 / 140 Output Total 1950 / 2150 2378 / 2378 550 / 550 Balance 1171.25 / 971.25 -2238 / -2238 -550 / -550 Lab / Micro Data 02/27/24 07:03 02/27/24 07:03 Labs: Laboratory Results - last 24 hr 02/27/24 07:03: WBC 4.3 L, RBC 2.83 L, Hgb 8.0 L, Hct 25.9 L, MCV 91.5, MCH 28.3, MCHC 30.9 L, RDW Std Deviation 52.2 H, RDW Coeff of Ismael 15.7 H, Plt Count 299, MPV 9.1, Immature Gran % (Auto) 1.400 H, Neut % (Auto) 75.0 H, Lymph % (Auto) 18.5 L, [place] % (Auto) 4.4, Eos % (Auto) 0.2, Baso % (Auto) 0.5, Absolute Neuts (auto) 3.2, Absolute Lymphs (auto) 0.80 L, Nucleated RBC % 0 Micro: Microbiology 02/25/24 09:48 Aspirate - Other Gram Stain - Final 02/25/24 09:48 Aspirate - Other Wound Culture - Preliminary Citrobacter freundii Alpha hemolytic organism 02/23/24 16:30 Blood Culture (Wb) #2 - Anticubital Right Blood Culture - Preliminary Citrobacter freundii 02/23/24 18:55 Urine, Nephrostomy Urine Culture - Final Raoultella planticola Yeast, not Anjelica albicans Citrobacter freundii 02/23/24 16:55 Blood Culture (Wb) - Chest Blood Culture - Preliminary No growth in 48 hours. 02/23/24 17:50 Mucosa - Nose SARS-CoV-2, Influenza & RSV (PCR) - Final Physical Exam Narrative S GENERAL: cooperative HEENT: Atraumatic; normocephalic EYES; Anicteric, Normal Conjunctiva NECK; supple, normal thyroid, RESPIRATORY: Diminished to auscultation CARDIOVASCULAR: Regular S1 S2, GI: soft, normoactive bowel sounds, ileostomy right lower quadrant : No Renal angle tenderness; bilateral nephrostomy tubes EXTREMITIES: No edema, no clubbing, MUSCULOSKELETAL: no muscle wasting NEURO: Awake; no lateralizing signs. SKIN: No Rash PSYCH; Flat affect Assessment & Plan Assessment/Plan (1) Acute on chronic kidney failure: QUALIFIERS: Acute renal failure type: unspecified Chronic kidney disease stage: stage 4 (severe) Qualified Code(s): N17.9 - Acute kidney failure, unspecified; N18.4 - Chronic kidney disease, stage 4 (severe) PLAN: Plan Patient is a 73-year-old lady with history of colonic CA status post laparoscopic right colectomy with ileostomy currently on chemo, history of bilateral nephrostomy tubes who presented with fever. Patient was found to have decreased output from her right nephrostomy tube with right hydronephrosis. Admitted to the regular nursing floor for further management 1. Acute complicated UTI ? Patient has history of VRE as well as Enterobacter cloacae infection. Patient was started on meropenem as well as linezolid cultures sent -02/26/2024 septic patient's urine cultures so far positive for Raoultella planticola, Yeast Like Organism, GNR lactose heeler. Patient remains on linezolid as well as meropenem patient was seen in consultation by infectious disease notes and recommendations reviewed ? 02/27/2024;Patient seen both urine and blood cultures positive Citrobacter freundii. Case discussed with Dr. Curran patient nephrostomy tubes draining 2. Obstructed right nephrostomy tube ? Plan was for patient to have undergone change of nephrostomy tube by IR. Carr. Patient initially was however able to get the nephrostomy tube to drain freely with 20 mL of purulent fluid taken out and sent for cultures. 3. Anemia - Secondary to chronic disorder as well as anemia of malignancy, monitoring H&H and transfuse if patient becomes symptomatic or hemoglobin falls below 7 4. Acute kidney injury ? Patient baseline creatinine 1.53 from 422 2023. Creatinine on admission was 3.45. Started on IV fluid with subsequent monitoring of electrolytes ordered 5. Chronic kidney disease stage III ? Patient presented with MAJO management as discussed above 6. History of metastatic adenocarcinoma of the Colon (2017); s/p laparoscopic right colectomy with ileostomy and PORT on chemotherapy. Patient is managed by Dr. Whyte plan is for patient to resume her chemo following her discharge 7. Hypertension - Blood pressure controlled, home medications continued with dose adjustment as needed 8. 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 Patient's apixaban did continue Time spent in the patient's overall evaluation,decision-making process, review of diagnostic data, adjustment of management, discussion with other providers, nursing nursing and ancillary staff involved in patient's care documentation, 35 Minutes Charges/Coding Visit Charges Inpatient E&M: 34132 Subs Hosp L2
[2024-02-27 09:34] VITALS: BP 131/71; PULSE 88; RESP 18; TEMP 36.7; O2SAT 99
[2024-02-27] MEDS: Meropenem 500 MG in 0.9% Normal Saline (50mL MB+) 50 ML 100 MG IV ×2 (09:44→22:05)
[2024-02-27] MEDS: amLODIPine 5 MG Tablet PO (09:44)
[2024-02-27] MEDS: Loratadine 10 MG Tablet PO (09:44)
[2024-02-27] MEDS: APIXABAN 5 MG TABLET PO ×2 (09:44→22:08)
[2024-02-27] MEDS: Pantoprazole Sodium 40 MG Tablet PO (09:44)
[2024-02-27] MEDS: 0.9% Saline Lock 10 ML Syringe IV (09:45)
[2024-02-27 09:50] LABS: Anion Gap 7 (5-15); BUN 32 mg/dL (7-18); BUN/Creat Ratio 12.9 RATIO (10-20); Calcium,Total 9.1 mg/dL (8.5-10.1); Chloride 111 mmol/L (98-107); Creatinine, Serum 2.49 mg/dL (0.55-1.02); EST Glomerular Filtration Rate 20 mL/min (>60); Est Glom Filt Rate - Afr Amer 25 mL/min (>60); Estimated Creatinine Clearance 20.15 ml/min; Glucose 96 mg/dL (74-106); Potassium 4.5 mmol/L (3.5-5.1); Sodium Level 138 mmol/L (136-145)
--- NOTE | 2024-02-27 09:58 | CASEMGMT ---
BASSAM CM into pt room, pt stated prefers [facility] pharmacy if any medications are ordered at [place].
[2024-02-27 14:30] VITALS: BP 120/71; PULSE 86; RESP 18; TEMP 36.9; O2SAT 99
--- NOTE | 2024-02-27 17:41 | NURSING ---
Call from lab pt had a positive preliminary reading on her blood cx that was gram negative rods. made aware.
[2024-02-27 19:31] VITALS: PULSE 92; RESP 16
[2024-02-27 19:47] VITALS: BP 136/69; PULSE 86; RESP 20; TEMP 36.7; O2SAT 99
--- NOTE | 2024-02-27 19:55 | MDS.RN ---
flushed [place] nephrostomies, genna. it well.
[2024-02-28] MEDS: 0.9% Normal Saline (250mL Bag) 250 ML 15 ML IV (03:22)
[2024-02-28 03:36] VITALS: BP 134/82; PULSE 80; RESP 16; TEMP 36.9; O2SAT 98
[2024-02-28 07:03] LABS: Absolute Lymphocyte Count 0.68 X10^3/uL (0.83-4.51); Absolute Neutrophil Count 2.9 X10^3/uL (2.0-7.7); Basophil# 0.02 X10^3/uL; Basophil% 0.5 % (0-1); Eosinophil# 0.03 X10^3/uL; Eosinophils% 0.8 % (0-5); Hematocrit 25.3 % (37-47); Hemoglobin 7.8 g/dL (12.0-15.0); Lymphocyte # 0.68 X10^3/ul (0.83-4.51); Lymphocyte % 17.7 % (19-41); Mean Corp Hgb Conc 30.8 g/dL (32-36); Mean Corpuscular Volume 90.7 fL (81-99); Mean Platelet Vol. 9.1 fl (6.2-12.0); Monocyte# 0.17 X10^3/uL; Monocyte% 4.4 % (0-10); NRBC Flagged by Analyzer 0 % (0-5); Neutrophil # 2.88 X10^3/uL (2.7-7.7); Neutrophil % 74.8 % (47-70); Platelet Count 293 K/mm3 (150-450); RBC Distribution Width CV 15.7 % (11.6-14.6); Red Blood Count 2.79 M/mm3 (4.2-5.4); White Blood Count 3.9 K/mm3 (4.4-11.0)
[2024-02-28 08:08] LABS: Anion Gap 7 (5-15); BUN 39 mg/dL (7-18); BUN/Creat Ratio 18.1 RATIO (10-20); Calcium,Total 8.8 mg/dL (8.5-10.1); Chloride 111 mmol/L (98-107); Creatinine, Serum 2.16 mg/dL (0.55-1.02); EST Glomerular Filtration Rate 24 mL/min (>60); Est Glom Filt Rate - Afr Amer 29 mL/min (>60); Estimated Creatinine Clearance 23.23 ml/min; Glucose 93 mg/dL (74-106); Potassium 4.3 mmol/L (3.5-5.1); Sodium Level 138 mmol/L (136-145)
[2024-02-28 08:19] VITALS: O2SAT 97
--- NOTE | 2024-02-28 08:39 | PCM.PN.HOSP ---
Reason for Visit Reason for Visit: Diagnoses Malignant neoplasm of colon, unspecified (02/23/24) Crossing vessel and stricture of ureter without hydronephrosis (02/23/24) Acute kidney failure, unspecified (02/23/24) Chronic kidney disease, stage 4 (severe) (02/23/24) Chronic kidney disease, unspecified (02/23/24) Cystitis, unspecified without hematuria (02/23/24) Urinary tract infection, site not specified (02/23/24) Other mechanical complication of nephrostomy catheter, initial encounter (02/23/24) Subjective Subjective Repeat culture from patient nephrostomy tube positive Citrobacter freundii (sensitivities reviewed) Enterococcus faecium (sensitivities pending) Objective Data Objective Data Vital Signs: Vital Signs Temp Pulse Resp BP Pulse Ox O2 Del Method 98.4 F 80 16 134/82 H 97 Room Air 02/28/24 03:36 02/28/24 03:36 02/28/24 03:36 02/28/24 03:36 02/28/24 08:19 02/28/24 08:19 Oxygen Delivery Method Room Air Weight: 65.771 kg Body Mass Index (BMI) 22.7 Intake & Output: Intake and Output for Last 24 Hours 02/26/24 02/27/24 02/28/24 23:59 23:59 23:59 Intake Total 140 / 140 240 / 240 400 / 400 Output Total 2378 / 2378 2024 / 2024 550 / 550 Balance -2238 / -2238 -1785 / -1785 -150 / -150 Lab / Micro Data 02/28/24 06:45 02/28/24 06:45 Labs: Laboratory Results - last 24 hr 02/27/24 07:03: Sodium 138, Potassium 4.5, Chloride 111 H, Carbon Dioxide 20.0 L, Anion Gap 7, BUN 32 H, Creatinine 2.49 H, Estim Creat Clear Calc 20.15, Est GFR (MDRD) Af Amer 25 L, Est GFR (MDRD) Non-Af 20 L, BUN/Creatinine Ratio 12.9, Glucose 96, Calcium 9.1 02/28/24 06:45: WBC 3.9 L, RBC 2.79 L, Hgb 7.8 L, Hct 25.3 L, MCV 90.7, MCH 28.0, MCHC 30.8 L, RDW Std Deviation 52.0 H, RDW Coeff of Ismael 15.7 H, Plt Count 293, MPV 9.1, Immature Gran % (Auto) 1.800 H, Neut % (Auto) 74.8 H, Lymph % (Auto) 17.7 L, [place] % (Auto) 4.4, Eos % (Auto) 0.8, Baso % (Auto) 0.5, Absolute Neuts (auto) 2.9, Absolute Lymphs (auto) 0.68 L, Nucleated RBC % 0, Sodium 138, Potassium 4.3, Chloride 111 H, Carbon Dioxide 20.0 L, Anion Gap 7, BUN 39 H, Creatinine 2.16 H, Estim Creat Clear Calc 23.23, Est GFR (MDRD) Af Amer 29 L, Est GFR (MDRD) Non-Af 24 L, BUN/Creatinine Ratio 18.1, Glucose 93, Calcium 8.8 Micro: Microbiology 02/25/24 09:48 Aspirate - Other Gram Stain - Final 02/25/24 09:48 Aspirate - Other Wound Culture - Preliminary Citrobacter freundii Enterococcus faecium 02/25/24 09:48 Aspirate - Other Anaerobic Culture - Preliminary Checking for anaerobes, further studies to follow. 02/23/24 16:55 Blood Culture (Wb) - Chest Blood Culture - Preliminary 02/23/24 16:30 Blood Culture (Wb) #2 - Anticubital Right Blood Culture - Preliminary Citrobacter freundii 02/23/24 18:55 Urine, Nephrostomy Urine Culture - Final Raoultella planticola Yeast, not Anjelica albicans Citrobacter freundii 02/23/24 17:50 Mucosa - Nose SARS-CoV-2, Influenza & RSV (PCR) - Final Physical Exam Narrative S GENERAL: cooperative HEENT: Atraumatic; normocephalic EYES; Anicteric, Normal Conjunctiva NECK; supple, normal thyroid, RESPIRATORY: Diminished to auscultation CARDIOVASCULAR: Regular S1 S2, GI: soft, normoactive bowel sounds, ileostomy right lower quadrant : No Renal angle tenderness; bilateral nephrostomy tubes EXTREMITIES: No edema, no clubbing, MUSCULOSKELETAL: no muscle wasting NEURO: Awake; no lateralizing signs. SKIN: No Rash PSYCH; Flat affect Assessment & Plan Assessment/Plan (1) Acute on chronic kidney failure: QUALIFIERS: Acute renal failure type: unspecified Chronic kidney disease stage: stage 4 (severe) Qualified Code(s): N17.9 - Acute kidney failure, unspecified; N18.4 - Chronic kidney disease, stage 4 (severe) PLAN: Plan Patient is a 73-year-old lady with history of colonic CA status post laparoscopic right colectomy with ileostomy currently on chemo, history of bilateral nephrostomy tubes who presented with fever. Patient was found to have decreased output from her right nephrostomy tube with right hydronephrosis. Admitted to the regular nursing floor for further management 1. Acute complicated UTI ? Patient has history of VRE as well as Enterobacter cloacae infection. Patient was started on meropenem as well as linezolid cultures sent -02/26/2024 septic patient's urine cultures so far positive for Raoultella planticola, Yeast Like Organism, GNR lactose bone puller. Patient remains on linezolid as well as meropenem patient was seen in consultation by infectious disease notes and recommendations reviewed ? 02/27/2024;Patient seen both urine and blood cultures positive Citrobacter freundii. Case discussed with Dr. Curran patient nephrostomy tubes draining ?02/28/2024; repeat culture from patient nephrostomy tube positive Citrobacter freundii (sensitivities reviewed) Enterococcus faecium (sensitivities pending) 2. Obstructed right nephrostomy tube ? Plan was for patient to have undergone change of nephrostomy tube by IR. Dr. Doyle was however able to get the nephrostomy tube to drain freely with 20 mL of purulent fluid taken out and sent for cultures. 3. Anemia - Secondary to chronic disorder as well as anemia of malignancy, monitoring H&H and transfuse if patient becomes symptomatic or hemoglobin falls below 7 ? 02/28/2024 hemoglobin remained stable at 7.8 4. Acute kidney injury ? Patient baseline creatinine 1.53 from 01/15/2024. Creatinine on admission was 3.45. Started on IV fluid with subsequent monitoring of electrolytes ordered ? 02/28/2024; patient creatinine down to 3.12 5. Chronic kidney disease stage III ? Patient presented with MAJO management as discussed above 6. History of metastatic adenocarcinoma of the Colon (2018); s/p laparoscopic right colectomy with ileostomy and PORT on chemotherapy. Patient is managed by Dr. Whyte plan is for patient to resume her chemo following her discharge 7. Hypertension - Blood pressure controlled, home medications continued with dose adjustment as needed 8. 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 Patient's apixaban did continue Time spent in the patient's overall evaluation,decision-making process, review of diagnostic data, adjustment of management, discussion with other providers, nursing nursing and ancillary staff involved in patient's care documentation, 37 Minutes Charges/Coding Visit Charges Inpatient E&M: 38234 Subs Hosp L2
--- NOTE | 2024-02-28 08:40 | WOUNDNOTE ---
In to assess the ostomy appliance. patient states she is feeling much better today and is hoping to be discharged today. pt denies need for appliance change since it was just changed on Sunday. Pt denies further needs at this time.
[2024-02-28 09:21] VITALS: BP 128/74; PULSE 85; RESP 16; TEMP 36.9; O2SAT 99
[2024-02-28] MEDS: APIXABAN 5 MG TABLET PO (09:44)
[2024-02-28] MEDS: Meropenem 500 MG in 0.9% Normal Saline (50mL MB+) 50 ML 100 MG IV (09:45)
[2024-02-28] MEDS: amLODIPine 5 MG Tablet PO (09:45)
[2024-02-28] MEDS: Pantoprazole Sodium 40 MG Tablet PO (09:45)
[2024-02-28] MEDS: Loratadine 10 MG Tablet PO (09:45)
--- NOTE | 2024-02-28 10:57 | PCM.PN.ID ---
Physical Exam Narrative Feeling better, no fever, no abd pain. Const alert and no apparent distress General Appearance: cooperative Resp normal air movement and clear to auscultation bilaterally Cardio regular rate and regular rhythm GI soft to palpation, non-tender and non-distended Skin no rashes or lesions noted ID ID: Route of nutrition/ use of supplements: [] Nutritional Intake: [] IV Site: [] Dennis Catheter: [] Assessment & Plan Assessment/Plan (1) Obstructed nephrostomy tube: (2) Complicated UTI (urinary tract infection): PLAN: Complicated by citro bacteremia 02/24. MAJO improved, Ucx with small amount raoultella, citro, and yeast here. Aspirate cx 02/24 with citro and e faecium. 02/21 [facility] ucx with heavy growth citrobacter. Prior h/o VRE. Overall, she is feeling better. Will change to linezolid/cefdinir for 10 more days, ok for d/c home. Will follow (3) Adenocarcinoma of colon: (4) Bacteremia due to Gram-negative bacteria:
--- NOTE | 2024-02-28 12:08 | CASEMGMT ---
RN IVON called and spoke with Ariela in pharmacy in regards to medication order for Linezolid, Ariela stated medication already processed and there is no charge for to pt.
--- NOTE | 2024-02-28 12:11 | PCM.DC.SUM ---
Providers Date of Admission: 02/23/24 Date of Discharge: 02/28/24 Primary Care Physician: Dr. Adrián Mckee MD Consultations 02/23/24 21:29 Consult: Infectious Disease Routine Consulting Provider: Arthur Valverde Reason for Consult: Recurrent UTI EMERGENT Consult: No Notified: Yes Date Notified: 02/25/24 Time Notified: 06:29 Method of Notification: Text 02/24/24 07:56 Consult: Nephrology Routine Consulting Provider: Cassandra Yarbrough Reason for Consult: MAJO on CKD EMERGENT Consult: No Notified: Yes Date Notified: 02/24/24 Time Notified: 07:57 Method of Notification: Text 02/24/24 11:05 Consult: Interventional Radiology Routine Consulting Provider: Doron Doyle Reason for Consult: Right Nephrostomy tube blocked for 2 days, no urine draining EMERGENT Consult: No MD Notified: Yes Date Notified: 02/24/24 Time Notified: 11:07 Method of Notification: Verbal 02/24/24 11:08 Consult: Urology Routine Consulting Provider: Janet Curran Reason for Consult: MAJO on CKD, Right nep tube blockage EMERGENT Consult: No MD Notified: Yes Date Notified: 02/24/24 Time Notified: 11:08 Method of Notification: Verbal Reason For Visit: FEVER Diagnosis Discharge Diagnosis (1) Obstructed nephrostomy tube: Status: Acute Code(s): T83.092A - Other mechanical complication of nephrostomy catheter, initial encounter (2) Complicated UTI (urinary tract infection): Status: Acute Code(s): N39.0 - Urinary tract infection, site not specified (3) Adenocarcinoma of colon: Status: Acute Code(s): C18.9 - Malignant neoplasm of colon, unspecified (4) Bacteremia due to Gram-negative bacteria: Status: Acute Code(s): R78.81 - Bacteremia Plan Patient is a 73-year-old lady with history of colonic CA status post laparoscopic right colectomy with ileostomy currently on chemo, history of bilateral nephrostomy tubes who presented with fever. Patient was found to have decreased output from her right nephrostomy tube with right hydronephrosis. Admitted to the regular nursing floor for further management 1. Acute complicated UTI ? Patient has history of VRE as well as Enterobacter cloacae infection. 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 Patient remains on linezolid as well as meropenem patient was seen in consultation by infectious disease notes and recommendations reviewed ? 02/27/2024;Patient seen both urine and blood cultures positive Citrobacter freundii. Case discussed with Dr. Curran patient nephrostomy tubes draining ?02/28/2024; repeat culture from patient nephrostomy tube positive Citrobacter freundii (sensitivities reviewed) Enterococcus faecium (sensitivities pending) ? Patient was discharged home on cefdinir and linezolid for 10 days per recommendations from ID 2. Obstructed right nephrostomy tube ? Plan was for patient to have undergone change of nephrostomy tube by IR. Dr. Doyle was however able to get the nephrostomy tube to drain freely with 20 mL of purulent fluid taken out and sent for cultures. 3. Anemia - Secondary to chronic disorder as well as anemia of malignancy, monitoring H&H and transfuse if patient becomes symptomatic or hemoglobin falls below 7 ? 02/28/2024 hemoglobin remained stable at 7.8 4. Acute kidney injury ? Patient baseline creatinine 1.53 from 01/15/2024. Creatinine on admission was 3.45. Started on IV fluid with subsequent monitoring of electrolytes ordered ? 02/28/2024; patient creatinine down to 3.12 5. Chronic kidney disease stage III ? Patient presented with MAJO management as discussed above 6. History of metastatic adenocarcinoma of the Colon (2018); s/p laparoscopic right colectomy with ileostomy and PORT on chemotherapy. Patient is managed by Dr. Whyte plan is for patient to resume her chemo following her discharge 7. Hypertension - Blood pressure controlled, home medications continued with dose adjustment as needed 8. 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 Patient's apixaban did continue Time spent in the patient's overall evaluation,decision-making process, review of diagnostic data, adjustment of management, discussion with other providers, nursing nursing and ancillary staff involved in patient's care documentation, 37 Minutes Medications at Discharge Home Medications omeprazole 20 mg capsule,delayed release 40 mg PO DAILY ACID REFLUX 01/12/17 loperamide 2 mg capsule 2 mg PO Q6H PRN DIARRHEA 08/01/23 loratadine 10 mg tablet (Claritin) 10 mg PO DAILY ALLERGIES 08/01/23 amlodipine 5 mg tablet 5 mg PO DAILY BLOOD PRESSURE 09/11/23 apixaban 5 mg tablet (Eliquis) 5 mg PO BID BLOOD THINNER 09/11/23 trifluridine 20 mg-tipiracil 8.19 mg tablet (Lonsurf) 1 tab PO BID 01/03/24 cefdinir 300 mg capsule 300 mg PO DAILY 10 days #10 caps 02/28/24 linezolid 600 mg tablet 600 mg PO BID 10 days #20 tabs 02/28/24 Physical Exam Narrative S GENERAL: cooperative HEENT: Atraumatic; normocephalic EYES; Anicteric, Normal Conjunctiva NECK; supple, normal thyroid, RESPIRATORY: Diminished to auscultation CARDIOVASCULAR: Regular S1 S2, GI: soft, normoactive bowel sounds, ileostomy right lower quadrant : No Renal angle tenderness; bilateral nephrostomy tubes EXTREMITIES: No edema, no clubbing, MUSCULOSKELETAL: no muscle wasting NEURO: Awake; no lateralizing signs. SKIN: No Rash PSYCH; Flat affect Weight / BMI Weight Weight: 65.771 kg Body Mass Index (BMI) 22.7 ABG / Lab / Microbiology Data 02/28/24 06:45 02/28/24 06:45 Laboratory: Laboratory Results - last 24 hr 02/28/24 06:45: WBC 3.9 L, RBC 2.79 L, Hgb 7.8 L, Hct 25.3 L, MCV 90.7, MCH 28.0, MCHC 30.8 L, RDW Std Deviation 52.0 H, RDW Coeff of Ismael 15.7 H, Plt Count 293, MPV 9.1, Immature Gran % (Auto) 1.800 H, Neut % (Auto) 74.8 H, Lymph % (Auto) 17.7 L, [place] % (Auto) 4.4, Eos % (Auto) 0.8, Baso % (Auto) 0.5, Absolute Neuts (auto) 2.9, Absolute Lymphs (auto) 0.68 L, Nucleated RBC % 0, Sodium 138, Potassium 4.3, Chloride 111 H, Carbon Dioxide 20.0 L, Anion Gap 7, BUN 39 H, Creatinine 2.16 H, Estim Creat Clear Calc 23.23, Est GFR (MDRD) Af Amer 29 L, Est GFR (MDRD) Non-Af 24 L, BUN/Creatinine Ratio 18.1, Glucose 93, Calcium 8.8 Microbiology: Microbiology 02/23/24 16:55 Blood Culture (Wb) - Chest Blood Culture - Preliminary 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 02/23/24 16:30 Blood Culture (Wb) #2 - Anticubital Right Blood Culture - Preliminary Citrobacter freundii 02/23/24 18:55 Urine, Nephrostomy Urine Culture - Final Raoultella planticola Yeast, not Anjelica albicans Citrobacter freundii 02/23/24 17:50 Mucosa - Nose SARS-CoV-2, Influenza & RSV (PCR) - Final D/C Instructions Discharge Diet: No restrictions Discharge Activity: Return to Normal Activity Call your doctor if you observe: Fever of 101 or Higher, Shortness of breath, Fainting spells and Chest pain Meaningful Use Info Meaningful Use Meaningful Use Diagnoses (Choose all that apply): None applicable Ischemic Stroke Statin Dosing Therapy Reference: STATIN DOSE THERAPY REFERENCE: * Patients > 75 years receive moderate or high dose statin therapy. * Patients 75 years or YOUNGER should receive HIGH intensity statin dose unless contraindicated. You will be required to document reason for non-treatment if statin daily dose does not meet guidelines. HIGH DOSE STATIN THERAPY DAILY Atorvastatin > than or = to 40 mg Rosuvastatin > than or = to 20 mg Amlodipine + Atorvastatin > than or = to 2.5/40 mg Ezetimibe + Simvastatin 10/80 mg Simvastatin 80mg Discharge Plan Admission Admit Date/Time: 02/23/24 19:01 Attending Provider: Kyle Harrington Primary Care Provider: Adrián Mckee Consulting Providers: Marco Antonio Patel; Cassandra Yarbrough; Doron Doyle; Janet Curran; Arthur Valverde; Papi Campos Discharge Orders/Prescriptions Prescriptions: New linezolid 600 mg Tablet 600 mg PO BID 10 Days Qty: 20 0RF cefdinir 300 mg capsule 300 mg PO DAILY 10 Days Qty: 10 0RF Continued omeprazole 20 MG capsule 40 mg PO DAILY loperamide 2 mg capsule 2 mg PO Q6H PRN (Reason: DIARRHEA ) loratadine [Claritin] 10 mg tablet 10 mg PO DAILY Eliquis 5 mg tablet 5 mg PO BID amlodipine 5 mg tablet 5 mg PO DAILY Rx Instructions: Hold for SBP less than 130 mmHg Lonsurf 20-8.19 mg tablet 1 tab PO BID Referrals / Follow Up: Adrián Mckee MD [Primary Care Provider] - Disposition Disposition (needs filled in before D/C Order can be placed): Home Health Service Charges/Coding Visit Charges Inpatient E&M: 87838 Disch Hosp >30min
[2024-02-28] MEDS: Linezolid 600 MG Tablet PO (12:20)
[2024-02-28] MEDS: Cefdinir 300 MG Capsule PO (12:20)
--- NOTE | 2024-02-28 12:37 | CASEMGMT ---
BASSAM DEL VALLE into pt room, pt sitting up in bed in no distress. Informed pt we will notify [facility] of DC instructions. Pt would like [facility] pharmacy to bring medications to room before she leaves. Pt states she has a ride home, denies any home going needs at this time. Called [facility] pharmacy, spoke to Corrie, they will bring meds to pt room.
[2024-02-28] MEDS: 0.9% Saline Lock 10 ML Syringe IV (13:42)
== END 2024-02-28 14:49 | disposition home health service (06) | DRG 699 ==
LOC: ED 18:54 → MS3 20:13
PROVIDERS: Internal Medicine; Nurse Practitioner; Admitting Provider Internal Medicine; Emergency Provider Emergency Medicine; PCP Family Medicine; Visit Provider Internal Medicine
DX: T83.092A Other mechanical complication of nephrostomy catheter, initial encounter (principal); N17.9 Acute kidney failure, unspecified; R78.81 Bacteremia; N13.6 Pyonephrosis; N18.4 Chronic kidney disease, stage 4 (severe); C78.00 Secondary malignant neoplasm of unspecified lung; C18.9 Malignant neoplasm of colon, unspecified; D63.1 Anemia in chronic kidney disease; Z93.2 Ileostomy status; I12.9 Hypertensive chronic kidney disease with stage 1 through stage 4 chronic kidney disease, or unspecified chronic kidney disease; K21.9 Gastro-esophageal reflux disease without esophagitis; M43.6 Torticollis; D63.0 Anemia in neoplastic disease; Z92.21 Personal history of antineoplastic chemotherapy; Z80.3 Family history of malignant neoplasm of breast; Z86.16 Personal history of COVID-19; Z80.8 Family history of malignant neoplasm of other organs or systems; Z87.891 Personal history of nicotine dependence; Z79.01 Long term (current) use of anticoagulants; B96.89 Other specified bacterial agents as the cause of diseases classified elsewhere; Y82.9 Unspecified medical devices associated with adverse incidents
CPT/HCPCS: 36415; 36591; 71046; 74176; 74425; 80048; 80053; 80076; 81001; 82550; 83605; 83735; 84100; 85025; 86140; 87040; 87070; 87075; 87077; 87086; 87088; 87186; 87205; 87631; 94640; 96361; 96374; 96375; 99282; 99285; J2020; J2185; J7030; J7040; J7050; A4216; J2405